=== PATIENT | male | born 1995 | race African-American/Black ===

== ENCOUNTER 2016-08-25 08:01 | Emergency (ER) | payer SELFPAY ==
[~2016-08-25] VITALS: Ht 172.7 cm; Wt 117.9 kg
[2016-08-25] MEDS ORDERED: METF500T4 PO (08:05)
[2016-08-25] MEDS ORDERED: 0.9 % SODIUM CHLORIDE 10 ML DISP.SYRIN. IV PRN (08:15)
--- NOTE | 2016-08-25 08:15 | PHYS DOC ---
Past Medical History Past Medical History: Diabetes-Type I Past Surgical History: No Surgical History Smokin Pack Per Day Alcohol Use: Occasionally Drug Use: None Adult General Chief Complaint Chief Complaint: ABDOMINAL PAIN HPI HPI Patient is a pleasant 21-year-old male with a history of diabetes who presents with nausea vomiting that began last night after eating a meal. He's had no sick contacts no recent travel and no recent consumption of raw foods the pain in the abdomen began in the epigastric region prior to nausea and vomiting. Nausea and vomiting began about 2 hours after eating. Patient admits to having mild yellow strings in his vomit without blood no diarrhea loose stool. Patient admits to no recent antibiotics or travel outside the country. 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 Patient's diabetes has been well-controlled according to him. Urine output has been normal patient denies any fevers, change in symptoms with movements. Pain is worse with vomiting area patient denies any trauma. Review of Systems Review of Systems Constitutional: A patient has had chills and diaphoresis with secondary to pain Eyes: Denies change in visual acuity, redness, or eye pain [] HENT: Denies nasal congestion or sore throat [] Respiratory: Denies cough or shortness of breath [] Cardiovascular: No additional information not addressed in HPI [] GI: Complaints of diffuse abdominal pain with nausea vomiting no diarrhea no stools no constipation : Denies dysuria or hematuria [] Musculoskeletal: Denies back pain or joint pain [] Integument: Denies rash or skin lesions [] Neurologic: Denies headache, focal weakness or sensory changes [] Endocrine: Denies polyuria or polydipsia [] Current Medications Current Medications Current Medications Medications (Trade) Dose Ordered Sig/Stephanie Start Time Stop Time Status Last Admin Dose Admin Hydromorphone HCl (Dilaudid) 1 mg PRN Q15MIN PRN 08/25/16 08:15 08/26/16 08:14 08/25/16 09:40 1 MG Info (Do NOT chart on this entry -- for MONITORING) 1 each PRN DAILY PRN 08/25/16 08:30 08/27/16 08:29 Iohexol (Omnipaque 300 Mg/ml) 75 ml 1X ONCE 08/25/16 09:00 08/25/16 09:03 DC 08/25/16 08:52 75 ML Ondansetron HCl (Zofran) 4 mg 1X ONCE 08/25/16 08:30 08/25/16 08:31 DC 08/25/16 08:25 4 MG Sodium Chloride (Normal Saline Flush) 10 ml QSHIFT PRN 08/25/16 08:15 Allergies Allergies Allergies Coded Allergies Type Severity Reaction Last Updated Verified No Known Drug Allergies 08/25/16 No Physical Exam Physical Exam Constitutional: Well developed, well nourished, patient is mildly obese uncomfortable mildly diaphoretic secondary to pain. HENT: Normocephalic, atraumatic, bilateral external ears normal, dry mucous membranes oral exudates, nose normal. [] Eyes: PERRLA, EOMI, conjunctiva normal, no discharge. [] Neck: Normal range of motion, no tenderness, supple, no stridor. [] Cardiovascular:Heart rate regular rhythm, no murmur [] Lungs & Thorax: Bilateral breath sounds clear to auscultation [] Abdomen: Hyperactive bowel sounds tenderness in the epigastrium with some voluntary guarding no rebound or organomegaly Skin: Warm, diaphoretic secondary pain no erythema no rash Back: No tenderness, no CVA tenderness. [] Extremities: No tenderness, no cyanosis, no clubbing, ROM intact, no edema. [] Neurologic: Alert and oriented X 3, normal motor function, normal sensory function, no focal deficits noted. [] Psychologic: Patient anxious but exhibits normal judgment Current Patient Data Vital Signs Vital Signs Date Time Temp Pulse Resp B/P (MAP) Pulse Ox O2 Delivery O2 Flow Rate FiO2 08/25/16 09:40 16 97 Room Air 08/25/16 08:06 97.9 61 151/62 (91) 97.9 Lab Values Laboratory Tests Test 08/25/16 08:09 08/25/16 08:15 08/25/16 08:27 08/25/16 09:30 Glucose (Fingerstick) 318 mg/dL (70-99) H White Blood Count 5.7 x10^3/uL (4.0-11.0) Red Blood Count 5.30 x10^6/uL (4.30-5.70) Hemoglobin 15.8 g/dL (13.0-17.5) Hematocrit 46.8 % (39.0-53.0) Mean Corpuscular Volume 88 fL (79-100) Mean Corpuscular Hemoglobin 30 pg (25-35) Mean Corpuscular Hemoglobin Concent 34 g/dL (31-37) Red Cell Distribution Width 13.9 % (11.5-14.5) Platelet Count 295 x10^3/uL (140-400) Neutrophils (%) (Auto) 37 % (31-73) Lymphocytes (%) (Auto) 52 % (24-48) H Monocytes (%) (Auto) 9 % (0-9) Eosinophils (%) (Auto) 2 % (0-3) Basophils (%) (Auto) 1 % (0-3) Neutrophils # (Auto) 2.1 x10^3uL (1.8-7.7) Lymphocytes # (Auto) 2.9 x10^3/uL (1.0-4.8) Monocytes # (Auto) 0.5 x10^3/uL (0.0-1.1) Eosinophils # (Auto) 0.1 x10^3/uL (0.0-0.7) Basophils # (Auto) 0.0 x10^3/uL (0.0-0.2) Sodium Level 137 mmol/L (136-145) Potassium Level 4.0 mmol/L (3.5-5.1) Chloride Level 98 mmol/L (98-107) Carbon Dioxide Level 26 mmol/L (21-32) Anion Gap 13 (6-14) Blood Urea Nitrogen 11 mg/dL (8-26) Creatinine 1.3 mg/dL (0.7-1.3) Estimated GFR (Cockcroft-Gault) 69.7 BUN/Creatinine Ratio 8 (6-20) Glucose Level 337 mg/dL (70-99) H Calcium Level 9.2 mg/dL (8.5-10.1) Total Bilirubin 1.4 mg/dL (0.2-1.0) H Aspartate Amino Transferase (AST) 20 U/L (15-37) Alanine Aminotransferase (ALT) 49 U/L (16-63) Alkaline Phosphatase 69 U/L (46-116) Total Protein 8.3 g/dL (6.4-8.2) H Albumin 3.8 g/dL (3.4-5.0) Albumin/Globulin Ratio 0.8 (1.0-1.7) L Lipase 128 U/L (73-393) POC Troponin I 0.00 ng/ml (<0.08) Urine Collection Type Unknown Urine Color Yellow Urine Clarity Clear Urine pH 6.5 Urine Specific [place] >=1.030 Urine Protein Negative mg/dL (NEG-TRACE) Urine Glucose (UA) >=1000 mg/dL (NEG) Urine Ketones (Stick) Negative mg/dL (NEG) Urine Blood Negative (NEG) Urine Nitrite Negative (NEG) Urine Bilirubin Negative (NEG) Urine Urobilinogen Dipstick 0.2 mg/dL (0.2 mg/dL) Urine Leukocyte Esterase Negative (NEG) Urine RBC 0 /HPF (0-2) Urine WBC 5-10 /HPF (0-4) Urine Squamous Epithelial Cells Many /LPF Urine Bacteria Few /HPF (0-FEW) Urine Mucus Mod /LPF Laboratory Tests 08/25/16 08:15 Laboratory Tests 08/25/16 08:15 EKG EKG [] Radiology/Procedures Radiology/Procedures [] PATIENT: TIMA SINGH ACCOUNT: [id number] : 1995 LOCATION: ER AGE: 21 SEX: M EXAM STATUS: PRE ER ORD. PHYSICIAN: GT HODGE MD REASON: diffuse ab pain PROCEDURE: CT ABD PELV W/ IV CONTRST ONLY Indication: Diffuse abdominal pain. Axial imaging through the abdomen and pelvis was performed after the administration of intravenous contrast. No prior studies are available for comparison. The lung bases are clear. The liver is unremarkable. The gallbladder is unremarkable. The pancreas and spleen are unremarkable. No adrenal mass is identified. The kidneys are unremarkable. Aorta is nonaneurysmal. The small and large bowel loops are normal caliber. The appendix is visualized and unremarkable. No free fluid, free air or fluid collection is detected. The bladder is unremarkable. Impression: Unremarkable CT of the abdomen and pelvis. DICTATED and SIGNED BY: SAVANNA HUYNH MD DATE: 08/25/16 0908 CC: GT HODGE MD ~ 80 scan report reviewed by me and Dr. Hodge Course & Med Decision Making Course & Med Decision Making Pertinent Labs and Imaging studies reviewed. (See chart for details) [Patient presents with sudden onset of nausea and vomiting with history of diabetes and be concerned for issues with DKA possible gastroenteritis versus virus versus small bowel obstruction versus other infectious etiologies. Patient live in acute evaluation with CBC CMP serum acetone if required point-of -care glucose fluids antiemetics and pain meds.] Initial reevaluation patient feels improved, only laboratory results that are positive at this time or an elevated glucose of 337 with no evidence of DKA. Reviewed labs white count is normal kidney function is normal patient's vital signs were normal will continue to administer fluids, antiemetics and pain control and discharge patient home once he can tolerate an oral challenge. Patient finally produced His urine for us I reviewed his CAT scan with him and our plan for disposition. Patient is fairly unremarkable as for another pain medication dose before being discharged. Patient tolerated oral challenge seems well-hydrated at this time and will follow-up with his primary care doctor. Analysis reviewed demonstrate any epithelial cells and bacteria likely contaminated specimen he did have +1000 glucose but no ketones. Urine specific gravity was within normal limits. Impression: Nausea and vomiting, abdominal pain unclear etiology, hyperglycemia without evidence of DKA. Disposition: Primary care doctor follow-up 24 hours return to ER for any increasing pain, new symptoms, blood in his stool blood in his vomit. Abdominal pain precautions given. I wanted patient to understand that I doubt this is appendicitis but this is a can team of disease if symptoms continue or localize in the right lower quadrant would this return to the ER for repeat evaluation. Dragon Disclaimer Dragon Disclaimer This electronic medical record was generated, in whole or in part, using a voice recognition dictation system. Departure Departure Impression: Primary Impression: Abdominal pain Additional Impressions: Hyperglycemia Nausea and vomiting Disposition: 01 HOME, SELF-CARE Condition: GUARDED Patient Instructions: Abdominal Pain (Nonspecific), Hyperglycemia, Nausea and Vomiting Additional Instructions: Please do not use your metformin for the next 48 hours as seconds causing an unsafe lactic acidosis from its metabolic properties. Please follow-up with your primary care doctor in 24-48 hours for repeat evaluation if symptoms continue please return to the ER if symptoms increase or worsen or localize to the right lower quadrant. I would also encourage her to continue to force fluid hydrate herself as best can use the nausea and vomiting medications as desired. I also has provided medication for pain that I would like to use for the short- term. Please return immediately for any fever and wanted to point to or if this blood in his stool or vomit. Scripts Dicyclomine Hcl (BENTYL) 10 Mg Capsule 1 CAP PO TID, #15 CAP 1 Refill Prov: GT HODGE MD 08/25/16 Ondansetron (ZOFRAN ODT) 8 Mg Tab.rapdis 8 MG PO BID Y for NAUSEA/VOMITING for 5 Days, #10 TAB Prov: GT HODGE MD 08/25/16 Hydrocodone Bit/Acetaminophen (HYDROCODONE-APAP 5-325 ) 1 Each Tablet 1 TAB PO PRN Q6HRS Y for PAIN, #10 TAB 0 Refills Prov: GT HODGE MD 08/25/16 Problem Qualifiers GT HODGE MD August 25, 2016 08:15
[2016-08-25 08:25] LABS: BASO % 1 % (0-3); EOS % 2 % (0-3); HEMATOCRIT 46.8 % (39.0-53.0); HEMOGLOBIN 15.8 g/dL (13.0-17.5); LYMPH # 2.9 x10^3/uL (1.0-4.8); LYMPH % 52 % (24-48); MEAN CORPUSCULAR HEMOGLOBIN 30 pg (25-35); MEAN CORPUSCULAR HGB CONC 34 g/dL (31-37); MEAN CORPUSCULAR VOLUME 88 fL (79-100); MONO % 9 % (0-9); NEUT % 37 % (31-73); PLATELET COUNT 295 x10^3/uL (140-400); RED CELL DISTRIBUTION WIDTH 13.9 % (11.5-14.5); WHITE BLOOD COUNT 5.7 x10^3/uL (4.0-11.0)
[2016-08-25] MEDS: HYDROmorphone 2 MG/ML VIAL IV/SQ PRN ×2 (08:26→09:40)
[2016-08-25] MEDS ORDERED: ONDANSETRON PF 4 MG/2 ML VIAL. IV ONE (08:30)
[2016-08-25] MEDS ORDERED: IV NORMAL SALINE 1000ML BAG 1,000 ML IV SCH (08:30)
[2016-08-25] MEDS ORDERED: CONTRAST GIVEN MC PRN (08:30)
[2016-08-25 08:38] LABS: CALCIUM 9.2 mg/dL (8.5-10.1); CREATININE 1.3 mg/dL (0.7-1.3); GFR 69.7
[2016-08-25 08:44] LABS: ALBUMIN 3.8 g/dL (3.4-5.0); ALBUMIN/GLOBULIN RATIO 0.8 (1.0-1.7); TOTAL BILIRUBIN 1.4 mg/dL (0.2-1.0); TOTAL PROTEIN 8.3 g/dL (6.4-8.2)
[2016-08-25] MEDS ORDERED: IOHEXOL 300 MG/ML 75 ML VIAL IV ONE (09:00)
--- NOTE | 2016-08-25 09:13 | RAD ---
Indication: Diffuse abdominal pain. Axial imaging through the abdomen and pelvis was performed after the administration of intravenous contrast. No prior studies are available for comparison. The lung bases are clear. The liver is unremarkable. The gallbladder is unremarkable. The pancreas and spleen are unremarkable. No adrenal mass is identified. The kidneys are unremarkable. Aorta is nonaneurysmal. The small and large bowel loops are normal caliber. The appendix is visualized and unremarkable. No free fluid, free air or fluid collection is detected. The bladder is unremarkable. Impression: Unremarkable CT of the abdomen and pelvis.
[2016-08-25 09:35] LABS: BILIRUBIN,URINE NEGATIVE (NEG); GLUCOSE,URINE >=1000 mg/dL (NEG); NITRITE,URINE NEGATIVE (NEG); PH,URINE 6.5; PROTEIN,URINE NEGATIVE (NEG-TRACE); UROBILINOGEN,URINE 0.2 mg/dL (0.2 mg/dL)
[2016-08-25 09:48] LABS: BACTERIA,URINE FEW /HPF (0-FEW); RBC,URINE 0 /HPF (0-2); SQUAMOUS EPITHELIAL CELL,UR MANY /LPF
[2016-08-25 10:00] VITALS: BP 111/73
[2016-08-25] MEDS ORDERED: HYDR-2666 PO (10:04)
[2016-08-25] MEDS ORDERED: ONDA8TAB12 PO (10:04)
[2016-08-25] MEDS ORDERED: DICY10CA53 PO (10:04)
== END 2016-08-25 11:08 | disposition home or self-care (01) ==
LOC: ER 08:01
DX: R11.2 Nausea with vomiting, unspecified (principal); R10.84 Generalized abdominal pain; R10.13 Epigastric pain; E10.9 Type 1 diabetes mellitus without complications; R73.9 Hyperglycemia, unspecified; F17.200 Nicotine dependence, unspecified, uncomplicated
CPT/HCPCS: 36415; 74177; 80053; 81001; 82947; 83690; 84484; 85027; 87086; 96361; 96374; 96375; 99285; J1170; J2405; J7030; Q9967

== ENCOUNTER 2017-12-23 03:02 | Inpatient (IN) | payer OTHER ==
[~2017-12-23] VITALS: Ht 172.7 cm; Wt 77.2 kg
[~2017-12-23 03:02] MED LIST: DICY10CA53 PO; HYDR-2758 PO; METF500T16 PO; ONDA8TAB12 PO
[2017-12-23] MEDS ORDERED: INSULIN,REGULAR 150 UNIT DRIP 150 ML IV ONE (03:30)
[2017-12-23] MEDS ORDERED: IV NORMAL SALINE 1000ML BAG 1,000 ML IV ONE ×2 (03:30)
--- NOTE | 2017-12-23 03:30 | PHYS DOC ---
Past Medical History Past Medical History: Diabetes-Type I Past Surgical History: No Surgical History Smoking: Cigarettes Alcohol Use: Occasionally Drug Use: Marijuana Adult General Chief Complaint Chief Complaint: NAUSEA/VOMITING/DIARRHA HPI HPI Patient is a 22-year-old -German male who has a past history of insulin -dependent diabetes. He states he has not taken his insulin for several days, and began experiencing some vomiting this evening. He denies any pain, denies any chest pain or shortness of breath, abdominal pain, diarrhea, dizziness or lightheadedness. There are no alleviating or exacerbating factors to his symptoms. He has been in DKA in the past. His bedside blood sugar read "high". Review of Systems Review of Systems Constitutional: Denies fever or chills [] Eyes: Denies change in visual acuity, redness, or eye pain [] HENT: Denies nasal congestion or sore throat [] Respiratory: Denies cough or shortness of breath [] Cardiovascular: The patient denies any shortness of breath, chest pain, palpitations, or orthopnea [] GI: Denies abdominal pain, bloody emesis, bloody stools or diarrhea [] : Denies dysuria or hematuria [] Musculoskeletal: Denies back pain or joint pain [] Integument: Denies rash or skin lesions [] Neurologic: Denies headache, focal weakness or sensory changes [] Endocrine: Denies polyuria or polydipsia [] All other systems were reviewed and found to be within normal limits, except as documented in this note. Current Medications Current Medications Current Medications Medications (Trade) Dose Ordered Sig/Stephanie Start Time Stop Time Status Last Admin Dose Admin Insulin Human Regular 150 ml @ 0 mls/hr 1X ONCE 12/23/17 03:30 12/23/17 03:33 DC Sodium Chloride 1,000 ml @ 1,000 mls/hr 1X ONCE 12/23/17 03:30 12/23/17 04:29 12/23/17 03:30 1,000 MLS/HR Allergies Allergies Allergies Coded Allergies Type Severity Reaction Last Updated Verified No Known Drug Allergies 08/25/16 No Physical Exam Physical Exam PHYSICAL EXAM: CONSTITUTIONAL: Well developed, well nourished HEAD: normocephalic, atraumatic EENT: PERRL, EOMI. Conjunctivae normal color, sclerae non-icteric; mildly dry mucous membranes. NECK: Supple, non-tender; no meningismus. LUNGS: Lungs CTA, breathing even and unlabored. Normal air movement. HEART: Regular rate and rhythm, no murmur CHEST: No deformity; non-tender ABDOMEN: The abdomen is soft, and non-tender, no masses or bruits. EXTREM: Normal ROM; no deformity, no calf tenderness. Normal pulses palpable in all extremities. There is no pedal edema. SKIN: No rash; no diaphoresis NEURO: Alert; normal speech and cognition; CN's grossly intact; strength grossly intact without focal deficit. BACK: No CVA TTP. Current Patient Data Vital Signs Vital Signs Date Time Temp Pulse Resp B/P (MAP) Pulse Ox O2 Delivery O2 Flow Rate FiO2 12/23/17 03:17 97.4 55 18 122/62 (82) 98 Room Air 97.4 Lab Values Laboratory Tests Test 12/23/17 03:14 12/23/17 03:20 12/23/17 03:38 Urine Collection Type Unknown Urine Color Yellow Urine Clarity Clear Urine pH 7.0 Urine Specific [place] >=1.030 Urine Protein Negative mg/dL (NEG-TRACE) Urine Glucose (UA) >=1000 mg/dL (NEG) Urine Ketones (Stick) Trace mg/dL (NEG) Urine Blood Negative (NEG) Urine Nitrite Negative (NEG) Urine Bilirubin Negative (NEG) Urine Urobilinogen Dipstick 0.2 mg/dL (0.2 mg/dL) Urine Leukocyte Esterase Negative (NEG) Urine RBC 0 /HPF (0-2) Urine WBC Occ /HPF (0-4) Urine Squamous Epithelial Cells Few /LPF Urine Bacteria 0 /HPF (0-FEW) White Blood Count 9.7 x10^3/uL (4.0-11.0) Red Blood Count 5.09 x10^6/uL (4.30-5.70) Hemoglobin 15.9 g/dL (13.0-17.5) Hematocrit 44.9 % (39.0-53.0) Mean Corpuscular Volume 88 fL (79-100) Mean Corpuscular Hemoglobin 31 pg (25-35) Mean Corpuscular Hemoglobin Concent 36 g/dL (31-37) Red Cell Distribution Width 12.6 % (11.5-14.5) Platelet Count 378 x10^3/uL (140-400) Neutrophils (%) (Auto) 63 % (31-73) Lymphocytes (%) (Auto) 31 % (24-48) Monocytes (%) (Auto) 6 % (0-9) Eosinophils (%) (Auto) 1 % (0-3) Basophils (%) (Auto) 0 % (0-3) Neutrophils # (Auto) 6.1 x10^3uL (1.8-7.7) Lymphocytes # (Auto) 3.0 x10^3/uL (1.0-4.8) Monocytes # (Auto) 0.6 x10^3/uL (0.0-1.1) Eosinophils # (Auto) 0.1 x10^3/uL (0.0-0.7) Basophils # (Auto) 0.0 x10^3/uL (0.0-0.2) Sodium Level 134 mmol/L (136-145) L Potassium Level 4.2 mmol/L (3.5-5.1) Chloride Level 96 mmol/L (98-107) L Carbon Dioxide Level 28 mmol/L (21-32) Anion Gap 10 (6-14) Blood Urea Nitrogen 18 mg/dL (8-26) Creatinine 1.2 mg/dL (0.7-1.3) Estimated GFR (Cockcroft-Gault) 91.6 BUN/Creatinine Ratio 15 (6-20) Glucose Level 588 mg/dL (70-99) *H Calcium Level 9.9 mg/dL (8.5-10.1) Phosphorus Level 4.5 mg/dL (2.6-4.7) Magnesium Level 1.7 mg/dL (1.8-2.4) L Total Bilirubin 0.6 mg/dL (0.2-1.0) Aspartate Amino Transferase (AST) 13 U/L (15-37) L Alanine Aminotransferase (ALT) 19 U/L (16-63) Alkaline Phosphatase 155 U/L (46-116) H Total Protein 7.6 g/dL (6.4-8.2) Albumin 3.5 g/dL (3.4-5.0) Albumin/Globulin Ratio 0.9 (1.0-1.7) L Acetone Level Neg (NEG) POC Venous pH 7.49 (7.32-7.42) H POC Venous pCO2 43 mmHg (41-51) POC Venous pO2 72 mmHg (20-40) H Venous Blood HCO3 32 mmol/L (24-28) H POC Venous O2 Saturation (Oleg) 95 % POC FiO2 21.0 Laboratory Tests 12/23/17 03:20 Laboratory Tests 12/23/17 03:20 EKG EKG [Normal sinus rhythm at a rate of 54 bpm, normal axis, normal intervals. There are no acute ischemic ST/T changes.] Radiology/Procedures Radiology/Procedures [] Course & Med Decision Making Course & Med Decision Making Pertinent Lab studies reviewed. (See chart for details) []4:15 AM: The patient's condition remained stable. Although he does not appear to be in DKA he states he goes into DKA very easily. The patient be admitted for further glycemic management. K+ will be added to his fluids given his insulin drip. Dragon Disclaimer Dragon Disclaimer This electronic medical record was generated, in whole or in part, using a voice recognition dictation system. Departure Departure Impression: Primary Impression: Hyperglycemia Additional Impression: Noncompliance with medication regimen Disposition: ADMITTED INPATIENT Admitting Physician: Elizabeth Sr Condition: STABLE Referrals: NO PCP (PCP) Problem Qualifiers SHABBIR GORDON MD Dec 23, 2017 03:30
[2017-12-23 03:34] LABS: BILIRUBIN,URINE NEGATIVE (NEG); CLARITY,URINE CLEAR; COLOR,URINE YELLOW; NITRITE,URINE NEGATIVE (NEG); PROTEIN,URINE NEGATIVE (NEG-TRACE); UROBILINOGEN,URINE 0.2 mg/dL (0.2 mg/dL)
[2017-12-23 03:43] LABS: ISTAT BE VENOUS 9 mmol/L (0-3); ISTAT HCO3 VEN 32 mmol/L (24-28); ISTAT PCO2 VEN 43 mmHg (41-51); ISTAT PH VEN 7.49 (7.32-7.42); ISTAT PO2 VEN 72 mmHg (20-40); ISTAT SAT O2 VEN 95 %; ISTAT TCO2 VEN 34 mmol/L (21-32)
[2017-12-23 03:50] LABS: ALBUMIN 3.5 g/dL (3.4-5.0); ALBUMIN/GLOBULIN RATIO 0.9 (1.0-1.7); ALK PHOS 155 U/L (46-116); ALT (SGPT) 19 U/L (16-63); ANION GAP 10 (6-14); AST (SGOT) 13 U/L (15-37); BLOOD UREA NITROGEN 18 mg/dL (8-26); BUN/CREATININE RATIO 15 (6-20); CALCIUM 9.9 mg/dL (8.5-10.1); CARBON DIOXIDE 28 mmol/L (21-32); CHLORIDE 96 mmol/L (98-107); CREATININE 1.2 mg/dL (0.7-1.3); GFR 91.6; MAGNESIUM 1.7 mg/dL (1.8-2.4); PHOSPHORUS 4.5 mg/dL (2.6-4.7); POTASSIUM 4.2 mmol/L (3.5-5.1); SODIUM 134 mmol/L (136-145); TOTAL BILIRUBIN 0.6 mg/dL (0.2-1.0); TOTAL PROTEIN 7.6 g/dL (6.4-8.2)
[2017-12-23 03:51] LABS: GLUCOSE 588 mg/dL (70-99)
[2017-12-23 03:52] LABS: BASO % 0 % (0-3); EOS # 0.1 x10^3/uL (0.0-0.7); EOS % 1 % (0-3); HEMATOCRIT 44.9 % (39.0-53.0); HEMOGLOBIN 15.9 g/dL (13.0-17.5); LYMPH % 31 % (24-48); MEAN CORPUSCULAR HEMOGLOBIN 31 pg (25-35); MEAN CORPUSCULAR HGB CONC 36 g/dL (31-37); MEAN CORPUSCULAR VOLUME 88 fL (79-100); MONO # 0.6 x10^3/uL (0.0-1.1); MONO % 6 % (0-9); NEUT # 6.1 x10^3uL (1.8-7.7); NEUT % 63 % (31-73); PLATELET COUNT 378 x10^3/uL (140-400); RED BLOOD COUNT 5.09 x10^6/uL (4.30-5.70); RED CELL DISTRIBUTION WIDTH 12.6 % (11.5-14.5); WHITE BLOOD COUNT 9.7 x10^3/uL (4.0-11.0)
[2017-12-23 03:59] LABS: ACETONE NEG (NEG)
[2017-12-23 04:02] LABS: BACTERIA,URINE 0 /HPF (0-FEW); RBC,URINE 0 /HPF (0-2); SQUAMOUS EPITHELIAL CELL,UR FEW /LPF; WBC,URINE OCC /HPF (0-4)
[2017-12-23] MEDS ORDERED: MAGNESIUM SULFATE 1GM 100 ML IV ONE (04:30)
[2017-12-23] MEDS ORDERED: POTASSIUM CL 40MEQ IN 0.9%NACL 1,000 ML IV ONE (04:30)
[2017-12-23 05:40] VITALS: BP 107/54
--- NOTE | 2017-12-23 07:32 | EKG ---
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
[2017-12-23 07:38] VITALS: BP 106/56
[2017-12-23] MEDS ORDERED: INSULIN GLARGINE 300 UNITS/3 ML INSULN.PEN. SQ ONE (11:30)
[2017-12-23 11:45] VITALS: BP 105/53
[2017-12-23] MEDS ORDERED: traMADol 50 MG TABLET PO PRN (12:00)
[2017-12-23] MEDS ORDERED: DEXTROSE 50% 25 GM / 50ML DISP.SYRIN. IV PRN (12:00)
[2017-12-23] MEDS: INSULIN LISPRO 300 UNITS/3 ML INSULN.PEN. SQ SCH ×3 (12:00→17:19)
[2017-12-23] MEDS ORDERED: DOCUSATE SODIUM 100 MG CAPSULE. PO PRN (12:00)
[2017-12-23] MEDS ORDERED: ACETAMINOPHEN 325 MG TABLET. PO PRN (12:00)
[2017-12-23] MEDS ORDERED: ONDANSETRON PF 4 MG/2 ML VIAL. IV PRN (12:00)
[2017-12-23] MEDS ORDERED: MORPHINE SULFATE 2 MG/ML VIAL. IV PRN (12:00)
[2017-12-23 13:19] LABS: CALCIUM 8.6 mg/dL (8.5-10.1); GFR 113.1; MAGNESIUM 1.9 mg/dL (1.8-2.4); POTASSIUM 3.6 mmol/L (3.5-5.1)
--- NOTE | 2017-12-23 14:12 | PDOC1 ---
History and Physical Date of Admission Date of Admission 12/23/17 Identification/Chief Complaint Chief Complaint N/V Source Source: Chart review, Patient History of Present Illness History of Present Illness Patient is a 22-year-old -[place] male who has a past history of insulin -dependent diabetes for N/V. Pt has type 1 DM, on lantus 24u qhs, 7u tid at home. not taking it for 2 days since run off needles. has had N/V yesterday, mild abd pain, all gone today. came to ER last night, Glucose >500, no DKA, on insulin drip overnight. no . He denies any pain, denies any chest pain or shortness of breath, abdominal pain, diarrhea, dizziness or lightheadedness. There are no alleviating or exacerbating factors to his symptoms. He has been in DKA in the past. His bedside blood sugar read "high". Past Medical History Endocrine: Diabetes Past Surgical History Past Surgical History: No pertinent history Family History Family History: Hypertension Social History Smoke: <1 pack per day ALCOHOL: occassional Drugs: Marijuana Current Problem List Problem List Problems Medical Problems: (1) Hyperglycemia Status: Acute (2) Noncompliance with medication regimen Status: Acute Current Medications Current Medications Current Medications Medications (Trade) Dose Ordered Sig/Stephanie Start Time Stop Time Status Last Admin Dose Admin Acetaminophen (Tylenol) 650 mg PRN Q6HRS PRN 12/23/17 12:00 Dextrose (Dextrose 50%-Water Syringe) 12.5 gm PRN Q15MIN PRN 12/23/17 12:00 Docusate Sodium (Colace) 100 mg PRN DAILY PRN 12/23/17 12:00 Insulin Glargine (Lantus) 20 units QHS 12/23/17 21:00 Insulin Human Lispro (HumaLOG) 0-9 UNITS TIDWMEALS 12/23/17 12:00 Insulin Human Regular 150 ml @ 0 mls/hr 1X ONCE 12/23/17 03:30 12/23/17 03:33 DC 12/23/17 04:46 9 MLS/HR Magnesium Sulfate/ Dextrose 100 ml @ 100 mls/hr 1X ONCE 12/23/17 04:30 12/23/17 05:29 DC 12/23/17 11:26 100 MLS/HR Morphine Sulfate (Morphine Sulfate) 2 mg PRN Q2HR PRN 12/23/17 12:00 Ondansetron HCl (Zofran) 4 mg PRN Q6HRS PRN 12/23/17 12:00 Potassium Chloride/Sodium Chloride 1,000 ml @ 125 mls/hr 1X ONCE 12/23/17 04:30 12/23/17 12:29 DC 12/23/17 06:09 125 MLS/HR Sodium Chloride 1,000 ml @ 1,000 mls/hr 1X ONCE 12/23/17 03:30 12/23/17 04:29 DC 12/23/17 03:30 1,000 MLS/HR Tramadol HCl (Ultram) 50 mg PRN Q6HRS PRN 12/23/17 12:00 Allergies Allergies Allergies Coded Allergies Type Severity Reaction Last Updated Verified No Known Drug Allergies 08/25/16 No ROS Review of System CONSTITUTIONAL: No fever or chills EYES: No recent changes SKIN: No rash or itching CARDIOVASCULAR: No chest pain, syncope, palpitations, or edema RESPIRATORY: No SOB or cough GASTROINTESTINAL: No nausea, vomiting or abdominal pain NEUROLOGICAL: No headaches or weakness ENDOCRINE: No cold or heat intolerance GENITOURINARY: No urgency or frequency of urination MUSCULOSKELETAL: No back pain or joint pain LYMPHATICS: No enlarged lymph nodes PSYCHIATRIC: No anxiety or depression Physical Exam Physical Exam GEN.: No apparent distress. Alert and oriented. HEENT: Head is normocephalic, atraumatic NECK: Supple. LUNGS: Clear to auscultation. HEART: RRR, S1, S2 present. Peripheral pulses intact ABDOMEN: Soft, nontender. Positive bowel sounds. EXTREMITIES: Without any cyanosis. NEUROLOGIC: Normal speech, normal tone PSYCHIATRIC: Normal affect, normal mood. SKIN: No ulcerations Vitals Vitals Vital Signs Date Time Temp Pulse Resp B/P (MAP) Pulse Ox O2 Delivery O2 Flow Rate FiO2 12/23/17 11:45 98.1 70 18 105/53 (70) 100 Room Air 98.1 Labs Labs Laboratory Tests Test 12/23/17 03:14 12/23/17 03:20 12/23/17 03:38 12/23/17 04:24 Urine Collection Type Unknown Urine Color Yellow Urine Clarity Clear Urine pH 7.0 Urine Specific Julian >=1.030 Urine Protein Negative mg/dL (NEG-TRACE) Urine Glucose (UA) >=1000 mg/dL (NEG) Urine Ketones (Stick) Trace mg/dL (NEG) Urine Blood Negative (NEG) Urine Nitrite Negative (NEG) Urine Bilirubin Negative (NEG) Urine Urobilinogen Dipstick 0.2 mg/dL (0.2 mg/dL) Urine Leukocyte Esterase Negative (NEG) Urine RBC 0 /HPF (0-2) Urine WBC Occ /HPF (0-4) Urine Squamous Epithelial Cells Few /LPF Urine Bacteria 0 /HPF (0-FEW) White Blood Count 9.7 x10^3/uL (4.0-11.0) Red Blood Count 5.09 x10^6/uL (4.30-5.70) Hemoglobin 15.9 g/dL (13.0-17.5) Hematocrit 44.9 % (39.0-53.0) Mean Corpuscular Volume 88 fL (79-100) Mean Corpuscular Hemoglobin 31 pg (25-35) Mean Corpuscular Hemoglobin Concent 36 g/dL (31-37) Red Cell Distribution Width 12.6 % (11.5-14.5) Platelet Count 378 x10^3/uL (140-400) Neutrophils (%) (Auto) 63 % (31-73) Lymphocytes (%) (Auto) 31 % (24-48) Monocytes (%) (Auto) 6 % (0-9) Eosinophils (%) (Auto) 1 % (0-3) Basophils (%) (Auto) 0 % (0-3) Neutrophils # (Auto) 6.1 x10^3uL (1.8-7.7) Lymphocytes # (Auto) 3.0 x10^3/uL (1.0-4.8) Monocytes # (Auto) 0.6 x10^3/uL (0.0-1.1) Eosinophils # (Auto) 0.1 x10^3/uL (0.0-0.7) Basophils # (Auto) 0.0 x10^3/uL (0.0-0.2) Sodium Level 134 mmol/L (136-145) Potassium Level 4.2 mmol/L (3.5-5.1) Chloride Level 96 mmol/L (98-107) Carbon Dioxide Level 28 mmol/L (21-32) Anion Gap 10 (6-14) Blood Urea Nitrogen 18 mg/dL (8-26) Creatinine 1.2 mg/dL (0.7-1.3) Estimated GFR (Cockcroft-Gault) 91.6 BUN/Creatinine Ratio 15 (6-20) Glucose Level 588 mg/dL (70-99) Calcium Level 9.9 mg/dL (8.5-10.1) Phosphorus Level 4.5 mg/dL (2.6-4.7) Magnesium Level 1.7 mg/dL (1.8-2.4) Total Bilirubin 0.6 mg/dL (0.2-1.0) Aspartate Amino Transf (AST/SGOT) 13 U/L (15-37) Alanine Aminotransferase (ALT/SGPT) 19 U/L (16-63) Alkaline Phosphatase 155 U/L (46-116) Total Protein 7.6 g/dL (6.4-8.2) Albumin 3.5 g/dL (3.4-5.0) Albumin/Globulin Ratio 0.9 (1.0-1.7) Acetone Level Neg (NEG) Bedside Venous pH 7.49 (7.32-7.42) Bedside Venous pCO2 43 mmHg (41-51) Bedside Venous pO2 72 mmHg (20-40) Venous Blood HCO3 32 mmol/L (24-28) POC Venous O2 Saturation (Oleg) 95 % Bedside FiO2 21.0 Glucose (Fingerstick) 512 mg/dL (70-99) Test 12/23/17 07:04 12/23/17 07:56 12/23/17 09:07 12/23/17 09:58 Glucose (Fingerstick) 283 mg/dL (70-99) 180 mg/dL (70-99) 243 mg/dL (70-99) 255 mg/dL (70-99) Test 12/23/17 11:08 12/23/17 11:52 12/23/17 12:50 Glucose (Fingerstick) 84 mg/dL (70-99) 87 mg/dL (70-99) Sodium Level 136 mmol/L (136-145) Potassium Level 3.6 mmol/L (3.5-5.1) Chloride Level 101 mmol/L (98-107) Carbon Dioxide Level 28 mmol/L (21-32) Anion Gap 7 (6-14) Blood Urea Nitrogen 13 mg/dL (8-26) Creatinine 1.0 mg/dL (0.7-1.3) Estimated GFR (Cockcroft-Gault) 113.1 Glucose Level 197 mg/dL (70-99) Calcium Level 8.6 mg/dL (8.5-10.1) Magnesium Level 1.9 mg/dL (1.8-2.4) Laboratory Tests Test 12/23/17 03:14 12/23/17 03:20 12/23/17 03:38 12/23/17 04:24 Urine Collection Type Unknown Urine Color Yellow Urine Clarity Clear Urine pH 7.0 Urine Specific Julian >=1.030 Urine Protein Negative mg/dL (NEG-TRACE) Urine Glucose (UA) >=1000 mg/dL (NEG) Urine Ketones (Stick) Trace mg/dL (NEG) Urine Blood Negative (NEG) Urine Nitrite Negative (NEG) Urine Bilirubin Negative (NEG) Urine Urobilinogen Dipstick 0.2 mg/dL (0.2 mg/dL) Urine Leukocyte Esterase Negative (NEG) Urine RBC 0 /HPF (0-2) Urine WBC Occ /HPF (0-4) Urine Squamous Epithelial Cells Few /LPF Urine Bacteria 0 /HPF (0-FEW) White Blood Count 9.7 x10^3/uL (4.0-11.0) Red Blood Count 5.09 x10^6/uL (4.30-5.70) Hemoglobin 15.9 g/dL (13.0-17.5) Hematocrit 44.9 % (39.0-53.0) Mean Corpuscular Volume 88 fL (79-100) Mean Corpuscular Hemoglobin 31 pg (25-35) Mean Corpuscular Hemoglobin Concent 36 g/dL (31-37) Red Cell Distribution Width 12.6 % (11.5-14.5) Platelet Count 378 x10^3/uL (140-400) Neutrophils (%) (Auto) 63 % (31-73) Lymphocytes (%) (Auto) 31 % (24-48) Monocytes (%) (Auto) 6 % (0-9) Eosinophils (%) (Auto) 1 % (0-3) Basophils (%) (Auto) 0 % (0-3) Neutrophils # (Auto) 6.1 x10^3uL (1.8-7.7) Lymphocytes # (Auto) 3.0 x10^3/uL (1.0-4.8) Monocytes # (Auto) 0.6 x10^3/uL (0.0-1.1) Eosinophils # (Auto) 0.1 x10^3/uL (0.0-0.7) Basophils # (Auto) 0.0 x10^3/uL (0.0-0.2) Sodium Level 134 mmol/L (136-145) Potassium Level 4.2 mmol/L (3.5-5.1) Chloride Level 96 mmol/L (98-107) Carbon Dioxide Level 28 mmol/L (21-32) Anion Gap 10 (6-14) Blood Urea Nitrogen 18 mg/dL (8-26) Creatinine 1.2 mg/dL (0.7-1.3) Estimated GFR (Cockcroft-Gault) 91.6 BUN/Creatinine Ratio 15 (6-20) Glucose Level 588 mg/dL (70-99) Calcium Level 9.9 mg/dL (8.5-10.1) Phosphorus Level 4.5 mg/dL (2.6-4.7) Magnesium Level 1.7 mg/dL (1.8-2.4) Total Bilirubin 0.6 mg/dL (0.2-1.0) Aspartate Amino Transf (AST/SGOT) 13 U/L (15-37) Alanine Aminotransferase (ALT/SGPT) 19 U/L (16-63) Alkaline Phosphatase 155 U/L (46-116) Total Protein 7.6 g/dL (6.4-8.2) Albumin 3.5 g/dL (3.4-5.0) Albumin/Globulin Ratio 0.9 (1.0-1.7) Acetone Level Neg (NEG) Bedside Venous pH 7.49 (7.32-7.42) Bedside Venous pCO2 43 mmHg (41-51) Bedside Venous pO2 72 mmHg (20-40) Venous Blood HCO3 32 mmol/L (24-28) POC Venous O2 Saturation (Oleg) 95 % Bedside FiO2 21.0 Glucose (Fingerstick) 512 mg/dL (70-99) Test 12/23/17 07:04 12/23/17 07:56 12/23/17 09:07 12/23/17 09:58 Glucose (Fingerstick) 283 mg/dL (70-99) 180 mg/dL (70-99) 243 mg/dL (70-99) 255 mg/dL (70-99) Test 12/23/17 11:08 12/23/17 11:52 12/23/17 12:50 Glucose (Fingerstick) 84 mg/dL (70-99) 87 mg/dL (70-99) Sodium Level 136 mmol/L (136-145) Potassium Level 3.6 mmol/L (3.5-5.1) Chloride Level 101 mmol/L (98-107) Carbon Dioxide Level 28 mmol/L (21-32) Anion Gap 7 (6-14) Blood Urea Nitrogen 13 mg/dL (8-26) Creatinine 1.0 mg/dL (0.7-1.3) Estimated GFR (Cockcroft-Gault) 113.1 Glucose Level 197 mg/dL (70-99) Calcium Level 8.6 mg/dL (8.5-10.1) Magnesium Level 1.9 mg/dL (1.8-2.4) VTE Prophylaxis Ordered VTE Prophylaxis Devices: Yes VTE Pharmacological Prophylaxi: Yes Assessment/Plan Assessment/Plan uncontrolled dm1 smoker drug use with marijuana hypomagnesemia plan: no DKA stop insulin drip lantus 15u x1 then cont lantus 20u qhs, humalog 6u tid, ssi dc ivf ada diet repleted Mag repeat labs dvt ppx pt concerned about pancreatic Ca in family, asked him to stop smoking. pt understood. check hba1c WILLIAM WANG MD Dec 23, 2017 14:12
[2017-12-23] MEDS ORDERED: ENOXAPARIN 40 MG/0.4 ML SYRINGE. SQ SCH (15:00)
[2017-12-23 15:30] VITALS: BP 111/65
[2017-12-23 19:26] VITALS: BP 116/51
[2017-12-23] MEDS ORDERED: INSULIN GLARGINE 300 UNITS/3 ML INSULN.PEN. SQ SCH (21:00)
[2017-12-23 23:52] VITALS: BP 127/65
[2017-12-24 03:05] VITALS: BP 115/67
[2017-12-24 04:48] LABS: BASO % 0 % (0-3); EOS # 0.1 x10^3/uL (0.0-0.7); EOS % 1 % (0-3); HEMOGLOBIN 14.2 g/dL (13.0-17.5); LYMPH # 3.6 x10^3/uL (1.0-4.8); LYMPH % 53 % (24-48); MEAN CORPUSCULAR HEMOGLOBIN 31 pg (25-35); MEAN CORPUSCULAR HGB CONC 35 g/dL (31-37); MEAN CORPUSCULAR VOLUME 90 fL (79-100); MONO # 0.4 x10^3/uL (0.0-1.1); MONO % 5 % (0-9); NEUT # 2.8 x10^3uL (1.8-7.7); NEUT % 41 % (31-73); PLATELET COUNT 310 x10^3/uL (140-400); RED BLOOD COUNT 4.56 x10^6/uL (4.30-5.70); RED CELL DISTRIBUTION WIDTH 12.9 % (11.5-14.5); WHITE BLOOD COUNT 6.9 x10^3/uL (4.0-11.0)
[2017-12-24 04:56] LABS: CALCIUM 8.6 mg/dL (8.5-10.1); CREATININE 1.1 mg/dL (0.7-1.3); GFR 101.3; POTASSIUM 3.6 mmol/L (3.5-5.1)
[2017-12-24 07:00] VITALS: BP 116/77
[2017-12-24] MEDS: INSULIN LISPRO 300 UNITS/3 ML INSULN.PEN. SQ SCH ×4 (08:28→12:16)
[2017-12-24 10:38] VITALS: BP 110/72
[2017-12-24] MEDS ORDERED: INSU100I13 SQ (11:15)
[2017-12-24] MEDS ORDERED: INSU100I11 SQ (11:15)
--- NOTE | 2017-12-24 13:06 | PDOC3 ---
Discharge Summary [facility] Date of Admission: Dec 23, 2017 Discharge Date: Dec 24, 2017 Admitting Diagnosis uncontrolled dm1 , hba1c 17 smoker drug use with marijuana hypomagnesemia Final Diagnosis Brief Hospital Course Patient is a 22-year-old -[place] male who has a past history of insulin-dependent diabetes for N/V. Pt has type 1 DM, on lantus 24u qhs, 7u tid at home. not taking it for 2 days since run off needles. has had N/V yesterday, mild abd pain, all gone today. came to ER last night, Glucose >500, no DKA, on insulin drip overnight. no . He denies any pain, denies any chest pain or shortness of breath, abdominal pain, diarrhea, dizziness or lightheadedness. There are no alleviating or exacerbating factors to his symptoms. He has been in DKA in the past. His bedside blood sugar read "high". pt sugar is better with the insulin drip. now at 200s. feels ok. stable to dc. insulin pen needle prescribed. dc time 35min. GEN.: No apparent distress. Alert and oriented. HEENT: Head is normocephalic, atraumatic NECK: Supple. LUNGS: Clear to auscultation. HEART: RRR, S1, S2 present. Peripheral pulses intact ABDOMEN: Soft, nontender. Positive bowel sounds. EXTREMITIES: Without any cyanosis. NEUROLOGIC: Normal speech, normal tone PSYCHIATRIC: Normal affect, normal mood. SKIN: No ulcerations Patient History: Patient reports no known family medical history. Disposition home CONDITION AT DISCHARGE: Improved Scheduled Dicyclomine Hcl (Bentyl), 1 CAP PO TID Insulin Glargine,Hum.rec.anlog (Lantus Solostar), 25 UNITS SQ QHS Insulin Lispro (Humalog), 8 UNITS SQ TIDAC Scheduled PRN Hydrocodone Bit/Acetaminophen (Hydrocodone-Apap 5-325 ), 1 TAB PO PRN Q6HRS PRN for PAIN Ondansetron (Zofran Odt), 8 MG PO BID PRN for NAUSEA/VOMITING Discontinued Medications Metformin Hcl (Metformin Hcl), 500 MG PO BIDWMEALS, (Reported) WILLIAM WANG MD Dec 24, 2017 13:06
[2017-12-24] MEDS ORDERED: INSULIN LISPRO 300 UNITS/3 ML INSULN.PEN. SQ SCH (16:30)
[2017-12-24] MEDS ORDERED: INSULIN GLARGINE 300 UNITS/3 ML INSULN.PEN. SQ SCH (21:00)
== END 2017-12-24 13:15 | disposition home or self-care (01) | DRG 639 ==
LOC: ER 03:02 → 6 SOUTH 04:15
PROVIDERS: ADMIT Internal Medicine; ATTEND Internal Medicine
DX: E10.65 Type 1 diabetes mellitus with hyperglycemia (principal); F12.90 Cannabis use, unspecified, uncomplicated; F17.210 Nicotine dependence, cigarettes, uncomplicated; E83.42 Hypomagnesemia; Z79.4 Long term (current) use of insulin; Z91.14 Patient's other noncompliance with medication regimen; Z82.49 Family history of ischemic heart disease and other diseases of the circulatory system
CPT/HCPCS: 36415; 80048; 80053; 81001; 82010; 82803; 82962; 83036; 83735; 84100; 85025; 93005; 96365; J1815; J3475; J3480; J7030; 99285-25

== ENCOUNTER 2018-02-03 07:48 | Emergency (ER) | payer OTHER ==
[~2018-02-03] VITALS: Ht 172.7 cm; Wt 77.1 kg
[~2018-02-03 07:48] MED LIST changes: +INSU100I11 SQ; +INSU100I13 SQ
[2018-02-03] MEDS ORDERED: ONDANSETRON PF 4 MG/2 ML VIAL. IV ONE (08:15)
[2018-02-03] MEDS ORDERED: IV NORMAL SALINE 1000ML BAG 1,000 ML IV SCH (08:15)
[2018-02-03] MEDS ORDERED: INSULIN,REGULAR 150 UNIT DRIP 150 ML IV ONE (08:15)
--- NOTE | 2018-02-03 08:18 | PHYS DOC ---
Past Medical History Past Medical History: Diabetes-Type I Past Surgical History: No Surgical History Additional Information: 6 cigarettes daily Alcohol Use: Occasionally Additional Information: last drank 1 shot of liquor last night Drug Use: Marijuana Adult General Chief Complaint Chief Complaint: BLOOD SUGAR PROBLEM HPI HPI Patient is a 22 year old male presented to ER today for evaluation of high blood sugar with nausea, vomiting, generalized weakness since last night. Patient is on Lantus. Patient checked his blood sugar this morning and it was too high to measure. Patient has history history of DKA in the past. Patient denies any abdominal pain, no chest pain. Patient said he maybe in DKA again. Review of Systems Review of Systems Constitutional: Denies fever or chills [] Eyes: Denies change in visual acuity, redness, or eye pain [] HENT: Denies nasal congestion or sore throat [] Respiratory: Denies cough or shortness of breath [] Cardiovascular: No additional information not addressed in HPI [] GI: positive for generalized weakness, nausea, vomiting, : Denies dysuria or hematuria [] Musculoskeletal: myalgia, joint pain. Integument: Denies rash or skin lesions [] Neurologic: Denies headache, focal weakness or sensory changes [] Endocrine: Denies polyuria or polydipsia [] All other systems were reviewed and found to be within normal limits, except as documented in this note. Current Medications Current Medications Current Medications Medications (Trade) Dose Ordered Sig/[facility] Start Time Stop Time Status Last Admin Dose Admin Insulin Human Regular (HumuLIN R VIAL) 10 unit 1X ONCE 02/03/18 09:00 02/03/18 09:45 DC Ondansetron HCl (Zofran) 8 mg 1X ONCE 02/03/18 08:15 02/03/18 08:16 DC 02/03/18 08:45 8 MG Sodium Chloride 1,000 ml @ 1,000 mls/hr 1X ONCE 02/03/18 10:45 02/03/18 11:44 DC 02/03/18 10:46 1,000 MLS/HR Allergies Allergies Allergies Coded Allergies Type Severity Reaction Last Updated Verified No Known Drug Allergies 08/25/16 No Physical Exam Physical Exam Constitutional: Well developed, well nourished, no acute distress, non-toxic appearance. [] HENT: Normocephalic, atraumatic, bilateral external ears normal, oropharynx moist, no oral exudates, nose normal. [] Eyes: PERRLA, EOMI, conjunctiva normal, no discharge. [] Neck: Normal range of motion, no tenderness, supple, no stridor. [] Cardiovascular:Heart rate regular rhythm, no murmur [] Lungs & Thorax: Bilateral breath sounds clear to auscultation [] Abdomen: Bowel sounds normal, soft, no tenderness, no masses, no pulsatile masses. [] Skin: Warm, dry, no erythema, no rash. [] Back: No tenderness, no CVA tenderness. [] Extremities: No tenderness, no cyanosis, no clubbing, ROM intact, no edema. [] Neurologic: Alert and oriented X 3, normal motor function, normal sensory function, no focal deficits noted. [] Psychologic: Affect normal, judgement normal, mood normal. [] Current Patient Data Vital Signs Vital Signs Date Time Temp Pulse Resp B/P (MAP) Pulse Ox O2 Delivery O2 Flow Rate FiO2 02/03/18 12:00 80 18 125/61 (82) 98 Room Air 02/03/18 07:56 98.0 98.0 Lab Values Laboratory Tests Test 02/03/18 08:30 02/03/18 08:35 02/03/18 09:25 02/03/18 10:18 White Blood Count 5.1 x10^3/uL (4.0-11.0) Red Blood Count 5.14 x10^6/uL (4.30-5.70) Hemoglobin 15.8 g/dL (13.0-17.5) Hematocrit 45.9 % (39.0-53.0) Mean Corpuscular Volume 89 fL (79-100) Mean Corpuscular Hemoglobin 31 pg (25-35) Mean Corpuscular Hemoglobin Concent 34 g/dL (31-37) Red Cell Distribution Width 13.0 % (11.5-14.5) Platelet Count 239 x10^3/uL (140-400) Neutrophils (%) (Auto) 58 % (31-73) Lymphocytes (%) (Auto) 32 % (24-48) Monocytes (%) (Auto) 8 % (0-9) Eosinophils (%) (Auto) 2 % (0-3) Basophils (%) (Auto) 1 % (0-3) Neutrophils # (Auto) 2.9 x10^3uL (1.8-7.7) Lymphocytes # (Auto) 1.6 x10^3/uL (1.0-4.8) Monocytes # (Auto) 0.4 x10^3/uL (0.0-1.1) Eosinophils # (Auto) 0.1 x10^3/uL (0.0-0.7) Basophils # (Auto) 0.0 x10^3/uL (0.0-0.2) Sodium Level 131 mmol/L (136-145) L Potassium Level 4.8 mmol/L (3.5-5.1) Chloride Level 92 mmol/L (98-107) L Carbon Dioxide Level 24 mmol/L (21-32) Anion Gap 15 (6-14) H Blood Urea Nitrogen 14 mg/dL (8-26) Creatinine 1.3 mg/dL (0.7-1.3) Estimated GFR (Cockcroft-Gault) 83.5 BUN/Creatinine Ratio 11 (6-20) Glucose Level 598 mg/dL (70-99) *H Calcium Level 9.7 mg/dL (8.5-10.1) Total Bilirubin 1.2 mg/dL (0.2-1.0) H Aspartate Amino Transferase (AST) 19 U/L (15-37) Alanine Aminotransferase (ALT) 23 U/L (16-63) Alkaline Phosphatase 105 U/L (46-116) Total Protein 7.8 g/dL (6.4-8.2) Albumin 3.7 g/dL (3.4-5.0) Albumin/Globulin Ratio 0.9 (1.0-1.7) L Lipase 169 U/L (73-393) Acetone Level Mod pos (NEG) Urine Collection Type Unknown Urine Color Yellow Urine Clarity Clear Urine pH 5.5 Urine Specific [place] >=1.030 Urine Protein Negative mg/dL (NEG-TRACE) Urine Glucose (UA) >=1000 mg/dL (NEG) Urine Ketones (Stick) 40 mg/dL (NEG) Urine Blood Negative (NEG) Urine Nitrite Negative (NEG) Urine Bilirubin Negative (NEG) Urine Urobilinogen Dipstick 0.2 mg/dL (0.2 mg/dL) Urine Leukocyte Esterase Negative (NEG) Urine RBC 0 /HPF (0-2) Urine WBC Occ /HPF (0-4) Urine Squamous Epithelial Cells Occ /LPF Urine Bacteria 0 /HPF (0-FEW) Urine Mucus Slight /LPF O2 Saturation 96 % (92-99) Arterial Blood pH 7.37 (7.35-7.45) Arterial Blood pCO2 at Patient Temp 44 mmHg (35-46) Arterial Blood pO2 at Patient Temp 79 mmHg (85-108) L Arterial Blood HCO3 25 mmol/L (21-28) Arterial Blood Base Excess -1 mmol/L (-3-3) FiO2 21.0 Glucose (Fingerstick) 433 mg/dL (70-99) H Test 02/03/18 11:45 Glucose (Fingerstick) 283 mg/dL (70-99) H Laboratory Tests 02/03/18 08:30 Laboratory Tests 02/03/18 08:30 EKG EKG [] Radiology/Procedures Radiology/Procedures [] Course & Med Decision Making Course & Med Decision Making Pertinent Labs and Imaging studies reviewed. (See chart for details) []Patient was given IV fluid, insulin in the ER, his blood sugar improved significantly. Patient was not in DKA. Patient will be discharged home, Dragon Disclaimer Dragon Disclaimer This electronic medical record was generated, in whole or in part, using a voice recognition dictation system. Departure Departure Impression: Primary Impression: Hyperglycemia Disposition: 01 HOME, SELF-CARE Condition: IMPROVED Referrals: UNKNOWN PCP NAME (PCP) FOLLOW UP WITH YOUR PCP THIS WEEK. Patient Instructions: Hyperglycemia ROSA RAVI DO Feb 03, 2018 08:18
--- NOTE | 2018-02-03 08:28 | EKG ---
[facility] [address] [place] [address] Test Date: 2018-02-03 Test Time: 08:18:31 Pat Name: TIMA SINGH Department: Room: Gender: M [employer]: : [id number] Requested By: ROSA RAVI Order Number: [id number] Reading MD: Wayne Johnson MD Measurements Intervals [place] Rate: 58 P: 38 VA: 134 QRS: 73 QRSD: 84 T: 34 QT: 360 QTc: 356 Interpretive Statements SINUS RHYTHM CONSIDER PERICARDITIS J-POINT ELEVATION Electronically Signed On 02-03-2018 11:04:27 CDT by Wayne Johnson MD
--- NOTE | 2018-02-03 08:35 | RAD ---
EXAM: Abdomen acute complete. HISTORY: Pain. COMPARISON: CT dated 08/25/2016. FINDINGS: A frontal view of the chest and frontal upright and supine views of the abdomen are obtained. There is no infiltrate, pleural effusion or pneumothorax. The heart is normal in size. There is a nonobstructive bowel gas pattern. There is no free air. IMPRESSION: 1. No acute pulmonary finding. 2. Nonobstructive bowel gas pattern. Electronically signed by: Lynn Bruner MD (02/03/2018 8:32 AM) [place] [id number]
[2018-02-03 08:41] LABS: BASO % 1 % (0-3); EOS # 0.1 x10^3/uL (0.0-0.7); EOS % 2 % (0-3); HEMATOCRIT 45.9 % (39.0-53.0); HEMOGLOBIN 15.8 g/dL (13.0-17.5); LYMPH # 1.6 x10^3/uL (1.0-4.8); LYMPH % 32 % (24-48); MEAN CORPUSCULAR HEMOGLOBIN 31 pg (25-35); MEAN CORPUSCULAR HGB CONC 34 g/dL (31-37); MEAN CORPUSCULAR VOLUME 89 fL (79-100); MONO # 0.4 x10^3/uL (0.0-1.1); MONO % 8 % (0-9); NEUT # 2.9 x10^3uL (1.8-7.7); NEUT % 58 % (31-73); PLATELET COUNT 239 x10^3/uL (140-400); RED BLOOD COUNT 5.14 x10^6/uL (4.30-5.70); WHITE BLOOD COUNT 5.1 x10^3/uL (4.0-11.0)
[2018-02-03 08:55] LABS: ACETONE MOD POS (NEG)
[2018-02-03 08:57] LABS: ALBUMIN 3.7 g/dL (3.4-5.0); ALBUMIN/GLOBULIN RATIO 0.9 (1.0-1.7); BLOOD UREA NITROGEN 14 mg/dL (8-26); BUN/CREATININE RATIO 11 (6-20); CALCIUM 9.7 mg/dL (8.5-10.1); CREATININE 1.3 mg/dL (0.7-1.3); TOTAL PROTEIN 7.8 g/dL (6.4-8.2)
[2018-02-03 08:57] LABS: BILIRUBIN,URINE NEGATIVE (NEG); CLARITY,URINE CLEAR; COLOR,URINE YELLOW; NITRITE,URINE NEGATIVE (NEG); PH,URINE 5.5; PROTEIN,URINE NEGATIVE (NEG-TRACE); UROBILINOGEN,URINE 0.2 mg/dL (0.2 mg/dL)
[2018-02-03 08:58] LABS: ALK PHOS 105 U/L (46-116); ALT (SGPT) 23 U/L (16-63); ANION GAP 15 (6-14); AST (SGOT) 19 U/L (15-37); CARBON DIOXIDE 24 mmol/L (21-32); CHLORIDE 92 mmol/L (98-107); GFR 83.5; LIPASE 169 U/L (73-393); POTASSIUM 4.8 mmol/L (3.5-5.1); SODIUM 131 mmol/L (136-145); TOTAL BILIRUBIN 1.2 mg/dL (0.2-1.0)
[2018-02-03] MEDS ORDERED: INSULIN REGULAR 100 UNIT/ML 3ML VIAL. IV ONE (09:00)
[2018-02-03 09:10] LABS: GLUCOSE 598 mg/dL (70-99)
[2018-02-03 09:14] LABS: BACTERIA,URINE 0 /HPF (0-FEW); RBC,URINE 0 /HPF (0-2); SQUAMOUS EPITHELIAL CELL,UR OCC /LPF; WBC,URINE OCC /HPF (0-4)
[2018-02-03 09:32] LABS: BASE EXCESS ABG -1 mmol/L (-3-3); HCO3 ABG 25 mmol/L (21-28); PCO2 ABG 44 mmHg (35-46); PO2 ABG 79 mmHg (85-108); SAT O2 ABG 96 % (92-99)
[2018-02-03] MEDS ORDERED: IV NORMAL SALINE 1000ML BAG 1,000 ML IV ONE (10:45)
[2018-02-03 12:00] VITALS: BP 125/61
== END 2018-02-03 12:15 | disposition home or self-care (01) ==
LOC: ER 07:48
DX: E10.65 Type 1 diabetes mellitus with hyperglycemia (principal); R11.2 Nausea with vomiting, unspecified; R53.1 Weakness; F17.210 Nicotine dependence, cigarettes, uncomplicated
CPT/HCPCS: 36415; 36600; 74022; 80053; 81001; 82010; 82805; 82962; 83690; 85025; 93005; 96361; 96365; 96366; 96375; 99285; J1815; J2405; J7030

== ENCOUNTER 2018-08-05 12:57 | Inpatient (IN) | payer SELFPAY ==
[2018-08-05] VITALS (11 sets, daily range): BP systolic 98–131; BP diastolic 58–84
[~2018-08-05] VITALS: Ht 172.7 cm; Wt 70.8 kg
[~2018-08-05 12:57] MED LIST changes: -HYDR-2758 PO; +HYDR-2761 PO
[2018-08-05] MEDS ORDERED: IV NORMAL SALINE 1000ML BAG 1,000 ML IV ONE ×2 (13:15→15:00)
[2018-08-05 13:28] LABS: CALCIUM 9.6 mg/dL (8.5-10.1); CREATININE 1.5 mg/dL (0.7-1.3); GFR 70.2; POTASSIUM 4.4 mmol/L (3.5-5.1)
--- NOTE | 2018-08-05 13:29 | RAD ---
Portable chest, 08/05/2018: HISTORY: Hyperglycemia Comparison is made to a study from 02/04/2018. The heart size is normal. No pulmonary infiltrate is seen. There is no evidence of pleural fluid. IMPRESSION: No acute cardiopulmonary abnormality is detected. Electronically signed by: Timothy Vidales MD (08/05/2018 1:26 PM) [facility]
--- NOTE | 2018-08-05 13:30 | PHYS DOC ---
Past Medical History Past Medical History: Diabetes-Type I Past Surgical History: No Surgical History Alcohol Use: Occasionally Drug Use: Marijuana Adult General Chief Complaint Chief Complaint: HYPERGLYCEMIA HPI HPI 23-year-old male presenting the emergency department today with elevated blood sugars. He is out of his insulin. He also has nausea and lower abdominal pain. The pain as a sharp shooting pain present for a few days. He's been out of insulin for multiple months. He denies any headache chest pain shortness of breath. Review of systems is negative for chest pain, shortness of breath, fevers chills headache neck stiffness. All other review of systems is negative unless otherwise noted in history of present illness. ED course: 23-year-old male presenting to the emergency room today with hyperglycemia. Afebrile with normal heart rate here in the emergency room. Patient is alert and well-appearing. Abdomen is soft and tender generally without a focus. No rebound tenderness or guarding. Blood sugar is elevated. Patient shows acidosis on ABG and chemistry panel. Patient is in diabetic ketoacidosis. We will give the patient IV fluids along with IV potassium. IV insulin bolus given here in the emergency department. I spoke with Dr. Lr who accepted the patient for admission. We will place the patient in the intensive care unit for treatment of DKA. Basic bridge orders placed. Review of Systems Review of Systems SEE ABOVE. Current Medications Current Medications Current Medications Medications (Trade) Dose Ordered Sig/Stephanie Start Time Stop Time Status Last Admin Dose Admin Info (CONTRAST GIVEN -- Rx MONITORING) 1 each PRN DAILY PRN 08/05/18 13:45 08/07/18 13:44 Iohexol (Omnipaque 300 Mg/ml) 75 ml 1X ONCE 08/05/18 13:45 08/05/18 13:46 DC 08/05/18 14:06 75 ML Sodium Chloride 1,000 ml @ 1,000 mls/hr 1X ONCE 08/05/18 13:15 08/05/18 14:14 DC 08/05/18 13:11 1,000 MLS/HR Allergies Allergies Allergies Coded Allergies Type Severity Reaction Last Updated Verified No Known Drug Allergies 08/25/16 No Physical Exam Physical Exam SEE ABOVE Constitutional: Well developed, well nourished, no acute distress, non-toxic appearance. HENT: Normocephalic, atraumatic, bilateral external ears normal, oropharynx moist, no oral exudates, nose normal. Eyes: PERRLA, EOMI, conjunctiva normal, no discharge. [] Neck: Normal range of motion, no tenderness, supple, no stridor. Cardiovascular:Heart rate regular rhythm, no murmur [] Lungs & Thorax: Bilateral breath sounds clear to auscultation Abdomen: Bowel sounds normal, soft, no masses, no pulsatile masses. as above Skin: Warm, dry, no erythema, no rash. [] Back: No tenderness, no CVA tenderness. [] Extremities: No tenderness, no cyanosis, no clubbing, ROM intact, no edema. Neurologic: Alert and oriented X 3, normal motor function, normal sensory function, no focal deficits noted. Psychologic: Affect normal, judgement normal, mood normal. [] Current Patient Data Vital Signs Vital Signs Date Time Temp Pulse Resp B/P (MAP) Pulse Ox O2 Delivery O2 Flow Rate FiO2 08/05/18 13:30 62 116/79 (91) 100 Room Air 08/05/18 13:00 97.8 20 97.8 Lab Values Laboratory Tests Test 08/05/18 13:05 08/05/18 13:06 08/05/18 13:36 Glucose (Fingerstick) 396 mg/dL (70-99) H White Blood Count 5.2 x10^3/uL (4.0-11.0) Red Blood Count 4.96 x10^6/uL (4.30-5.70) Hemoglobin 15.8 g/dL (13.0-17.5) Hematocrit 44.9 % (39.0-53.0) Mean Corpuscular Volume 91 fL (79-100) Mean Corpuscular Hemoglobin 32 pg (25-35) Mean Corpuscular Hemoglobin Concent 35 g/dL (31-37) Red Cell Distribution Width 13.8 % (11.5-14.5) Platelet Count 274 x10^3/uL (140-400) Neutrophils (%) (Auto) 43 % (31-73) Lymphocytes (%) (Auto) 49 % (24-48) H Monocytes (%) (Auto) 7 % (0-9) Eosinophils (%) (Auto) 1 % (0-3) Basophils (%) (Auto) 0 % (0-3) Neutrophils # (Auto) 2.2 x10^3uL (1.8-7.7) Lymphocytes # (Auto) 2.5 x10^3/uL (1.0-4.8) Monocytes # (Auto) 0.4 x10^3/uL (0.0-1.1) Eosinophils # (Auto) 0.0 x10^3/uL (0.0-0.7) Basophils # (Auto) 0.0 x10^3/uL (0.0-0.2) Sodium Level 130 mmol/L (136-145) L Potassium Level 4.4 mmol/L (3.5-5.1) Chloride Level 92 mmol/L (98-107) L Carbon Dioxide Level 16 mmol/L (21-32) L Anion Gap 22 (6-14) H Blood Urea Nitrogen 16 mg/dL (8-26) Creatinine 1.5 mg/dL (0.7-1.3) H Estimated GFR (Cockcroft-Gault) 70.2 Glucose Level 435 mg/dL (70-99) H Calcium Level 9.6 mg/dL (8.5-10.1) Total Bilirubin 1.3 mg/dL (0.2-1.0) H Direct Bilirubin 0.1 mg/dL (0.0-0.2) Aspartate Amino Transferase (AST) 12 U/L (15-37) L Alanine Aminotransferase (ALT) 22 U/L (16-63) Alkaline Phosphatase 83 U/L (46-116) Troponin I Quantitative < 0.017 ng/mL (0.000-0.055) WB-Ucl-L-Type Natriuretic Peptide 10 pg/mL (0-124) Total Protein 7.9 g/dL (6.4-8.2) Albumin 3.6 g/dL (3.4-5.0) Lipase 126 U/L (73-393) O2 Saturation 97 % (92-99) Arterial Blood pH 7.29 (7.35-7.45) L Arterial Blood pCO2 at Patient Temp 30 mmHg (35-46) L Arterial Blood pO2 at Patient Temp 103 mmHg (85-108) Arterial Blood HCO3 14 mmol/L (21-28) L Arterial Blood Base Excess -11 mmol/L (-3-3) L FiO2 21 Laboratory Tests 08/05/18 13:06 Laboratory Tests 08/05/18 13:06 EKG EKG [] Radiology/Procedures Radiology/Procedures [] Course & Med Decision Making Course & Med Decision Making Pertinent Labs and Imaging studies reviewed. (See chart for details) [] Dragon Disclaimer Dragon Disclaimer This electronic medical record was generated, in whole or in part, using a voice recognition dictation system. Departure Departure Impression: Primary Impression: DKA (diabetic ketoacidoses) Disposition: ADMITTED INPATIENT Admitting Physician: Rodrigo Porter Condition: IMPROVED Referrals: UNKNOWN PCP NAME (PCP) Critical Care Time Critical care time spent was 45 minutes exclusive of procedures. Time was spent evaluating the patient, ordering the administration of medications, reevaluating the patient, discussing with the admitting provider and documenting. HENRRY WILSON MD Aug 05, 2018 13:30
[2018-08-05 13:34] LABS: ALBUMIN 3.6 g/dL (3.4-5.0); BASO % 0 % (0-3); DIRECT BILIRUBIN 0.1 mg/dL (0.0-0.2); EOS % 1 % (0-3); HEMATOCRIT 44.9 % (39.0-53.0); HEMOGLOBIN 15.8 g/dL (13.0-17.5); LYMPH # 2.5 x10^3/uL (1.0-4.8); LYMPH % 49 % (24-48); MEAN CORPUSCULAR HEMOGLOBIN 32 pg (25-35); MEAN CORPUSCULAR HGB CONC 35 g/dL (31-37); MEAN CORPUSCULAR VOLUME 91 fL (79-100); MONO # 0.4 x10^3/uL (0.0-1.1); MONO % 7 % (0-9); NEUT # 2.2 x10^3uL (1.8-7.7); NEUT % 43 % (31-73); PLATELET COUNT 274 x10^3/uL (140-400); RED BLOOD COUNT 4.96 x10^6/uL (4.30-5.70); RED CELL DISTRIBUTION WIDTH 13.8 % (11.5-14.5); TOTAL BILIRUBIN 1.3 mg/dL (0.2-1.0); TOTAL PROTEIN 7.9 g/dL (6.4-8.2); WHITE BLOOD COUNT 5.2 x10^3/uL (4.0-11.0)
[2018-08-05 13:44] LABS: BASE EXCESS ABG -11 mmol/L (-3-3); HCO3 ABG 14 mmol/L (21-28); PCO2 ABG 30 mmHg (35-46); PO2 ABG 103 mmHg (85-108); SAT O2 ABG 97 % (92-99)
[2018-08-05 13:45] LABS: FIO2 ABG 21
[2018-08-05] MEDS ORDERED: CONTRAST GIVEN. MC PRN (13:45)
[2018-08-05] MEDS ORDERED: IOHEXOL 300 MG/ML 100ML VIAL. IV ONE (13:45)
[2018-08-05] MEDS ORDERED: INSULIN REGULAR 100 UNIT/ML 3ML VIAL. IV ONE (14:00)
[2018-08-05] MEDS ORDERED: SODIUM BICARB ADULT 8.4% 50 MEQ/50 ML DISP.SYRIN. IV ONE (14:00)
[2018-08-05] MEDS ORDERED: POTASSIUM CL 40MEQ IN 0.9%NACL 1,000 ML IV ONE (14:00)
--- NOTE | 2018-08-05 14:35 | RAD ---
CT ABD PELV W/ IV CONTRST ONLY Indication: Abdominal pain, diabetic ketoacidosis Technique: Postcontrast CT imaging was performed of the abdomen pelvis, multiplanar reconstruction images submitted. No oral contrast was given. One or more of the following individualized dose reduction techniques were utilized for this examination: 1. Automated exposure control 2. Adjustment of the mA and/or kV according to patient size 3. Use of iterative reconstruction technique. Comparison: August 25, 2016 Findings: There is no abnormality of the limited visualized lung bases. Both kidneys enhance, no hydronephrosis. Gallbladder is present without obvious intraluminal abnormality by CT. No focal abnormality is identified of the liver, spleen, pancreas. Evaluation of bowel is limited due to the lack of oral contrast and also due to the paucity of intra-abdominal and intrapelvic fat. However normal caliber appendix is visualized. There is some fluid in the small bowel such as in the right abdomen. There may be small bowel wall thickening in the left abdomen. There is retained stool variably in the colon. Urinary bladder is somewhat distended. There is no free fluid or free air. IMPRESSION: 1. There is no convincing CT evidence of acute appendicitis, limited evaluation of bowel without oral contrast. There may be some small bowel wall thickening such as in the left abdomen as could be seen with enteritis in the appropriate clinical setting. There is retained stool in segments of colon. 2. Urinary bladder is somewhat distended. Electronically signed by: Fredi Berry MD (08/05/2018 2:33 PM) [id number]
--- NOTE | 2018-08-05 14:46 | EKG ---
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
[2018-08-05] MEDS ORDERED: INSULIN REGULAR VIAL 150 UNIT in 0.9 % SODIUM CHLORIDE 150ML 150 ML IV PRN (16:00)
[2018-08-05 16:14] LABS: CALCIUM 8.6 mg/dL (8.5-10.1); CREATININE 1.3 mg/dL (0.7-1.3); GFR 82.8; POTASSIUM 4.2 mmol/L (3.5-5.1)
[2018-08-05 16:17] LABS: MAGNESIUM 1.5 mg/dL (1.8-2.4); PHOSPHORUS 2.4 mg/dL (2.6-4.7)
[2018-08-05 16:20] LABS: ALBUMIN 3.2 g/dL (3.4-5.0); ALBUMIN/GLOBULIN RATIO 0.9 (1.0-1.7); TOTAL BILIRUBIN 1.1 mg/dL (0.2-1.0); TOTAL PROTEIN 6.9 g/dL (6.4-8.2)
[2018-08-05] MEDS ORDERED: IV NORMAL SALINE 1000ML BAG 1,000 ML IV SCH (16:46)
--- NOTE | 2018-08-05 16:54 | PDOC1 ---
History and Physical Date of Admission Date of Admission DATE: 08/05/18 TIME: 16:54 Identification/Chief Complaint Chief Complaint seen in er ,23-year-old male presented to the emergency room today with hyperglycemia. Afebrile with normal heart rate here in the emergency room. Patient is alert. Abdomen is soft and non-tender . No rebound tenderness or guarding. Blood sugar is elevated 435, .note acidosis on ABG and chemistry panel. Patient is in diabetic ketoacidosis.given IV fluids along with IV potassium. IV insulin bolus given in the emergency department. place the patient in the intensive care unit for treatment of DKA. he states he does not have a PCP, Ran out of insulin 2 months ago Pt has type 1 DM, on lantus 24u qhs, 7u tid at home. Past Medical History Cardiovascular: Hyperlipidemia GI: No pertinent hx Heme/Onc: No pertinent hx Hepatobiliary: No pertinent hx Psych: Addictions ENT: No pertinent hx Endocrine: Diabetes Dermatology: No pertinent hx Past Surgical History Past Surgical History: No pertinent history Family History Family History: Hypertension Social History Smoke: <1 pack per day ALCOHOL: occassional Drugs: Marijuana Current Medications Current Medications Current Medications Sodium Chloride 1,000 ml @ 1,000 mls/hr 1X ONCE IV Last administered on at 13:11; Start 08/05/18 at 13:15; Stop 08/05/18 at 14:14; Status DC Iohexol (Omnipaque 300 Mg/ml) 75 ml 1X ONCE IV Last administered on 08/05/18at 14:06; Start 08/05/18 at 13:45; Stop 08/05/18 at 13:46; Status DC Info (CONTRAST GIVEN -- Rx MONITORING) 1 each PRN DAILY PRN MC SEE COMMENTS; Start 08/05/18 at 13:45; Stop 08/07/18 at 13:44 Potassium Chloride/Sodium Chloride 1,000 ml @ 75 mls/hr 1X ONCE IV Last administered on 08/05/18at 14:27; Start 08/05/18 at 14:00; Stop 08/06/18 at 03:19 Insulin Human Regular (HumuLIN R VIAL) 6 unit 1X ONCE IV Last administered on 08/05/18at 14:31; Start 08/05/18 at 14:00; Stop 08/05/18 at 14:01; Status DC Sodium Bicarbonate (Sodium Bicarb Adult 8.4% Syr) 50 meq 1X ONCE IV Last administered on 08/05/18at 14:26; Start 08/05/18 at 14:00; Stop 08/05/18 at 14:01 ; Status DC Sodium Chloride 1,000 ml @ 1,000 mls/hr 1X ONCE IV Last administered on at 14:30; Start 08/05/18 at 15:00; Stop 08/05/18 at 15:59; Status DC Insulin Human Regular 150 unit/ Sodium Chloride 151.5 ml @ 0 mls/hr CONT PRN PRN IV PER PROTOCOL; Start 08/05/18 at 16:00 Sodium Chloride 1,000 ml @ 250 mls/hr Q4H IV ; Start 08/05/18 at 16:46 Magnesium Sulfate/ Dextrose 100 ml @ 25 mls/hr 1X ONCE IV ; Start 08/05/18 at 17:00; Stop 08/05/18 at 20:59 Active Scripts Active Humalog (Insulin Lispro) 100 Unit/1 Ml Insuln.pen 8 Units SQ TIDAC 30 Days Lantus Solostar (Insulin Glargine,Hum.rec.anlog) 100 Unit/1 Ml Insuln.pen 25 Units SQ QHS 30 Days Bentyl (Dicyclomine Hcl) 10 Mg Capsule 1 Cap PO TID Zofran Odt (Ondansetron) 8 Mg Tab.rapdis 8 Mg PO BID PRN 5 Days Hydrocodone-Apap 5-325 (Hydrocodone Bit/Acetaminophen) 1 Each Tablet 1 Tab PO PRN Q6HRS PRN Allergies Allergies: Coded Allergies: No Known Drug Allergies (Unverified , 08/25/16) ROS Review of System 14 pt ros otherwise neg General: YES: Fatigue PSYCHOLOGICAL ROS: No: Anxiety, Behavioral Disorder, Concentration difficultie , Decreased libido, Depression, Disorientation, Hallucinations, Hostility, Irritablity, Memory difficulties, Mood Swings, Obsessive thoughts, Physical abuse, Sexual abuse, Sleep disturbances, Suicidal ideation, Other Eyes: Yes Blurry vision HEENT: No: Heacaches, Visual Changes, Hearing change, Nasal congestion, Nasal discharge, Oral lesions, Sinus pain, Sore Throat, Epistaxis, Sneezing, Snoring, Tinnitus, Vertigo, Vocal changes, Other ALLERGY AND IMMUNOLOGY: No: Hives, Insect Bite Sensitivity, Itchy/Watery Eyes, Nasal Congestion, Post Nasal Drip, Seasonal Allergies, Other Hematological and Lymphatic: No: Bleeding Problems, Blood Clots, Blood Transfusions, Brusing, Night Sweats, Pallor, Swollen Lymph Nodes, Other ENDOCRINE: No: Breast Changes, Galactorrhea, Hair Pattern Changes, Hot Flashes , Malaise/lethargy, Mood Swings, Palpitations, Polydipsia/polyuria, Skin Changes , Temperature Intolerance, Unexpected Weight Changes, Other Breast: No New/Changing Breast Lumps, No Nipple changes, No Nipple discharge, No Other Cardiovascular: No Chest Pain, No Palpitations, No Orthopnea, No Paroxysmal Noc. Dyspnea, No Edema, No Lt Headedness, No Other Gastrointestinal: Yes Nausea, Yes Vomiting Genitourinary: YES Frequency; No Dysuria, No Incontinence, No Hematuria, No Retention, No Discharge, No Urgency, No Pain, No Flank Pain, No Other, No , No , No , No , No , No , No Musculoskeletal: No Gait Disturbance, No Joint Pain, No Joint Stiffness, No Joint Swelling, No Muscle Pain, No Muscular Weakness, No Pain In:, No Swelling In:, No Other Neurological: Yes Dizziness; No Behavorial Changes, No Bowel/Bladder ControlChng, No Confusion, No Gait Disturbance, No Headaches, No Impaired Coord/balance, No Memory Loss, No Numbness/Tingling, No Seizures, No Speech Problems, No Tremors, No Visual Changes, No Weakness, No Other Skin: Yes Dry Skin; No Eczema, No Hair Changes, No Lumps, No Mole Changes, No Mottling, No Nail Changes, No Pruritus, No Rash, No Skin Lesion Changes, No Other, No Acne Physical Exam Physical Exam Constitutional: Well developed, well nourished,mild acute distress, non-toxic appearance. HENT: Normocephalic, atraumatic, bilateral external ears normal, oropharynx moist, no oral exudates, nose normal. Eyes: PERRLA, EOMI, conjunctiva normal, no discharge. [] Neck: Normal range of motion, no tenderness, supple, no stridor. Cardiovascular:Heart rate regular rhythm, no murmur [] Lungs & Thorax: Bilateral breath sounds clear to auscultation Abdomen: Bowel sounds normal, soft, no masses, no pulsatile masses. as above Skin: Warm, dry, no erythema, no rash. [] Back: No tenderness, no CVA tenderness. [] Extremities: No tenderness, no cyanosis, no clubbing, ROM intact, no edema. Neurologic: Alert and oriented X 3, normal motor function, normal sensory function, no focal deficits noted. Psychologic: Affect normal, judgement normal, mood normal. [] General: Alert, Oriented X3, Cooperative, mild distress HEENT: Atraumatic, PERRLA, EOMI Lungs: Clear to auscultation, Normal air movement Heart: S1S2, RRR, no thrills, no gallops, no murmurs Cardiovascular: S1, S2 Breasts: Not examined Abdomen: Normal bowel sounds, Soft, No hepatosplenomegaly Rectal Exam: not examined PELVIC: Examination not indicated Extremities: No clubbing, No cyanosis, No edema Skin: No breakdown Neuro: Normal speech, Strength at 5/5 X4 ext, Cranial nerves 3-12 NL Psych/Mental Status: Mental status NL, Mood NL Vitals Vitals Vital Signs Date Time Temp Pulse Resp B/P (MAP) Pulse Ox O2 Delivery O2 Flow Rate FiO2 08/05/18 16:00 Room Air 08/05/18 15:00 68 100 08/05/18 14:30 117/71 (86) 08/05/18 13:00 97.8 20 97.8 Labs Labs Laboratory Tests Test 08/05/18 13:05 08/05/18 13:06 08/05/18 13:36 08/05/18 14:25 Glucose (Fingerstick) 396 mg/dL (70-99) 373 mg/dL (70-99) White Blood Count 5.2 x10^3/uL (4.0-11.0) Red Blood Count 4.96 x10^6/uL (4.30-5.70) Hemoglobin 15.8 g/dL (13.0-17.5) Hematocrit 44.9 % (39.0-53.0) Mean Corpuscular Volume 91 fL (79-100) Mean Corpuscular Hemoglobin 32 pg (25-35) Mean Corpuscular Hemoglobin Concent 35 g/dL (31-37) Red Cell Distribution Width 13.8 % (11.5-14.5) Platelet Count 274 x10^3/uL (140-400) Neutrophils (%) (Auto) 43 % (31-73) Lymphocytes (%) (Auto) 49 % (24-48) Monocytes (%) (Auto) 7 % (0-9) Eosinophils (%) (Auto) 1 % (0-3) Basophils (%) (Auto) 0 % (0-3) Neutrophils # (Auto) 2.2 x10^3uL (1.8-7.7) Lymphocytes # (Auto) 2.5 x10^3/uL (1.0-4.8) Monocytes # (Auto) 0.4 x10^3/uL (0.0-1.1) Eosinophils # (Auto) 0.0 x10^3/uL (0.0-0.7) Basophils # (Auto) 0.0 x10^3/uL (0.0-0.2) Sodium Level 130 mmol/L (136-145) Potassium Level 4.4 mmol/L (3.5-5.1) Chloride Level 92 mmol/L (98-107) Carbon Dioxide Level 16 mmol/L (21-32) Anion Gap 22 (6-14) Blood Urea Nitrogen 16 mg/dL (8-26) Creatinine 1.5 mg/dL (0.7-1.3) Estimated GFR (Cockcroft-Gault) 70.2 Glucose Level 435 mg/dL (70-99) Calcium Level 9.6 mg/dL (8.5-10.1) Total Bilirubin 1.3 mg/dL (0.2-1.0) Direct Bilirubin 0.1 mg/dL (0.0-0.2) Aspartate Amino Transf (AST/SGOT) 12 U/L (15-37) Alanine Aminotransferase (ALT/SGPT) 22 U/L (16-63) Alkaline Phosphatase 83 U/L (46-116) Troponin I Quantitative < 0.017 ng/mL (0.000-0.055) MH-Yof-G-Type Natriuretic Peptide 10 pg/mL (0-124) Total Protein 7.9 g/dL (6.4-8.2) Albumin 3.6 g/dL (3.4-5.0) Lipase 126 U/L (73-393) O2 Saturation 97 % (92-99) Arterial Blood pH 7.29 (7.35-7.45) Arterial Blood pCO2 at Patient Temp 30 mmHg (35-46) Arterial Blood pO2 at Patient Temp 103 mmHg (85-108) Arterial Blood HCO3 14 mmol/L (21-28) Arterial Blood Base Excess -11 mmol/L (-3-3) FiO2 21 Test 08/05/18 15:40 08/05/18 16:00 Glucose (Fingerstick) 301 mg/dL (70-99) Sodium Level 135 mmol/L (136-145) Potassium Level 4.2 mmol/L (3.5-5.1) Chloride Level 97 mmol/L (98-107) Carbon Dioxide Level 21 mmol/L (21-32) Anion Gap 17 (6-14) Blood Urea Nitrogen 13 mg/dL (8-26) Creatinine 1.3 mg/dL (0.7-1.3) Estimated GFR (Cockcroft-Gault) 82.8 BUN/Creatinine Ratio 10 (6-20) Glucose Level 303 mg/dL (70-99) Calcium Level 8.6 mg/dL (8.5-10.1) Phosphorus Level 2.4 mg/dL (2.6-4.7) Magnesium Level 1.5 mg/dL (1.8-2.4) Total Bilirubin 1.1 mg/dL (0.2-1.0) Aspartate Amino Transf (AST/SGOT) 10 U/L (15-37) Alanine Aminotransferase (ALT/SGPT) 21 U/L (16-63) Alkaline Phosphatase 72 U/L (46-116) Total Protein 6.9 g/dL (6.4-8.2) Albumin 3.2 g/dL (3.4-5.0) Albumin/Globulin Ratio 0.9 (1.0-1.7) Laboratory Tests Test 08/05/18 13:05 08/05/18 13:06 08/05/18 13:36 08/05/18 14:25 Glucose (Fingerstick) 396 mg/dL (70-99) 373 mg/dL (70-99) White Blood Count 5.2 x10^3/uL (4.0-11.0) Red Blood Count 4.96 x10^6/uL (4.30-5.70) Hemoglobin 15.8 g/dL (13.0-17.5) Hematocrit 44.9 % (39.0-53.0) Mean Corpuscular Volume 91 fL (79-100) Mean Corpuscular Hemoglobin 32 pg (25-35) Mean Corpuscular Hemoglobin Concent 35 g/dL (31-37) Red Cell Distribution Width 13.8 % (11.5-14.5) Platelet Count 274 x10^3/uL (140-400) Neutrophils (%) (Auto) 43 % (31-73) Lymphocytes (%) (Auto) 49 % (24-48) Monocytes (%) (Auto) 7 % (0-9) Eosinophils (%) (Auto) 1 % (0-3) Basophils (%) (Auto) 0 % (0-3) Neutrophils # (Auto) 2.2 x10^3uL (1.8-7.7) Lymphocytes # (Auto) 2.5 x10^3/uL (1.0-4.8) Monocytes # (Auto) 0.4 x10^3/uL (0.0-1.1) Eosinophils # (Auto) 0.0 x10^3/uL (0.0-0.7) Basophils # (Auto) 0.0 x10^3/uL (0.0-0.2) Sodium Level 130 mmol/L (136-145) Potassium Level 4.4 mmol/L (3.5-5.1) Chloride Level 92 mmol/L (98-107) Carbon Dioxide Level 16 mmol/L (21-32) Anion Gap 22 (6-14) Blood Urea Nitrogen 16 mg/dL (8-26) Creatinine 1.5 mg/dL (0.7-1.3) Estimated GFR (Cockcroft-Gault) 70.2 Glucose Level 435 mg/dL (70-99) Calcium Level 9.6 mg/dL (8.5-10.1) Total Bilirubin 1.3 mg/dL (0.2-1.0) Direct Bilirubin 0.1 mg/dL (0.0-0.2) Aspartate Amino Transf (AST/SGOT) 12 U/L (15-37) Alanine Aminotransferase (ALT/SGPT) 22 U/L (16-63) Alkaline Phosphatase 83 U/L (46-116) Troponin I Quantitative < 0.017 ng/mL (0.000-0.055) GU-Asr-E-Type Natriuretic Peptide 10 pg/mL (0-124) Total Protein 7.9 g/dL (6.4-8.2) Albumin 3.6 g/dL (3.4-5.0) Lipase 126 U/L (73-393) O2 Saturation 97 % (92-99) Arterial Blood pH 7.29 (7.35-7.45) Arterial Blood pCO2 at Patient Temp 30 mmHg (35-46) Arterial Blood pO2 at Patient Temp 103 mmHg (85-108) Arterial Blood HCO3 14 mmol/L (21-28) Arterial Blood Base Excess -11 mmol/L (-3-3) FiO2 21 Test 08/05/18 15:40 08/05/18 16:00 Glucose (Fingerstick) 301 mg/dL (70-99) Sodium Level 135 mmol/L (136-145) Potassium Level 4.2 mmol/L (3.5-5.1) Chloride Level 97 mmol/L (98-107) Carbon Dioxide Level 21 mmol/L (21-32) Anion Gap 17 (6-14) Blood Urea Nitrogen 13 mg/dL (8-26) Creatinine 1.3 mg/dL (0.7-1.3) Estimated GFR (Cockcroft-Gault) 82.8 BUN/Creatinine Ratio 10 (6-20) Glucose Level 303 mg/dL (70-99) Calcium Level 8.6 mg/dL (8.5-10.1) Phosphorus Level 2.4 mg/dL (2.6-4.7) Magnesium Level 1.5 mg/dL (1.8-2.4) Total Bilirubin 1.1 mg/dL (0.2-1.0) Aspartate Amino Transf (AST/SGOT) 10 U/L (15-37) Alanine Aminotransferase (ALT/SGPT) 21 U/L (16-63) Alkaline Phosphatase 72 U/L (46-116) Total Protein 6.9 g/dL (6.4-8.2) Albumin 3.2 g/dL (3.4-5.0) Albumin/Globulin Ratio 0.9 (1.0-1.7) Images Images CT ABD PELV W/ IV CONTRST ONLY Indication: Abdominal pain, diabetic ketoacidosis Technique: Postcontrast CT imaging was performed of the abdomen pelvis, multiplanar reconstruction images submitted. No oral contrast was given. One or more of the following individualized dose reduction techniques were utilized for this examination: 1. Automated exposure control 2. Adjustment of the mA and/or kV according to patient size 3. Use of iterative reconstruction technique. Comparison: August 25, 2016 Findings: There is no abnormality of the limited visualized lung bases. Both kidneys enhance, no hydronephrosis. Gallbladder is present without obvious intraluminal abnormality by CT. No focal abnormality is identified of the liver, spleen, pancreas. Evaluation of bowel is limited due to the lack of oral contrast and also due to the paucity of intra-abdominal and intrapelvic fat. However normal caliber appendix is visualized. There is some fluid in the small bowel such as in the right abdomen. There may be small bowel wall thickening in the left abdomen. There is retained stool variably in the colon. Urinary bladder is somewhat distended. There is no free fluid or free air. IMPRESSION: 1. There is no convincing CT evidence of acute appendicitis, limited evaluation of bowel without oral contrast. There may be some small bowel wall thickening such as in the left abdomen as could be seen with enteritis in the appropriate clinical setting. There is retained stool in segments of colon. 2. Urinary bladder is somewhat distended. Electronically signed by: Ryann Middleton MD (08/05/2018 2:33 PM) [id number] DICTATED and SIGNED BY: RYANN MIDDLETON MD DATE: 08/05/18 1433 VTE Prophylaxis Ordered VTE Prophylaxis Devices: Yes VTE Pharmacological Prophylaxi: Yes Assessment/Plan Assessment/Plan Impression: DKA (diabetic ketoacidoses) THC ABUSE HYPOMAGNESEMIA plan icu bed insulin drip, DKA PROTOCOL IV MG 1 GM NOW DVT PROPHYLAXIS sq lovenox needs a PCP MAGD[facility] Education provided for need of smoking cessation diabetic teaching 36 MIN CC TIME JIE SALGUERO MD Aug 05, 2018 16:54
[2018-08-05] MEDS ORDERED: MAGNESIUM SULFATE 4GM 100 ML IV ONE (17:00)
[2018-08-05] MEDS: DICYCLOMINE HCL 10 MG CAPSULE PO SCH ×2 (17:00→20:02)
[2018-08-05] MEDS ORDERED: HYDROcodone/APAP 5/325MG 1 TAB TABLET PO PRN (17:15)
[2018-08-05] MEDS: ENOXAPARIN 40 MG/0.4 ML SYRINGE. SQ SCH ×3 (17:50→20:03)
--- NOTE | 2018-08-05 17:54 | NUR ---
Pt refusing Lovenox injection
[2018-08-05] MEDS ORDERED: POTASSIUM CL 20MEQ D5-0.9%NACL 1,000 ML IV ONE (18:15)
[2018-08-05 21:27] LABS: CALCIUM 8.4 mg/dL (8.5-10.1); CREATININE 1.1 mg/dL (0.7-1.3); GFR 100.4; MAGNESIUM 2.3 mg/dL (1.8-2.4); PHOSPHORUS 2.3 mg/dL (2.6-4.7); POTASSIUM 3.8 mmol/L (3.5-5.1)
--- NOTE | 2018-08-05 21:45 | NUR ---
Around 2099 pt was stating that he was hungry and was taking off his leads and try to unhook himself. He was stating that he was hungry and did not want to continue with the care unless we feed him despite being on an insulin drip. Dr. Lr was paged at [phone] and was informed of pt's wishes and that to continue with the DKA protocol and keep him NPO. Pt was informed of Dr. Joya wishes and he want to leave AMA. Dr. Lr was paged again [phone] to inform the provider that he is wanting to leave AMA. THe provider is aware and pt will sign AMA to leave knowing of the dangers and risk of doings. Pt was informed that he can always return if he needed to.
== END 2018-08-05 22:17 | disposition left against medical advice (07) | DRG 639 ==
LOC: ER 12:57 → 1 WEST ICU 13:55
PROVIDERS: ADMIT Family Medicine; ATTEND Family Medicine
DX: E10.10 Type 1 diabetes mellitus with ketoacidosis without coma (principal); E78.5 Hyperlipidemia, unspecified; E83.42 Hypomagnesemia; Z53.21 Procedure and treatment not carried out due to patient leaving prior to being seen by health care provider; F12.10 Cannabis abuse, uncomplicated; F17.210 Nicotine dependence, cigarettes, uncomplicated; Z79.4 Long term (current) use of insulin; Z82.49 Family history of ischemic heart disease and other diseases of the circulatory system; Z71.6 Tobacco abuse counseling
CPT/HCPCS: 36415; 36600; 71045; 74177; 80048; 80053; 80076; 82805; 82962; 83690; 83735; 83880; 84100; 84484; 85025; 93005; 96361; 96365; 96375; J1650; J1815; J3475; J3480; J7030; Q9967; 99291-25

== ENCOUNTER 2018-09-10 13:00 | Inpatient (IN) | payer SELFPAY ==
[~2018-09-10] VITALS: Ht 172.7 cm; Wt 73.0 kg
[2018-09-10] MEDS ORDERED: IV NORMAL SALINE 1000ML BAG 1,000 ML IV ONE ×2 (13:15)
[2018-09-10] MEDS ORDERED: FAMOTIDINE 20 MG/2 ML VIAL IVP ONE (13:15)
[2018-09-10] MEDS ORDERED: ONDANSETRON PF 4 MG/2 ML VIAL. IV ONE ×2 (13:15→13:45)
[2018-09-10 13:33] LABS: BASO % 1 % (0-3); EOS % 0 % (0-3); HEMATOCRIT 43.7 % (39.0-53.0); LYMPH # 1.7 x10^3/uL (1.0-4.8); LYMPH % 32 % (24-48); MEAN CORPUSCULAR HEMOGLOBIN 31 pg (25-35); MEAN CORPUSCULAR HGB CONC 34 g/dL (31-37); MEAN CORPUSCULAR VOLUME 91 fL (79-100); MONO # 0.3 x10^3/uL (0.0-1.1); MONO % 7 % (0-9); NEUT # 3.2 x10^3uL (1.8-7.7); NEUT % 61 % (31-73); PLATELET COUNT 305 x10^3/uL (140-400); RED CELL DISTRIBUTION WIDTH 13.4 % (11.5-14.5); WHITE BLOOD COUNT 5.3 x10^3/uL (4.0-11.0)
[2018-09-10 13:42] LABS: CALCIUM 9.7 mg/dL (8.5-10.1); CREATININE 1.2 mg/dL (0.7-1.3); GFR 90.8; POTASSIUM 4.5 mmol/L (3.5-5.1)
[2018-09-10 13:47] LABS: ALBUMIN 3.5 g/dL (3.4-5.0); ALBUMIN/GLOBULIN RATIO 0.9 (1.0-1.7); TOTAL BILIRUBIN 1.3 mg/dL (0.2-1.0); TOTAL PROTEIN 7.5 g/dL (6.4-8.2)
--- NOTE | 2018-09-10 13:54 | PHYS DOC ---
Past Medical History Past Medical History: Diabetes-Type I Past Surgical History: No Surgical History Alcohol Use: Occasionally Drug Use: Marijuana Adult General Chief Complaint Chief Complaint: NAUSEA/VOMITING/DIARRHA HPI HPI Patient is a 23 year old recommend a type 1 insulin-dependent diabetic who presents with epigastric pain nausea and vomiting. Symptoms began this morning after waking. Patient last took 26 units of Lantus last evening. His blood sugar this morning which read high. Patient then gave himself 17 units of NovoLog. Patient unable to eat or drink secondary to nausea. Denies chest pain shortness breath, fevers chills, sweats. Reports polyuria or polydipsia. Patient states he is recently admitted to this hospital for hyperglycemia and was out of his insulin for several weeks following discharge due to lack of insurance coverage. Patient was able to fill insulin 2 days ago and resumed his medications at that time. Denies drugs and alcohol. No other acute symptoms or complaints. Blood sugar 421 per EMS. [] Review of Systems Review of Systems ROS as per HPI All other systems were reviewed and found to be within normal limits, except as documented in this note. Current Medications Current Medications Current Medications Medications (Trade) Dose Ordered Sig/Stephanie Start Time Stop Time Status Last Admin Dose Admin Famotidine (Pepcid Vial) 20 mg 1X ONCE 09/10/18 13:15 09/10/18 13:16 DC 09/10/18 13:36 20 MG Ondansetron HCl (Zofran) 4 mg 1X ONCE 09/10/18 13:45 09/10/18 13:46 DC 09/10/18 13:47 4 MG Sodium Chloride 1,000 ml @ 1,000 mls/hr 1X ONCE 09/10/18 13:15 09/10/18 14:14 DC 09/10/18 14:39 1,000 MLS/HR Allergies Allergies Allergies Coded Allergies Type Severity Reaction Last Updated Verified No Known Drug Allergies 08/25/16 No Physical Exam Physical Exam Constitutional: Well developed, well nourished, no acute distress, non-toxic a ppearance. [] HENT: Normocephalic, atraumatic, bilateral external ears normal, oropharynx moist, nose normal. [] Eyes: PERRLA, EOMI, conjunctiva normal, no discharge. [] Neck: Normal range of motion, no tenderness, supple, no stridor. [] Cardiovascular:Heart rate regular rhythm, no murmur [] Lungs & Thorax: Bilateral breath sounds clear to auscultation. [] Abdomen: Bowel sounds normal, soft, no tenderness, no masses. [] Skin: Warm, dry, no erythema. [] Back: No tenderness. [] Extremities: No tenderness, no edema. [] Neurologic: Alert and oriented X 3, normal motor function, normal sensory function, no focal deficits noted. [] Psychologic: Affect normal, judgement normal, mood normal. [] Current Patient Data Vital Signs Vital Signs Date Time Temp Pulse Resp B/P (MAP) Pulse Ox O2 Delivery O2 Flow Rate FiO2 09/10/18 13:05 98.5 66 20 116/70 (85) 98 Room Air 98.5 Lab Values Laboratory Tests Test 09/10/18 13:20 09/10/18 13:55 09/10/18 14:29 White Blood Count 5.3 x10^3/uL (4.0-11.0) Red Blood Count 4.80 x10^6/uL (4.30-5.70) Hemoglobin 15.0 g/dL (13.0-17.5) Hematocrit 43.7 % (39.0-53.0) Mean Corpuscular Volume 91 fL (79-100) Mean Corpuscular Hemoglobin 31 pg (25-35) Mean Corpuscular Hemoglobin Concent 34 g/dL (31-37) Red Cell Distribution Width 13.4 % (11.5-14.5) Platelet Count 305 x10^3/uL (140-400) Neutrophils (%) (Auto) 61 % (31-73) Lymphocytes (%) (Auto) 32 % (24-48) Monocytes (%) (Auto) 7 % (0-9) Eosinophils (%) (Auto) 0 % (0-3) Basophils (%) (Auto) 1 % (0-3) Neutrophils # (Auto) 3.2 x10^3uL (1.8-7.7) Lymphocytes # (Auto) 1.7 x10^3/uL (1.0-4.8) Monocytes # (Auto) 0.3 x10^3/uL (0.0-1.1) Eosinophils # (Auto) 0.0 x10^3/uL (0.0-0.7) Basophils # (Auto) 0.0 x10^3/uL (0.0-0.2) Sodium Level 130 mmol/L (136-145) L Potassium Level 4.5 mmol/L (3.5-5.1) Chloride Level 92 mmol/L (98-107) L Carbon Dioxide Level 23 mmol/L (21-32) Anion Gap 15 (6-14) H Blood Urea Nitrogen 13 mg/dL (8-26) Creatinine 1.2 mg/dL (0.7-1.3) Estimated GFR (Cockcroft-Gault) 90.8 BUN/Creatinine Ratio 11 (6-20) Glucose Level 478 mg/dL (70-99) H Calcium Level 9.7 mg/dL (8.5-10.1) Total Bilirubin 1.3 mg/dL (0.2-1.0) H Aspartate Amino Transferase (AST) 23 U/L (15-37) Alanine Aminotransferase (ALT) 30 U/L (16-63) Alkaline Phosphatase 105 U/L (46-116) Total Protein 7.5 g/dL (6.4-8.2) Albumin 3.5 g/dL (3.4-5.0) Albumin/Globulin Ratio 0.9 (1.0-1.7) L Lipase 114 U/L (73-393) Ethyl Alcohol Level < 10 mg/dL (0-10) Acetone Level Sm pos (NEG) O2 Saturation 90 % (92-99) L Arterial Blood pH 7.40 (7.35-7.45) Arterial Blood pCO2 at Patient Temp 30 mmHg (35-46) L Arterial Blood pO2 at Patient Temp 58 mmHg (85-108) L Arterial Blood HCO3 18 mmol/L (21-28) L Arterial Blood Base Excess -6 mmol/L (-3-3) L FiO2 21 Glucose (Fingerstick) 373 mg/dL (70-99) H Laboratory Tests 09/10/18 13:20 Laboratory Tests 09/10/18 13:20 EKG EKG [] Radiology/Procedures Radiology/Procedures [] Course & Med Decision Making Course & Med Decision Making Pertinent Labs and Imaging studies reviewed. (See chart for details) [Persistent epigastric pain nausea with hyperglycemia. IV fluids, insulin given. Small ketones present. Patient remains symptomatic as per candidate to send home. Will admit to the hospitalist service. Dragon Disclaimer Dragon Disclaimer This electronic medical record was generated, in whole or in part, using a voice recognition dictation system. Departure Departure Impression: Primary Impression: Hyperglycemia Additional Impressions: Nausea & vomiting Insulin dependent diabetes mellitus Disposition: 09 ADMITTED INPATIENT Admitting Physician: Gena Phillips Condition: STABLE Referrals: NO PCP (PCP) Problem Qualifiers KOREY WEAVER DO September 10, 2018 13:53
[2018-09-10 14:00] LABS: BASE EXCESS ABG -6 mmol/L (-3-3); HCO3 ABG 18 mmol/L (21-28); PCO2 ABG 30 mmHg (35-46); PO2 ABG 58 mmHg (85-108); SAT O2 ABG 90 % (92-99)
[2018-09-10 14:02] LABS: FIO2 ABG 21
--- NOTE | 2018-09-10 14:04 | RAD ---
CHEST AP ONLY Clinical indications: Chest pain. COMPARISON: August 05, 2018. Findings: No acute lung infiltrate or pleural effusion or pulmonary edema or lung mass or pneumothorax is seen. The heart size, pulmonary vasculature, mediastinum and both adilia are unremarkable. Impression: No acute radiographic abnormality is seen. Electronically signed by: Charles Bowden MD (09/10/2018 2:01 PM) [facility]
[2018-09-10 14:55] LABS: BARBITURATES NEG (NEG); BENZODIAZEPINES NEG (NEG); CANNABINOIDS POS (NEG); COCAINE NEG (NEG); METHADONE NEG (NEG); OPIATES NEG (NEG); PHENCYCLIDINE NEG (NEG)
[2018-09-10 14:56] LABS: AMPHETAMINE/METHAMPHETAMINE NEG (NEG)
[2018-09-10] MEDS ORDERED: DEXTROSE 50% 25 GM / 50ML DISP.SYRIN. IV PRN (15:00)
[2018-09-10] MEDS ORDERED: INSULIN REGULAR 100 UNIT/ML 3ML VIAL. SQ ONE (15:00)
--- NOTE | 2018-09-10 17:13 | PDOC1 ---
History and Physical Date of Admission: Date of Admission DATE: 09/10/18 TIME: 17:10 Chief Complaint: Problems: (1) DKA (diabetic ketoacidoses) (2) Insulin dependent diabetes mellitus (3) Hyperglycemia (4) Nausea & vomiting Chief Complain: Abdominal pain nausea vomiting History of Present Illness: HPI: Patient is a young male with type 1 diabetes who is noncompliant with his insulin I don't think he can afford the insulin He was in the hospital recently with similar problems when he was in DKA was d ischarged with insulin prescriptions He apparently didn't get them filled until 2 days ago Now is basically in DKA Presented with abdominal pain nausea vomiting appears quite ill His anion gap of 15 [place] cusses and was 500 describes her symptoms as agonizing Rated 9 out of 10 I discussed the case with ER physician were going to with patient give him IV insulin and fluids Past Medical/Surgical History: PMH/PSH: Past Medical History: Diabetes-Type I Past Surgical History: No Surgical History Alcohol Use: Occasionally Drug Use: Marijuana Severe noncompliance Allergies: Allergies: Coded Allergies: No Known Drug Allergies (Unverified , 08/25/16) Family History: Family History: Diabetes Social History: Social Hisoty: He doesn't drink smoke or take drugs Current Medications: Current Medications Current Medications Sodium Chloride 1,000 ml @ 1,000 mls/hr 1X ONCE IV Last administered on 09/10/18at 13:35; Start 09/10/18 at 13:15; Stop 09/10/18 at 14:14; Status DC Sodium Chloride 1,000 ml @ 1,000 mls/hr 1X ONCE IV Last administered on 09/10/18at 14:39; Start 09/10/18 at 13:15; Stop 09/10/18 at 14:14; Status DC Famotidine (Pepcid Vial) 20 mg 1X ONCE IVP Last administered on 09/10/18at 13:36; Start 09/10/18 at 13:15; Stop 09/10/18 at 13:16; Status DC Ondansetron HCl (Zofran) 8 mg 1X ONCE IV Last administered on 09/10/18at 13:36; Start 09/10/18 at 13:15; Stop 09/10/18 at 13:16; Status DC Ondansetron HCl (Zofran) 4 mg 1X ONCE IV Last administered on 09/10/18at 13:47; Start 09/10/18 at 13:45; Stop 09/10/18 at 13:46; Status DC Ondansetron HCl (Zofran) 4 mg PRN Q8HRS PRN IV NAUSEA/VOMITING; Start 09/10/18 at 15:00; Stop 09/11/18 at 14:59 Insulin Human Lispro (HumaLOG) 0-7 UNITS TIDWMEALS SQ ; Start 09/10/18 at 17:00 Dextrose (Dextrose 50%-Water Syringe) 12.5 gm PRN Q15MIN PRN IV SEE COMMENTS; Start 09/10/18 at 15:00 Famotidine (Pepcid Vial) 20 mg Q12HR IVP ; Start 09/10/18 at 21:00 Insulin Human Regular (HumuLIN R VIAL) 6 unit 1X ONCE SQ Last administered on 09/10/18at 15:20; Start 09/10/18 at 15:00; Stop 09/10/18 at 15:01; Status DC Active Scripts Active ROS: Review of Systems Review of System REVIEW OF SYSTEMS: GENERAL: Denies weakness SKIN: No bruising, hair changes or rashes. EYES: No blurred, double or loss of vision. NOSE AND THROAT: No history of nosebleeds, hoarseness or sore throat. HEART: No history of palpitations, chest pain or shortness of breath on exertion. LUNGS: Denies cough, hemoptysis, wheezing or shortness of breath. GASTROINTESTINAL: Complains of severe abdominal pain nausea vomiting GENITOURINARY: No history of frequency, urgency, hesitancy or nocturia. NEUROLOGIC: Denies history of numbness, tingling, tremor or weakness. PSYCHIATRIC: No history of panic, anxiety or depression. ENDOCRINE: No history of heat or cold intolerance, polyuria or polydipsia. EXTREMITIES: Denies muscle weakness, joint pain, pain on walking or stiffness. Physical Exam: Vital Signs: Vital Signs Date Time Temp Pulse Resp B/P (MAP) Pulse Ox O2 Delivery O2 Flow Rate FiO2 09/10/18 16:30 56 20 139/88 (105) 99 Room Air 09/10/18 13:05 98.5 98.5 Physcial Exam: GEN.: He is in the ER appears very sick is vomiting as I walked in the room HEENT: Head is normocephalic, atraumatic NECK: Supple, no JVD LUNGS: Clear to auscultation without rhonchi or wheezing HEART: RRR, S1, S2 present. Peripheral pulses intact ABDOMEN: Abdomen is very tender with decreased bowel sounds EXTREMITIES: Without any cyanosis, clubbing, or edema. Pedal pulses intact NEUROLOGIC: Normal speech, normal tone. A&O x 3 PSYCHIATRIC: He is depressed SKIN: No ulcerations or rashes VASCULAR: Good capillary refill Labs: Labs: Laboratory Tests Test 09/10/18 13:20 09/10/18 13:55 09/10/18 14:29 09/10/18 14:34 White Blood Count 5.3 x10^3/uL (4.0-11.0) Red Blood Count 4.80 x10^6/uL (4.30-5.70) Hemoglobin 15.0 g/dL (13.0-17.5) Hematocrit 43.7 % (39.0-53.0) Mean Corpuscular Volume 91 fL (79-100) Mean Corpuscular Hemoglobin 31 pg (25-35) Mean Corpuscular Hemoglobin Concent 34 g/dL (31-37) Red Cell Distribution Width 13.4 % (11.5-14.5) Platelet Count 305 x10^3/uL (140-400) Neutrophils (%) (Auto) 61 % (31-73) Lymphocytes (%) (Auto) 32 % (24-48) Monocytes (%) (Auto) 7 % (0-9) Eosinophils (%) (Auto) 0 % (0-3) Basophils (%) (Auto) 1 % (0-3) Neutrophils # (Auto) 3.2 x10^3uL (1.8-7.7) Lymphocytes # (Auto) 1.7 x10^3/uL (1.0-4.8) Monocytes # (Auto) 0.3 x10^3/uL (0.0-1.1) Eosinophils # (Auto) 0.0 x10^3/uL (0.0-0.7) Basophils # (Auto) 0.0 x10^3/uL (0.0-0.2) Sodium Level 130 mmol/L (136-145) Potassium Level 4.5 mmol/L (3.5-5.1) Chloride Level 92 mmol/L (98-107) Carbon Dioxide Level 23 mmol/L (21-32) Anion Gap 15 (6-14) Blood Urea Nitrogen 13 mg/dL (8-26) Creatinine 1.2 mg/dL (0.7-1.3) Estimated GFR (Cockcroft-Gault) 90.8 BUN/Creatinine Ratio 11 (6-20) Glucose Level 478 mg/dL (70-99) Calcium Level 9.7 mg/dL (8.5-10.1) Total Bilirubin 1.3 mg/dL (0.2-1.0) Aspartate Amino Transf (AST/SGOT) 23 U/L (15-37) Alanine Aminotransferase (ALT/SGPT) 30 U/L (16-63) Alkaline Phosphatase 105 U/L (46-116) Total Protein 7.5 g/dL (6.4-8.2) Albumin 3.5 g/dL (3.4-5.0) Albumin/Globulin Ratio 0.9 (1.0-1.7) Lipase 114 U/L (73-393) Ethyl Alcohol Level < 10 mg/dL (0-10) Acetone Level Sm pos (NEG) O2 Saturation 90 % (92-99) Arterial Blood pH 7.40 (7.35-7.45) Arterial Blood pCO2 at Patient Temp 30 mmHg (35-46) Arterial Blood pO2 at Patient Temp 58 mmHg (85-108) Arterial Blood HCO3 18 mmol/L (21-28) Arterial Blood Base Excess -6 mmol/L (-3-3) FiO2 21 Glucose (Fingerstick) 373 mg/dL (70-99) Urine Opiates Screen Neg (NEG) Urine Methadone Screen Neg (NEG) Urine Barbiturates Neg (NEG) Urine Phencyclidine Screen Neg (NEG) Urine Amphetamine/Methamphetamine Neg (NEG) Urine Benzodiazepines Screen Neg (NEG) Urine Cocaine Screen Neg (NEG) Urine Cannabinoids Screen Pos (NEG) Urine Ethyl Alcohol Neg (NEG) Laboratory Tests Test 09/10/18 13:20 09/10/18 13:55 09/10/18 14:29 09/10/18 14:34 White Blood Count 5.3 x10^3/uL (4.0-11.0) Red Blood Count 4.80 x10^6/uL (4.30-5.70) Hemoglobin 15.0 g/dL (13.0-17.5) Hematocrit 43.7 % (39.0-53.0) Mean Corpuscular Volume 91 fL (79-100) Mean Corpuscular Hemoglobin 31 pg (25-35) Mean Corpuscular Hemoglobin Concent 34 g/dL (31-37) Red Cell Distribution Width 13.4 % (11.5-14.5) Platelet Count 305 x10^3/uL (140-400) Neutrophils (%) (Auto) 61 % (31-73) Lymphocytes (%) (Auto) 32 % (24-48) Monocytes (%) (Auto) 7 % (0-9) Eosinophils (%) (Auto) 0 % (0-3) Basophils (%) (Auto) 1 % (0-3) Neutrophils # (Auto) 3.2 x10^3uL (1.8-7.7) Lymphocytes # (Auto) 1.7 x10^3/uL (1.0-4.8) Monocytes # (Auto) 0.3 x10^3/uL (0.0-1.1) Eosinophils # (Auto) 0.0 x10^3/uL (0.0-0.7) Basophils # (Auto) 0.0 x10^3/uL (0.0-0.2) Sodium Level 130 mmol/L (136-145) Potassium Level 4.5 mmol/L (3.5-5.1) Chloride Level 92 mmol/L (98-107) Carbon Dioxide Level 23 mmol/L (21-32) Anion Gap 15 (6-14) Blood Urea Nitrogen 13 mg/dL (8-26) Creatinine 1.2 mg/dL (0.7-1.3) Estimated GFR (Cockcroft-Gault) 90.8 BUN/Creatinine Ratio 11 (6-20) Glucose Level 478 mg/dL (70-99) Calcium Level 9.7 mg/dL (8.5-10.1) Total Bilirubin 1.3 mg/dL (0.2-1.0) Aspartate Amino Transf (AST/SGOT) 23 U/L (15-37) Alanine Aminotransferase (ALT/SGPT) 30 U/L (16-63) Alkaline Phosphatase 105 U/L (46-116) Total Protein 7.5 g/dL (6.4-8.2) Albumin 3.5 g/dL (3.4-5.0) Albumin/Globulin Ratio 0.9 (1.0-1.7) Lipase 114 U/L (73-393) Ethyl Alcohol Level < 10 mg/dL (0-10) Acetone Level Sm pos (NEG) O2 Saturation 90 % (92-99) Arterial Blood pH 7.40 (7.35-7.45) Arterial Blood pCO2 at Patient Temp 30 mmHg (35-46) Arterial Blood pO2 at Patient Temp 58 mmHg (85-108) Arterial Blood HCO3 18 mmol/L (21-28) Arterial Blood Base Excess -6 mmol/L (-3-3) FiO2 21 Glucose (Fingerstick) 373 mg/dL (70-99) Urine Opiates Screen Neg (NEG) Urine Methadone Screen Neg (NEG) Urine Barbiturates Neg (NEG) Urine Phencyclidine Screen Neg (NEG) Urine Amphetamine/Methamphetamine Neg (NEG) Urine Benzodiazepines Screen Neg (NEG) Urine Cocaine Screen Neg (NEG) Urine Cannabinoids Screen Pos (NEG) Urine Ethyl Alcohol Neg (NEG) Images: Images Chest x-rays normal Assessment/Plan Assessment/Plan Assessment plan DKA Plan Insulin Fluids Home meds DVT prophylaxis Cardiac monitoring Full code Diabetic education Total time 31 minutes JU TIAN III DO September 10, 2018 17:13
[2018-09-10 19:10] VITALS: BP 150/100
[2018-09-10] MEDS: FAMOTIDINE 20 MG/2 ML VIAL IVP SCH (20:12)
[2018-09-10] MEDS: ONDANSETRON PF 4 MG/2 ML VIAL. IV PRN (20:16)
[2018-09-10] MEDS: INSULIN LISPRO 300 UNITS/3 ML INSULN.PEN. SQ SCH (20:20)
[2018-09-10 23:28] VITALS: BP 128/104
[2018-09-11 03:45] VITALS: BP 133/74
[2018-09-11] MEDS: ONDANSETRON PF 4 MG/2 ML VIAL. IV PRN ×2 (04:24→17:32)
[2018-09-11 07:44] VITALS: BP 127/55
[2018-09-11] MEDS: FAMOTIDINE 20 MG/2 ML VIAL IVP SCH (08:07)
[2018-09-11] MEDS: INSULIN LISPRO 300 UNITS/3 ML INSULN.PEN. SQ SCH ×5 (08:12→17:40)
[2018-09-11] MEDS ORDERED: ACETAMINOPHEN/CODEINE 300/30MG TABLET. PO PRN (08:45)
[2018-09-11] MEDS ORDERED: DEXTROSE 50% 25 GM / 50ML DISP.SYRIN. IV PRN (08:45)
[2018-09-11] MEDS ORDERED: IBUPROFEN 200 MG TABLET. PO PRN (08:45)
[2018-09-11] MEDS ORDERED: ACETAMINOPHEN 500 MG TABLET PO ONE (09:15)
[2018-09-11] MEDS: IV NORMAL SALINE 1000ML BAG 1,000 ML IV SCH ×2 (10:01→17:29)
--- NOTE | 2018-09-11 10:53 | PDOC ---
PROGRESS NOTES Chief Complaint Chief Complaint DKA with no coma Nausea, emesis SIRS non-infections with no organ dysfunction Positive cannabinoids in the system Anion gap acidosis secondary to DKA History of Present Illness History of Present Illness He is still not feeling well, not interested in food Multiple emesis today per RN Anion gap is still elevated 15 with blood sugars in the 200s He tells me his regimen is 8 units NovoLog meal times and 24 units daily at bedtime Plan: Resume insulin home regimen Start IV fluids 150 mL an hour at least Liquid diet then ADA T Hemoglobin A1c check If blood sugar and gap is closed and numbers much better and still with symptoms, might consider GET-has never had that done before Vitals Vitals Vital Signs Date Time Temp Pulse Resp B/P (MAP) Pulse Ox O2 Delivery O2 Flow Rate FiO2 09/11/18 08:18 Room Air 09/11/18 07:44 98.0 91 19 127/55 (79) 99 98.0 Physical Exam General: No acute distress, Other (looks comfortable, looks weak) Heart: Regular rate, Other (sinus tachycardia) Lungs: Clear Abdomen: Normal bowel sounds, Soft, No hepatosplenomegaly, Other (mild tenderness willy Umbilical palpation) Extremities: No clubbing, No cyanosis, No edema, Normal pulses Skin: No rashes, No breakdown, No significant lesion Labs LABS Laboratory Tests Test 09/10/18 13:20 09/10/18 13:55 09/10/18 14:29 09/10/18 14:34 White Blood Count 5.3 x10^3/uL (4.0-11.0) Red Blood Count 4.80 x10^6/uL (4.30-5.70) Hemoglobin 15.0 g/dL (13.0-17.5) Hematocrit 43.7 % (39.0-53.0) Mean Corpuscular Volume 91 fL (79-100) Mean Corpuscular Hemoglobin 31 pg (25-35) Mean Corpuscular Hemoglobin Concent 34 g/dL (31-37) Red Cell Distribution Width 13.4 % (11.5-14.5) Platelet Count 305 x10^3/uL (140-400) Neutrophils (%) (Auto) 61 % (31-73) Lymphocytes (%) (Auto) 32 % (24-48) Monocytes (%) (Auto) 7 % (0-9) Eosinophils (%) (Auto) 0 % (0-3) Basophils (%) (Auto) 1 % (0-3) Neutrophils # (Auto) 3.2 x10^3uL (1.8-7.7) Lymphocytes # (Auto) 1.7 x10^3/uL (1.0-4.8) Monocytes # (Auto) 0.3 x10^3/uL (0.0-1.1) Eosinophils # (Auto) 0.0 x10^3/uL (0.0-0.7) Basophils # (Auto) 0.0 x10^3/uL (0.0-0.2) Sodium Level 130 mmol/L (136-145) Potassium Level 4.5 mmol/L (3.5-5.1) Chloride Level 92 mmol/L (98-107) Carbon Dioxide Level 23 mmol/L (21-32) Anion Gap 15 (6-14) Blood Urea Nitrogen 13 mg/dL (8-26) Creatinine 1.2 mg/dL (0.7-1.3) Estimated GFR (Cockcroft-Gault) 90.8 BUN/Creatinine Ratio 11 (6-20) Glucose Level 478 mg/dL (70-99) Calcium Level 9.7 mg/dL (8.5-10.1) Total Bilirubin 1.3 mg/dL (0.2-1.0) Aspartate Amino Transf (AST/SGOT) 23 U/L (15-37) Alanine Aminotransferase (ALT/SGPT) 30 U/L (16-63) Alkaline Phosphatase 105 U/L (46-116) Total Protein 7.5 g/dL (6.4-8.2) Albumin 3.5 g/dL (3.4-5.0) Albumin/Globulin Ratio 0.9 (1.0-1.7) Lipase 114 U/L (73-393) Ethyl Alcohol Level < 10 mg/dL (0-10) Acetone Level Sm pos (NEG) O2 Saturation 90 % (92-99) Arterial Blood pH 7.40 (7.35-7.45) Arterial Blood pCO2 at Patient Temp 30 mmHg (35-46) Arterial Blood pO2 at Patient Temp 58 mmHg (85-108) Arterial Blood HCO3 18 mmol/L (21-28) Arterial Blood Base Excess -6 mmol/L (-3-3) FiO2 21 Glucose (Fingerstick) 373 mg/dL (70-99) Urine Opiates Screen Neg (NEG) Urine Methadone Screen Neg (NEG) Urine Barbiturates Neg (NEG) Urine Phencyclidine Screen Neg (NEG) Urine Amphetamine/Methamphetamine Neg (NEG) Urine Benzodiazepines Screen Neg (NEG) Urine Cocaine Screen Neg (NEG) Urine Cannabinoids Screen Pos (NEG) Urine Ethyl Alcohol Neg (NEG) Test 09/10/18 18:36 09/10/18 19:06 09/11/18 07:40 Glucose (Fingerstick) 256 mg/dL (70-99) 313 mg/dL (70-99) 274 mg/dL (70-99) Review of Systems Review of Systems Nausea, epigastric pain/abdominal pain, otherwise rest of ROS 14 point negative Assessment and Plan Assessmemt and Plan Problems Medical Problems: (1) Hyperglycemia Status: Acute (2) Insulin dependent diabetes mellitus Status: Acute (3) Nausea & vomiting Status: Acute Comment Review of Relevant I have reviewed the following items grupo (where applicable) has been applied. Labs Laboratory Tests Test 09/10/18 13:20 09/10/18 13:55 09/10/18 14:29 09/10/18 14:34 White Blood Count 5.3 x10^3/uL (4.0-11.0) Red Blood Count 4.80 x10^6/uL (4.30-5.70) Hemoglobin 15.0 g/dL (13.0-17.5) Hematocrit 43.7 % (39.0-53.0) Mean Corpuscular Volume 91 fL (79-100) Mean Corpuscular Hemoglobin 31 pg (25-35) Mean Corpuscular Hemoglobin Concent 34 g/dL (31-37) Red Cell Distribution Width 13.4 % (11.5-14.5) Platelet Count 305 x10^3/uL (140-400) Neutrophils (%) (Auto) 61 % (31-73) Lymphocytes (%) (Auto) 32 % (24-48) Monocytes (%) (Auto) 7 % (0-9) Eosinophils (%) (Auto) 0 % (0-3) Basophils (%) (Auto) 1 % (0-3) Neutrophils # (Auto) 3.2 x10^3uL (1.8-7.7) Lymphocytes # (Auto) 1.7 x10^3/uL (1.0-4.8) Monocytes # (Auto) 0.3 x10^3/uL (0.0-1.1) Eosinophils # (Auto) 0.0 x10^3/uL (0.0-0.7) Basophils # (Auto) 0.0 x10^3/uL (0.0-0.2) Sodium Level 130 mmol/L (136-145) Potassium Level 4.5 mmol/L (3.5-5.1) Chloride Level 92 mmol/L (98-107) Carbon Dioxide Level 23 mmol/L (21-32) Anion Gap 15 (6-14) Blood Urea Nitrogen 13 mg/dL (8-26) Creatinine 1.2 mg/dL (0.7-1.3) Estimated GFR (Cockcroft-Gault) 90.8 BUN/Creatinine Ratio 11 (6-20) Glucose Level 478 mg/dL (70-99) Calcium Level 9.7 mg/dL (8.5-10.1) Total Bilirubin 1.3 mg/dL (0.2-1.0) Aspartate Amino Transf (AST/SGOT) 23 U/L (15-37) Alanine Aminotransferase (ALT/SGPT) 30 U/L (16-63) Alkaline Phosphatase 105 U/L (46-116) Total Protein 7.5 g/dL (6.4-8.2) Albumin 3.5 g/dL (3.4-5.0) Albumin/Globulin Ratio 0.9 (1.0-1.7) Lipase 114 U/L (73-393) Ethyl Alcohol Level < 10 mg/dL (0-10) Acetone Level Sm pos (NEG) O2 Saturation 90 % (92-99) Arterial Blood pH 7.40 (7.35-7.45) Arterial Blood pCO2 at Patient Temp 30 mmHg (35-46) Arterial Blood pO2 at Patient Temp 58 mmHg (85-108) Arterial Blood HCO3 18 mmol/L (21-28) Arterial Blood Base Excess -6 mmol/L (-3-3) FiO2 21 Glucose (Fingerstick) 373 mg/dL (70-99) Urine Opiates Screen Neg (NEG) Urine Methadone Screen Neg (NEG) Urine Barbiturates Neg (NEG) Urine Phencyclidine Screen Neg (NEG) Urine Amphetamine/Methamphetamine Neg (NEG) Urine Benzodiazepines Screen Neg (NEG) Urine Cocaine Screen Neg (NEG) Urine Cannabinoids Screen Pos (NEG) Urine Ethyl Alcohol Neg (NEG) Test 09/10/18 18:36 09/10/18 19:06 09/11/18 07:40 Glucose (Fingerstick) 256 mg/dL (70-99) 313 mg/dL (70-99) 274 mg/dL (70-99) Laboratory Tests Test 09/10/18 13:20 09/10/18 13:55 09/10/18 14:29 09/10/18 14:34 White Blood Count 5.3 x10^3/uL (4.0-11.0) Red Blood Count 4.80 x10^6/uL (4.30-5.70) Hemoglobin 15.0 g/dL (13.0-17.5) Hematocrit 43.7 % (39.0-53.0) Mean Corpuscular Volume 91 fL (79-100) Mean Corpuscular Hemoglobin 31 pg (25-35) Mean Corpuscular Hemoglobin Concent 34 g/dL (31-37) Red Cell Distribution Width 13.4 % (11.5-14.5) Platelet Count 305 x10^3/uL (140-400) Neutrophils (%) (Auto) 61 % (31-73) Lymphocytes (%) (Auto) 32 % (24-48) Monocytes (%) (Auto) 7 % (0-9) Eosinophils (%) (Auto) 0 % (0-3) Basophils (%) (Auto) 1 % (0-3) Neutrophils # (Auto) 3.2 x10^3uL (1.8-7.7) Lymphocytes # (Auto) 1.7 x10^3/uL (1.0-4.8) Monocytes # (Auto) 0.3 x10^3/uL (0.0-1.1) Eosinophils # (Auto) 0.0 x10^3/uL (0.0-0.7) Basophils # (Auto) 0.0 x10^3/uL (0.0-0.2) Sodium Level 130 mmol/L (136-145) Potassium Level 4.5 mmol/L (3.5-5.1) Chloride Level 92 mmol/L (98-107) Carbon Dioxide Level 23 mmol/L (21-32) Anion Gap 15 (6-14) Blood Urea Nitrogen 13 mg/dL (8-26) Creatinine 1.2 mg/dL (0.7-1.3) Estimated GFR (Cockcroft-Gault) 90.8 BUN/Creatinine Ratio 11 (6-20) Glucose Level 478 mg/dL (70-99) Calcium Level 9.7 mg/dL (8.5-10.1) Total Bilirubin 1.3 mg/dL (0.2-1.0) Aspartate Amino Transf (AST/SGOT) 23 U/L (15-37) Alanine Aminotransferase (ALT/SGPT) 30 U/L (16-63) Alkaline Phosphatase 105 U/L (46-116) Total Protein 7.5 g/dL (6.4-8.2) Albumin 3.5 g/dL (3.4-5.0) Albumin/Globulin Ratio 0.9 (1.0-1.7) Lipase 114 U/L (73-393) Ethyl Alcohol Level < 10 mg/dL (0-10) Acetone Level Sm pos (NEG) O2 Saturation 90 % (92-99) Arterial Blood pH 7.40 (7.35-7.45) Arterial Blood pCO2 at Patient Temp 30 mmHg (35-46) Arterial Blood pO2 at Patient Temp 58 mmHg (85-108) Arterial Blood HCO3 18 mmol/L (21-28) Arterial Blood Base Excess -6 mmol/L (-3-3) FiO2 21 Glucose (Fingerstick) 373 mg/dL (70-99) Urine Opiates Screen Neg (NEG) Urine Methadone Screen Neg (NEG) Urine Barbiturates Neg (NEG) Urine Phencyclidine Screen Neg (NEG) Urine Amphetamine/Methamphetamine Neg (NEG) Urine Benzodiazepines Screen Neg (NEG) Urine Cocaine Screen Neg (NEG) Urine Cannabinoids Screen Pos (NEG) Urine Ethyl Alcohol Neg (NEG) Test 09/10/18 18:36 09/10/18 19:06 09/11/18 07:40 Glucose (Fingerstick) 256 mg/dL (70-99) 313 mg/dL (70-99) 274 mg/dL (70-99) Medications Current Medications Sodium Chloride 1,000 ml @ 1,000 mls/hr 1X ONCE IV Last administered on 09/10/18at 13:35; Start 09/10/18 at 13:15; Stop 09/10/18 at 14:14; Status DC Sodium Chloride 1,000 ml @ 1,000 mls/hr 1X ONCE IV Last administered on 09/10/18at 14:39; Start 09/10/18 at 13:15; Stop 09/10/18 at 14:14; Status DC Famotidine (Pepcid Vial) 20 mg 1X ONCE IVP Last administered on 09/10/18at 13:36; Start 09/10/18 at 13:15; Stop 09/10/18 at 13:16; Status DC Ondansetron HCl (Zofran) 8 mg 1X ONCE IV Last administered on 09/10/18at 13:36; Start 09/10/18 at 13:15; Stop 09/10/18 at 13:16; Status DC Ondansetron HCl (Zofran) 4 mg 1X ONCE IV Last administered on 09/10/18at 13:47; Start 09/10/18 at 13:45; Stop 09/10/18 at 13:46; Status DC Ondansetron HCl (Zofran) 4 mg PRN Q8HRS PRN IV NAUSEA/VOMITING Last administered on 09/11/18at 04:24; Start 09/10/18 at 15:00; Stop 09/11/18 at 08:44; Status DC Insulin Human Lispro (HumaLOG) 0-7 UNITS TIDWMEALS SQ Last administered on 09/11/18at 08:12; Start 09/10/18 at 17:00; Stop 09/11/18 at 08:44; Status DC Dextrose (Dextrose 50%-Water Syringe) 12.5 gm PRN Q15MIN PRN IV SEE COMMENTS; Start 09/10/18 at 15:00 Famotidine (Pepcid Vial) 20 mg Q12HR IVP Last administered on 09/11/18at 08:07; Start 09/10/18 at 21:00 Insulin Human Regular (HumuLIN R VIAL) 6 unit 1X ONCE SQ Last administered on 09/10/18at 15:20; Start 09/10/18 at 15:00; Stop 09/10/18 at 15:01; Status DC Ondansetron HCl (Zofran) 4 mg PRN Q6HRS PRN IV NAUSEA/VOMITING; Start 09/11/18 at 08:45 Acetaminophen (Tylenol) 500 mg 1X ONCE PO Last administered on 09/11/18at 10:01; Start 09/11/18 at 09:15; Stop 09/11/18 at 09:16; Status DC Acetaminophen/ Codeine Phosphate (Tylenol #3) 1 tab PRN Q6HRS PRN PO PAIN; Start 09/11/18 at 08:45 Ibuprofen (Motrin) 600 mg PRN Q6HRS PRN PO INFLAMMATION; Start 09/11/18 at 08:45 Insulin Human Lispro (HumaLOG) 0-9 UNITS TIDWMEALS SQ ; Start 09/11/18 at 12:00 Dextrose (Dextrose 50%-Water Syringe) 12.5 gm PRN Q15MIN PRN IV SEE COMMENTS; Start 09/11/18 at 08:45 Insulin Human Lispro (HumaLOG) 10 units TIDWMEALS SQ ; Start 09/11/18 at 12:00 Insulin Glargine (Lantus) 25 units QHS SQ ; Start 09/11/18 at 21:00 Sodium Chloride 1,000 ml @ 125 mls/hr Q8H IV Last administered on 09/11/18at 10:01; Start 09/11/18 at 09:30 Active Scripts Active Vitals/I & O Vital Sign - Last 24 Hours 09/10/18 09/10/18 09/10/18 09/10/18 13:05 14:30 15:00 15:30 Temp 98.5 98.5 Pulse 66 60 50 66 Resp 20 18 18 18 B/P (MAP) 116/70 (85) 148/96 (113) 137/71 (93) 127/82 (97) Pulse Ox 98 100 100 100 O2 Delivery Room Air Room Air Room Air Room Air 09/10/18 09/10/18 09/10/18 09/10/18 16:00 16:30 18:05 19:10 Temp 98.7 98.7 Pulse 56 56 59 Resp 18 20 20 B/P (MAP) 132/88 (103) 139/88 (105) 150/100 (117) Pulse Ox 100 99 98 O2 Delivery Room Air Room Air Room Air Room Air 09/10/18 09/10/18 09/11/18 09/11/18 20:00 23:28 03:45 07:44 Temp 98.3 98.4 98.0 98.3 98.4 98.0 Pulse 73 62 91 Resp 20 20 19 B/P (MAP) 128/104 (112) 133/74 (93) 127/55 (79) Pulse Ox 99 100 99 O2 Delivery Room Air Room Air Room Air Room Air 09/11/18 08:18 O2 Delivery Room Air Intake and Output 09/10/18 09/10/18 09/11/18 15:00 23:00 07:00 Intake Total 1000 ml 1000 ml 200 ml Balance 1000 ml 1000 ml 200 ml LIAM SLOAN MD September 11, 2018 10:52
[2018-09-11 11:04] VITALS: BP 117/70
[2018-09-11 11:39] LABS: CALCIUM 9.6 mg/dL (8.5-10.1); CREATININE 1.1 mg/dL (0.7-1.3); GFR 100.4; POTASSIUM 4.1 mmol/L (3.5-5.1)
[2018-09-11] MEDS ORDERED: INSULIN LISPRO 300 UNITS/3 ML INSULN.PEN. SQ SCH (12:00)
[2018-09-11 15:34] VITALS: BP 114/69
[2018-09-11 19:55] VITALS: BP 126/91
[2018-09-11] MEDS: FAMOTIDINE 20 MG TABLET. PO SCH (20:25)
[2018-09-11] MEDS ORDERED: INSULIN GLARGINE 300 UNITS/3 ML INSULN.PEN. SQ SCH ×2 (21:00)
[2018-09-11 23:15] VITALS: BP 115/85
[2018-09-12] MEDS: IV NORMAL SALINE 1000ML BAG 1,000 ML IV SCH ×3 (00:09→08:44)
[2018-09-12] MEDS: ONDANSETRON PF 4 MG/2 ML VIAL. IV PRN ×3 (00:09→12:06)
[2018-09-12 03:00] VITALS: BP 126/82
--- NOTE | 2018-09-12 06:15 | NUR ---
Pt. transfered to room 502 via w/c. Gave bedside report to nurse.
[2018-09-12 07:00] VITALS: BP 130/82
[2018-09-12 07:03] LABS: CALCIUM 9.1 mg/dL (8.5-10.1); CREATININE 1.1 mg/dL (0.7-1.3); GFR 100.4; POTASSIUM 3.2 mmol/L (3.5-5.1)
[2018-09-12] MEDS: INSULIN LISPRO 300 UNITS/3 ML INSULN.PEN. SQ SCH ×4 (08:00→12:11)
[2018-09-12] MEDS ORDERED: POTASSIUM CHLORIDE 20 MEQ TABLET.ER. PO ONE (08:30)
[2018-09-12] MEDS: FAMOTIDINE 20 MG TABLET. PO SCH (08:44)
[2018-09-12] MEDS ORDERED: ONDA4TAB7 PO (10:26)
[2018-09-12] MEDS ORDERED: INSU100I13 SQ (10:26)
[2018-09-12] MEDS ORDERED: INSU100I11 SQ (10:26)
--- NOTE | 2018-09-12 10:27 | PDOC3 ---
Discharge Summary Visit Information Date of Admission: September 10, 2018 Date of Discharge: September 12, 2018 Admitting Diagnosis Comment: DKA with no coma Nausea, emesis SIRS non-infections with no organ dysfunction Positive cannabinoids in the system Anion gap acidosis secondary to DKA Final Diagnosis Problems Medical Problems: (1) Hyperglycemia Status: Acute (2) Insulin dependent diabetes mellitus Status: Acute (3) Nausea & vomiting Status: Acute Brief Hospital Course Allergies Allergies Coded Allergies Type Severity Reaction Last Updated Verified No Known Drug Allergies 08/25/16 No Vital Signs Vital Signs Date Time Temp Pulse Resp B/P (MAP) Pulse Ox O2 Delivery O2 Flow Rate FiO2 09/12/18 07:00 98.1 60 18 130/82 (98) 98 Room Air 98.1 Lab Results Laboratory Tests Test 09/10/18 13:20 09/10/18 13:55 09/10/18 14:29 09/10/18 14:34 White Blood Count 5.3 x10^3/uL (4.0-11.0) Red Blood Count 4.80 x10^6/uL (4.30-5.70) Hemoglobin 15.0 g/dL (13.0-17.5) Hematocrit 43.7 % (39.0-53.0) Mean Corpuscular Volume 91 fL (79-100) Mean Corpuscular Hemoglobin 31 pg (25-35) Mean Corpuscular Hemoglobin Concent 34 g/dL (31-37) Red Cell Distribution Width 13.4 % (11.5-14.5) Platelet Count 305 x10^3/uL (140-400) Neutrophils (%) (Auto) 61 % (31-73) Lymphocytes (%) (Auto) 32 % (24-48) Monocytes (%) (Auto) 7 % (0-9) Eosinophils (%) (Auto) 0 % (0-3) Basophils (%) (Auto) 1 % (0-3) Neutrophils # (Auto) 3.2 x10^3uL (1.8-7.7) Lymphocytes # (Auto) 1.7 x10^3/uL (1.0-4.8) Monocytes # (Auto) 0.3 x10^3/uL (0.0-1.1) Eosinophils # (Auto) 0.0 x10^3/uL (0.0-0.7) Basophils # (Auto) 0.0 x10^3/uL (0.0-0.2) Sodium Level 130 mmol/L (136-145) Potassium Level 4.5 mmol/L (3.5-5.1) Chloride Level 92 mmol/L (98-107) Carbon Dioxide Level 23 mmol/L (21-32) Anion Gap 15 (6-14) Blood Urea Nitrogen 13 mg/dL (8-26) Creatinine 1.2 mg/dL (0.7-1.3) Estimated GFR (Cockcroft-Gault) 90.8 BUN/Creatinine Ratio 11 (6-20) Glucose Level 478 mg/dL (70-99) Calcium Level 9.7 mg/dL (8.5-10.1) Total Bilirubin 1.3 mg/dL (0.2-1.0) Aspartate Amino Transf (AST/SGOT) 23 U/L (15-37) Alanine Aminotransferase (ALT/SGPT) 30 U/L (16-63) Alkaline Phosphatase 105 U/L (46-116) Total Protein 7.5 g/dL (6.4-8.2) Albumin 3.5 g/dL (3.4-5.0) Albumin/Globulin Ratio 0.9 (1.0-1.7) Lipase 114 U/L (73-393) Ethyl Alcohol Level < 10 mg/dL (0-10) Acetone Level Sm pos (NEG) O2 Saturation 90 % (92-99) Arterial Blood pH 7.40 (7.35-7.45) Arterial Blood pCO2 at Patient Temp 30 mmHg (35-46) Arterial Blood pO2 at Patient Temp 58 mmHg (85-108) Arterial Blood HCO3 18 mmol/L (21-28) Arterial Blood Base Excess -6 mmol/L (-3-3) FiO2 21 Glucose (Fingerstick) 373 mg/dL (70-99) Urine Opiates Screen Neg (NEG) Urine Methadone Screen Neg (NEG) Urine Barbiturates Neg (NEG) Urine Phencyclidine Screen Neg (NEG) Urine Amphetamine/Methamphetamine Neg (NEG) Urine Benzodiazepines Screen Neg (NEG) Urine Cocaine Screen Neg (NEG) Urine Cannabinoids Screen Pos (NEG) Urine Ethyl Alcohol Neg (NEG) Test 09/10/18 18:36 09/10/18 19:06 09/11/18 07:40 09/11/18 10:30 Glucose (Fingerstick) 256 mg/dL (70-99) 313 mg/dL (70-99) 274 mg/dL (70-99) Sodium Level 131 mmol/L (136-145) Potassium Level 4.1 mmol/L (3.5-5.1) Chloride Level 94 mmol/L (98-107) Carbon Dioxide Level 21 mmol/L (21-32) Anion Gap 16 (6-14) Blood Urea Nitrogen 9 mg/dL (8-26) Creatinine 1.1 mg/dL (0.7-1.3) Estimated GFR (Cockcroft-Gault) 100.4 Glucose Level 291 mg/dL (70-99) Calcium Level 9.6 mg/dL (8.5-10.1) Test 09/11/18 11:43 09/11/18 16:47 09/11/18 19:16 09/12/18 04:53 Glucose (Fingerstick) 285 mg/dL (70-99) 259 mg/dL (70-99) 300 mg/dL (70-99) Sodium Level 135 mmol/L (136-145) Potassium Level 3.2 mmol/L (3.5-5.1) Chloride Level 100 mmol/L (98-107) Carbon Dioxide Level 25 mmol/L (21-32) Anion Gap 10 (6-14) Blood Urea Nitrogen 9 mg/dL (8-26) Creatinine 1.1 mg/dL (0.7-1.3) Estimated GFR (Cockcroft-Gault) 100.4 Glucose Level 131 mg/dL (70-99) Calcium Level 9.1 mg/dL (8.5-10.1) Test 09/12/18 06:56 Glucose (Fingerstick) 106 mg/dL (70-99) Laboratory Tests Test 09/11/18 10:30 09/11/18 11:43 09/11/18 16:47 09/11/18 19:16 Sodium Level 131 mmol/L (136-145) Potassium Level 4.1 mmol/L (3.5-5.1) Chloride Level 94 mmol/L (98-107) Carbon Dioxide Level 21 mmol/L (21-32) Anion Gap 16 (6-14) Blood Urea Nitrogen 9 mg/dL (8-26) Creatinine 1.1 mg/dL (0.7-1.3) Estimated GFR (Cockcroft-Gault) 100.4 Glucose Level 291 mg/dL (70-99) Calcium Level 9.6 mg/dL (8.5-10.1) Glucose (Fingerstick) 285 mg/dL (70-99) 259 mg/dL (70-99) 300 mg/dL (70-99) Test 09/12/18 04:53 09/12/18 06:56 Sodium Level 135 mmol/L (136-145) Potassium Level 3.2 mmol/L (3.5-5.1) Chloride Level 100 mmol/L (98-107) Carbon Dioxide Level 25 mmol/L (21-32) Anion Gap 10 (6-14) Blood Urea Nitrogen 9 mg/dL (8-26) Creatinine 1.1 mg/dL (0.7-1.3) Estimated GFR (Cockcroft-Gault) 100.4 Glucose Level 131 mg/dL (70-99) Calcium Level 9.1 mg/dL (8.5-10.1) Glucose (Fingerstick) 106 mg/dL (70-99) Brief Hospital Course Mr. Molina is a 23 old [place] male who is a type I diabetic and supposed to be on 8 units mealtime NovoLog and 24 units daily at bedtime. I reconciled home meds and gap is now closed, feeling better. Request for Zofran pills Consults performed none Procedures performed none Time discharging less than 30 minutes Did not need insulin drip, gap was 17, colleague did not start an insulin drip. We caught up with insulin for the hyperglycemia Discharge Information Condition at Discharge: Improved, Stable Follow Up: Weeks (pcp 4 weeks re dm mx) Disposition/Orders: D/C to Home Scheduled Insulin Glargine,Hum.rec.anlog (Lantus Solostar) 100 Unit/1 Ml Insuln.pen, 24 UNITS SQ QHS for dm MDD 1 for 30 Days Prescribed by: ILAM SLOAN on 09/12/18 1026 Insulin Lispro (Humalog) 100 Unit/1 Ml Insuln.pen, 8 UNITS SQ TIDWMEALS for dm MDD 1 for 30 Days Prescribed by: LIAM SLOAN on 09/12/18 1026 Ondansetron Hcl (Zofran) 4 Mg Tablet, 1 TAB PO Q6HRS for nausea, #60 Prescribed by: LIAM SLOAN on 09/12/18 1026 LIAM SLOAN MD September 12, 2018 10:27
[2018-09-12 11:00] VITALS: BP 123/88
--- NOTE | 2018-09-12 13:25 | NUR ---
Discharge Note: TIMA SINGH [address] [place] [address] Discharge instructions and discharge home medications reviewed with Patient and a copy given. All questions have been answered and understanding verbalized. The following instructions and handouts were given: F/U with PCP within one week. Discontinued lines and drains: Peripheral IV intact. Patient discharged to Home or Self Care with Family Member via Wheelchair.
[2018-09-12 14:09] LABS: HEMOGLOBIN A1C >15.5 % (4.8-5.6)
== END 2018-09-12 13:25 | disposition home or self-care (01) | DRG 638 ==
LOC: ER 13:00 → 6 SOUTH 15:30
PROVIDERS: ADMIT Internal Medicine; ATTEND Internal Medicine
DX: E10.10 Type 1 diabetes mellitus with ketoacidosis without coma (principal); R65.10 Systemic inflammatory response syndrome (SIRS) of non-infectious origin without acute organ dysfunction; Z83.3 Family history of diabetes mellitus; F12.90 Cannabis use, unspecified, uncomplicated; Z91.14 Patient's other noncompliance with medication regimen; Z91.19 Patient's noncompliance with other medical treatment and regimen; Z79.4 Long term (current) use of insulin; Z79.899 Other long term (current) drug therapy
CPT/HCPCS: 36415; 36600; 71045; 80048; 80053; 80307; 82010; 82805; 82962; 83036; 83690; 85025; 96361; 96372; 96374; 96375; G0480; J1815; J2405; J3490; J7030; 99285-25

== ENCOUNTER 2018-10-29 12:13 | Emergency (ER) | payer SELFPAY ==
[~2018-10-29] VITALS: Ht 172.7 cm; Wt 73.0 kg
[~2018-10-29 12:13] MED LIST changes: +ONDA4TAB7 PO
[2018-10-29 12:25] VITALS: BP 142/63
[2018-10-29] MEDS ORDERED: DIPHTH,PERTUSS(ACELL),TET TOX 0.5 ML DISP.SYRIN. VAX IM ONE (13:15)
[2018-10-29] MEDS ORDERED: AMOX1TAB61 PO (13:59)
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
== END 2018-10-29 14:16 | disposition home or self-care (01) ==
LOC: ER 12:13
DX: S01.111A Laceration without foreign body of right eyelid and periocular area, initial encounter (principal); S61.232A Puncture wound without foreign body of right middle finger without damage to nail, initial encounter; E10.9 Type 1 diabetes mellitus without complications; H11.31 Conjunctival hemorrhage, right eye; W50.3XXA Accidental bite by another person, initial encounter; Y93.89 Activity, other specified; Y92.89 Other specified places as the place of occurrence of the external cause; Y99.8 Other external cause status
CPT/HCPCS: 70450; 70486; 90471; 90715; 99284

== ENCOUNTER 2018-12-24 15:00 | Inpatient (IN) | payer OTHER ==
[~2018-12-24] VITALS: Ht 172.7 cm; Wt 64.4 kg
[~2018-12-24 15:00] MED LIST changes: +AMOX1TAB61 PO
--- NOTE | 2018-12-24 15:29 | PHYS DOC ---
Past Medical History Past Medical History: Diabetes-Type I Past Surgical History: No Surgical History Alcohol Use: Occasionally Drug Use: Marijuana Adult General Chief Complaint Chief Complaint: HYPERGLYCEMIA HPI HPI Patient is a 23 year old [male who presents with [nausea and vomiting for the past 4 days. Reports he had been admitted here recently for DKA, felt fine when he left. Reports he has not been able to take his insulin, nor check blood sugars at home since that time. Reports he has problems vision and he is not able to see his glucometer. States he just continues to throb, and was not able to keep any food down as anything he presented within comes back up. States he is not taking any medications as does not have anything to take. ] Review of Systems Review of Systems Constitutional: Denies fever or chills [] Eyes: Denies change in visual acuity, redness, or eye pain, reports chronic vision problems to cataract [] HENT: Denies nasal congestion or sore throat [] Respiratory: Denies cough or shortness of breath [] Cardiovascular: No additional information not addressed in HPI [] GI: Denies bloody stools or diarrhea, complains of nausea, vomiting with abdominal cramping [] : Denies dysuria or hematuria [] Musculoskeletal: Denies back pain or joint pain [] Integument: Denies rash or skin lesions [] Neurologic: Denies headache, focal weakness or sensory changes [] Endocrine: Denies polyuria or polydipsia [] All other systems were reviewed and found to be within normal limits, except as documented in this note. Current Medications Current Medications Current Medications Medications (Trade) Dose Ordered Sig/[facility] Start Time Stop Time Status Last Admin Dose Admin Metoclopramide HCl (Reglan Vial) 10 mg 1X ONCE 12/24/18 15:30 12/24/18 15:31 DC 12/24/18 15:38 10 MG Ondansetron HCl (Zofran) 4 mg 1X ONCE 12/24/18 16:00 12/24/18 16:01 DC 12/24/18 16:15 4 MG Sodium Chloride/ Sodium Chloride 2,000 ml @ 1,000 mls/hr 1X ONCE 12/24/18 15:30 12/24/18 17:29 DC 12/24/18 15:38 1,000 MLS/HR Allergies Allergies Allergies Coded Allergies Type Severity Reaction Last Updated Verified No Known Drug Allergies 08/25/16 No Physical Exam Physical Exam Constitutional: Well developed, well nourished, no acute distress, non-toxic leilani earance. appears dry [] HENT: Normocephalic, atraumatic, bilateral external ears normal, oropharynx dry, no odor ketones, no oral exudates, nose normal. [] Eyes: PERRLA, EOMI, conjunctiva normal, no discharge. [] Neck: Normal range of motion, no tenderness, supple, no stridor. [] Cardiovascular:Heart rate tachycardic, no murmur [] Lungs & Thorax: Bilateral breath sounds clear to auscultation [] Abdomen: Bowel sounds normal, soft, no tenderness, no masses, no pulsatile masses. [] Skin: Warm, dry, no erythema, no rash. [] Back: No tenderness, no CVA tenderness. [] Extremities: No tenderness, no cyanosis, no clubbing, ROM intact, no edema. [] Neurologic: Alert and oriented X 3, normal motor function, normal sensory function, no focal deficits noted. [] Psychologic: Affect normal, judgement normal, mood normal. [] Current Patient Data Vital Signs Vital Signs Date Time Temp Pulse Resp B/P (MAP) Pulse Ox O2 Delivery O2 Flow Rate FiO2 12/24/18 16:15 103 18 112/60 (77) 98 Room Air 12/24/18 15:10 98.0 98.0 Lab Values Laboratory Tests Test 12/24/18 15:15 White Blood Count 8.0 x10^3/uL (4.0-11.0) Red Blood Count 5.83 x10^6/uL (4.30-5.70) H Hemoglobin 18.3 g/dL (13.0-17.5) H Hematocrit 52.6 % (39.0-53.0) Mean Corpuscular Volume 90 fL (79-100) Mean Corpuscular Hemoglobin 31 pg (25-35) Mean Corpuscular Hemoglobin Concent 35 g/dL (31-37) Red Cell Distribution Width 13.5 % (11.5-14.5) Platelet Count 409 x10^3/uL (140-400) H Neutrophils (%) (Auto) 69 % (31-73) Lymphocytes (%) (Auto) 25 % (24-48) Monocytes (%) (Auto) 6 % (0-9) Eosinophils (%) (Auto) 0 % (0-3) Basophils (%) (Auto) 0 % (0-3) Neutrophils # (Auto) 5.5 x10^3/uL (1.8-7.7) Lymphocytes # (Auto) 2.0 x10^3/uL (1.0-4.8) Monocytes # (Auto) 0.5 x10^3/uL (0.0-1.1) Eosinophils # (Auto) 0.0 x10^3/uL (0.0-0.7) Basophils # (Auto) 0.0 x10^3/uL (0.0-0.2) Sodium Level 130 mmol/L (136-145) L Potassium Level 4.7 mmol/L (3.5-5.1) Chloride Level 87 mmol/L (98-107) L Carbon Dioxide Level 14 mmol/L (21-32) L Anion Gap 29 (6-14) H Blood Urea Nitrogen 20 mg/dL (8-26) Creatinine 1.8 mg/dL (0.7-1.3) H Estimated GFR (Cockcroft-Gault) 56.9 BUN/Creatinine Ratio 11 (6-20) Glucose Level 476 mg/dL (70-99) H Calcium Level 10.5 mg/dL (8.5-10.1) H Phosphorus Level 6.1 mg/dL (2.6-4.7) H Magnesium Level 1.5 mg/dL (1.8-2.4) L Total Bilirubin 2.0 mg/dL (0.2-1.0) H Aspartate Amino Transferase (AST) 15 U/L (15-37) Alanine Aminotransferase (ALT) 22 U/L (16-63) Alkaline Phosphatase 88 U/L (46-116) Total Protein 9.4 g/dL (6.4-8.2) H Albumin 4.4 g/dL (3.4-5.0) Albumin/Globulin Ratio 0.9 (1.0-1.7) L Ethyl Alcohol Level < 10 mg/dL (0-10) Acetone Level Sm pos (NEG) Laboratory Tests 12/24/18 15:15 Laboratory Tests 12/24/18 15:15 EKG EKG [] Radiology/Procedures Radiology/Procedures [] Course & Med Decision Making Course & Med Decision Making Pertinent Labs and Imaging studies reviewed. (See chart for details) [] Dragon Disclaimer Dragon Disclaimer This electronic medical record was generated, in whole or in part, using a voice recognition dictation system. 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
[2018-12-24] MEDS ORDERED: METOCLOPRAMIDE HCL 10 MG/2 ML VIAL. IV ONE (15:30)
[2018-12-24] MEDS ORDERED: NORMAL SALINE IV ONE (15:30)
[2018-12-24 15:40] LABS: BASO % 0 % (0-3); CALCIUM 10.5 mg/dL (8.5-10.1); CREATININE 1.8 mg/dL (0.7-1.3); EOS % 0 % (0-3); GFR 56.9; HEMATOCRIT 52.6 % (39.0-53.0); HEMOGLOBIN 18.3 g/dL (13.0-17.5); LYMPH % 25 % (24-48); MEAN CORPUSCULAR HEMOGLOBIN 31 pg (25-35); MEAN CORPUSCULAR HGB CONC 35 g/dL (31-37); MEAN CORPUSCULAR VOLUME 90 fL (79-100); MONO # 0.5 x10^3/uL (0.0-1.1); MONO % 6 % (0-9); NEUT # 5.5 x10^3/uL (1.8-7.7); NEUT % 69 % (31-73); PLATELET COUNT 409 x10^3/uL (140-400); POTASSIUM 4.7 mmol/L (3.5-5.1); RED BLOOD COUNT 5.83 x10^6/uL (4.30-5.70); RED CELL DISTRIBUTION WIDTH 13.5 % (11.5-14.5)
[2018-12-24 15:46] LABS: ALBUMIN 4.4 g/dL (3.4-5.0); ALBUMIN/GLOBULIN RATIO 0.9 (1.0-1.7); TOTAL PROTEIN 9.4 g/dL (6.4-8.2)
[2018-12-24] MEDS ORDERED: ONDANSETRON PF 4 MG/2 ML VIAL. IV ONE ×2 (16:00→17:30)
[2018-12-24 16:16] LABS: MAGNESIUM 1.5 mg/dL (1.8-2.4); PHOSPHORUS 6.1 mg/dL (2.6-4.7)
[2018-12-24] MEDS ORDERED: IV 1/2 NORMAL SALINE 1,000 ML IV SCH ×2 (16:23→20:01)
--- NOTE | 2018-12-24 16:24 | PDOC1 ---
History and Physical Date of Admission Date of Admission DATE: 12/24/18 TIME: 16:24 Identification/Chief Complaint Chief Complaint SEEN IN ER, 23 year old [male who presents with [nausea and vomiting for the past 4 days. Reports he had been admitted here recently for DKA, felt fine when he left. Reports he has not been able to take his insulin, nor check blood sugars at home since that time. Reports he has problems vision and he is not able to see his glucometer. States he just continues to throb, and was not able to keep any food down as anything he presented within comes back up. States he is not taking any medications as does not have anything to take., CANNOT AFFORD MEDS ] LAST STAY, He was insistent on leaving hospital despite poor glycemic control and no plan for safety at home and left AMA. Past Medical History Past Medical History Past Medical History Past Medical History: Diabetes-Type I Past Surgical History: No Surgical History Alcohol Use: Occasionally Drug Use: Marijuana fhx diabetes Cardiovascular: Hyperlipidemia GI: No pertinent hx Heme/Onc: No pertinent hx Hepatobiliary: No pertinent hx Psych: Addictions Endocrine: Diabetes Past Surgical History Past Surgical History: No pertinent history Family History Family History: Hypertension Social History Smoke: No ALCOHOL: none Drugs: Marijuana Current Medications Current Medications Current Medications Metoclopramide HCl (Reglan Vial) 10 mg 1X ONCE IV Last administered on 12/24/18at 15:38; Start 12/24/18 at 15:30; Stop 12/24/18 at 15:31; Status DC Sodium Chloride/ Sodium Chloride 2,000 ml @ 1,000 mls/hr 1X ONCE IV Last administered on 12/24/18at 15:38; Start 12/24/18 at 15:30; Stop 12/24/18 at 17:29 Ondansetron HCl (Zofran) 4 mg 1X ONCE IV Last administered on 12/24/18at 16:15; Start 12/24/18 at 16:00; Stop 12/24/18 at 16:01; Status DC Active Scripts Active Augmentin 875-125 Tablet (Amoxicillin/Potassium Clav) 1 Each Tablet 1 Tab PO BID Humalog (Insulin Lispro) 100 Unit/1 Ml Insuln.pen 8 Units SQ TIDWMEALS MDD 1 30 Days Lantus Solostar (Insulin Glargine,Hum.rec.anlog) 100 Unit/1 Ml Insuln.pen 24 Units SQ QHS MDD 1 30 Days Zofran (Ondansetron Hcl) 4 Mg Tablet 1 Tab PO Q6HRS Allergies Allergies: Coded Allergies: No Known Drug Allergies (Unverified , 08/25/16) ROS Review of System Review of Systems Review of Systems Constitutional: Denies fever or chills [] Eyes: Denies change in visual acuity, redness, or eye pain, reports chronic vision problems to cataract [] HENT: Denies nasal congestion or sore throat [] Respiratory: Denies cough or shortness of breath [] Cardiovascular: No additional information not addressed in HPI [] GI: Denies bloody stools or diarrhea, complains of nausea, vomiting with abdominal cramping [] : Denies dysuria or hematuria POS POLYURIA[] Musculoskeletal: Denies back pain or joint pain [] Integument: Denies rash or skin lesions [] Neurologic: Denies headache, focal weakness or sensory changes [] Endocrine: polydipsia [] 14 PT systems were reviewed and found to be within normal limits, except as documented Physical Exam Physical Exam Physical Exam Physical Exam Constitutional: Well developed, well nourished, no acute distress, non-toxic appearance. appears dry [] HENT: Normocephalic, atraumatic, bilateral external ears normal, oropharynx dry, no odor ketones, no oral exudates, nose normal. [] Eyes: PERRLA, EOMI, conjunctiva normal, no discharge. [] Neck: Normal range of motion, no tenderness, supple, no stridor. [] Cardiovascular:Heart rate tachycardic, no murmur [] Lungs & Thorax: Bilateral breath sounds clear to auscultation [] Abdomen: Bowel sounds normal, soft, no tenderness, no masses, no pulsatile masses. [] Skin: Warm, dry, no erythema, no rash. [] Back: No tenderness, no CVA tenderness. [] Extremities: No tenderness, no cyanosis, no clubbing, ROM intact, no edema. [] Neurologic: Alert and oriented X 3, normal motor function, normal sensory function, no focal deficits noted. [] Psychologic: Affect normal, judgement normal, mood normal. [] General: Alert, Oriented X3, Cooperative HEENT: Atraumatic Lungs: Clear to auscultation, Normal air movement Heart: RRR, no gallops Rectal Exam: not examined PELVIC: Examination not indicated Extremities: No cyanosis Skin: No breakdown Neuro: Cranial nerves 3-12 NL Psych/Mental Status: Mental status NL Vitals Vitals Vital Signs Date Time Temp Pulse Resp B/P (MAP) Pulse Ox O2 Delivery O2 Flow Rate FiO2 12/24/18 16:15 103 18 112/60 (77) 98 Room Air 12/24/18 15:10 98.0 98.0 Labs Labs Laboratory Tests Test 12/24/18 15:15 White Blood Count 8.0 x10^3/uL (4.0-11.0) Red Blood Count 5.83 x10^6/uL (4.30-5.70) Hemoglobin 18.3 g/dL (13.0-17.5) Hematocrit 52.6 % (39.0-53.0) Mean Corpuscular Volume 90 fL (79-100) Mean Corpuscular Hemoglobin 31 pg (25-35) Mean Corpuscular Hemoglobin Concent 35 g/dL (31-37) Red Cell Distribution Width 13.5 % (11.5-14.5) Platelet Count 409 x10^3/uL (140-400) Neutrophils (%) (Auto) 69 % (31-73) Lymphocytes (%) (Auto) 25 % (24-48) Monocytes (%) (Auto) 6 % (0-9) Eosinophils (%) (Auto) 0 % (0-3) Basophils (%) (Auto) 0 % (0-3) Neutrophils # (Auto) 5.5 x10^3/uL (1.8-7.7) Lymphocytes # (Auto) 2.0 x10^3/uL (1.0-4.8) Monocytes # (Auto) 0.5 x10^3/uL (0.0-1.1) Eosinophils # (Auto) 0.0 x10^3/uL (0.0-0.7) Basophils # (Auto) 0.0 x10^3/uL (0.0-0.2) Sodium Level 130 mmol/L (136-145) Potassium Level 4.7 mmol/L (3.5-5.1) Chloride Level 87 mmol/L (98-107) Carbon Dioxide Level 14 mmol/L (21-32) Anion Gap 29 (6-14) Blood Urea Nitrogen 20 mg/dL (8-26) Creatinine 1.8 mg/dL (0.7-1.3) Estimated GFR (Cockcroft-Gault) 56.9 BUN/Creatinine Ratio 11 (6-20) Glucose Level 476 mg/dL (70-99) Calcium Level 10.5 mg/dL (8.5-10.1) Phosphorus Level 6.1 mg/dL (2.6-4.7) Magnesium Level 1.5 mg/dL (1.8-2.4) Total Bilirubin 2.0 mg/dL (0.2-1.0) Aspartate Amino Transf (AST/SGOT) 15 U/L (15-37) Alanine Aminotransferase (ALT/SGPT) 22 U/L (16-63) Alkaline Phosphatase 88 U/L (46-116) Total Protein 9.4 g/dL (6.4-8.2) Albumin 4.4 g/dL (3.4-5.0) Albumin/Globulin Ratio 0.9 (1.0-1.7) Acetone Level Sm pos (NEG) Laboratory Tests Test 12/24/18 15:15 White Blood Count 8.0 x10^3/uL (4.0-11.0) Red Blood Count 5.83 x10^6/uL (4.30-5.70) Hemoglobin 18.3 g/dL (13.0-17.5) Hematocrit 52.6 % (39.0-53.0) Mean Corpuscular Volume 90 fL (79-100) Mean Corpuscular Hemoglobin 31 pg (25-35) Mean Corpuscular Hemoglobin Concent 35 g/dL (31-37) Red Cell Distribution Width 13.5 % (11.5-14.5) Platelet Count 409 x10^3/uL (140-400) Neutrophils (%) (Auto) 69 % (31-73) Lymphocytes (%) (Auto) 25 % (24-48) Monocytes (%) (Auto) 6 % (0-9) Eosinophils (%) (Auto) 0 % (0-3) Basophils (%) (Auto) 0 % (0-3) Neutrophils # (Auto) 5.5 x10^3/uL (1.8-7.7) Lymphocytes # (Auto) 2.0 x10^3/uL (1.0-4.8) Monocytes # (Auto) 0.5 x10^3/uL (0.0-1.1) Eosinophils # (Auto) 0.0 x10^3/uL (0.0-0.7) Basophils # (Auto) 0.0 x10^3/uL (0.0-0.2) Sodium Level 130 mmol/L (136-145) Potassium Level 4.7 mmol/L (3.5-5.1) Chloride Level 87 mmol/L (98-107) Carbon Dioxide Level 14 mmol/L (21-32) Anion Gap 29 (6-14) Blood Urea Nitrogen 20 mg/dL (8-26) Creatinine 1.8 mg/dL (0.7-1.3) Estimated GFR (Cockcroft-Gault) 56.9 BUN/Creatinine Ratio 11 (6-20) Glucose Level 476 mg/dL (70-99) Calcium Level 10.5 mg/dL (8.5-10.1) Phosphorus Level 6.1 mg/dL (2.6-4.7) Magnesium Level 1.5 mg/dL (1.8-2.4) Total Bilirubin 2.0 mg/dL (0.2-1.0) Aspartate Amino Transf (AST/SGOT) 15 U/L (15-37) Alanine Aminotransferase (ALT/SGPT) 22 U/L (16-63) Alkaline Phosphatase 88 U/L (46-116) Total Protein 9.4 g/dL (6.4-8.2) Albumin 4.4 g/dL (3.4-5.0) Albumin/Globulin Ratio 0.9 (1.0-1.7) Acetone Level Sm pos (NEG) VTE Prophylaxis Ordered VTE Prophylaxis Devices: Yes VTE Pharmacological Prophylaxi: Yes Assessment/Plan Assessment/Plan IMPRESSION Severe diabetic ketoacidosis, ACUTE Renal insufficiency - likely vasomotor related to DKA NONCOMPLIANCE DUE TO LACK OF FUNDS ADMIT ICU DKA PROTOCOL Frequent labs. Deep venous thrombosis prophylaxis. Cataracts - these are severe Long-term prognosis is guarded. 40 MIN CC TIME JIE SALGUERO MD Dec 24, 2018 16:24
[2018-12-24] MEDS ORDERED: IV DEXTROSE 5 %-0.45 % NACL 1,000 ML IV SCH ×2 (16:25→20:01)
[2018-12-24] MEDS ORDERED: POTASSIUM CHLORIDE 10MEQ 100 ML IV PRN ×5 (16:30→19:00)
[2018-12-24] MEDS ORDERED: ONDANSETRON PF 4 MG/2 ML VIAL. IV PRN ×2 (16:30→19:00)
[2018-12-24] MEDS ORDERED: INSULIN REGULAR VIAL 150 UNIT in 0.9 % SODIUM CHLORIDE 150ML 150 ML IV PRN ×2 (16:30→19:00)
[2018-12-24] MEDS ORDERED: INSULIN,REGULAR 150 UNIT DRIP 150 ML IV ONE ×2 (16:45→17:00)
[2018-12-24 16:59] LABS: BILIRUBIN,URINE NEGATIVE (NEG); CLARITY,URINE CLEAR; COLOR,URINE YELLOW; NITRITE,URINE NEGATIVE (NEG); PROTEIN,URINE 30 mg/dL (NEG-TRACE); UROBILINOGEN,URINE 0.2 mg/dL (0.2 mg/dL)
[2018-12-24 17:06] LABS: BARBITURATES NEG (NEG); BENZODIAZEPINES NEG (NEG); CANNABINOIDS NEG (NEG); COCAINE NEG (NEG); METHADONE NEG (NEG); OPIATES NEG (NEG); PHENCYCLIDINE NEG (NEG)
[2018-12-24 17:07] LABS: AMPHETAMINE/METHAMPHETAMINE NEG (NEG)
[2018-12-24 17:12] LABS: BACTERIA,URINE 0 /HPF (0-FEW); RBC,URINE 0 /HPF (0-2); SQUAMOUS EPITHELIAL CELL,UR FEW /LPF; WBC,URINE RARE /HPF (0-4)
[2018-12-24 18:28] VITALS: BP 137/79
--- NOTE | 2018-12-24 18:51 | NUR ---
PT ORIENTED TO ROOM AND UNIT. BED LOW AND LOCKED, SIDE RAILS UP X3, CALL LIGHT IN REACH. PT CONNECTED TO TELE. ORDER ABG AND PLACE ORDER FOR LABS. WILL GIVE REPORT TO NIGHT RN.
[2018-12-24] MEDS ORDERED: ZOLPIDEM 5 MG TABLET. PO PRN (19:00)
[2018-12-24] MEDS ORDERED: ALBUTEROL SULFATE 2.5 MG/3 ML NEBU. NEB PRN (19:00)
[2018-12-24] MEDS ORDERED: 0.9 % SODIUM CHLORIDE 10 ML DISP.SYRIN. IV PRN (19:00)
[2018-12-24] MEDS ORDERED: cloNIDine HCL 0.1 MG TABLET PO PRN (19:00)
[2018-12-24] MEDS ORDERED: guaiFENesin ORAL 200 MG/10 ML LIQUID. PO PRN (19:00)
[2018-12-24] MEDS ORDERED: DOCUSATE SODIUM 100 MG CAPSULE. PO PRN (19:00)
[2018-12-24] MEDS ORDERED: ACETAMINOPHEN 325 MG TABLET. PO PRN (19:00)
[2018-12-24] MEDS: MAGNESIUM SULFATE 4GM 100 ML IV SCH (19:07)
[2018-12-24] MEDS ORDERED: IV NORMAL SALINE 1000ML BAG 1,000 ML IV SCH (20:01)
[2018-12-24 20:07] VITALS: BP 117/76
[2018-12-24 20:15] LABS: CALCIUM 9.2 mg/dL (8.5-10.1); CREATININE 1.3 mg/dL (0.7-1.3); GFR 82.8; MAGNESIUM 2.2 mg/dL (1.8-2.4); PHOSPHORUS 3.2 mg/dL (2.6-4.7)
[2018-12-24] MEDS: POTASSIUM CHLORIDE 10MEQ 100 ML IV PRN ×2 (20:33→21:40)
--- NOTE | 2018-12-24 20:42 | NUR ---
ASSUME CARE, ASSESSMENT COMPLETE, DENIES PAIN AT THIS TIME, CALL LIGHT IN PLACE WILL MONITOR PT STATUS AND SAFETY PMRN
[2018-12-24 20:49] LABS: BASE EXCESS ABG -8 mmol/L (-3-3); HCO3 ABG 14 mmol/L (21-28); PCO2 ABG 24 mmHg (35-46); PO2 ABG 106 mmHg (85-108); SAT O2 ABG 98 % (92-99)
[2018-12-24 21:00] VITALS: BP 122/77
[2018-12-24 22:26] VITALS: BP 121/84
[2018-12-24] MEDS ORDERED: IV DEXTROSE 5% - 0.9 % NACL 1,000 ML IV SCH (22:30)
[2018-12-24 23:00] VITALS: BP 119/68
[2018-12-24 23:49] LABS: CALCIUM 8.8 mg/dL (8.5-10.1); CREATININE 1.5 mg/dL (0.7-1.3); GFR 70.2; MAGNESIUM 2.2 mg/dL (1.8-2.4); PHOSPHORUS 2.6 mg/dL (2.6-4.7); POTASSIUM 4.1 mmol/L (3.5-5.1)
[2018-12-24 23:53] LABS: FIO2 ABG 21
[2018-12-25] VITALS (18 sets, daily range): BP systolic 109–136; BP diastolic 71–99
--- NOTE | 2018-12-25 00:39 | NUR ---
PT ANION GAP IS 10 PER DKA PROTOCAL, DR SALGUERO NOTIFIED FOR SUB Q INSULIN ORDERS, WILL CONT TO MONITOR PT STATUS AND SAFETY. PMRN
[2018-12-25] MEDS: IV NORMAL SALINE 1000ML BAG 1,000 ML IV SCH ×3 (00:55→16:53)
[2018-12-25] MEDS ORDERED: INSULIN GLARGINE SYRINGE. SQ ONE (01:00)
[2018-12-25] MEDS ORDERED: INSULIN GLARGINE SYRINGE. SQ SCH ×2 (01:00→21:00)
--- NOTE | 2018-12-25 02:25 | NUR ---
INSULIN GTT D'CD PER DKA PROTOCOL, PT BLOOD SUGAR 112, WILL CONT TO MONITOR PT STATUS AND SAFETY. PMRN
[2018-12-25 06:02] LABS: CALCIUM 8.8 mg/dL (8.5-10.1); CREATININE 1.1 mg/dL (0.7-1.3); GFR 100.4; MAGNESIUM 1.9 mg/dL (1.8-2.4); PHOSPHORUS 2.9 mg/dL (2.6-4.7); POTASSIUM 3.8 mmol/L (3.5-5.1)
[2018-12-25 06:11] LABS: HEMATOCRIT 41.5 % (39.0-53.0); HEMOGLOBIN 14.6 g/dL (13.0-17.5); RED BLOOD COUNT 4.64 x10^6/uL (4.30-5.70); RED CELL DISTRIBUTION WIDTH 13.4 % (11.5-14.5); WHITE BLOOD COUNT 8.5 x10^3/uL (4.0-11.0)
[2018-12-25] MEDS ORDERED: INSU100C SQ (08:00)
[2018-12-25] MEDS ORDERED: INSULIN LISPRO 300 UNITS/3 ML VIAL. SQ SCH (08:15)
[2018-12-25] MEDS: INSULIN LISPRO 300 UNITS/3 ML VIAL. SQ SCH ×6 (08:42→17:33)
[2018-12-25] MEDS: ENOXAPARIN 40 MG/0.4 ML SYRINGE. SQ SCH (08:44)
[2018-12-25] MEDS ORDERED: DEXTROSE 50% 25 GM / 50ML DISP.SYRIN. IV PRN (08:45)
[2018-12-25] MEDS ORDERED: IV DEXTROSE 5% 250 ML BAG. IV PRN (08:45)
--- NOTE | 2018-12-25 09:13 | PDOC ---
PROGRESS NOTES History of Present Illness History of Present Illness VTE Prophylaxis Ordered VTE Prophylaxis Devices: Yes VTE Pharmacological Prophylaxi: Yes Assessment/Plan Assessment/Plan IMPRESSION Severe diabetic ketoacidosis, ACUTE Renal insufficiency - likely vasomotor related to DKA NONCOMPLIANCE DUE TO LACK OF FUNDS depression ADMIT ICU DKA PROTOCOL Frequent labs. Deep venous thrombosis prophylaxis. Cataracts - these are severe, he is unable to self administer his insulin at home Long-term prognosis is guarded. DUE TO LACK OF family SUPPORT 37 MIN CC TIME Vitals Vitals Vital Signs Date Time Temp Pulse Resp B/P (MAP) Pulse Ox O2 Delivery O2 Flow Rate FiO2 12/25/18 07:00 98.1 90 16 109/71 (84) 100 Room Air 98.1 Physical Exam General: Alert, Oriented X3, Cooperative, No acute distress Heart: Regular rate, Normal S1, Normal S2 Lungs: Clear Abdomen: Normal bowel sounds, Soft, No hepatosplenomegaly Extremities: No cyanosis Skin: No breakdown Labs LABS Laboratory Tests Test 12/24/18 15:15 12/24/18 16:48 12/24/18 17:03 12/24/18 18:19 White Blood Count 8.0 x10^3/uL (4.0-11.0) Red Blood Count 5.83 x10^6/uL (4.30-5.70) Hemoglobin 18.3 g/dL (13.0-17.5) Hematocrit 52.6 % (39.0-53.0) Mean Corpuscular Volume 90 fL (79-100) Mean Corpuscular Hemoglobin 31 pg (25-35) Mean Corpuscular Hemoglobin Concent 35 g/dL (31-37) Red Cell Distribution Width 13.5 % (11.5-14.5) Platelet Count 409 x10^3/uL (140-400) Neutrophils (%) (Auto) 69 % (31-73) Lymphocytes (%) (Auto) 25 % (24-48) Monocytes (%) (Auto) 6 % (0-9) Eosinophils (%) (Auto) 0 % (0-3) Basophils (%) (Auto) 0 % (0-3) Neutrophils # (Auto) 5.5 x10^3/uL (1.8-7.7) Lymphocytes # (Auto) 2.0 x10^3/uL (1.0-4.8) Monocytes # (Auto) 0.5 x10^3/uL (0.0-1.1) Eosinophils # (Auto) 0.0 x10^3/uL (0.0-0.7) Basophils # (Auto) 0.0 x10^3/uL (0.0-0.2) Sodium Level 130 mmol/L (136-145) Potassium Level 4.7 mmol/L (3.5-5.1) Chloride Level 87 mmol/L (98-107) Carbon Dioxide Level 14 mmol/L (21-32) Anion Gap 29 (6-14) Blood Urea Nitrogen 20 mg/dL (8-26) Creatinine 1.8 mg/dL (0.7-1.3) Estimated GFR (Cockcroft-Gault) 56.9 BUN/Creatinine Ratio 11 (6-20) Glucose Level 476 mg/dL (70-99) Calcium Level 10.5 mg/dL (8.5-10.1) Phosphorus Level 6.1 mg/dL (2.6-4.7) Magnesium Level 1.5 mg/dL (1.8-2.4) Total Bilirubin 2.0 mg/dL (0.2-1.0) Aspartate Amino Transf (AST/SGOT) 15 U/L (15-37) Alanine Aminotransferase (ALT/SGPT) 22 U/L (16-63) Alkaline Phosphatase 88 U/L (46-116) Total Protein 9.4 g/dL (6.4-8.2) Albumin 4.4 g/dL (3.4-5.0) Albumin/Globulin Ratio 0.9 (1.0-1.7) Ethyl Alcohol Level < 10 mg/dL (0-10) Acetone Level Sm pos (NEG) Urine Collection Type Void Urine Color Yellow Urine Clarity Clear Urine pH 5.0 Urine Specific [place] >=1.030 Urine Protein 30 mg/dL (NEG-TRACE) Urine Glucose (UA) >=1000 mg/dL (NEG) Urine Ketones (Stick) >=80 mg/dL (NEG) Urine Blood Negative (NEG) Urine Nitrite Negative (NEG) Urine Bilirubin Negative (NEG) Urine Urobilinogen Dipstick 0.2 mg/dL (0.2 mg/dL) Urine Leukocyte Esterase Negative (NEG) Urine RBC 0 /HPF (0-2) Urine WBC Rare /HPF (0-4) Urine Squamous Epithelial Cells Few /LPF Urine Bacteria 0 /HPF (0-FEW) Urine Opiates Screen Neg (NEG) Urine Methadone Screen Neg (NEG) Urine Barbiturates Neg (NEG) Urine Phencyclidine Screen Neg (NEG) Urine Amphetamine/Methamphetamine Neg (NEG) Urine Benzodiazepines Screen Neg (NEG) Urine Cocaine Screen Neg (NEG) Urine Cannabinoids Screen Neg (NEG) Urine Ethyl Alcohol Neg (NEG) Glucose (Fingerstick) 400 mg/dL (70-99) 350 mg/dL (70-99) Test 12/24/18 19:24 12/24/18 19:30 12/24/18 20:40 12/24/18 22:04 Glucose (Fingerstick) 256 mg/dL (70-99) 181 mg/dL (70-99) Sodium Level 136 mmol/L (136-145) Potassium Level 4.0 mmol/L (3.5-5.1) Chloride Level 100 mmol/L (98-107) Carbon Dioxide Level 16 mmol/L (21-32) Anion Gap 20 (6-14) Blood Urea Nitrogen 16 mg/dL (8-26) Creatinine 1.3 mg/dL (0.7-1.3) Estimated GFR (Cockcroft-Gault) 82.8 Glucose Level 273 mg/dL (70-99) Calcium Level 9.2 mg/dL (8.5-10.1) Phosphorus Level 3.2 mg/dL (2.6-4.7) Magnesium Level 2.2 mg/dL (1.8-2.4) O2 Saturation 98 % (92-99) Arterial Blood pH 7.39 (7.35-7.45) Arterial Blood pCO2 at Patient Temp 24 mmHg (35-46) Arterial Blood pO2 at Patient Temp 106 mmHg (85-108) Arterial Blood HCO3 14 mmol/L (21-28) Arterial Blood Base Excess -8 mmol/L (-3-3) FiO2 21 Test 12/24/18 23:12 12/24/18 23:15 12/25/18 00:12 12/25/18 01:17 Glucose (Fingerstick) 216 mg/dL (70-99) 218 mg/dL (70-99) 190 mg/dL (70-99) Sodium Level 135 mmol/L (136-145) Potassium Level 4.1 mmol/L (3.5-5.1) Chloride Level 102 mmol/L (98-107) Carbon Dioxide Level 23 mmol/L (21-32) Anion Gap 10 (6-14) Blood Urea Nitrogen 15 mg/dL (8-26) Creatinine 1.5 mg/dL (0.7-1.3) Estimated GFR (Cockcroft-Gault) 70.2 Glucose Level 231 mg/dL (70-99) Calcium Level 8.8 mg/dL (8.5-10.1) Phosphorus Level 2.6 mg/dL (2.6-4.7) Magnesium Level 2.2 mg/dL (1.8-2.4) Test 12/25/18 02:09 12/25/18 03:06 12/25/18 04:23 12/25/18 05:04 Glucose (Fingerstick) 112 mg/dL (70-99) 108 mg/dL (70-99) 178 mg/dL (70-99) White Blood Count 8.5 x10^3/uL (4.0-11.0) Red Blood Count 4.64 x10^6/uL (4.30-5.70) Hemoglobin 14.6 g/dL (13.0-17.5) Hematocrit 41.5 % (39.0-53.0) Mean Corpuscular Volume 90 fL (79-100) Mean Corpuscular Hemoglobin 32 pg (25-35) Mean Corpuscular Hemoglobin Concent 35 g/dL (31-37) Red Cell Distribution Width 13.4 % (11.5-14.5) Platelet Count 297 x10^3/uL (140-400) Sodium Level 136 mmol/L (136-145) Potassium Level 3.8 mmol/L (3.5-5.1) Chloride Level 102 mmol/L (98-107) Carbon Dioxide Level 23 mmol/L (21-32) Anion Gap 11 (6-14) Blood Urea Nitrogen 15 mg/dL (8-26) Creatinine 1.1 mg/dL (0.7-1.3) Estimated GFR (Cockcroft-Gault) 100.4 Glucose Level 185 mg/dL (70-99) Calcium Level 8.8 mg/dL (8.5-10.1) Phosphorus Level 2.9 mg/dL (2.6-4.7) Magnesium Level 1.9 mg/dL (1.8-2.4) Test 12/25/18 07:41 Glucose (Fingerstick) 262 mg/dL (70-99) Comment Review of Relevant I have reviewed the following items grupo (where applicable) has been applied. Labs Laboratory Tests Test 12/24/18 15:15 12/24/18 16:48 12/24/18 17:03 12/24/18 18:19 White Blood Count 8.0 x10^3/uL (4.0-11.0) Red Blood Count 5.83 x10^6/uL (4.30-5.70) Hemoglobin 18.3 g/dL (13.0-17.5) Hematocrit 52.6 % (39.0-53.0) Mean Corpuscular Volume 90 fL (79-100) Mean Corpuscular Hemoglobin 31 pg (25-35) Mean Corpuscular Hemoglobin Concent 35 g/dL (31-37) Red Cell Distribution Width 13.5 % (11.5-14.5) Platelet Count 409 x10^3/uL (140-400) Neutrophils (%) (Auto) 69 % (31-73) Lymphocytes (%) (Auto) 25 % (24-48) Monocytes (%) (Auto) 6 % (0-9) Eosinophils (%) (Auto) 0 % (0-3) Basophils (%) (Auto) 0 % (0-3) Neutrophils # (Auto) 5.5 x10^3/uL (1.8-7.7) Lymphocytes # (Auto) 2.0 x10^3/uL (1.0-4.8) Monocytes # (Auto) 0.5 x10^3/uL (0.0-1.1) Eosinophils # (Auto) 0.0 x10^3/uL (0.0-0.7) Basophils # (Auto) 0.0 x10^3/uL (0.0-0.2) Sodium Level 130 mmol/L (136-145) Potassium Level 4.7 mmol/L (3.5-5.1) Chloride Level 87 mmol/L (98-107) Carbon Dioxide Level 14 mmol/L (21-32) Anion Gap 29 (6-14) Blood Urea Nitrogen 20 mg/dL (8-26) Creatinine 1.8 mg/dL (0.7-1.3) Estimated GFR (Cockcroft-Gault) 56.9 BUN/Creatinine Ratio 11 (6-20) Glucose Level 476 mg/dL (70-99) Calcium Level 10.5 mg/dL (8.5-10.1) Phosphorus Level 6.1 mg/dL (2.6-4.7) Magnesium Level 1.5 mg/dL (1.8-2.4) Total Bilirubin 2.0 mg/dL (0.2-1.0) Aspartate Amino Transf (AST/SGOT) 15 U/L (15-37) Alanine Aminotransferase (ALT/SGPT) 22 U/L (16-63) Alkaline Phosphatase 88 U/L (46-116) Total Protein 9.4 g/dL (6.4-8.2) Albumin 4.4 g/dL (3.4-5.0) Albumin/Globulin Ratio 0.9 (1.0-1.7) Ethyl Alcohol Level < 10 mg/dL (0-10) Acetone Level Sm pos (NEG) Urine Collection Type Void Urine Color Yellow Urine Clarity Clear Urine pH 5.0 Urine Specific [place] >=1.030 Urine Protein 30 mg/dL (NEG-TRACE) Urine Glucose (UA) >=1000 mg/dL (NEG) Urine Ketones (Stick) >=80 mg/dL (NEG) Urine Blood Negative (NEG) Urine Nitrite Negative (NEG) Urine Bilirubin Negative (NEG) Urine Urobilinogen Dipstick 0.2 mg/dL (0.2 mg/dL) Urine Leukocyte Esterase Negative (NEG) Urine RBC 0 /HPF (0-2) Urine WBC Rare /HPF (0-4) Urine Squamous Epithelial Cells Few /LPF Urine Bacteria 0 /HPF (0-FEW) Urine Opiates Screen Neg (NEG) Urine Methadone Screen Neg (NEG) Urine Barbiturates Neg (NEG) Urine Phencyclidine Screen Neg (NEG) Urine Amphetamine/Methamphetamine Neg (NEG) Urine Benzodiazepines Screen Neg (NEG) Urine Cocaine Screen Neg (NEG) Urine Cannabinoids Screen Neg (NEG) Urine Ethyl Alcohol Neg (NEG) Glucose (Fingerstick) 400 mg/dL (70-99) 350 mg/dL (70-99) Test 12/24/18 19:24 12/24/18 19:30 12/24/18 20:40 12/24/18 22:04 Glucose (Fingerstick) 256 mg/dL (70-99) 181 mg/dL (70-99) Sodium Level 136 mmol/L (136-145) Potassium Level 4.0 mmol/L (3.5-5.1) Chloride Level 100 mmol/L (98-107) Carbon Dioxide Level 16 mmol/L (21-32) Anion Gap 20 (6-14) Blood Urea Nitrogen 16 mg/dL (8-26) Creatinine 1.3 mg/dL (0.7-1.3) Estimated GFR (Cockcroft-Gault) 82.8 Glucose Level 273 mg/dL (70-99) Calcium Level 9.2 mg/dL (8.5-10.1) Phosphorus Level 3.2 mg/dL (2.6-4.7) Magnesium Level 2.2 mg/dL (1.8-2.4) O2 Saturation 98 % (92-99) Arterial Blood pH 7.39 (7.35-7.45) Arterial Blood pCO2 at Patient Temp 24 mmHg (35-46) Arterial Blood pO2 at Patient Temp 106 mmHg (85-108) Arterial Blood HCO3 14 mmol/L (21-28) Arterial Blood Base Excess -8 mmol/L (-3-3) FiO2 21 Test 12/24/18 23:12 12/24/18 23:15 12/25/18 00:12 12/25/18 01:17 Glucose (Fingerstick) 216 mg/dL (70-99) 218 mg/dL (70-99) 190 mg/dL (70-99) Sodium Level 135 mmol/L (136-145) Potassium Level 4.1 mmol/L (3.5-5.1) Chloride Level 102 mmol/L (98-107) Carbon Dioxide Level 23 mmol/L (21-32) Anion Gap 10 (6-14) Blood Urea Nitrogen 15 mg/dL (8-26) Creatinine 1.5 mg/dL (0.7-1.3) Estimated GFR (Cockcroft-Gault) 70.2 Glucose Level 231 mg/dL (70-99) Calcium Level 8.8 mg/dL (8.5-10.1) Phosphorus Level 2.6 mg/dL (2.6-4.7) Magnesium Level 2.2 mg/dL (1.8-2.4) Test 12/25/18 02:09 12/25/18 03:06 12/25/18 04:23 12/25/18 05:04 Glucose (Fingerstick) 112 mg/dL (70-99) 108 mg/dL (70-99) 178 mg/dL (70-99) White Blood Count 8.5 x10^3/uL (4.0-11.0) Red Blood Count 4.64 x10^6/uL (4.30-5.70) Hemoglobin 14.6 g/dL (13.0-17.5) Hematocrit 41.5 % (39.0-53.0) Mean Corpuscular Volume 90 fL (79-100) Mean Corpuscular Hemoglobin 32 pg (25-35) Mean Corpuscular Hemoglobin Concent 35 g/dL (31-37) Red Cell Distribution Width 13.4 % (11.5-14.5) Platelet Count 297 x10^3/uL (140-400) Sodium Level 136 mmol/L (136-145) Potassium Level 3.8 mmol/L (3.5-5.1) Chloride Level 102 mmol/L (98-107) Carbon Dioxide Level 23 mmol/L (21-32) Anion Gap 11 (6-14) Blood Urea Nitrogen 15 mg/dL (8-26) Creatinine 1.1 mg/dL (0.7-1.3) Estimated GFR (Cockcroft-Gault) 100.4 Glucose Level 185 mg/dL (70-99) Calcium Level 8.8 mg/dL (8.5-10.1) Phosphorus Level 2.9 mg/dL (2.6-4.7) Magnesium Level 1.9 mg/dL (1.8-2.4) Test 12/25/18 07:41 Glucose (Fingerstick) 262 mg/dL (70-99) Laboratory Tests Test 12/24/18 15:15 12/24/18 16:48 12/24/18 17:03 12/24/18 18:19 White Blood Count 8.0 x10^3/uL (4.0-11.0) Red Blood Count 5.83 x10^6/uL (4.30-5.70) Hemoglobin 18.3 g/dL (13.0-17.5) Hematocrit 52.6 % (39.0-53.0) Mean Corpuscular Volume 90 fL (79-100) Mean Corpuscular Hemoglobin 31 pg (25-35) Mean Corpuscular Hemoglobin Concent 35 g/dL (31-37) Red Cell Distribution Width 13.5 % (11.5-14.5) Platelet Count 409 x10^3/uL (140-400) Neutrophils (%) (Auto) 69 % (31-73) Lymphocytes (%) (Auto) 25 % (24-48) Monocytes (%) (Auto) 6 % (0-9) Eosinophils (%) (Auto) 0 % (0-3) Basophils (%) (Auto) 0 % (0-3) Neutrophils # (Auto) 5.5 x10^3/uL (1.8-7.7) Lymphocytes # (Auto) 2.0 x10^3/uL (1.0-4.8) Monocytes # (Auto) 0.5 x10^3/uL (0.0-1.1) Eosinophils # (Auto) 0.0 x10^3/uL (0.0-0.7) Basophils # (Auto) 0.0 x10^3/uL (0.0-0.2) Sodium Level 130 mmol/L (136-145) Potassium Level 4.7 mmol/L (3.5-5.1) Chloride Level 87 mmol/L (98-107) Carbon Dioxide Level 14 mmol/L (21-32) Anion Gap 29 (6-14) Blood Urea Nitrogen 20 mg/dL (8-26) Creatinine 1.8 mg/dL (0.7-1.3) Estimated GFR (Cockcroft-Gault) 56.9 BUN/Creatinine Ratio 11 (6-20) Glucose Level 476 mg/dL (70-99) Calcium Level 10.5 mg/dL (8.5-10.1) Phosphorus Level 6.1 mg/dL (2.6-4.7) Magnesium Level 1.5 mg/dL (1.8-2.4) Total Bilirubin 2.0 mg/dL (0.2-1.0) Aspartate Amino Transf (AST/SGOT) 15 U/L (15-37) Alanine Aminotransferase (ALT/SGPT) 22 U/L (16-63) Alkaline Phosphatase 88 U/L (46-116) Total Protein 9.4 g/dL (6.4-8.2) Albumin 4.4 g/dL (3.4-5.0) Albumin/Globulin Ratio 0.9 (1.0-1.7) Ethyl Alcohol Level < 10 mg/dL (0-10) Acetone Level Sm pos (NEG) Urine Collection Type Void Urine Color Yellow Urine Clarity Clear Urine pH 5.0 Urine Specific [place] >=1.030 Urine Protein 30 mg/dL (NEG-TRACE) Urine Glucose (UA) >=1000 mg/dL (NEG) Urine Ketones (Stick) >=80 mg/dL (NEG) Urine Blood Negative (NEG) Urine Nitrite Negative (NEG) Urine Bilirubin Negative (NEG) Urine Urobilinogen Dipstick 0.2 mg/dL (0.2 mg/dL) Urine Leukocyte Esterase Negative (NEG) Urine RBC 0 /HPF (0-2) Urine WBC Rare /HPF (0-4) Urine Squamous Epithelial Cells Few /LPF Urine Bacteria 0 /HPF (0-FEW) Urine Opiates Screen Neg (NEG) Urine Methadone Screen Neg (NEG) Urine Barbiturates Neg (NEG) Urine Phencyclidine Screen Neg (NEG) Urine Amphetamine/Methamphetamine Neg (NEG) Urine Benzodiazepines Screen Neg (NEG) Urine Cocaine Screen Neg (NEG) Urine Cannabinoids Screen Neg (NEG) Urine Ethyl Alcohol Neg (NEG) Glucose (Fingerstick) 400 mg/dL (70-99) 350 mg/dL (70-99) Test 12/24/18 19:24 12/24/18 19:30 12/24/18 20:40 12/24/18 22:04 Glucose (Fingerstick) 256 mg/dL (70-99) 181 mg/dL (70-99) Sodium Level 136 mmol/L (136-145) Potassium Level 4.0 mmol/L (3.5-5.1) Chloride Level 100 mmol/L (98-107) Carbon Dioxide Level 16 mmol/L (21-32) Anion Gap 20 (6-14) Blood Urea Nitrogen 16 mg/dL (8-26) Creatinine 1.3 mg/dL (0.7-1.3) Estimated GFR (Cockcroft-Gault) 82.8 Glucose Level 273 mg/dL (70-99) Calcium Level 9.2 mg/dL (8.5-10.1) Phosphorus Level 3.2 mg/dL (2.6-4.7) Magnesium Level 2.2 mg/dL (1.8-2.4) O2 Saturation 98 % (92-99) Arterial Blood pH 7.39 (7.35-7.45) Arterial Blood pCO2 at Patient Temp 24 mmHg (35-46) Arterial Blood pO2 at Patient Temp 106 mmHg (85-108) Arterial Blood HCO3 14 mmol/L (21-28) Arterial Blood Base Excess -8 mmol/L (-3-3) FiO2 21 Test 12/24/18 23:12 12/24/18 23:15 12/25/18 00:12 12/25/18 01:17 Glucose (Fingerstick) 216 mg/dL (70-99) 218 mg/dL (70-99) 190 mg/dL (70-99) Sodium Level 135 mmol/L (136-145) Potassium Level 4.1 mmol/L (3.5-5.1) Chloride Level 102 mmol/L (98-107) Carbon Dioxide Level 23 mmol/L (21-32) Anion Gap 10 (6-14) Blood Urea Nitrogen 15 mg/dL (8-26) Creatinine 1.5 mg/dL (0.7-1.3) Estimated GFR (Cockcroft-Gault) 70.2 Glucose Level 231 mg/dL (70-99) Calcium Level 8.8 mg/dL (8.5-10.1) Phosphorus Level 2.6 mg/dL (2.6-4.7) Magnesium Level 2.2 mg/dL (1.8-2.4) Test 12/25/18 02:09 12/25/18 03:06 12/25/18 04:23 12/25/18 05:04 Glucose (Fingerstick) 112 mg/dL (70-99) 108 mg/dL (70-99) 178 mg/dL (70-99) White Blood Count 8.5 x10^3/uL (4.0-11.0) Red Blood Count 4.64 x10^6/uL (4.30-5.70) Hemoglobin 14.6 g/dL (13.0-17.5) Hematocrit 41.5 % (39.0-53.0) Mean Corpuscular Volume 90 fL (79-100) Mean Corpuscular Hemoglobin 32 pg (25-35) Mean Corpuscular Hemoglobin Concent 35 g/dL (31-37) Red Cell Distribution Width 13.4 % (11.5-14.5) Platelet Count 297 x10^3/uL (140-400) Sodium Level 136 mmol/L (136-145) Potassium Level 3.8 mmol/L (3.5-5.1) Chloride Level 102 mmol/L (98-107) Carbon Dioxide Level 23 mmol/L (21-32) Anion Gap 11 (6-14) Blood Urea Nitrogen 15 mg/dL (8-26) Creatinine 1.1 mg/dL (0.7-1.3) Estimated GFR (Cockcroft-Gault) 100.4 Glucose Level 185 mg/dL (70-99) Calcium Level 8.8 mg/dL (8.5-10.1) Phosphorus Level 2.9 mg/dL (2.6-4.7) Magnesium Level 1.9 mg/dL (1.8-2.4) Test 12/25/18 07:41 Glucose (Fingerstick) 262 mg/dL (70-99) Medications Current Medications Metoclopramide HCl (Reglan Vial) 10 mg 1X ONCE IV Last administered on 12/24/18at 15:38; Start 12/24/18 at 15:30; Stop 12/24/18 at 15:31; Status DC Sodium Chloride/ Sodium Chloride 2,000 ml @ 1,000 mls/hr 1X ONCE IV Last administered on 12/24/18at 15:38; Start 12/24/18 at 15:30; Stop 12/24/18 at 17:29; Status DC Ondansetron HCl (Zofran) 4 mg 1X ONCE IV Last administered on 12/24/18at 16:15; Start 12/24/18 at 16:00; Stop 12/24/18 at 16:01; Status DC Sodium Chloride 1,000 ml @ 500 mls/hr Q2H IV ; Start 12/24/18 at 16:23; Stop 12/24/18 at 18:22; Status DC Dextrose/Sodium Chloride 1,000 ml @ 250 mls/hr Q4H IV ; Start 12/24/18 at 16:25; Stop 12/25/18 at 07:52; Status DC Insulin Human Regular 150 unit/ Sodium Chloride 151.5 ml @ 0 mls/hr CONT PRN PRN IV PER PROTOCOL; Start 12/24/18 at 16:30; Status UNV Potassium Chloride/Water 100 ml @ 100 mls/hr PRN Q1HR PRN IV SEE COMMENTS Last administered on 12/24/18at 21:40; Start 12/24/18 at 16:30; Stop 12/25/18 at 07:51; Status DC Potassium Chloride/Water 100 ml @ 100 mls/hr PRN Q1HR PRN IV SEE COMMENTS; Start 12/24/18 at 16:30; Stop 12/25/18 at 07:51; Status DC Potassium Chloride/Water 100 ml @ 100 mls/hr PRN Q1HR PRN IV SEE COMMENTS; Start 12/24/18 at 16:30; Stop 12/25/18 at 07:51; Status DC Magnesium Sulfate 100 ml @ 25 mls/hr DAILY IV Last administered on 12/24/18at 19:07; Start 12/25/18 at 09:00; Stop 12/28/18 at 08:59 Ondansetron HCl (Zofran) 4 mg PRN Q8HRS PRN IV NAUSEA/VOMITING; Start 12/24/18 at 16:30; Stop 12/25/18 at 16:29 Insulin Human Regular 150 ml @ 0 mls/hr 1X ONCE IV ; Start 12/24/18 at 16:45; Stop 12/24/18 at 16:46; Status Cancel Insulin Human Regular 150 ml @ 6.35 mls/hr 1X ONCE IV Last administered on 12/24/18at 17:10; Start 12/24/18 at 17:00; Stop 12/25/18 at 16:37 Ondansetron HCl (Zofran) 4 mg 1X ONCE IV Last administered on 12/24/18at 17:30; Start 12/24/18 at 17:30; Stop 12/24/18 at 17:31; Status DC Sodium Chloride (Normal Saline Flush) 3 ml QSHIFT PRN IV AFTER MEDS AND BLOOD DRAWS; Start 12/24/18 at 19:00 Ondansetron HCl (Zofran) 4 mg PRN Q4HRS PRN IV NAUSEA/VOMITING; Start 12/24/18 at 19:00 Zolpidem Tartrate (Ambien) 5 mg PRN QHS PRN PO INSOMNIA; Start 12/24/18 at 19:00 Acetaminophen (Tylenol) 650 mg PRN Q4HRS PRN PO TEMP OVER 100.4F OR MILD PAIN; Start 12/24/18 at 19:00 Clonidine HCl (Catapres) 0.1 mg PRN Q6HRS PRN PO SBP>160 OR DBP>90; Start 12/24/18 at 19:00 Docusate Sodium (Colace) 100 mg PRN BID PRN PO CONSTIPATION; Start 12/24/18 at 19:00 Albuterol Sulfate (Ventolin Neb Soln) 2.5 mg PRN Q4HRS PRN NEB SHORTNESS OF BR EATH; Start 12/24/18 at 19:00 Guaifenesin (Robitussin) 200 mg PRN Q4HRS PRN PO COUGH; Start 12/24/18 at 19:00 Enoxaparin Sodium (Lovenox 40mg Syringe) 40 mg DAILY SQ ; Start 12/25/18 at 09:00 Insulin Human Regular 150 unit/ Sodium Chloride 151.5 ml @ 0 mls/hr CONT PRN PRN IV PER PROTOCOL; Start 12/24/18 at 19:00 Potassium Chloride/Water 100 ml @ 100 mls/hr PRN Q1HR PRN IV SEE COMMENTS; Start 12/24/18 at 19:00 Potassium Chloride/Water 100 ml @ 100 mls/hr PRN Q1HR PRN IV SEE COMMENTS; Start 12/24/18 at 19:00 Potassium Chloride/Water 100 ml @ 100 mls/hr PRN Q1HR PRN IV SEE COMMENTS; Start 12/24/18 at 19:00 Sodium Chloride 1,000 ml @ 250 mls/hr Q4H IV Last administered on 12/24/18at 20:05; Start 12/24/18 at 20:01 Sodium Chloride 1,000 ml @ 250 mls/hr Q4H IV ; Start 12/24/18 at 20:01 Dextrose/Sodium Chloride 1,000 ml @ 250 mls/hr Q4H IV ; Start 12/24/18 at 20:01 Dextrose/Sodium Chloride 1,000 ml @ 250 mls/hr Q4H IV Last administered on 12/24/18at 22:24; Start 12/24/18 at 22:30 Insulin Glargine (Lantus Syringe) 10 unit 1X SQ ; Start 12/25/18 at 01:00; Status Cancel Sodium Chloride 1,000 ml @ 125 mls/hr Q8H IV Last administered on 12/25/18at 08:44; Start 12/25/18 at 00:45 Insulin Glargine (Lantus Syringe) 12 unit 1X ONCE SQ Last administered on 12/25/18at 01:19; Start 12/25/18 at 01:00; Stop 12/25/18 at 01:01; Status DC Insulin Glargine (Lantus Syringe) 24 unit QHS SQ ; Start 12/25/18 at 21:00 Insulin Human Lispro (HumaLOG) 7 units TIDWMEALS SQ ; Start 12/25/18 at 08:15; Stop 12/25/18 at 08:07; Status DC Insulin Human Lispro (HumaLOG) 7 units TIDBFRMEAL SQ Last administered on 12/25/18at 08:44; Start 12/25/18 at 08:09 Insulin Human Lispro (HumaLOG) 0-5 UNITS TIDWMEALS SQ Last administered on 12/25/18at 08:44; Start 12/25/18 at 08:45 Dextrose (Dextrose 50%-Water Syringe) 12.5 gm PRN Q15MIN PRN IV SEE COMMENTS; Start 12/25/18 at 08:45 Dextrose 250 ml PRN Q15MIN PRN IV SEE COMMENTS; Start 12/25/18 at 08:45 Active Scripts Active Augmentin 875-125 Tablet (Amoxicillin/Potassium Clav) 1 Each Tablet 1 Tab PO BID Lantus Solostar (Insulin Glargine,Hum.rec.anlog) 100 Unit/1 Ml Insuln.pen 24 Units SQ QHS MDD 1 30 Days Zofran (Ondansetron Hcl) 4 Mg Tablet 1 Tab PO Q6HRS Reported Humalog (Insulin Lispro) 100 Unit/1 Ml Cartridge 7 Unit SQ TIDBFRMEAL Vitals/I & O Vital Sign - Last 24 Hours 12/24/18 12/24/18 12/24/18 12/24/18 15:10 16:15 16:45 17:15 Temp 98.0 98.0 Pulse 100 103 135 110 Resp 18 18 18 17 B/P (MAP) 129/85 (100) 112/60 (77) 136/93 (107) 135/88 (104) Pulse Ox 100 98 99 99 O2 Delivery Room Air Room Air Room Air Room Air 12/24/18 12/24/18 12/24/18 12/24/18 17:45 18:28 20:07 20:16 Temp 98.0 98.4 98.0 98.4 Pulse 101 112 112 Resp 17 16 16 B/P (MAP) 140/88 (105) 137/79 (98) 117/76 (90) Pulse Ox 98 98 100 O2 Delivery Room Air Room Air Room Air Room Air 12/24/18 12/24/18 12/24/18 12/24/18 21:00 22:26 22:40 23:00 Pulse 106 110 93 Resp 17 16 B/P (MAP) 122/77 (92) 121/84 (96) 119/68 (85) Pulse Ox 98 100 100 O2 Delivery Room Air Room Air Room Air Room Air 12/25/18 12/25/18 12/25/18 12/25/18 00:01 00:03 01:03 02:16 Temp 98.8 98.8 Pulse 94 94 95 Resp 12 12 16 B/P (MAP) 120/73 (89) 115/71 (86) 130/87 (101) Pulse Ox 100 100 100 O2 Delivery Room Air Room Air Room Air Room Air 12/25/18 12/25/18 12/25/18 12/25/18 03:21 04:20 04:38 05:19 Temp 98.2 98.2 Pulse 99 84 88 Resp 12 B/P (MAP) 118/79 (92) 135/99 (111) 119/78 (92) Pulse Ox 100 99 99 O2 Delivery Room Air Room Air Room Air Room Air 12/25/18 12/25/18 06:12 07:00 Temp 98.1 98.1 Pulse 89 90 Resp 16 B/P (MAP) 123/76 (92) 109/71 (84) Pulse Ox 100 100 O2 Delivery Room Air Room Air Intake and Output 12/24/18 12/24/18 12/25/18 15:00 23:00 07:00 Intake Total 2640 ml 1020 ml Output Total 300 ml 450 ml Balance 2340 ml 570 ml JIE SALGUERO MD Dec 25, 2018 09:13
--- NOTE | 2018-12-25 18:59 | NUR ---
Report called to [facility] on [facility]. Patient will be transferred via wheelchair.
[2018-12-26] MEDS: IV NORMAL SALINE 1000ML BAG 1,000 ML IV SCH ×2 (01:11→10:44)
[2018-12-26 03:00] VITALS: BP 113/72
[2018-12-26 07:00] VITALS: BP 130/82
[2018-12-26] MEDS: INSULIN LISPRO 300 UNITS/3 ML VIAL. SQ SCH ×3 (08:00→12:30)
[2018-12-26 08:03] LABS: ALBUMIN 2.5 g/dL (3.4-5.0); ALBUMIN/GLOBULIN RATIO 0.8 (1.0-1.7); CALCIUM 8.1 mg/dL (8.5-10.1); CREATININE 0.8 mg/dL (0.7-1.3); TOTAL BILIRUBIN 1.4 mg/dL (0.2-1.0); TOTAL PROTEIN 5.5 g/dL (6.4-8.2)
[2018-12-26 08:06] LABS: POTASSIUM 2.9 mmol/L (3.5-5.1)
[2018-12-26 08:10] LABS: BASO % 0 % (0-3); EOS % 0 % (0-3); HEMATOCRIT 35.1 % (39.0-53.0); HEMOGLOBIN 12.4 g/dL (13.0-17.5); LYMPH # 3.1 x10^3/uL (1.0-4.8); LYMPH % 60 % (24-48); MEAN CORPUSCULAR HEMOGLOBIN 31 pg (25-35); MEAN CORPUSCULAR HGB CONC 35 g/dL (31-37); MEAN CORPUSCULAR VOLUME 89 fL (79-100); MONO # 0.3 x10^3/uL (0.0-1.1); MONO % 5 % (0-9); NEUT # 1.8 x10^3/uL (1.8-7.7); NEUT % 34 % (31-73); PLATELET COUNT 242 x10^3/uL (140-400); RED BLOOD COUNT 3.96 x10^6/uL (4.30-5.70); RED CELL DISTRIBUTION WIDTH 13.5 % (11.5-14.5); WHITE BLOOD COUNT 5.2 x10^3/uL (4.0-11.0)
[2018-12-26] MEDS: ENOXAPARIN 40 MG/0.4 ML SYRINGE. SQ SCH (09:00)
[2018-12-26] MEDS ORDERED: POTASSIUM CHLORIDE 20 MEQ TABLET.ER. PO ONE ×3 (09:00→16:30)
--- NOTE | 2018-12-26 10:06 | EKG ---
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
[2018-12-26] MEDS: MAGNESIUM SULFATE 4GM 100 ML IV SCH (10:45)
[2018-12-26 11:00] VITALS: BP 114/63
[2018-12-26] MEDS ORDERED: MAGNESIUM SULFATE 4GM 100 ML IV ONE (11:45)
[2018-12-26] MEDS ORDERED: IV DEXTROSE 5% 250 ML BAG. IV PRN (11:45)
[2018-12-26] MEDS ORDERED: DEXTROSE 50% 25 GM / 50ML DISP.SYRIN. IV PRN (11:45)
[2018-12-26] MEDS ORDERED: INSULIN LISPRO 300 UNITS/3 ML VIAL. SQ SCH (12:00)
--- NOTE | 2018-12-26 13:26 | PDOC3 ---
Discharge Summary Visit Information Date of Admission: Dec 24, 2018 Date of Discharge: Dec 26, 2018 Admitting Diagnosis Comment: dka resolved Final Diagnosis Problems Medical Problems: (1) DKA (diabetic ketoacidoses) Status: Acute Brief Hospital Course Allergies Allergies Coded Allergies Type Severity Reaction Last Updated Verified No Known Drug Allergies 08/25/16 No Vital Signs Vital Signs Date Time Temp Pulse Resp B/P (MAP) Pulse Ox O2 Delivery O2 Flow Rate FiO2 12/26/18 11:00 98.0 103 17 114/63 (80) 100 Room Air 98.0 Lab Results Laboratory Tests Test 12/24/18 15:15 12/24/18 16:48 12/24/18 17:03 12/24/18 18:19 White Blood Count 8.0 x10^3/uL (4.0-11.0) Red Blood Count 5.83 x10^6/uL (4.30-5.70) Hemoglobin 18.3 g/dL (13.0-17.5) Hematocrit 52.6 % (39.0-53.0) Mean Corpuscular Volume 90 fL (79-100) Mean Corpuscular Hemoglobin 31 pg (25-35) Mean Corpuscular Hemoglobin Concent 35 g/dL (31-37) Red Cell Distribution Width 13.5 % (11.5-14.5) Platelet Count 409 x10^3/uL (140-400) Neutrophils (%) (Auto) 69 % (31-73) Lymphocytes (%) (Auto) 25 % (24-48) Monocytes (%) (Auto) 6 % (0-9) Eosinophils (%) (Auto) 0 % (0-3) Basophils (%) (Auto) 0 % (0-3) Neutrophils # (Auto) 5.5 x10^3/uL (1.8-7.7) Lymphocytes # (Auto) 2.0 x10^3/uL (1.0-4.8) Monocytes # (Auto) 0.5 x10^3/uL (0.0-1.1) Eosinophils # (Auto) 0.0 x10^3/uL (0.0-0.7) Basophils # (Auto) 0.0 x10^3/uL (0.0-0.2) Sodium Level 130 mmol/L (136-145) Potassium Level 4.7 mmol/L (3.5-5.1) Chloride Level 87 mmol/L (98-107) Carbon Dioxide Level 14 mmol/L (21-32) Anion Gap 29 (6-14) Blood Urea Nitrogen 20 mg/dL (8-26) Creatinine 1.8 mg/dL (0.7-1.3) Estimated GFR (Cockcroft-Gault) 56.9 BUN/Creatinine Ratio 11 (6-20) Glucose Level 476 mg/dL (70-99) Calcium Level 10.5 mg/dL (8.5-10.1) Phosphorus Level 6.1 mg/dL (2.6-4.7) Magnesium Level 1.5 mg/dL (1.8-2.4) Total Bilirubin 2.0 mg/dL (0.2-1.0) Aspartate Amino Transf (AST/SGOT) 15 U/L (15-37) Alanine Aminotransferase (ALT/SGPT) 22 U/L (16-63) Alkaline Phosphatase 88 U/L (46-116) Total Protein 9.4 g/dL (6.4-8.2) Albumin 4.4 g/dL (3.4-5.0) Albumin/Globulin Ratio 0.9 (1.0-1.7) Ethyl Alcohol Level < 10 mg/dL (0-10) Acetone Level Sm pos (NEG) Urine Collection Type Void Urine Color Yellow Urine Clarity Clear Urine pH 5.0 Urine Specific Randall >=1.030 Urine Protein 30 mg/dL (NEG-TRACE) Urine Glucose (UA) >=1000 mg/dL (NEG) Urine Ketones (Stick) >=80 mg/dL (NEG) Urine Blood Negative (NEG) Urine Nitrite Negative (NEG) Urine Bilirubin Negative (NEG) Urine Urobilinogen Dipstick 0.2 mg/dL (0.2 mg/dL) Urine Leukocyte Esterase Negative (NEG) Urine RBC 0 /HPF (0-2) Urine WBC Rare /HPF (0-4) Urine Squamous Epithelial Cells Few /LPF Urine Bacteria 0 /HPF (0-FEW) Urine Opiates Screen Neg (NEG) Urine Methadone Screen Neg (NEG) Urine Barbiturates Neg (NEG) Urine Phencyclidine Screen Neg (NEG) Urine Amphetamine/Methamphetamine Neg (NEG) Urine Benzodiazepines Screen Neg (NEG) Urine Cocaine Screen Neg (NEG) Urine Cannabinoids Screen Neg (NEG) Urine Ethyl Alcohol Neg (NEG) Glucose (Fingerstick) 400 mg/dL (70-99) 350 mg/dL (70-99) Test 12/24/18 19:24 12/24/18 19:30 12/24/18 20:40 12/24/18 22:04 Glucose (Fingerstick) 256 mg/dL (70-99) 181 mg/dL (70-99) Sodium Level 136 mmol/L (136-145) Potassium Level 4.0 mmol/L (3.5-5.1) Chloride Level 100 mmol/L (98-107) Carbon Dioxide Level 16 mmol/L (21-32) Anion Gap 20 (6-14) Blood Urea Nitrogen 16 mg/dL (8-26) Creatinine 1.3 mg/dL (0.7-1.3) Estimated GFR (Cockcroft-Gault) 82.8 Glucose Level 273 mg/dL (70-99) Calcium Level 9.2 mg/dL (8.5-10.1) Phosphorus Level 3.2 mg/dL (2.6-4.7) Magnesium Level 2.2 mg/dL (1.8-2.4) O2 Saturation 98 % (92-99) Arterial Blood pH 7.39 (7.35-7.45) Arterial Blood pCO2 at Patient Temp 24 mmHg (35-46) Arterial Blood pO2 at Patient Temp 106 mmHg (85-108) Arterial Blood HCO3 14 mmol/L (21-28) Arterial Blood Base Excess -8 mmol/L (-3-3) FiO2 21 Test 12/24/18 23:12 12/24/18 23:15 12/25/18 00:12 12/25/18 01:17 Glucose (Fingerstick) 216 mg/dL (70-99) 218 mg/dL (70-99) 190 mg/dL (70-99) Sodium Level 135 mmol/L (136-145) Potassium Level 4.1 mmol/L (3.5-5.1) Chloride Level 102 mmol/L (98-107) Carbon Dioxide Level 23 mmol/L (21-32) Anion Gap 10 (6-14) Blood Urea Nitrogen 15 mg/dL (8-26) Creatinine 1.5 mg/dL (0.7-1.3) Estimated GFR (Cockcroft-Gault) 70.2 Glucose Level 231 mg/dL (70-99) Calcium Level 8.8 mg/dL (8.5-10.1) Phosphorus Level 2.6 mg/dL (2.6-4.7) Magnesium Level 2.2 mg/dL (1.8-2.4) Test 12/25/18 02:09 12/25/18 03:06 12/25/18 04:23 12/25/18 05:04 Glucose (Fingerstick) 112 mg/dL (70-99) 108 mg/dL (70-99) 178 mg/dL (70-99) White Blood Count 8.5 x10^3/uL (4.0-11.0) Red Blood Count 4.64 x10^6/uL (4.30-5.70) Hemoglobin 14.6 g/dL (13.0-17.5) Hematocrit 41.5 % (39.0-53.0) Mean Corpuscular Volume 90 fL (79-100) Mean Corpuscular Hemoglobin 32 pg (25-35) Mean Corpuscular Hemoglobin Concent 35 g/dL (31-37) Red Cell Distribution Width 13.4 % (11.5-14.5) Platelet Count 297 x10^3/uL (140-400) Sodium Level 136 mmol/L (136-145) Potassium Level 3.8 mmol/L (3.5-5.1) Chloride Level 102 mmol/L (98-107) Carbon Dioxide Level 23 mmol/L (21-32) Anion Gap 11 (6-14) Blood Urea Nitrogen 15 mg/dL (8-26) Creatinine 1.1 mg/dL (0.7-1.3) Estimated GFR (Cockcroft-Gault) 100.4 Glucose Level 185 mg/dL (70-99) Calcium Level 8.8 mg/dL (8.5-10.1) Phosphorus Level 2.9 mg/dL (2.6-4.7) Magnesium Level 1.9 mg/dL (1.8-2.4) Test 12/25/18 07:41 12/25/18 11:07 12/25/18 16:43 12/25/18 20:54 Glucose (Fingerstick) 262 mg/dL (70-99) 346 mg/dL (70-99) 175 mg/dL (70-99) 296 mg/dL (70-99) Test 12/26/18 05:55 12/26/18 08:06 12/26/18 12:11 White Blood Count 5.2 x10^3/uL (4.0-11.0) Red Blood Count 3.96 x10^6/uL (4.30-5.70) Hemoglobin 12.4 g/dL (13.0-17.5) Hematocrit 35.1 % (39.0-53.0) Mean Corpuscular Volume 89 fL (79-100) Mean Corpuscular Hemoglobin 31 pg (25-35) Mean Corpuscular Hemoglobin Concent 35 g/dL (31-37) Red Cell Distribution Width 13.5 % (11.5-14.5) Platelet Count 242 x10^3/uL (140-400) Neutrophils (%) (Auto) 34 % (31-73) Lymphocytes (%) (Auto) 60 % (24-48) Monocytes (%) (Auto) 5 % (0-9) Eosinophils (%) (Auto) 0 % (0-3) Basophils (%) (Auto) 0 % (0-3) Neutrophils # (Auto) 1.8 x10^3/uL (1.8-7.7) Lymphocytes # (Auto) 3.1 x10^3/uL (1.0-4.8) Monocytes # (Auto) 0.3 x10^3/uL (0.0-1.1) Eosinophils # (Auto) 0.0 x10^3/uL (0.0-0.7) Basophils # (Auto) 0.0 x10^3/uL (0.0-0.2) Sodium Level 138 mmol/L (136-145) Potassium Level 2.9 mmol/L (3.5-5.1) Chloride Level 105 mmol/L (98-107) Carbon Dioxide Level 24 mmol/L (21-32) Anion Gap 9 (6-14) Blood Urea Nitrogen 8 mg/dL (8-26) Creatinine 0.8 mg/dL (0.7-1.3) Estimated GFR (Cockcroft-Gault) 145.0 BUN/Creatinine Ratio 10 (6-20) Glucose Level 181 mg/dL (70-99) Calcium Level 8.1 mg/dL (8.5-10.1) Magnesium Level 1.2 mg/dL (1.8-2.4) Total Bilirubin 1.4 mg/dL (0.2-1.0) Aspartate Amino Transf (AST/SGOT) 13 U/L (15-37) Alanine Aminotransferase (ALT/SGPT) 17 U/L (16-63) Alkaline Phosphatase 49 U/L (46-116) Total Protein 5.5 g/dL (6.4-8.2) Albumin 2.5 g/dL (3.4-5.0) Albumin/Globulin Ratio 0.8 (1.0-1.7) Glucose (Fingerstick) 131 mg/dL (70-99) 158 mg/dL (70-99) Laboratory Tests Test 12/25/18 16:43 12/25/18 20:54 12/26/18 05:55 12/26/18 08:06 Glucose (Fingerstick) 175 mg/dL (70-99) 296 mg/dL (70-99) 131 mg/dL (70-99) White Blood Count 5.2 x10^3/uL (4.0-11.0) Red Blood Count 3.96 x10^6/uL (4.30-5.70) Hemoglobin 12.4 g/dL (13.0-17.5) Hematocrit 35.1 % (39.0-53.0) Mean Corpuscular Volume 89 fL (79-100) Mean Corpuscular Hemoglobin 31 pg (25-35) Mean Corpuscular Hemoglobin Concent 35 g/dL (31-37) Red Cell Distribution Width 13.5 % (11.5-14.5) Platelet Count 242 x10^3/uL (140-400) Neutrophils (%) (Auto) 34 % (31-73) Lymphocytes (%) (Auto) 60 % (24-48) Monocytes (%) (Auto) 5 % (0-9) Eosinophils (%) (Auto) 0 % (0-3) Basophils (%) (Auto) 0 % (0-3) Neutrophils # (Auto) 1.8 x10^3/uL (1.8-7.7) Lymphocytes # (Auto) 3.1 x10^3/uL (1.0-4.8) Monocytes # (Auto) 0.3 x10^3/uL (0.0-1.1) Eosinophils # (Auto) 0.0 x10^3/uL (0.0-0.7) Basophils # (Auto) 0.0 x10^3/uL (0.0-0.2) Sodium Level 138 mmol/L (136-145) Potassium Level 2.9 mmol/L (3.5-5.1) Chloride Level 105 mmol/L (98-107) Carbon Dioxide Level 24 mmol/L (21-32) Anion Gap 9 (6-14) Blood Urea Nitrogen 8 mg/dL (8-26) Creatinine 0.8 mg/dL (0.7-1.3) Estimated GFR (Cockcroft-Gault) 145.0 BUN/Creatinine Ratio 10 (6-20) Glucose Level 181 mg/dL (70-99) Calcium Level 8.1 mg/dL (8.5-10.1) Magnesium Level 1.2 mg/dL (1.8-2.4) Total Bilirubin 1.4 mg/dL (0.2-1.0) Aspartate Amino Transf (AST/SGOT) 13 U/L (15-37) Alanine Aminotransferase (ALT/SGPT) 17 U/L (16-63) Alkaline Phosphatase 49 U/L (46-116) Total Protein 5.5 g/dL (6.4-8.2) Albumin 2.5 g/dL (3.4-5.0) Albumin/Globulin Ratio 0.8 (1.0-1.7) Test 12/26/18 12:11 Glucose (Fingerstick) 158 mg/dL (70-99) Brief Hospital Course Mr. Molina is a 23 old -[place]iss male known diabetic type I with the following insulin regimen: 24 units daily at bedtime and 7 units 3 times a day. 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 Noncompliant, minimal ambulatory despite young age of 23 and nonobese. We fixed the DKA and he claims he does not need scripts. Home today with no need for prescription but I emphasized compliance Consults performed procedures performed none Time spent discharge less than 30 minutes Discussed with RN at bedside, patient seen and examined Discharge Information Condition at Discharge: Improved, Stable Disposition/Orders: D/C to Home Scheduled Amoxicillin/Potassium Clav (Augmentin 875-125 Tablet) 1 Each Tablet, 1 TAB PO BID, #20 Prescribed by: ADELA VALDES APRN on 10/29/18 1359 Last Action: HELD on 12/26/181138 by LIAM SLOAN Insulin Glargine,Hum.rec.anlog (Lantus Solostar) 100 Unit/1 Ml Insuln.pen, 24 UNITS SQ QHS for dm MDD 1 for 30 Days Prescribed by: LIAM SLOAN on 09/12/18 1026 Last Action: Converted on 12/25/18800 by NIKKI POON Insulin Lispro (Humalog) 100 Unit/1 Ml Cartridge, 7 UNIT SQ TIDBFRMEAL for dm, (Reported) Entered as Reported by: NIKKI POON on 12/25/18 08 Last Taken: Unknown Dose on Unknown Date & Time Last Action: Converted on 12/25/18800 by NIKKI POON Ondansetron Hcl (Zofran) 4 Mg Tablet, 1 TAB PO Q6HRS for nausea, #60 Prescribed by: LIAM SLOAN on 09/12/18 1026 Last Action: Reviewed on 12/26/181138 by LIAM FUENTES MD Dec 26, 2018 13:26
--- NOTE | 2018-12-26 16:11 | NUR ---
SW consulted for cab pass and funds. Chart reviewed and discussed with RN. Pt currently calling his friends to see if they can pick him up. RN aware pt can have a cab pass if needs transport.
--- NOTE | 2018-12-26 16:50 | NUR ---
Pt left unit in wheelchair via private vehicle. Pt IV removed with no complications and stable upon discharge. Discharge information and follow-up discussed, pt had no additional questions.
[2018-12-27 05:10] LABS: HEMOGLOBIN A1C >15.5 % (4.8-5.6)
[2018-12-27] MEDS ORDERED: POTASSIUM CHLORIDE 20 MEQ TABLET.ER. PO SCH (08:00)
== END 2018-12-26 16:52 | disposition home or self-care (01) | DRG 637 ==
LOC: ER 15:00 → 1 WEST ICU 16:20 → 5 SOUTH 12-25 19:59
PROVIDERS: ADMIT Family Medicine; ATTEND Family Medicine
DX: E10.10 Type 1 diabetes mellitus with ketoacidosis without coma (principal); N17.0 Acute kidney failure with tubular necrosis; N28.9 Disorder of kidney and ureter, unspecified; E78.5 Hyperlipidemia, unspecified; F12.90 Cannabis use, unspecified, uncomplicated; E10.36 Type 1 diabetes mellitus with diabetic cataract; F32.9 Major depressive disorder, single episode, unspecified; Z79.4 Long term (current) use of insulin; Z91.19 Patient's noncompliance with other medical treatment and regimen; Z83.3 Family history of diabetes mellitus; Z82.49 Family history of ischemic heart disease and other diseases of the circulatory system
CPT/HCPCS: 36415; 36600; 80048; 80053; 80307; 81001; 82010; 82805; 82962; 83036; 83735; 84100; 84132; 85025; 85027; 93005; 96361; 96374; 96375; G0480; J1815; J2405; J2765; J3475; J3480; J7030; J7042; 99285-25; G0378

== ENCOUNTER 2019-07-30 16:55 | Emergency (ER) | payer OTHER ==
[~2019-07-30] VITALS: Ht 177.8 cm; Wt 80.0 kg
[~2019-07-30 16:55] MED LIST changes: +ACET325T21 PO; +FLUO40CA9 PO; +HALO5TAB PO; +INSU100C SQ; +METO10SO PO; +TRAZ-118 PO
[2019-07-30] MEDS ORDERED: PROCHLORPERAZINE 10 MG/2 ML VIAL. IV ONE (17:15)
[2019-07-30] MEDS ORDERED: IV NORMAL SALINE 1000ML BAG 1,000 ML IV ONE (17:15)
--- NOTE | 2019-07-30 17:19 | PHYS DOC ---
Past Medical History Past Medical History: Diabetes-Type II, High Cholesterol, Hypertension Additional Past Medical Histor: cataracts, blind/visual impairment Past Surgical History: No Surgical History Smoking Status: Current Every Day Smoker Alcohol Use: Occasionally Drug Use: Marijuana General Adult EDM: Chief Complaint: NAUSEA/VOMITING/DIARRHA HPI: HPI: Patient is a 24 year old AA male who presents emergency department via EMS from the [facility]. Patient complains of nausea, vomiting, and right upper quadrant abdominal pain. Pt was [facility] at [facility] for nausea and vomiting 2 days ago he was given IV fluids and sent home . PT currently rates his pain a 8/10, he denies any alleviating or exacerbating factors. Pt states that he pain does not radiate between his shoulders and he denies shortness of breath, chest pain, or palpitations at this time. Pt states he has no known exposure to COVID 19. Review of Systems: Review of Systems: Constitutional: Denies fever or chills. [] Eyes: Pt reports blindness HENT: Denies nasal congestion or sore throat. [] Respiratory: Denies cough or shortness of breath. [] Cardiovascular: Denies chest pain or edema. [] GI: Denies diarrhea; reports RUQ abdominal pain, nausea, and vomiting : Denies dysuria. [] Musculoskeletal: Denies back pain or joint pain. [] Integument: Denies rash. [] Neurologic: Denies headache, focal weakness or sensory changes. [] Endocrine: Denies polyuria or polydipsia. [] Psychiatric: Denies depression or anxiety. [] Heart Score: Risk Factors: Risk Factors: DM, Current or recent (<one month) smoker, HTN, HLP, family history of CAD, obesity. Risk Scores: Score 0 - 3: 2.5% MACE over next 6 weeks - Discharge Home Score 4 - 6: 20.3% MACE over next 6 weeks - Admit for Clinical Observation Score 7 - 10: 72.7% MACE over next 6 weeks - Early Invasive Strategies Current Medications: Current Medications Medications (Trade) Dose Ordered Sig/Stephanie Start Time Stop Time Status Last Admin Dose Admin Prochlorperazine Edisylate (Compazine) 10 mg 1X ONCE 07/30/19 17:15 07/30/19 17:16 Sodium Chloride 1,000 ml @ 1,000 mls/hr 1X ONCE 07/30/19 17:15 07/30/19 18:14 Allergies: Allergies: Allergies Coded Allergies Type Severity Reaction Last Updated Verified No Known Drug Allergies 08/25/16 No Physical Exam: PE: Constitutional: Well developed, well nourished, no acute distress, non-toxic appearance. [] HENT: Normocephalic, atraumatic, bilateral external ears normal, oropharynx moist, no oral exudates, nose normal. [] Eyes: PERRLA, EOMI, conjunctiva normal, no discharge. [] Neck: Normal range of motion, no stridor. [] Cardiovascular:Heart rate regular rhythm, no murmur [] Lungs & Thorax: Bilateral breath sounds clear to auscultation, Respirations even and unlabored, no retractions, no respiratory distress [] Abdomen: Bowel sounds normal, soft, RUQ TTP, no rebound tenderness, no masses, no pulsatile masses. [] Skin: Warm, dry, no erythema, no rash. [] Back: No tenderness Extremities: No cyanosis, ROM intact Neurologic: Alert and oriented X 3, no focal deficits noted. [] Psychologic: Affect normal, judgement normal, mood normal. [] EKG: EKG: [] Radiology/Procedures: Radiology/Procedures: PROCEDURE: ABDOMEN LTD Exam: Ultrasound abdomen limited Indication: Right upper quadrant abdominal pain Technique: Real-time grayscale and color Doppler images of the right upper quadrant were obtained by the department developer [employer]. Comparisons: CT 06/07/2019 FINDINGS: Liver demonstrates homogenous echotexture. Hepatopedal flow noted within the portal vein. Gallbladder is mildly distended without pericholecystic fluid or gallstones. No wall thickening. No sonographic Thornton sign. Right kidney measures 10.6 cm in length. No hydronephrosis. Pancreas is not well seen. Visualized portions of aorta and IVC are unremarkable. IMPRESSION: 1. Mildly distended gallbladder without evidence for acute cholecystitis. 2. Normal sonographic appearance of the liver. 3. No right-sided hydronephrosis.[] Course & Med Decision Making: Course & Med Decision Making Pertinent Labs and Imaging studies reviewed. (See chart for details) Patient is a 24-year-old male who presents to the emergency department with complaints of right upper quadrant abdominal pain, nausea, and vomiting. His CBC is unremarkable; CMP reveals potassium of 3.2, chloride of 94, CO2 of 36, glucose of 226, calcium of 10.3, total bilirubin of 2.1, and total protein of 8.3; UA is likely contaminated with 5-10 white blood cells and moderate squamous cells present. Patient was given a liter of normal saline, 10 mg of Compazine, and 50 mcg of fentanyl in the emergency department. His symptoms have improved for several hours however patient began to complain of nausea and vomiting again around 2044. He also reported increased pain so another 50 mcg of fentanyl was ordered and 25 mg of rectal Phenergan was also ordered. The patient was encouraged to follow-up with his primary care doctor or farm implement mechanic for further evaluation and a possible PIPIDA scan. [] Dragon Disclaimer: Dragon Disclaimer: This electronic medical record was generated, in whole or in part, using a voice recognition dictation system. Departure Departure Impression: Primary Impression: Right upper quadrant abdominal pain Disposition: HOME, SELF-CARE Condition: STABLE Referrals: NO PCP (PCP) Patient Instructions: Abdominal Pain, Itin-qa-Serl Additional Instructions: Follow up with your primary care doctor or Dr. Ndiaye for further evaluation of your abdominal pain and a possible PIPIDA scan of your gall bladder. Return to the ER if a fever develops or symptoms worsen. CHELA ONOFRE [employer] Jul 30, 2019 17:19
[2019-07-30] MEDS ORDERED: fentaNYL PF VIAL 100 MCG/2 ML VIAL IV ONE ×2 (18:15→21:00)
[2019-07-30 18:41] LABS: BASO # 0.1 x10^3/uL (0.0-0.2); BASO % 1 % (0-3); EOS % 1 % (0-3); HEMATOCRIT 49.8 % (39.0-53.0); HEMOGLOBIN 17.2 g/dL (13.0-17.5); LYMPH # 2.3 x10^3/uL (1.0-4.8); LYMPH % 35 % (24-48); MEAN CORPUSCULAR HEMOGLOBIN 30 pg (25-35); MEAN CORPUSCULAR HGB CONC 35 g/dL (31-37); MEAN CORPUSCULAR VOLUME 87 fL (79-100); MONO # 0.6 x10^3/uL (0.0-1.1); MONO % 8 % (0-9); NEUT # 3.7 x10^3/uL (1.8-7.7); NEUT % 56 % (31-73); PLATELET COUNT 342 x10^3/uL (140-400); RED BLOOD COUNT 5.74 x10^6/uL (4.30-5.70); RED CELL DISTRIBUTION WIDTH 12.5 % (11.5-14.5); WHITE BLOOD COUNT 6.7 x10^3/uL (4.0-11.0)
[2019-07-30 18:50] LABS: CALCIUM 10.3 mg/dL (8.5-10.1); CREATININE 1.1 mg/dL (0.7-1.3); GFR 99.5; POTASSIUM 3.2 mmol/L (3.5-5.1)
[2019-07-30 18:56] LABS: ALBUMIN 4.2 g/dL (3.4-5.0); MAGNESIUM 1.9 mg/dL (1.8-2.4); TOTAL BILIRUBIN 2.1 mg/dL (0.2-1.0); TOTAL PROTEIN 8.3 g/dL (6.4-8.2)
[2019-07-30 19:45] LABS: BILIRUBIN,URINE SMALL (NEG); CLARITY,URINE CLEAR; COLOR,URINE AMBER; NITRITE,URINE NEGATIVE (NEG); PROTEIN,URINE 100 mg/dL (NEG-TRACE)
--- NOTE | 2019-07-30 19:45 | RAD ---
Exam: Ultrasound abdomen limited Indication: Right upper quadrant abdominal pain Technique: Real-time grayscale and color Doppler images of the right upper quadrant were obtained by the department digital associate media director. Comparisons: CT 06/07/2019 FINDINGS: Liver demonstrates homogenous echotexture. Hepatopedal flow noted within the portal vein. Gallbladder is mildly distended without pericholecystic fluid or gallstones. No wall thickening. No sonographic Thornton sign. Right kidney measures 10.6 cm in length. No hydronephrosis. Pancreas is not well seen. Visualized portions of aorta and IVC are unremarkable. IMPRESSION: 1. Mildly distended gallbladder without evidence for acute cholecystitis. 2. Normal sonographic appearance of the liver. 3. No right-sided hydronephrosis. Electronically signed by: Abigail Mendieta MD (07/30/2019 7:42 PM) [id number]
[2019-07-30 19:50] LABS: BACTERIA,URINE 0 /HPF (0-FEW); RBC,URINE OCC /HPF (0-2); SQUAMOUS EPITHELIAL CELL,UR MOD /LPF
[2019-07-30 20:50] VITALS: BP 124/69
[2019-07-30] MEDS ORDERED: PROMETHAZINE 25 MG SUPP.RECT. PR ONE (21:00)
== END 2019-07-30 21:12 | disposition home or self-care (01) ==
LOC: ER 16:55
DX: R10.11 Right upper quadrant pain (principal); R11.2 Nausea with vomiting, unspecified; E11.9 Type 2 diabetes mellitus without complications; I10 Essential (primary) hypertension; E78.00 Pure hypercholesterolemia, unspecified; F17.200 Nicotine dependence, unspecified, uncomplicated
CPT/HCPCS: 36415; 76705; 80053; 81001; 83690; 83735; 85025; 87086; 96361; 96374; 96375; 96376; 99285; J0780; J3010; J7030

== ENCOUNTER 2019-09-12 15:31 | Inpatient (IN) | payer OTHER ==
[~2019-09-12] VITALS: Ht 172.7 cm; Wt 68.5 kg
[2019-09-12] MEDS ORDERED: IV NORMAL SALINE 1000ML BAG 1,000 ML IV SCH (15:40)
[2019-09-12] MEDS ORDERED: ONDANSETRON PF 4 MG/2 ML VIAL. IVP ONE (15:45)
--- NOTE | 2019-09-12 15:55 | EKG ---
[facility] [address] [place] [address] Test Date: 2019-09-12 Test Time: 15:38:18 Pat Name: TIMA SINGH Department: Room: Gender: M [employer] Feeder: : 1995 Requested By: ADELA VALDES Order Number: [id number] Reading MD: Wayne Johnson MD Measurements Intervals [place] Rate: 78 P: 57 WY: 124 QRS: 101 QRSD: 82 T: 22 QT: 338 QTc: 389 Interpretive Statements SINUS RHYTHM RIGHTWARD AXIS OTHERWISE NORMAL ECG Electronically Signed On 09-14-2019 11:49:56 CDT by Wayne Johnson MD
--- NOTE | 2019-09-12 16:03 | PHYS DOC ---
Past Medical History Past Medical History: Diabetes-Type I, High Cholesterol, Hypertension, Renal Disease Additional Past Medical Histor: cataracts, blind/visual impairment Past Surgical History: No Surgical History Smoking Status: Current Every Day Smoker Alcohol Use: Occasionally Drug Use: Marijuana General Adult EDM: Chief Complaint: SYNCOPE HPI: HPI: Patient is a 24 year old Male who presents with patient was admitted on September 05 for DKA. He is a diabetic type I he has no complaints. He also is a marijuana smoker. States he is had nausea and vomiting since the . He states that the day that he got out of the hospital he was better but after that he began with a nausea vomiting again. He states he went to stand up today and got dizzy and fell to the floor but he did not hurt himself or pass out. He states he did not hit his head. He states he has been drinking little sips of water here and there but he cannot keep any food down and he sometimes keeps the fluid down. He denies any abdominal pain, chest pain, shortness of air, dizziness at this time, headache, fever, diarrhea, numbness or tingling, focal weakness, vision changes. He states he had some water this morning and try to keep down some broth. He states he has not actually ate food for the last 5 days. He did smoke marijuana this morning. Review of Systems: Review of Systems: GI: Denies abdominal pain.+ nausea, +vomiting, denies bloody stools or diarrhea. [] Heart Score: Risk Factors: Risk Factors: DM, Current or recent (<one month) smoker, HTN, HLP, family history of CAD, obesity. Risk Scores: Score 0 - 3: 2.5% MACE over next 6 weeks - Discharge Home Score 4 - 6: 20.3% MACE over next 6 weeks - Admit for Clinical Observation Score 7 - 10: 72.7% MACE over next 6 weeks - Early Invasive Strategies Current Medications: Current Medications Medications (Trade) Dose Ordered Sig/Stephanie Start Time Stop Time Status Last Admin Dose Admin Ondansetron HCl (Zofran) 4 mg 1X ONCE 09/12/19 15:45 09/12/19 15:46 DC Sodium Chloride 1,000 ml @ 1,000 mls/hr Q1H 09/12/19 15:40 09/12/19 16:39 Allergies: Allergies: Allergies Coded Allergies Type Severity Reaction Last Updated Verified No Known Drug Allergies 08/25/16 No Physical Exam: PE: Constitutional: Well developed, well nourished, no acute distress, non-toxic appearance. [] HENT: Normocephalic, atraumatic, bilateral external ears normal, oropharynx moist, no oral exudates, nose normal. [] Eyes: PERRLA, EOMI, conjunctiva normal, no discharge. [] Neck: Normal range of motion, no tenderness, supple, no stridor. [] Cardiovascular:Heart rate regular rhythm, no murmur [] Lungs & Thorax: Bilateral breath sounds clear to auscultation [] Abdomen: Bowel sounds normal, soft, no tenderness, no masses, no pulsatile masses. [] Skin: Warm, dry, no erythema, no rash. [] Back: No tenderness, no CVA tenderness. [] Extremities: No tenderness, no cyanosis, no clubbing, ROM intact, no edema. [] Neurologic: Alert and oriented X 3, normal motor function, normal sensory function, no focal deficits noted. [] Psychologic: Affect normal, judgement normal, mood normal. Normal Physical Exam[] Current Patient Data: Labs: Laboratory Tests Test 09/12/19 15:38 Glucose (Fingerstick) 364 mg/dL (70-99) H Vital Signs: Vital Signs Date Time Temp Pulse Resp B/P (MAP) Pulse Ox O2 Delivery O2 Flow Rate FiO2 09/12/19 15:31 98.6 79 18 120/72 (88) 100 Room Air 98.6 EKG: EK and read by Dr Talley. Sinus Rhythm and no STEMI[] Radiology/Procedures: Radiology/Procedures: [] Course & Med Decision Making: Course & Med Decision Making Pertinent Labs and Imaging studies reviewed. (See chart for details) Patient states he has not really been taking his insulin due to he has not been eating any food. Currently only feels nauseated. Abdomen is soft and nontender. Alert and oriented. Speaks in full clear sentences. No extremity swelling. Skin pink warm and dry. Patient has a history of diabetic type I and noncompliance, acute renal failure, every day smoker, marijuana use, depression, hypertension, high cholesterol. When doing orthostatics when patient stood up he became dizzy and his heart rate jumped to 140. After 1.5 L of normal saline patient's heart rate resting and laying down was in the 80s. When we had him stand up to jump to 118. There is no severe drop in blood pressure. Patient states he feels slightly better. I have spoken to Dr Sutton for admission. He states the patient can go to med surg and he can have a total of 4L of NS. [] Dragon Disclaimer: Dragon Disclaimer: This electronic medical record was generated, in whole or in part, using a voice recognition dictation system. Departure Departure Impression: Primary Impression: Dehydration Disposition: ADMITTED INPATIENT Admitting Physician: JESSICA Condition: STABLE Referrals: UNKNOWN PCP NAME (PCP) ADELA VALDES APRN September 12, 2019 16:03
[2019-09-12 16:52] LABS: BASO # 0.1 x10^3/uL (0.0-0.2); BASO % 1 % (0-3); EOS % 1 % (0-3); HEMATOCRIT 50.2 % (39.0-53.0); HEMOGLOBIN 17.3 g/dL (13.0-17.5); LYMPH # 2.9 x10^3/uL (1.0-4.8); LYMPH % 39 % (24-48); MEAN CORPUSCULAR HEMOGLOBIN 31 pg (25-35); MEAN CORPUSCULAR HGB CONC 34 g/dL (31-37); MEAN CORPUSCULAR VOLUME 89 fL (79-100); MONO # 0.4 x10^3/uL (0.0-1.1); MONO % 6 % (0-9); NEUT % 54 % (31-73); PLATELET COUNT 408 x10^3/uL (140-400); RED BLOOD COUNT 5.64 x10^6/uL (4.30-5.70); RED CELL DISTRIBUTION WIDTH 13.4 % (11.5-14.5); WHITE BLOOD COUNT 7.4 x10^3/uL (4.0-11.0)
[2019-09-12 16:58] LABS: PROTHROMBIN TIME PATIENT 13.4 SEC (11.7-14.0)
[2019-09-12 17:02] LABS: CALCIUM 10.4 mg/dL (8.5-10.1); CREATININE 1.5 mg/dL (0.7-1.3); GFR 69.6; POTASSIUM 4.1 mmol/L (3.5-5.1)
[2019-09-12 17:08] LABS: ALBUMIN 4.3 g/dL (3.4-5.0); TOTAL BILIRUBIN 1.4 mg/dL (0.2-1.0); TOTAL PROTEIN 8.4 g/dL (6.4-8.2)
[2019-09-12] MEDS ORDERED: IV NORMAL SALINE 1000ML BAG 1,000 ML IV ONE (17:15)
[2019-09-12] MEDS ORDERED: INSULIN REGULAR 100 UNIT/ML 3ML VIAL. IV ONE (17:15)
[2019-09-12 17:30] LABS: BILIRUBIN,URINE NEGATIVE (NEG); CLARITY,URINE CLEAR; COLOR,URINE YELLOW; NITRITE,URINE NEGATIVE (NEG); PH,URINE 7.5 (<5.0-8.0); PROTEIN,URINE NEGATIVE (NEG-TRACE)
[2019-09-12 17:37] LABS: BASE EXCESS COOX 4 mmol/L (-3-3); HCO3 COOX 29 mmol/L (21-28); METHEMOGLOBIN 0.4 % (0.0-1.9); OXYHEMOGLOBIN 93.8 %; PCO2 COOX 44 mmHg (35-46); PO2 COOX 77 mmHg (85-108); SAT O2 COOX 95 % (92-99)
[2019-09-12 17:38] LABS: BARBITURATES NEG (NEG); BENZODIAZEPINES NEG (NEG); CANNABINOIDS POS (NEG); COCAINE NEG (NEG); METHADONE NEG (NEG); OPIATES NEG (NEG); PHENCYCLIDINE NEG (NEG)
[2019-09-12 17:40] LABS: AMPHETAMINE/METHAMPHETAMINE NEG (NEG)
[2019-09-12 17:41] LABS: BACTERIA,URINE FEW /HPF (0-FEW); RBC,URINE 0 /HPF (0-2); SQUAMOUS EPITHELIAL CELL,UR FEW /LPF
[2019-09-12] MEDS ORDERED: DOCUSATE SODIUM 100 MG CAPSULE. PO PRN (18:30)
[2019-09-12] MEDS ORDERED: ACETAMINOPHEN 325 MG TABLET. PO PRN ×2 (18:30)
[2019-09-12] MEDS ORDERED: DEXTROSE 50% 25 GM / 50ML DISP.SYRIN. IV PRN (18:30)
[2019-09-12 20:30] VITALS: BP 132/96
[2019-09-12] MEDS ORDERED: HYDROcodone/APAP 5/325MG 1 TAB TABLET PO PRN (21:00)
[2019-09-12] MEDS: traZODone 50 MG TABLET. PO SCH (21:38)
[2019-09-12] MEDS: HALOPERIDOL 5 MG TABLET. PO SCH (21:38)
[2019-09-12] MEDS: METOCLOPRAMIDE ORAL SOLN 10 MG/10 ML SOLUTION. PO SCH (21:38)
[2019-09-12] MEDS: ONDANSETRON PF 4 MG/2 ML VIAL. IV PRN (21:39)
[2019-09-12] MEDS: INSULIN GLARGINE SYRINGE. SQ SCH (21:44)
[2019-09-12] MEDS: INSULIN LISPRO 300 UNITS/3 ML VIAL. SQ SCH (21:45)
--- NOTE | 2019-09-12 22:44 | PDOC1 ---
History and Physical Date of Admission Date of Admission DATE: 09/12/19 TIME: 22:43 Identification/Chief Complaint Chief Complaint Nausea, vomiting, abdominal pain Source Source: Chart review, Patient History of Present Illness History of Present Illness Mr Molina is a 24yo M w/ PMHx Type 1 DM, bilateral cataracts presented with some nausea and vomiting, had some associated diarrhea, has been occurring for a couple of days, describes as very irritating, and rated at 7/10. Went to stand up today and got dizzy and fell to the floor but he did not hurt himself or pass out. He states he did not hit his head. He states he has been drinking little sips of water here and there but he cannot keep any food down and he sometimes keeps the fluid down. He denies any abdominal pain, chest pain, shortness of air, dizziness at this time, headache, fever, diarrhea, numbness or tingling, focal weakness, vision changes. He states he had some water this morning and try to keep down some broth. He states he has not actually ate food for the last 5 days. He did smoke marijuana this morning. Patient states he has not "really" been taking his insulin due to he has not been eating any food. Currently only feels nauseated. Abdomen is soft and nontender. He vomited after ED attempted to feed him. Just admitted and discharged September 05 for DKA. He has had nausea and vomiting since the . He states that the day that he got out of the hospital he was better but after that he began with a nausea vomiting again. When doing orthostatics when patient stood up he became dizzy and his heart rate jumped to 140. After 1.5 L of normal saline patient's heart rate resting and laying down was in the 80s. When we had him stand up to jump to 118. There is no severe drop in blood pressure. Patient states he feels slightly better. Glucose 406, Bilirubin 1.4, Ca 10.4. Admit the patient for observation with IV fluids and p.r.n. antiemetics. Past Medical History Cardiovascular: Hyperlipidemia GI: No pertinent hx Heme/Onc: No pertinent hx Hepatobiliary: No pertinent hx Psych: Addictions Endocrine: Diabetes Past Surgical History Past Surgical History: Cataract Removal Family History Family History: Hypertension Social History Smoke: No ALCOHOL: none Drugs: Marijuana Current Problem List Problem List Problems Medical Problems: (1) Dehydration Status: Acute Current Medications Current Medications Current Medications Sodium Chloride 1,000 ml @ 1,000 mls/hr Q1H IV Last administered on 09/12/19at 16:12; Start 09/12/19 at 15:40; Stop 09/12/19 at 16:39; Status DC Ondansetron HCl (Zofran) 4 mg 1X ONCE IVP Last administered on 09/12/19at 16:12; Start 09/12/19 at 15:45; Stop 09/12/19 at 15:46; Status DC Insulin Human Regular (HumuLIN R VIAL) 10 unit 1X ONCE IV Last administered on 09/12/19at 17:20; Start 09/12/19 at 17:15; Stop 09/12/19 at 17:16; Status DC Sodium Chloride 1,000 ml @ 1,000 mls/hr 1X ONCE IV Last administered on 09/12/19at 17:19; Start 09/12/19 at 17:15; Stop 09/12/19 at 18:14; Status DC Acetaminophen (Tylenol) 650 mg PRN Q6HRS PRN PO pain or fever; Start 09/12/19 at 18:30; Status UNV Haloperidol (Haldol) 5 mg QHS PO Last administered on 09/12/19at 21:38; Start 09/12/19 at 21:00 Metoclopramide HCl (Reglan Oral Solution) 5 mg TIDACHC PO Last administered on 09/12/19at 21:38; Start 09/12/19 at 21:00 Trazodone HCl (Desyrel) 50 mg QHS PO Last administered on 09/12/19at 21:38; Start 09/12/19 at 21:00 Fluoxetine HCl (PROzac) 40 mg DAILYWBKFT PO ; Start 09/13/19 at 08:00 Insulin Glargine (Lantus Syringe) 20 unit QHS SQ Last administered on 09/12/19at 21:44; Start 09/12/19 at 21:00 Insulin Human Lispro (HumaLOG) 8 units TIDWMEALS SQ ; Start 09/13/19 at 08:00 Ondansetron HCl (Zofran) 4 mg PRN Q4HRS PRN IV NAUSEA/VOMITING Last administered on 09/12/19at 21:39; Start 09/12/19 at 18:30 Acetaminophen (Tylenol) 650 mg PRN Q4HRS PRN PO TEMP OVER 100.4F OR MILD PAIN; Start 09/12/19 at 18:30 Docusate Sodium (Colace) 100 mg PRN BID PRN PO HARD STOOLS; Start 09/12/19 at 18:30 Insulin Human Lispro (HumaLOG) 0-9 UNITS TIDACHC SQ Last administered on 09/12/19at 21:45; Start 09/12/19 at 21:00 Dextrose (Dextrose 50%-Water Syringe) 12.5 gm PRN Q15MIN PRN IV SEE COMMENTS; Start 09/12/19 at 18:30 Acetaminophen/ Hydrocodone Bitart (Lortab 5/325) 1 tab PRN Q6HRS PRN PO SEVERE PAIN 7-10 Last administered on 09/12/19at 21:38; Start 09/12/19 at 21:00 Morphine Sulfate (Morphine Sulfate) 2 mg PRN Q4HRS PRN IV SEVERE PAIN 7-10; Start 09/12/19 at 21:00 Active Scripts Active Metoclopramide Hcl 10 Mg/10 Ml Solution 5 Mg PO TIDACHC 30 Days Lantus Solostar (Insulin Glargine,Hum.rec.anlog) 100 Unit/1 Ml Insuln.pen 40 Units SQ QHS MDD 1 30 Days Humalog (Insulin Lispro) 100 Unit/1 Ml Cartridge 18 Unit SQ TIDBFRMEAL 30 Days + Sliding scale 2u for every 50mg/dL greater than 150. Reported Acetaminophen 325 Mg Tablet 2 Tab PO PRN Q6HRS PRN 24 Days Trazodone Hcl 50 Mg Tablet 1 Tab PO QHS Prozac (Fluoxetine Hcl) 40 Mg Capsule 1 Cap PO DAILYWBKFT Haloperidol 5 Mg Tablet 1 Tab PO QHS Allergies Allergies: Coded Allergies: No Known Drug Allergies (Unverified , 08/25/16) Physical Exam General: Alert, Oriented X3, Cooperative, moderate distress HEENT: Atraumatic, PERRLA, EOMI, Mucous membr. moist/pink Lungs: Clear to auscultation, Normal air movement Heart: S1S2, RRR, no thrills, no rubs, no gallops, no murmurs Abdomen: Normal bowel sounds, Soft, No tenderness, No hepatosplenomegaly, No masses Rectal Exam: not examined Extremities: No clubbing, No cyanosis, No edema, Normal pulses, No tenderness/swelling Skin: No rashes, No breakdown, No significant lesion Neuro: Normal gait, Normal speech, Strength at 5/5 X4 ext, Normal tone, Sensation intact, Cranial nerves 3-12 NL, Reflexes 2+ Psych/Mental Status: Mental status NL, Mood NL Vitals Vitals Vital Signs Date Time Temp Pulse Resp B/P (MAP) Pulse Ox O2 Delivery O2 Flow Rate FiO2 09/12/19 21:38 Room Air 09/12/19 20:30 98.4 76 18 132/96 (108) 100 98.4 Labs Labs Laboratory Tests Test 09/12/19 15:38 09/12/19 16:30 09/12/19 17:22 09/12/19 17:25 Glucose (Fingerstick) 364 mg/dL (70-99) White Blood Count 7.4 x10^3/uL (4.0-11.0) Red Blood Count 5.64 x10^6/uL (4.30-5.70) Hemoglobin 17.3 g/dL (13.0-17.5) Hematocrit 50.2 % (39.0-53.0) Mean Corpuscular Volume 89 fL (79-100) Mean Corpuscular Hemoglobin 31 pg (25-35) Mean Corpuscular Hemoglobin Concent 34 g/dL (31-37) Red Cell Distribution Width 13.4 % (11.5-14.5) Platelet Count 408 x10^3/uL (140-400) Neutrophils (%) (Auto) 54 % (31-73) Lymphocytes (%) (Auto) 39 % (24-48) Monocytes (%) (Auto) 6 % (0-9) Eosinophils (%) (Auto) 1 % (0-3) Basophils (%) (Auto) 1 % (0-3) Neutrophils # (Auto) 4.0 x10^3/uL (1.8-7.7) Lymphocytes # (Auto) 2.9 x10^3/uL (1.0-4.8) Monocytes # (Auto) 0.4 x10^3/uL (0.0-1.1) Eosinophils # (Auto) 0.0 x10^3/uL (0.0-0.7) Basophils # (Auto) 0.1 x10^3/uL (0.0-0.2) Prothrombin Time 13.4 SEC (11.7-14.0) Prothromb Time International Ratio 1.1 (0.8-1.1) Sodium Level 136 mmol/L (136-145) Potassium Level 4.1 mmol/L (3.5-5.1) Chloride Level 93 mmol/L (98-107) Carbon Dioxide Level 35 mmol/L (21-32) Anion Gap 8 (6-14) Blood Urea Nitrogen 16 mg/dL (8-26) Creatinine 1.5 mg/dL (0.7-1.3) Estimated GFR (Cockcroft-Gault) 69.6 BUN/Creatinine Ratio 11 (6-20) Glucose Level 406 mg/dL (70-99) Calcium Level 10.4 mg/dL (8.5-10.1) Total Bilirubin 1.4 mg/dL (0.2-1.0) Aspartate Amino Transf (AST/SGOT) 10 U/L (15-37) Alanine Aminotransferase (ALT/SGPT) 20 U/L (16-63) Alkaline Phosphatase 96 U/L (46-116) Troponin I Quantitative < 0.017 ng/mL (0.000-0.055) Total Protein 8.4 g/dL (6.4-8.2) Albumin 4.3 g/dL (3.4-5.0) Albumin/Globulin Ratio 1.0 (1.0-1.7) Lipase 126 U/L (73-393) Acetone Level Neg (NEG) Urine Collection Type Void Urine Color Yellow Urine Clarity Clear Urine pH 7.5 (<5.0-8.0) Urine Specific [place] >=1.030 (1.000-1.030) Urine Protein Negative mg/dL (NEG-TRACE) Urine Glucose (UA) >=1000 mg/dL (NEG) Urine Ketones (Stick) >=80 mg/dL (NEG) Urine Blood Negative (NEG) Urine Nitrite Negative (NEG) Urine Bilirubin Negative (NEG) Urine Urobilinogen Dipstick 1.0 mg/dL (0.2 mg/dL) Urine Leukocyte Esterase Negative (NEG) Urine RBC 0 /HPF (0-2) Urine WBC 1-4 /HPF (0-4) Urine Squamous Epithelial Cells Few /LPF Urine Bacteria Few /HPF (0-FEW) Urine Mucus Slight /LPF Urine Opiates Screen Neg (NEG) Urine Methadone Screen Neg (NEG) Urine Barbiturates Neg (NEG) Urine Phencyclidine Screen Neg (NEG) Urine Amphetamine/Methamphetamine Neg (NEG) Urine Benzodiazepines Screen Neg (NEG) Urine Cocaine Screen Neg (NEG) Urine Cannabinoids Screen Pos (NEG) Urine Ethyl Alcohol Neg (NEG) O2 Saturation 95 % (92-99) Arterial Blood pH 7.44 (7.35-7.45) Arterial Blood pCO2 at Patient Temp 44 mmHg (35-46) Arterial Blood pO2 at Patient Temp 77 mmHg (85-108) Arterial Blood HCO3 29 mmol/L (21-28) Arterial Blood Base Excess 4 mmol/L (-3-3) Oxyhemoglobin 93.8 % Methemoglobin 0.4 % (0.0-1.9) Carbon Monoxide, Quantitative 1.2 % (0.0-1.9) FiO2 21 Test 09/12/19 17:56 09/12/19 21:23 Glucose (Fingerstick) 358 mg/dL (70-99) 241 mg/dL (70-99) Laboratory Tests Test 09/12/19 15:38 09/12/19 16:30 09/12/19 17:22 09/12/19 17:25 Glucose (Fingerstick) 364 mg/dL (70-99) White Blood Count 7.4 x10^3/uL (4.0-11.0) Red Blood Count 5.64 x10^6/uL (4.30-5.70) Hemoglobin 17.3 g/dL (13.0-17.5) Hematocrit 50.2 % (39.0-53.0) Mean Corpuscular Volume 89 fL (79-100) Mean Corpuscular Hemoglobin 31 pg (25-35) Mean Corpuscular Hemoglobin Concent 34 g/dL (31-37) Red Cell Distribution Width 13.4 % (11.5-14.5) Platelet Count 408 x10^3/uL (140-400) Neutrophils (%) (Auto) 54 % (31-73) Lymphocytes (%) (Auto) 39 % (24-48) Monocytes (%) (Auto) 6 % (0-9) Eosinophils (%) (Auto) 1 % (0-3) Basophils (%) (Auto) 1 % (0-3) Neutrophils # (Auto) 4.0 x10^3/uL (1.8-7.7) Lymphocytes # (Auto) 2.9 x10^3/uL (1.0-4.8) Monocytes # (Auto) 0.4 x10^3/uL (0.0-1.1) Eosinophils # (Auto) 0.0 x10^3/uL (0.0-0.7) Basophils # (Auto) 0.1 x10^3/uL (0.0-0.2) Prothrombin Time 13.4 SEC (11.7-14.0) Prothromb Time International Ratio 1.1 (0.8-1.1) Sodium Level 136 mmol/L (136-145) Potassium Level 4.1 mmol/L (3.5-5.1) Chloride Level 93 mmol/L (98-107) Carbon Dioxide Level 35 mmol/L (21-32) Anion Gap 8 (6-14) Blood Urea Nitrogen 16 mg/dL (8-26) Creatinine 1.5 mg/dL (0.7-1.3) Estimated GFR (Cockcroft-Gault) 69.6 BUN/Creatinine Ratio 11 (6-20) Glucose Level 406 mg/dL (70-99) Calcium Level 10.4 mg/dL (8.5-10.1) Total Bilirubin 1.4 mg/dL (0.2-1.0) Aspartate Amino Transf (AST/SGOT) 10 U/L (15-37) Alanine Aminotransferase (ALT/SGPT) 20 U/L (16-63) Alkaline Phosphatase 96 U/L (46-116) Troponin I Quantitative < 0.017 ng/mL (0.000-0.055) Total Protein 8.4 g/dL (6.4-8.2) Albumin 4.3 g/dL (3.4-5.0) Albumin/Globulin Ratio 1.0 (1.0-1.7) Lipase 126 U/L (73-393) Acetone Level Neg (NEG) Urine Collection Type Void Urine Color Yellow Urine Clarity Clear Urine pH 7.5 (<5.0-8.0) Urine Specific [place] >=1.030 (1.000-1.030) Urine Protein Negative mg/dL (NEG-TRACE) Urine Glucose (UA) >=1000 mg/dL (NEG) Urine Ketones (Stick) >=80 mg/dL (NEG) Urine Blood Negative (NEG) Urine Nitrite Negative (NEG) Urine Bilirubin Negative (NEG) Urine Urobilinogen Dipstick 1.0 mg/dL (0.2 mg/dL) Urine Leukocyte Esterase Negative (NEG) Urine RBC 0 /HPF (0-2) Urine WBC 1-4 /HPF (0-4) Urine Squamous Epithelial Cells Few /LPF Urine Bacteria Few /HPF (0-FEW) Urine Mucus Slight /LPF Urine Opiates Screen Neg (NEG) Urine Methadone Screen Neg (NEG) Urine Barbiturates Neg (NEG) Urine Phencyclidine Screen Neg (NEG) Urine Amphetamine/Methamphetamine Neg (NEG) Urine Benzodiazepines Screen Neg (NEG) Urine Cocaine Screen Neg (NEG) Urine Cannabinoids Screen Pos (NEG) Urine Ethyl Alcohol Neg (NEG) O2 Saturation 95 % (92-99) Arterial Blood pH 7.44 (7.35-7.45) Arterial Blood pCO2 at Patient Temp 44 mmHg (35-46) Arterial Blood pO2 at Patient Temp 77 mmHg (85-108) Arterial Blood HCO3 29 mmol/L (21-28) Arterial Blood Base Excess 4 mmol/L (-3-3) Oxyhemoglobin 93.8 % Methemoglobin 0.4 % (0.0-1.9) Carbon Monoxide, Quantitative 1.2 % (0.0-1.9) FiO2 21 Test 09/12/19 17:56 09/12/19 21:23 Glucose (Fingerstick) 358 mg/dL (70-99) 241 mg/dL (70-99) VTE Prophylaxis Ordered VTE Prophylaxis Devices: No VTE Pharmacological Prophylaxi: Yes Assessment/Plan Assessment/Plan A/P: Intractable nausea and vomiting - likely gastroenteritis vs gastroparesis, required NPO for 24 hours, ADAT Hyperglycemia, ACUTE - resolved with IV insulin, antiemetics, can eat , started glargine 20 u and 8u TID lispro with meals with high sliding scale Hypercalcemia - Dehydrated Hyperbilirubinemia - constipated, will cont stool softeners Acute Renal insufficiency - vasomotor nephropathy NONCOMPLIANCE DUE TO LACK OF FUNDS THC ABUSE - counseled. Cataracts - s/p surgical correction DM1 - A1c is 15.5 this past 12/2018, repeat is 15.2 as of 04/2019, then 8.3 08/2019 FEN - NSS + ADA diet PPX - lovenox FULL CODE DIspo - inpatient for above PRASHANTH JAMES MD September 12, 2019 22:44
[2019-09-12 23:14] VITALS: BP 106/69
[2019-09-13] MEDS ORDERED: IV NORMAL SALINE 1000ML BAG 1,000 ML IV ONE
[2019-09-13] MEDS: ONDANSETRON PF 4 MG/2 ML VIAL. IV PRN ×2 (01:54→20:59)
[2019-09-13] MEDS: MORPHINE SULFATE 2 MG/ML VIAL. IV PRN ×2 (02:28→21:05)
[2019-09-13 03:20] LABS: ALBUMIN 3.5 g/dL (3.4-5.0); CALCIUM 8.8 mg/dL (8.5-10.1); CREATININE 1.2 mg/dL (0.7-1.3); MAGNESIUM 1.6 mg/dL (1.8-2.4); PHOSPHORUS 2.9 mg/dL (2.6-4.7)
[2019-09-13 03:26] VITALS: BP 132/78
[2019-09-13 03:40] LABS: POTASSIUM 2.9 mmol/L (3.5-5.1)
[2019-09-13] MEDS: POTASSIUM CHLORIDE 10MEQ 100 ML IV SCH ×4 (04:48→08:08)
[2019-09-13 07:00] VITALS: BP 124/81
[2019-09-13] MEDS: FLUoxetine HCL 20 MG CAPSULE PO SCH (08:08)
[2019-09-13] MEDS: METOCLOPRAMIDE ORAL SOLN 10 MG/10 ML SOLUTION. PO SCH (08:08)
[2019-09-13] MEDS: INSULIN LISPRO 300 UNITS/3 ML VIAL. SQ SCH ×7 (08:18→21:00)
[2019-09-13 10:21] LABS: CREATININE 1.3 mg/dL (0.7-1.3); GFR 82.1; POTASSIUM 3.2 mmol/L (3.5-5.1)
--- NOTE | 2019-09-13 10:21 | NUR ---
Izaiah has completed K+ bolus. denies complaints at this time. tolerated breakfast
--- NOTE | 2019-09-13 10:50 | PDOC ---
PROGRESS NOTES History of Present Illness History of Present Illness VTE Prophylaxis Ordered VTE Prophylaxis Devices: No VTE Pharmacological Prophylaxi: Yes Assessment/Plan IMPRESSION A/P: Intractable nausea and vomiting - likely gastroenteritis vs gastroparesis, required NPO for 24 hours, ADAT States he is had nausea and vomiting since the Hyperglycemia, ACUTE - resolved with IV insulin, antiemetics, can eat , started glargine 20 u and 8u TID lispro with meals with high sliding scale Hypercalcemia - Dehydrated Hyperbilirubinemia - constipated, will cont stool softeners Acute Renal insufficiency - vasomotor nephropathy NONCOMPLIANCE DUE TO LACK OF FUNDS THC ABUSE - counseled., may be contributing to vomiting Cataracts - s/p surgical correction DM1 - A1c is 15.5 this past 12/2018, repeat is 15.2 as of 04/2019, then 8.3 08/2019 FEN - NSS + ADA diet PPX - lovenox FULL CODE DIspo - inpatient for above gi consult iv fluid support 28 min pt exam, chart review, > 50% of time spent with exam, chart review, pt care coordination called sister [phone] no answer 09/12 Vitals Vitals Vital Signs Date Time Temp Pulse Resp B/P (MAP) Pulse Ox O2 Delivery O2 Flow Rate FiO2 09/13/19 08:00 Room Air 09/13/19 07:00 98.1 74 16 124/81 (95) 98 98.1 Physical Exam General: Alert, Oriented X3, Cooperative, moderate distress Lungs: Clear Abdomen: Normal bowel sounds, Soft, No tenderness, No hepatosplenomegaly, No masses Extremities: No clubbing, No cyanosis, No edema, Normal pulses, No tenderness/swelling Skin: No rashes, No breakdown, No significant lesion Labs LABS Laboratory Tests Test 09/12/19 15:38 09/12/19 16:30 09/12/19 17:22 09/12/19 17:25 Glucose (Fingerstick) 364 mg/dL (70-99) White Blood Count 7.4 x10^3/uL (4.0-11.0) Red Blood Count 5.64 x10^6/uL (4.30-5.70) Hemoglobin 17.3 g/dL (13.0-17.5) Hematocrit 50.2 % (39.0-53.0) Mean Corpuscular Volume 89 fL (79-100) Mean Corpuscular Hemoglobin 31 pg (25-35) Mean Corpuscular Hemoglobin Concent 34 g/dL (31-37) Red Cell Distribution Width 13.4 % (11.5-14.5) Platelet Count 408 x10^3/uL (140-400) Neutrophils (%) (Auto) 54 % (31-73) Lymphocytes (%) (Auto) 39 % (24-48) Monocytes (%) (Auto) 6 % (0-9) Eosinophils (%) (Auto) 1 % (0-3) Basophils (%) (Auto) 1 % (0-3) Neutrophils # (Auto) 4.0 x10^3/uL (1.8-7.7) Lymphocytes # (Auto) 2.9 x10^3/uL (1.0-4.8) Monocytes # (Auto) 0.4 x10^3/uL (0.0-1.1) Eosinophils # (Auto) 0.0 x10^3/uL (0.0-0.7) Basophils # (Auto) 0.1 x10^3/uL (0.0-0.2) Prothrombin Time 13.4 SEC (11.7-14.0) Prothromb Time International Ratio 1.1 (0.8-1.1) Sodium Level 136 mmol/L (136-145) Potassium Level 4.1 mmol/L (3.5-5.1) Chloride Level 93 mmol/L (98-107) Carbon Dioxide Level 35 mmol/L (21-32) Anion Gap 8 (6-14) Blood Urea Nitrogen 16 mg/dL (8-26) Creatinine 1.5 mg/dL (0.7-1.3) Estimated GFR (Cockcroft-Gault) 69.6 BUN/Creatinine Ratio 11 (6-20) Glucose Level 406 mg/dL (70-99) Calcium Level 10.4 mg/dL (8.5-10.1) Total Bilirubin 1.4 mg/dL (0.2-1.0) Aspartate Amino Transf (AST/SGOT) 10 U/L (15-37) Alanine Aminotransferase (ALT/SGPT) 20 U/L (16-63) Alkaline Phosphatase 96 U/L (46-116) Troponin I Quantitative < 0.017 ng/mL (0.000-0.055) Total Protein 8.4 g/dL (6.4-8.2) Albumin 4.3 g/dL (3.4-5.0) Albumin/Globulin Ratio 1.0 (1.0-1.7) Lipase 126 U/L (73-393) Acetone Level Neg (NEG) Urine Collection Type Void Urine Color Yellow Urine Clarity Clear Urine pH 7.5 (<5.0-8.0) Urine Specific [place] >=1.030 (1.000-1.030) Urine Protein Negative mg/dL (NEG-TRACE) Urine Glucose (UA) >=1000 mg/dL (NEG) Urine Ketones (Stick) >=80 mg/dL (NEG) Urine Blood Negative (NEG) Urine Nitrite Negative (NEG) Urine Bilirubin Negative (NEG) Urine Urobilinogen Dipstick 1.0 mg/dL (0.2 mg/dL) Urine Leukocyte Esterase Negative (NEG) Urine RBC 0 /HPF (0-2) Urine WBC 1-4 /HPF (0-4) Urine Squamous Epithelial Cells Few /LPF Urine Bacteria Few /HPF (0-FEW) Urine Mucus Slight /LPF Urine Opiates Screen Neg (NEG) Urine Methadone Screen Neg (NEG) Urine Barbiturates Neg (NEG) Urine Phencyclidine Screen Neg (NEG) Urine Amphetamine/Methamphetamine Neg (NEG) Urine Benzodiazepines Screen Neg (NEG) Urine Cocaine Screen Neg (NEG) Urine Cannabinoids Screen Pos (NEG) Urine Ethyl Alcohol Neg (NEG) O2 Saturation 95 % (92-99) Arterial Blood pH 7.44 (7.35-7.45) Arterial Blood pCO2 at Patient Temp 44 mmHg (35-46) Arterial Blood pO2 at Patient Temp 77 mmHg (85-108) Arterial Blood HCO3 29 mmol/L (21-28) Arterial Blood Base Excess 4 mmol/L (-3-3) Oxyhemoglobin 93.8 % Methemoglobin 0.4 % (0.0-1.9) Carbon Monoxide, Quantitative 1.2 % (0.0-1.9) FiO2 21 Test 09/12/19 17:56 09/12/19 21:23 09/13/19 02:18 09/13/19 08:07 Glucose (Fingerstick) 358 mg/dL (70-99) 241 mg/dL (70-99) 179 mg/dL (70-99) Sodium Level 139 mmol/L (136-145) Potassium Level 2.9 mmol/L (3.5-5.1) Chloride Level 99 mmol/L (98-107) Carbon Dioxide Level 33 mmol/L (21-32) Anion Gap 7 (6-14) Blood Urea Nitrogen 16 mg/dL (8-26) Creatinine 1.2 mg/dL (0.7-1.3) Estimated GFR (Cockcroft-Gault) 90.0 Glucose Level 222 mg/dL (70-99) Calcium Level 8.8 mg/dL (8.5-10.1) Phosphorus Level 2.9 mg/dL (2.6-4.7) Magnesium Level 1.6 mg/dL (1.8-2.4) Albumin 3.5 g/dL (3.4-5.0) Test 09/13/19 09:45 Sodium Level 141 mmol/L (136-145) Potassium Level 3.2 mmol/L (3.5-5.1) Chloride Level 99 mmol/L (98-107) Carbon Dioxide Level 33 mmol/L (21-32) Anion Gap 9 (6-14) Blood Urea Nitrogen 16 mg/dL (8-26) Creatinine 1.3 mg/dL (0.7-1.3) Estimated GFR (Cockcroft-Gault) 82.1 Glucose Level 121 mg/dL (70-99) Calcium Level 9.0 mg/dL (8.5-10.1) Assessment and Plan Assessmemt and Plan Problems Medical Problems: (1) Dehydration Status: Acute Comment Review of Relevant I have reviewed the following items grupo (where applicable) has been applied. Labs Laboratory Tests Test 09/12/19 15:38 09/12/19 16:30 09/12/19 17:22 09/12/19 17:25 Glucose (Fingerstick) 364 mg/dL (70-99) White Blood Count 7.4 x10^3/uL (4.0-11.0) Red Blood Count 5.64 x10^6/uL (4.30-5.70) Hemoglobin 17.3 g/dL (13.0-17.5) Hematocrit 50.2 % (39.0-53.0) Mean Corpuscular Volume 89 fL (79-100) Mean Corpuscular Hemoglobin 31 pg (25-35) Mean Corpuscular Hemoglobin Concent 34 g/dL (31-37) Red Cell Distribution Width 13.4 % (11.5-14.5) Platelet Count 408 x10^3/uL (140-400) Neutrophils (%) (Auto) 54 % (31-73) Lymphocytes (%) (Auto) 39 % (24-48) Monocytes (%) (Auto) 6 % (0-9) Eosinophils (%) (Auto) 1 % (0-3) Basophils (%) (Auto) 1 % (0-3) Neutrophils # (Auto) 4.0 x10^3/uL (1.8-7.7) Lymphocytes # (Auto) 2.9 x10^3/uL (1.0-4.8) Monocytes # (Auto) 0.4 x10^3/uL (0.0-1.1) Eosinophils # (Auto) 0.0 x10^3/uL (0.0-0.7) Basophils # (Auto) 0.1 x10^3/uL (0.0-0.2) Prothrombin Time 13.4 SEC (11.7-14.0) Prothromb Time International Ratio 1.1 (0.8-1.1) Sodium Level 136 mmol/L (136-145) Potassium Level 4.1 mmol/L (3.5-5.1) Chloride Level 93 mmol/L (98-107) Carbon Dioxide Level 35 mmol/L (21-32) Anion Gap 8 (6-14) Blood Urea Nitrogen 16 mg/dL (8-26) Creatinine 1.5 mg/dL (0.7-1.3) Estimated GFR (Cockcroft-Gault) 69.6 BUN/Creatinine Ratio 11 (6-20) Glucose Level 406 mg/dL (70-99) Calcium Level 10.4 mg/dL (8.5-10.1) Total Bilirubin 1.4 mg/dL (0.2-1.0) Aspartate Amino Transf (AST/SGOT) 10 U/L (15-37) Alanine Aminotransferase (ALT/SGPT) 20 U/L (16-63) Alkaline Phosphatase 96 U/L (46-116) Troponin I Quantitative < 0.017 ng/mL (0.000-0.055) Total Protein 8.4 g/dL (6.4-8.2) Albumin 4.3 g/dL (3.4-5.0) Albumin/Globulin Ratio 1.0 (1.0-1.7) Lipase 126 U/L (73-393) Acetone Level Neg (NEG) Urine Collection Type Void Urine Color Yellow Urine Clarity Clear Urine pH 7.5 (<5.0-8.0) Urine Specific [place] >=1.030 (1.000-1.030) Urine Protein Negative mg/dL (NEG-TRACE) Urine Glucose (UA) >=1000 mg/dL (NEG) Urine Ketones (Stick) >=80 mg/dL (NEG) Urine Blood Negative (NEG) Urine Nitrite Negative (NEG) Urine Bilirubin Negative (NEG) Urine Urobilinogen Dipstick 1.0 mg/dL (0.2 mg/dL) Urine Leukocyte Esterase Negative (NEG) Urine RBC 0 /HPF (0-2) Urine WBC 1-4 /HPF (0-4) Urine Squamous Epithelial Cells Few /LPF Urine Bacteria Few /HPF (0-FEW) Urine Mucus Slight /LPF Urine Opiates Screen Neg (NEG) Urine Methadone Screen Neg (NEG) Urine Barbiturates Neg (NEG) Urine Phencyclidine Screen Neg (NEG) Urine Amphetamine/Methamphetamine Neg (NEG) Urine Benzodiazepines Screen Neg (NEG) Urine Cocaine Screen Neg (NEG) Urine Cannabinoids Screen Pos (NEG) Urine Ethyl Alcohol Neg (NEG) O2 Saturation 95 % (92-99) Arterial Blood pH 7.44 (7.35-7.45) Arterial Blood pCO2 at Patient Temp 44 mmHg (35-46) Arterial Blood pO2 at Patient Temp 77 mmHg (85-108) Arterial Blood HCO3 29 mmol/L (21-28) Arterial Blood Base Excess 4 mmol/L (-3-3) Oxyhemoglobin 93.8 % Methemoglobin 0.4 % (0.0-1.9) Carbon Monoxide, Quantitative 1.2 % (0.0-1.9) FiO2 21 Test 09/12/19 17:56 09/12/19 21:23 09/13/19 02:18 09/13/19 08:07 Glucose (Fingerstick) 358 mg/dL (70-99) 241 mg/dL (70-99) 179 mg/dL (70-99) Sodium Level 139 mmol/L (136-145) Potassium Level 2.9 mmol/L (3.5-5.1) Chloride Level 99 mmol/L (98-107) Carbon Dioxide Level 33 mmol/L (21-32) Anion Gap 7 (6-14) Blood Urea Nitrogen 16 mg/dL (8-26) Creatinine 1.2 mg/dL (0.7-1.3) Estimated GFR (Cockcroft-Gault) 90.0 Glucose Level 222 mg/dL (70-99) Calcium Level 8.8 mg/dL (8.5-10.1) Phosphorus Level 2.9 mg/dL (2.6-4.7) Magnesium Level 1.6 mg/dL (1.8-2.4) Albumin 3.5 g/dL (3.4-5.0) Test 09/13/19 09:45 Sodium Level 141 mmol/L (136-145) Potassium Level 3.2 mmol/L (3.5-5.1) Chloride Level 99 mmol/L (98-107) Carbon Dioxide Level 33 mmol/L (21-32) Anion Gap 9 (6-14) Blood Urea Nitrogen 16 mg/dL (8-26) Creatinine 1.3 mg/dL (0.7-1.3) Estimated GFR (Cockcroft-Gault) 82.1 Glucose Level 121 mg/dL (70-99) Calcium Level 9.0 mg/dL (8.5-10.1) Laboratory Tests Test 09/12/19 15:38 09/12/19 16:30 09/12/19 17:22 09/12/19 17:25 Glucose (Fingerstick) 364 mg/dL (70-99) White Blood Count 7.4 x10^3/uL (4.0-11.0) Red Blood Count 5.64 x10^6/uL (4.30-5.70) Hemoglobin 17.3 g/dL (13.0-17.5) Hematocrit 50.2 % (39.0-53.0) Mean Corpuscular Volume 89 fL (79-100) Mean Corpuscular Hemoglobin 31 pg (25-35) Mean Corpuscular Hemoglobin Concent 34 g/dL (31-37) Red Cell Distribution Width 13.4 % (11.5-14.5) Platelet Count 408 x10^3/uL (140-400) Neutrophils (%) (Auto) 54 % (31-73) Lymphocytes (%) (Auto) 39 % (24-48) Monocytes (%) (Auto) 6 % (0-9) Eosinophils (%) (Auto) 1 % (0-3) Basophils (%) (Auto) 1 % (0-3) Neutrophils # (Auto) 4.0 x10^3/uL (1.8-7.7) Lymphocytes # (Auto) 2.9 x10^3/uL (1.0-4.8) Monocytes # (Auto) 0.4 x10^3/uL (0.0-1.1) Eosinophils # (Auto) 0.0 x10^3/uL (0.0-0.7) Basophils # (Auto) 0.1 x10^3/uL (0.0-0.2) Prothrombin Time 13.4 SEC (11.7-14.0) Prothromb Time International Ratio 1.1 (0.8-1.1) Sodium Level 136 mmol/L (136-145) Potassium Level 4.1 mmol/L (3.5-5.1) Chloride Level 93 mmol/L (98-107) Carbon Dioxide Level 35 mmol/L (21-32) Anion Gap 8 (6-14) Blood Urea Nitrogen 16 mg/dL (8-26) Creatinine 1.5 mg/dL (0.7-1.3) Estimated GFR (Cockcroft-Gault) 69.6 BUN/Creatinine Ratio 11 (6-20) Glucose Level 406 mg/dL (70-99) Calcium Level 10.4 mg/dL (8.5-10.1) Total Bilirubin 1.4 mg/dL (0.2-1.0) Aspartate Amino Transf (AST/SGOT) 10 U/L (15-37) Alanine Aminotransferase (ALT/SGPT) 20 U/L (16-63) Alkaline Phosphatase 96 U/L (46-116) Troponin I Quantitative < 0.017 ng/mL (0.000-0.055) Total Protein 8.4 g/dL (6.4-8.2) Albumin 4.3 g/dL (3.4-5.0) Albumin/Globulin Ratio 1.0 (1.0-1.7) Lipase 126 U/L (73-393) Acetone Level Neg (NEG) Urine Collection Type Void Urine Color Yellow Urine Clarity Clear Urine pH 7.5 (<5.0-8.0) Urine Specific [place] >=1.030 (1.000-1.030) Urine Protein Negative mg/dL (NEG-TRACE) Urine Glucose (UA) >=1000 mg/dL (NEG) Urine Ketones (Stick) >=80 mg/dL (NEG) Urine Blood Negative (NEG) Urine Nitrite Negative (NEG) Urine Bilirubin Negative (NEG) Urine Urobilinogen Dipstick 1.0 mg/dL (0.2 mg/dL) Urine Leukocyte Esterase Negative (NEG) Urine RBC 0 /HPF (0-2) Urine WBC 1-4 /HPF (0-4) Urine Squamous Epithelial Cells Few /LPF Urine Bacteria Few /HPF (0-FEW) Urine Mucus Slight /LPF Urine Opiates Screen Neg (NEG) Urine Methadone Screen Neg (NEG) Urine Barbiturates Neg (NEG) Urine Phencyclidine Screen Neg (NEG) Urine Amphetamine/Methamphetamine Neg (NEG) Urine Benzodiazepines Screen Neg (NEG) Urine Cocaine Screen Neg (NEG) Urine Cannabinoids Screen Pos (NEG) Urine Ethyl Alcohol Neg (NEG) O2 Saturation 95 % (92-99) Arterial Blood pH 7.44 (7.35-7.45) Arterial Blood pCO2 at Patient Temp 44 mmHg (35-46) Arterial Blood pO2 at Patient Temp 77 mmHg (85-108) Arterial Blood HCO3 29 mmol/L (21-28) Arterial Blood Base Excess 4 mmol/L (-3-3) Oxyhemoglobin 93.8 % Methemoglobin 0.4 % (0.0-1.9) Carbon Monoxide, Quantitative 1.2 % (0.0-1.9) FiO2 21 Test 09/12/19 17:56 09/12/19 21:23 09/13/19 02:18 09/13/19 08:07 Glucose (Fingerstick) 358 mg/dL (70-99) 241 mg/dL (70-99) 179 mg/dL (70-99) Sodium Level 139 mmol/L (136-145) Potassium Level 2.9 mmol/L (3.5-5.1) Chloride Level 99 mmol/L (98-107) Carbon Dioxide Level 33 mmol/L (21-32) Anion Gap 7 (6-14) Blood Urea Nitrogen 16 mg/dL (8-26) Creatinine 1.2 mg/dL (0.7-1.3) Estimated GFR (Cockcroft-Gault) 90.0 Glucose Level 222 mg/dL (70-99) Calcium Level 8.8 mg/dL (8.5-10.1) Phosphorus Level 2.9 mg/dL (2.6-4.7) Magnesium Level 1.6 mg/dL (1.8-2.4) Albumin 3.5 g/dL (3.4-5.0) Test 09/13/19 09:45 Sodium Level 141 mmol/L (136-145) Potassium Level 3.2 mmol/L (3.5-5.1) Chloride Level 99 mmol/L (98-107) Carbon Dioxide Level 33 mmol/L (21-32) Anion Gap 9 (6-14) Blood Urea Nitrogen 16 mg/dL (8-26) Creatinine 1.3 mg/dL (0.7-1.3) Estimated GFR (Cockcroft-Gault) 82.1 Glucose Level 121 mg/dL (70-99) Calcium Level 9.0 mg/dL (8.5-10.1) Medications Current Medications Sodium Chloride 1,000 ml @ 1,000 mls/hr Q1H IV Last administered on 09/12/19 16:12; Start 09/12/19 at 15:40; Stop 09/12/19 at 16:39; Status DC Ondansetron HCl (Zofran) 4 mg 1X ONCE IVP Last administered on 09/12/19at 16:12; Start 09/12/19 at 15:45; Stop 09/12/19 at 15:46; Status DC Insulin Human Regular (HumuLIN R VIAL) 10 unit 1X ONCE IV Last administered on 09/12/19at 17:20; Start 09/12/19 at 17:15; Stop 09/12/19 at 17:16; Status DC Sodium Chloride 1,000 ml @ 1,000 mls/hr 1X ONCE IV Last administered on 08/18 10/06at 17:19; Start 09/12/19 at 17:15; Stop 09/12/19 at 18:14; Status DC Acetaminophen (Tylenol) 650 mg PRN Q6HRS PRN PO pain or fever; Start 09/12/19 at 18:30; Status UNV Haloperidol (Haldol) 5 mg QHS PO Last administered on 09/12/19 21:38; Start 09/12/19 at 21:00 Metoclopramide HCl (Reglan Oral Solution) 5 mg TIDACHC PO Last administered on 09/13/19 08:08; Start 09/12/19 at 21:00 Trazodone HCl (Desyrel) 50 mg QHS PO Last administered on 09/12/19 21:38; Start 09/12/19 at 21:00 Fluoxetine HCl (PROzac) 40 mg DAILYWBKFT PO Last administered on 09/13/19 08:08; Start 09/13/19 at 08:00 Insulin Glargine (Lantus Syringe) 20 unit QHS SQ Last administered on 09/12/19at 21:44; Start 09/12/19 at 21:00 Insulin Human Lispro (HumaLOG) 8 units TIDWMEALS SQ Last administered on 09/13/19 08:19; Start 09/13/19 at 08:00 Ondansetron HCl (Zofran) 4 mg PRN Q4HRS PRN IV NAUSEA/VOMITING Last a dministered on 09/13/19at 01:54; Start 09/12/19 at 18:30 Acetaminophen (Tylenol) 650 mg PRN Q4HRS PRN PO TEMP OVER 100.4F OR MILD PAIN; Start 09/12/19 at 18:30 Docusate Sodium (Colace) 100 mg PRN BID PRN PO HARD STOOLS; Start 09/12/19 at 18:30 Insulin Human Lispro (HumaLOG) 0-9 UNITS TIDACHC SQ Last administered on 09/13/19 08:18; Start 09/12/19 at 21:00 Dextrose (Dextrose 50%-Water Syringe) 12.5 gm PRN Q15MIN PRN IV SEE COMMENTS; Start 09/12/19 at 18:30 Acetaminophen/ Hydrocodone Bitart (Lortab 5/325) 1 tab PRN Q6HRS PRN PO SEVERE PAIN 7-10 Last administered on 09/12/19 21:38; Start 09/12/19 at 21:00 Morphine Sulfate (Morphine Sulfate) 2 mg PRN Q4HRS PRN IV SEVERE PAIN 7-10 Last administered on 09/13/19at 02:28; Start 09/12/19 at 21:00 Sodium Chloride 1,000 ml @ 75 mls/hr 1X ONCE IV Last administered on 09/13/19at 00:29; Start 09/13/19 at 00:00; Stop 09/13/19 at 13:19 Potassium Chloride/Water 100 ml @ 100 mls/hr Q1H IV Last administered on 09/13/19at 08:08; Start 09/13/19 at 05:00; Stop 09/13/19 at 08:59; Status DC Active Scripts Active Metoclopramide Hcl 10 Mg/10 Ml Solution 5 Mg PO TIDACHC 30 Days Lantus Solostar (Insulin Glargine,Hum.rec.anlog) 100 Unit/1 Ml Insuln.pen 40 Units SQ QHS MDD 1 30 Days Humalog (Insulin Lispro) 100 Unit/1 Ml Cartridge 18 Unit SQ TIDBFRMEAL 30 Days + Sliding scale 2u for every 50mg/dL greater than 150. Reported Acetaminophen 325 Mg Tablet 2 Tab PO PRN Q6HRS PRN 24 Days Trazodone Hcl 50 Mg Tablet 1 Tab PO QHS Prozac (Fluoxetine Hcl) 40 Mg Capsule 1 Cap PO DAILYWBKFT Haloperidol 5 Mg Tablet 1 Tab PO QHS Vitals/I & O Vital Sign - Last 24 Hours 09/12/19 09/12/19 09/12/19 09/12/19 15:31 16:30 17:05 17:57 Temp 98.6 98.6 Pulse 79 78 74 80 Resp 18 18 18 18 B/P (MAP) 120/72 (88) 116/77 (90) 120/75 (90) 108/55 (72) Pulse Ox 100 97 99 99 O2 Delivery Room Air Room Air Room Air Room Air 09/12/19 09/12/19 09/12/19 09/12/19 18:05 18:35 19:05 19:35 Pulse 78 78 77 92 Resp 18 18 11 26 B/P (MAP) 124/74 (91) 120/78 (92) 124/79 (94) 143/89 (107) Pulse Ox 99 99 98 98 O2 Delivery Room Air Room Air Room Air Room Air 09/12/19 09/12/19 09/12/19/26/20 20:05 20:30 20:30 21:38 Temp 98.4 98.4 Pulse 92 76 Resp 23 18 B/P (MAP) 143/99 (114) 132/96 (108) Pulse Ox 98 100 O2 Delivery Room Air Room Air Room Air Room Air 09/12/19 09/12/19 09/13/19 09/13/19 22:38 23:14 02:28 03:01 Temp 98.7 98.7 Pulse 89 Resp 18 B/P (MAP) 106/69 (81) Pulse Ox 99 O2 Delivery Room Air Room Air Room Air Room Air 09/13/19 09/13/19 09/13/19 03:26 07:00 08:00 Temp 98.6 98.1 98.6 98.1 Pulse 68 74 Resp 18 16 B/P (MAP) 132/78 (96) 124/81 (95) Pulse Ox 97 98 O2 Delivery Room Air Room Air Room Air Intake and Output 09/12/19 09/12/19 09/13/19 15:00 23:00 07:00 Intake Total 2000 ml 1190 ml Output Total 1600 ml Balance 2000 ml -410 ml JIE SALGUERO MD September 13, 2019 10:50
[2019-09-13] MEDS ORDERED: POTASSIUM CHLORIDE 20 MEQ TABLET.ER. PO ONE (11:00)
[2019-09-13 11:06] VITALS: BP 107/53
--- NOTE | 2019-09-13 11:54 | PDOC2 ---
GI CONSULT Reason For Consult: Nausea, vomiting HPI: HPI: 24 y/o male with recurrent nausea and vomiting. Seen by us in May with similar issues though then recovering from DKA. Was recently in here for DKA again and went home 09/05. Says N and V every day since to point of volume depletion and orthostatic symptoms. Denies abdominal pain with this. No h/o heartburn or other dyspepsia. Smokes marijuana daily though says "cutting down" . Denies viral prodrome or real diarrhea. Not in DKA currently. No PUD, GB, liver or pancreatic history. Smokes tobacco as well. No alcohol use. Denies constipation, overt blood in stool, melena or hematemesis. GIFH positive for pancreatic cancer in mother, otherwise negative. PMH: PMH: DM1, cataracts/blindness, depression, hyperlipidemia. S/p ECCE. FH: Family History: Cancer (pancreatic/mother), Hypertension Social History: ALCOHOL: none Drugs: Marijuana ROS: GEN: Denies fevers, chills, sweats HEENT: Denies blurred vision, sore throat CV: Denies chest pain RESP: Denies shortness of air, cough GI: Per HPI : Denies hematuria, dysuria ENDO: Denies weight changes NEURO: Denies confusion, dizziness MSK: Denies weakness, joint pain/swelling SKIN: Denies jaundice, pruritus Vitals: Vitals: Vital Signs Date Time Temp Pulse Resp B/P (MAP) Pulse Ox O2 Delivery O2 Flow Rate FiO2 09/13/19 11:06 97.8 77 16 107/53 (71) 98 Room Air 97.8 Labs: Labs: Laboratory Tests Test 09/12/19 15:38 09/12/19 16:30 09/12/19 17:22 09/12/19 17:25 Glucose (Fingerstick) 364 mg/dL (70-99) White Blood Count 7.4 x10^3/uL (4.0-11.0) Red Blood Count 5.64 x10^6/uL (4.30-5.70) Hemoglobin 17.3 g/dL (13.0-17.5) Hematocrit 50.2 % (39.0-53.0) Mean Corpuscular Volume 89 fL (79-100) Mean Corpuscular Hemoglobin 31 pg (25-35) Mean Corpuscular Hemoglobin Concent 34 g/dL (31-37) Red Cell Distribution Width 13.4 % (11.5-14.5) Platelet Count 408 x10^3/uL (140-400) Neutrophils (%) (Auto) 54 % (31-73) Lymphocytes (%) (Auto) 39 % (24-48) Monocytes (%) (Auto) 6 % (0-9) Eosinophils (%) (Auto) 1 % (0-3) Basophils (%) (Auto) 1 % (0-3) Neutrophils # (Auto) 4.0 x10^3/uL (1.8-7.7) Lymphocytes # (Auto) 2.9 x10^3/uL (1.0-4.8) Monocytes # (Auto) 0.4 x10^3/uL (0.0-1.1) Eosinophils # (Auto) 0.0 x10^3/uL (0.0-0.7) Basophils # (Auto) 0.1 x10^3/uL (0.0-0.2) Prothrombin Time 13.4 SEC (11.7-14.0) Prothromb Time International Ratio 1.1 (0.8-1.1) Sodium Level 136 mmol/L (136-145) Potassium Level 4.1 mmol/L (3.5-5.1) Chloride Level 93 mmol/L (98-107) Carbon Dioxide Level 35 mmol/L (21-32) Anion Gap 8 (6-14) Blood Urea Nitrogen 16 mg/dL (8-26) Creatinine 1.5 mg/dL (0.7-1.3) Estimated GFR (Cockcroft-Gault) 69.6 BUN/Creatinine Ratio 11 (6-20) Glucose Level 406 mg/dL (70-99) Calcium Level 10.4 mg/dL (8.5-10.1) Total Bilirubin 1.4 mg/dL (0.2-1.0) Aspartate Amino Transf (AST/SGOT) 10 U/L (15-37) Alanine Aminotransferase (ALT/SGPT) 20 U/L (16-63) Alkaline Phosphatase 96 U/L (46-116) Troponin I Quantitative < 0.017 ng/mL (0.000-0.055) Total Protein 8.4 g/dL (6.4-8.2) Albumin 4.3 g/dL (3.4-5.0) Albumin/Globulin Ratio 1.0 (1.0-1.7) Lipase 126 U/L (73-393) Acetone Level Neg (NEG) Urine Collection Type Void Urine Color Yellow Urine Clarity Clear Urine pH 7.5 (<5.0-8.0) Urine Specific [place] >=1.030 (1.000-1.030) Urine Protein Negative mg/dL (NEG-TRACE) Urine Glucose (UA) >=1000 mg/dL (NEG) Urine Ketones (Stick) >=80 mg/dL (NEG) Urine Blood Negative (NEG) Urine Nitrite Negative (NEG) Urine Bilirubin Negative (NEG) Urine Urobilinogen Dipstick 1.0 mg/dL (0.2 mg/dL) Urine Leukocyte Esterase Negative (NEG) Urine RBC 0 /HPF (0-2) Urine WBC 1-4 /HPF (0-4) Urine Squamous Epithelial Cells Few /LPF Urine Bacteria Few /HPF (0-FEW) Urine Mucus Slight /LPF Urine Opiates Screen Neg (NEG) Urine Methadone Screen Neg (NEG) Urine Barbiturates Neg (NEG) Urine Phencyclidine Screen Neg (NEG) Urine Amphetamine/Methamphetamine Neg (NEG) Urine Benzodiazepines Screen Neg (NEG) Urine Cocaine Screen Neg (NEG) Urine Cannabinoids Screen Pos (NEG) Urine Ethyl Alcohol Neg (NEG) O2 Saturation 95 % (92-99) Arterial Blood pH 7.44 (7.35-7.45) Arterial Blood pCO2 at Patient Temp 44 mmHg (35-46) Arterial Blood pO2 at Patient Temp 77 mmHg (85-108) Arterial Blood HCO3 29 mmol/L (21-28) Arterial Blood Base Excess 4 mmol/L (-3-3) Oxyhemoglobin 93.8 % Methemoglobin 0.4 % (0.0-1.9) Carbon Monoxide, Quantitative 1.2 % (0.0-1.9) FiO2 21 Test 09/12/19 17:56 09/12/19 21:23 09/13/19 02:18 09/13/19 08:07 Glucose (Fingerstick) 358 mg/dL (70-99) 241 mg/dL (70-99) 179 mg/dL (70-99) Sodium Level 139 mmol/L (136-145) Potassium Level 2.9 mmol/L (3.5-5.1) Chloride Level 99 mmol/L (98-107) Carbon Dioxide Level 33 mmol/L (21-32) Anion Gap 7 (6-14) Blood Urea Nitrogen 16 mg/dL (8-26) Creatinine 1.2 mg/dL (0.7-1.3) Estimated GFR (Cockcroft-Gault) 90.0 Glucose Level 222 mg/dL (70-99) Calcium Level 8.8 mg/dL (8.5-10.1) Phosphorus Level 2.9 mg/dL (2.6-4.7) Magnesium Level 1.6 mg/dL (1.8-2.4) Albumin 3.5 g/dL (3.4-5.0) Test 09/13/19 09:45 09/13/19 11:26 Sodium Level 141 mmol/L (136-145) Potassium Level 3.2 mmol/L (3.5-5.1) Chloride Level 99 mmol/L (98-107) Carbon Dioxide Level 33 mmol/L (21-32) Anion Gap 9 (6-14) Blood Urea Nitrogen 16 mg/dL (8-26) Creatinine 1.3 mg/dL (0.7-1.3) Estimated GFR (Cockcroft-Gault) 82.1 Glucose Level 121 mg/dL (70-99) Calcium Level 9.0 mg/dL (8.5-10.1) Glucose (Fingerstick) 79 mg/dL (70-99) Ketonuria at presentation w/o DKA. Tox screen positive for MJ as in the past. Allergies: Coded Allergies: No Known Drug Allergies (Unverified , 08/25/16) Medications: Current Medications Medications (Trade) Dose Ordered Sig/Stephanie Route PRN Reason Start Time Stop Time Status Last Admin Dose Admin Sodium Chloride 1,000 ml @ 1,000 mls/hr Q1H IV 09/12/19 15:40 09/12/19 16:39 DC 09/12/19 16:12 Ondansetron HCl (Zofran) 4 mg 1X ONCE IVP 09/12/19 15:45 09/12/19 15:46 DC 09/12/19 16:12 Insulin Human Regular (HumuLIN R VIAL) 10 unit 1X ONCE IV 09/12/19 17:15 09/12/19 17:16 DC 09/12/19 17:20 Sodium Chloride 1,000 ml @ 1,000 mls/hr 1X ONCE IV 09/12/19 17:15 09/12/19 18:14 DC 09/12/19 17:19 Haloperidol (Haldol) 5 mg QHS PO 09/12/19 21:00 09/12/19 21:38 Metoclopramide HCl (Reglan Oral Solution) 5 mg TIDACHC PO 09/12/19 21:00 09/13/19 08:08 Trazodone HCl (Desyrel) 50 mg QHS PO 09/12/19 21:00 09/12/19 21:38 Fluoxetine HCl (PROzac) 40 mg DAILYWBKFT PO 09/13/19 08:00 09/13/19 08:08 Insulin Glargine (Lantus Syringe) 20 unit QHS SQ 09/12/19 21:00 09/12/19 21:44 Insulin Human Lispro (HumaLOG) 8 units TIDWMEALS SQ 09/13/19 08:00 09/13/19 08:19 Ondansetron HCl (Zofran) 4 mg PRN Q4HRS PRN IV NAUSEA/VOMITING 09/12/19 18:30 09/13/19 01:54 Insulin Human Lispro (HumaLOG) 0-9 UNITS TIDACHC SQ 09/12/19 21:00 09/13/19 08:18 Acetaminophen/ Hydrocodone Bitart (Lortab 5/325) 1 tab PRN Q6HRS PRN PO SEVERE PAIN 7-10 09/12/19 21:00 09/12/19 21:38 Morphine Sulfate (Morphine Sulfate) 2 mg PRN Q4HRS PRN IV SEVERE PAIN 7-10 09/12/19 21:00 09/13/19 02:28 Sodium Chloride 1,000 ml @ 75 mls/hr 1X ONCE IV 09/13/19 00:00 09/13/19 13:19 09/13/19 00:29 Potassium Chloride/Water 100 ml @ 100 mls/hr Q1H IV 09/13/19 05:00 09/13/19 08:59 DC 09/13/19 08:08 Imaging: Imaging: Prior CT was normal. PE: GEN: NAD HEENT: Atraumatic, blind LUNGS: CTAB HEART: RRR, no murmurs ABD: NABS, S/ND/NT, no masses EXTREMITY: No edema SKIN: No rashes, no jaundice NEURO/PSYCH: A & O 3 A/P: A/P: IMP: Recurrent N and V. Can't r/o viral issue, but seems less likely w/o other symptoms. CHS, CVS, gastroparesis main differentials. REC: Will order GES. If abnormal will r/o CVS. Cannibis has variable effects on gastric emptying so hard to separate from diabetic gastroparesis if abnormal study. Trial off MJ only diagnostic ploy. Other pending. Thanks. DESIRE WITT MD September 13, 2019 11:54
[2019-09-13] MEDS: IV NORMAL SALINE 1000ML BAG 1,000 ML IV SCH (13:02)
--- NOTE | 2019-09-13 13:46 | NUR ---
SS following for discharge planning. SS reviewed pt chart and discussed with pt RN. Pt is from home and is currently on room air. SS will continue to follow for discharge planning.
[2019-09-13 15:00] VITALS: BP 122/72
[2019-09-13 19:37] VITALS: BP 134/95
[2019-09-13] MEDS: HALOPERIDOL 5 MG TABLET. PO SCH (21:05)
[2019-09-13] MEDS: traZODone 50 MG TABLET. PO SCH (21:05)
[2019-09-13] MEDS: INSULIN GLARGINE SYRINGE. SQ SCH (21:09)
[2019-09-13 22:37] VITALS: BP 140/88
[2019-09-14] VITALS (7 sets, daily range): BP systolic 104–135; BP diastolic 64–87
[2019-09-14] MEDS: IV NORMAL SALINE 1000ML BAG 1,000 ML IV SCH ×3 (04:45→20:00)
[2019-09-14 04:52] LABS: BASO # 0.1 x10^3/uL (0.0-0.2); BASO % 1 % (0-3); EOS # 0.1 x10^3/uL (0.0-0.7); EOS % 2 % (0-3); HEMATOCRIT 38.1 % (39.0-53.0); HEMOGLOBIN 13.1 g/dL (13.0-17.5); LYMPH # 3.6 x10^3/uL (1.0-4.8); LYMPH % 52 % (24-48); MEAN CORPUSCULAR HEMOGLOBIN 30 pg (25-35); MEAN CORPUSCULAR HGB CONC 34 g/dL (31-37); MEAN CORPUSCULAR VOLUME 89 fL (79-100); MONO # 0.5 x10^3/uL (0.0-1.1); MONO % 7 % (0-9); NEUT # 2.7 x10^3/uL (1.8-7.7); NEUT % 39 % (31-73); PLATELET COUNT 342 x10^3/uL (140-400); RED CELL DISTRIBUTION WIDTH 13.4 % (11.5-14.5)
[2019-09-14 05:04] LABS: ALBUMIN 2.9 g/dL (3.4-5.0); CALCIUM 8.5 mg/dL (8.5-10.1); CREATININE 1.1 mg/dL (0.7-1.3); GFR 99.5; POTASSIUM 3.7 mmol/L (3.5-5.1); TOTAL BILIRUBIN 0.8 mg/dL (0.2-1.0); TOTAL PROTEIN 5.9 g/dL (6.4-8.2)
[2019-09-14] MEDS: INSULIN LISPRO 300 UNITS/3 ML VIAL. SQ SCH ×7 (07:30→21:06)
[2019-09-14] MEDS: FLUoxetine HCL 20 MG CAPSULE PO SCH (08:00)
[2019-09-14] MEDS: POTASSIUM CHLORIDE 20 MEQ TABLET.ER. PO SCH (08:00)
[2019-09-14] MEDS: ONDANSETRON PF 4 MG/2 ML VIAL. IV PRN (08:14)
--- NOTE | 2019-09-14 08:55 | PDOC ---
PROGRESS NOTES Chief Complaint Chief Complaint A/P: Intractable nausea and vomiting - likely gastroenteritis vs gastroparesis, required NPO for 24 hours, ADAT States he is had nausea and vomiting since the Hyperglycemia, ACUTE - resolved with IV insulin, antiemetics, can eat , started glargine 20 u and 8u TID lispro with meals with high sliding scale Hypercalcemia - Dehydrated Hyperbilirubinemia - constipated, will cont stool softeners Acute Renal insufficiency - vasomotor nephropathy NONCOMPLIANCE DUE TO LACK OF FUNDS THC ABUSE - counseled., may be contributing to vomiting Cataracts - s/p surgical correction DM1 - A1c is 15.5 this past 12/2018, repeat is 15.2 as of 04/2019, then 8.3 08/2019 FEN - NSS + ADA diet PPX - lovenox FULL CODE DIspo - inpatient for above gi consult iv fluid support 28 min pt exam, chart review, > 50% of time spent with exam, chart review, pt care coordination History of Present Illness History of Present Illness Mr Molian is a 24yo M w/ PMHx Type 1 DM, bilateral cataracts presented with some nausea and vomiting, had some associated diarrhea, has been occurring for a couple of days, describes as very irritating, and rated at 7/10. Went to stand up today and got dizzy and fell to the floor but he did not hurt himself or pass out. He states he did not hit his head. He states he has been drinking little sips of water here and there but he cannot keep any food down and he sometimes keeps the fluid down. He denies any abdominal pain, chest pain, shortness of air, dizziness at this time, headache, fever, diarrhea, numbness or tingling, focal weakness, vision changes. He states he had some water this morning and try to keep down some broth. He states he has not actually ate food for the last 5 days. He did smoke marijuana this morning. Patient states he has not "really" been taking his insulin due to he has not been eating any food. Currently only feels nauseated. Abdomen is soft and nontender. He vomited after ED attempted to feed him. Just admitted and discharged September 05 for DKA. He has had nausea and vomiting since the . He states that the day that he got out of the hospital he was better but after that he began with a nausea vomiting again. When doing orthostatics when patient stood up he became dizzy and his heart rate jumped to 140. After 1.5 L of normal saline patient's heart rate resting and laying down was in the 80s. When we had him stand up to jump to 118. There is no severe drop in blood pressure. Patient states he feels slightly better. Glucose 406, Bilirubin 1.4, Ca 10.4. Admit the patient for observation with IV fluids and p.r.n. antiemetics. 09/12: called sister [phone] no answer. Still vomiting. Able to eat overnight, however this morning he vomited after the eggs for his gastric emptying study. Glycemic control improved. Labs improved. currently he has nausea. No chest pain or shortness of breath. He is still struggling with self-care and is considering long-term care again. Vitals Vitals Vital Signs Date Time Temp Pulse Resp B/P (MAP) Pulse Ox O2 Delivery O2 Flow Rate FiO2 09/14/19 07:00 98.0 62 18 104/69 (81) 100 Room Air 98.0 Physical Exam General: Alert, Oriented X3, Cooperative, moderate distress Lungs: Clear Abdomen: Normal bowel sounds, Soft, No tenderness, No hepatosplenomegaly, No masses Extremities: No clubbing, No cyanosis, No edema, Normal pulses, No tenderness/swelling Skin: No rashes, No breakdown, No significant lesion Labs LABS Laboratory Tests Test 09/13/19 09:45 09/13/19 11:26 09/13/19 16:33 09/13/19 21:02 Sodium Level 141 mmol/L (136-145) Potassium Level 3.2 mmol/L (3.5-5.1) Chloride Level 99 mmol/L (98-107) Carbon Dioxide Level 33 mmol/L (21-32) Anion Gap 9 (6-14) Blood Urea Nitrogen 16 mg/dL (8-26) Creatinine 1.3 mg/dL (0.7-1.3) Estimated GFR (Cockcroft-Gault) 82.1 Glucose Level 121 mg/dL (70-99) Calcium Level 9.0 mg/dL (8.5-10.1) Glucose (Fingerstick) 79 mg/dL (70-99) 298 mg/dL (70-99) 94 mg/dL (70-99) Test 09/14/19 04:19 09/14/19 07:23 White Blood Count 7.0 x10^3/uL (4.0-11.0) Red Blood Count 4.30 x10^6/uL (4.30-5.70) Hemoglobin 13.1 g/dL (13.0-17.5) Hematocrit 38.1 % (39.0-53.0) Mean Corpuscular Volume 89 fL (79-100) Mean Corpuscular Hemoglobin 30 pg (25-35) Mean Corpuscular Hemoglobin Concent 34 g/dL (31-37) Red Cell Distribution Width 13.4 % (11.5-14.5) Platelet Count 342 x10^3/uL (140-400) Neutrophils (%) (Auto) 39 % (31-73) Lymphocytes (%) (Auto) 52 % (24-48) Monocytes (%) (Auto) 7 % (0-9) Eosinophils (%) (Auto) 2 % (0-3) Basophils (%) (Auto) 1 % (0-3) Neutrophils # (Auto) 2.7 x10^3/uL (1.8-7.7) Lymphocytes # (Auto) 3.6 x10^3/uL (1.0-4.8) Monocytes # (Auto) 0.5 x10^3/uL (0.0-1.1) Eosinophils # (Auto) 0.1 x10^3/uL (0.0-0.7) Basophils # (Auto) 0.1 x10^3/uL (0.0-0.2) Sodium Level 137 mmol/L (136-145) Potassium Level 3.7 mmol/L (3.5-5.1) Chloride Level 104 mmol/L (98-107) Carbon Dioxide Level 27 mmol/L (21-32) Anion Gap 6 (6-14) Blood Urea Nitrogen 13 mg/dL (8-26) Creatinine 1.1 mg/dL (0.7-1.3) Estimated GFR (Cockcroft-Gault) 99.5 BUN/Creatinine Ratio 12 (6-20) Glucose Level 145 mg/dL (70-99) Calcium Level 8.5 mg/dL (8.5-10.1) Total Bilirubin 0.8 mg/dL (0.2-1.0) Aspartate Amino Transf (AST/SGOT) 10 U/L (15-37) Alanine Aminotransferase (ALT/SGPT) 9 U/L (16-63) Alkaline Phosphatase 66 U/L (46-116) Total Protein 5.9 g/dL (6.4-8.2) Albumin 2.9 g/dL (3.4-5.0) Albumin/Globulin Ratio 1.0 (1.0-1.7) Glucose (Fingerstick) 101 mg/dL (70-99) Assessment and Plan Assessmemt and Plan Problems Medical Problems: (1) Dehydration Status: Acute Comment Review of Relevant I have reviewed the following items grupo (where applicable) has been applied. Labs Laboratory Tests Test 09/12/19 15:38 09/12/19 16:30 09/12/19 17:22 09/12/19 17:25 Glucose (Fingerstick) 364 mg/dL (70-99) White Blood Count 7.4 x10^3/uL (4.0-11.0) Red Blood Count 5.64 x10^6/uL (4.30-5.70) Hemoglobin 17.3 g/dL (13.0-17.5) Hematocrit 50.2 % (39.0-53.0) Mean Corpuscular Volume 89 fL (79-100) Mean Corpuscular Hemoglobin 31 pg (25-35) Mean Corpuscular Hemoglobin Concent 34 g/dL (31-37) Red Cell Distribution Width 13.4 % (11.5-14.5) Platelet Count 408 x10^3/uL (140-400) Neutrophils (%) (Auto) 54 % (31-73) Lymphocytes (%) (Auto) 39 % (24-48) Monocytes (%) (Auto) 6 % (0-9) Eosinophils (%) (Auto) 1 % (0-3) Basophils (%) (Auto) 1 % (0-3) Neutrophils # (Auto) 4.0 x10^3/uL (1.8-7.7) Lymphocytes # (Auto) 2.9 x10^3/uL (1.0-4.8) Monocytes # (Auto) 0.4 x10^3/uL (0.0-1.1) Eosinophils # (Auto) 0.0 x10^3/uL (0.0-0.7) Basophils # (Auto) 0.1 x10^3/uL (0.0-0.2) Prothrombin Time 13.4 SEC (11.7-14.0) Prothromb Time International Ratio 1.1 (0.8-1.1) Sodium Level 136 mmol/L (136-145) Potassium Level 4.1 mmol/L (3.5-5.1) Chloride Level 93 mmol/L (98-107) Carbon Dioxide Level 35 mmol/L (21-32) Anion Gap 8 (6-14) Blood Urea Nitrogen 16 mg/dL (8-26) Creatinine 1.5 mg/dL (0.7-1.3) Estimated GFR (Cockcroft-Gault) 69.6 BUN/Creatinine Ratio 11 (6-20) Glucose Level 406 mg/dL (70-99) Calcium Level 10.4 mg/dL (8.5-10.1) Total Bilirubin 1.4 mg/dL (0.2-1.0) Aspartate Amino Transf (AST/SGOT) 10 U/L (15-37) Alanine Aminotransferase (ALT/SGPT) 20 U/L (16-63) Alkaline Phosphatase 96 U/L (46-116) Troponin I Quantitative < 0.017 ng/mL (0.000-0.055) Total Protein 8.4 g/dL (6.4-8.2) Albumin 4.3 g/dL (3.4-5.0) Albumin/Globulin Ratio 1.0 (1.0-1.7) Lipase 126 U/L (73-393) Acetone Level Neg (NEG) Urine Collection Type Void Urine Color Yellow Urine Clarity Clear Urine pH 7.5 (<5.0-8.0) Urine Specific [place] >=1.030 (1.000-1.030) Urine Protein Negative mg/dL (NEG-TRACE) Urine Glucose (UA) >=1000 mg/dL (NEG) Urine Ketones (Stick) >=80 mg/dL (NEG) Urine Blood Negative (NEG) Urine Nitrite Negative (NEG) Urine Bilirubin Negative (NEG) Urine Urobilinogen Dipstick 1.0 mg/dL (0.2 mg/dL) Urine Leukocyte Esterase Negative (NEG) Urine RBC 0 /HPF (0-2) Urine WBC 1-4 /HPF (0-4) Urine Squamous Epithelial Cells Few /LPF Urine Bacteria Few /HPF (0-FEW) Urine Mucus Slight /LPF Urine Opiates Screen Neg (NEG) Urine Methadone Screen Neg (NEG) Urine Barbiturates Neg (NEG) Urine Phencyclidine Screen Neg (NEG) Urine Amphetamine/Methamphetamine Neg (NEG) Urine Benzodiazepines Screen Neg (NEG) Urine Cocaine Screen Neg (NEG) Urine Cannabinoids Screen Pos (NEG) Urine Ethyl Alcohol Neg (NEG) O2 Saturation 95 % (92-99) Arterial Blood pH 7.44 (7.35-7.45) Arterial Blood pCO2 at Patient Temp 44 mmHg (35-46) Arterial Blood pO2 at Patient Temp 77 mmHg (85-108) Arterial Blood HCO3 29 mmol/L (21-28) Arterial Blood Base Excess 4 mmol/L (-3-3) Oxyhemoglobin 93.8 % Methemoglobin 0.4 % (0.0-1.9) Carbon Monoxide, Quantitative 1.2 % (0.0-1.9) FiO2 21 Test 09/12/19 17:56 09/12/19 21:23 09/13/19 02:18 09/13/19 08:07 Glucose (Fingerstick) 358 mg/dL (70-99) 241 mg/dL (70-99) 179 mg/dL (70-99) Sodium Level 139 mmol/L (136-145) Potassium Level 2.9 mmol/L (3.5-5.1) Chloride Level 99 mmol/L (98-107) Carbon Dioxide Level 33 mmol/L (21-32) Anion Gap 7 (6-14) Blood Urea Nitrogen 16 mg/dL (8-26) Creatinine 1.2 mg/dL (0.7-1.3) Estimated GFR (Cockcroft-Gault) 90.0 Glucose Level 222 mg/dL (70-99) Calcium Level 8.8 mg/dL (8.5-10.1) Phosphorus Level 2.9 mg/dL (2.6-4.7) Magnesium Level 1.6 mg/dL (1.8-2.4) Albumin 3.5 g/dL (3.4-5.0) Test 09/13/19 09:45 09/13/19 11:26 09/13/19 16:33 09/13/19 21:02 Sodium Level 141 mmol/L (136-145) Potassium Level 3.2 mmol/L (3.5-5.1) Chloride Level 99 mmol/L (98-107) Carbon Dioxide Level 33 mmol/L (21-32) Anion Gap 9 (6-14) Blood Urea Nitrogen 16 mg/dL (8-26) Creatinine 1.3 mg/dL (0.7-1.3) Estimated GFR (Cockcroft-Gault) 82.1 Glucose Level 121 mg/dL (70-99) Calcium Level 9.0 mg/dL (8.5-10.1) Glucose (Fingerstick) 79 mg/dL (70-99) 298 mg/dL (70-99) 94 mg/dL (70-99) Test 09/14/19 04:19 09/14/19 07:23 White Blood Count 7.0 x10^3/uL (4.0-11.0) Red Blood Count 4.30 x10^6/uL (4.30-5.70) Hemoglobin 13.1 g/dL (13.0-17.5) Hematocrit 38.1 % (39.0-53.0) Mean Corpuscular Volume 89 fL (79-100) Mean Corpuscular Hemoglobin 30 pg (25-35) Mean Corpuscular Hemoglobin Concent 34 g/dL (31-37) Red Cell Distribution Width 13.4 % (11.5-14.5) Platelet Count 342 x10^3/uL (140-400) Neutrophils (%) (Auto) 39 % (31-73) Lymphocytes (%) (Auto) 52 % (24-48) Monocytes (%) (Auto) 7 % (0-9) Eosinophils (%) (Auto) 2 % (0-3) Basophils (%) (Auto) 1 % (0-3) Neutrophils # (Auto) 2.7 x10^3/uL (1.8-7.7) Lymphocytes # (Auto) 3.6 x10^3/uL (1.0-4.8) Monocytes # (Auto) 0.5 x10^3/uL (0.0-1.1) Eosinophils # (Auto) 0.1 x10^3/uL (0.0-0.7) Basophils # (Auto) 0.1 x10^3/uL (0.0-0.2) Sodium Level 137 mmol/L (136-145) Potassium Level 3.7 mmol/L (3.5-5.1) Chloride Level 104 mmol/L (98-107) Carbon Dioxide Level 27 mmol/L (21-32) Anion Gap 6 (6-14) Blood Urea Nitrogen 13 mg/dL (8-26) Creatinine 1.1 mg/dL (0.7-1.3) Estimated GFR (Cockcroft-Gault) 99.5 BUN/Creatinine Ratio 12 (6-20) Glucose Level 145 mg/dL (70-99) Calcium Level 8.5 mg/dL (8.5-10.1) Total Bilirubin 0.8 mg/dL (0.2-1.0) Aspartate Amino Transf (AST/SGOT) 10 U/L (15-37) Alanine Aminotransferase (ALT/SGPT) 9 U/L (16-63) Alkaline Phosphatase 66 U/L (46-116) Total Protein 5.9 g/dL (6.4-8.2) Albumin 2.9 g/dL (3.4-5.0) Albumin/Globulin Ratio 1.0 (1.0-1.7) Glucose (Fingerstick) 101 mg/dL (70-99) Laboratory Tests Test 09/13/19 09:45 09/13/19 11:26 09/13/19 16:33 09/13/19 21:02 Sodium Level 141 mmol/L (136-145) Potassium Level 3.2 mmol/L (3.5-5.1) Chloride Level 99 mmol/L (98-107) Carbon Dioxide Level 33 mmol/L (21-32) Anion Gap 9 (6-14) Blood Urea Nitrogen 16 mg/dL (8-26) Creatinine 1.3 mg/dL (0.7-1.3) Estimated GFR (Cockcroft-Gault) 82.1 Glucose Level 121 mg/dL (70-99) Calcium Level 9.0 mg/dL (8.5-10.1) Glucose (Fingerstick) 79 mg/dL (70-99) 298 mg/dL (70-99) 94 mg/dL (70-99) Test 09/14/19 04:19 09/14/19 07:23 White Blood Count 7.0 x10^3/uL (4.0-11.0) Red Blood Count 4.30 x10^6/uL (4.30-5.70) Hemoglobin 13.1 g/dL (13.0-17.5) Hematocrit 38.1 % (39.0-53.0) Mean Corpuscular Volume 89 fL (79-100) Mean Corpuscular Hemoglobin 30 pg (25-35) Mean Corpuscular Hemoglobin Concent 34 g/dL (31-37) Red Cell Distribution Width 13.4 % (11.5-14.5) Platelet Count 342 x10^3/uL (140-400) Neutrophils (%) (Auto) 39 % (31-73) Lymphocytes (%) (Auto) 52 % (24-48) Monocytes (%) (Auto) 7 % (0-9) Eosinophils (%) (Auto) 2 % (0-3) Basophils (%) (Auto) 1 % (0-3) Neutrophils # (Auto) 2.7 x10^3/uL (1.8-7.7) Lymphocytes # (Auto) 3.6 x10^3/uL (1.0-4.8) Monocytes # (Auto) 0.5 x10^3/uL (0.0-1.1) Eosinophils # (Auto) 0.1 x10^3/uL (0.0-0.7) Basophils # (Auto) 0.1 x10^3/uL (0.0-0.2) Sodium Level 137 mmol/L (136-145) Potassium Level 3.7 mmol/L (3.5-5.1) Chloride Level 104 mmol/L (98-107) Carbon Dioxide Level 27 mmol/L (21-32) Anion Gap 6 (6-14) Blood Urea Nitrogen 13 mg/dL (8-26) Creatinine 1.1 mg/dL (0.7-1.3) Estimated GFR (Cockcroft-Gault) 99.5 BUN/Creatinine Ratio 12 (6-20) Glucose Level 145 mg/dL (70-99) Calcium Level 8.5 mg/dL (8.5-10.1) Total Bilirubin 0.8 mg/dL (0.2-1.0) Aspartate Amino Transf (AST/SGOT) 10 U/L (15-37) Alanine Aminotransferase (ALT/SGPT) 9 U/L (16-63) Alkaline Phosphatase 66 U/L (46-116) Total Protein 5.9 g/dL (6.4-8.2) Albumin 2.9 g/dL (3.4-5.0) Albumin/Globulin Ratio 1.0 (1.0-1.7) Glucose (Fingerstick) 101 mg/dL (70-99) Medications Current Medications Sodium Chloride 1,000 ml @ 1,000 mls/hr Q1H IV Last administered on 09/12/19at 16:12; Start 09/12/19 at 15:40; Stop 09/12/19 at 16:39; Status DC Ondansetron HCl (Zofran) 4 mg 1X ONCE IVP Last administered on 09/12/19at 16:12; Start 09/12/19 at 15:45; Stop 09/12/19 at 15:46; Status DC Insulin Human Regular (HumuLIN R VIAL) 10 unit 1X ONCE IV Last administered on 09/12/19at 17:20; Start 09/12/19 at 17:15; Stop 09/12/19 at 17:16; Status DC Sodium Chloride 1,000 ml @ 1,000 mls/hr 1X ONCE IV Last administered on 09/12/19at 17:19; Start 09/12/19 at 17:15; Stop 09/12/19 at 18:14; Status DC Acetaminophen (Tylenol) 650 mg PRN Q6HRS PRN PO pain or fever; Start 09/12/19 at 18:30; Status UNV Haloperidol (Haldol) 5 mg QHS PO Last administered on 09/13/19at 21:05; Start 09/12/19 at 21:00 Metoclopramide HCl (Reglan Oral Solution) 5 mg TIDACHC PO Last administered on 09/13/19at 08:08; Start 09/12/19 at 21:00; Stop 09/13/19 at 11:56; Status DC Trazodone HCl (Desyrel) 50 mg QHS PO Last administered on 09/13/19at 21:05; Start 09/12/19 at 21:00 Fluoxetine HCl (PROzac) 40 mg DAILYWBKFT PO Last administered on 09/13/19at 08:08; Start 09/13/19 at 08:00 Insulin Glargine (Lantus Syringe) 20 unit QHS SQ Last administered on 09/13/19 21:09; Start 09/12/19 at 21:00 Insulin Human Lispro (HumaLOG) 8 units TIDWMEALS SQ Last administered on 09/13/19at 16:57; Start 09/13/19 at 08:00 Ondansetron HCl (Zofran) 4 mg PRN Q4HRS PRN IV NAUSEA/VOMITING Last administered on 09/14/19at 08:14; Start 09/12/19 at 18:30 Acetaminophen (Tylenol) 650 mg PRN Q4HRS PRN PO TEMP OVER 100.4F OR MILD PAIN; Start 09/12/19 at 18:30 Docusate Sodium (Colace) 100 mg PRN BID PRN PO HARD STOOLS; Start 09/12/19 at 18:30 Insulin Human Lispro (HumaLOG) 0-9 UNITS TIDACHC SQ Last administered on 09/13/19at 16:56; Start 09/12/19 at 21:00 Dextrose (Dextrose 50%-Water Syringe) 12.5 gm PRN Q15MIN PRN IV SEE COMMENTS; Start 09/12/19 at 18:30 Acetaminophen/ Hydrocodone Bitart (Lortab 5/325) 1 tab PRN Q6HRS PRN PO SEVERE PAIN 7-10 Last administered on 09/12/19at 21:38; Start 09/12/19 at 21:00 Morphine Sulfate (Morphine Sulfate) 2 mg PRN Q4HRS PRN IV SEVERE PAIN 7-10 Last administered on 09/13/19at 21:05; Start 09/12/19 at 21:00 Sodium Chloride 1,000 ml @ 75 mls/hr 1X ONCE IV Last administered on 09/13/19at 00:29; Start 09/13/19 at 00:00; Stop 09/13/19 at 13:19; Status DC Potassium Chloride/Water 100 ml @ 100 mls/hr Q1H IV Last administered on 09/13/19at 08:08; Start 09/13/19 at 05:00; Stop 09/13/19 at 08:59; Status DC Sodium Chloride 1,000 ml @ 100 mls/hr Q10H IV Last administered on 09/14/19at 04:45; Start 09/13/19 at 11:00 Potassium Chloride (Klor-Con) 40 meq 1X ONCE PO Last administered on 09/13/19at 12:23; Start 09/13/19 at 11:00; Stop 09/13/19 at 11:01; Status DC Potassium Chloride (Klor-Con) 20 meq DAILYWBKFT PO ; Start 09/14/19 at 08:00 Active Scripts Active Metoclopramide Hcl 10 Mg/10 Ml Solution 5 Mg PO TIDACHC 30 Days Lantus Solostar (Insulin Glargine,Hum.rec.anlog) 100 Unit/1 Ml Insuln.pen 40 Units SQ QHS MDD 1 30 Days Humalog (Insulin Lispro) 100 Unit/1 Ml Cartridge 18 Unit SQ TIDBFRMEAL 30 Days + Sliding scale 2u for every 50mg/dL greater than 150. Reported Acetaminophen 325 Mg Tablet 2 Tab PO PRN Q6HRS PRN 24 Days Trazodone Hcl 50 Mg Tablet 1 Tab PO QHS Prozac (Fluoxetine Hcl) 40 Mg Capsule 1 Cap PO DAILYWBKFT Haloperidol 5 Mg Tablet 1 Tab PO QHS Vitals/I & O Vital Sign - Last 24 Hours 09/13/19 09/13/19 09/13/19 09/13/19 11:06 15:00 19:37 19:55 Temp 97.8 98.1 99.3 97.8 98.1 99.3 Pulse 77 80 90 Resp 16 16 18 B/P (MAP) 107/53 (71) 122/72 (89) 134/95 (108) Pulse Ox 98 100 100 O2 Delivery Room Air Room Air Room Air Room Air 09/13/19 09/13/19 09/13/19 09/14/19 21:05 21:35 22:37 02:50 Temp 98.8 98.1 98.8 98.1 Pulse 93 78 Resp 20 20 18 18 B/P (MAP) 140/88 (105) 120/64 (82) Pulse Ox 98 99 O2 Delivery Room Air Room Air Room Air Room Air 09/14/19 07:00 Temp 98.0 98.0 Pulse 62 Resp 18 B/P (MAP) 104/69 (81) Pulse Ox 100 O2 Delivery Room Air Intake and Output 09/13/19 09/13/19 09/14/19 15:00 23:00 07:00 Intake Total 200 ml 2125 ml Balance 200 ml 2125 ml PRASHANTH JAMES MD September 14, 2019 08:55
--- NOTE | 2019-09-14 10:46 | PDOC ---
Subjective: Subjective: Vomited eggs for GES. Ate chicken strips and carrots yesterday. Otherwise doesn't offer much. Objective: Objective: D/w nurse - received in report he ate all night. Had head CT in 2019. Vital Signs: Vital Signs Date Time Temp Pulse Resp B/P (MAP) Pulse Ox O2 Delivery O2 Flow Rate FiO2 09/14/19 07:00 98.0 62 18 104/69 (81) 100 Room Air 98.0 Labs: Laboratory Tests Test 09/13/19 11:26 09/13/19 16:33 09/13/19 21:02 09/14/19 04:19 Glucose (Fingerstick) 79 mg/dL 298 mg/dL 94 mg/dL White Blood Count 7.0 x10^3/uL Red Blood Count 4.30 x10^6/uL Hemoglobin 13.1 g/dL Hematocrit 38.1 % Mean Corpuscular Volume 89 fL Mean Corpuscular Hemoglobin 30 pg Mean Corpuscular Hemoglobin Concent 34 g/dL Red Cell Distribution Width 13.4 % Platelet Count 342 x10^3/uL Neutrophils (%) (Auto) 39 % Lymphocytes (%) (Auto) 52 % Monocytes (%) (Auto) 7 % Eosinophils (%) (Auto) 2 % Basophils (%) (Auto) 1 % Neutrophils # (Auto) 2.7 x10^3/uL Lymphocytes # (Auto) 3.6 x10^3/uL Monocytes # (Auto) 0.5 x10^3/uL Eosinophils # (Auto) 0.1 x10^3/uL Basophils # (Auto) 0.1 x10^3/uL Sodium Level 137 mmol/L Potassium Level 3.7 mmol/L Chloride Level 104 mmol/L Carbon Dioxide Level 27 mmol/L Anion Gap 6 Blood Urea Nitrogen 13 mg/dL Creatinine 1.1 mg/dL Estimated GFR (Cockcroft-Gault) 99.5 BUN/Creatinine Ratio 12 Glucose Level 145 mg/dL Calcium Level 8.5 mg/dL Total Bilirubin 0.8 mg/dL Aspartate Amino Transf (AST/SGOT) 10 U/L Alanine Aminotransferase (ALT/SGPT) 9 U/L Alkaline Phosphatase 66 U/L Total Protein 5.9 g/dL Albumin 2.9 g/dL Albumin/Globulin Ratio 1.0 Test 09/14/19 07:23 Glucose (Fingerstick) 101 mg/dL Imaging: GES 09/13 cancelled 2/2 vomiting PE: GEN: NAD LUNGS: CTAB HEART: RRR ABD: soft - emesis basin w/ bilious contents, eggs NEURO/PSYCH: A & O 3, flat A/P: Recurrent n/v DM - A1c 8.5 08/2019 +cannabinoids -- Can retry GES tomorrow? - will review w/ Dr. Phelps. Add acid-clinical data research - IV for now. Back off on diet for now considering recurrent vomiting. Hemodynamically unstable?: No Is patient in severe pain?: No Is NPO status required?: No HAO TRAYLOR September 14, 2019 10:46
[2019-09-14] MEDS: PANTOPRAZOLE IV PUSH 40 MG VIAL. IVP SCH (11:33)
--- NOTE | 2019-09-14 16:04 | NUR ---
SS following up with discharge planning. SS reviewed pt chart and discussed with pt RN. Pt is currently on room air. Discharge plan is to home when medically stable. SS will continue to follow for discharge planning.
--- NOTE | 2019-09-14 16:52 | NUR ---
Insulin held no calories consumed, FSBS 88
[2019-09-14] MEDS: HALOPERIDOL 5 MG TABLET. PO SCH (20:58)
[2019-09-14] MEDS: traZODone 50 MG TABLET. PO SCH (20:59)
[2019-09-14] MEDS: INSULIN GLARGINE SYRINGE. SQ SCH (21:06)
[2019-09-15 03:24] VITALS: BP 125/83
[2019-09-15] MEDS: IV NORMAL SALINE 1000ML BAG 1,000 ML IV SCH (04:00)
[2019-09-15 05:02] LABS: ALBUMIN 2.8 g/dL (3.4-5.0); CALCIUM 8.2 mg/dL (8.5-10.1); CREATININE 1.3 mg/dL (0.7-1.3); GFR 82.1; MAGNESIUM 1.3 mg/dL (1.8-2.4); POTASSIUM 3.8 mmol/L (3.5-5.1)
[2019-09-15 07:00] VITALS: BP 125/70
[2019-09-15] MEDS: INSULIN LISPRO 300 UNITS/3 ML VIAL. SQ SCH ×4 (07:30→13:35)
[2019-09-15] MEDS: POTASSIUM CHLORIDE 20 MEQ TABLET.ER. PO SCH (08:00)
[2019-09-15] MEDS: FLUoxetine HCL 20 MG CAPSULE PO SCH (08:00)
--- NOTE | 2019-09-15 08:34 | PDOC ---
PROGRESS NOTES Chief Complaint Chief Complaint A/P: Intractable nausea and vomiting - likely gastroenteritis vs gastroparesis, required NPO for 24 hours, ADAT States he is had nausea and vomiting since the Hyperglycemia, ACUTE - resolved with IV insulin, antiemetics, can eat , started glargine 20 u and 8u TID lispro with meals with high sliding scale Hypercalcemia - Dehydrated Hyperbilirubinemia - constipated, will cont stool softeners Acute Renal insufficiency - vasomotor nephropathy NONCOMPLIANCE DUE TO LACK OF FUNDS THC ABUSE - counseled., may be contributing to vomiting Cataracts - s/p surgical correction DM1 - A1c is 15.5 this past 12/2018, repeat is 15.2 as of 04/2019, then 8.3 08/2019 FEN - NSS + ADA diet PPX - lovenox FULL CODE DIspo - inpatient for above gi consult iv fluid support 28 min pt exam, chart review, > 50% of time spent with exam, chart review, pt care coordination History of Present Illness History of Present Illness Mr Molina is a 24yo M w/ PMHx Type 1 DM, bilateral cataracts presented with some nausea and vomiting, had some associated diarrhea, has been occurring for a couple of days, describes as very irritating, and rated at 7/10. Went to stand up today and got dizzy and fell to the floor but he did not hurt himself or pass out. He states he did not hit his head. He states he has been drinking little sips of water here and there but he cannot keep any food down and he sometimes keeps the fluid down. He denies any abdominal pain, chest pain, shortness of air, dizziness at this time, headache, fever, diarrhea, numbness or tingling, focal weakness, vision changes. He states he had some water this morning and try to keep down some broth. He states he has not actually ate food for the last 5 days. He did smoke marijuana this morning. Patient states he has not "really" been taking his insulin due to he has not been eating any food. Currently only feels nauseated. Abdomen is soft and nontender. He vomited after ED attempted to feed him. Just admitted and discharged September 05 for DKA. He has had nausea and vomiting since the . He states that the day that he got out of the hospital he was better but after that he began with a nausea vomiting again. When doing orthostatics when patient stood up he became dizzy and his heart rate jumped to 140. After 1.5 L of normal saline patient's heart rate resting and laying down was in the 80s. When we had him stand up to jump to 118. There is no severe drop in blood pressure. Patient states he feels slightly better. Glucose 406, Bilirubin 1.4, Ca 10.4. Admit the patient for observation with IV fluids and p.r.n. antiemetics. 09/12: called sister [phone] no answer. Still vomiting. 09/13: Able to eat overnight, however this morning he vomited after the eggs for his gastric emptying study. Glycemic control improved. Labs improved. cu rrently he has nausea. No chest pain or shortness of breath. He is still struggling with self-care and is considering long-term care again. Afebrile overnight, magnesium 1.3. Glucose less than 200. GS normal at 4 hours, however delayed 2 hours. Will go back on the Reglan needs refills on his insulin, has been educated on the fact that he needs to administer his Lantus even if he is not taking any food as he is type 1 insulin-dependent. He tells me he needs a new glucometer he was given a glucometer prescription and renewed home health on discharge. Vitals Vitals Vital Signs Date Time Temp Pulse Resp B/P (MAP) Pulse Ox O2 Delivery O2 Flow Rate FiO2 09/15/19 07:00 98.0 76 18 125/70 (88) 100 Room Air 98.0 Physical Exam General: Alert, Oriented X3, Cooperative, moderate distress Lungs: Clear Abdomen: Normal bowel sounds, Soft, No tenderness, No hepatosplenomegaly, No masses Extremities: No clubbing, No cyanosis, No edema, Normal pulses, No tenderness /swelling Skin: No rashes, No breakdown, No significant lesion Labs LABS Laboratory Tests Test 09/14/19 11:29 09/14/19 16:44 09/14/19 21:00 09/15/19 04:00 Glucose (Fingerstick) 116 mg/dL (70-99) 88 mg/dL (70-99) 243 mg/dL (70-99) Sodium Level 141 mmol/L (136-145) Potassium Level 3.8 mmol/L (3.5-5.1) Chloride Level 105 mmol/L (98-107) Carbon Dioxide Level 27 mmol/L (21-32) Anion Gap 9 (6-14) Blood Urea Nitrogen 11 mg/dL (8-26) Creatinine 1.3 mg/dL (0.7-1.3) Estimated GFR (Cockcroft-Gault) 82.1 Glucose Level 193 mg/dL (70-99) Calcium Level 8.2 mg/dL (8.5-10.1) Phosphorus Level 4.0 mg/dL (2.6-4.7) Magnesium Level 1.3 mg/dL (1.8-2.4) Albumin 2.8 g/dL (3.4-5.0) Test 09/15/19 07:43 Glucose (Fingerstick) 181 mg/dL (70-99) Assessment and Plan Assessmemt and Plan Problems Medical Problems: (1) Dehydration Status: Acute Comment Review of Relevant I have reviewed the following items grupo (where applicable) has been applied. Labs Laboratory Tests Test 09/13/19 09:45 09/13/19 11:26 09/13/19 16:33 09/13/19 21:02 Sodium Level 141 mmol/L (136-145) Potassium Level 3.2 mmol/L (3.5-5.1) Chloride Level 99 mmol/L (98-107) Carbon Dioxide Level 33 mmol/L (21-32) Anion Gap 9 (6-14) Blood Urea Nitrogen 16 mg/dL (8-26) Creatinine 1.3 mg/dL (0.7-1.3) Estimated GFR (Cockcroft-Gault) 82.1 Glucose Level 121 mg/dL (70-99) Calcium Level 9.0 mg/dL (8.5-10.1) Glucose (Fingerstick) 79 mg/dL (70-99) 298 mg/dL (70-99) 94 mg/dL (70-99) Test 09/14/19 04:19 09/14/19 07:23 09/14/19 11:29 09/14/19 16:44 White Blood Count 7.0 x10^3/uL (4.0-11.0) Red Blood Count 4.30 x10^6/uL (4.30-5.70) Hemoglobin 13.1 g/dL (13.0-17.5) Hematocrit 38.1 % (39.0-53.0) Mean Corpuscular Volume 89 fL (79-100) Mean Corpuscular Hemoglobin 30 pg (25-35) Mean Corpuscular Hemoglobin Concent 34 g/dL (31-37) Red Cell Distribution Width 13.4 % (11.5-14.5) Platelet Count 342 x10^3/uL (140-400) Neutrophils (%) (Auto) 39 % (31-73) Lymphocytes (%) (Auto) 52 % (24-48) Monocytes (%) (Auto) 7 % (0-9) Eosinophils (%) (Auto) 2 % (0-3) Basophils (%) (Auto) 1 % (0-3) Neutrophils # (Auto) 2.7 x10^3/uL (1.8-7.7) Lymphocytes # (Auto) 3.6 x10^3/uL (1.0-4.8) Monocytes # (Auto) 0.5 x10^3/uL (0.0-1.1) Eosinophils # (Auto) 0.1 x10^3/uL (0.0-0.7) Basophils # (Auto) 0.1 x10^3/uL (0.0-0.2) Sodium Level 137 mmol/L (136-145) Potassium Level 3.7 mmol/L (3.5-5.1) Chloride Level 104 mmol/L (98-107) Carbon Dioxide Level 27 mmol/L (21-32) Anion Gap 6 (6-14) Blood Urea Nitrogen 13 mg/dL (8-26) Creatinine 1.1 mg/dL (0.7-1.3) Estimated GFR (Cockcroft-Gault) 99.5 BUN/Creatinine Ratio 12 (6-20) Glucose Level 145 mg/dL (70-99) Calcium Level 8.5 mg/dL (8.5-10.1) Total Bilirubin 0.8 mg/dL (0.2-1.0) Aspartate Amino Transf (AST/SGOT) 10 U/L (15-37) Alanine Aminotransferase (ALT/SGPT) 9 U/L (16-63) Alkaline Phosphatase 66 U/L (46-116) Total Protein 5.9 g/dL (6.4-8.2) Albumin 2.9 g/dL (3.4-5.0) Albumin/Globulin Ratio 1.0 (1.0-1.7) Glucose (Fingerstick) 101 mg/dL (70-99) 116 mg/dL (70-99) 88 mg/dL (70-99) Test 09/14/19 21:00 09/15/19 04:00 09/15/19 07:43 Glucose (Fingerstick) 243 mg/dL (70-99) 181 mg/dL (70-99) Sodium Level 141 mmol/L (136-145) Potassium Level 3.8 mmol/L (3.5-5.1) Chloride Level 105 mmol/L (98-107) Carbon Dioxide Level 27 mmol/L (21-32) Anion Gap 9 (6-14) Blood Urea Nitrogen 11 mg/dL (8-26) Creatinine 1.3 mg/dL (0.7-1.3) Estimated GFR (Cockcroft-Gault) 82.1 Glucose Level 193 mg/dL (70-99) Calcium Level 8.2 mg/dL (8.5-10.1) Phosphorus Level 4.0 mg/dL (2.6-4.7) Magnesium Level 1.3 mg/dL (1.8-2.4) Albumin 2.8 g/dL (3.4-5.0) Laboratory Tests Test 09/14/19 11:29 09/14/19 16:44 09/14/19 21:00 09/15/19 04:00 Glucose (Fingerstick) 116 mg/dL (70-99) 88 mg/dL (70-99) 243 mg/dL (70-99) Sodium Level 141 mmol/L (136-145) Potassium Level 3.8 mmol/L (3.5-5.1) Chloride Level 105 mmol/L (98-107) Carbon Dioxide Level 27 mmol/L (21-32) Anion Gap 9 (6-14) Blood Urea Nitrogen 11 mg/dL (8-26) Creatinine 1.3 mg/dL (0.7-1.3) Estimated GFR (Cockcroft-Gault) 82.1 Glucose Level 193 mg/dL (70-99) Calcium Level 8.2 mg/dL (8.5-10.1) Phosphorus Level 4.0 mg/dL (2.6-4.7) Magnesium Level 1.3 mg/dL (1.8-2.4) Albumin 2.8 g/dL (3.4-5.0) Test 09/15/19 07:43 Glucose (Fingerstick) 181 mg/dL (70-99) Medications Current Medications Sodium Chloride 1,000 ml @ 1,000 mls/hr Q1H IV Last administered on 09/12/19at 16:12; Start 09/12/19 at 15:40; Stop 09/12/19 at 16:39; Status DC Ondansetron HCl (Zofran) 4 mg 1X ONCE IVP Last administered on 09/12/19at 16:12; Start 09/12/19 at 15:45; Stop 09/12/19 at 15:46; Status DC Insulin Human Regular (HumuLIN R VIAL) 10 unit 1X ONCE IV Last administered on 09/12/19at 17:20; Start 09/12/19 at 17:15; Stop 09/12/19 at 17:16; Status DC Sodium Chloride 1,000 ml @ 1,000 mls/hr 1X ONCE IV Last administered on 09/12/19at 17:19; Start 09/12/19 at 17:15; Stop 09/12/19 at 18:14; Status DC Acetaminophen (Tylenol) 650 mg PRN Q6HRS PRN PO pain or fever; Start 09/12/19 at 18:30; Status UNV Haloperidol (Haldol) 5 mg QHS PO Last administered on 09/14/19at 20:58; Start 09/12/19 at 21:00 Metoclopramide HCl (Reglan Oral Solution) 5 mg TIDACHC PO Last administered on 09/13/19at 08:08; Start 09/12/19 at 21:00; Stop 09/13/19 at 11:56; Status DC Trazodone HCl (Desyrel) 50 mg QHS PO Last administered on 09/14/19at 20:59; Start 09/12/19 at 21:00; Stop 09/15/19 at 06:17; Status DC Fluoxetine HCl (PROzac) 40 mg DAILYWBKFT PO Last administered on 09/13/19at 08:0 8; Start 09/13/19 at 08:00 Insulin Glargine (Lantus Syringe) 20 unit QHS SQ Last administered on 09/14/19 21:06; Start 09/12/19 at 21:00 Insulin Human Lispro (HumaLOG) 8 units TIDWMEALS SQ Last administered on 09/13/19at 16:57; Start 09/13/19 at 08:00 Ondansetron HCl (Zofran) 4 mg PRN Q4HRS PRN IV NAUSEA/VOMITING Last administered on 09/14/19at 08:14; Start 09/12/19 at 18:30 Acetaminophen (Tylenol) 650 mg PRN Q4HRS PRN PO TEMP OVER 100.4F OR MILD PAIN; Start 09/12/19 at 18:30 Docusate Sodium (Colace) 100 mg PRN BID PRN PO HARD STOOLS; Start 09/12/19 at 18:30 Insulin Human Lispro (HumaLOG) 0-9 UNITS TIDACHC SQ Last administered on 09/14/19at 21:06; Start 09/12/19 at 21:00 Dextrose (Dextrose 50%-Water Syringe) 12.5 gm PRN Q15MIN PRN IV SEE COMMENTS; Start 09/12/19 at 18:30 Acetaminophen/ Hydrocodone Bitart (Lortab 5/325) 1 tab PRN Q6HRS PRN PO SEVERE PAIN 7-10 Last administered on 09/12/19at 21:38; Start 09/12/19 at 21:00 Morphine Sulfate (Morphine Sulfate) 2 mg PRN Q4HRS PRN IV SEVERE PAIN 7-10 Last administered on 09/13/19at 21:05; Start 09/12/19 at 21:00; Stop 09/14/19 at 08:55; Status DC Sodium Chloride 1,000 ml @ 75 mls/hr 1X ONCE IV Last administered on 09/13/19at 00:29; Start 09/13/19 at 00:00; Stop 09/13/19 at 13:19; Status DC Potassium Chloride/Water 100 ml @ 100 mls/hr Q1H IV Last administered on 09/13/19at 08:08; Start 09/13/19 at 05:00; Stop 09/13/19 at 08:59; Status DC Sodium Chloride 1,000 ml @ 100 mls/hr Q10H IV Last administered on 09/15/19at 04:00; Start 09/13/19 at 11:00 Potassium Chloride (Klor-Con) 40 meq 1X ONCE PO Last administered on 09/13/19at 12:23; Start 09/13/19 at 11:00; Stop 09/13/19 at 11:01; Status DC Potassium Chloride (Klor-Con) 20 meq DAILYWBKFT PO ; Start 09/14/19 at 08:00 Pantoprazole Sodium (PROTONIX VIAL for IV PUSH) 40 mg DAILYAC IVP Last administered on 09/14/19at 11:33; Start 09/14/19 at 11:00 Trazodone HCl (Desyrel) 100 mg QHS PO ; Start 09/15/19 at 21:00 Active Scripts Active Metoclopramide Hcl 10 Mg/10 Ml Solution 5 Mg PO TIDACHC 30 Days Lantus Solostar (Insulin Glargine,Hum.rec.anlog) 100 Unit/1 Ml Insuln.pen 40 Units SQ QHS MDD 1 30 Days Humalog (Insulin Lispro) 100 Unit/1 Ml Cartridge 18 Unit SQ TIDBFRMEAL 30 Days + Sliding scale 2u for every 50mg/dL greater than 150. Reported Acetaminophen 325 Mg Tablet 2 Tab PO PRN Q6HRS PRN 24 Days Trazodone Hcl 50 Mg Tablet 1 Tab PO QHS Prozac (Fluoxetine Hcl) 40 Mg Capsule 1 Cap PO DAILYWBKFT Haloperidol 5 Mg Tablet 1 Tab PO QHS Vitals/I & O Vital Sign - Last 24 Hours 09/14/19 09/14/19 09/14/19 09/14/19 11:00 15:00 19:20 20:30 Temp 98.5 98.4 98.6 98.5 98.4 98.6 Pulse 81 70 71 Resp 18 20 18 B/P (MAP) 135/87 (103) 120/72 (88) 132/84 (100) Pulse Ox 100 100 100 O2 Delivery Room Air Room Air Room Air Room Air 09/14/19 09/14/19 09/15/19 09/15/19 23:52 23:53 03:24 07:00 Temp 98.6 97.4 98.0 98.6 97.4 98.0 Pulse 70 81 76 Resp 18 19 18 B/P (MAP) 128/ 128/82 (97) 125/83 (97) 125/70 (88) Pulse Ox 100 99 100 O2 Delivery Room Air Room Air Room Air Intake and Output 09/14/19 09/14/19 09/15/19 15:00 23:00 07:00 Intake Total 360 ml 300 ml Output Total 1 ml Balance 359 ml 300 ml Hemodynamically unstable?: No Is patient in severe pain?: No Is NPO status required?: No PRASHANTH JAMES MD September 15, 2019 08:34
[2019-09-15] MEDS ORDERED: MAGNESIUM SULFATE 4GM 100 ML IV ONE (09:00)
[2019-09-15] MEDS: PANTOPRAZOLE IV PUSH 40 MG VIAL. IVP SCH (09:14)
[2019-09-15] MEDS: ONDANSETRON PF 4 MG/2 ML VIAL. IV PRN (09:19)
--- NOTE | 2019-09-15 09:52 | PDOC ---
Objective: Objective: D/w nurse - wasn't NPO this morning, ate half a piece of orozco - no vomiting overnight, then requested Zofran. Vital Signs: Vital Signs Date Time Temp Pulse Resp B/P (MAP) Pulse Ox O2 Delivery O2 Flow Rate FiO2 09/15/19 07:00 98.0 76 18 125/70 (88) 100 Room Air 98.0 Labs: Laboratory Tests Test 09/14/19 11:29 09/14/19 16:44 09/14/19 21:00 09/15/19 04:00 Glucose (Fingerstick) 116 mg/dL 88 mg/dL 243 mg/dL Sodium Level 141 mmol/L Potassium Level 3.8 mmol/L Chloride Level 105 mmol/L Carbon Dioxide Level 27 mmol/L Anion Gap 9 Blood Urea Nitrogen 11 mg/dL Creatinine 1.3 mg/dL Estimated GFR (Cockcroft-Gault) 82.1 Glucose Level 193 mg/dL Calcium Level 8.2 mg/dL Phosphorus Level 4.0 mg/dL Magnesium Level 1.3 mg/dL Albumin 2.8 g/dL Test 09/15/19 07:43 Glucose (Fingerstick) 181 mg/dL PE: out of room A/P: Recurrent n/v DM +cannabinoids -- Apparently eating w/o vomiting again. Can change from IV to PO PPI as able. Await GES. Hemodynamically unstable?: No Is patient in severe pain?: No Is NPO status required?: No TOYIN-HAO LOVELACE September 15, 2019 09:52
[2019-09-15 11:00] VITALS: BP 120/75
--- NOTE | 2019-09-15 14:12 | RAD ---
EXAM: Nuclear gastric emptying scan. HISTORY: Nausea and vomiting. COMPARISON: None. TECHNIQUE: Serial static images were obtained over the stomach following oral administration of 2.1 mCi of 99m-Tc sulfur colloid. FINDINGS: The stomach empties into the small bowel without evidence of reflux in the area of the esophagus. The estimated time for half emptying of gastric contents, i.e. 'gastric emptying time' is 144 minutes (normal is 66 +/- 22 minutes). There is a 3 percent retained tracer activity within the stomach at one hour, 66 percent retained tracer activity within stomach at 2 hours, 13 percent retained tracer activity within stomach at 3 hours, and 2 percent retained tracer activity within stomach at 4 hours. IMPRESSION: Delayed gastric emptying with a half-time of greater than 2 hours. There is a normal minimal amount of residual radiotracer activity within the stomach at 4 hours. Electronically signed by: Lynn Bruner MD (09/15/2019 2:08 PM) [id number]
--- NOTE | 2019-09-15 14:51 | RAD ---
Gastric emptying study was attempted. However following ingestion of 2 mCi of technetium sulfur colloid meal, patient had emesis and therefore imaging could not be completed. If clinically indicated, this examination can be repeated when the patient is able to tolerate. Electronically signed by: Kevin Narvaez MD (09/15/2019 2:48 PM) [id number]
[2019-09-15 15:00] VITALS: BP 128/78
[2019-09-15] MEDS ORDERED: INSU100I13 SQ (15:00)
[2019-09-15] MEDS ORDERED: INSU100C SQ (15:00)
[2019-09-15] MEDS ORDERED: METO10SO PO (15:00)
--- NOTE | 2019-09-15 15:02 | SNU/HH DC ---
DISCHARGE WITH HOME HEALTH DISCHARGE INFORMATION: Discharge Date: September 15, 2019 Final Diagnosis: Problems Medical Problems: (1) Dehydration Status: Acute Condition on Discharge: Stable CODE STATUS: Code Status: Full HOME HEALTH: Face to Face: I certify this patient is under my care and that I, or a nurse practitioner or physician's administrative personal assistant working with me, had a face to face encounter that meets the physician face to face encounter requirements with this patient on 09/15/2019. Medical Complications: DM Mcc For: Medication Management RN For Eval/Treatment: Yes Physical Therapy For: Evalulation/Treatment Occupational Therapy For: Evaluation/Treatment Speech Language Pathology For: Evaluation/Treatment Home Health Aide For: Self-care Pt Meets Homebound Status: Unable to negotiate home POST DISCHARGE ORDERS: Activity Instructions for Disc: Activity as tolerated Weight Bearing Status after Di: As tolerated DIET AFTER DISCHARGE: ADA Wound/Incision Care: No wound care needed CHECKS AFTER DISCHARGE: Checks after discharge: Check blood press - daily, Check blood sugar, ac/hs, Check your Temp as needed TREATMENT/EQUIPMENT ORDERS: Adaptive Equipment Issued: None CERTIFICATION STATEMENT: Certification Statement: Certification Statement: Based on the above finding, I certify that this patient is confined to the home and needs intermittent retirement care, physical therapy and/or speech therapy, or continues to need occupational therapy.~ This patient is under my care, and I have initiated the establishment of the plan of care.~ This patient will be followed by myself or a community physician who will periodically review the plan of care. Home Meds Active Scripts Metoclopramide Hcl (METOCLOPRAMIDE HCL) 10 Mg/10 Ml Solution, 5 MG PO TIDACHC for Diabetic gastroparesis for 30 Days, #120 MISC 2 Refills Prov:PRASHANTH JAMES MD 09/15/19 Insulin Glargine,Hum.rec.anlog (LANTUS SOLOSTAR) 100 Unit/1 Ml Insuln.pen, 40 UNITS SQ QHS for dm MDD 1 for 30 Days, #1 EACH 2 Refills Prov:PRASHANTH JAMES MD 09/15/19 Insulin Lispro (HUMALOG) 100 Unit/1 Ml Cartridge, 18 UNIT SQ TIDBFRMEAL for dm for 30 Days, #1 EACH 2 Refills + Sliding scale 2u for every 50mg/dL greater than 150. Prov:PRASHANTH JAMES MD 09/15/19 Reported Medications Acetaminophen (ACETAMINOPHEN) 325 Mg Tablet, 2 TAB PO PRN Q6HRS PRN for pain or fever for 24 Days, #100 TAB 0 Refills 06/07/19 Trazodone Hcl (TRAZODONE HCL) 50 Mg Tablet, 1 TAB PO QHS for insomnia, #30 TAB 1 Refill 06/07/19 Fluoxetine Hcl (PROZAC) 40 Mg Capsule, 1 CAP PO DAILYWBKFT for depress, #30 CAP 1 Refill 06/07/19 Haloperidol (HALOPERIDOL) 5 Mg Tablet, 1 TAB PO QHS for mood stab, #30 TAB 1 Refill 06/07/19 PRASHANTH JAMES MD September 15, 2019 15:02
--- NOTE | 2019-09-15 15:08 | PDOC3 ---
Discharge Summary Visit Information Date of Admission: September 12, 2019 Date of Discharge: September 15, 2019 Admitting Diagnosis: Intractable nausea and vomiting Final Diagnosis Problems Medical Problems: (1) Dehydration Status: Acute Brief Hospital Course Allergies Allergies Coded Allergies Type Severity Reaction Last Updated Verified No Known Drug Allergies 08/25/16 No Vital Signs Vital Signs Date Time Temp Pulse Resp B/P (MAP) Pulse Ox O2 Delivery O2 Flow Rate FiO2 09/15/19 11:00 98.0 72 18 120/75 (90) 100 Room Air 98.0 Lab Results Laboratory Tests Test 09/13/19 16:33 09/13/19 21:02 09/14/19 04:19 09/14/19 07:23 Glucose (Fingerstick) 298 mg/dL (70-99) 94 mg/dL (70-99) 101 mg/dL (70-99) White Blood Count 7.0 x10^3/uL (4.0-11.0) Red Blood Count 4.30 x10^6/uL (4.30-5.70) Hemoglobin 13.1 g/dL (13.0-17.5) Hematocrit 38.1 % (39.0-53.0) Mean Corpuscular Volume 89 fL (79-100) Mean Corpuscular Hemoglobin 30 pg (25-35) Mean Corpuscular Hemoglobin Concent 34 g/dL (31-37) Red Cell Distribution Width 13.4 % (11.5-14.5) Platelet Count 342 x10^3/uL (140-400) Neutrophils (%) (Auto) 39 % (31-73) Lymphocytes (%) (Auto) 52 % (24-48) Monocytes (%) (Auto) 7 % (0-9) Eosinophils (%) (Auto) 2 % (0-3) Basophils (%) (Auto) 1 % (0-3) Neutrophils # (Auto) 2.7 x10^3/uL (1.8-7.7) Lymphocytes # (Auto) 3.6 x10^3/uL (1.0-4.8) Monocytes # (Auto) 0.5 x10^3/uL (0.0-1.1) Eosinophils # (Auto) 0.1 x10^3/uL (0.0-0.7) Basophils # (Auto) 0.1 x10^3/uL (0.0-0.2) Sodium Level 137 mmol/L (136-145) Potassium Level 3.7 mmol/L (3.5-5.1) Chloride Level 104 mmol/L (98-107) Carbon Dioxide Level 27 mmol/L (21-32) Anion Gap 6 (6-14) Blood Urea Nitrogen 13 mg/dL (8-26) Creatinine 1.1 mg/dL (0.7-1.3) Estimated GFR (Cockcroft-Gault) 99.5 BUN/Creatinine Ratio 12 (6-20) Glucose Level 145 mg/dL (70-99) Calcium Level 8.5 mg/dL (8.5-10.1) Total Bilirubin 0.8 mg/dL (0.2-1.0) Aspartate Amino Transf (AST/SGOT) 10 U/L (15-37) Alanine Aminotransferase (ALT/SGPT) 9 U/L (16-63) Alkaline Phosphatase 66 U/L (46-116) Total Protein 5.9 g/dL (6.4-8.2) Albumin 2.9 g/dL (3.4-5.0) Albumin/Globulin Ratio 1.0 (1.0-1.7) Test 09/14/19 11:29 09/14/19 16:44 09/14/19 21:00 09/15/19 04:00 Glucose (Fingerstick) 116 mg/dL (70-99) 88 mg/dL (70-99) 243 mg/dL (70-99) Sodium Level 141 mmol/L (136-145) Potassium Level 3.8 mmol/L (3.5-5.1) Chloride Level 105 mmol/L (98-107) Carbon Dioxide Level 27 mmol/L (21-32) Anion Gap 9 (6-14) Blood Urea Nitrogen 11 mg/dL (8-26) Creatinine 1.3 mg/dL (0.7-1.3) Estimated GFR (Cockcroft-Gault) 82.1 Glucose Level 193 mg/dL (70-99) Calcium Level 8.2 mg/dL (8.5-10.1) Phosphorus Level 4.0 mg/dL (2.6-4.7) Magnesium Level 1.3 mg/dL (1.8-2.4) Albumin 2.8 g/dL (3.4-5.0) Test 09/15/19 07:43 09/15/19 11:28 Glucose (Fingerstick) 181 mg/dL (70-99) 181 mg/dL (70-99) Laboratory Tests Test 09/14/19 16:44 09/14/19 21:00 09/15/19 04:00 09/15/19 07:43 Glucose (Fingerstick) 88 mg/dL (70-99) 243 mg/dL (70-99) 181 mg/dL (70-99) Sodium Level 141 mmol/L (136-145) Potassium Level 3.8 mmol/L (3.5-5.1) Chloride Level 105 mmol/L (98-107) Carbon Dioxide Level 27 mmol/L (21-32) Anion Gap 9 (6-14) Blood Urea Nitrogen 11 mg/dL (8-26) Creatinine 1.3 mg/dL (0.7-1.3) Estimated GFR (Cockcroft-Gault) 82.1 Glucose Level 193 mg/dL (70-99) Calcium Level 8.2 mg/dL (8.5-10.1) Phosphorus Level 4.0 mg/dL (2.6-4.7) Magnesium Level 1.3 mg/dL (1.8-2.4) Albumin 2.8 g/dL (3.4-5.0) Test 09/15/19 11:28 Glucose (Fingerstick) 181 mg/dL (70-99) Brief Hospital Course Mr Molina is a 24yo M w/ PMHx Type 1 DM, bilateral cataracts presented with some nausea and vomiting, had some associated diarrhea, has been occurring for a couple of days, describes as very irritating, and rated at 7/10. Went to stand up today and got dizzy and fell to the floor but he did not hurt himself or pass out. He states he did not hit his head. He states he has been drinking little sips of water here and there but he cannot keep any food down and he sometimes keeps the fluid down. He denies any abdominal pain, chest pain, shortness of air, dizziness at this time, headache, fever, diarrhea, numbness or tingling, focal weakness, vision changes. He states he had some water this morning and try to keep down some broth. He states he has not actually ate food for the last 5 days. He did smoke marijuana this morning. Patient states he has not "really" been taking his insulin due to he has not been eating any food. Currently only feels nauseated. Abdomen is soft and nontender. He vomited after ED attempted to feed him. Just admitted and discharged September 05 for DKA. He has had nausea and vomiting since the . He states that the day that he got out of the hospital he was better but after that he began with a nausea vomiting again. When doing orthostatics when patient stood up he became dizzy and his heart rate jumped to 140. After 1.5 L of normal saline patient's heart rate resting and laying down was in the 80s. When we had him stand up to jump to 118. There is no severe drop in blood pressure. Patient states he feels slightly better. Glucose 406, Bilirubin 1.4, Ca 10.4. Admit the patient for observation with IV fluids and p.r.n. antiemetics. 09/12: called sister [phone] no answer. Still vomiting. 09/13: Able to eat overnight, however this morning he vomited after the eggs for his gastric emptying study. Glycemic control improved. Labs improved. currently he has nausea. No chest pain or shortness of breath. He is still struggling with self-care and is considering long-term care again. Afebrile overnight, magnesium 1.3. Glucose less than 200. GS normal at 4 hours, however delayed 2 hours. Will go back on the Reglan needs refills on his insulin, has been educated on the fact that he needs to administer his Lantus even if he is not taking any food as he is type 1 insulin-dependent. He tells me he needs a new glucometer he was given a glucometer prescription and renewed home health on discharge. Problem list: Intractable nausea and vomiting - likely gastroenteritis vs gastroparesis, required NPO for 24 hours, ADAT States he is had nausea and vomiting since the Hyperglycemia, ACUTE - resolved with IV insulin, antiemetics, can eat , started glargine 20 u and 8u TID lispro with meals with high sliding scale Hypercalcemia - Dehydrated Hyperbilirubinemia - constipated, will cont stool softeners Acute Renal insufficiency - vasomotor nephropathy NONCOMPLIANCE DUE TO LACK OF FUNDS THC ABUSE - counseled., may be contributing to vomiting Cataracts - s/p surgical correction DM1 - A1c is 15.5 this past 12/2018, repeat is 15.2 as of 04/2019, then 8.3 08/2019 Greater than 30 minutes spent on discharge home with health. Discharge Information Condition at Discharge: Improved Follow Up: Weeks (1) Disposition/Orders: D/C to Home w/ HH Scheduled Fluoxetine Hcl (Prozac) 40 Mg Capsule, 1 CAP PO [id number] for depress, #30 Ref 1 (Reported) Entered as Reported by: AXEL ABDULLAHI RN on 06/07/191718 Last Action: Converted on 09/12/191825 by PRASHANTH JAMES MD Haloperidol (Haloperidol) 5 Mg Tablet, 1 TAB PO QHS for mood stab, #30 Ref 1 (Reported) Entered as Reported by: AXEL ABDULLAHI RN on 06/07/191718 Last Action: Continued on 09/12/191824 by PRASHANTH JAMES MD Insulin Glargine,Hum.rec.anlog (Lantus Solostar) 100 Unit/1 Ml Insuln.pen, 40 UNITS SQ QHS for dm MDD 1 for 30 Days, #1 Ref 2 Prescribed by: PRASHANTH JAMES MD on 09/15/19 1500 Insulin Lispro (Humalog) 100 Unit/1 Ml Cartridge, 18 UNIT SQ TIDBFRMEAL for dm for 30 Days, #1 Ref 2 + Sliding scale 2u for every 50mg/dL greater than 150. Prescribed by: PRASHANTH JAMES MD on 09/15/19 1500 Metoclopramide Hcl (Metoclopramide Hcl) 10 Mg/10 Ml Solution, 5 MG PO TIDACHC for Diabetic gastroparesis for 30 Days, #120 Ref 2 Prescribed by: PRASHANTH JAMES MD on 09/15/19 1500 Trazodone Hcl (Trazodone Hcl) 50 Mg Tablet, 1 TAB PO QHS for insomnia, #30 Ref 1 (Reported) Entered as Reported by: AXEL ABDULLAHI RN on 06/07/191718 Last Action: Continued on 09/12/191824 by PRASHANTH JAMES MD Scheduled PRN Acetaminophen (Acetaminophen) 325 Mg Tablet, 2 TAB PO PRN Q6HRS PRN for pain or fever for 24 Days, #100 Ref 0 (Reported) Entered as Reported by: AXEL ABDULLAHI RN on 06/07/19 171 Last Action: Continued on 09/12/191824 by PRASHANTH JAMES MD Hemodynamically unstable?: No Is patient in severe pain?: No Is NPO status required?: No PRASHANTH JAMES MD September 15, 2019 15:08
--- NOTE | 2019-09-15 16:44 | NUR ---
Patient left the building around 1640. Discharge education gone over by this nurse and Dr Sutton prior to discharge. IV discontinued without any complications noted. Scripts given for two insulins, glucometer, and reglan to the patient. Patient had home health prior to admission and will continue home health with them at discharge. No concerns noted at discharge.
[2019-09-15] MEDS ORDERED: traZODone 100 MG TABLET. PO SCH (21:00)
== END 2019-09-15 16:46 | disposition home health service (06) | DRG 73 ==
LOC: ER 15:31 → ED HOLD 18:27 → 4 NORTH 20:34
PROVIDERS: ADMIT Internal Medicine; ATTEND Internal Medicine
DX: E10.43 Type 1 diabetes mellitus with diabetic autonomic (poly)neuropathy (principal); N17.0 Acute kidney failure with tubular necrosis; R17 Unspecified jaundice; E10.10 Type 1 diabetes mellitus with ketoacidosis without coma; K52.9 Noninfective gastroenteritis and colitis, unspecified; E78.00 Pure hypercholesterolemia, unspecified; E78.5 Hyperlipidemia, unspecified; E83.52 Hypercalcemia; F32.9 Major depressive disorder, single episode, unspecified; E86.0 Dehydration; F12.10 Cannabis abuse, uncomplicated; I10 Essential (primary) hypertension; K59.00 Constipation, unspecified; Z79.4 Long term (current) use of insulin; Z82.49 Family history of ischemic heart disease and other diseases of the circulatory system; Z87.891 Personal history of nicotine dependence; Z91.19 Patient's noncompliance with other medical treatment and regimen; K31.84 Gastroparesis
CPT/HCPCS: 36415; 36600; 78264; 80048; 80053; 80069; 80307; 81001; 82010; 82805; 82962; 83690; 83735; 84484; 85025; 85610; 93005; 96361; 96374; 96375; A9541; C9113; J1815; J2270; J2405; J3475; J3480; J7030; 99285-25; G0378; J8597

== ENCOUNTER 2019-10-17 15:17 | Inpatient (IN) | payer OTHER ==
[~2019-10-17] VITALS: Ht 172.7 cm; Wt 67.3 kg
[2019-10-17] MEDS ORDERED: IV NORMAL SALINE 1000ML BAG 1,000 ML IV ONE ×3 (15:45→17:30)
[2019-10-17] MEDS ORDERED: ONDANSETRON PF 4 MG/2 ML VIAL. IVP ONE (16:00)
[2019-10-17] MEDS ORDERED: MORPHINE SULFATE 4 MG/ML VIAL. IV ONE (16:00)
[2019-10-17 16:09] LABS: BASO % 0 % (0-3); EOS % 0 % (0-3); HEMATOCRIT 50.9 % (39.0-53.0); HEMOGLOBIN 17.5 g/dL (13.0-17.5); LYMPH # 1.5 x10^3/uL (1.0-4.8); LYMPH % 17 % (24-48); MEAN CORPUSCULAR HEMOGLOBIN 31 pg (25-35); MEAN CORPUSCULAR HGB CONC 34 g/dL (31-37); MEAN CORPUSCULAR VOLUME 91 fL (79-100); MONO # 0.9 x10^3/uL (0.0-1.1); MONO % 10 % (0-9); NEUT # 6.4 x10^3/uL (1.8-7.7); NEUT % 72 % (31-73); PLATELET COUNT 434 x10^3/uL (140-400); RED BLOOD COUNT 5.62 x10^6/uL (4.30-5.70); RED CELL DISTRIBUTION WIDTH 13.6 % (11.5-14.5); WHITE BLOOD COUNT 8.9 x10^3/uL (4.0-11.0)
--- NOTE | 2019-10-17 16:12 | PHYS DOC ---
Past Medical History Past Medical History: Diabetes-Type I, High Cholesterol, Hypertension, Renal Disease Additional Past Medical Histor: cataracts, blind/visual impairment Past Surgical History: No Surgical History Smoking Status: Current Every Day Smoker Alcohol Use: Occasionally Drug Use: Marijuana General Adult EDM: Chief Complaint: BLOOD SUGAR PROBLEM HPI: HPI: Patient is a 24 year old M who is type 1 diabetic who reports to ER with complaints of N/V and stomach pain. He has significant history of problems with DKA, with two recent admissions in August for the same and states this feels similar and that he "needs fluids". Pt does appear dry and uncomfortable on exam. He denies being ill before this morning but states his blood sugars have been running high for last few days. He reports compliance with his insulin injections, he does not have a pump. PMH includes hyperlipidemia, IDDM, B cataracts and substance abuse. Review of Systems: Review of Systems: Constitutional: Denies fever or chills. HENT: Denies nasal congestion or sore throat. Respiratory: Denies cough or shortness of breath. Cardiovascular: Denies chest pain or edema. GI: Reports abd pain, nausea and vomiting. : Reports frequent urination. Musculoskeletal: Denies back pain or joint pain. Neurologic: Denies headache, focal weakness or sensory changes. Endocrine: Reports polyuria Psychiatric: Denies depression or anxiety. Heart Score: Risk Factors: Risk Factors: DM, Current or recent (<one month) smoker, HTN, HLP, family history of CAD, obesity. Risk Scores: Score 0 - 3: 2.5% MACE over next 6 weeks - Discharge Home Score 4 - 6: 20.3% MACE over next 6 weeks - Admit for Clinical Observation Score 7 - 10: 72.7% MACE over next 6 weeks - Early Invasive Strategies Current Medications: Current Medications Medications (Trade) Dose Ordered Sig/[facility] Start Time Stop Time Status Last Admin Dose Admin Morphine Sulfate (Morphine Sulfate) 4 mg 1X ONCE 10/17/19 16:00 10/17/19 16:01 DC Ondansetron HCl (Zofran) 4 mg 1X ONCE 10/17/19 16:00 10/17/19 16:01 DC Sodium Chloride 1,000 ml @ 1,000 mls/hr 1X ONCE 10/17/19 16:00 10/17/19 16:59 Allergies: Allergies: Allergies Coded Allergies Type Severity Reaction Last Updated Verified No Known Drug Allergies 10/17/19 No Physical Exam: PE: Constitutional: Well developed, cooperative male, who appears significantly dehydrated and uncomfortable on exam. HENT: Normocephalic, atraumatic, bilateral external ears normal, no oral exudates, nose normal. Oral mucosa dry Neck: Normal range of motion, no tenderness, supple, no stridor. Cardiovascular:Heart rate regular rhythm, no murmur Lungs & Thorax: Bilateral breath sounds clear to auscultation Abdomen: Bowel sounds normal, soft, diffuse tenderness in all 4 quadrants Skin: Warm, dry, no erythema, no rash. Back: No tenderness, no CVA tenderness. Extremities: No tenderness, no cyanosis, no clubbing, ROM intact, no edema. Neurologic: Alert and oriented X 3, normal motor function, normal sensory function, no focal deficits noted. Psychologic: Affect normal, judgement normal, mood normal. Current Patient Data: Vital Signs: Pt remains mildly tachcardic from 90-110's, BP stable on recheck at 1730. EKG: EKG: [] Radiology/Procedures: Radiology/Procedures: [] Course & Med Decision Making: Course & Med Decision Making Pertinent Labs and Imaging studies reviewed. (See chart for details) Clinical presentation/exam and labs consistent with diabetic ketoacidosis. Pt feeling some improvement in ER, tachycardia improving and tolerating ice chips and water. Discussed admission to ICU for aggressive hydration and insulin drip and he agrees with plan. Pt was given morphine to help with abdominal cramping and he reports his pain is now a zero. Insulin drip ordered. Pt with significant lactic acidosis that I expect is related to dehydration with no obvious signs or symptoms of infection. ABG pending. Dragon Disclaimer: [email or web address]-CON Disclaimer: This electronic medical record was generated, in whole or in part, using a voice recognition dictation system. Departure Departure Impression: Primary Impression: DKA (diabetic ketoacidoses) Disposition: ADMITTED INPATIENT Admitting Physician: JESSICA Condition: IMPROVED Referrals: UNKNOWN PCP NAME (PCP) Justicifation of Admission Dx: Justifications for Admission: Justification of Admission Dx: Yes DKA: DKA SOFÍA ENCINAS Oct 17, 2019 16:12
[2019-10-17 16:22] LABS: CALCIUM 10.4 mg/dL (8.5-10.1); CREATININE 2.6 mg/dL (0.7-1.3); GFR 36.9; POTASSIUM 4.5 mmol/L (3.5-5.1)
[2019-10-17 16:25] LABS: ALBUMIN 4.9 g/dL (3.4-5.0); ALBUMIN/GLOBULIN RATIO 1.2 (1.0-1.7); TOTAL BILIRUBIN 3.1 mg/dL (0.2-1.0)
[2019-10-17 17:08] LABS: BILIRUBIN,URINE NEGATIVE (NEG); CLARITY,URINE CLEAR; COLOR,URINE YELLOW; NITRITE,URINE NEGATIVE (NEG); PH,URINE 5.5 (<5.0-8.0); PROTEIN,URINE NEGATIVE (NEG-TRACE); UROBILINOGEN,URINE 0.2 mg/dL (0.2 mg/dL)
[2019-10-17 17:13] LABS: BACTERIA,URINE FEW /HPF (0-FEW)
[2019-10-17 17:14] LABS: SQUAMOUS EPITHELIAL CELL,UR FEW /LPF
[2019-10-17] MEDS ORDERED: INSULIN,REGULAR 100 UNIT DRIP 100 ML IV ONE (17:30)
[2019-10-17] MEDS ORDERED: ONDANSETRON PF 4 MG/2 ML VIAL. IV PRN (17:45)
[2019-10-17 17:53] LABS: BASE EXCESS COOX 4 mmol/L (-3-3); HCO3 COOX 28 mmol/L (21-28); METHEMOGLOBIN 0.4 % (0.0-1.9); OXYHEMOGLOBIN 95.7 %; PCO2 COOX 39 mmHg (35-46); PO2 COOX 94 mmHg (85-108); SAT O2 COOX 97 % (92-99)
--- NOTE | 2019-10-17 19:49 | HP ---
ADMIT DATE: 10/17/2019 CHIEF COMPLAINT: Weakness, nausea, elevated glucose. HISTORY OF PRESENT ILLNESS: The patient is a pleasant 24-year-old male who has severe diabetes. He has been admitted before with DKA. At this time, he presents once again with glucose of greater than 800. He also has an anion gap metabolic acidosis with a gap of 24. I discussed the case with the ER physician. We are admitting the patient to the ICU for DKA protocol. PAST MEDICAL HISTORY: DKA, noncompliance, diabetes, hypertension, hyperlipidemia, chronic renal insufficiency, cataracts, visual impairment, tobacco abuse, marijuana use. ALLERGIES: None. FAMILY HISTORY: Diabetes. SOCIAL HISTORY: He does not drink. He smokes cigarettes and marijuana. MEDICATIONS: Reviewed, please refer to the MRAD. REVIEW OF SYSTEMS: GENERAL: No history of weight change, weakness or fevers. SKIN: No bruising, hair changes or rashes. EYES: No blurred, double or loss of vision. NOSE AND THROAT: No history of nosebleeds, hoarseness or sore throat. HEART: No history of palpitations, chest pain or shortness of breath on exertion. LUNGS: Denies cough, hemoptysis, wheezing or shortness of breath. GASTROINTESTINAL: Denies changes in appetite, nausea, vomiting, diarrhea or constipation. GENITOURINARY: No history of frequency, urgency, hesitancy or nocturia. NEUROLOGIC: Denies history of numbness, tingling, tremor or weakness. PSYCHIATRIC: No history of panic, anxiety or depression. ENDOCRINE: No history of heat or cold intolerance, polyuria or polydipsia. EXTREMITIES: Denies muscle weakness, joint pain, pain on walking or stiffness. PHYSICAL EXAMINATION: VITALS: Within normal limits and are stable. GENERAL: No apparent distress. Alert and oriented. HEENT: Normal cephalic atraumatic, external auditory canals are patent EYES: Extraocular muscles are intact, pupils are equally round and reactive to light and accommodation MUSCULOSKELETAL: Well developed, well nourished, good range of motion ENDOCRINE: No thyromegaly was palpated LYMPHATICS: No cervical chain or axillary nodes were noted HEMATOPOIETIC: No bruising NECK: Supple, no JVD, no thyromegaly was noted. LUNGS: Clear to auscultation in all lung spear without rhonchi or wheezing. HEART: RRR, S1, S2 present. Peripheral pulses intact, no obvious murmurs were noted. ABDOMEN: Soft, nontender. Positive bowel sounds no organomegaly, normal bowel sounds. EXTREMITIES: Without any cyanosis, clubbing, or edema. Pedal pulses intact, Homans sign is negative. NEUROLOGIC: Normal speech, normal tone. A & O x3, moves all extremities, no obvious focal deficits. PSYCHIATRIC: Normal affect, normal mood. Stable. SKIN: No ulcerations or rashes, good skin turgor, no jaundice. VASCULAR: Good capillary refill, neurovascular bundle appears to be intact. ASSESSMENT AND PLAN: Diabetic ketoacidosis. The patient will be admitted with diabetic ketoacidosis protocol to the ICU. We will continue insulin drip, IV fluids, frequent BMP. Home meds, DVT prophylaxis. Full code. PROGNOSIS: Guarded. JU TIAN DO DR: DOUG/zion JOB#: [id number] / [id number]
[2019-10-17 20:00] VITALS: BP 108/64
[2019-10-17] MEDS ORDERED: INSULIN REGULAR VIAL 100 UNIT in IV NORMAL SALINE 100ML 100 ML IV PRN (20:15)
[2019-10-17] MEDS ORDERED: POTASSIUM CHLORIDE 10MEQ 100 ML IV PRN ×3 (20:15)
[2019-10-17] MEDS ORDERED: SODIUM BICARBONATE VIAL 50 MEQ in IV 1/2 NORMAL SALINE 1,000 ML IV PRN (20:15)
[2019-10-17] MEDS ORDERED: IV 1/2 NORMAL SALINE 1,000 ML IV SCH (20:16)
[2019-10-17] MEDS: IV DEXTROSE 5 %-0.45 % NACL 1,000 ML IV SCH (20:18)
[2019-10-17] MEDS: IV 1/2 NORMAL SALINE 1,000 ML IV SCH ×2 (20:18→22:36)
[2019-10-17] MEDS: IV NORMAL SALINE 1000ML BAG 1,000 ML IV SCH (20:18)
[2019-10-17 21:00] VITALS: BP 145/92
[2019-10-17 21:01] LABS: BASO # 0.1 x10^3/uL (0.0-0.2); BASO % 0 % (0-3); EOS % 0 % (0-3); HEMATOCRIT 49.8 % (39.0-53.0); HEMOGLOBIN 17.8 g/dL (13.0-17.5); LYMPH # 2.5 x10^3/uL (1.0-4.8); LYMPH % 22 % (24-48); MEAN CORPUSCULAR HEMOGLOBIN 31 pg (25-35); MEAN CORPUSCULAR HGB CONC 36 g/dL (31-37); MEAN CORPUSCULAR VOLUME 88 fL (79-100); MONO # 0.7 x10^3/uL (0.0-1.1); MONO % 6 % (0-9); NEUT # 8.3 x10^3/uL (1.8-7.7); NEUT % 72 % (31-73); PLATELET COUNT 400 x10^3/uL (140-400); RED BLOOD COUNT 5.69 x10^6/uL (4.30-5.70); RED CELL DISTRIBUTION WIDTH 13.8 % (11.5-14.5); WHITE BLOOD COUNT 11.6 x10^3/uL (4.0-11.0)
[2019-10-17 21:13] LABS: ALBUMIN 4.7 g/dL (3.4-5.0); CALCIUM 9.8 mg/dL (8.5-10.1); TOTAL PROTEIN 9.4 g/dL (6.4-8.2)
[2019-10-17 21:20] LABS: CREATININE 2.1 mg/dL (0.7-1.3); GFR 47.2; TOTAL BILIRUBIN 2.7 mg/dL (0.2-1.0)
[2019-10-17 21:21] LABS: DIRECT BILIRUBIN 0.3 mg/dL (0.0-0.2); MAGNESIUM 3.3 mg/dL (1.8-2.4); PHOSPHORUS 2.6 mg/dL (2.6-4.7)
[2019-10-17 22:00] VITALS: BP 128/72
[2019-10-17] MEDS: POTASSIUM CHLORIDE 10MEQ 100 ML IV SCH ×3 (22:00→23:57)
[2019-10-17 23:00] VITALS: BP 106/61
[2019-10-18] VITALS (16 sets, daily range): BP systolic 111–142; BP diastolic 55–77
[2019-10-18] MEDS: ONDANSETRON PF 4 MG/2 ML VIAL. IVP PRN ×3 (00:17→20:33)
[2019-10-18] MEDS: HYDROcodone/APAP 5/325MG 1 TAB TABLET PO PRN ×2 (00:17→11:21)
[2019-10-18] MEDS: IV NORMAL SALINE 1000ML BAG 1,000 ML IV SCH (00:18)
[2019-10-18] MEDS: IV DEXTROSE 5 %-0.45 % NACL 1,000 ML IV SCH (00:34)
[2019-10-18] MEDS: POTASSIUM CHLORIDE 10MEQ 100 ML IV SCH ×5 (00:56→07:17)
[2019-10-18 03:37] LABS: CALCIUM 9.1 mg/dL (8.5-10.1); CREATININE 1.4 mg/dL (0.7-1.3); GFR 75.3; MAGNESIUM 2.6 mg/dL (1.8-2.4); PHOSPHORUS 3.6 mg/dL (2.6-4.7); POTASSIUM 3.6 mmol/L (3.5-5.1)
[2019-10-18] MEDS ORDERED: INSULIN GLARGINE SYRINGE. SQ SCH ×2 (04:00→21:00)
[2019-10-18] MEDS ORDERED: DEXTROSE 50% 25 GM / 50ML DISP.SYRIN. IV PRN (04:00)
[2019-10-18] MEDS ORDERED: IV DEXTROSE 5% - 0.9 % NACL 1,000 ML IV SCH (04:00)
[2019-10-18 06:17] LABS: BARBITURATES NEG (NEG); BENZODIAZEPINES NEG (NEG); CANNABINOIDS POS (NEG); COCAINE NEG (NEG); METHADONE NEG (NEG); OPIATES POS (NEG); PHENCYCLIDINE NEG (NEG)
[2019-10-18 06:21] LABS: AMPHETAMINE/METHAMPHETAMINE NEG (NEG)
--- NOTE | 2019-10-18 06:24 | NUR ---
PT arrived from ED to room 105 at 1950. All monitors applied. Orders received from Dr Phillips. DKA protocol started. Gap closed at 0230 labs. K+ replaced, IVF changed per protocol, Lantus given, and then after 1 hour, insulin drip stopped. After arrival, pt found to have vomited several times, then requested antinausea medication and pain medication. When pt found at 0530 to have vomited again, after telling me that he was not nauseous, I offered to give him a cool cloth, call the doctor, etc. PT stated that he forced himself to vomit as that makes him feel better. Reminded the patient that the act of vomiting often precipitates an episode of DKA, so maybe he could avoid making himself vomit. Pt agreed.
[2019-10-18] MEDS: INSULIN LISPRO 300 UNITS/3 ML VIAL. SQ SCH ×5 (08:22→17:00)
[2019-10-18] MEDS ORDERED: ACETAMINOPHEN 325 MG TABLET. PO PRN (08:45)
--- NOTE | 2019-10-18 09:01 | PDOC ---
PROGRESS NOTES Chief Complaint Chief Complaint Diabetic ketoacidosis. shizophrenia depression, anxiety, The patient will be admitted with diabetic ketoacidosis protocol to the ICU. We will continue insulin drip, IV fluids, frequent BMP. Home meds, DVT prophylaxis. Full code. History of Present Illness History of Present Illness pt seen in ICU off insulin gtt pain better, wants IV pain meds add nausea meds, cont current try out of ICU to reg hospital bed Vitals Vitals Vital Signs Date Time Temp Pulse Resp B/P (MAP) Pulse Ox O2 Delivery O2 Flow Rate FiO2 10/18/19 08:00 Nasal Cannula 2.0 10/18/19 08:00 68 20 132/72 (92) 99 10/18/19 07:00 97.8 97.8 Physical Exam General: Alert, Oriented X3, Cooperative, mild distress Heart: Regular rate Lungs: Clear Abdomen: Normal bowel sounds Extremities: No clubbing, No cyanosis Skin: No rashes Labs LABS Laboratory Tests Test 10/17/19 15:50 10/17/19 15:53 10/17/19 17:00 10/17/19 18:45 White Blood Count 8.9 x10^3/uL (4.0-11.0) Red Blood Count 5.62 x10^6/uL (4.30-5.70) Hemoglobin 17.5 g/dL (13.0-17.5) Hematocrit 50.9 % (39.0-53.0) Mean Corpuscular Volume 91 fL (79-100) Mean Corpuscular Hemoglobin 31 pg (25-35) Mean Corpuscular Hemoglobin Concent 34 g/dL (31-37) Red Cell Distribution Width 13.6 % (11.5-14.5) Platelet Count 434 x10^3/uL (140-400) Neutrophils (%) (Auto) 72 % (31-73) Lymphocytes (%) (Auto) 17 % (24-48) Monocytes (%) (Auto) 10 % (0-9) Eosinophils (%) (Auto) 0 % (0-3) Basophils (%) (Auto) 0 % (0-3) Neutrophils # (Auto) 6.4 x10^3/uL (1.8-7.7) Lymphocytes # (Auto) 1.5 x10^3/uL (1.0-4.8) Monocytes # (Auto) 0.9 x10^3/uL (0.0-1.1) Eosinophils # (Auto) 0.0 x10^3/uL (0.0-0.7) Basophils # (Auto) 0.0 x10^3/uL (0.0-0.2) Sodium Level 130 mmol/L (136-145) Potassium Level 4.5 mmol/L (3.5-5.1) Chloride Level 76 mmol/L (98-107) Carbon Dioxide Level 30 mmol/L (21-32) Anion Gap 24 (6-14) Blood Urea Nitrogen 64 mg/dL (8-26) Creatinine 2.6 mg/dL (0.7-1.3) Estimated GFR (Cockcroft-Gault) 36.9 BUN/Creatinine Ratio 25 (6-20) Glucose Level 874 mg/dL (70-99) Lactic Acid Level 5.3 mmol/L (0.4-2.0) Calcium Level 10.4 mg/dL (8.5-10.1) Magnesium Level 2.8 mg/dL (1.8-2.4) Total Bilirubin 3.1 mg/dL (0.2-1.0) Aspartate Amino Transf (AST/SGOT) 10 U/L (15-37) Alanine Aminotransferase (ALT/SGPT) 19 U/L (16-63) Alkaline Phosphatase 115 U/L (46-116) Total Protein 9.0 g/dL (6.4-8.2) Albumin 4.9 g/dL (3.4-5.0) Albumin/Globulin Ratio 1.2 (1.0-1.7) Acetone Level Sm pos (NEG) O2 Saturation 97 % (92-99) Arterial Blood pH 7.47 (7.35-7.45) Arterial Blood pCO2 at Patient Temp 39 mmHg (35-46) Arterial Blood pO2 at Patient Temp 94 mmHg (85-108) Arterial Blood HCO3 28 mmol/L (21-28) Arterial Blood Base Excess 4 mmol/L (-3-3) Oxyhemoglobin 95.7 % Methemoglobin 0.4 % (0.0-1.9) Carbon Monoxide, Quantitative 1.1 % (0.0-1.9) FiO2 Ra Urine Collection Type Unknown Urine Color Yellow Urine Clarity Clear Urine pH 5.5 (<5.0-8.0) Urine Specific Spencer 1.025 (1.000-1.030) Urine Protein Negative mg/dL (NEG-TRACE) Urine Glucose (UA) >=1000 mg/dL (NEG) Urine Ketones (Stick) >=80 mg/dL (NEG) Urine Blood Negative (NEG) Urine Nitrite Negative (NEG) Urine Bilirubin Negative (NEG) Urine Urobilinogen Dipstick 0.2 mg/dL (0.2 mg/dL) Urine Leukocyte Esterase Negative (NEG) Urine RBC 6-10 /HPF (0-2) Urine WBC 1-4 /HPF (0-4) Urine Squamous Epithelial Cells Few /LPF Urine Bacteria Few /HPF (0-FEW) Urine Mucus Slight /LPF Urine Opiates Screen Pos (NEG) Urine Methadone Screen Neg (NEG) Urine Barbiturates Neg (NEG) Urine Phencyclidine Screen Neg (NEG) Urine Amphetamine/Methamphetamine Neg (NEG) Urine Benzodiazepines Screen Neg (NEG) Urine Cocaine Screen Neg (NEG) Urine Cannabinoids Screen Pos (NEG) Urine Ethyl Alcohol Neg (NEG) Glucose (Fingerstick) 480 mg/dL (70-99) Test 10/17/19 19:08 10/17/19 20:01 10/17/19 20:36 10/17/19 20:56 Lactic Acid Level 2.7 mmol/L (0.4-2.0) Glucose (Fingerstick) 392 mg/dL (70-99) 364 mg/dL (70-99) White Blood Count 11.6 x10^3/uL (4.0-11.0) Red Blood Count 5.69 x10^6/uL (4.30-5.70) Hemoglobin 17.8 g/dL (13.0-17.5) Hematocrit 49.8 % (39.0-53.0) Mean Corpuscular Volume 88 fL (79-100) Mean Corpuscular Hemoglobin 31 pg (25-35) Mean Corpuscular Hemoglobin Concent 36 g/dL (31-37) Red Cell Distribution Width 13.8 % (11.5-14.5) Platelet Count 400 x10^3/uL (140-400) Neutrophils (%) (Auto) 72 % (31-73) Lymphocytes (%) (Auto) 22 % (24-48) Monocytes (%) (Auto) 6 % (0-9) Eosinophils (%) (Auto) 0 % (0-3) Basophils (%) (Auto) 0 % (0-3) Neutrophils # (Auto) 8.3 x10^3/uL (1.8-7.7) Lymphocytes # (Auto) 2.5 x10^3/uL (1.0-4.8) Monocytes # (Auto) 0.7 x10^3/uL (0.0-1.1) Eosinophils # (Auto) 0.0 x10^3/uL (0.0-0.7) Basophils # (Auto) 0.1 x10^3/uL (0.0-0.2) Sodium Level 141 mmol/L (136-145) Potassium Level 3.0 mmol/L (3.5-5.1) Chloride Level 92 mmol/L (98-107) Carbon Dioxide Level 33 mmol/L (21-32) Anion Gap 16 (6-14) Blood Urea Nitrogen 51 mg/dL (8-26) Creatinine 2.1 mg/dL (0.7-1.3) Estimated GFR (Cockcroft-Gault) 47.2 Glucose Level 395 mg/dL (70-99) Calcium Level 9.8 mg/dL (8.5-10.1) Phosphorus Level 2.6 mg/dL (2.6-4.7) Magnesium Level 3.3 mg/dL (1.8-2.4) Total Bilirubin 2.7 mg/dL (0.2-1.0) Direct Bilirubin 0.3 mg/dL (0.0-0.2) Aspartate Amino Transf (AST/SGOT) 9 U/L (15-37) Alanine Aminotransferase (ALT/SGPT) 16 U/L (16-63) Alkaline Phosphatase 112 U/L (46-116) Total Protein 9.4 g/dL (6.4-8.2) Albumin 4.7 g/dL (3.4-5.0) Lipase 105 U/L (73-393) Ethyl Alcohol Level < 10 mg/dL (0-10) Test 10/17/19 21:59 10/17/19 22:55 10/17/19 23:55 10/18/19 00:57 Glucose (Fingerstick) 270 mg/dL (70-99) 219 mg/dL (70-99) 152 mg/dL (70-99) 100 mg/dL (70-99) Test 10/18/19 01:54 10/18/19 02:24 10/18/19 02:59 10/18/19 04:05 Glucose (Fingerstick) 116 mg/dL (70-99) 157 mg/dL (70-99) 138 mg/dL (70-99) Sodium Level 138 mmol/L (136-145) Potassium Level 3.6 mmol/L (3.5-5.1) Chloride Level 98 mmol/L (98-107) Carbon Dioxide Level 33 mmol/L (21-32) Anion Gap 7 (6-14) Blood Urea Nitrogen 37 mg/dL (8-26) Creatinine 1.4 mg/dL (0.7-1.3) Estimated GFR (Cockcroft-Gault) 75.3 Glucose Level 127 mg/dL (70-99) Calcium Level 9.1 mg/dL (8.5-10.1) Phosphorus Level 3.6 mg/dL (2.6-4.7) Magnesium Level 2.6 mg/dL (1.8-2.4) Test 10/18/19 04:57 10/18/19 07:43 Glucose (Fingerstick) 153 mg/dL (70-99) 247 mg/dL (70-99) Assessment and Plan Assessmemt and Plan Problems Medical Problems: (1) DKA (diabetic ketoacidoses) Status: Acute Comment Review of Relevant I have reviewed the following items grupo (where applicable) has been applied. Labs Laboratory Tests Test 10/17/19 15:50 10/17/19 15:53 10/17/19 17:00 10/17/19 18:45 White Blood Count 8.9 x10^3/uL (4.0-11.0) Red Blood Count 5.62 x10^6/uL (4.30-5.70) Hemoglobin 17.5 g/dL (13.0-17.5) Hematocrit 50.9 % (39.0-53.0) Mean Corpuscular Volume 91 fL (79-100) Mean Corpuscular Hemoglobin 31 pg (25-35) Mean Corpuscular Hemoglobin Concent 34 g/dL (31-37) Red Cell Distribution Width 13.6 % (11.5-14.5) Platelet Count 434 x10^3/uL (140-400) Neutrophils (%) (Auto) 72 % (31-73) Lymphocytes (%) (Auto) 17 % (24-48) Monocytes (%) (Auto) 10 % (0-9) Eosinophils (%) (Auto) 0 % (0-3) Basophils (%) (Auto) 0 % (0-3) Neutrophils # (Auto) 6.4 x10^3/uL (1.8-7.7) Lymphocytes # (Auto) 1.5 x10^3/uL (1.0-4.8) Monocytes # (Auto) 0.9 x10^3/uL (0.0-1.1) Eosinophils # (Auto) 0.0 x10^3/uL (0.0-0.7) Basophils # (Auto) 0.0 x10^3/uL (0.0-0.2) Sodium Level 130 mmol/L (136-145) Potassium Level 4.5 mmol/L (3.5-5.1) Chloride Level 76 mmol/L (98-107) Carbon Dioxide Level 30 mmol/L (21-32) Anion Gap 24 (6-14) Blood Urea Nitrogen 64 mg/dL (8-26) Creatinine 2.6 mg/dL (0.7-1.3) Estimated GFR (Cockcroft-Gault) 36.9 BUN/Creatinine Ratio 25 (6-20) Glucose Level 874 mg/dL (70-99) Lactic Acid Level 5.3 mmol/L (0.4-2.0) Calcium Level 10.4 mg/dL (8.5-10.1) Magnesium Level 2.8 mg/dL (1.8-2.4) Total Bilirubin 3.1 mg/dL (0.2-1.0) Aspartate Amino Transf (AST/SGOT) 10 U/L (15-37) Alanine Aminotransferase (ALT/SGPT) 19 U/L (16-63) Alkaline Phosphatase 115 U/L (46-116) Total Protein 9.0 g/dL (6.4-8.2) Albumin 4.9 g/dL (3.4-5.0) Albumin/Globulin Ratio 1.2 (1.0-1.7) Acetone Level Sm pos (NEG) O2 Saturation 97 % (92-99) Arterial Blood pH 7.47 (7.35-7.45) Arterial Blood pCO2 at Patient Temp 39 mmHg (35-46) Arterial Blood pO2 at Patient Temp 94 mmHg (85-108) Arterial Blood HCO3 28 mmol/L (21-28) Arterial Blood Base Excess 4 mmol/L (-3-3) Oxyhemoglobin 95.7 % Methemoglobin 0.4 % (0.0-1.9) Carbon Monoxide, Quantitative 1.1 % (0.0-1.9) FiO2 Ra Urine Collection Type Unknown Urine Color Yellow Urine Clarity Clear Urine pH 5.5 (<5.0-8.0) Urine Specific Spencer 1.025 (1.000-1.030) Urine Protein Negative mg/dL (NEG-TRACE) Urine Glucose (UA) >=1000 mg/dL (NEG) Urine Ketones (Stick) >=80 mg/dL (NEG) Urine Blood Negative (NEG) Urine Nitrite Negative (NEG) Urine Bilirubin Negative (NEG) Urine Urobilinogen Dipstick 0.2 mg/dL (0.2 mg/dL) Urine Leukocyte Esterase Negative (NEG) Urine RBC 6-10 /HPF (0-2) Urine WBC 1-4 /HPF (0-4) Urine Squamous Epithelial Cells Few /LPF Urine Bacteria Few /HPF (0-FEW) Urine Mucus Slight /LPF Urine Opiates Screen Pos (NEG) Urine Methadone Screen Neg (NEG) Urine Barbiturates Neg (NEG) Urine Phencyclidine Screen Neg (NEG) Urine Amphetamine/Methamphetamine Neg (NEG) Urine Benzodiazepines Screen Neg (NEG) Urine Cocaine Screen Neg (NEG) Urine Cannabinoids Screen Pos (NEG) Urine Ethyl Alcohol Neg (NEG) Glucose (Fingerstick) 480 mg/dL (70-99) Test 10/17/19 19:08 10/17/19 20:01 10/17/19 20:36 10/17/19 20:56 Lactic Acid Level 2.7 mmol/L (0.4-2.0) Glucose (Fingerstick) 392 mg/dL (70-99) 364 mg/dL (70-99) White Blood Count 11.6 x10^3/uL (4.0-11.0) Red Blood Count 5.69 x10^6/uL (4.30-5.70) Hemoglobin 17.8 g/dL (13.0-17.5) Hematocrit 49.8 % (39.0-53.0) Mean Corpuscular Volume 88 fL (79-100) Mean Corpuscular Hemoglobin 31 pg (25-35) Mean Corpuscular Hemoglobin Concent 36 g/dL (31-37) Red Cell Distribution Width 13.8 % (11.5-14.5) Platelet Count 400 x10^3/uL (140-400) Neutrophils (%) (Auto) 72 % (31-73) Lymphocytes (%) (Auto) 22 % (24-48) Monocytes (%) (Auto) 6 % (0-9) Eosinophils (%) (Auto) 0 % (0-3) Basophils (%) (Auto) 0 % (0-3) Neutrophils # (Auto) 8.3 x10^3/uL (1.8-7.7) Lymphocytes # (Auto) 2.5 x10^3/uL (1.0-4.8) Monocytes # (Auto) 0.7 x10^3/uL (0.0-1.1) Eosinophils # (Auto) 0.0 x10^3/uL (0.0-0.7) Basophils # (Auto) 0.1 x10^3/uL (0.0-0.2) Sodium Level 141 mmol/L (136-145) Potassium Level 3.0 mmol/L (3.5-5.1) Chloride Level 92 mmol/L (98-107) Carbon Dioxide Level 33 mmol/L (21-32) Anion Gap 16 (6-14) Blood Urea Nitrogen 51 mg/dL (8-26) Creatinine 2.1 mg/dL (0.7-1.3) Estimated GFR (Cockcroft-Gault) 47.2 Glucose Level 395 mg/dL (70-99) Calcium Level 9.8 mg/dL (8.5-10.1) Phosphorus Level 2.6 mg/dL (2.6-4.7) Magnesium Level 3.3 mg/dL (1.8-2.4) Total Bilirubin 2.7 mg/dL (0.2-1.0) Direct Bilirubin 0.3 mg/dL (0.0-0.2) Aspartate Amino Transf (AST/SGOT) 9 U/L (15-37) Alanine Aminotransferase (ALT/SGPT) 16 U/L (16-63) Alkaline Phosphatase 112 U/L (46-116) Total Protein 9.4 g/dL (6.4-8.2) Albumin 4.7 g/dL (3.4-5.0) Lipase 105 U/L (73-393) Ethyl Alcohol Level < 10 mg/dL (0-10) Test 10/17/19 21:59 10/17/19 22:55 10/17/19 23:55 10/18/19 00:57 Glucose (Fingerstick) 270 mg/dL (70-99) 219 mg/dL (70-99) 152 mg/dL (70-99) 100 mg/dL (70-99) Test 10/18/19 01:54 10/18/19 02:24 10/18/19 02:59 10/18/19 04:05 Glucose (Fingerstick) 116 mg/dL (70-99) 157 mg/dL (70-99) 138 mg/dL (70-99) Sodium Level 138 mmol/L (136-145) Potassium Level 3.6 mmol/L (3.5-5.1) Chloride Level 98 mmol/L (98-107) Carbon Dioxide Level 33 mmol/L (21-32) Anion Gap 7 (6-14) Blood Urea Nitrogen 37 mg/dL (8-26) Creatinine 1.4 mg/dL (0.7-1.3) Estimated GFR (Cockcroft-Gault) 75.3 Glucose Level 127 mg/dL (70-99) Calcium Level 9.1 mg/dL (8.5-10.1) Phosphorus Level 3.6 mg/dL (2.6-4.7) Magnesium Level 2.6 mg/dL (1.8-2.4) Test 10/18/19 04:57 10/18/19 07:43 Glucose (Fingerstick) 153 mg/dL (70-99) 247 mg/dL (70-99) Laboratory Tests Test 10/17/19 15:50 10/17/19 15:53 10/17/19 17:00 10/17/19 18:45 White Blood Count 8.9 x10^3/uL (4.0-11.0) Red Blood Count 5.62 x10^6/uL (4.30-5.70) Hemoglobin 17.5 g/dL (13.0-17.5) Hematocrit 50.9 % (39.0-53.0) Mean Corpuscular Volume 91 fL (79-100) Mean Corpuscular Hemoglobin 31 pg (25-35) Mean Corpuscular Hemoglobin Concent 34 g/dL (31-37) Red Cell Distribution Width 13.6 % (11.5-14.5) Platelet Count 434 x10^3/uL (140-400) Neutrophils (%) (Auto) 72 % (31-73) Lymphocytes (%) (Auto) 17 % (24-48) Monocytes (%) (Auto) 10 % (0-9) Eosinophils (%) (Auto) 0 % (0-3) Basophils (%) (Auto) 0 % (0-3) Neutrophils # (Auto) 6.4 x10^3/uL (1.8-7.7) Lymphocytes # (Auto) 1.5 x10^3/uL (1.0-4.8) Monocytes # (Auto) 0.9 x10^3/uL (0.0-1.1) Eosinophils # (Auto) 0.0 x10^3/uL (0.0-0.7) Basophils # (Auto) 0.0 x10^3/uL (0.0-0.2) Sodium Level 130 mmol/L (136-145) Potassium Level 4.5 mmol/L (3.5-5.1) Chloride Level 76 mmol/L (98-107) Carbon Dioxide Level 30 mmol/L (21-32) Anion Gap 24 (6-14) Blood Urea Nitrogen 64 mg/dL (8-26) Creatinine 2.6 mg/dL (0.7-1.3) Estimated GFR (Cockcroft-Gault) 36.9 BUN/Creatinine Ratio 25 (6-20) Glucose Level 874 mg/dL (70-99) Lactic Acid Level 5.3 mmol/L (0.4-2.0) Calcium Level 10.4 mg/dL (8.5-10.1) Magnesium Level 2.8 mg/dL (1.8-2.4) Total Bilirubin 3.1 mg/dL (0.2-1.0) Aspartate Amino Transf (AST/SGOT) 10 U/L (15-37) Alanine Aminotransferase (ALT/SGPT) 19 U/L (16-63) Alkaline Phosphatase 115 U/L (46-116) Total Protein 9.0 g/dL (6.4-8.2) Albumin 4.9 g/dL (3.4-5.0) Albumin/Globulin Ratio 1.2 (1.0-1.7) Acetone Level Sm pos (NEG) O2 Saturation 97 % (92-99) Arterial Blood pH 7.47 (7.35-7.45) Arterial Blood pCO2 at Patient Temp 39 mmHg (35-46) Arterial Blood pO2 at Patient Temp 94 mmHg (85-108) Arterial Blood HCO3 28 mmol/L (21-28) Arterial Blood Base Excess 4 mmol/L (-3-3) Oxyhemoglobin 95.7 % Methemoglobin 0.4 % (0.0-1.9) Carbon Monoxide, Quantitative 1.1 % (0.0-1.9) FiO2 Ra Urine Collection Type Unknown Urine Color Yellow Urine Clarity Clear Urine pH 5.5 (<5.0-8.0) Urine Specific Spencer 1.025 (1.000-1.030) Urine Protein Negative mg/dL (NEG-TRACE) Urine Glucose (UA) >=1000 mg/dL (NEG) Urine Ketones (Stick) >=80 mg/dL (NEG) Urine Blood Negative (NEG) Urine Nitrite Negative (NEG) Urine Bilirubin Negative (NEG) Urine Urobilinogen Dipstick 0.2 mg/dL (0.2 mg/dL) Urine Leukocyte Esterase Negative (NEG) Urine RBC 6-10 /HPF (0-2) Urine WBC 1-4 /HPF (0-4) Urine Squamous Epithelial Cells Few /LPF Urine Bacteria Few /HPF (0-FEW) Urine Mucus Slight /LPF Urine Opiates Screen Pos (NEG) Urine Methadone Screen Neg (NEG) Urine Barbiturates Neg (NEG) Urine Phencyclidine Screen Neg (NEG) Urine Amphetamine/Methamphetamine Neg (NEG) Urine Benzodiazepines Screen Neg (NEG) Urine Cocaine Screen Neg (NEG) Urine Cannabinoids Screen Pos (NEG) Urine Ethyl Alcohol Neg (NEG) Glucose (Fingerstick) 480 mg/dL (70-99) Test 10/17/19 19:08 10/17/19 20:01 10/17/19 20:36 10/17/19 20:56 Lactic Acid Level 2.7 mmol/L (0.4-2.0) Glucose (Fingerstick) 392 mg/dL (70-99) 364 mg/dL (70-99) White Blood Count 11.6 x10^3/uL (4.0-11.0) Red Blood Count 5.69 x10^6/uL (4.30-5.70) Hemoglobin 17.8 g/dL (13.0-17.5) Hematocrit 49.8 % (39.0-53.0) Mean Corpuscular Volume 88 fL (79-100) Mean Corpuscular Hemoglobin 31 pg (25-35) Mean Corpuscular Hemoglobin Concent 36 g/dL (31-37) Red Cell Distribution Width 13.8 % (11.5-14.5) Platelet Count 400 x10^3/uL (140-400) Neutrophils (%) (Auto) 72 % (31-73) Lymphocytes (%) (Auto) 22 % (24-48) Monocytes (%) (Auto) 6 % (0-9) Eosinophils (%) (Auto) 0 % (0-3) Basophils (%) (Auto) 0 % (0-3) Neutrophils # (Auto) 8.3 x10^3/uL (1.8-7.7) Lymphocytes # (Auto) 2.5 x10^3/uL (1.0-4.8) Monocytes # (Auto) 0.7 x10^3/uL (0.0-1.1) Eosinophils # (Auto) 0.0 x10^3/uL (0.0-0.7) Basophils # (Auto) 0.1 x10^3/uL (0.0-0.2) Sodium Level 141 mmol/L (136-145) Potassium Level 3.0 mmol/L (3.5-5.1) Chloride Level 92 mmol/L (98-107) Carbon Dioxide Level 33 mmol/L (21-32) Anion Gap 16 (6-14) Blood Urea Nitrogen 51 mg/dL (8-26) Creatinine 2.1 mg/dL (0.7-1.3) Estimated GFR (Cockcroft-Gault) 47.2 Glucose Level 395 mg/dL (70-99) Calcium Level 9.8 mg/dL (8.5-10.1) Phosphorus Level 2.6 mg/dL (2.6-4.7) Magnesium Level 3.3 mg/dL (1.8-2.4) Total Bilirubin 2.7 mg/dL (0.2-1.0) Direct Bilirubin 0.3 mg/dL (0.0-0.2) Aspartate Amino Transf (AST/SGOT) 9 U/L (15-37) Alanine Aminotransferase (ALT/SGPT) 16 U/L (16-63) Alkaline Phosphatase 112 U/L (46-116) Total Protein 9.4 g/dL (6.4-8.2) Albumin 4.7 g/dL (3.4-5.0) Lipase 105 U/L (73-393) Ethyl Alcohol Level < 10 mg/dL (0-10) Test 10/17/19 21:59 10/17/19 22:55 10/17/19 23:55 10/18/19 00:57 Glucose (Fingerstick) 270 mg/dL (70-99) 219 mg/dL (70-99) 152 mg/dL (70-99) 100 mg/dL (70-99) Test 10/18/19 01:54 10/18/19 02:24 10/18/19 02:59 10/18/19 04:05 Glucose (Fingerstick) 116 mg/dL (70-99) 157 mg/dL (70-99) 138 mg/dL (70-99) Sodium Level 138 mmol/L (136-145) Potassium Level 3.6 mmol/L (3.5-5.1) Chloride Level 98 mmol/L (98-107) Carbon Dioxide Level 33 mmol/L (21-32) Anion Gap 7 (6-14) Blood Urea Nitrogen 37 mg/dL (8-26) Creatinine 1.4 mg/dL (0.7-1.3) Estimated GFR (Cockcroft-Gault) 75.3 Glucose Level 127 mg/dL (70-99) Calcium Level 9.1 mg/dL (8.5-10.1) Phosphorus Level 3.6 mg/dL (2.6-4.7) Magnesium Level 2.6 mg/dL (1.8-2.4) Test 10/18/19 04:57 10/18/19 07:43 Glucose (Fingerstick) 153 mg/dL (70-99) 247 mg/dL (70-99) Medications Current Medications Sodium Chloride 1,000 ml @ 1,000 mls/hr 1X ONCE IV Last administered on 10/17/19at 15:53; Start 10/17/19 at 15:45; Stop 10/17/19 at 16:44; Status DC Ondansetron HCl (Zofran) 4 mg 1X ONCE IVP Last administered on 10/17/19at 16:21; Start 10/17/19 at 16:00; Stop 10/17/19 at 16:01; Status DC Morphine Sulfate (Morphine Sulfate) 4 mg 1X ONCE IV Last administered on 10/17/19at 16:19; Start 10/17/19 at 16:00; Stop 10/17/19 at 16:01; Status DC Sodium Chloride 1,000 ml @ 1,000 mls/hr 1X ONCE IV Last administered on 10/17/19at 16:19; Start 10/17/19 at 16:00; Stop 10/17/19 at 16:59; Status DC Insulin Human Regular 100 ml @ 0 mls/hr 1X ONCE IV Last administered on 10/17/19at 17:49; Start 10/17/19 at 17:30; Stop 10/17/19 at 17:31; Status DC Sodium Chloride 1,000 ml @ 1,000 mls/hr 1X ONCE IV Last administered on at 17:45; Start 10/17/19 at 17:30; Stop 10/17/19 at 18:29; Status DC Ondansetron HCl (Zofran) 4 mg PRN Q8HRS PRN IV NAUSEA/VOMITING; Start 10/17/19 at 17:45; Stop 10/18/19 at 00:31; Status DC Sodium Chloride 1,000 ml @ 500 mls/hr Q2H IV Last administered on 10/17/19at 20:33; Start 10/17/19 at 20:16; Stop 10/17/19 at 22:15; Status DC Sodium Chloride 1,000 ml @ 250 mls/hr Q4H IV ; Start 10/17/19 at 20:18; Stop 10/18/19 at 03:53; Status DC Sodium Chloride 1,000 ml @ 250 mls/hr Q4H IV Last administered on 10/17/19at 22:36; Start 10/17/19 at 20:18; Stop 10/18/19 at 03:53; Status DC Dextrose/Sodium Chloride 1,000 ml @ 250 mls/hr Q4H IV Last administered on 10/18/19at 00:34; Start 10/17/19 at 20:18; Stop 10/18/19 at 03:53; Status DC Insulin Human Regular 100 unit/ Sodium Chloride 101 ml @ 0 mls/hr CONT PRN PRN IV PER PROTOCOL; Start 10/17/19 at 20:15; Stop 10/18/19 at 03:53; Status DC Potassium Chloride/Water 100 ml @ 100 mls/hr PRN Q1HR PRN IV SEE COMMENTS; Start 10/17/19 at 20:15 Potassium Chloride/Water 100 ml @ 100 mls/hr PRN Q1HR PRN IV SEE COMMENTS Last administered on 10/17/19at 21:52; Start 10/17/19 at 20:15 Potassium Chloride/Water 100 ml @ 100 mls/hr PRN Q1HR PRN IV SEE COMMENTS; Start 10/17/19 at 20:15 Magnesium Sulfate 100 ml @ 25 mls/hr DAILY IV ; Start 10/18/19 at 09:00; Stop 10/21/19 at 08:59 Sodium Bicarbonate 50 meq/Sodium Chloride 1,050 ml @ 500 mls/hr Q2H6M PRN IV SEE COMMENTS; Start 10/17/19 at 20:15; Stop 10/18/19 at 03:53; Status DC Ondansetron HCl (Zofran) 4 mg PRN Q6HRS PRN IVP NAUSEA/VOMITING Last administered on 10/18/19at 07:32; Start 10/17/19 at 20:15 Acetaminophen/ Hydrocodone Bitart (Lortab 5/325) 1 tab PRN Q4HRS PRN PO PAIN Last administered on 10/18/19at 00:17; Start 10/17/19 at 20:15 Potassium Chloride/Water 100 ml @ 100 mls/hr Q1H IV Last administered on 10/18/19at 00:56; Start 10/17/19 at 22:45; Stop 10/18/19 at 02:44; Status DC Insulin Glargine (Lantus Syringe) 10 unit QHS SQ Last administered on 10/18/19at 04:08; Start 10/18/19 at 04:00; Stop 10/18/19 at 08:36; Status DC Insulin Human Lispro (HumaLOG) 0-5 UNITS TIDWMEALS SQ Last administered on 10/18/19at 08:22; Start 10/18/19 at 08:00 Dextrose (Dextrose 50%-Water Syringe) 12.5 gm PRN Q15MIN PRN IV SEE COMMENTS; Start 10/18/19 at 04:00 Potassium Chloride/Water 100 ml @ 100 mls/hr Q1H IV Last administered on 10/18/19at 07:17; Start 10/18/19 at 04:00; Stop 10/18/19 at 07:59; Status DC Dextrose/Sodium Chloride 1,000 ml @ 250 mls/hr Q4H IV Last administered on 10/18/19at 04:07; Start 10/18/19 at 04:00; Stop 10/18/19 at 08:35; Status DC Lorazepam (Ativan Inj) 2 mg PRN Q4HRS PRN IVP nausea; Start 10/18/19 at 08:45 Acetaminophen (Tylenol) 650 mg PRN Q6HRS PRN PO pain or fever; Start 10/18/19 at 08:45 Haloperidol (Haldol) 5 mg QHS PO ; Start 10/18/19 at 21:00 Metoclopramide HCl (Reglan) 5 mg TIDACHC PO ; Start 10/18/19 at 11:30 Trazodone HCl (Desyrel) 50 mg QHS PO ; Start 10/18/19 at 21:00 Fluoxetine HCl (PROzac) 40 mg DAILY PO ; Start 10/18/19 at 09:00 Insulin Glargine (Lantus Syringe) 40 unit QHS SQ ; Start 10/18/19 at 21:00 Insulin Human Lispro (HumaLOG) 18 units TIDWMEALS SQ ; Start 10/18/19 at 12:00 Potassium Chloride/Sodium Chloride 1,000 ml @ 100 mls/hr Q10H ONCE IV ; Start 10/18/19 at 09:00; Stop 10/18/19 at 18:59 Active Scripts Active Metoclopramide Hcl 10 Mg/10 Ml Solution 5 Mg PO TIDACHC 30 Days Lantus Solostar (Insulin Glargine,Hum.rec.anlog) 100 Unit/1 Ml Insuln.pen 40 Units SQ QHS MDD 1 30 Days Humalog (Insulin Lispro) 100 Unit/1 Ml Cartridge 18 Unit SQ TIDBFRMEAL 30 Days + Sliding scale 2u for every 50mg/dL greater than 150. Reported Acetaminophen 325 Mg Tablet 2 Tab PO PRN Q6HRS PRN 24 Days Trazodone Hcl 50 Mg Tablet 1 Tab PO QHS Prozac (Fluoxetine Hcl) 40 Mg Capsule 1 Cap PO [id number] Haloperidol 5 Mg Tablet 1 Tab PO QHS Vitals/I & O Vital Sign - Last 24 Hours 10/17/19 10/17/19 10/17/19 10/17/19 15:40 16:19 18:00 18:09 Temp 98.1 98.1 Pulse 111 87 Resp 24 22 B/P (MAP) 139/81 (100) 122/58 (79) Pulse Ox 99 98 95 O2 Delivery Room Air Room Air Room Air Room Air 10/17/19 10/17/19 10/17/19 10/17/19 18:39 19:09 19:09 20:00 Temp 98.4 98.4 Pulse 104 109 109 114 Resp 20 20 20 16 B/P (MAP) 114/70 (85) 132/79 (96) 132/79 (96) 108/64 (79) Pulse Ox 95 95 95 88 O2 Delivery Room Air Room Air Room Air Room Air 10/17/19 10/17/19 10/17/19 10/17/19 20:00 20:27 21:00 22:00 Pulse 82 90 Resp 18 16 20 B/P (MAP) 145/92 (109) 128/72 (90) Pulse Ox 100 99 O2 Delivery Nasal Cannula Nasal Cannula Nasal Cannula O2 Flow Rate 2.0 2.0 2.0 10/17/19 10/18/19 10/18/19 10/18/19 23:00 00:00 00:00 00:17 Temp 99.0 99.0 Pulse 99 86 Resp 16 14 18 B/P (MAP) 106/61 (76) 117/66 (83) Pulse Ox 100 96 96 O2 Delivery Nasal Cannula Nasal Cannula Nasal Cannula Nasal Cannula O2 Flow Rate 2.0 2.0 2.0 2.0 10/18/19 10/18/19 10/18/1910/17/20 01:00 01:17 02:00 03:00 Pulse 90 87 82 Resp 14 12 16 16 B/P (MAP) 116/69 (85) 115/58 (77) 118/63 (81) Pulse Ox 99 98 99 98 O2 Delivery Nasal Cannula Nasal Cannula Nasal Cannula Nasal Cannula O2 Flow Rate 2.0 2.0 2.0 2.0 10/18/19 10/18/19 10/18/19 10/18/19 04:00 04:00 05:00 06:00 Pulse 88 86 86 Resp 16 14 16 B/P (MAP) 118/65 (82) 115/62 (79) 137/68 (91) Pulse Ox 98 97 98 O2 Delivery Nasal Cannula Nasal Cannula Nasal Cannula Nasal Cannula O2 Flow Rate 2.0 2.0 2.0 2.0 10/18/19 10/18/19 10/18/19 07:00 08:00 08:00 Temp 97.8 97.8 Pulse 82 68 Resp 20 B/P (MAP) 111/55 (73) 132/72 (92) Pulse Ox 98 99 O2 Delivery Nasal Cannula Nasal Cannula Nasal Cannula O2 Flow Rate 2.0 2.0 2.0 Intake and Output 10/17/19 10/17/19 10/18/19 15:00 23:00 07:00 Intake Total 6200 ml 3232 ml Output Total 1700 ml 800 ml Balance 4500 ml 2432 ml JEFFREY GERMAN MD Oct 18, 2019 09:01
--- NOTE | 2019-10-18 09:12 | EKG ---
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
[2019-10-18] MEDS ORDERED: MORPHINE SULFATE 2 MG/ML VIAL. IV PRN (09:15)
[2019-10-18] MEDS: FLUoxetine HCL 20 MG CAPSULE PO SCH ×2 (09:16→09:35)
[2019-10-18] MEDS: MAGNESIUM SULFATE 4GM 100 ML IV SCH (09:16)
--- NOTE | 2019-10-18 10:29 | NUR ---
Report called to [facility] on 4N at approx 1030. Transport called to take the pt to room 422. No emesis noted for over an hour at this time.
--- NOTE | 2019-10-18 11:15 | NUR ---
Pt. here from ICU via WC and placed in bed. Rates abd pain at 8/10.
[2019-10-18] MEDS: METOCLOPRAMIDE 5 MG TABLET. PO SCH ×3 (11:20→20:22)
--- NOTE | 2019-10-18 13:09 | NUR ---
SS following for discharge planning. SS reviewed pt chart and discussed with pt RN. Pt is from home and is currently on room air. Pt transferred to room 422. Valerie BEAVER notified.
--- NOTE | 2019-10-18 20:25 | NUR ---
Patient declined full scheduled dose of Lantus; only 20 units administered at this time.
[2019-10-18] MEDS ORDERED: traZODone 50 MG TABLET. PO SCH (21:00)
[2019-10-18] MEDS ORDERED: HALOPERIDOL 5 MG TABLET. PO SCH (21:00)
[2019-10-19 03:00] VITALS: BP 124/68
[2019-10-19 04:09] LABS: HEMOGLOBIN A1C 10.8 % (4.8-5.6)
[2019-10-19 07:00] VITALS: BP 111/64
[2019-10-19 07:22] LABS: CALCIUM 9.2 mg/dL (8.5-10.1); CREATININE 1.3 mg/dL (0.7-1.3); GFR 82.1; POTASSIUM 3.3 mmol/L (3.5-5.1)
[2019-10-19] MEDS: INSULIN LISPRO 300 UNITS/3 ML VIAL. SQ SCH ×5 (08:00→17:34)
[2019-10-19] MEDS: METOCLOPRAMIDE 5 MG TABLET. PO SCH ×3 (08:32→17:31)
[2019-10-19] MEDS: FLUoxetine HCL 20 MG CAPSULE PO SCH (08:32)
[2019-10-19] MEDS: HYDROcodone/APAP 5/325MG 1 TAB TABLET PO PRN (08:33)
[2019-10-19] MEDS: MAGNESIUM SULFATE 4GM 100 ML IV SCH (09:00)
[2019-10-19 11:17] VITALS: BP 111/64
--- NOTE | 2019-10-19 11:29 | PDOC ---
[employer]GRESS NOTE Chief Complaint Chief Complaint Diabetic ketoacidosis. shizophrenia depression, anxiety, History of Present Illness History of Present Illness 10/18/2021 Patient seen and examined He is still complaining of nausea Chart reviewed Discussed with RN Vitals/I&O Vitals/I&O: Vital Signs Date Time Temp Pulse Resp B/P (MAP) Pulse Ox O2 Delivery O2 Flow Rate FiO2 10/19/19 11:17 98.2 87 22 111/64 (80) 99 Room Air 98.2 10/18/19 10:52 2.0 I & O 10/18/19 10/18/19 10/19/19 15:00 23:00 07:00 Intake Total 622 ml 600 ml 4220 ml Output Total 2300 ml 1600 ml 2350 ml Balance -1678 ml -1000 ml 1870 ml Physical Exam General: Alert, Oriented X3, Cooperative, mild distress Heart: Regular rate Lungs: Clear Abdomen: Normal bowel sounds Extremities: No clubbing, No cyanosis Skin: No rashes Labs Labs: Laboratory Tests Test 10/18/19 16:50 10/18/19 19:47 10/19/19 05:50 10/19/19 08:16 Glucose (Fingerstick) 264 mg/dL (70-99) 251 mg/dL (70-99) 223 mg/dL (70-99) Sodium Level 134 mmol/L (136-145) Potassium Level 3.3 mmol/L (3.5-5.1) Chloride Level 94 mmol/L (98-107) Carbon Dioxide Level 30 mmol/L (21-32) Anion Gap 10 (6-14) Blood Urea Nitrogen 20 mg/dL (8-26) Creatinine 1.3 mg/dL (0.7-1.3) Estimated GFR (Cockcroft-Gault) 82.1 Glucose Level 239 mg/dL (70-99) Calcium Level 9.2 mg/dL (8.5-10.1) Phosphorus Level 1.9 mg/dL (2.6-4.7) Magnesium Level 2.0 mg/dL (1.8-2.4) Assessment and Plan Assessmemt and Plan Problems Medical Problems: (1) DKA (diabetic ketoacidoses) Status: Acute DKA, noncompliance, diabetes, hypertension, hyperlipidemia, chronic renal insufficiency, cataracts, visual impairment, tobacco abuse, marijuana use. Plan Possible discharge later today if he feels better in terms of nausea Comment Review of Relevant I have reviewed the following items grupo (where applicable) has been applied. Medications: Current Medications Medications (Trade) Dose Ordered Sig/Stephanie Route PRN Reason Start Time Stop Time Status Last Admin Dose Admin Haloperidol (Haldol) 5 mg QHS PO 10/18/19 21:00 10/18/19 20:22 Metoclopramide HCl (Reglan) 5 mg TIDACHC PO 10/18/19 11:30 10/19/19 08:32 Trazodone HCl (Desyrel) 50 mg QHS PO 10/18/19 21:00 10/18/19 20:21 Insulin Glargine (Lantus Syringe) 40 unit QHS SQ 10/18/19 21:00 10/18/19 20:25 Justicifation of Admission Dx: Justifications for Admission: Justification of Admission Dx: Yes DKA: DKA JU TIAN III DO Oct 19, 2019 11:29
--- NOTE | 2019-10-19 14:58 | NUR ---
SW following. Discussed with RN, pt has discharge order to discharge with self care if nausea resolved. SW will continue to follow.
[2019-10-19 15:59] VITALS: BP 126/74
--- NOTE | 2019-10-19 18:56 | NUR ---
Pt discharged home with self care. Discharge instructions discussed. Pt verbalized understanding. IV removed. Pt assisted to wheelchair and taken to main entrance and secured in cab.
--- NOTE | 2019-10-19 20:15 | DS ---
DATE OF DISCHARGE: 10/19/2019 ADMISSION DIAGNOSIS: Diabetic ketoacidosis. DISCHARGE DIAGNOSES: Resolving diabetic ketoacidosis, history of schizophrenia, noncompliance, diabetes, hypertension, hyperlipidemia, chronic renal insufficiency, cataracts, visual impairment, tobacco abuse and marijuana use. CONSULTS: None. PROCEDURES: None. HOSPITAL COURSE: The patient is a pleasant middle-aged male who basically presented with hyperglycemia of greater than 800 with an anion gap of 24. He was admitted with DKA protocol. Over the past couple of days, he returned to his baseline. This morning, I saw him and examined him, he is doing well, but still has some nausea. His anion gap is clear. We plan to discharge this afternoon if his nausea resolved. DISPOSITION: Home. ACTIVITY: As tolerated. DIET: 1800 calorie ADA. MEDICATIONS: Please see the MRAD. TOTAL TIME: 34 minutes. JU TIAN DO DR: DOUG/zion JOB#: [id number] / [id number]
== END 2019-10-19 18:57 | disposition home or self-care (01) | DRG 637 ==
LOC: ER 15:17 → ED HOLD 17:59 → 1 WEST ICU 19:44 → ER 19:44 → 1 WEST ICU 19:50 → 4 NORTH 10-18 10:55
PROVIDERS: ADMIT Internal Medicine; ATTEND Internal Medicine
DX: E10.10 Type 1 diabetes mellitus with ketoacidosis without coma (principal); N17.0 Acute kidney failure with tubular necrosis; E10.22 Type 1 diabetes mellitus with diabetic chronic kidney disease; E78.00 Pure hypercholesterolemia, unspecified; E78.5 Hyperlipidemia, unspecified; F12.90 Cannabis use, unspecified, uncomplicated; F17.210 Nicotine dependence, cigarettes, uncomplicated; F20.9 Schizophrenia, unspecified; F32.9 Major depressive disorder, single episode, unspecified; F41.9 Anxiety disorder, unspecified; I12.9 Hypertensive chronic kidney disease with stage 1 through stage 4 chronic kidney disease, or unspecified chronic kidney disease; N18.9 Chronic kidney disease, unspecified; Z79.4 Long term (current) use of insulin; Z83.3 Family history of diabetes mellitus; Z91.19 Patient's noncompliance with other medical treatment and regimen
CPT/HCPCS: 36415; 80048; 80053; 80076; 80307; 81001; 82010; 82805; 82962; 83036; 83605; 83690; 83735; 84100; 85025; 87040; 93005; 96361; 96365; 96375; 99285; G0480; J1815; J2270; J2405; J3475; J3480; J3490; J7030; J7042; G0378

== ENCOUNTER 2019-10-23 09:35 | Inpatient (IN) | payer OTHER ==
[2019-10-23] VITALS (14 sets, daily range): BP systolic 94–142; BP diastolic 65–89
[~2019-10-23] VITALS: Ht 172.7 cm; Wt 62.7 kg
[2019-10-23] MEDS ORDERED: IV NORMAL SALINE 1000ML BAG 1,000 ML IV ONE ×3 (11:00→13:45)
[2019-10-23 11:34] LABS: BILIRUBIN,URINE MODERATE (NEG); CLARITY,URINE CLEAR; COLOR,URINE YELLOW; NITRITE,URINE NEGATIVE (NEG); PROTEIN,URINE NEGATIVE (NEG-TRACE)
[2019-10-23 11:42] LABS: BACTERIA,URINE 0 /HPF (0-FEW); RBC,URINE RARE /HPF (0-2)
[2019-10-23 11:43] LABS: HYALINE CASTS, URINE MANY /HPF; SQUAMOUS EPITHELIAL CELL,UR FEW /LPF
[2019-10-23 11:44] LABS: BASO % 0 % (0-3); EOS % 0 % (0-3); HEMATOCRIT 51.4 % (39.0-53.0); LYMPH # 2.3 x10^3/uL (1.0-4.8); LYMPH % 25 % (24-48); MEAN CORPUSCULAR HEMOGLOBIN 31 pg (25-35); MEAN CORPUSCULAR HGB CONC 35 g/dL (31-37); MEAN CORPUSCULAR VOLUME 88 fL (79-100); MONO # 0.8 x10^3/uL (0.0-1.1); MONO % 8 % (0-9); NEUT # 6.1 x10^3/uL (1.8-7.7); NEUT % 66 % (31-73); PLATELET COUNT 404 x10^3/uL (140-400); RED BLOOD COUNT 5.84 x10^6/uL (4.30-5.70); RED CELL DISTRIBUTION WIDTH 12.7 % (11.5-14.5); WHITE BLOOD COUNT 9.2 x10^3/uL (4.0-11.0)
[2019-10-23 12:16] LABS: BASE EXCESS ABG 4 mmol/L (-3-3); HCO3 ABG 25 mmol/L (21-28); PCO2 ABG 31 mmHg (35-46); PO2 ABG 93 mmHg (85-108); SAT O2 ABG 97 % (92-99)
[2019-10-23 12:18] LABS: FIO2 ABG 21
[2019-10-23 12:24] LABS: ALBUMIN 3.8 g/dL (3.4-5.0); ALBUMIN/GLOBULIN RATIO 0.9 (1.0-1.7); CALCIUM 8.8 mg/dL (8.5-10.1); CREATININE 2.6 mg/dL (0.7-1.3); GFR 36.9; MAGNESIUM 2.1 mg/dL (1.8-2.4); POTASSIUM 3.2 mmol/L (3.5-5.1); TOTAL BILIRUBIN 1.4 mg/dL (0.2-1.0); TOTAL PROTEIN 7.9 g/dL (6.4-8.2)
[2019-10-23] MEDS ORDERED: ONDANSETRON PF 4 MG/2 ML VIAL. ONE (12:24)
[2019-10-23] MEDS ORDERED: ONDANSETRON PF 4 MG/2 ML VIAL. IVP ONE (12:30)
--- NOTE | 2019-10-23 12:49 | PHYS DOC ---
Past Medical History Past Medical History: Diabetes-Type I, High Cholesterol, Hypertension, Renal Disease Additional Past Medical Histor: cataracts, blind/visual impairment Past Surgical History: No Surgical History Smoking Status: Current Every Day Smoker Alcohol Use: Rarely Drug Use: Marijuana General Adult EDM: Chief Complaint: BLOOD SUGAR PROBLEM HPI: HPI: Patient is a 24 year old male with history of diabetes, presented to ER with generalized weakness, nausea, vomiting, not feeling well. Patient said his blood sugar was over 500 at home. Patient had been in and out of this hospital due to DKA. Patient claimed that he had his insulin and took it at home. Telma ent denies any abdominal pain, no cough, no fever, no chest pain. Review of Systems: Review of Systems: Constitutional: Denies fever or chills. Positive for generalized weakness. Eyes: Denies change in visual acuity. [] HENT: Denies nasal congestion or sore throat. [] Respiratory: Denies cough or shortness of breath. [] Cardiovascular: Denies chest pain or edema. [] GI: Denies abdominal pain, positive for nausea and vomiting, no diarrhea. : Denies dysuria. [] Musculoskeletal: Denies back pain or joint pain. [] Integument: Denies rash. [] Neurologic: Denies headache, focal weakness or sensory changes. [] Endocrine: Denies polyuria or polydipsia. [] Lymphatic: Denies swollen glands. [] Psychiatric: Denies depression or anxiety. [] Heart Score: Risk Factors: Risk Factors: DM, Current or recent (<one month) smoker, HTN, HLP, family history of CAD, obesity. Risk Scores: Score 0 - 3: 2.5% MACE over next 6 weeks - Discharge Home Score 4 - 6: 20.3% MACE over next 6 weeks - Admit for Clinical Observation Score 7 - 10: 72.7% MACE over next 6 weeks - Early Invasive Strategies Current Medications: Current Medications Medications (Trade) Dose Ordered Sig/Stephanie Start Time Stop Time Status Last Admin Dose Admin Ondansetron HCl (Zofran) 4 mg 1X ONCE 10/23/19 12:30 10/23/19 12:31 DC 10/23/19 12:27 4 MG Potassium Chloride/Sodium Chloride 1,000 ml @ 100 mls/hr Q10H ONCE 10/23/19 13:00 10/23/19 22:59 Sodium Chloride 1,000 ml @ 1,000 mls/hr 1X ONCE 10/23/19 12:30 10/23/19 13:29 10/23/19 12:27 1,000 MLS/HR Allergies: Allergies: Allergies Coded Allergies Type Severity Reaction Last Updated Verified No Known Drug Allergies 10/17/19 No Physical Exam: PE: Constitutional: Well developed, appears dehydrated, mild acute distress, nontoxic appearing. HENT: Normocephalic, atraumatic, bilateral external ears normal, oropharynx is dry. No oral exudates, nose normal. [] Eyes: PERRLA, EOMI, conjunctiva normal, no discharge. [] Neck: Normal range of motion, no tenderness, supple, no stridor. [] Cardiovascular:Heart rate regular rhythm, no murmur [] Lungs & Thorax: Bilateral breath sounds clear to auscultation [] Abdomen: Bowel sounds normal, soft, no tenderness, no masses, no pulsatile masses. [] Skin: Warm, dry, no erythema, no rash. [] Back: No tenderness, no CVA tenderness. [] Extremities: No tenderness, no cyanosis, no clubbing, ROM intact, no edema. [] Neurologic: Alert and oriented X 3, normal motor function, normal sensory function, no focal deficits noted. [] Psychologic: Affect normal, judgement normal, mood normal. [] Current Patient Data: Labs: Laboratory Tests Test 10/23/19 10:53 10/23/19 11:13 10/23/19 11:20 10/23/19 11:56 Glucose (Fingerstick) 535 mg/dL (70-99) *H White Blood Count 9.2 x10^3/uL (4.0-11.0) Red Blood Count 5.84 x10^6/uL (4.30-5.70) H Hemoglobin 18.0 g/dL (13.0-17.5) H Hematocrit 51.4 % (39.0-53.0) Mean Corpuscular Volume 88 fL (79-100) Mean Corpuscular Hemoglobin 31 pg (25-35) Mean Corpuscular Hemoglobin Concent 35 g/dL (31-37) Red Cell Distribution Width 12.7 % (11.5-14.5) Platelet Count 404 x10^3/uL (140-400) H Neutrophils (%) (Auto) 66 % (31-73) Lymphocytes (%) (Auto) 25 % (24-48) Monocytes (%) (Auto) 8 % (0-9) Eosinophils (%) (Auto) 0 % (0-3) Basophils (%) (Auto) 0 % (0-3) Neutrophils # (Auto) 6.1 x10^3/uL (1.8-7.7) Lymphocytes # (Auto) 2.3 x10^3/uL (1.0-4.8) Monocytes # (Auto) 0.8 x10^3/uL (0.0-1.1) Eosinophils # (Auto) 0.0 x10^3/uL (0.0-0.7) Basophils # (Auto) 0.0 x10^3/uL (0.0-0.2) Urine Collection Type Unknown Urine Color Yellow Urine Clarity Clear Urine pH 5.0 (<5.0-8.0) Urine Specific [place] 1.025 (1.000-1.030) Urine Protein Negative mg/dL (NEG-TRACE) Urine Glucose (UA) >=1000 mg/dL (NEG) Urine Ketones (Stick) 15 mg/dL (NEG) Urine Blood Negative (NEG) Urine Nitrite Negative (NEG) Urine Bilirubin Moderate (NEG) Urine Urobilinogen Dipstick 1.0 mg/dL (0.2 mg/dL) Urine Leukocyte Esterase Negative (NEG) Urine RBC Rare /HPF (0-2) Urine WBC 1-4 /HPF (0-4) Urine Squamous Epithelial Cells Few /LPF Urine Bacteria 0 /HPF (0-FEW) Urine Hyaline Casts Many /HPF Urine Mucus Mod /LPF Sodium Level 131 mmol/L (136-145) L Potassium Level 3.2 mmol/L (3.5-5.1) L Chloride Level 79 mmol/L (98-107) L Carbon Dioxide Level 30 mmol/L (21-32) Anion Gap 22 (6-14) H Blood Urea Nitrogen 51 mg/dL (8-26) H Creatinine 2.6 mg/dL (0.7-1.3) H Estimated GFR (Cockcroft-Gault) 36.9 BUN/Creatinine Ratio 20 (6-20) Glucose Level 529 mg/dL (70-99) *H Calcium Level 8.8 mg/dL (8.5-10.1) Magnesium Level 2.1 mg/dL (1.8-2.4) Total Bilirubin 1.4 mg/dL (0.2-1.0) H Aspartate Amino Transferase (AST) 13 U/L (15-37) L Alanine Aminotransferase (ALT) 14 U/L (16-63) L Alkaline Phosphatase 87 U/L (46-116) Total Protein 7.9 g/dL (6.4-8.2) Albumin 3.8 g/dL (3.4-5.0) Albumin/Globulin Ratio 0.9 (1.0-1.7) L Lipase 116 U/L (73-393) Acetone Level Sm pos (NEG) Test 10/23/19 12:05 O2 Saturation 97 % (92-99) Arterial Blood pH 7.53 (7.35-7.45) H Arterial Blood pCO2 at Patient Temp 31 mmHg (35-46) L Arterial Blood pO2 at Patient Temp 93 mmHg (85-108) Arterial Blood HCO3 25 mmol/L (21-28) Arterial Blood Base Excess 4 mmol/L (-3-3) H FiO2 21 Laboratory Tests 10/23/19 11:13 Laboratory Tests 10/23/19 11:56 Vital Signs: Vital Signs Date Time Temp Pulse Resp B/P (MAP) Pulse Ox O2 Delivery O2 Flow Rate FiO2 10/23/19 11:01 98.6 112 18 121/78 (92) 100 Room Air 98.6 EKG: EKG: [] Radiology/Procedures: Radiology/Procedures: [] Course & Med Decision Making: Course & Med Decision Making Pertinent Labs and Imaging studies reviewed. (See chart for details) Patient is a 24-year-old male who was noncompliant with medication treatment, history of diabetes, frequent admission here due to DKA, was felt to be dehydrated and hyperglycemic. Patient was given 3 L normal saline in the ER. He felt much better. His lab work showed an anion gap of 22, he will be admitted to ICU. Discussed with Dr. Sutton who agreed to admit the patient. Aaronon Disclaimer: Dragon Disclaimer: This electronic medical record was generated, in whole or in part, using a voice recognition dictation system. Departure Departure Impression: Primary Impression: Hyperglycemia due to diabetes mellitus Additional Impressions: Dehydration Acute renal failure Disposition: ADMITTED INPATIENT Admitting Physician: JESSICA (RIFFEL) Condition: IMPROVED Referrals: UNKNOWN PCP NAME (PCP) Justicifation of Admission Dx: Justifications for Admission: Justification of Admission Dx: Yes DKA: DKA ROSA RAVI DO Oct 23, 2019 12:49
[2019-10-23] MEDS ORDERED: POTASSIUM CL 40MEQ IN 0.9%NACL 1,000 ML IV ONE (13:00)
[2019-10-23] MEDS ORDERED: IV NORMAL SALINE 1000ML BAG 1,000 ML IV SCH (13:27)
[2019-10-23] MEDS ORDERED: ONDANSETRON PF 4 MG/2 ML VIAL. IV PRN ×2 (13:30→15:30)
[2019-10-23] MEDS ORDERED: INSULIN REGULAR 100 UNIT/ML 3ML VIAL. IV ONE (13:45)
--- NOTE | 2019-10-23 15:25 | PDOC1 ---
History and Physical Date of Admission Date of Admission DATE: 10/23/19 TIME: 15:10 Identification/Chief Complaint Chief Complaint Nausea Source Source: Chart review, Patient History of Present Illness History of Present Illness Mr Molina is a 24yo M w/ PMHx Type 1 DM, bilateral cataracts presented with some nausea and vomiting, had some associated diarrhea, has been occurring for a couple of days, notes his blood sugars been in the 500s but has not been taking his insulin. He has associated abdominal pain 10/26. Does not radiate is epigastric. He denies any abdominal pain, chest pain, shortness of air, dizziness at this time, headache, fever, diarrhea, numbness or tingling, focal weakness, vision changes. He states he had some water this morning and try to keep down some broth. He states he has not actually ate food for the last 5 days. He did smoke marijuana yesteerday.. Patient states he has not "really" been taking his insulin due to he has not been eating any food. Currently only feels nauseated. Abdomen is tender in epigastrium. He vomited in ED and still c/o dry heaves. Just admitted and discharged September 05 for DKA. Admitted 1 week ago for the same again. No recent sick contacts he lives at home alone has his brother and sister check on him occasionally. Glucose 529, Bilirubin 1.4, Na 131, K 3.2, BUN 51, Cr 2.6, AG 22, ABG 7.53//. Past Medical History Cardiovascular: Hyperlipidemia GI: No pertinent hx Heme/Onc: No pertinent hx Hepatobiliary: No pertinent hx Psych: Addictions Endocrine: Diabetes Past Surgical History Past Surgical History: Cataract Removal Family History Family History: Hypertension Social History Smoke: 1 pack per day ALCOHOL: none Drugs: Marijuana Current Problem List Problem List Problems Medical Problems: (1) Acute renal failure Status: Acute (2) Dehydration Status: Acute (3) Hyperglycemia due to diabetes mellitus Status: Acute Current Medications Current Medications Current Medications Sodium Chloride 1,000 ml @ 1,000 mls/hr 1X ONCE IV Last administered on 10/23/19at 11:11; Start 10/23/19 at 11:00; Stop 10/23/19 at 11:59; Status DC Ondansetron HCl (Zofran) 4 mg STK-MED ONCE .ROUTE ; Start 10/23/19 at 12:24; Stop 10/23/19 at 12:24; Status DC Sodium Chloride 1,000 ml @ 1,000 mls/hr 1X ONCE IV Last administered on 10/23/19at 12:27; Start 10/23/19 at 12:30; Stop 10/23/19 at 13:29; Status DC Ondansetron HCl (Zofran) 4 mg 1X ONCE IVP Last administered on 10/23/19at 12:27; Start 10/23/19 at 12:30; Stop 10/23/19 at 12:31; Status DC Potassium Chloride/Sodium Chloride 1,000 ml @ 100 mls/hr Q10H ONCE IV Last administered on 10/23/19at 13:00; Start 10/23/19 at 13:00; Stop 10/23/19 at 22:59 Ondansetron HCl (Zofran) 4 mg PRN Q8HRS PRN IV NAUSEA/VOMITING; Start 10/23/19 at 13:30; Stop 10/24/19 at 13:29 Sodium Chloride 1,000 ml @ 100 mls/hr Q10H IV ; Start 10/23/19 at 13:27; Stop 10/24/19 at 13:26 Insulin Human Regular (HumuLIN R VIAL) 10 unit 1X ONCE IV Last administered on 10/23/19at 14:16; Start 10/23/19 at 13:45; Stop 10/23/19 at 13:46; Status DC Sodium Chloride 1,000 ml @ 1,000 mls/hr 1X ONCE IV Last administered on 10/23/19at 14:16; Start 10/23/19 at 13:45; Stop 10/23/19 at 14:44; Status DC Active Scripts Active Metoclopramide Hcl 10 Mg/10 Ml Solution 5 Mg PO TIDACHC 30 Days Lantus Solostar (Insulin Glargine,Hum.rec.anlog) 100 Unit/1 Ml Insuln.pen 40 Units SQ QHS MDD 1 30 Days Humalog (Insulin Lispro) 100 Unit/1 Ml Cartridge 18 Unit SQ TIDBFRMEAL 30 Days + Sliding scale 2u for every 50mg/dL greater than 150. Reported Acetaminophen 325 Mg Tablet 2 Tab PO PRN Q6HRS PRN 24 Days Trazodone Hcl 50 Mg Tablet 1 Tab PO QHS Prozac (Fluoxetine Hcl) 40 Mg Capsule 1 Cap PO [id number] Haloperidol 5 Mg Tablet 1 Tab PO QHS Allergies Allergies: Coded Allergies: No Known Drug Allergies (Unverified , 10/17/19) ROS General: YES: Fatigue, Malaise, Appetite; No: Chills, Night Sweats, Other PSYCHOLOGICAL ROS: No: Anxiety, Behavioral Disorder, Concentration difficultie, Decreased libido, Depression, Disorientation, Hallucinations, Hostility, Irritablity, Memory difficulties, Mood Swings, Obsessive thoughts, Physical abuse, Sexual abuse, Sleep disturbances, Suicidal ideation, Other Eyes: No Blurry vision, No Decreased vision, No Double vision, No Dry eyes, No Excessive tearing, No Eye Pain, No Itchy Eyes, No Loss of vision, No Photophobia, No Scotomata, No Uses contacts, No Uses glasses, No Other HEENT: No: Heacaches, Visual Changes, Hearing change, Nasal congestion, Nasal discharge, Oral lesions, Sinus pain, Sore Throat, Epistaxis, Sneezing, Snoring, Tinnitus, Vertigo, Vocal changes, Other ALLERGY AND IMMUNOLOGY: No: Hives, Insect Bite Sensitivity, Itchy/Watery Eyes, Nasal Congestion, Post Nasal Drip, Seasonal Allergies, Other Hematological and Lymphatic: No: Bleeding Problems, Blood Clots, Blood Transfusions, Brusing, Night Sweats, Pallor, Swollen Lymph Nodes, Other ENDOCRINE: No: Breast Changes, Galactorrhea, Hair Pattern Changes, Hot Flashes, Malaise/lethargy, Mood Swings, Palpitations, Polydipsia/polyuria, Skin Changes, Temperature Intolerance, Unexpected Weight Changes, Other Breast: No New/Changing Breast Lumps, No Nipple changes, No Nipple discharge, No Other Respiratory: No: Cough, Hemoptysis, Orthopnea, Pleuritic Pain, Shortness of breath, SOB with excertion, Sputum Changes, Stridor, Tachypnea, Wheezing, Other Cardiovascular: No Chest Pain, No Palpitations, No Orthopnea, No Paroxysmal Noc. Dyspnea, No Edema, No Lt Headedness, No Other Gastrointestinal: Yes Nausea, Yes Vomiting, Yes Abdominal Pain, Yes Diarrhea; No Constipation, No Melena, No Hematochezia, No Other Genitourinary: No Dysuria, No Frequency, No Incontinence, No Hematuria, No Retention, No Discharge, No Urgency, No Pain, No Flank Pain, No Other, No , No , No , No , No , No , No Musculoskeletal: Yes Gait Disturbance; No Joint Pain, No Joint Stiffness, No Joint Swelling, No Muscle Pain, No Muscular Weakness, No Pain In:, No Swelling In:, No Other Neurological: No Behavorial Changes, No Bowel/Bladder ControlChng, No Confusion, No Dizziness, No Gait Disturbance, No Headaches, No Impaired Coord/balance, No Memory Loss, No Numbness/Tingling, No Seizures, No Speech Prob lems, No Tremors, No Visual Changes, No Weakness, No Other Skin: No Dry Skin, No Eczema, No Hair Changes, No Lumps, No Mole Changes, No Mottling, No Nail Changes, No Pruritus, No Rash, No Skin Lesion Changes, No Other, No Acne Physical Exam General: Alert, Oriented X3, Cooperative, moderate distress HEENT: Atraumatic, PERRLA, EOMI, Mucous membr. moist/pink Lungs: Clear to auscultation, Normal air movement Heart: S1S2, RRR, no thrills, no rubs, no gallops, no murmurs Abdomen: Normal bowel sounds, No hepatosplenomegaly, No masses, Other (Epigastric tenderness) Rectal Exam: not examined Extremities: No clubbing, No cyanosis, No edema, Normal pulses, No tenderness/swelling Skin: No rashes, No breakdown, No significant lesion Neuro: Normal speech, Strength at 5/5 X4 ext, Normal tone, Sensation intact, Cranial nerves 3-12 NL, Reflexes 2+ Psych/Mental Status: Mental status NL, Mood NL Vitals Vitals Vital Signs Date Time Temp Pulse Resp B/P (MAP) Pulse Ox O2 Delivery O2 Flow Rate FiO2 10/23/19 11:01 98.6 112 18 121/78 (92) 100 Room Air 98.6 Labs Labs Laboratory Tests Test 10/23/19 10:53 10/23/19 11:13 10/23/19 11:20 10/23/19 11:56 Glucose (Fingerstick) 535 mg/dL (70-99) White Blood Count 9.2 x10^3/uL (4.0-11.0) Red Blood Count 5.84 x10^6/uL (4.30-5.70) Hemoglobin 18.0 g/dL (13.0-17.5) Hematocrit 51.4 % (39.0-53.0) Mean Corpuscular Volume 88 fL (79-100) Mean Corpuscular Hemoglobin 31 pg (25-35) Mean Corpuscular Hemoglobin Concent 35 g/dL (31-37) Red Cell Distribution Width 12.7 % (11.5-14.5) Platelet Count 404 x10^3/uL (140-400) Neutrophils (%) (Auto) 66 % (31-73) Lymphocytes (%) (Auto) 25 % (24-48) Monocytes (%) (Auto) 8 % (0-9) Eosinophils (%) (Auto) 0 % (0-3) Basophils (%) (Auto) 0 % (0-3) Neutrophils # (Auto) 6.1 x10^3/uL (1.8-7.7) Lymphocytes # (Auto) 2.3 x10^3/uL (1.0-4.8) Monocytes # (Auto) 0.8 x10^3/uL (0.0-1.1) Eosinophils # (Auto) 0.0 x10^3/uL (0.0-0.7) Basophils # (Auto) 0.0 x10^3/uL (0.0-0.2) Urine Collection Type Unknown Urine Color Yellow Urine Clarity Clear Urine pH 5.0 (<5.0-8.0) Urine Specific [place] 1.025 (1.000-1.030) Urine Protein Negative mg/dL (NEG-TRACE) Urine Glucose (UA) >=1000 mg/dL (NEG) Urine Ketones (Stick) 15 mg/dL (NEG) Urine Blood Negative (NEG) Urine Nitrite Negative (NEG) Urine Bilirubin Moderate (NEG) Urine Urobilinogen Dipstick 1.0 mg/dL (0.2 mg/dL) Urine Leukocyte Esterase Negative (NEG) Urine RBC Rare /HPF (0-2) Urine WBC 1-4 /HPF (0-4) Urine Squamous Epithelial Cells Few /LPF Urine Bacteria 0 /HPF (0-FEW) Urine Hyaline Casts Many /HPF Urine Mucus Mod /LPF Sodium Level 131 mmol/L (136-145) Potassium Level 3.2 mmol/L (3.5-5.1) Chloride Level 79 mmol/L (98-107) Carbon Dioxide Level 30 mmol/L (21-32) Anion Gap 22 (6-14) Blood Urea Nitrogen 51 mg/dL (8-26) Creatinine 2.6 mg/dL (0.7-1.3) Estimated GFR (Cockcroft-Gault) 36.9 BUN/Creatinine Ratio 20 (6-20) Glucose Level 529 mg/dL (70-99) Calcium Level 8.8 mg/dL (8.5-10.1) Magnesium Level 2.1 mg/dL (1.8-2.4) Total Bilirubin 1.4 mg/dL (0.2-1.0) Aspartate Amino Transf (AST/SGOT) 13 U/L (15-37) Alanine Aminotransferase (ALT/SGPT) 14 U/L (16-63) Alkaline Phosphatase 87 U/L (46-116) Total Protein 7.9 g/dL (6.4-8.2) Albumin 3.8 g/dL (3.4-5.0) Albumin/Globulin Ratio 0.9 (1.0-1.7) Lipase 116 U/L (73-393) Acetone Level Sm pos (NEG) Test 10/23/19 12:05 10/23/19 15:06 O2 Saturation 97 % (92-99) Arterial Blood pH 7.53 (7.35-7.45) Arterial Blood pCO2 at Patient Temp 31 mmHg (35-46) Arterial Blood pO2 at Patient Temp 93 mmHg (85-108) Arterial Blood HCO3 25 mmol/L (21-28) Arterial Blood Base Excess 4 mmol/L (-3-3) FiO2 21 Glucose (Fingerstick) 426 mg/dL (70-99) Laboratory Tests Test 10/23/19 10:53 10/23/19 11:13 10/23/19 11:20 10/23/19 11:56 Glucose (Fingerstick) 535 mg/dL (70-99) White Blood Count 9.2 x10^3/uL (4.0-11.0) Red Blood Count 5.84 x10^6/uL (4.30-5.70) Hemoglobin 18.0 g/dL (13.0-17.5) Hematocrit 51.4 % (39.0-53.0) Mean Corpuscular Volume 88 fL (79-100) Mean Corpuscular Hemoglobin 31 pg (25-35) Mean Corpuscular Hemoglobin Concent 35 g/dL (31-37) Red Cell Distribution Width 12.7 % (11.5-14.5) Platelet Count 404 x10^3/uL (140-400) Neutrophils (%) (Auto) 66 % (31-73) Lymphocytes (%) (Auto) 25 % (24-48) Monocytes (%) (Auto) 8 % (0-9) Eosinophils (%) (Auto) 0 % (0-3) Basophils (%) (Auto) 0 % (0-3) Neutrophils # (Auto) 6.1 x10^3/uL (1.8-7.7) Lymphocytes # (Auto) 2.3 x10^3/uL (1.0-4.8) Monocytes # (Auto) 0.8 x10^3/uL (0.0-1.1) Eosinophils # (Auto) 0.0 x10^3/uL (0.0-0.7) Basophils # (Auto) 0.0 x10^3/uL (0.0-0.2) Urine Collection Type Unknown Urine Color Yellow Urine Clarity Clear Urine pH 5.0 (<5.0-8.0) Urine Specific [place] 1.025 (1.000-1.030) Urine Protein Negative mg/dL (NEG-TRACE) Urine Glucose (UA) >=1000 mg/dL (NEG) Urine Ketones (Stick) 15 mg/dL (NEG) Urine Blood Negative (NEG) Urine Nitrite Negative (NEG) Urine Bilirubin Moderate (NEG) Urine Urobilinogen Dipstick 1.0 mg/dL (0.2 mg/dL) Urine Leukocyte Esterase Negative (NEG) Urine RBC Rare /HPF (0-2) Urine WBC 1-4 /HPF (0-4) Urine Squamous Epithelial Cells Few /LPF Urine Bacteria 0 /HPF (0-FEW) Urine Hyaline Casts Many /HPF Urine Mucus Mod /LPF Sodium Level 131 mmol/L (136-145) Potassium Level 3.2 mmol/L (3.5-5.1) Chloride Level 79 mmol/L (98-107) Carbon Dioxide Level 30 mmol/L (21-32) Anion Gap 22 (6-14) Blood Urea Nitrogen 51 mg/dL (8-26) Creatinine 2.6 mg/dL (0.7-1.3) Estimated GFR (Cockcroft-Gault) 36.9 BUN/Creatinine Ratio 20 (6-20) Glucose Level 529 mg/dL (70-99) Calcium Level 8.8 mg/dL (8.5-10.1) Magnesium Level 2.1 mg/dL (1.8-2.4) Total Bilirubin 1.4 mg/dL (0.2-1.0) Aspartate Amino Transf (AST/SGOT) 13 U/L (15-37) Alanine Aminotransferase (ALT/SGPT) 14 U/L (16-63) Alkaline Phosphatase 87 U/L (46-116) Total Protein 7.9 g/dL (6.4-8.2) Albumin 3.8 g/dL (3.4-5.0) Albumin/Globulin Ratio 0.9 (1.0-1.7) Lipase 116 U/L (73-393) Acetone Level Sm pos (NEG) Test 10/23/19 12:05 10/23/19 15:06 O2 Saturation 97 % (92-99) Arterial Blood pH 7.53 (7.35-7.45) Arterial Blood pCO2 at Patient Temp 31 mmHg (35-46) Arterial Blood pO2 at Patient Temp 93 mmHg (85-108) Arterial Blood HCO3 25 mmol/L (21-28) Arterial Blood Base Excess 4 mmol/L (-3-3) FiO2 21 Glucose (Fingerstick) 426 mg/dL (70-99) VTE Prophylaxis Ordered VTE Prophylaxis Devices: No VTE Pharmacological Prophylaxi: Yes Assessment/Plan Assessment/Plan A/P: Intractable nausea and vomiting - likely gastroenteritis vs gastroparesis, NPO. States he is had nausea and vomiting since the DKA - Hyperglycemia, ACUTE Hypokalemia - Dehydrated Hyponatremia - 2/2 DKA, will hydrate Hyperbilirubinemia - constipated, will cont stool softeners Acute Renal insufficiency - vasomotor nephropathy, will hydrate NONCOMPLIANCE DUE TO LACK OF FUNDS THC ABUSE - counseled, may be contributing to vomiting Smoker - counseled on cessation Cataracts - s/p surgical correction DM1 - A1c is 15.5 this past 12/2018, repeat is 15.2 as of 04/2019, then 8.3 08/2019 FEN - NPO PPX - heparin FULL CODE Dispo - inpatient for at least 2 midnights. Placement may be necessary due to his continued poor self care. Justicifation of Admission Dx: Justifications for Admission: Justification of Admission Dx: Yes DKA: DKA PRASHANTH JAMES MD Oct 23, 2019 15:25
[2019-10-23] MEDS ORDERED: POTASSIUM CHLORIDE 10MEQ 100 ML IV PRN ×3 (15:30)
[2019-10-23] MEDS ORDERED: INSULIN REGULAR VIAL 100 UNIT in IV NORMAL SALINE 100ML 100 ML IV PRN (15:30)
[2019-10-23 15:37] LABS: SALIC 3.8 mg/dL (2.8-20.0)
[2019-10-23 19:31] LABS: CALCIUM 7.8 mg/dL (8.5-10.1); CREATININE 2.2 mg/dL (0.7-1.3); GFR 44.7; MAGNESIUM 2.1 mg/dL (1.8-2.4); PHOSPHORUS 1.3 mg/dL (2.6-4.7)
[2019-10-23 19:35] LABS: POTASSIUM 2.9 mmol/L (3.5-5.1)
--- NOTE | 2019-10-23 19:49 | NUR ---
1515 Adm from ER DKA/dehydration. Here couple weeks ago. Admits to non compliance. Wants water... able to take ice chips till emesis then told had to slow down .Unhappy w prospect . Insulin gtt w check per glucostableizer, #3 NS infused. 4th NS bag slowed to100 per order. KCL /1000 NS also at 100/H per order. see flow sheets for specifics
[2019-10-23] MEDS: POTASSIUM PHOS,M-BASIC-D-BASIC 10 MMOL in IV NORMAL SALINE 100ML 100 ML IV SCH ×2 (20:13→22:00)
[2019-10-23] MEDS: POTASSIUM CL 40MEQ IN 0.9%NACL 1,000 ML IV SCH (20:27)
[2019-10-24] VITALS (14 sets, daily range): BP systolic 94–164; BP diastolic 57–100
[2019-10-24] MEDS: POTASSIUM PHOS,M-BASIC-D-BASIC 10 MMOL in IV NORMAL SALINE 100ML 100 ML IV SCH (00:03)
[2019-10-24] MEDS: POTASSIUM CL 40MEQ IN 0.9%NACL 1,000 ML IV SCH ×3 (00:04→22:06)
[2019-10-24] MEDS: POTASSIUM CHLORIDE 10MEQ 100 ML IV SCH ×2 (02:09→03:02)
[2019-10-24 06:19] LABS: CALCIUM 8.3 mg/dL (8.5-10.1); CREATININE 2.1 mg/dL (0.7-1.3); GFR 47.2; PHOSPHORUS 2.3 mg/dL (2.6-4.7); POTASSIUM 3.5 mmol/L (3.5-5.1)
[2019-10-24] MEDS ORDERED: INSULIN GLARGINE SYRINGE. SQ ONE (09:00)
[2019-10-24] MEDS ORDERED: ACETAMINOPHEN 325 MG TABLET. PO PRN (09:00)
[2019-10-24] MEDS ORDERED: MAGNESIUM SULFATE 4GM 100 ML IV PRN (09:00)
[2019-10-24] MEDS ORDERED: DEXTROSE 50% 25 GM / 50ML DISP.SYRIN. IV PRN (09:00)
[2019-10-24] MEDS: ONDANSETRON PF 4 MG/2 ML VIAL. IV PRN ×2 (09:40→21:01)
[2019-10-24] MEDS: FLUoxetine HCL 20 MG CAPSULE PO SCH (09:40)
[2019-10-24] MEDS: METOCLOPRAMIDE ORAL SOLN 10 MG/10 ML SOLUTION. PO SCH ×3 (09:41→20:42)
--- NOTE | 2019-10-24 10:37 | NUR ---
SS following for discharge planning. SS reviewed pt chart and discussed with pt RN. Pt is from home and is currently on room air. Pt non-compliant with medical needs at home. Pt's sister is DPOA for medical. Pt declining LTC placement. Discharge plan is currently to home when ready. SS will continue to follow for discharge planning.
[2019-10-24] MEDS: INSULIN LISPRO 300 UNITS/3 ML VIAL. SQ SCH ×4 (11:07→16:03)
--- NOTE | 2019-10-24 14:13 | PDOC ---
PROGRESS NOTES Chief Complaint Chief Complaint Intractable nausea and vomiting - likely gastroenteritis vs gastroparesis, NPO. States he is had nausea and vomiting since the DKA - Hyperglycemia, ACUTE Hypokalemia - Dehydrated Hyponatremia - 2/2 DKA, will hydrate Hyperbilirubinemia - constipated, will cont stool softeners Acute Renal insufficiency - vasomotor nephropathy, will hydrate NONCOMPLIANCE DUE TO LACK OF FUNDS THC ABUSE - counseled, may be contributing to vomiting Smoker - counseled on cessation Cataracts - s/p surgical correction DM1 - A1c is 8.3 08/2019 History of Present Illness History of Present Illness off insulin gtt still nausea and vomiting, try out of ICU, start home meds cont current liquid diet, Vitals Vitals Vital Signs Date Time Temp Pulse Resp B/P (MAP) Pulse Ox O2 Delivery O2 Flow Rate FiO2 10/24/19 11:00 97.7 84 18 154/95 (114) 100 Room Air 97.7 Physical Exam General: Alert, Oriented X3, Cooperative, moderate distress Lungs: Clear Abdomen: Normal bowel sounds, No hepatosplenomegaly, No masses, Other (Ep igastric tenderness) Extremities: No clubbing, No cyanosis, No edema, Normal pulses, No tenderness/swelling Skin: No rashes, No breakdown, No significant lesion Labs LABS Laboratory Tests Test 10/23/19 15:06 10/23/19 16:37 10/23/19 18:05 10/23/19 19:00 Glucose (Fingerstick) 426 mg/dL (70-99) 401 mg/dL (70-99) 336 mg/dL (70-99) Sodium Level 138 mmol/L (136-145) Potassium Level 2.9 mmol/L (3.5-5.1) Chloride Level 95 mmol/L (98-107) Carbon Dioxide Level 29 mmol/L (21-32) Anion Gap 14 (6-14) Blood Urea Nitrogen 42 mg/dL (8-26) Creatinine 2.2 mg/dL (0.7-1.3) Estimated GFR (Cockcroft-Gault) 44.7 Glucose Level 290 mg/dL (70-99) Calcium Level 7.8 mg/dL (8.5-10.1) Phosphorus Level 1.3 mg/dL (2.6-4.7) Magnesium Level 2.1 mg/dL (1.8-2.4) Test 10/23/19 19:22 10/23/19 20:32 10/23/19 21:35 10/23/19 22:35 Glucose (Fingerstick) 246 mg/dL (70-99) 198 mg/dL (70-99) 151 mg/dL (70-99) 103 mg/dL (70-99) Test 10/23/19 23:35 10/24/19 00:33 10/24/19 01:37 10/24/19 02:39 Glucose (Fingerstick) 89 mg/dL (70-99) 98 mg/dL (70-99) 121 mg/dL (70-99) 134 mg/dL (70-99) Test 10/24/19 03:41 10/24/19 04:44 10/24/19 05:45 10/24/19 06:02 Glucose (Fingerstick) 170 mg/dL (70-99) 179 mg/dL (70-99) 123 mg/dL (70-99) Sodium Level 141 mmol/L (136-145) Potassium Level 3.5 mmol/L (3.5-5.1) Chloride Level 101 mmol/L (98-107) Carbon Dioxide Level 31 mmol/L (21-32) Anion Gap 9 (6-14) Blood Urea Nitrogen 38 mg/dL (8-26) Creatinine 2.1 mg/dL (0.7-1.3) Estimated GFR (Cockcroft-Gault) 47.2 Glucose Level 157 mg/dL (70-99) Calcium Level 8.3 mg/dL (8.5-10.1) Phosphorus Level 2.3 mg/dL (2.6-4.7) Test 10/24/19 07:07 10/24/19 08:12 10/24/19 10:41 Glucose (Fingerstick) 114 mg/dL (70-99) 110 mg/dL (70-99) 159 mg/dL (70-99) Assessment and Plan Assessmemt and Plan Problems Medical Problems: (1) Acute renal failure Status: Acute (2) Dehydration Status: Acute (3) Hyperglycemia due to diabetes mellitus Status: Acute Comment Review of Relevant I have reviewed the following items grupo (where applicable) has been applied. Labs Laboratory Tests Test 10/23/19 02:45 10/23/19 10:53 10/23/19 11:13 10/23/19 11:20 Salicylates Level 3.8 mg/dL (2.8-20.0) Salicylate Last Dose Date 10/22/19 Salicylate Last Dose Time 2100 Glucose (Fingerstick) 535 mg/dL (70-99) White Blood Count 9.2 x10^3/uL (4.0-11.0) Red Blood Count 5.84 x10^6/uL (4.30-5.70) Hemoglobin 18.0 g/dL (13.0-17.5) Hematocrit 51.4 % (39.0-53.0) Mean Corpuscular Volume 88 fL (79-100) Mean Corpuscular Hemoglobin 31 pg (25-35) Mean Corpuscular Hemoglobin Concent 35 g/dL (31-37) Red Cell Distribution Width 12.7 % (11.5-14.5) Platelet Count 404 x10^3/uL (140-400) Neutrophils (%) (Auto) 66 % (31-73) Lymphocytes (%) (Auto) 25 % (24-48) Monocytes (%) (Auto) 8 % (0-9) Eosinophils (%) (Auto) 0 % (0-3) Basophils (%) (Auto) 0 % (0-3) Neutrophils # (Auto) 6.1 x10^3/uL (1.8-7.7) Lymphocytes # (Auto) 2.3 x10^3/uL (1.0-4.8) Monocytes # (Auto) 0.8 x10^3/uL (0.0-1.1) Eosinophils # (Auto) 0.0 x10^3/uL (0.0-0.7) Basophils # (Auto) 0.0 x10^3/uL (0.0-0.2) Urine Collection Type Unknown Urine Color Yellow Urine Clarity Clear Urine pH 5.0 (<5.0-8.0) Urine Specific [place] 1.025 (1.000-1.030) Urine Protein Negative mg/dL (NEG-TRACE) Urine Glucose (UA) >=1000 mg/dL (NEG) Urine Ketones (Stick) 15 mg/dL (NEG) Urine Blood Negative (NEG) Urine Nitrite Negative (NEG) Urine Bilirubin Moderate (NEG) Urine Urobilinogen Dipstick 1.0 mg/dL (0.2 mg/dL) Urine Leukocyte Esterase Negative (NEG) Urine RBC Rare /HPF (0-2) Urine WBC 1-4 /HPF (0-4) Urine Squamous Epithelial Cells Few /LPF Urine Bacteria 0 /HPF (0-FEW) Urine Hyaline Casts Many /HPF Urine Mucus Mod /LPF Test 10/23/19 11:56 10/23/19 12:05 10/23/19 15:06 10/23/19 16:37 Sodium Level 131 mmol/L (136-145) Potassium Level 3.2 mmol/L (3.5-5.1) Chloride Level 79 mmol/L (98-107) Carbon Dioxide Level 30 mmol/L (21-32) Anion Gap 22 (6-14) Blood Urea Nitrogen 51 mg/dL (8-26) Creatinine 2.6 mg/dL (0.7-1.3) Estimated GFR (Cockcroft-Gault) 36.9 BUN/Creatinine Ratio 20 (6-20) Glucose Level 529 mg/dL (70-99) Calcium Level 8.8 mg/dL (8.5-10.1) Magnesium Level 2.1 mg/dL (1.8-2.4) Total Bilirubin 1.4 mg/dL (0.2-1.0) Aspartate Amino Transf (AST/SGOT) 13 U/L (15-37) Alanine Aminotransferase (ALT/SGPT) 14 U/L (16-63) Alkaline Phosphatase 87 U/L (46-116) Total Protein 7.9 g/dL (6.4-8.2) Albumin 3.8 g/dL (3.4-5.0) Albumin/Globulin Ratio 0.9 (1.0-1.7) Lipase 116 U/L (73-393) Acetone Level Sm pos (NEG) O2 Saturation 97 % (92-99) Arterial Blood pH 7.53 (7.35-7.45) Arterial Blood pCO2 at Patient Temp 31 mmHg (35-46) Arterial Blood pO2 at Patient Temp 93 mmHg (85-108) Arterial Blood HCO3 25 mmol/L (21-28) Arterial Blood Base Excess 4 mmol/L (-3-3) FiO2 21 Glucose (Fingerstick) 426 mg/dL (70-99) 401 mg/dL (70-99) Test 10/23/19 18:05 10/23/19 19:00 10/23/19 19:22 10/23/19 20:32 Glucose (Fingerstick) 336 mg/dL (70-99) 246 mg/dL (70-99) 198 mg/dL (70-99) Sodium Level 138 mmol/L (136-145) Potassium Level 2.9 mmol/L (3.5-5.1) Chloride Level 95 mmol/L (98-107) Carbon Dioxide Level 29 mmol/L (21-32) Anion Gap 14 (6-14) Blood Urea Nitrogen 42 mg/dL (8-26) Creatinine 2.2 mg/dL (0.7-1.3) Estimated GFR (Cockcroft-Gault) 44.7 Glucose Level 290 mg/dL (70-99) Calcium Level 7.8 mg/dL (8.5-10.1) Phosphorus Level 1.3 mg/dL (2.6-4.7) Magnesium Level 2.1 mg/dL (1.8-2.4) Test 10/23/19 21:35 10/23/19 22:35 10/23/19 23:35 10/24/19 00:33 Glucose (Fingerstick) 151 mg/dL (70-99) 103 mg/dL (70-99) 89 mg/dL (70-99) 98 mg/dL (70-99) Test 10/24/19 01:37 10/24/19 02:39 10/24/19 03:41 10/24/19 04:44 Glucose (Fingerstick) 121 mg/dL (70-99) 134 mg/dL (70-99) 170 mg/dL (70-99) 179 mg/dL (70-99) Test 10/24/19 05:45 10/24/19 06:02 10/24/19 07:07 10/24/19 08:12 Sodium Level 141 mmol/L (136-145) Potassium Level 3.5 mmol/L (3.5-5.1) Chloride Level 101 mmol/L (98-107) Carbon Dioxide Level 31 mmol/L (21-32) Anion Gap 9 (6-14) Blood Urea Nitrogen 38 mg/dL (8-26) Creatinine 2.1 mg/dL (0.7-1.3) Estimated GFR (Cockcroft-Gault) 47.2 Glucose Level 157 mg/dL (70-99) Calcium Level 8.3 mg/dL (8.5-10.1) Phosphorus Level 2.3 mg/dL (2.6-4.7) Glucose (Fingerstick) 123 mg/dL (70-99) 114 mg/dL (70-99) 110 mg/dL (70-99) Test 10/24/19 10:41 Glucose (Fingerstick) 159 mg/dL (70-99) Laboratory Tests Test 10/23/19 15:06 10/23/19 16:37 10/23/19 18:05 10/23/19 19:00 Glucose (Fingerstick) 426 mg/dL (70-99) 401 mg/dL (70-99) 336 mg/dL (70-99) Sodium Level 138 mmol/L (136-145) Potassium Level 2.9 mmol/L (3.5-5.1) Chloride Level 95 mmol/L (98-107) Carbon Dioxide Level 29 mmol/L (21-32) Anion Gap 14 (6-14) Blood Urea Nitrogen 42 mg/dL (8-26) Creatinine 2.2 mg/dL (0.7-1.3) Estimated GFR (Cockcroft-Gault) 44.7 Glucose Level 290 mg/dL (70-99) Calcium Level 7.8 mg/dL (8.5-10.1) Phosphorus Level 1.3 mg/dL (2.6-4.7) Magnesium Level 2.1 mg/dL (1.8-2.4) Test 10/23/19 19:22 10/23/19 20:32 10/23/19 21:35 10/23/19 22:35 Glucose (Fingerstick) 246 mg/dL (70-99) 198 mg/dL (70-99) 151 mg/dL (70-99) 103 mg/dL (70-99) Test 10/23/19 23:35 10/24/19 00:33 10/24/19 01:37 10/24/19 02:39 Glucose (Fingerstick) 89 mg/dL (70-99) 98 mg/dL (70-99) 121 mg/dL (70-99) 134 mg/dL (70-99) Test 10/24/19 03:41 10/24/19 04:44 10/24/19 05:45 10/24/19 06:02 Glucose (Fingerstick) 170 mg/dL (70-99) 179 mg/dL (70-99) 123 mg/dL (70-99) Sodium Level 141 mmol/L (136-145) Potassium Level 3.5 mmol/L (3.5-5.1) Chloride Level 101 mmol/L (98-107) Carbon Dioxide Level 31 mmol/L (21-32) Anion Gap 9 (6-14) Blood Urea Nitrogen 38 mg/dL (8-26) Creatinine 2.1 mg/dL (0.7-1.3) Estimated GFR (Cockcroft-Gault) 47.2 Glucose Level 157 mg/dL (70-99) Calcium Level 8.3 mg/dL (8.5-10.1) Phosphorus Level 2.3 mg/dL (2.6-4.7) Test 10/24/19 07:07 10/24/19 08:12 10/24/19 10:41 Glucose (Fingerstick) 114 mg/dL (70-99) 110 mg/dL (70-99) 159 mg/dL (70-99) Medications Current Medications Sodium Chloride 1,000 ml @ 1,000 mls/hr 1X ONCE IV Last administered on 10/23/19at 11:11; Start 10/23/19 at 11:00; Stop 10/23/19 at 11:59; Status DC Ondansetron HCl (Zofran) 4 mg STK-MED ONCE .ROUTE ; Start 10/23/19 at 12:24; Stop 10/23/19 at 12:24; Status DC Sodium Chloride 1,000 ml @ 1,000 mls/hr 1X ONCE IV Last administered on 10/23/19at 12:27; Start 10/23/19 at 12:30; Stop 10/23/19 at 13:29; Status DC Ondansetron HCl (Zofran) 4 mg 1X ONCE IVP Last administered on 10/23/19at 12:27; Start 10/23/19 at 12:30; Stop 10/23/19 at 12:31; Status DC Potassium Chloride/Sodium Chloride 1,000 ml @ 100 mls/hr Q10H ONCE IV Last administered on 10/23/19at 13:00; Start 10/23/19 at 13:00; Stop 10/23/19 at 22:59; Status DC Ondansetron HCl (Zofran) 4 mg PRN Q8HRS PRN IV NAUSEA/VOMITING; Start 10/23/19 at 13:30; Stop 10/23/19 at 15:29; Status DC Sodium Chloride 1,000 ml @ 100 mls/hr Q10H IV Last administered on 10/23/19at 13:27; Start 10/23/19 at 13:27; Stop 10/23/19 at 19:58; Status DC Insulin Human Regular (HumuLIN R VIAL) 10 unit 1X ONCE IV Last administered on 10/23/19at 14:16; Start 10/23/19 at 13:45; Stop 10/23/19 at 13:46; Status DC Sodium Chloride 1,000 ml @ 1,000 mls/hr 1X ONCE IV Last administered on 10/23/19at 14:16; Start 10/23/19 at 13:45; Stop 10/23/19 at 14:44; Status DC Ondansetron HCl (Zofran) 4 mg PRN Q4HRS PRN IV NAUSEA/VOMITING Last administered on 10/24/19at 00:29; Start 10/23/19 at 15:30; Stop 10/24/19 at 08:57; Status DC Insulin Human Regular 100 unit/ Sodium Chloride 101 ml @ 0 mls/hr CONT PRN PRN IV PER PROTOCOL Last administered on 10/23/19at 16:43; Start 10/23/19 at 15:30 Potassium Chloride/Water 100 ml @ 100 mls/hr PRN Q1HR PRN IV PER PROTOCOL; S tart 10/23/19 at 15:30 Potassium Chloride/Water 100 ml @ 100 mls/hr PRN Q1HR PRN IV per protocol; Start 10/23/19 at 15:30 Potassium Chloride/Water 100 ml @ 100 mls/hr PRN Q1HR PRN IV per protocol; Start 10/23/19 at 15:30 Magnesium Sulfate 100 ml @ 25 mls/hr PRN DAILY PRN IV GIVE IF MG++ LEVEL < 1.9; Start 10/24/19 at 09:00 Potassium Phosphate 10 mmol/ Sodium Chloride 103.3333 ml @ 51.667 m... Q2H IV Last administered on 10/24/19at 00:03; Start 10/23/19 at 20:00; Stop 10/24/19 at 01:59; Status DC Potassium Chloride/Water 100 ml @ 100 mls/hr Q1H IV Last administered on 10/24/19at 03:02; Start 10/24/19 at 02:00; Stop 10/24/19 at 03:59; Status DC Potassium Chloride/Sodium Chloride 1,000 ml @ 100 mls/hr Q10H IV Last administered on 10/24/19at 09:40; Start 10/23/19 at 21:00 Ondansetron HCl (Zofran) 8 mg PRN Q8HRS PRN IV NAUSEA/VOMITING Last administered on 10/24/19at 09:40; Start 10/24/19 at 09:00 Acetaminophen (Tylenol) 650 mg PRN Q6HRS PRN PO pain or fever; Start 10/24/19 at 09:00 Haloperidol (Haldol) 5 mg QHS PO ; Start 10/24/19 at 21:00 Metoclopramide HCl (Reglan Oral Solution) 5 mg TIDACHC PO Last administered on 10/24/19at 09:41; Start 10/24/19 at 11:30 Trazodone HCl (Desyrel) 50 mg QHS PO ; Start 10/24/19 at 21:00 Fluoxetine HCl (PROzac) 40 mg DAILYWBKFT PO Last administered on 10/24/19at 09:40; Start 10/24/19 at 09:00 Insulin Glargine (Lantus Syringe) 40 unit QHS SQ ; Start 10/24/19 at 21:00 Insulin Human Lispro (HumaLOG) 18 units TIDWMEALS SQ Last administered on 10/24/19at 11:07; Start 10/24/19 at 12:00 Insulin Glargine (Lantus Syringe) 15 unit 1X ONCE SQ Last administered on 10/24/19at 09:42; Start 10/24/19 at 09:00; Stop 10/24/19 at 09:14; Status DC Insulin Human Lispro (HumaLOG) 0-9 UNITS TIDWMEALS SQ ; Start 10/24/19 at 12:00 Dextrose (Dextrose 50%-Water Syringe) 12.5 gm PRN Q15MIN PRN IV SEE COMMENTS; Start 10/24/19 at 09:00 Active Scripts Active Metoclopramide Hcl 10 Mg/10 Ml Solution 5 Mg PO TIDACHC 30 Days Lantus Solostar (Insulin Glargine,Hum.rec.anlog) 100 Unit/1 Ml Insuln.pen 40 Units SQ QHS MDD 1 30 Days Humalog (Insulin Lispro) 100 Unit/1 Ml Cartridge 18 Unit SQ TIDBFRMEAL 30 Days + Sliding scale 2u for every 50mg/dL greater than 150. Reported Acetaminophen 325 Mg Tablet 2 Tab PO PRN Q6HRS PRN 24 Days Trazodone Hcl 50 Mg Tablet 1 Tab PO QHS Prozac (Fluoxetine Hcl) 40 Mg Capsule 1 Cap PO DAILYWBKFT Haloperidol 5 Mg Tablet 1 Tab PO QHS Vitals/I & O Vital Sign - Last 24 Hours 10/23/19 10/23/19 10/23/19 10/23/19 15:00 15:45 16:00 16:15 Temp 98.5 98.5 Pulse 104 106 98 92 Resp 24 20 20 20 B/P (MAP) 104/74 (84) 127/67 (87) 112/69 (83) 113/70 (84) Pulse Ox 100 98 98 98 O2 Delivery Room Air Room Air Room Air Room Air 10/23/19 10/23/19 10/23/19 10/23/19 16:30 16:45 17:00 17:30 Pulse 104 90 92 100 Resp 20 18 16 16 B/P (MAP) 140/89 (106) 127/82 (97) 124/77 (93) 119/70 (86) Pulse Ox 98 98 98 97 O2 Delivery Room Air Room Air Room Air Room Air 10/23/19 10/23/19 10/23/19 10/23/19 18:00 19:00 20:07 21:00 Temp 98.0 98.0 Pulse 94 109 93 88 Resp 16 20 18 20 B/P (MAP) 122/81 (95) 100/80 (87) 118/68 (85) 117/70 (86) Pulse Ox 99 99 99 99 O2 Delivery Room Air Room Air Room Air Room Air 10/23/19 10/23/19 10/24/19 10/24/19 22:00 23:09 00:06 00:28 Temp 97.5 97.5 Pulse 100 85 79 Resp 18 18 18 B/P (MAP) 142/89 (106) 107/69 (82) 136/93 (107) Pulse Ox 98 100 100 O2 Delivery Room Air Room Air Room Air 10/24/19 10/24/19 10/24/19 10/24/19 01:00 02:05 03:06 04:00 Pulse 80 72 92 71 Resp 20 18 20 20 B/P (MAP) 134/83 (100) 164/100 (121) 123/76 (92) 125/91 (102) Pulse Ox 99 96 100 99 O2 Delivery Room Air Room Air Room Air Room Air 10/24/19 10/24/19 10/24/19 10/24/19 04:01 04:55 06:04 07:00 Temp 98.0 98.0 98.0 98.0 Pulse 72 76 76 Resp 20 18 18 B/P (MAP) 117/91 (100) 113/77 (89) 112/83 (93) Pulse Ox 100 100 100 O2 Delivery Room Air Room Air Room Air 10/24/19 10/24/19 10/24/19 08:00 09:00 11:00 Temp 97.8 97.9 97.7 97.8 97.9 97.7 Pulse 82 80 84 Resp 17 16 18 B/P (MAP) 113/76 (88) 133/85 (101) 154/95 (114) Pulse Ox 100 100 100 O2 Delivery Room Air Room Air Room Air Intake and Output 10/23/19 10/23/19 10/24/19 14:59 22:59 06:59 Intake Total 2000 ml 325 ml 1697 ml Output Total 220 ml 100 ml Balance 2000 ml 105 ml 1597 ml Nutrition Consultation Dietary Evaluation: Recommendations by RD: Dietary education by RD, Increase Calorie Intake, Protein supplementation Comments: Continue w/ADA diet, honor food preferences, provide snacks as requested REC glucerna BID Expected Outcomes/Goals: PO intake to meet >75% est needs Glucemic control Interpretation of weight loss: >5% in 1 month Malnutrition Findings: Food and Nutrition Intake (Sev: <50% est energy req 5days Justicifation of Admission Dx: Justifications for Admission: Justification of Admission Dx: Yes DKA: JEFFREY REYES MD Oct 24, 2019 14:13
[2019-10-24] MEDS: HALOPERIDOL 5 MG TABLET. PO SCH (20:43)
[2019-10-24] MEDS: traZODone 50 MG TABLET. PO SCH (20:43)
[2019-10-24] MEDS: INSULIN GLARGINE SYRINGE. SQ SCH (20:51)
[2019-10-25 03:00] VITALS: BP 116/68
[2019-10-25] MEDS: ONDANSETRON PF 4 MG/2 ML VIAL. IV PRN ×2 (06:16→21:15)
[2019-10-25] MEDS: METOCLOPRAMIDE ORAL SOLN 10 MG/10 ML SOLUTION. PO SCH ×4 (06:17→21:14)
[2019-10-25 07:00] VITALS: BP 106/66
[2019-10-25] MEDS: INSULIN LISPRO 300 UNITS/3 ML VIAL. SQ SCH ×6 (08:00→16:36)
[2019-10-25] MEDS: FLUoxetine HCL 20 MG CAPSULE PO SCH (08:11)
--- NOTE | 2019-10-25 09:13 | PDOC ---
PROGRESS NOTES Chief Complaint Chief Complaint impression Intractable nausea and vomiting - likely gastroenteritis vs gastroparesis, States he is had nausea and vomiting since the DKA - Hyperglycemia, ACUTE Hypokalemia - Dehydrated Hyponatremia - 2/2 DKA, will hydrate Hyperbilirubinemia - constipated, will cont stool softeners Acute Renal insufficiency - vasomotor nephropathy, will hydrate NONCOMPLIANCE DUE TO LACK OF FUNDS THC ABUSE - counseled, may be contributing to vomiting Smoker - counseled on cessation Cataracts - s/p surgical correction DM1 - A1c is 8.3 08/2019 hx noncompliance with meds, poor prognosis D/C PLANNING SOON gi consult 39 min pt exam, chart review., > 50% of time spent with exam, chart review, pt care coordination History of Present Illness History of Present Illness off insulin gtt still nausea and vomiting, try out of ICU, start home meds cont current liquid diet, Delayed gastric emptying with a half-time of greater than 2 hours. There is a normal minimal amount of residual radiotracer activity within the stomach at 4 hours. 09/15/19 GI CONSULT Vitals Vitals Vital Signs Date Time Temp Pulse Resp B/P (MAP) Pulse Ox O2 Delivery O2 Flow Rate FiO2 10/25/19 08:00 Room Air 10/25/19 07:00 98.0 76 18 106/66 (79) 100 98.0 Physical Exam General: Alert, Oriented X3, Cooperative, No acute distress Heart: Regular rate Lungs: Clear Abdomen: Normal bowel sounds, No hepatosplenomegaly, No masses, Other (Epigastric tenderness) Extremities: No clubbing, No cyanosis, No edema, Normal pulses, No tenderness/swelling Skin: No rashes, No breakdown, No significant lesion Labs LABS EXAM: Nuclear gastric emptying scan. HISTORY: Nausea and vomiting. COMPARISON: None. TECHNIQUE: Serial static images were obtained over the stomach following oral administration of 2.1 mCi of 99m-Tc sulfur colloid. FINDINGS: The stomach empties into the small bowel without evidence of reflux in the area of the esophagus. The estimated time for half emptying of gastric contents, i.e. 'gastric emptying time' is 144 minutes (normal is 66 +/- 22 minutes). There is a 3 percent retained tracer activity within the stomach at one hour, 66 percent retained tracer activity within stomach at 2 hours, 13 percent retained tracer activity within stomach at 3 hours, and 2 percent retained tracer activity within stomach at 4 hours. IMPRESSION: Delayed gastric emptying with a half-time of greater than 2 hours. There is a normal minimal amount of residual radiotracer activity within the stomach at 4 hours. Electronically signed by: Lynn Bruner MD (09/15/2019 2:08 PM) [id number] DICTATED and SIGNED BY: LYNN BRUNER MD Laboratory Tests Test 10/24/19 10:41 10/24/19 15:48 10/24/19 20:41 10/25/19 04:30 Glucose (Fingerstick) 159 mg/dL (70-99) 96 mg/dL (70-99) 224 mg/dL (70-99) Phosphorus Level 2.0 mg/dL (2.6-4.7) Test 10/25/19 06:59 Glucose (Fingerstick) 71 mg/dL (70-99) Assessment and Plan Assessmemt and Plan Problems Medical Problems: (1) Acute renal failure Status: Acute (2) Dehydration Status: Acute (3) Hyperglycemia due to diabetes mellitus Status: Acute Comment Review of Relevant I have reviewed the following items grupo (where applicable) has been applied. Labs Laboratory Tests Test 10/23/19 10:53 10/23/19 11:13 10/23/19 11:20 10/23/19 11:56 Glucose (Fingerstick) 535 mg/dL (70-99) White Blood Count 9.2 x10^3/uL (4.0-11.0) Red Blood Count 5.84 x10^6/uL (4.30-5.70) Hemoglobin 18.0 g/dL (13.0-17.5) Hematocrit 51.4 % (39.0-53.0) Mean Corpuscular Volume 88 fL (79-100) Mean Corpuscular Hemoglobin 31 pg (25-35) Mean Corpuscular Hemoglobin Concent 35 g/dL (31-37) Red Cell Distribution Width 12.7 % (11.5-14.5) Platelet Count 404 x10^3/uL (140-400) Neutrophils (%) (Auto) 66 % (31-73) Lymphocytes (%) (Auto) 25 % (24-48) Monocytes (%) (Auto) 8 % (0-9) Eosinophils (%) (Auto) 0 % (0-3) Basophils (%) (Auto) 0 % (0-3) Neutrophils # (Auto) 6.1 x10^3/uL (1.8-7.7) Lymphocytes # (Auto) 2.3 x10^3/uL (1.0-4.8) Monocytes # (Auto) 0.8 x10^3/uL (0.0-1.1) Eosinophils # (Auto) 0.0 x10^3/uL (0.0-0.7) Basophils # (Auto) 0.0 x10^3/uL (0.0-0.2) Urine Collection Type Unknown Urine Color Yellow Urine Clarity Clear Urine pH 5.0 (<5.0-8.0) Urine Specific [place] 1.025 (1.000-1.030) Urine Protein Negative mg/dL (NEG-TRACE) Urine Glucose (UA) >=1000 mg/dL (NEG) Urine Ketones (Stick) 15 mg/dL (NEG) Urine Blood Negative (NEG) Urine Nitrite Negative (NEG) Urine Bilirubin Moderate (NEG) Urine Urobilinogen Dipstick 1.0 mg/dL (0.2 mg/dL) Urine Leukocyte Esterase Negative (NEG) Urine RBC Rare /HPF (0-2) Urine WBC 1-4 /HPF (0-4) Urine Squamous Epithelial Cells Few /LPF Urine Bacteria 0 /HPF (0-FEW) Urine Hyaline Casts Many /HPF Urine Mucus Mod /LPF Sodium Level 131 mmol/L (136-145) Potassium Level 3.2 mmol/L (3.5-5.1) Chloride Level 79 mmol/L (98-107) Carbon Dioxide Level 30 mmol/L (21-32) Anion Gap 22 (6-14) Blood Urea Nitrogen 51 mg/dL (8-26) Creatinine 2.6 mg/dL (0.7-1.3) Estimated GFR (Cockcroft-Gault) 36.9 BUN/Creatinine Ratio 20 (6-20) Glucose Level 529 mg/dL (70-99) Calcium Level 8.8 mg/dL (8.5-10.1) Magnesium Level 2.1 mg/dL (1.8-2.4) Total Bilirubin 1.4 mg/dL (0.2-1.0) Aspartate Amino Transf (AST/SGOT) 13 U/L (15-37) Alanine Aminotransferase (ALT/SGPT) 14 U/L (16-63) Alkaline Phosphatase 87 U/L (46-116) Total Protein 7.9 g/dL (6.4-8.2) Albumin 3.8 g/dL (3.4-5.0) Albumin/Globulin Ratio 0.9 (1.0-1.7) Lipase 116 U/L (73-393) Acetone Level Sm pos (NEG) Test 10/23/19 12:05 10/23/19 15:06 10/23/19 16:37 10/23/19 18:05 O2 Saturation 97 % (92-99) Arterial Blood pH 7.53 (7.35-7.45) Arterial Blood pCO2 at Patient Temp 31 mmHg (35-46) Arterial Blood pO2 at Patient Temp 93 mmHg (85-108) Arterial Blood HCO3 25 mmol/L (21-28) Arterial Blood Base Excess 4 mmol/L (-3-3) FiO2 21 Glucose (Fingerstick) 426 mg/dL (70-99) 401 mg/dL (70-99) 336 mg/dL (70-99) Test 10/23/19 19:00 10/23/19 19:22 10/23/19 20:32 10/23/19 21:35 Sodium Level 138 mmol/L (136-145) Potassium Level 2.9 mmol/L (3.5-5.1) Chloride Level 95 mmol/L (98-107) Carbon Dioxide Level 29 mmol/L (21-32) Anion Gap 14 (6-14) Blood Urea Nitrogen 42 mg/dL (8-26) Creatinine 2.2 mg/dL (0.7-1.3) Estimated GFR (Cockcroft-Gault) 44.7 Glucose Level 290 mg/dL (70-99) Calcium Level 7.8 mg/dL (8.5-10.1) Phosphorus Level 1.3 mg/dL (2.6-4.7) Magnesium Level 2.1 mg/dL (1.8-2.4) Glucose (Fingerstick) 246 mg/dL (70-99) 198 mg/dL (70-99) 151 mg/dL (70-99) Test 10/23/19 22:35 10/23/19 23:35 10/24/19 00:33 10/24/19 01:37 Glucose (Fingerstick) 103 mg/dL (70-99) 89 mg/dL (70-99) 98 mg/dL (70-99) 121 mg/dL (70-99) Test 10/24/19 02:39 10/24/19 03:41 10/24/19 04:44 10/24/19 05:45 Glucose (Fingerstick) 134 mg/dL (70-99) 170 mg/dL (70-99) 179 mg/dL (70-99) Sodium Level 141 mmol/L (136-145) Potassium Level 3.5 mmol/L (3.5-5.1) Chloride Level 101 mmol/L (98-107) Carbon Dioxide Level 31 mmol/L (21-32) Anion Gap 9 (6-14) Blood Urea Nitrogen 38 mg/dL (8-26) Creatinine 2.1 mg/dL (0.7-1.3) Estimated GFR (Cockcroft-Gault) 47.2 Glucose Level 157 mg/dL (70-99) Calcium Level 8.3 mg/dL (8.5-10.1) Phosphorus Level 2.3 mg/dL (2.6-4.7) Test 10/24/19 06:02 10/24/19 07:07 10/24/19 08:12 10/24/19 10:41 Glucose (Fingerstick) 123 mg/dL (70-99) 114 mg/dL (70-99) 110 mg/dL (70-99) 159 mg/dL (70-99) Test 10/24/19 15:48 10/24/19 20:41 10/25/19 04:30 10/25/19 06:59 Glucose (Fingerstick) 96 mg/dL (70-99) 224 mg/dL (70-99) 71 mg/dL (70-99) Phosphorus Level 2.0 mg/dL (2.6-4.7) Laboratory Tests Test 10/24/19 10:41 10/24/19 15:48 10/24/19 20:41 10/25/19 04:30 Glucose (Fingerstick) 159 mg/dL (70-99) 96 mg/dL (70-99) 224 mg/dL (70-99) Phosphorus Level 2.0 mg/dL (2.6-4.7) Test 10/25/19 06:59 Glucose (Fingerstick) 71 mg/dL (70-99) Medications Current Medications Sodium Chloride 1,000 ml @ 1,000 mls/hr 1X ONCE IV Last administered on at 11:11; Start 10/23/19 at 11:00; Stop 10/23/19 at 11:59; Status DC Ondansetron HCl (Zofran) 4 mg STK-MED ONCE .ROUTE ; Start 10/23/19 at 12:24; Stop 10/23/19 at 12:24; Status DC Sodium Chloride 1,000 ml @ 1,000 mls/hr 1X ONCE IV Last administered on at 12:27; Start 10/23/19 at 12:30; Stop 10/23/19 at 13:29; Status DC Ondansetron HCl (Zofran) 4 mg 1X ONCE IVP Last administered on 10/23/19at 12:27; Start 10/23/19 at 12:30; Stop 10/23/19 at 12:31; Status DC Potassium Chloride/Sodium Chloride 1,000 ml @ 100 mls/hr Q10H ONCE IV Last administered on 10/23/19at 13:00; Start 10/23/19 at 13:00; Stop 10/23/19 at 22:59; Status DC Ondansetron HCl (Zofran) 4 mg PRN Q8HRS PRN IV NAUSEA/VOMITING; Start 10/23/19 at 13:30; Stop 10/23/19 at 15:29; Status DC Sodium Chloride 1,000 ml @ 100 mls/hr Q10H IV Last administered on 10/23/19at 13:27; Start 10/23/19 at 13:27; Stop 10/23/19 at 19:58; Status DC Insulin Human Regular (HumuLIN R VIAL) 10 unit 1X ONCE IV Last administered on 10/23/19at 14:16; Start 10/23/19 at 13:45; Stop 10/23/19 at 13:46; Status DC Sodium Chloride 1,000 ml @ 1,000 mls/hr 1X ONCE IV Last administered on 10/23/19at 14:16; Start 10/23/19 at 13:45; Stop 10/23/19 at 14:44; Status DC Ondansetron HCl (Zofran) 4 mg PRN Q4HRS PRN IV NAUSEA/VOMITING Last admini stered on 10/24/19at 00:29; Start 10/23/19 at 15:30; Stop 10/24/19 at 08:57; Status DC Insulin Human Regular 100 unit/ Sodium Chloride 101 ml @ 0 mls/hr CONT PRN PRN IV PER PROTOCOL Last administered on 10/23/19at 16:43; Start 10/23/19 at 15:30 Potassium Chloride/Water 100 ml @ 100 mls/hr PRN Q1HR PRN IV PER PROTOCOL; Start 10/23/19 at 15:30 Potassium Chloride/Water 100 ml @ 100 mls/hr PRN Q1HR PRN IV per protocol; Start 10/23/19 at 15:30 Potassium Chloride/Water 100 ml @ 100 mls/hr PRN Q1HR PRN IV per protocol; Start 10/23/19 at 15:30 Magnesium Sulfate 100 ml @ 25 mls/hr PRN DAILY PRN IV GIVE IF MG++ LEVEL < 1.9; Start 10/24/19 at 09:00 Potassium Phosphate 10 mmol/ Sodium Chloride 103.3333 ml @ 51.667 m... Q2H IV Last administered on 10/24/19at 00:03; Start 10/23/19 at 20:00; Stop 10/24/19 at 01:59; Status DC Potassium Chloride/Water 100 ml @ 100 mls/hr Q1H IV Last administered on at 03:02; Start 10/24/19 at 02:00; Stop 10/24/19 at 03:59; Status DC Potassium Chloride/Sodium Chloride 1,000 ml @ 100 mls/hr Q10H IV Last administered on 10/24/19at 22:06; Start 10/23/19 at 21:00 Ondansetron HCl (Zofran) 8 mg PRN Q8HRS PRN IV NAUSEA/VOMITING Last administered on 10/25/19at 06:16; Start 10/24/19 at 09:00 Acetaminophen (Tylenol) 650 mg PRN Q6HRS PRN PO pain or fever; Start 10/24/19 at 09:00 Haloperidol (Haldol) 5 mg QHS PO Last administered on 10/24/19 20:43; Start 10/24/19 at 21:00 Metoclopramide HCl (Reglan Oral Solution) 5 mg TIDACHC PO Last administered on 10/25/19 06:17; Start 10/24/19 at 11:30 Trazodone HCl (Desyrel) 50 mg QHS PO Last administered on 10/24/19 20:43; Start 10/24/19 at 21:00 Fluoxetine HCl (PROzac) 40 mg DAILYWBKFT PO Last administered on 10/25/19 08:11; Start 10/24/19 at 09:00 Insulin Glargine (Lantus Syringe) 40 unit QHS SQ Last administered on 10/24/19at 20:51; Start 10/24/19 at 21:00 Insulin Human Lispro (HumaLOG) 18 units TIDWMEALS SQ Last administered on 10/24/19at 11:07; Start 10/24/19 at 12:00 Insulin Glargine (Lantus Syringe) 15 unit 1X ONCE SQ Last administered on 10/24/19at 09:42; Start 10/24/19 at 09:00; Stop 10/24/19 at 09:14; Status DC Insulin Human Lispro (HumaLOG) 0-9 UNITS TIDWMEALS SQ ; Start 10/24/19 at 12:00 Dextrose (Dextrose 50%-Water Syringe) 12.5 gm PRN Q15MIN PRN IV SEE COMMENTS; Start 10/24/19 at 09:00 Active Scripts Active Metoclopramide Hcl 10 Mg/10 Ml Solution 5 Mg PO TIDACHC 30 Days Lantus Solostar (Insulin Glargine,Hum.rec.anlog) 100 Unit/1 Ml Insuln.pen 40 Units SQ QHS MDD 1 30 Days Humalog (Insulin Lispro) 100 Unit/1 Ml Cartridge 18 Unit SQ TIDBFRMEAL 30 Days + Sliding scale 2u for every 50mg/dL greater than 150. Reported Acetaminophen 325 Mg Tablet 2 Tab PO PRN Q6HRS PRN 24 Days Trazodone Hcl 50 Mg Tablet 1 Tab PO QHS Prozac (Fluoxetine Hcl) 40 Mg Capsule 1 Cap PO DAILYWBKFT Haloperidol 5 Mg Tablet 1 Tab PO QHS Vitals/I & O Vital Sign - Last 24 Hours 10/24/19 10/24/19 10/24/19 10/24/19 11:00 14:48 19:00 23:00 Temp 97.7 97.8 98.7 98.1 97.7 97.8 98.7 98.1 Pulse 84 100 78 98 Resp 18 16 18 18 B/P (MAP) 154/95 (114) 123/78 (93) 108/57 (74) 94/65 (75) Pulse Ox 100 100 100 99 O2 Delivery Room Air Room Air Room Air Room Air 10/25/19 10/25/19 10/25/19 03:00 07:00 08:00 Temp 98.1 98.0 98.1 98.0 Pulse 81 76 Resp 18 18 B/P (MAP) 116/68 (84) 106/66 (79) Pulse Ox 98 100 O2 Delivery Room Air Room Air Room Air Intake and Output 10/24/19 10/24/19 10/25/19 15:00 23:00 07:00 Intake Total 245 ml 840 ml Output Total 425 ml 400 ml Balance -180 ml 440 ml Nutrition Consultation Dietary Evaluation: Recommendations by RD: Dietary education by RD, Increase Calorie Intake, Protein supplementation Comments: Continue w/ADA diet, honor food preferences, provide snacks as requested REC glucerna BID Expected Outcomes/Goals: PO intake to meet >75% est needs Glucemic control Interpretation of weight loss: >5% in 1 month Malnutrition Findings: Food and Nutrition Intake (Sev: <50% est energy req 5days Justicifation of Admission Dx: Justifications for Admission: Justification of Admission Dx: Yes DKA: JIE CARDONA MD Oct 25, 2019 09:13
--- NOTE | 2019-10-25 10:19 | NUR ---
SW following. Discussed with RN, pt from home, RN anticipates possible discharge home with self care today. Pt is a high risk readmission for non compliance.
[2019-10-25 11:00] VITALS: BP 111/81
[2019-10-25] MEDS ORDERED: POTASSIUM BICARB 20 MEQ EFFERVESCENT TABLET. FT ONE (11:15)
[2019-10-25] MEDS: MAGNESIUM OXIDE 400 MG TABLET PO SCH ×2 (11:39→21:15)
[2019-10-25] MEDS: POTASSIUM & SODIUM PHOSPHATES PACKET. PO SCH ×2 (11:39→21:15)
--- NOTE | 2019-10-25 11:58 | PDOC2 ---
GI CONSULT Reason For Consult: severe gastroparesis HPI: HPI: 24 y/o male with recurrent nausea and vomiting who we have seen several times. Admitted w/ DKA again two days ago as many times in the past. Recurrent n/v for a week, no precipitating events. Not forthcoming with history as in the past. Vomited eggs and toast after breakfast this morning. "Sometimes" has abdominal pain. Can't remember when last stooled. Takes Reglan at home, no other GI meds. GES 08/2019: delayed gastric emptying with a half-time of greater than 2 hours, normal minimal amount of residual radiotracer activity within the stomach at 4 hours. Suspected CVS or CHS then. Abd US 07/2019: mildly distended gallbladder without evidence for acute cholecystitis, normal liver. CT A/P 2016, 2018, 2019: no acute findings, once noted some retained stool. Denies reflux/heartburn, dysphagia, diarrhea, hematochezia, melena, hematemesis, and weight loss. No previous EGD or colonoscopy. No GB, liver, pancreas, or PUD history. No NSAIDs. Daily marijuana. PMH: PMH: DM1, cataracts/blindness, depression, hyperlipidemia ECCE FH: Family History: Cancer (pancreatic - mother), Hypertension Social History: Smoke: 1 pack per day ALCOHOL: none Drugs: Marijuana ROS: GEN: Denies fevers, chills, sweats HEENT: Denies blurred vision, sore throat CV: Denies chest pain RESP: Denies shortness of air, cough GI: Per HPI : Denies hematuria, dysuria ENDO: Denies weight changes NEURO: Denies confusion, dizziness MSK: Denies weakness, joint pain/swelling SKIN: Denies jaundice, pruritus Vitals: Vitals: Vital Signs Date Time Temp Pulse Resp B/P (MAP) Pulse Ox O2 Delivery O2 Flow Rate FiO2 10/25/19 11:00 98.2 69 18 111/81 (91) 98 Room Air 98.2 Labs: Labs: Laboratory Tests Test 10/24/19 15:48 10/24/19 20:41 10/25/19 04:30 10/25/19 06:59 Glucose (Fingerstick) 96 mg/dL (70-99) 224 mg/dL (70-99) 71 mg/dL (70-99) Phosphorus Level 2.0 mg/dL (2.6-4.7) Allergies: Coded Allergies: No Known Drug Allergies (Unverified , 10/17/19) Medications: Current Medications Medications (Trade) Dose Ordered Sig/Stephanie Route PRN Reason Start Time Stop Time Status Last Admin Dose Admin Haloperidol (Haldol) 5 mg QHS PO 10/24/19 21:00 10/24/19 20:43 Trazodone HCl (Desyrel) 50 mg QHS PO 10/24/19 21:00 10/24/19 20:43 Insulin Glargine (Lantus Syringe) 40 unit QHS SQ 10/24/19 21:00 10/24/19 20:51 Insulin Human Lispro (HumaLOG) 18 units TIDWMEALS SQ 10/24/19 12:00 10/24/19 11:07 Potassium Bicarbonate (Potassium Effervescent Tablet) 40 meq 1X ONCE FT 10/25/19 11:15 10/25/19 11:16 DC 10/25/19 11:40 Magnesium Oxide (Magnesium Oxide) 400 mg BID PO 10/25/19 11:00 10/26/19 21:01 10/25/19 11:39 Potassium Phos/ Sodium Phos (Phos-Nak) 1 pkt BID PO 10/25/19 11:00 10/25/19 21:01 10/25/19 11:39 Imaging: Imaging: - PE: GEN: NAD HEENT: Atraumatic, keeps eyes closed - h/o cataracts LUNGS: CTAB HEART: RRR ABD: BS+, soft, epigastric discomfort - exam difficult, laying on side and made no attempt to move EXTREMITY: No edema SKIN: No rashes, no jaundice NEURO/PSYCH: A & O 3, flat A/P: A/P: Recurrent n/v - not clearly gastroparesis per GES 08/2019 - ?CVS vs CHS ?constipation Uncontrolled DM Marijuana use CRC screen - average risk FH pancreatic cancer -- Chronic issues. Continue Reglan. 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 Recheck tox screen. Try Dulcolax. HAO TRAYLOR Oct 25, 2019 11:58
[2019-10-25] MEDS ORDERED: BISACODYL 5 MG TABLET.DR. PO ONE (12:00)
[2019-10-25] MEDS: PANTOPRAZOLE IV PUSH 40 MG VIAL. IVP SCH (12:08)
[2019-10-25] MEDS: POTASSIUM CL 40MEQ IN 0.9%NACL 1,000 ML IV SCH ×2 (13:00→21:46)
[2019-10-25 14:49] VITALS: BP 117/82
[2019-10-25 14:58] LABS: BARBITURATES NEG (NEG); BENZODIAZEPINES NEG (NEG); CANNABINOIDS POS (NEG); COCAINE NEG (NEG); METHADONE NEG (NEG); OPIATES NEG (NEG); PHENCYCLIDINE NEG (NEG)
[2019-10-25 15:02] LABS: AMPHETAMINE/METHAMPHETAMINE NEG (NEG)
[2019-10-25 19:00] VITALS: BP 121/82
[2019-10-25] MEDS: traZODone 50 MG TABLET. PO SCH (21:15)
[2019-10-25] MEDS: HALOPERIDOL 5 MG TABLET. PO SCH (21:16)
[2019-10-25] MEDS: INSULIN GLARGINE SYRINGE. SQ SCH (21:25)
[2019-10-25 23:00] VITALS: BP 133/88
[2019-10-26 03:00] VITALS: BP 111/86
[2019-10-26 05:02] LABS: CREATININE 1.6 mg/dL (0.7-1.3); GFR 64.6; PHOSPHORUS 1.7 mg/dL (2.6-4.7); POTASSIUM 3.7 mmol/L (3.5-5.1)
[2019-10-26] MEDS: PANTOPRAZOLE IV PUSH 40 MG VIAL. IVP SCH (05:51)
[2019-10-26] MEDS: METOCLOPRAMIDE ORAL SOLN 10 MG/10 ML SOLUTION. PO SCH ×2 (05:51→11:30)
[2019-10-26 07:00] VITALS: BP 114/80
[2019-10-26] MEDS: INSULIN LISPRO 300 UNITS/3 ML VIAL. SQ SCH ×4 (07:29→12:00)
[2019-10-26] MEDS: FLUoxetine HCL 20 MG CAPSULE PO SCH (07:52)
[2019-10-26] MEDS: MAGNESIUM OXIDE 400 MG TABLET PO SCH (07:52)
[2019-10-26] MEDS: POTASSIUM CL 40MEQ IN 0.9%NACL 1,000 ML IV SCH (07:55)
--- NOTE | 2019-10-26 10:57 | PDOC ---
PROGRESS NOTES Chief Complaint Chief Complaint discharge dx Intractable nausea and vomiting - likely gastroenteritis vs gastroparesis, States he is had nausea and vomiting since the DKA - Hyperglycemia, ACUTE Hypokalemia - Dehydrated Hyponatremia - 2/2 DKA, will hydrate Hyperbilirubinemia - constipated, will cont stool softeners Acute Renal insufficiency - vasomotor nephropathy, will hydrate NONCOMPLIANCE DUE TO LACK OF FUNDS THC ABUSE - counseled, may be contributing to vomiting Smoker - counseled on cessation Cataracts - s/p surgical correction DM1 - A1c is 8.3 08/2019 hx noncompliance with meds, poor prognosis Recurrent n/v - CHS vs hyperglycemia, past GES not typical for gastroparesis +marijuana D/C PLANNING 10/25 gi consult ok with d/c today 24 min pt exam, chart review d/c planning ., > 50% of time spent with exam, chart review, pt care coordination History of Present Illness History of Present Illness off insulin gtt resolved nausea and vomiting, start home meds cont current liquid diet, Delayed gastric emptying with a half-time of greater than 2 hours. There is a normal minimal amount of residual radiotracer activity within the stomach at 4 hours. 09/15/19 GI CONSULT reviewed Vitals Vitals Vital Signs Date Time Temp Pulse Resp B/P (MAP) Pulse Ox O2 Delivery O2 Flow Rate FiO2 10/26/19 08:00 Room Air 10/26/19 07:00 98.3 81 16 114/80 (91) 100 98.3 Physical Exam General: Alert, Oriented X3, Cooperative, No acute distress Heart: Regular rate, Normal S1, Normal S2 Lungs: Clear Abdomen: Normal bowel sounds, Soft, No hepatosplenomegaly, No masses, Other (Epigastric tenderness) Extremities: No clubbing, No cyanosis, No edema, Normal pulses, No tenderness/swelling Skin: No rashes, No breakdown, No significant lesion Labs LABS Laboratory Tests Test 10/25/19 11:45 10/25/19 14:20 10/25/19 16:31 10/25/19 20:56 Glucose (Fingerstick) 115 mg/dL (70-99) 152 mg/dL (70-99) 261 mg/dL (70-99) Urine Opiates Screen Neg (NEG) Urine Methadone Screen Neg (NEG) Urine Barbiturates Neg (NEG) Urine Phencyclidine Screen Neg (NEG) Urine Amphetamine/Methamphetamine Neg (NEG) Urine Benzodiazepines Screen Neg (NEG) Urine Cocaine Screen Neg (NEG) Urine Cannabinoids Screen Pos (NEG) Urine Ethyl Alcohol Neg (NEG) Test 10/26/19 03:40 10/26/19 07:26 Sodium Level 140 mmol/L (136-145) Potassium Level 3.7 mmol/L (3.5-5.1) Chloride Level 106 mmol/L (98-107) Carbon Dioxide Level 26 mmol/L (21-32) Anion Gap 8 (6-14) Blood Urea Nitrogen 18 mg/dL (8-26) Creatinine 1.6 mg/dL (0.7-1.3) Estimated GFR (Cockcroft-Gault) 64.6 Glucose Level 241 mg/dL (70-99) Calcium Level 8.0 mg/dL (8.5-10.1) Phosphorus Level 1.7 mg/dL (2.6-4.7) Glucose (Fingerstick) 186 mg/dL (70-99) Assessment and Plan Assessmemt and Plan Problems Medical Problems: (1) Acute renal failure Status: Acute (2) Dehydration Status: Acute (3) Hyperglycemia due to diabetes mellitus Status: Acute Comment Review of Relevant I have reviewed the following items grupo (where applicable) has been applied. Labs Laboratory Tests Test 10/24/19 15:48 10/24/19 20:41 10/25/19 04:30 10/25/19 06:59 Glucose (Fingerstick) 96 mg/dL (70-99) 224 mg/dL (70-99) 71 mg/dL (70-99) Phosphorus Level 2.0 mg/dL (2.6-4.7) Test 10/25/19 11:45 10/25/19 14:20 10/25/19 16:31 10/25/19 20:56 Glucose (Fingerstick) 115 mg/dL (70-99) 152 mg/dL (70-99) 261 mg/dL (70-99) Urine Opiates Screen Neg (NEG) Urine Methadone Screen Neg (NEG) Urine Barbiturates Neg (NEG) Urine Phencyclidine Screen Neg (NEG) Urine Amphetamine/Methamphetamine Neg (NEG) Urine Benzodiazepines Screen Neg (NEG) Urine Cocaine Screen Neg (NEG) Urine Cannabinoids Screen Pos (NEG) Urine Ethyl Alcohol Neg (NEG) Test 10/26/19 03:40 10/26/19 07:26 Sodium Level 140 mmol/L (136-145) Potassium Level 3.7 mmol/L (3.5-5.1) Chloride Level 106 mmol/L (98-107) Carbon Dioxide Level 26 mmol/L (21-32) Anion Gap 8 (6-14) Blood Urea Nitrogen 18 mg/dL (8-26) Creatinine 1.6 mg/dL (0.7-1.3) Estimated GFR (Cockcroft-Gault) 64.6 Glucose Level 241 mg/dL (70-99) Calcium Level 8.0 mg/dL (8.5-10.1) Phosphorus Level 1.7 mg/dL (2.6-4.7) Glucose (Fingerstick) 186 mg/dL (70-99) Laboratory Tests Test 10/25/19 11:45 10/25/19 14:20 10/25/19 16:31 10/25/19 20:56 Glucose (Fingerstick) 115 mg/dL (70-99) 152 mg/dL (70-99) 261 mg/dL (70-99) Urine Opiates Screen Neg (NEG) Urine Methadone Screen Neg (NEG) Urine Barbiturates Neg (NEG) Urine Phencyclidine Screen Neg (NEG) Urine Amphetamine/Methamphetamine Neg (NEG) Urine Benzodiazepines Screen Neg (NEG) Urine Cocaine Screen Neg (NEG) Urine Cannabinoids Screen Pos (NEG) Urine Ethyl Alcohol Neg (NEG) Test 10/26/19 03:40 10/26/19 07:26 Sodium Level 140 mmol/L (136-145) Potassium Level 3.7 mmol/L (3.5-5.1) Chloride Level 106 mmol/L (98-107) Carbon Dioxide Level 26 mmol/L (21-32) Anion Gap 8 (6-14) Blood Urea Nitrogen 18 mg/dL (8-26) Creatinine 1.6 mg/dL (0.7-1.3) Estimated GFR (Cockcroft-Gault) 64.6 Glucose Level 241 mg/dL (70-99) Calcium Level 8.0 mg/dL (8.5-10.1) Phosphorus Level 1.7 mg/dL (2.6-4.7) Glucose (Fingerstick) 186 mg/dL (70-99) Medications Current Medications Sodium Chloride 1,000 ml @ 1,000 mls/hr 1X ONCE IV Last administered on 10/23/19at 11:11; Start 10/23/19 at 11:00; Stop 10/23/19 at 11:59; Status DC Ondansetron HCl (Zofran) 4 mg STK-MED ONCE .ROUTE ; Start 10/23/19 at 12:24; Stop 10/23/19 at 12:24; Status DC Sodium Chloride 1,000 ml @ 1,000 mls/hr 1X ONCE IV Last administered on 10/22at 12:27; Start 10/23/19 at 12:30; Stop 10/23/19 at 13:29; Status DC Ondansetron HCl (Zofran) 4 mg 1X ONCE IVP Last administered on 10/23/19at 12:27; Start 10/23/19 at 12:30; Stop 10/23/19 at 12:31; Status DC Potassium Chloride/Sodium Chloride 1,000 ml @ 100 mls/hr Q10H ONCE IV Last administered on 10/23/19at 13:00; Start 10/23/19 at 13:00; Stop 10/23/19 at 22:59; Status DC Ondansetron HCl (Zofran) 4 mg PRN Q8HRS PRN IV NAUSEA/VOMITING; Start 10/23/19 at 13:30; Stop 10/23/19 at 15:29; Status DC Sodium Chloride 1,000 ml @ 100 mls/hr Q10H IV Last administered on 10/23/19at 13:27; Start 10/23/19 at 13:27; Stop 10/23/19 at 19:58; Status DC Insulin Human Regular (HumuLIN R VIAL) 10 unit 1X ONCE IV Last administered on 10/23/19at 14:16; Start 10/23/19 at 13:45; Stop 10/23/19 at 13:46; Status DC Sodium Chloride 1,000 ml @ 1,000 mls/hr 1X ONCE IV Last administered on 10/23/19at 14:16; Start 10/23/19 at 13:45; Stop 10/23/19 at 14:44; Status DC Ondansetron HCl (Zofran) 4 mg PRN Q4HRS PRN IV NAUSEA/VOMITING Last administ ered on 10/24/19at 00:29; Start 10/23/19 at 15:30; Stop 10/24/19 at 08:57; Status DC Insulin Human Regular 100 unit/ Sodium Chloride 101 ml @ 0 mls/hr CONT PRN PRN IV PER PROTOCOL Last administered on 10/23/19at 16:43; Start 10/23/19 at 15:30 Potassium Chloride/Water 100 ml @ 100 mls/hr PRN Q1HR PRN IV PER PROTOCOL; Start 10/23/19 at 15:30 Potassium Chloride/Water 100 ml @ 100 mls/hr PRN Q1HR PRN IV per protocol; Start 10/23/19 at 15:30 Potassium Chloride/Water 100 ml @ 100 mls/hr PRN Q1HR PRN IV per protocol; Start 10/23/19 at 15:30 Magnesium Sulfate 100 ml @ 25 mls/hr PRN DAILY PRN IV GIVE IF MG++ LEVEL < 1.9; Start 10/24/19 at 09:00 Potassium Phosphate 10 mmol/ Sodium Chloride 103.3333 ml @ 51.667 m... Q2H IV Last administered on 10/24/19at 00:03; Start 10/23/19 at 20:00; Stop 10/24/19 at 01:59; Status DC Potassium Chloride/Water 100 ml @ 100 mls/hr Q1H IV Last administered on 10/23at 03:02; Start 10/24/19 at 02:00; Stop 10/24/19 at 03:59; Status DC Potassium Chloride/Sodium Chloride 1,000 ml @ 100 mls/hr Q10H IV Last administered on 10/25/19at 21:46; Start 10/23/19 at 21:00 Ondansetron HCl (Zofran) 8 mg PRN Q8HRS PRN IV NAUSEA/VOMITING Last administered on 10/25/19at 21:15; Start 10/24/19 at 09:00 Acetaminophen (Tylenol) 650 mg PRN Q6HRS PRN PO pain or fever; Start 10/24/19 at 09:00 Haloperidol (Haldol) 5 mg QHS PO Last administered on 10/25/19at 21:16; Start 10/24/19 at 21:00 Metoclopramide HCl (Reglan Oral Solution) 5 mg TIDACHC PO Last administered on 10/26/19 05:51; Start 10/24/19 at 11:30 Trazodone HCl (Desyrel) 50 mg QHS PO Last administered on 10/25/19 21:15; Start 10/24/19 at 21:00 Fluoxetine HCl (PROzac) 40 mg DAILYWBKFT PO Last administered on 10/26/19 07:52; Start 10/24/19 at 09:00 Insulin Glargine (Lantus Syringe) 40 unit QHS SQ Last administered on 10/25/19 21:25; Start 10/24/19 at 21:00 Insulin Human Lispro (HumaLOG) 18 units TIDWMEALS SQ Last administered on 10/24/19at 11:07; Start 10/24/19 at 12:00 Insulin Glargine (Lantus Syringe) 15 unit 1X ONCE SQ Last administered on 10/24/19at 09:42; Start 10/24/19 at 09:00; Stop 10/24/19 at 09:14; Status DC Insulin Human Lispro (HumaLOG) 0-9 UNITS TIDWMEALS SQ Last administered on 10/26/19at 07:55; Start 10/24/19 at 12:00 Dextrose (Dextrose 50%-Water Syringe) 12.5 gm PRN Q15MIN PRN IV SEE COMMENTS; Start 10/24/19 at 09:00 Potassium Bicarbonate (Potassium Effervescent Tablet) 40 meq 1X ONCE FT Last administered on 10/25/19at 11:40; Start 10/25/19 at 11:15; Stop 10/25/19 at 11:16; Status DC Magnesium Oxide (Magnesium Oxide) 400 mg BID PO Last administered on 10/26/19 07:52; Start 10/25/19 at 11:00; Stop 10/26/19 at 21:01 Potassium Phos/ Sodium Phos (Phos-Nak) 1 pkt BID PO Last administered on 21:15; Start 10/25/19 at 11:00; Stop 10/25/19 at 21:01; Status DC Pantoprazole Sodium (PROTONIX VIAL for IV PUSH) 40 mg DAILYAC IVP Last administered on 10/26/19at 05:51; Start 10/25/19 at 12:00 Bisacodyl (Dulcolax Tab) 10 mg 1X ONCE PO Last administered on 10/25/19at 12:08; Start 10/25/19 at 12:00; Stop 10/25/19 at 12:01; Status DC Active Scripts Active Metoclopramide Hcl 10 Mg/10 Ml Solution 5 Mg PO TIDACHC 30 Days Lantus Solostar (Insulin Glargine,Hum.rec.anlog) 100 Unit/1 Ml Insuln.pen 40 Units SQ QHS MDD 1 30 Days Humalog (Insulin Lispro) 100 Unit/1 Ml Cartridge 18 Unit SQ TIDBFRMEAL 30 Days + Sliding scale 2u for every 50mg/dL greater than 150. Reported Acetaminophen 325 Mg Tablet 2 Tab PO PRN Q6HRS PRN 24 Days Trazodone Hcl 50 Mg Tablet 1 Tab PO QHS Prozac (Fluoxetine Hcl) 40 Mg Capsule 1 Cap PO DAILYWBKFT Haloperidol 5 Mg Tablet 1 Tab PO QHS Vitals/I & O Vital Sign - Last 24 Hours 10/25/19 10/25/19 10/25/19 10/25/19 11:00 14:49 19:00 23:00 Temp 98.2 98.0 98.7 98.3 98.2 98.0 98.7 98.3 Pulse 69 80 69 74 Resp 18 18 18 18 B/P (MAP) 111/81 (91) 117/82 (94) 121/82 (95) 133/88 (103) Pulse Ox 98 100 100 93 O2 Delivery Room Air Room Air Room Air Room Air 10/26/19 10/26/19 10/26/19 03:00 07:00 08:00 Temp 98.1 98.3 98.1 98.3 Pulse 80 81 Resp 18 16 B/P (MAP) 111/86 (94) 114/80 (91) Pulse Ox 90 100 O2 Delivery Room Air Room Air Room Air Intake and Output 10/25/19 10/25/19 10/26/19 15:00 23:00 07:00 Intake Total 800 ml 500 ml Balance 800 ml 500 ml Nutrition Consultation Dietary Evaluation: Recommendations by RD: Dietary education by RD, Increase Calorie Intake, Protein supplementation Comments: Continue w/ADA diet, honor food preferences, provide snacks as requested REC glucerna BID Expected Outcomes/Goals: PO intake to meet >75% est needs Glucemic control Interpretation of weight loss: >5% in 1 month Malnutrition Findings: Food and Nutrition Intake (Sev: <50% est energy req 5days Justicifation of Admission Dx: Justifications for Admission: Justification of Admission Dx: Yes DKA: DKA JIE SALGUERO MD Oct 26, 2019 10:57
[2019-10-26 11:00] VITALS: BP 123/70
--- NOTE | 2019-10-26 11:09 | PDOC ---
Subjective: Subjective: Feels better, tolerating diet, asks about discharge. Objective: Vital Signs: Vital Signs Date Time Temp Pulse Resp B/P (MAP) Pulse Ox O2 Delivery O2 Flow Rate FiO2 10/26/19 08:00 Room Air 10/26/19 07:00 98.3 81 16 114/80 (91) 100 98.3 Labs: Laboratory Tests Test 10/25/19 11:45 10/25/19 14:20 10/25/19 16:31 10/25/19 20:56 Glucose (Fingerstick) 115 mg/dL 152 mg/dL 261 mg/dL Urine Opiates Screen Neg Urine Methadone Screen Neg Urine Barbiturates Neg Urine Phencyclidine Screen Neg Urine Amphetamine/Methamphetamine Neg Urine Benzodiazepines Screen Neg Urine Cocaine Screen Neg Urine Cannabinoids Screen Pos Urine Ethyl Alcohol Neg Test 10/26/19 03:40 10/26/19 07:26 Sodium Level 140 mmol/L Potassium Level 3.7 mmol/L Chloride Level 106 mmol/L Carbon Dioxide Level 26 mmol/L Anion Gap 8 Blood Urea Nitrogen 18 mg/dL Creatinine 1.6 mg/dL Estimated GFR (Cockcroft-Gault) 64.6 Glucose Level 241 mg/dL Calcium Level 8.0 mg/dL Phosphorus Level 1.7 mg/dL Glucose (Fingerstick) 186 mg/dL PE: GEN: NAD - plate completely empty LUNGS: CTAB HEART: RRR ABD: S/ND/NT NEURO/PSYCH: A & O 3 - awake today and responding to questioning A/P: Recurrent n/v - CHS vs hyperglycemia, past GES not typical for gastroparesis +marijuana -- Better, DC per primary. Justicifation of Admission Dx: Justifications for Admission: Justification of Admission Dx: Yes DKA: DKA HAO TRAYLOR Oct 26, 2019 11:09
--- NOTE | 2019-10-26 13:10 | PDOC3 ---
Discharge Summary Date of Admission: Oct 23, 2019 Date of Discharge: Oct 26, 2019 Follow-Up: 3-5 days Admitting Diagnosis comment: discharge dx Intractable nausea and vomiting - likely gastroenteritis vs gastroparesis, States he is had nausea and vomiting since the DKA - Hyperglycemia, ACUTE Hypokalemia - Dehydrated Hyponatremia - 2/2 DKA, will hydrate Hyperbilirubinemia - constipated, will cont stool softeners Acute Renal insufficiency - vasomotor nephropathy, will hydrate NONCOMPLIANCE DUE TO LACK OF FUNDS THC ABUSE - counseled, may be contributing to vomiting Smoker - counseled on cessation Cataracts - s/p surgical correction DM1 - A1c is 8.3 08/2019 hx noncompliance with meds, poor prognosis Recurrent n/v - CHS vs hyperglycemia, past GES not typical for gastroparesis +marijuana D/C PLANNING 10/25 gi consult ok with d/c today 24 min pt exam, chart review d/c planning ., > 50% of time spent with exam, chart review, pt care coordination History of Present Illness History of Present Illness 10/24 emesis of 850 cc this AM 10/25 NO REPORTED EMESIS off insulin gtt resolved nausea and vomiting, start home meds cont current liquid diet, Delayed gastric emptying with a half-time of greater than 2 hours. There is a normal minimal amount of residual radiotracer activity within the stomach at 4 hours. 09/15/19 GI CONSULT reviewed Vitals Vitals Vital Signs Date Time Temp Pulse Resp B/P (MAP) Pulse Ox O2 Delivery O2 Flow Rate FiO2 10/26/19 08:00 Room Air 10/26/19 07:00 98.3 81 16 114/80 (91) 100 98.3 Physical Exam General: Alert, Oriented X3, Cooperative, No acute distress Heart: Regular rate, Normal S1, Normal S2 Lungs: Clear Abdomen: Normal bowel sounds, Soft, No hepatosplenomegaly, No masses, Other (Epigastric tenderness) Extremities: No clubbing, No cyanosis, No edema, Normal pulses, No tenderness/swelling Skin: No rashes, No breakdown, No significant lesion Labs FINAL DIAGNOSIS Problems Medical Problems: (1) Acute renal failure Status: Acute (2) Dehydration Status: Acute (3) Hyperglycemia due to diabetes mellitus Status: Acute Brief Hospital Course Mr. Molina is a 24 old [sex] who presented with [ INTRACTABLE VOMITING] CONDITION AT DISCHARGE: Improved Discharge Medications Current Medications Sodium Chloride 1,000 ml @ 1,000 mls/hr 1X ONCE IV Last administered on 10/23/19at 11:11; Start 10/23/19 at 11:00; Stop 10/23/19 at 11:59; Status DC Ondansetron HCl (Zofran) 4 mg STK-MED ONCE .ROUTE ; Start 10/23/19 at 12:24; Stop 10/23/19 at 12:24; Status DC Sodium Chloride 1,000 ml @ 1,000 mls/hr 1X ONCE IV Last administered on 10/23/19at 12:27; Start 10/23/19 at 12:30; Stop 10/23/19 at 13:29; Status DC Ondansetron HCl (Zofran) 4 mg 1X ONCE IVP Last administered on 10/23/19at 12:27; Start 10/23/19 at 12:30; Stop 10/23/19 at 12:31; Status DC Potassium Chloride/Sodium Chloride 1,000 ml @ 100 mls/hr Q10H ONCE IV Last administered on 10/23/19at 13:00; Start 10/23/19 at 13:00; Stop 10/23/19 at 22:59; Status DC Ondansetron HCl (Zofran) 4 mg PRN Q8HRS PRN IV NAUSEA/VOMITING; Start 10/23/19 at 13:30; Stop 10/23/19 at 15:29; Status DC Sodium Chloride 1,000 ml @ 100 mls/hr Q10H IV Last administered on 10/23/19at 13:27; Start 10/23/19 at 13:27; Stop 10/23/19 at 19:58; Status DC Insulin Human Regular (HumuLIN R VIAL) 10 unit 1X ONCE IV Last administered on 10/23/19at 14:16; Start 10/23/19 at 13:45; Stop 10/23/19 at 13:46; Status DC Sodium Chloride 1,000 ml @ 1,000 mls/hr 1X ONCE IV Last administered on 10/23/19at 14:16; Start 10/23/19 at 13:45; Stop 10/23/19 at 14:44; Status DC Ondansetron HCl (Zofran) 4 mg PRN Q4HRS PRN IV NAUSEA/VOMITING Last administered on 10/24/19at 00:29; Start 10/23/19 at 15:30; Stop 10/24/19 at 08:57; Status DC Insulin Human Regular 100 unit/ Sodium Chloride 101 ml @ 0 mls/hr CONT PRN PRN IV PER PROTOCOL Last administered on 10/23/19at 16:43; Start 10/23/19 at 15:30 Potassium Chloride/Water 100 ml @ 100 mls/hr PRN Q1HR PRN IV PER PROTOCOL; Start 10/23/19 at 15:30 Potassium Chloride/Water 100 ml @ 100 mls/hr PRN Q1HR PRN IV per protocol; Start 10/23/19 at 15:30 Potassium Chloride/Water 100 ml @ 100 mls/hr PRN Q1HR PRN IV per protocol; Start 10/23/19 at 15:30 Magnesium Sulfate 100 ml @ 25 mls/hr PRN DAILY PRN IV GIVE IF MG++ LEVEL < 1.9; Start 10/24/19 at 09:00 Potassium Phosphate 10 mmol/ Sodium Chloride 103.3333 ml @ 51.667 m... Q2H IV Last administered on 10/24/19at 00:03; Start 10/23/19 at 20:00; Stop 10/24/19 at 01:59; Status DC Potassium Chloride/Water 100 ml @ 100 mls/hr Q1H IV Last administered on 10/24/19at 03:02; Start 10/24/19 at 02:00; Stop 10/24/19 at 03:59; Status DC Potassium Chloride/Sodium Chloride 1,000 ml @ 100 mls/hr Q10H IV Last administered on 10/25/19at 21:46; Start 10/23/19 at 21:00 Ondansetron HCl (Zofran) 8 mg PRN Q8HRS PRN IV NAUSEA/VOMITING Last administered on 10/25/19at 21:15; Start 10/24/19 at 09:00 Acetaminophen (Tylenol) 650 mg PRN Q6HRS PRN PO pain or fever; Start 10/24/19 at 09:00 Haloperidol (Haldol) 5 mg QHS PO Last administered on 10/25/19at 21:16; Start 10/24/19 at 21:00 Metoclopramide HCl (Reglan Oral Solution) 5 mg TIDACHC PO Last administered on 10/26/19 05:51; Start 10/24/19 at 11:30 Trazodone HCl (Desyrel) 50 mg QHS PO Last administered on 10/25/19 21:15; Start 10/24/19 at 21:00 Fluoxetine HCl (PROzac) 40 mg DAILYWBKFT PO Last administered on 10/26/19at 07:52; Start 10/24/19 at 09:00 Insulin Glargine (Lantus Syringe) 40 unit QHS SQ Last administered on 10/25/19 21:25; Start 10/24/19 at 21:00 Insulin Human Lispro (HumaLOG) 18 units TIDWMEALS SQ Last administered on 10/24/19 11:07; Start 10/24/19 at 12:00 Insulin Glargine (Lantus Syringe) 15 unit 1X ONCE SQ Last administered on 10/24/19at 09:42; Start 10/24/19 at 09:00; Stop 10/24/19 at 09:14; Status DC Insulin Human Lispro (HumaLOG) 0-9 UNITS TIDWMEALS SQ Last administered on 10/26/19 07:55; Start 10/24/19 at 12:00 Dextrose (Dextrose 50%-Water Syringe) 12.5 gm PRN Q15MIN PRN IV SEE COMMENTS; Start 10/24/19 at 09:00 Potassium Bicarbonate (Potassium Effervescent Tablet) 40 meq 1X ONCE FT Last administered on 10/25/19at 11:40; Start 10/25/19 at 11:15; Stop 10/25/19 at 11:16; Status DC Magnesium Oxide (Magnesium Oxide) 400 mg BID PO Last administered on 10/26/19 07:52; Start 10/25/19 at 11:00; Stop 10/26/19 at 21:01 Potassium Phos/ Sodium Phos (Phos-Nak) 1 pkt BID PO Last administered on 10/25/19 21:15; Start 10/25/19 at 11:00; Stop 10/25/19 at 21:01; Status DC Pantoprazole Sodium (PROTONIX VIAL for IV PUSH) 40 mg DAILYAC IVP Last administered on 7/9/20at 05:51; Start 10/25/19 at 12:00; Stop 10/26/19 at 11:09; Status DC Bisacodyl (Dulcolax Tab) 10 mg 1X ONCE PO Last administered on 10/25/19at 12:08; Start 10/25/19 at 12:00; Stop 10/25/19 at 12:01; Status DC Pantoprazole Sodium (Protonix) 40 mg DAILYAC PO ; Start 10/27/19 at 07:30 Polyethylene Glycol (miraLAX PACKET) 17 gm DAILY PO ; Start 10/27/19 at 09:00 Active Scripts Active Metoclopramide Hcl 10 Mg/10 Ml Solution 5 Mg PO TIDACHC 30 Days Lantus Solostar (Insulin Glargine,Hum.rec.anlog) 100 Unit/1 Ml Insuln.pen 40 Units SQ QHS MDD 1 30 Days Humalog (Insulin Lispro) 100 Unit/1 Ml Cartridge 18 Unit SQ TIDBFRMEAL 30 Days + Sliding scale 2u for every 50mg/dL greater than 150. Reported Acetaminophen 325 Mg Tablet 2 Tab PO PRN Q6HRS PRN 24 Days Trazodone Hcl 50 Mg Tablet 1 Tab PO QHS Prozac (Fluoxetine Hcl) 40 Mg Capsule 1 Cap PO DAILYWBKFT Haloperidol 5 Mg Tablet 1 Tab PO QHS Vital Signs Vital Signs Date Time Temp Pulse Resp B/P (MAP) Pulse Ox O2 Delivery O2 Flow Rate FiO2 10/26/19 11:00 97.8 82 16 123/70 (87) 99 Room Air 97.8 Labs Laboratory Tests Test 10/24/19 15:48 10/24/19 20:41 10/25/19 04:30 10/25/19 06:59 Glucose (Fingerstick) 96 mg/dL (70-99) 224 mg/dL (70-99) 71 mg/dL (70-99) Phosphorus Level 2.0 mg/dL (2.6-4.7) Test 10/25/19 11:45 10/25/19 14:20 10/25/19 16:31 10/25/19 20:56 Glucose (Fingerstick) 115 mg/dL (70-99) 152 mg/dL (70-99) 261 mg/dL (70-99) Urine Opiates Screen Neg (NEG) Urine Methadone Screen Neg (NEG) Urine Barbiturates Neg (NEG) Urine Phencyclidine Screen Neg (NEG) Urine Amphetamine/Methamphetamine Neg (NEG) Urine Benzodiazepines Screen Neg (NEG) Urine Cocaine Screen Neg (NEG) Urine Cannabinoids Screen Pos (NEG) Urine Ethyl Alcohol Neg (NEG) Test 10/26/19 03:40 10/26/19 07:26 10/26/19 12:12 Sodium Level 140 mmol/L (136-145) Potassium Level 3.7 mmol/L (3.5-5.1) Chloride Level 106 mmol/L (98-107) Carbon Dioxide Level 26 mmol/L (21-32) Anion Gap 8 (6-14) Blood Urea Nitrogen 18 mg/dL (8-26) Creatinine 1.6 mg/dL (0.7-1.3) Estimated GFR (Cockcroft-Gault) 64.6 Glucose Level 241 mg/dL (70-99) Calcium Level 8.0 mg/dL (8.5-10.1) Phosphorus Level 1.7 mg/dL (2.6-4.7) Glucose (Fingerstick) 186 mg/dL (70-99) 137 mg/dL (70-99) Laboratory Tests Test 10/25/19 14:20 10/25/19 16:31 10/25/19 20:56 10/26/19 03:40 Urine Opiates Screen Neg (NEG) Urine Methadone Screen Neg (NEG) Urine Barbiturates Neg (NEG) Urine Phencyclidine Screen Neg (NEG) Urine Amphetamine/Methamphetamine Neg (NEG) Urine Benzodiazepines Screen Neg (NEG) Urine Cocaine Screen Neg (NEG) Urine Cannabinoids Screen Pos (NEG) Urine Ethyl Alcohol Neg (NEG) Glucose (Fingerstick) 152 mg/dL (70-99) 261 mg/dL (70-99) Sodium Level 140 mmol/L (136-145) Potassium Level 3.7 mmol/L (3.5-5.1) Chloride Level 106 mmol/L (98-107) Carbon Dioxide Level 26 mmol/L (21-32) Anion Gap 8 (6-14) Blood Urea Nitrogen 18 mg/dL (8-26) Creatinine 1.6 mg/dL (0.7-1.3) Estimated GFR (Cockcroft-Gault) 64.6 Glucose Level 241 mg/dL (70-99) Calcium Level 8.0 mg/dL (8.5-10.1) Phosphorus Level 1.7 mg/dL (2.6-4.7) Test 10/26/19 07:26 10/26/19 12:12 Glucose (Fingerstick) 186 mg/dL (70-99) 137 mg/dL (70-99) Allergies Allergies Coded Allergies Type Severity Reaction Last Updated Verified No Known Drug Allergies 10/17/19 No Disposition/Orders: D/C to Home Patient Instructions D/C PLANNING 24 MIN Justicifation of Admission Dx: Justifications for Admission: Justification of Admission Dx: Yes DKA: DKA JIE SALGUERO MD Oct 26, 2019 13:10
[2019-10-26] MEDS ORDERED: POLY17PO28 PO (13:12)
[2019-10-26] MEDS ORDERED: PANT40TA77 PO (13:12)
[2019-10-26] MEDS ORDERED: MAGN400T44 PO (13:12)
--- NOTE | 2019-10-26 13:13 | DISCH ---
DISCHARGE INSTRUCTIONS Condition on Discharge Condition on Discharge: Stable Activity After Discharge Activity Instructions for Disc: Activity as tolerated Exercise Instruction after Dis: Progress as tolerated Driving Instructions after Dis: Do not drive today Weight Bearing Status after Di: As tolerated Diet after Discharge Diet after Discharge: Diabetic No Calorie Level Diet Texture: Regular Liquid Texture: Thin Liquid Wound Incision Care Wound/Incision Care: No wound care needed Checks after Discharge Checks after discharge: Check blood press - daily, Check blood sugar, ac/hs, Check your Temp as needed Contacting the DR. after DC Call your doctor for: If your condition worsens Follow-Up Follow Up With: Your Primary Care Doctor. Treatment/Equipment after DC Adaptive Equipment Issued: None Warfarin Follow-Up Warfarin Follow UP: SEE PCP SOON NEXT WEEK JIE SALGUERO MD Oct 26, 2019 13:13
--- NOTE | 2019-10-26 13:59 | NUR ---
Discharge instructions and belongings reviewed with patient, verbalized understanding. Patients case management director Dorcas is coming in to go over follow up instructions then patient will be escorted out of the hospital.
[2019-10-27] MEDS ORDERED: PANTOPRAZOLE 40 MG TABLET.DR. PO SCH (07:30)
[2019-10-27] MEDS ORDERED: POLYETHYLENE GLYCOL 3350 17 GM PACKET. PO SCH (09:00)
== END 2019-10-26 14:40 | disposition home or self-care (01) | DRG 391 ==
LOC: ER 09:35 → 1 WEST ICU 13:17 → 4 NORTH 10-24 16:23
PROVIDERS: ADMIT Internal Medicine; ATTEND Internal Medicine
DX: K52.9 Noninfective gastroenteritis and colitis, unspecified (principal); N17.0 Acute kidney failure with tubular necrosis; E10.10 Type 1 diabetes mellitus with ketoacidosis without coma; E87.1 Hypo-osmolality and hyponatremia; E10.43 Type 1 diabetes mellitus with diabetic autonomic (poly)neuropathy; E78.5 Hyperlipidemia, unspecified; E86.0 Dehydration; E87.6 Hypokalemia; F12.10 Cannabis abuse, uncomplicated; F17.210 Nicotine dependence, cigarettes, uncomplicated; F32.9 Major depressive disorder, single episode, unspecified; I10 Essential (primary) hypertension; K59.00 Constipation, unspecified; E78.00 Pure hypercholesterolemia, unspecified; E80.6 Other disorders of bilirubin metabolism; K31.84 Gastroparesis; T38.3X6A Underdosing of insulin and oral hypoglycemic [antidiabetic] drugs, initial encounter; K30 Functional dyspepsia; K82.8 Other specified diseases of gallbladder; Z98.42 Cataract extraction status, left eye; Z98.41 Cataract extraction status, right eye; Z91.19 Patient's noncompliance with other medical treatment and regimen; Z91.14 Patient's other noncompliance with medication regimen; Z82.49 Family history of ischemic heart disease and other diseases of the circulatory system; Y92.89 Other specified places as the place of occurrence of the external cause; Z80.8 Family history of malignant neoplasm of other organs or systems
CPT/HCPCS: 36415; 36600; 80048; 80053; 80307; 80329; 81001; 82010; 82805; 82962; 83690; 83735; 84100; 85025; 96361; 96365; 96375; 99285; C9113; J1815; J2405; J3480; J3490; J7030; G0378; G0480; J8597

== ENCOUNTER 2019-11-15 16:22 | Emergency (ER) | payer OTHER ==
[~2019-11-15] VITALS: Ht 172.7 cm; Wt 70.5 kg
[~2019-11-15 16:22] MED LIST changes: +MAGN400T44 PO; +PANT40TA77 PO; +POLY17PO28 PO
[2019-11-15] MEDS ORDERED: IV NORMAL SALINE 1000ML BAG 1,000 ML IV SCH (16:35)
[2019-11-15] MEDS ORDERED: HALOPERIDOL LACTATE 5 MG/ML VIAL. IVP ONE (16:45)
[2019-11-15] MEDS ORDERED: ONDANSETRON PF 4 MG/2 ML VIAL. IVP ONE (16:45)
--- NOTE | 2019-11-15 16:55 | PHYS DOC ---
Past Medical History Past Medical History: Diabetes-Type I, High Cholesterol, Hypertension, Renal Disease Additional Past Medical Histor: cataracts, blind/visual impairment Past Surgical History: No Surgical History Smoking Status: Current Every Day Smoker Alcohol Use: Rarely Drug Use: Marijuana General Adult EDM: Chief Complaint: NAUSEA/VOMITING/DIARRHA HPI: HPI: Patient is a 24 year old male with history of cannabis hyperemesis presents with 5 days of nausea and vomiting. Patient denies any fever or diarrhea but has some epigastric nonradiating sharp stabbing abdominal pain. Patient denies any chest pain or shortness of breath. Patient's had similar symptoms in the past. Review of Systems: Review of Systems: Constitutional: Denies fever or chills. [] Eyes: Denies change in visual acuity. [] HENT: Denies nasal congestion or sore throat. [] Respiratory: Denies cough or shortness of breath. [] Cardiovascular: Denies chest pain or edema. [] GI: Complains of abdominal pain, nausea, vomiting but no diarrhea : Denies dysuria. [] Musculoskeletal: Denies back pain or joint pain. [] Integument: Denies rash. [] Neurologic: Denies headache, focal weakness or sensory changes. [] Endocrine: Denies polyuria or polydipsia. [] Lymphatic: Denies swollen glands. [] Psychiatric: Denies depression or anxiety. [] Heart Score: Risk Factors: Risk Factors: DM, Current or recent (<one month) smoker, HTN, HLP, family history of CAD, obesity. Risk Scores: Score 0 - 3: 2.5% MACE over next 6 weeks - Discharge Home Score 4 - 6: 20.3% MACE over next 6 weeks - Admit for Clinical Observation Score 7 - 10: 72.7% MACE over next 6 weeks - Early Invasive Strategies Current Medications: Current Medications Medications (Trade) Dose Ordered Sig/Stephanie Start Time Stop Time Status Last Admin Dose Admin Haloperidol Lactate (Haldol Inj) 2.5 mg 1X ONCE 11/15/19 16:45 11/15/19 16:46 DC Ondansetron HCl (Zofran) 4 mg 1X ONCE 11/15/19 16:45 11/15/19 16:46 DC Sodium Chloride 1,000 ml @ 1,000 mls/hr Q1H 11/15/19 16:35 11/15/19 17:34 Allergies: Allergies: Allergies Coded Allergies Type Severity Reaction Last Updated Verified No Known Drug Allergies 10/17/19 No Physical Exam: PE: Constitutional: Well developed, well nourished, no acute distress, non-toxic appearance. [] HENT: Normocephalic, atraumatic, bilateral external ears normal, no trismus nose normal. [] Eyes: No periorbital edema Neck: Normal range of motion, no tenderness, supple, no stridor. [] Cardiovascular:Heart rate regular rhythm, Lungs & Thorax: No respiratory distress Abdomen: Abdomen soft with epigastric tenderness no guarding or rebound Skin: Warm, dry, no erythema, no rash. [] Back: No tenderness, no CVA tenderness. [] Extremities: No tenderness, no cyanosis, no clubbing, ROM intact, no edema. [] Neurologic: Alert and oriented X 3, normal motor function, normal sensory function, no focal deficits noted. [] Psychologic: Affect normal, judgement normal, mood normal. [] Current Patient Data: Labs: Laboratory Tests Test 11/15/19 17:03 11/15/19 17:15 White Blood Count 6.3 x10^3/uL Red Blood Count 5.40 x10^6/uL Hemoglobin 16.6 g/dL Hematocrit 47.0 % Mean Corpuscular Volume 87 fL Mean Corpuscular Hemoglobin 31 pg Mean Corpuscular Hemoglobin Concent 35 g/dL Red Cell Distribution Width 13.2 % Platelet Count 449 x10^3/uL Neutrophils (%) (Auto) 45 % Lymphocytes (%) (Auto) 44 % Monocytes (%) (Auto) 10 % Eosinophils (%) (Auto) 0 % Basophils (%) (Auto) 1 % Neutrophils # (Auto) 2.8 x10^3/uL Lymphocytes # (Auto) 2.7 x10^3/uL Monocytes # (Auto) 0.6 x10^3/uL Eosinophils # (Auto) 0.0 x10^3/uL Basophils # (Auto) 0.0 x10^3/uL Sodium Level 135 mmol/L Potassium Level 3.0 mmol/L Chloride Level 93 mmol/L Carbon Dioxide Level 34 mmol/L Anion Gap 8 Blood Urea Nitrogen 28 mg/dL Creatinine 1.7 mg/dL Estimated GFR (Cockcroft-Gault) 60.2 BUN/Creatinine Ratio 16 Glucose Level 104 mg/dL Calcium Level 10.5 mg/dL Total Bilirubin 2.2 mg/dL Aspartate Amino Transf (AST/SGOT) 11 U/L Alanine Aminotransferase (ALT/SGPT) 22 U/L Alkaline Phosphatase 94 U/L Total Protein 9.2 g/dL Albumin 4.4 g/dL Albumin/Globulin Ratio 0.9 Lipase 92 U/L Glucose (Fingerstick) 95 mg/dL Current Medications Medications (Trade) Dose Ordered Sig/Stephanie Route PRN Reason Start Time Stop Time Status Last Admin Dose Admin Sodium Chloride 1,000 ml @ 1,000 mls/hr Q1H IV 11/15/19 16:35 11/15/19 17:34 DC 11/15/19 17:07 Ondansetron HCl (Zofran) 4 mg 1X ONCE IVP 11/15/19 16:45 11/15/19 16:46 DC 11/15/19 17:21 Haloperidol Lactate (Haldol Inj) 2.5 mg 1X ONCE IVP 11/15/19 16:45 11/15/19 16:46 DC 11/15/19 17:24 Vital Signs: Vital Signs Date Time Temp Pulse Resp B/P (MAP) Pulse Ox O2 Delivery O2 Flow Rate FiO2 11/15/19 16:38 98.5 124 24 140/87 (104) Room Air 98.5 EKG: EKG: [] Radiology/Procedures: Radiology/Procedures: [] Course & Med Decision Making: Course & Med Decision Making Pertinent Labs and Imaging studies reviewed. (See chart for details) [] 24-year-old male presents with nausea vomiting. Patient has had multiple episodes like this in the past. Patient will need a second liter of fluids and potassium replacement. Care will be turned over to Dr. Bishop with reassessment and urinalysis and disposition pending Florentin Disclaimer: Florentin Disclaimer: This electronic medical record was generated, in whole or in part, using a voice recognition dictation system. Departure Departure Impression: Primary Impression: Nausea & vomiting Condition: STABLE Referrals: UNKNOWN PCP NAME (PCP) Justicifation of Admission Dx: Justifications for Admission: Justification of Admission Dx: N/A DKA: CLAIRE LAYNE MD Nov 15, 2019 16:55
[2019-11-15 17:12] LABS: BASO % 1 % (0-3); EOS % 0 % (0-3); HEMOGLOBIN 16.6 g/dL (13.0-17.5); LYMPH # 2.7 x10^3/uL (1.0-4.8); LYMPH % 44 % (24-48); MEAN CORPUSCULAR HEMOGLOBIN 31 pg (25-35); MEAN CORPUSCULAR HGB CONC 35 g/dL (31-37); MEAN CORPUSCULAR VOLUME 87 fL (79-100); MONO # 0.6 x10^3/uL (0.0-1.1); MONO % 10 % (0-9); NEUT # 2.8 x10^3/uL (1.8-7.7); NEUT % 45 % (31-73); PLATELET COUNT 449 x10^3/uL (140-400); RED CELL DISTRIBUTION WIDTH 13.2 % (11.5-14.5); WHITE BLOOD COUNT 6.3 x10^3/uL (4.0-11.0)
[2019-11-15 17:30] LABS: ALBUMIN 4.4 g/dL (3.4-5.0); ALBUMIN/GLOBULIN RATIO 0.9 (1.0-1.7); CALCIUM 10.5 mg/dL (8.5-10.1); CREATININE 1.7 mg/dL (0.7-1.3); GFR 60.2; TOTAL BILIRUBIN 2.2 mg/dL (0.2-1.0); TOTAL PROTEIN 9.2 g/dL (6.4-8.2)
[2019-11-15] MEDS ORDERED: POTASSIUM CHLORIDE 20 MEQ TABLET.ER. PO ONE (18:00)
[2019-11-15] MEDS ORDERED: IV NORMAL SALINE 1000ML BAG 1,000 ML IV ONE (18:00)
[2019-11-15 18:36] LABS: BILIRUBIN,URINE NEGATIVE (NEG); CLARITY,URINE CLEAR; NITRITE,URINE NEGATIVE (NEG); PH,URINE 6.5 (<5.0-8.0); PROTEIN,URINE 100 mg/dL (NEG-TRACE)
[2019-11-15 18:45] LABS: COLOR,URINE YELLOW
[2019-11-15 18:46] LABS: HYALINE CASTS, URINE MODERATE /HPF; SQUAMOUS EPITHELIAL CELL,UR MOD /LPF
[2019-11-15 18:47] LABS: BACTERIA,URINE 0 /HPF (0-FEW); RBC,URINE 0 /HPF (0-2)
[2019-11-15] MEDS ORDERED: ONDA4TAB12 PO (20:53)
[2019-11-15 20:55] VITALS: BP 121/77
== END 2019-11-15 21:00 | disposition home or self-care (01) ==
LOC: ER 16:22
DX: R11.2 Nausea with vomiting, unspecified (principal); R10.13 Epigastric pain; E10.9 Type 1 diabetes mellitus without complications; E78.00 Pure hypercholesterolemia, unspecified; I10 Essential (primary) hypertension; F17.200 Nicotine dependence, unspecified, uncomplicated; F12.90 Cannabis use, unspecified, uncomplicated; Z98.890 Other specified postprocedural states
CPT/HCPCS: 36415; 80053; 81001; 82962; 83690; 85025; 87086; 96361; 96374; 96375; 99285; J1630; J2405; J7030

== ENCOUNTER 2020-01-22 18:54 | Inpatient (IN) | payer OTHER ==
[~2020-01-22] VITALS: Ht 172.7 cm; Wt 66.0 kg
[~2020-01-22 18:54] MED LIST changes: +ONDA4TAB12 PO
[2020-01-22 19:31] LABS: BASO % 0 % (0-3); EOS % 0 % (0-3); HEMOGLOBIN 15.5 g/dL (13.0-17.5); LYMPH # 1.5 x10^3/uL (1.0-4.8); LYMPH % 15 % (24-48); MEAN CORPUSCULAR HEMOGLOBIN 31 pg (25-35); MEAN CORPUSCULAR HGB CONC 34 g/dL (31-37); MEAN CORPUSCULAR VOLUME 89 fL (79-100); MONO # 0.6 x10^3/uL (0.0-1.1); MONO % 6 % (0-9); NEUT # 8.4 x10^3/uL (1.8-7.7); NEUT % 80 % (31-73); PLATELET COUNT 432 x10^3/uL (140-400); RED BLOOD COUNT 5.05 x10^6/uL (4.30-5.70); RED CELL DISTRIBUTION WIDTH 13.4 % (11.5-14.5); WHITE BLOOD COUNT 10.5 x10^3/uL (4.0-11.0)
[2020-01-22] MEDS ORDERED: IV NORMAL SALINE 1000ML BAG 1,000 ML IV ONE ×2 (19:45→20:00)
[2020-01-22] MEDS ORDERED: ONDANSETRON PF 4 MG/2 ML VIAL. IVP ONE (19:45)
[2020-01-22 19:51] LABS: ALBUMIN 4.9 g/dL (3.4-5.0); ALBUMIN/GLOBULIN RATIO 1.1 (1.0-1.7); CALCIUM 10.5 mg/dL (8.5-10.1); CREATININE 2.5 mg/dL (0.7-1.3); GFR 38.6; POTASSIUM 4.7 mmol/L (3.5-5.1); TOTAL BILIRUBIN 1.5 mg/dL (0.2-1.0); TOTAL PROTEIN 9.3 g/dL (6.4-8.2)
--- NOTE | 2020-01-22 21:27 | PHYS DOC ---
Past Medical History Past Medical History: Diabetes-Type I, High Cholesterol, Hypertension, Renal Disease Additional Past Medical Histor: cataracts, blind/visual impairment Past Surgical History: No Surgical History Smoking Status: Current Every Day Smoker Alcohol Use: Rarely Drug Use: Marijuana General Adult EDM: Chief Complaint: NAUSEA/VOMITING/DIARRHA HPI: HPI: Patient is a 24-year-old male who presents to the emergency room complaining of nausea and vomiting. He stated that this started 24 hours ago. He has had this multiple times in the past. He has not taken his insulin for 2 days. When asked why patient states no particular reason. He has not been checking his glucoses at home. He has a long history of noncompliance. He has been drinking grape juice and Sprite to make himself feel better. He denies any other infectious symptoms. He has not been running any fevers. Review of Systems: Review of Systems: General: Denies fever, chills, sweats, fatigue Eyes: Denies drainage, blurred vision, eye redness HENT: Denies rhinorrhea, sore throat, earache Respiratory: Denies cough, shortness of breath, wheezing Cardiac: Denies edema, palpitations, chest pain GI: Reports abdominal pain, Nausea, vomiting MSK: Denies back pain, neck pain Skin: Denies rash, jaundice Neuro: Denies headache, dizziness Psychiatric: Denies SI/HI Heart Score: Risk Factors: Risk Factors: DM, Current or recent (<one month) smoker, HTN, HLP, family history of CAD, obesity. Risk Scores: Score 0 - 3: 2.5% MACE over next 6 weeks - Discharge Home Score 4 - 6: 20.3% MACE over next 6 weeks - Admit for Clinical Observation Score 7 - 10: 72.7% MACE over next 6 weeks - Early Invasive Strategies Current Medications: Current Medications Medications (Trade) Dose Ordered Sig/Stephanie Start Time Stop Time Status Last Admin Dose Admin Ondansetron HCl (Zofran) 4 mg 1X ONCE 01/22/20 19:45 01/22/20 19:49 DC 01/22/20 19:53 4 MG Sodium Chloride 1,000 ml @ 1,000 mls/hr 1X ONCE 01/22/20 20:00 01/22/20 20:59 DC 01/22/20 19:53 1,000 MLS/HR Allergies: Allergies: Allergies Coded Allergies Type Severity Reaction Last Updated Verified No Known Drug Allergies 10/17/19 No Physical Exam: PE: General: Awake, alert, NAD. Well Nourished, well hydrated. Cooperative HEENT: Atraumatic, EOMI, PERRL, airway patent, moist oral mucosa Neck: Supple, trachea midline Respiratory: CTA bilaterally, normal effort, no wheezing/crackles CV: Tachycardic, no murmur, cap refill <2 GI: Soft, nondistended, nontender, no masses MSK: No obvious deformities Skin: Warm, dry, intact Neuro: A&O x3, speech NL, sensory and motor grossly intact, no focal deficits Psych: Normal affect, normal mood, not suicidal or homicidal Current Patient Data: Labs: Laboratory Tests Test 01/22/20 19:15 White Blood Count 10.5 x10^3/uL (4.0-11.0) Red Blood Count 5.05 x10^6/uL (4.30-5.70) Hemoglobin 15.5 g/dL (13.0-17.5) Hematocrit 45.0 % (39.0-53.0) Mean Corpuscular Volume 89 fL (79-100) Mean Corpuscular Hemoglobin 31 pg (25-35) Mean Corpuscular Hemoglobin Concent 34 g/dL (31-37) Red Cell Distribution Width 13.4 % (11.5-14.5) Platelet Count 432 x10^3/uL (140-400) H Neutrophils (%) (Auto) 80 % (31-73) H Lymphocytes (%) (Auto) 15 % (24-48) L Monocytes (%) (Auto) 6 % (0-9) Eosinophils (%) (Auto) 0 % (0-3) Basophils (%) (Auto) 0 % (0-3) Neutrophils # (Auto) 8.4 x10^3/uL (1.8-7.7) H Lymphocytes # (Auto) 1.5 x10^3/uL (1.0-4.8) Monocytes # (Auto) 0.6 x10^3/uL (0.0-1.1) Eosinophils # (Auto) 0.0 x10^3/uL (0.0-0.7) Basophils # (Auto) 0.0 x10^3/uL (0.0-0.2) Sodium Level 137 mmol/L (136-145) Potassium Level 4.7 mmol/L (3.5-5.1) Chloride Level 89 mmol/L (98-107) L Carbon Dioxide Level 24 mmol/L (21-32) Anion Gap 24 (6-14) H Blood Urea Nitrogen 38 mg/dL (8-26) H Creatinine 2.5 mg/dL (0.7-1.3) H Estimated GFR (Cockcroft-Gault) 38.6 BUN/Creatinine Ratio 15 (6-20) Glucose Level 688 mg/dL (70-99) *H Calcium Level 10.5 mg/dL (8.5-10.1) H Total Bilirubin 1.5 mg/dL (0.2-1.0) H Aspartate Amino Transferase (AST) 11 U/L (15-37) L Alanine Aminotransferase (ALT) 22 U/L (16-63) Alkaline Phosphatase 113 U/L (46-116) Total Protein 9.3 g/dL (6.4-8.2) H Albumin 4.9 g/dL (3.4-5.0) Albumin/Globulin Ratio 1.1 (1.0-1.7) Laboratory Tests 01/22/20 19:15 Laboratory Tests 01/22/20 19:15 Vital Signs: Vital Signs Date Time Temp Pulse Resp B/P (MAP) Pulse Ox O2 Delivery O2 Flow Rate FiO2 01/22/20 20:06 112 136/69 (91) 100 Room Air 01/22/20 19:30 20 01/22/20 19:15 97.8 97.8 EKG: EKG: [] Radiology/Procedures: Radiology/Procedures: [] Course & Med Decision Making: Course & Med Decision Making Pertinent Labs and Imaging studies reviewed. (See chart for details) Patient is 24-year-old male with past medical history of diabetes who presents to the emergency room with 1 day of nausea and vomiting. Patient has a long history of noncompliance. He has been drinking soda and juice and has not been checking his glucoses. This is concerning for possible DKA. DKA work-up was ordered. Patient refused to have an ABG done. He is hyperglycemic with an acute kidney injury. He is not currently in DKA. Patient will be admitted for an acute kidney injury and hyperglycemia. Florentin Disclaimer: Dragon Disclaimer: This electronic medical record was generated, in whole or in part, using a voice recognition dictation system. Departure Departure Impression: Primary Impression: Non-compliance Additional Impressions: Nausea & vomiting Acute renal failure Dehydration Disposition: ADMITTED INPATIENT Condition: STABLE Referrals: Razia FLOWER MD (PCP) JIMENEZ SAINI MD Jan 22, 2020 21:27
[2020-01-22 21:34] LABS: BILIRUBIN,URINE NEGATIVE (NEG); CLARITY,URINE CLEAR; COLOR,URINE YELLOW; NITRITE,URINE NEGATIVE (NEG); PH,URINE 5.5 (<5.0-8.0); PROTEIN,URINE NEGATIVE (NEG-TRACE); UROBILINOGEN,URINE 0.2 mg/dL (0.2 mg/dL)
[2020-01-22 21:45] LABS: BACTERIA,URINE 0 /HPF (0-FEW); RBC,URINE OCC /HPF (0-2); WBC,URINE OCC /HPF (0-4)
--- NOTE | 2020-01-22 22:59 | NUR ---
Pt. just arrived from ED via bed w/ LJ and hyperglycemia. He is A/O x4 and will make needs known
[2020-01-22] MEDS ORDERED: ACETAMINOPHEN 325 MG TABLET. PO PRN (23:15)
[2020-01-22] MEDS ORDERED: DEXTROSE 50% 25 GM / 50ML DISP.SYRIN. IV PRN (23:15)
[2020-01-22 23:30] VITALS: BP 140/83
[2020-01-22] MEDS ORDERED: INSULIN LISPRO 300 UNITS/3 ML VIAL. SQ ONE (23:30)
[2020-01-22] MEDS: IV NORMAL SALINE 1000ML BAG 1,000 ML IV SCH (23:42)
[2020-01-23] MEDS: INSULIN LISPRO 300 UNITS/3 ML VIAL. SQ SCH ×4 (02:22→18:04)
[2020-01-23 03:00] VITALS: BP 163/73
[2020-01-23] MEDS: IV NORMAL SALINE 1000ML BAG 1,000 ML IV SCH ×3 (03:57→18:00)
[2020-01-23 07:00] VITALS: BP 113/55
[2020-01-23] MEDS ORDERED: DOCUSATE SODIUM 100 MG CAPSULE. PO PRN (08:00)
[2020-01-23] MEDS ORDERED: POTASSIUM CHLORIDE 10MEQ 100 ML IV SCH (08:00)
[2020-01-23] MEDS ORDERED: DEXTROSE 50% 25 GM / 50ML DISP.SYRIN. IV PRN (08:00)
[2020-01-23] MEDS ORDERED: POTASSIUM CHLORIDE 10MEQ 100 ML IV PRN (08:00)
[2020-01-23] MEDS ORDERED: SENNOSIDES 8.6 MG TABLET PO PRN (08:00)
[2020-01-23] MEDS ORDERED: MAGNESIUM SULFATE 2GM 50 ML IV SCH (08:00)
[2020-01-23] MEDS ORDERED: POTASSIUM CHLORIDE 20 MEQ TABLET.ER. PO PRN (08:00)
--- NOTE | 2020-01-23 08:04 | PDOC1 ---
History and Physical Date of Service: DOS: DATE: 01/23/20 TIME: 07:54 Chief Complaint: Chief Complain: N/V History of Present Illness: HPI: 24-year-old male who presents to the emergency room complaining of nausea and vomiting. He stated that this started 24 hours ago. He has had this multiple times in the past. He has not taken his insulin for 2 days. When asked why patient states no particular reason. He has not been checking his glucoses at home. He has a long history of noncompliance. He has been drinking grape juice and Sprite to make himself feel better. He denies any other infectious symptoms. He has not been running any fevers. Past Medical/Surgical History: PMH/PSH: Past Medical History: Diabetes-Type I, High Cholesterol, Hypertension, Renal Disease Additional Past Medical Histor: cataracts, blind/visual impairment Past Surgical History: No Surgical History Smoking Status: Current Every Day Smoker Alcohol Use: Rarely Drug Use: Marijuana Allergies: Allergies: Coded Allergies: No Known Drug Allergies (Unverified , 10/17/19) Family History: Family History: Reviewed and none reported Social History: Social History: Smoking Status: Current Every Day Smoker Alcohol Use: Rarely Drug Use: Marijuana Current Medications: Current Medications Current Medications Ondansetron HCl (Zofran) 4 mg 1X ONCE IVP Last administered on 01/22/20at 19:53; Start 01/22/20 at 19:45; Stop 01/22/20 at 19:49; Status DC Sodium Chloride 1,000 ml @ 1,000 mls/hr 1X ONCE IV Last administered on 01/22/20at 19:53; Start 01/22/20 at 19:45; Stop 01/22/20 at 20:44; Status DC Sodium Chloride 1,000 ml @ 1,000 mls/hr 1X ONCE IV Last administered on 01/22/20at 19:53; Start 01/22/20 at 20:00; Stop 01/22/20 at 20:59; Status DC Insulin Human Lispro (HumaLOG) 0-7 UNITS TIDWMEALS SQ Last administered on 01/23/20at 02:22; Start 01/22/20 at 23:15 Dextrose (Dextrose 50%-Water Syringe) 12.5 gm PRN Q15MIN PRN IV SEE COMMENTS; Start 01/22/20 at 23:15 Acetaminophen (Tylenol) 650 mg PRN Q6HRS PRN PO MILD PAIN / TEMP > 100.3'F; Start 01/22/20 at 23:15 Insulin Human Lispro (HumaLOG) 8 units 1X ONCE SQ Last administered on 01/22/20at 23:51; Start 01/22/20 at 23:30; Stop 01/22/20 at 23:31; Status DC Sodium Chloride 1,000 ml @ 150 mls/hr Q6H40M IV Last administered on 01/23/20at 03:57; Start 01/22/20 at 23:15 Active Scripts Active Ondansetron Odt (Ondansetron) 4 Mg Tab.rapdis 1 Tab PO PRN Q6-8HRS Pantoprazole Sodium (Pantoprazole Sodium) 40 Mg Tablet.dr 40 Mg PO DAILYAC 30 Days Polyethylene Glycol 3350 17 Gm Powd.pack 17 Gm PO DAILY 14 Days Magnesium Oxide 400 Mg Tablet 400 Mg PO BID 14 Days Metoclopramide Hcl 10 Mg/10 Ml Solution 5 Mg PO TIDACHC 30 Days Lantus Solostar (Insulin Glargine,Hum.rec.anlog) 100 Unit/1 Ml Insuln.pen 40 Units SQ QHS MDD 1 30 Days Humalog (Insulin Lispro) 100 Unit/1 Ml Cartridge 18 Unit SQ TIDBFRMEAL 30 Days + Sliding scale 2u for every 50mg/dL greater than 150. Reported Acetaminophen 325 Mg Tablet 2 Tab PO PRN Q6HRS PRN 24 Days Trazodone Hcl 50 Mg Tablet 1 Tab PO QHS Prozac (Fluoxetine Hcl) 40 Mg Capsule 1 Cap PO DAILYWBKFT Haloperidol 5 Mg Tablet 1 Tab PO QHS ROS: Review of Systems Review of System REVIEW OF SYSTEMS: GENERAL: Denies weakness SKIN: No bruising, hair changes or rashes. EYES: No blurred, double or loss of vision. NOSE AND THROAT: No history of nosebleeds, hoarseness or sore throat. HEART: No history of palpitations, chest pain or shortness of breath on exertion. LUNGS: Denies cough, hemoptysis, wheezing or shortness of breath. GASTROINTESTINAL: Denies changes in appetite, nausea, vomiting, diarrhea or constipation. GENITOURINARY: No history of frequency, urgency, hesitancy or nocturia. NEUROLOGIC: Denies history of numbness, tingling, or tremor. PSYCHIATRIC: No history of panic, anxiety or depression. ENDOCRINE: No history of heat or cold intolerance, polyuria or polydipsia. EXTREMITIES: Denies joint pain, pain on walking or stiffness. Physical Exam: Vital Signs: Vital Signs Date Time Temp Pulse Resp B/P (MAP) Pulse Ox O2 Delivery O2 Flow Rate FiO2 01/23/20 07:00 97.8 94 18 113/55 (74) 98 Room Air 97.8 Physcial Exam: GEN: No apparent distress. Alert and oriented HEENT: Normal cephalic, atraumatic, external auditory canals are patent EYES: Extraocular muscles are intact, pupil are equally round and reactive to light and accommodation MUSCULOSKELETAL: Well developed , well nourished, good range of motion ENDOCRINE: No thyromegaly was palpated LYMPHATICS: No cervical chain or axillary nodes were noted HEMATOPOIETIC: No bruising NECK: Supple, no JVD, no thyromegaly was noted LUNGS: Clear to auscultation in all lung spear without rhonchi or wheezing HEART: RRR, S!, S2 present. Peripheral pulses intact, no obvious murmurs noted ABDOMEN: Soft, nontender. Positive bowel sounds, no organomegaly, normal bowel sounds EXTREMITIES: Without clubbing, cyanosis, or edema. Pedal pulses intact. Negative Homans sign NEUROLOGIC: Normal speech and tone. A&O x 3, moves all extremities, no obvious focal deficits PSYCHIATRIC: Normal affect, normal mood. Stable SKIN: No ulcerations or rashes, good skin turgor, no jaundice VASCULAR: Good capillary refill, neurovascular bundle appears to be intact Labs: Labs: Laboratory Tests Test 01/22/20 19:15 01/22/20 21:25 01/22/20 21:26 01/23/20 01:23 White Blood Count 10.5 x10^3/uL (4.0-11.0) Red Blood Count 5.05 x10^6/uL (4.30-5.70) Hemoglobin 15.5 g/dL (13.0-17.5) Hematocrit 45.0 % (39.0-53.0) Mean Corpuscular Volume 89 fL (79-100) Mean Corpuscular Hemoglobin 31 pg (25-35) Mean Corpuscular Hemoglobin Concent 34 g/dL (31-37) Red Cell Distribution Width 13.4 % (11.5-14.5) Platelet Count 432 x10^3/uL (140-400) Neutrophils (%) (Auto) 80 % (31-73) Lymphocytes (%) (Auto) 15 % (24-48) Monocytes (%) (Auto) 6 % (0-9) Eosinophils (%) (Auto) 0 % (0-3) Basophils (%) (Auto) 0 % (0-3) Neutrophils # (Auto) 8.4 x10^3/uL (1.8-7.7) Lymphocytes # (Auto) 1.5 x10^3/uL (1.0-4.8) Monocytes # (Auto) 0.6 x10^3/uL (0.0-1.1) Eosinophils # (Auto) 0.0 x10^3/uL (0.0-0.7) Basophils # (Auto) 0.0 x10^3/uL (0.0-0.2) Sodium Level 137 mmol/L (136-145) Potassium Level 4.7 mmol/L (3.5-5.1) Chloride Level 89 mmol/L (98-107) Carbon Dioxide Level 24 mmol/L (21-32) Anion Gap 24 (6-14) Blood Urea Nitrogen 38 mg/dL (8-26) Creatinine 2.5 mg/dL (0.7-1.3) Estimated GFR (Cockcroft-Gault) 38.6 BUN/Creatinine Ratio 15 (6-20) Glucose Level 688 mg/dL (70-99) Calcium Level 10.5 mg/dL (8.5-10.1) Total Bilirubin 1.5 mg/dL (0.2-1.0) Aspartate Amino Transf (AST/SGOT) 11 U/L (15-37) Alanine Aminotransferase (ALT/SGPT) 22 U/L (16-63) Alkaline Phosphatase 113 U/L (46-116) Total Protein 9.3 g/dL (6.4-8.2) Albumin 4.9 g/dL (3.4-5.0) Albumin/Globulin Ratio 1.1 (1.0-1.7) Glucose (Fingerstick) 579 mg/dL (70-99) 500 mg/dL (70-99) Urine Collection Type Unknown Urine Color Yellow Urine Clarity Clear Urine pH 5.5 (<5.0-8.0) Urine Specific [place] >=1.030 (1.000-1.030) Urine Protein Negative mg/dL (NEG-TRACE) Urine Glucose (UA) >=1000 mg/dL (NEG) Urine Ketones (Stick) >=80 mg/dL (NEG) Urine Blood Negative (NEG) Urine Nitrite Negative (NEG) Urine Bilirubin Negative (NEG) Urine Urobilinogen Dipstick 0.2 mg/dL (0.2 mg/dL) Urine Leukocyte Esterase Negative (NEG) Urine RBC Occ /HPF (0-2) Urine WBC Occ /HPF (0-4) Urine Squamous Epithelial Cells Occ /LPF Urine Bacteria 0 /HPF (0-FEW) Test 01/23/20 03:27 01/23/20 07:25 Glucose (Fingerstick) 346 mg/dL (70-99) 249 mg/dL (70-99) Laboratory Tests Test 01/22/20 19:15 01/22/20 21:25 01/22/20 21:26 01/23/20 01:23 White Blood Count 10.5 x10^3/uL (4.0-11.0) Red Blood Count 5.05 x10^6/uL (4.30-5.70) Hemoglobin 15.5 g/dL (13.0-17.5) Hematocrit 45.0 % (39.0-53.0) Mean Corpuscular Volume 89 fL (79-100) Mean Corpuscular Hemoglobin 31 pg (25-35) Mean Corpuscular Hemoglobin Concent 34 g/dL (31-37) Red Cell Distribution Width 13.4 % (11.5-14.5) Platelet Count 432 x10^3/uL (140-400) Neutrophils (%) (Auto) 80 % (31-73) Lymphocytes (%) (Auto) 15 % (24-48) Monocytes (%) (Auto) 6 % (0-9) Eosinophils (%) (Auto) 0 % (0-3) Basophils (%) (Auto) 0 % (0-3) Neutrophils # (Auto) 8.4 x10^3/uL (1.8-7.7) Lymphocytes # (Auto) 1.5 x10^3/uL (1.0-4.8) Monocytes # (Auto) 0.6 x10^3/uL (0.0-1.1) Eosinophils # (Auto) 0.0 x10^3/uL (0.0-0.7) Basophils # (Auto) 0.0 x10^3/uL (0.0-0.2) Sodium Level 137 mmol/L (136-145) Potassium Level 4.7 mmol/L (3.5-5.1) Chloride Level 89 mmol/L (98-107) Carbon Dioxide Level 24 mmol/L (21-32) Anion Gap 24 (6-14) Blood Urea Nitrogen 38 mg/dL (8-26) Creatinine 2.5 mg/dL (0.7-1.3) Estimated GFR (Cockcroft-Gault) 38.6 BUN/Creatinine Ratio 15 (6-20) Glucose Level 688 mg/dL (70-99) Calcium Level 10.5 mg/dL (8.5-10.1) Total Bilirubin 1.5 mg/dL (0.2-1.0) Aspartate Amino Transf (AST/SGOT) 11 U/L (15-37) Alanine Aminotransferase (ALT/SGPT) 22 U/L (16-63) Alkaline Phosphatase 113 U/L (46-116) Total Protein 9.3 g/dL (6.4-8.2) Albumin 4.9 g/dL (3.4-5.0) Albumin/Globulin Ratio 1.1 (1.0-1.7) Glucose (Fingerstick) 579 mg/dL (70-99) 500 mg/dL (70-99) Urine Collection Type Unknown Urine Color Yellow Urine Clarity Clear Urine pH 5.5 (<5.0-8.0) Urine Specific [place] >=1.030 (1.000-1.030) Urine Protein Negative mg/dL (NEG-TRACE) Urine Glucose (UA) >=1000 mg/dL (NEG) Urine Ketones (Stick) >=80 mg/dL (NEG) Urine Blood Negative (NEG) Urine Nitrite Negative (NEG) Urine Bilirubin Negative (NEG) Urine Urobilinogen Dipstick 0.2 mg/dL (0.2 mg/dL) Urine Leukocyte Esterase Negative (NEG) Urine RBC Occ /HPF (0-2) Urine WBC Occ /HPF (0-4) Urine Squamous Epithelial Cells Occ /LPF Urine Bacteria 0 /HPF (0-FEW) Test 01/23/20 03:27 01/23/20 07:25 Glucose (Fingerstick) 346 mg/dL (70-99) 249 mg/dL (70-99) Assessment/Plan Assessment/Plan DKA Anion gap metabolic acidosis Diabetes type 1 uncontrolled Medical nonadherence Acute kidney injury due to vasomotor nephropathy secondary to volume depletion vasomotor nephropathy induced by volume depletion Tobacco use disorder Cannabis use disorder ABG on admission pending urine and blood ketones Pending plasma osmolarity Continue serial inspections and examination for sources that caused ketoacidotic state Continue subcutaneous insulin coverage When glucose is less than 200, AG is closed, patient able to eat, and HCO3 greater than 15, then transition with subcu insulin 0.1 units/kg every 2 hours for at least 2 hours Continue IV fluids of 1 to 1.5 L/h until a total of 5 L is replenished Switch to one half NS at half the rate if NA is normal or elevated As needed D50 W or add D5 to IV fluids if Accu-Cheks are less than 200 Maintain potassium between 3.5-5, if potassium falls below 3.3, stop insulin and add 40 mEq/h of potassium Maintained p.o. 3 greater than 1.0 If arterial pH is below 6.9, give 100 mEq of sodium bicarb +20 mEq of potassium Every 2-4 hours BMP and a be checked until stable Every hour Accu-Cheks while on insulin Lovenox for DVT prophylaxis ADA diet Full code Discussed with RN and SW Disposition inpatient care as above Surrogate decision maker is undesignated Smoking cessation: Total time spent was > 12 minutes in face to face counseling. Patient is undecided for whether to quit or not Justifications for Admission Other Justification YANET MARTIN MD Jan 23, 2020 08:03
[2020-01-23] MEDS ORDERED: ELECTROLYTE (NON-ICU) PROTOCOL MC PRN (08:15)
[2020-01-23] MEDS: HEPARIN for SUB-Q USE 5,000 UNIT/ML VIAL. SQ SCH ×2 (08:20→20:40)
[2020-01-23] MEDS ORDERED: MAGNESIUM OXIDE 400 MG TABLET PO SCH (09:00)
--- NOTE | 2020-01-23 10:03 | NUR ---
SW following. Discussed with RN, pt from home, room air, NPO - diet being advanced today - pt wanting to eat. SW noticed pt now has a PCP listed, which was a readmission risk during past admissions. Pt has been non compliant with insulin. SW will continue to follow.
[2020-01-23 10:43] LABS: CALCIUM 9.7 mg/dL (8.5-10.1); CREATININE 1.8 mg/dL (0.7-1.3); GFR 56.4; MAGNESIUM 2.9 mg/dL (1.8-2.4); POTASSIUM 4.1 mmol/L (3.5-5.1)
[2020-01-23 10:47] VITALS: BP 107/64
[2020-01-23 13:21] LABS: BARBITURATES NEG (NEG); BENZODIAZEPINES NEG (NEG); CANNABINOIDS POS (NEG); COCAINE NEG (NEG); METHADONE NEG (NEG); OPIATES NEG (NEG); PHENCYCLIDINE NEG (NEG)
[2020-01-23 13:24] LABS: AMPHETAMINE/METHAMPHETAMINE NEG (NEG)
[2020-01-23 15:14] VITALS: BP 110/68
[2020-01-23 19:00] VITALS: BP 123/56
[2020-01-23] MEDS: ONDANSETRON PF 4 MG/2 ML VIAL. IVP PRN (20:35)
[2020-01-23 23:00] VITALS: BP 122/52
--- NOTE | 2020-01-24 01:10 | NUR ---
Pt diet advanced during the day to clears and pt has been vomiting throughout the day and has not informed staff of emesis. Pt vomiting in trash can. Pt informed to limit fluid intake and only take in ice chips at this time. Pt ambulating to allison and going into refrigerator getting drinks and attempting to fill his water pitcher. However pt vomiting in sick in hallway. Pt informed of staying in his room since he did not have mask on and he continues to vomit. Pt informed of not being able to keep anything down at this time. Pt takes reglan TID however it has not been restarted. Will continue to monitor at this time.
[2020-01-24] MEDS: IV NORMAL SALINE 1000ML BAG 1,000 ML IV SCH ×4 (01:39→16:00)
[2020-01-24 03:00] VITALS: BP 128/67
[2020-01-24] MEDS: ONDANSETRON PF 4 MG/2 ML VIAL. IVP PRN ×3 (03:19→20:14)
[2020-01-24] MEDS ORDERED: INSU100I13 SQ (03:31)
[2020-01-24] MEDS ORDERED: TRAZ-123 PO (03:31)
[2020-01-24 05:16] LABS: BASO % 0 % (0-3); EOS % 0 % (0-3); HEMATOCRIT 41.3 % (39.0-53.0); HEMOGLOBIN 14.1 g/dL (13.0-17.5); LYMPH # 2.7 x10^3/uL (1.0-4.8); LYMPH % 21 % (24-48); MEAN CORPUSCULAR HEMOGLOBIN 31 pg (25-35); MEAN CORPUSCULAR HGB CONC 34 g/dL (31-37); MEAN CORPUSCULAR VOLUME 91 fL (79-100); MONO # 0.8 x10^3/uL (0.0-1.1); MONO % 6 % (0-9); NEUT # 9.2 x10^3/uL (1.8-7.7); NEUT % 73 % (31-73); PLATELET COUNT 360 x10^3/uL (140-400); RED BLOOD COUNT 4.56 x10^6/uL (4.30-5.70); RED CELL DISTRIBUTION WIDTH 13.4 % (11.5-14.5); WHITE BLOOD COUNT 12.6 x10^3/uL (4.0-11.0)
[2020-01-24 05:52] LABS: CALCIUM 9.9 mg/dL (8.5-10.1); CREATININE 1.7 mg/dL (0.7-1.3); GFR 60.2; MAGNESIUM 2.5 mg/dL (1.8-2.4); PHOSPHORUS 3.3 mg/dL (2.6-4.7); POTASSIUM 3.9 mmol/L (3.5-5.1)
[2020-01-24 07:00] VITALS: BP 109/57
[2020-01-24] MEDS: INSULIN LISPRO 300 UNITS/3 ML VIAL. SQ SCH ×6 (08:45→17:00)
--- NOTE | 2020-01-24 09:51 | NUR ---
SW following. Discussed with RN, pt is NPO again, has been vomiting throughout the night. RN advised no SW needs at this time. SW will continue to follow.
[2020-01-24] MEDS: POTASSIUM CHLORIDE 10MEQ 100 ML IV SCH ×4 (10:35→13:15)
[2020-01-24] MEDS: INSULIN GLARGINE SYRINGE. SQ SCH ×2 (10:36→22:26)
[2020-01-24] MEDS: HEPARIN for SUB-Q USE 5,000 UNIT/ML VIAL. SQ SCH ×2 (10:36→20:20)
[2020-01-24 10:46] VITALS: BP 118/72
--- NOTE | 2020-01-24 11:26 | PDOC ---
[employer] PROGRESS NOTE Date of Service DOS: DATE: 01/24/20 TIME: 11:14 Chief Complaint Chief Complaint Concern for cyclic hyperemesis syndrome DKA Anion gap metabolic acidosis Diabetes type 1 uncontrolled Medical nonadherence Acute kidney injury due to vasomotor nephropathy secondary to volume depletion vasomotor nephropathy induced by volume depletion Tobacco use disorder Cannabis use disorder Increased anion gap Continue with IV fluids Recommend taking hot shower to reduce nausea vomiting episodes. We will keep n.p.o. for now Transition to subcu Lantus and lispro pre-meals Pending plasma osmolarity Continue serial inspections and examination for sources that caused ketoacidotic state Continue subcutaneous insulin coverage When glucose is less than 200, AG is closed, patient able to eat, and HCO3 grea ter than 15, then transition with subcu insulin 0.1 units/kg every 2 hours for at least 2 hours Switch to one half NS at half the rate if NA is normal or elevated As needed D50 W or add D5 to IV fluids if Accu-Cheks are less than 200 Maintain potassium between 3.5-5, if potassium falls below 3.3, stop insulin and add 40 mEq/h of potassium Maintained p.o. 3 greater than 1.0 If arterial pH is below 6.9, give 100 mEq of sodium bicarb +20 mEq of potassium Check BMP in the afternoon Accu-Cheks and R ISS Lovenox for DVT prophylaxis ADA diet Full code Discussed with RN and SW Disposition inpatient care as above Surrogate decision maker is undesignated History of Present Illness History of Present Illness 01/24/2020 No acute events overnight. Patient remains n.p.o. due to continued to have nausea vomiting. Patient is ambulating with IV pole. Increased anion gap due to continued nausea vomiting. Denies abdominal pain. Patient's chart, labs, images were reviewed and discussed with RN 24-year-old male who presents to the emergency room complaining of nausea and vomiting. He stated that this started 24 hours ago. He has had this multiple times in the past. He has not taken his insulin for 2 days. When asked why patient states no particular reason. He has not been checking his glucoses at home. He has a long history of noncompliance. He has been drinking grape juice and Sprite to make himself feel better. He denies any other infectious symptoms. He has not been running any fevers. Vitals/I&O Vitals/I&O: Vital Signs Date Time Temp Pulse Resp B/P (MAP) Pulse Ox O2 Delivery O2 Flow Rate FiO2 01/24/20 10:46 98.4 98 17 118/72 (87) 100 Room Air 98.4 I & O 01/23/20 01/23/20 01/24/20 15:00 23:00 07:00 Intake Total 300 ml 300 ml Output Total 300 ml 500 ml 500 ml Balance 0 ml -200 ml -500 ml Physical Exam Physical Exam: GEN: No apparent distress. Alert and oriented HEENT: Normal cephalic, atraumatic, external auditory canals are patent NECK: Supple, no JVD, no thyromegaly was noted LUNGS: Bilateral clear HEART: RRR, S1, S2 present. Peripheral pulses intact, no obvious murmurs noted ABDOMEN: Soft, nontender. Positive bowel sounds, no organomegaly, normal bowel sounds EXTREMITIES: Without clubbing, cyanosis, or edema. Pedal pulses intact. Negative Homans sign Lungs: Clear Labs Labs: Laboratory Tests Test 01/23/20 12:10 01/23/20 16:16 01/23/20 21:34 01/24/20 03:45 Urine Opiates Screen Neg (NEG) Urine Methadone Screen Neg (NEG) Urine Barbiturates Neg (NEG) Urine Phencyclidine Screen Neg (NEG) Urine Amphetamine/Methamphetamine Neg (NEG) Urine Benzodiazepines Screen Neg (NEG) Urine Cocaine Screen Neg (NEG) Urine Cannabinoids Screen Pos (NEG) Urine Ethyl Alcohol Neg (NEG) Glucose (Fingerstick) 280 mg/dL (70-99) 236 mg/dL (70-99) White Blood Count 12.6 x10^3/uL (4.0-11.0) Red Blood Count 4.56 x10^6/uL (4.30-5.70) Hemoglobin 14.1 g/dL (13.0-17.5) Hematocrit 41.3 % (39.0-53.0) Mean Corpuscular Volume 91 fL (79-100) Mean Corpuscular Hemoglobin 31 pg (25-35) Mean Corpuscular Hemoglobin Concent 34 g/dL (31-37) Red Cell Distribution Width 13.4 % (11.5-14.5) Platelet Count 360 x10^3/uL (140-400) Neutrophils (%) (Auto) 73 % (31-73) Lymphocytes (%) (Auto) 21 % (24-48) Monocytes (%) (Auto) 6 % (0-9) Eosinophils (%) (Auto) 0 % (0-3) Basophils (%) (Auto) 0 % (0-3) Neutrophils # (Auto) 9.2 x10^3/uL (1.8-7.7) Lymphocytes # (Auto) 2.7 x10^3/uL (1.0-4.8) Monocytes # (Auto) 0.8 x10^3/uL (0.0-1.1) Eosinophils # (Auto) 0.0 x10^3/uL (0.0-0.7) Basophils # (Auto) 0.0 x10^3/uL (0.0-0.2) Sodium Level 142 mmol/L (136-145) Potassium Level 3.9 mmol/L (3.5-5.1) Chloride Level 98 mmol/L (98-107) Carbon Dioxide Level 24 mmol/L (21-32) Anion Gap 20 (6-14) Blood Urea Nitrogen 26 mg/dL (8-26) Creatinine 1.7 mg/dL (0.7-1.3) Estimated GFR (Cockcroft-Gault) 60.2 Glucose Level 337 mg/dL (70-99) Calcium Level 9.9 mg/dL (8.5-10.1) Phosphorus Level 3.3 mg/dL (2.6-4.7) Magnesium Level 2.5 mg/dL (1.8-2.4) Test 01/24/20 07:02 01/24/20 11:02 Glucose (Fingerstick) 401 mg/dL (70-99) 282 mg/dL (70-99) Assessment and Plan Assessmemt and Plan Problems Medical Problems: (1) Acute renal failure Status: Acute (2) Dehydration Status: Acute (3) Nausea & vomiting Status: Acute Comment Review of Relevant I have reviewed the following items grupo (where applicable) has been applied. Medications: Current Medications Medications (Trade) Dose Ordered Sig/Stephanie Route PRN Reason Start Time Stop Time Status Last Admin Dose Admin Insulin Human Lispro (HumaLOG) 18 units TIDWMEALS SQ 01/24/20 08:00 01/24/20 08:46 Sodium Chloride 1,000 ml @ 250 mls/hr Q4H IV 01/24/20 08:00 01/24/20 10:35 Insulin Glargine (Lantus Syringe) 10 unit BID SQ 01/24/20 09:00 01/24/20 10:36 Potassium Chloride/Water 100 ml @ 100 mls/hr Q1H IV 01/24/20 09:00 01/24/20 12:59 01/24/20 10:35 Justifications for Admission Other Justification severe hyperglycemia and NPO status YANET MARTIN MD Jan 24, 2020 11:26
[2020-01-24 15:00] VITALS: BP 115/69
[2020-01-24 17:46] LABS: ALBUMIN 3.5 g/dL (3.4-5.0); ALBUMIN/GLOBULIN RATIO 1.1 (1.0-1.7); CALCIUM 9.6 mg/dL (8.5-10.1); CREATININE 1.5 mg/dL (0.7-1.3); GFR 69.6; POTASSIUM 3.8 mmol/L (3.5-5.1); TOTAL BILIRUBIN 1.8 mg/dL (0.2-1.0); TOTAL PROTEIN 6.8 g/dL (6.4-8.2)
[2020-01-24 19:00] VITALS: BP 138/87
[2020-01-24] MEDS: POTASSIUM CL 20MEQ D5-0.45NACL 1,000 ML IV SCH (20:14)
[2020-01-24] MEDS ORDERED: INSULIN GLARGINE SYRINGE. SQ SCH (21:00)
[2020-01-24 23:00] VITALS: BP 128/69
[2020-01-25 03:00] VITALS: BP 115/82
[2020-01-25] MEDS: POTASSIUM CL 20MEQ D5-0.45NACL 1,000 ML IV SCH ×3 (04:03→20:26)
[2020-01-25] MEDS: ONDANSETRON PF 4 MG/2 ML VIAL. IVP PRN ×2 (04:04→20:13)
[2020-01-25 07:00] VITALS: BP 125/85
[2020-01-25 07:08] LABS: ALBUMIN 3.3 g/dL (3.4-5.0); ALBUMIN/GLOBULIN RATIO 1.1 (1.0-1.7); CALCIUM 8.8 mg/dL (8.5-10.1); CREATININE 1.4 mg/dL (0.7-1.3); GFR 75.3; POTASSIUM 4.2 mmol/L (3.5-5.1); TOTAL BILIRUBIN 2.2 mg/dL (0.2-1.0); TOTAL PROTEIN 6.2 g/dL (6.4-8.2)
[2020-01-25] MEDS: HEPARIN for SUB-Q USE 5,000 UNIT/ML VIAL. SQ SCH ×2 (09:00→20:17)
[2020-01-25] MEDS: INSULIN GLARGINE SYRINGE. SQ SCH ×2 (09:40→20:16)
[2020-01-25] MEDS: INSULIN LISPRO 300 UNITS/3 ML VIAL. SQ SCH ×6 (09:42→17:00)
[2020-01-25 11:00] VITALS: BP 139/79
--- NOTE | 2020-01-25 11:05 | NUR ---
SW following. Discussed with RN, pt now on ADA diet. Plan will be home when medically stable. SW will continue to follow.
--- NOTE | 2020-01-25 11:45 | PDOC ---
PROGRESS NOTES Date of Service: DATE: 01/25/20 TIME: 11:44 Chief Complaint Chief Complaint Concern for cyclic hyperemesis syndrome DKA Anion gap metabolic acidosis Diabetes type 1 uncontrolled Medical nonadherence Acute kidney injury due to vasomotor nephropathy secondary to volume depletion vasomotor nephropathy induced by volume depletion Tobacco use disorder Cannabis use disorder Increased anion gap Continue with IV fluids Recommend taking hot shower to reduce nausea vomiting episodes. We will keep n.p.o. for now Transition to subcu Lantus and lispro pre-meals Pending plasma osmolarity Continue serial inspections and examination for sources that caused ketoacidotic state Continue subcutaneous insulin coverage When glucose is less than 200, AG is closed, patient able to eat, and HCO3 greater than 15, then transition with subcu insulin 0.1 units/kg every 2 hours for at least 2 hours Switch to one half NS at half the rate if NA is normal or elevated As needed D50 W or add D5 to IV fluids if Accu-Cheks are less than 200 Maintain potassium between 3.5-5, if potassium falls below 3.3, stop insulin and add 40 mEq/h of potassium Maintained p.o. 3 greater than 1.0 If arterial pH is below 6.9, give 100 mEq of sodium bicarb +20 mEq of potassium Check BMP in the afternoon Accu-Cheks and R ISS Lovenox for DVT prophylaxis ADA diet Full code Discussed with RN and SD Disposition inpatient care as above Surrogate decision maker is undesignated History of Present Illness History of Present Illness 01/24/2020 No acute events overnight. Patient remains n.p.o. due to continued to have nausea vomiting. Patient is ambulating with IV pole. Increased anion gap due to continued nausea vomiting. Denies abdominal pain. Patient's chart, labs, images were reviewed and discussed with RN 24-year-old male who presents to the emergency room complaining of nausea and vomiting. He stated that this started 24 hours ago. He has had this multiple times in the past. He has not taken his insulin for 2 days. When asked why patient states no particular reason. He has not been checking his glucoses at home. He has a long history of noncompliance. He has been drinking grape juice and Sprite to make himself feel better. He denies any other infectious symptoms. He has not been running any fevers. Vitals Vitals Vital Signs Date Time Temp Pulse Resp B/P (MAP) Pulse Ox O2 Delivery O2 Flow Rate FiO2 01/25/20 11:00 98.2 62 17 139/79 (99) 99 Room Air 98.2 Physical Exam Physical Exam GEN: No apparent distress. Alert and oriented HEENT: Normal cephalic, atraumatic, external auditory canals are patent NECK: Supple, no JVD, no thyromegaly was noted LUNGS: Bilateral clear HEART: RRR, S1, S2 present. Peripheral pulses intact, no obvious murmurs noted ABDOMEN: Soft, nontender. Positive bowel sounds, no organomegaly, normal bowel sounds EXTREMITIES: Without clubbing, cyanosis, or edema. Pedal pulses intact. Negative Homans sign Lungs: Clear Labs LABS Laboratory Tests Test 01/24/20 16:47 01/24/20 16:55 01/24/20 17:16 01/24/20 20:28 Sodium Level 147 mmol/L (136-145) Potassium Level 3.8 mmol/L (3.5-5.1) Chloride Level 110 mmol/L (98-107) Carbon Dioxide Level 30 mmol/L (21-32) Anion Gap 7 (6-14) Blood Urea Nitrogen 24 mg/dL (8-26) Creatinine 1.5 mg/dL (0.7-1.3) Estimated GFR (Cockcroft-Gault) 69.6 BUN/Creatinine Ratio 16 (6-20) Glucose Level 65 mg/dL (70-99) Calcium Level 9.6 mg/dL (8.5-10.1) Total Bilirubin 1.8 mg/dL (0.2-1.0) Aspartate Amino Transf (AST/SGOT) 15 U/L (15-37) Alanine Aminotransferase (ALT/SGPT) 18 U/L (16-63) Alkaline Phosphatase 76 U/L (46-116) Total Protein 6.8 g/dL (6.4-8.2) Albumin 3.5 g/dL (3.4-5.0) Albumin/Globulin Ratio 1.1 (1.0-1.7) Glucose (Fingerstick) 51 mg/dL (70-99) 112 mg/dL (70-99) 186 mg/dL (70-99) Test 01/25/20 05:15 01/25/20 07:31 01/25/20 11:14 Sodium Level 139 mmol/L (136-145) Potassium Level 4.2 mmol/L (3.5-5.1) Chloride Level 100 mmol/L (98-107) Carbon Dioxide Level 29 mmol/L (21-32) Anion Gap 10 (6-14) Blood Urea Nitrogen 21 mg/dL (8-26) Creatinine 1.4 mg/dL (0.7-1.3) Estimated GFR (Cockcroft-Gault) 75.3 BUN/Creatinine Ratio 15 (6-20) Glucose Level 322 mg/dL (70-99) Calcium Level 8.8 mg/dL (8.5-10.1) Total Bilirubin 2.2 mg/dL (0.2-1.0) Aspartate Amino Transf (AST/SGOT) 17 U/L (15-37) Alanine Aminotransferase (ALT/SGPT) 15 U/L (16-63) Alkaline Phosphatase 66 U/L (46-116) Total Protein 6.2 g/dL (6.4-8.2) Albumin 3.3 g/dL (3.4-5.0) Albumin/Globulin Ratio 1.1 (1.0-1.7) Glucose (Fingerstick) 322 mg/dL (70-99) 303 mg/dL (70-99) Assessment and Plan Assessmemt and Plan Problems Medical Problems: (1) Acute renal failure Status: Acute (2) Dehydration Status: Acute (3) Nausea & vomiting Status: Acute Comment Review of Relevant I have reviewed the following items grupo (where applicable) has been applied. Labs Laboratory Tests Test 01/23/20 12:10 01/23/20 16:16 01/23/20 21:34 01/24/20 03:45 Urine Opiates Screen Neg (NEG) Urine Methadone Screen Neg (NEG) Urine Barbiturates Neg (NEG) Urine Phencyclidine Screen Neg (NEG) Urine Amphetamine/Methamphetamine Neg (NEG) Urine Benzodiazepines Screen Neg (NEG) Urine Cocaine Screen Neg (NEG) Urine Cannabinoids Screen Pos (NEG) Urine Ethyl Alcohol Neg (NEG) Glucose (Fingerstick) 280 mg/dL (70-99) 236 mg/dL (70-99) White Blood Count 12.6 x10^3/uL (4.0-11.0) Red Blood Count 4.56 x10^6/uL (4.30-5.70) Hemoglobin 14.1 g/dL (13.0-17.5) Hematocrit 41.3 % (39.0-53.0) Mean Corpuscular Volume 91 fL (79-100) Mean Corpuscular Hemoglobin 31 pg (25-35) Mean Corpuscular Hemoglobin Concent 34 g/dL (31-37) Red Cell Distribution Width 13.4 % (11.5-14.5) Platelet Count 360 x10^3/uL (140-400) Neutrophils (%) (Auto) 73 % (31-73) Lymphocytes (%) (Auto) 21 % (24-48) Monocytes (%) (Auto) 6 % (0-9) Eosinophils (%) (Auto) 0 % (0-3) Basophils (%) (Auto) 0 % (0-3) Neutrophils # (Auto) 9.2 x10^3/uL (1.8-7.7) Lymphocytes # (Auto) 2.7 x10^3/uL (1.0-4.8) Monocytes # (Auto) 0.8 x10^3/uL (0.0-1.1) Eosinophils # (Auto) 0.0 x10^3/uL (0.0-0.7) Basophils # (Auto) 0.0 x10^3/uL (0.0-0.2) Sodium Level 142 mmol/L (136-145) Potassium Level 3.9 mmol/L (3.5-5.1) Chloride Level 98 mmol/L (98-107) Carbon Dioxide Level 24 mmol/L (21-32) Anion Gap 20 (6-14) Blood Urea Nitrogen 26 mg/dL (8-26) Creatinine 1.7 mg/dL (0.7-1.3) Estimated GFR (Cockcroft-Gault) 60.2 Glucose Level 337 mg/dL (70-99) Calcium Level 9.9 mg/dL (8.5-10.1) Phosphorus Level 3.3 mg/dL (2.6-4.7) Magnesium Level 2.5 mg/dL (1.8-2.4) Test 01/24/20 07:02 01/24/20 11:02 01/24/20 16:47 01/24/20 16:55 Glucose (Fingerstick) 401 mg/dL (70-99) 282 mg/dL (70-99) 51 mg/dL (70-99) Sodium Level 147 mmol/L (136-145) Potassium Level 3.8 mmol/L (3.5-5.1) Chloride Level 110 mmol/L (98-107) Carbon Dioxide Level 30 mmol/L (21-32) Anion Gap 7 (6-14) Blood Urea Nitrogen 24 mg/dL (8-26) Creatinine 1.5 mg/dL (0.7-1.3) Estimated GFR (Cockcroft-Gault) 69.6 BUN/Creatinine Ratio 16 (6-20) Glucose Level 65 mg/dL (70-99) Calcium Level 9.6 mg/dL (8.5-10.1) Total Bilirubin 1.8 mg/dL (0.2-1.0) Aspartate Amino Transf (AST/SGOT) 15 U/L (15-37) Alanine Aminotransferase (ALT/SGPT) 18 U/L (16-63) Alkaline Phosphatase 76 U/L (46-116) Total Protein 6.8 g/dL (6.4-8.2) Albumin 3.5 g/dL (3.4-5.0) Albumin/Globulin Ratio 1.1 (1.0-1.7) Test 01/24/20 17:16 01/24/20 20:28 01/25/20 05:15 01/25/20 07:31 Glucose (Fingerstick) 112 mg/dL (70-99) 186 mg/dL (70-99) 322 mg/dL (70-99) Sodium Level 139 mmol/L (136-145) Potassium Level 4.2 mmol/L (3.5-5.1) Chloride Level 100 mmol/L (98-107) Carbon Dioxide Level 29 mmol/L (21-32) Anion Gap 10 (6-14) Blood Urea Nitrogen 21 mg/dL (8-26) Creatinine 1.4 mg/dL (0.7-1.3) Estimated GFR (Cockcroft-Gault) 75.3 BUN/Creatinine Ratio 15 (6-20) Glucose Level 322 mg/dL (70-99) Calcium Level 8.8 mg/dL (8.5-10.1) Total Bilirubin 2.2 mg/dL (0.2-1.0) Aspartate Amino Transf (AST/SGOT) 17 U/L (15-37) Alanine Aminotransferase (ALT/SGPT) 15 U/L (16-63) Alkaline Phosphatase 66 U/L (46-116) Total Protein 6.2 g/dL (6.4-8.2) Albumin 3.3 g/dL (3.4-5.0) Albumin/Globulin Ratio 1.1 (1.0-1.7) Test 01/25/20 11:14 Glucose (Fingerstick) 303 mg/dL (70-99) Laboratory Tests Test 01/24/20 16:47 01/24/20 16:55 01/24/20 17:16 01/24/20 20:28 Sodium Level 147 mmol/L (136-145) Potassium Level 3.8 mmol/L (3.5-5.1) Chloride Level 110 mmol/L (98-107) Carbon Dioxide Level 30 mmol/L (21-32) Anion Gap 7 (6-14) Blood Urea Nitrogen 24 mg/dL (8-26) Creatinine 1.5 mg/dL (0.7-1.3) Estimated GFR (Cockcroft-Gault) 69.6 BUN/Creatinine Ratio 16 (6-20) Glucose Level 65 mg/dL (70-99) Calcium Level 9.6 mg/dL (8.5-10.1) Total Bilirubin 1.8 mg/dL (0.2-1.0) Aspartate Amino Transf (AST/SGOT) 15 U/L (15-37) Alanine Aminotransferase (ALT/SGPT) 18 U/L (16-63) Alkaline Phosphatase 76 U/L (46-116) Total Protein 6.8 g/dL (6.4-8.2) Albumin 3.5 g/dL (3.4-5.0) Albumin/Globulin Ratio 1.1 (1.0-1.7) Glucose (Fingerstick) 51 mg/dL (70-99) 112 mg/dL (70-99) 186 mg/dL (70-99) Test 01/25/20 05:15 01/25/20 07:31 01/25/20 11:14 Sodium Level 139 mmol/L (136-145) Potassium Level 4.2 mmol/L (3.5-5.1) Chloride Level 100 mmol/L (98-107) Carbon Dioxide Level 29 mmol/L (21-32) Anion Gap 10 (6-14) Blood Urea Nitrogen 21 mg/dL (8-26) Creatinine 1.4 mg/dL (0.7-1.3) Estimated GFR (Cockcroft-Gault) 75.3 BUN/Creatinine Ratio 15 (6-20) Glucose Level 322 mg/dL (70-99) Calcium Level 8.8 mg/dL (8.5-10.1) Total Bilirubin 2.2 mg/dL (0.2-1.0) Aspartate Amino Transf (AST/SGOT) 17 U/L (15-37) Alanine Aminotransferase (ALT/SGPT) 15 U/L (16-63) Alkaline Phosphatase 66 U/L (46-116) Total Protein 6.2 g/dL (6.4-8.2) Albumin 3.3 g/dL (3.4-5.0) Albumin/Globulin Ratio 1.1 (1.0-1.7) Glucose (Fingerstick) 322 mg/dL (70-99) 303 mg/dL (70-99) Medications Current Medications Ondansetron HCl (Zofran) 4 mg 1X ONCE IVP Last administered on 01/22/20at 19:53; Start 01/22/20 at 19:45; Stop 01/22/20 at 19:49; Status DC Sodium Chloride 1,000 ml @ 1,000 mls/hr 1X ONCE IV Last administered on 01/22/20at 19:53; Start 01/22/20 at 19:45; Stop 01/22/20 at 20:44; Status DC Sodium Chloride 1,000 ml @ 1,000 mls/hr 1X ONCE IV Last administered on 01/22/20at 19:53; Start 01/22/20 at 20:00; Stop 01/22/20 at 20:59; Status DC Insulin Human Lispro (HumaLOG) 0-7 UNITS TIDWMEALS SQ Last administered on 01/25/20at 09:42; Start 01/22/20 at 23:15 Dextrose (Dextrose 50%-Water Syringe) 12.5 gm PRN Q15MIN PRN IV SEE COMMENTS; Start 01/22/20 at 23:15; Status Cancel Acetaminophen (Tylenol) 650 mg PRN Q6HRS PRN PO MILD PAIN / TEMP > 100.3'F; Start 01/22/20 at 23:15 Insulin Human Lispro (HumaLOG) 8 units 1X ONCE SQ Last administered on 01/22/20at 23:51; Start 01/22/20 at 23:30; Stop 01/22/20 at 23:31; Status DC Sodium Chloride 1,000 ml @ 150 mls/hr Q6H40M IV Last administered on 01/24/20at 01:39; Start 01/22/20 at 23:15; Stop 01/24/20 at 07:52; Status DC Sennosides (Senna) 17.2 mg PRN BID PRN PO CONSTIPATION; Start 01/23/20 at 08:00 Docusate Sodium (Colace) 100 mg PRN DAILY PRN PO HARD STOOLS; Start 01/23/20 at 08:00 Ondansetron HCl (Zofran) 4 mg PRN Q6HRS PRN IVP NAUSEA/VOMITING Last administered on 01/25/20at 04:04; Start 01/23/20 at 08:00 Potassium Chloride (Klor-Con) 40 meq 1X PRN PO PER PROTOCOL; Start 01/23/20 at 08:00; Status UNV Magnesium Oxide (Magnesium Oxide) 400 mg BID PO ; Start 01/23/20 at 09:00; Stop 01/24/20 at 21:01; Status UNV Potassium Chloride/Water 100 ml @ 100 mls/hr Q1H IV ; Start 01/23/20 at 08:00; Stop 01/23/20 at 11:59; Status UNV Magnesium Sulfate 50 ml @ 25 mls/hr Q24H IV ; Start 01/23/20 at 08:00; Stop 01/25/20 at 09:59; Status UNV Potassium Chloride/Water 100 ml @ 100 mls/hr Q1H PRN IV low k; Start 01/23/20 at 08:00; Status UNV Dextrose (Dextrose 50%-Water Syringe) 12.5 gm PRN Q15MIN PRN IV SEE COMMENTS Last administered on 01/24/20at 17:03; Start 01/23/20 at 08:00 Heparin Sodium (Porcine) (Heparin Sodium) 5,000 unit Q12HR SQ ; Start 01/23/20 at 09:00 Info (Non-Icu Electrolyte Protocol) 1 ea CONT PRN PRN MC SEE COMMENTS; Start 01/23/20 at 08:15 Insulin Glargine (Lantus Syringe) 20 unit QHS SQ ; Start 01/24/20 at 21:00; Stop 01/24/20 at 07:52; Status DC Insulin Human Lispro (HumaLOG) 18 units TIDWMEALS SQ Last administered on 01/25/20at 09:42; Start 01/24/20 at 08:00 Sodium Chloride 1,000 ml @ 250 mls/hr Q4H IV Last administered on 01/24/20at 14:39; Start 01/24/20 at 08:00; Stop 01/24/20 at 19:53; Status DC Insulin Glargine (Lantus Syringe) 10 unit BID SQ Last administered on 01/25/20at 09:40; Start 01/24/20 at 09:00 Potassium Chloride/Water 100 ml @ 100 mls/hr Q1H IV Last administered on 01/24/20at 13:15; Start 01/24/20 at 09:00; Stop 01/24/20 at 12:59; Status DC Potassium Chloride/Dextrose/ Sod Cl 1,000 ml @ 125 mls/hr Q8H IV Last administered on 01/25/20at 04:03; Start 01/24/20 at 21:00 Active Scripts Active Ondansetron Odt (Ondansetron) 4 Mg Tab.rapdis 1 Tab PO PRN Q6-8HRS Metoclopramide Hcl 10 Mg/10 Ml Solution 5 Mg PO TIDACHC 30 Days Humalog (Insulin Lispro) 100 Unit/1 Ml Cartridge 18 Unit SQ TIDBFRMEAL 30 Days + Sliding scale 2u for every 50mg/dL greater than 150. Reported Lantus Solostar (Insulin Glargine,Hum.rec.anlog) 100 Unit/1 Ml Insuln.pen 20 Unit SQ QHS Trazodone Hcl 100 Mg Tablet 2 Tab PO QHS Acetaminophen 325 Mg Tablet 2 Tab PO PRN Q6HRS PRN 24 Days Vitals/I & O Vital Sign - Last 24 Hours 01/24/20 01/24/20 01/24/20 01/24/20 15:00 19:00 20:00 23:00 Temp 98.2 99.1 98.2 99.1 Pulse 96 61 63 Resp 17 18 18 B/P (MAP) 115/69 (84) 138/87 (104) 128/69 (88) Pulse Ox 100 100 100 O2 Delivery Room Air Room Air Room Air Room Air 01/25/20 01/25/20 01/25/20 03:00 07:00 11:00 Temp 98.1 98.0 98.2 98.1 98.0 98.2 Pulse 64 63 62 Resp 18 16 17 B/P (MAP) 115/82 (93) 125/85 (98) 139/79 (99) Pulse Ox 97 100 99 O2 Delivery Room Air Room Air Room Air Intake and Output 01/24/20 01/24/20 01/25/20 15:00 23:00 07:00 Intake Total 0 ml 0 ml Output Total 350 ml 600 ml Balance -350 ml -600 ml 0 ml Justicifation of Admission Dx: Justifications for Admission: Justification of Admission Dx: N/A DKA: JIE CARDONA MD Jan 25, 2020 11:45
[2020-01-25 15:00] VITALS: BP 169/76
[2020-01-25 19:00] VITALS: BP 135/81
--- NOTE | 2020-01-25 19:17 | NUR ---
The patient started to have PO intake today, vomited 1x this morning. This nurse noted that he sticks his finger in his throat to induce vomiting. SSI insulin given per order. Predinner BS was 62, gave orange juice and have patient eat dinner. He's AOx4, no complaints of weakness, lightheadedness or diaphoresis. We'll continue to monitor.
--- NOTE | 2020-01-25 19:25 | PDOC1 ---
History & Psych Evaluation Date of Service: DOS: DATE: 01/25/20 TIME: 19:14 Source: Source: Caregiver, Chart review, Patient Identification: Identification 24-year-old -[place]ic gentleman admitted with DKA. Chief Complaint: Chief Complaint Insomnia, depression, nausea and vomiting History of Present Illness: HPI: 24-year-old -[place] gentleman admitted with DKA. He was presented with nausea and vomiting. He had previous episodes of DKA. Reportedly poor compliance with medications and stopped taking insulin few days ago. Reportedly, patient is inducing vomiting by purging. Upon interview, he appears guarded and minimally interactive, and avoiding eye contact. He states, he has little bit of depression and anxiety. Major problem is nausea and vomiting. Additionally, mentions that he is tired of dealing with his diabetes and its complications particularly compliance with insulin is a huge problem for him. Struggling with insomnia and usually takes 200 mg of trazodone. States he has never been treated for depression and anxiety or hospitalized for it. Denies s uicidal or homicidal thoughts. Denies auditory or visual hallucinations. Denies previous history of psychiatric hospital admissions. Past Psychiatric History: Denies history of depression or anxiety. Reports insomnia and takes trazodone 200 mg nightly. Denies history of suicidal attempt. Denies history of psychiatric hospital admissions. Past Medical History: Hypertension Renal disease Cataract Visual impairment Family History: Psychiatric family history is not known to the patient Social History: Social History: He is on disability. He lives by himself. Denies legal issues. He is a daily smoker and uses marijuana regularly Current Medications: Current Medications Current Medications Medications (Trade) Dose Ordered Sig/[facility] Start Time Stop Time Status Last Admin Dose Admin Acetaminophen (Tylenol) 650 mg PRN Q6HRS PRN 01/22/20 23:15 Dextrose (Dextrose 50%-Water Syringe) 12.5 gm PRN Q15MIN PRN 01/23/20 08:00 01/24/20 17:03 12.5 GM Docusate Sodium (Colace) 100 mg PRN DAILY PRN 01/23/20 08:00 Heparin Sodium (Porcine) (Heparin Sodium) 5,000 unit Q12HR 01/23/20 09:00 Info (Non-Icu Electrolyte Protocol) 1 ea CONT PRN PRN 01/23/20 08:15 Insulin Glargine (Lantus Syringe) 10 unit BID 01/24/20 09:00 01/25/20 09:40 10 UNIT Insulin Human Lispro (HumaLOG) 18 units TIDWMEALS 01/24/20 08:00 01/25/20 12:04 18 UNITS Magnesium Oxide (Magnesium Oxide) 400 mg BID 01/23/20 09:00 01/24/20 21:01 UNV Magnesium Sulfate 50 ml @ 25 mls/hr Q24H 01/23/20 08:00 01/25/20 09:59 UNV Ondansetron HCl (Zofran) 4 mg PRN Q6HRS PRN 01/23/20 08:00 01/25/20 04:04 4 MG Potassium Chloride/Dextrose/ Sod Cl 1,000 ml @ 125 mls/hr Q8H 01/24/20 21:00 01/25/20 11:56 125 MLS/HR Potassium Chloride/Water 100 ml @ 100 mls/hr Q1H 01/24/20 09:00 01/24/20 12:59 DC 01/24/20 13:15 100 MLS/HR Potassium Chloride (Klor-Con) 40 meq 1X PRN 01/23/20 08:00 UNV Sennosides (Senna) 17.2 mg PRN BID PRN 01/23/20 08:00 Sodium Chloride 1,000 ml @ 250 mls/hr Q4H 01/24/20 08:00 01/24/20 19:53 DC 01/24/20 14:39 250 MLS/HR Allergies: Allergies: Coded Allergies: No Known Drug Allergies (Unverified , 10/17/19) Mental Status Examination: Mental Status Examination -[place]ic gentleman appears as a stated age Guarded and not very interactive Thought processes concrete Denies suicidal or homicidal thoughts Denies auditory or visual hallucinations Mood appears depressed Affect is dysthymic Insight is limited Judgment is fair Impulse control is fair Attention span and concentration fair Recent and remote memory intact ROS: 14 point review of system is otherwise negative except for stated above Physical Exam: Refer to Physician's note. ART EDUCATOR: No focal deficit MSK: No EPS, TDK, or abnormal involuntary movements Vitals: Vitals Vital Signs Date Time Temp Pulse Resp B/P (MAP) Pulse Ox O2 Delivery O2 Flow Rate FiO2 01/25/20 15:00 98.5 87 18 169/76 (107) 100 Room Air 98.5 Labs: Labs Laboratory Tests Test 01/23/20 21:34 01/24/20 03:45 01/24/20 07:02 01/24/20 11:02 Glucose (Fingerstick) 236 mg/dL (70-99) 401 mg/dL (70-99) 282 mg/dL (70-99) White Blood Count 12.6 x10^3/uL (4.0-11.0) Red Blood Count 4.56 x10^6/uL (4.30-5.70) Hemoglobin 14.1 g/dL (13.0-17.5) Hematocrit 41.3 % (39.0-53.0) Mean Corpuscular Volume 91 fL (79-100) Mean Corpuscular Hemoglobin 31 pg (25-35) Mean Corpuscular Hemoglobin Concent 34 g/dL (31-37) Red Cell Distribution Width 13.4 % (11.5-14.5) Platelet Count 360 x10^3/uL (140-400) Neutrophils (%) (Auto) 73 % (31-73) Lymphocytes (%) (Auto) 21 % (24-48) Monocytes (%) (Auto) 6 % (0-9) Eosinophils (%) (Auto) 0 % (0-3) Basophils (%) (Auto) 0 % (0-3) Neutrophils # (Auto) 9.2 x10^3/uL (1.8-7.7) Lymphocytes # (Auto) 2.7 x10^3/uL (1.0-4.8) Monocytes # (Auto) 0.8 x10^3/uL (0.0-1.1) Eosinophils # (Auto) 0.0 x10^3/uL (0.0-0.7) Basophils # (Auto) 0.0 x10^3/uL (0.0-0.2) Sodium Level 142 mmol/L (136-145) Potassium Level 3.9 mmol/L (3.5-5.1) Chloride Level 98 mmol/L (98-107) Carbon Dioxide Level 24 mmol/L (21-32) Anion Gap 20 (6-14) Blood Urea Nitrogen 26 mg/dL (8-26) Creatinine 1.7 mg/dL (0.7-1.3) Estimated GFR (Cockcroft-Gault) 60.2 Glucose Level 337 mg/dL (70-99) Calcium Level 9.9 mg/dL (8.5-10.1) Phosphorus Level 3.3 mg/dL (2.6-4.7) Magnesium Level 2.5 mg/dL (1.8-2.4) Test 01/24/20 16:47 01/24/20 16:55 01/24/20 17:16 01/24/20 20:28 Sodium Level 147 mmol/L (136-145) Potassium Level 3.8 mmol/L (3.5-5.1) Chloride Level 110 mmol/L (98-107) Carbon Dioxide Level 30 mmol/L (21-32) Anion Gap 7 (6-14) Blood Urea Nitrogen 24 mg/dL (8-26) Creatinine 1.5 mg/dL (0.7-1.3) Estimated GFR (Cockcroft-Gault) 69.6 BUN/Creatinine Ratio 16 (-20) Glucose Level 65 mg/dL (70-99) Calcium Level 9.6 mg/dL (8.5-10.1) Total Bilirubin 1.8 mg/dL (0.2-1.0) Aspartate Amino Transf (AST/SGOT) 15 U/L (15-37) Alanine Aminotransferase (ALT/SGPT) 18 U/L (16-63) Alkaline Phosphatase 76 U/L (46-116) Total Protein 6.8 g/dL (6.4-8.2) Albumin 3.5 g/dL (3.4-5.0) Albumin/Globulin Ratio 1.1 (1.0-1.7) Glucose (Fingerstick) 51 mg/dL (70-99) 112 mg/dL (70-99) 186 mg/dL (70-99) Test 01/25/20 05:15 01/25/20 07:31 01/25/20 11:14 01/25/20 16:58 Sodium Level 139 mmol/L (136-145) Potassium Level 4.2 mmol/L (3.5-5.1) Chloride Level 100 mmol/L (98-107) Carbon Dioxide Level 29 mmol/L (21-32) Anion Gap 10 (6-14) Blood Urea Nitrogen 21 mg/dL (8-26) Creatinine 1.4 mg/dL (0.7-1.3) Estimated GFR (Cockcroft-Gault) 75.3 BUN/Creatinine Ratio 15 (6-20) Glucose Level 322 mg/dL (70-99) Calcium Level 8.8 mg/dL (8.5-10.1) Total Bilirubin 2.2 mg/dL (0.2-1.0) Aspartate Amino Transf (AST/SGOT) 17 U/L (15-37) Alanine Aminotransferase (ALT/SGPT) 15 U/L (16-63) Alkaline Phosphatase 66 U/L (46-116) Total Protein 6.2 g/dL (6.4-8.2) Albumin 3.3 g/dL (3.4-5.0) Albumin/Globulin Ratio 1.1 (1.0-1.7) Glucose (Fingerstick) 322 mg/dL (70-99) 303 mg/dL (70-99) 62 mg/dL (70-99) Laboratory Tests Test 01/24/20 20:28 01/25/20 05:15 01/25/20 07:31 01/25/20 11:14 Glucose (Fingerstick) 186 mg/dL (70-99) 322 mg/dL (70-99) 303 mg/dL (70-99) Sodium Level 139 mmol/L (136-145) Potassium Level 4.2 mmol/L (3.5-5.1) Chloride Level 100 mmol/L (98-107) Carbon Dioxide Level 29 mmol/L (21-32) Anion Gap 10 (6-14) Blood Urea Nitrogen 21 mg/dL (8-26) Creatinine 1.4 mg/dL (0.7-1.3) Estimated GFR (Cockcroft-Gault) 75.3 BUN/Creatinine Ratio 15 (6-20) Glucose Level 322 mg/dL (70-99) Calcium Level 8.8 mg/dL (8.5-10.1) Total Bilirubin 2.2 mg/dL (0.2-1.0) Aspartate Amino Transf (AST/SGOT) 17 U/L (15-37) Alanine Aminotransferase (ALT/SGPT) 15 U/L (16-63) Alkaline Phosphatase 66 U/L (46-116) Total Protein 6.2 g/dL (6.4-8.2) Albumin 3.3 g/dL (3.4-5.0) Albumin/Globulin Ratio 1.1 (1.0-1.7) Test 01/25/20 16:58 Glucose (Fingerstick) 62 mg/dL (70-99) Diagnosis: Diagnosis: Unspecified depression, rule out major depressive disorder Unspecified anxiety, rule out anxiety disorder. Insomnia Assessment: Young -[place]ic gentleman with history of DKA and insulin-dependent diabetes with nonadherence to medications struggling with insomnia, depression. He is in agreement to start Remeron which would help with anxiety depression and insomnia altogether. Plan: Start Remeron 15 mg nightly for insomnia, depression and anxiety. Psychoeducation provided. Supportive psychotherapy provided. Risks, benefits, alternatives of the treatment with adverse drug reaction of medications are discussed. Monitor closely for symptomatology, and safety. MIKE SPAIN MD Jan 25, 2020 19:25
[2020-01-25] MEDS ORDERED: MIRTAZAPINE 15 MG TABLET PO SCH (21:00)
[2020-01-25 23:00] VITALS: BP 147/86
[2020-01-26] MEDS: POTASSIUM CL 20MEQ D5-0.45NACL 1,000 ML IV SCH ×2 (00:48→09:19)
[2020-01-26 03:26] VITALS: BP 119/74
[2020-01-26 07:00] VITALS: BP 138/90
[2020-01-26] MEDS: HEPARIN for SUB-Q USE 5,000 UNIT/ML VIAL. SQ SCH (09:00)
[2020-01-26] MEDS: INSULIN GLARGINE SYRINGE. SQ SCH (09:21)
[2020-01-26] MEDS: INSULIN LISPRO 300 UNITS/3 ML VIAL. SQ SCH ×6 (09:22→16:40)
[2020-01-26 11:00] VITALS: BP 149/90
--- NOTE | 2020-01-26 11:17 | NUR ---
Bedside Swallow Evaluation completed. Please refer to full report in intervention section for additional information. Impressions: Functional oral motor movements, functional oropharyngeal swallow w/ timely swallow initiation and WFL hyolaryngeal excursion via palp. No s/s aspiration w/ across all consistencies (thin liquids, puree and solids). Pt w/o c/o nausea during evaluation lasting 15-20 minutes. CHANNEL MARKETING COORDINATOR left room to get pt ice water and when returned pt vomiting in trash can. States he "does that all the time." Recommendations: Diet as recommended by medical staff. Oropharyngeal swallow WFL for regular diet and thin liquids. No additional ST f/u indicated.
[2020-01-26] MEDS ORDERED: MIRT15TA3 PO (11:50)
[2020-01-26] MEDS ORDERED: INSU100I41 SQ (11:50)
--- NOTE | 2020-01-26 11:51 | DISCH ---
DISCHARGE INSTRUCTIONS Condition on Discharge Condition on Discharge: Guarded Activity After Discharge Activity Instructions for Disc: Activity as tolerated Exercise Instruction after Dis: Progress as tolerated Driving Instructions after Dis: Do not drive today Weight Bearing Status after Di: As tolerated Diet after Discharge Diet after Discharge: Diabetic No Calorie Level Diet Texture: Regular Liquid Texture: Thin Liquid Wound Incision Care Wound/Incision Care: No wound care needed Checks after Discharge Checks after discharge: Check blood press - daily, Check blood sugar, ac/hs, Check your Temp as needed DC Comment: CBC, CMP Contacting the DR. after DC Call your doctor for: If your condition worsens Follow-Up Follow up with: With PCP within 1 week of discharge for insulin adjustment Treatment/Equipment after DC Adaptive Equipment Issued: None Comment: Insulin regimen changed to NovoLog 35 units BID YANET MARTIN MD Jan 26, 2020 11:51
--- NOTE | 2020-01-26 11:58 | NUR ---
SW following. Discussed with RN, pt started on Remeron 15mg nightly by Dr. Reid for insomnia, depression, anxiety. Discharge order for home with self care. Pt is a high risk readmission due to non compliance.
[2020-01-26 15:00] VITALS: BP 121/71
--- NOTE | 2020-01-26 18:38 | NUR ---
Discharge Note: PT DISCHARGED HOME WITH SELF CARE. PT LEFT FACILITY VIA [employer] CAB PASS AT 1710. PT STABLE AND ALERT UPON DISCHARGE. PT PIV REMOVED FROM FROM [facility] WITHOUT COMPLICATIONS, BANDAGE APPLED. PT EDUCATED ABOUT DISCHARGE INSTRUCTIONS, DISCHARGE MEDICATIONS, AND FOLLOW-UP INSTRUCTIONS. PT TOLD OF THE IMPORTANCE OF CONTROLLING HIS DIABETES AND TAKING THE MEDICATIONS PRESCRIBED, AND CHECKING HIS BLOOD SUGARS 4 TIMES A DAY. THIS MANAGER DRIVE CALLED TO SET UP A FOLLOW-UP APPOINTMENT WITH DR. FLOWER ON 02/06/20 AT 1PM. PT PRESCRIPTIONS FOR REMERON AND INSULIN CALLED INTO [facility] BEFORE DISCHARGE. PT VOICED NO CONCERNS AT THIS TIME. PT LEFT WITH ALL PERSONAL BELONGINGS. TIMA SINGH Discharge instructions and discharge home medications reviewed with Patient and a copy given. All questions have been answered and understanding verbalized.
--- NOTE | 2020-01-26 20:54 | PDOC3 ---
[facility]-Discharge Summary Date of Admission: Date of Admission: Jan 23, 2020 Date of Discharge: Date of Discharge: Jan 26, 2020 Admission Diagnosis: Admitting Diagnosis: DKA Anion gap metabolic acidosis Diabetes type 1 uncontrolled Medical nonadherence Acute kidney injury due to vasomotor nephropathy secondary to volume depletion vasomotor nephropathy induced by volume depletion Tobacco use disorder Cannabis use disorder Discharge Diagnosis: Discharge Diagnosis: Concern for cyclic hyperemesis syndrome DKA Anion gap metabolic acidosis Diabetes type 1 uncontrolled Medical nonadherence Acute kidney injury due to vasomotor nephropathy secondary to volume depletion vasomotor nephropathy induced by volume depletion Tobacco use disorder Cannabis use disorder Consults: Consults: psychiatry Hospital Course: Hospital Course: 24-year-old male who presents to the emergency room complaining of nausea and vomiting. He stated that this started 24 hours ago. He has had this multiple times in the past. He has not taken his insulin for 2 days. When asked why patient states no particular reason. He has not been checking his glucoses at home. He has a long history of noncompliance. He has been drinking grape juice and Sprite to make himself feel better. He denies any other infectious symptoms. He has not been running any fevers. Patient was admitted for further management for his uncontrolled DM. He was restarted on his home insuline regimen. His anion gap was closed within 24 hours and he was able to tolerate diet. Unfortunately, on several occasions, nurses noticed the patient intentionally purging his food with his index finger. At this point, his diet was changed to NPO, but he continued to sneak out of his room to grab food for himself in the refridgerator. Psych was consulted and they recommended to start the patient on Remeron for his depression. A speech evaluation was completed before discharge and he was capable of swallowing without any aspiration risk. Due to his history of his noncompliance, I have decided to change his intense insuline regimen which required several injections throughout the day to only 2 times a day with Novolog flex pen at 35 U. Patient agreed to try this method. AN appointment was made with his PCP, Dr Marie on Feb 05. The rest of his hospital course was uneventful. Disposition: Disposition/Orders: D/C to Home Activity: Activity: Resume previous activity Diet: Diet: Consistent Carbohydrate Medications: Home Meds Active Scripts Insulin NPH Hum/Reg Insulin Hm (Novolin 70-30 Flexpen) 100 Unit/1 Ml Insuln.pen, 35 UNIT SQ BID for DM 1 for 30 Days, #60 EACH Prov:YANET MARTIN MD 01/26/20 Mirtazapine (MIRTAZAPINE) 15 Mg Tablet, 15 MG PO QHS for depression for 30 Days, #30 TAB Prov:YANET MARTIN MD 01/26/20 Ondansetron (ONDANSETRON ODT) 4 Mg Tab.rapdis, 1 TAB PO PRN Q6-8HRS for VOMITING, #16 TAB Prov:LUCINDA COUCH DO 11/15/19 Metoclopramide Hcl (METOCLOPRAMIDE HCL) 10 Mg/10 Ml Solution, 5 MG PO TIDACHC for Diabetic gastroparesis for 30 Days, #120 MISC 2 Refills Prov:PRASHANTH JAMES MD 09/15/19 Reported Medications Trazodone Hcl (TRAZODONE HCL) 100 Mg Tablet, 2 TAB PO QHS for insomnia, #30 TAB 2 Refills 01/24/20 Acetaminophen (ACETAMINOPHEN) 325 Mg Tablet, 2 TAB PO PRN Q6HRS PRN for pain or fever for 24 Days, #100 TAB 0 Refills 06/07/19 Discontinued Reported Medications Insulin Glargine,Hum.rec.anlog (LANTUS SOLOSTAR) 100 Unit/1 Ml Insuln.pen, 20 UNIT SQ QHS for diabetes, #15 ML 5 Refills 01/24/20 Discontinued Scripts Insulin Lispro (HUMALOG) 100 Unit/1 Ml Cartridge, 18 UNIT SQ TIDBFRMEAL for dm for 30 Days, #1 EACH 2 Refills + Sliding scale 2u for every 50mg/dL greater than 150. Prov:PRASHANTH JAMES MD 09/15/19 Scheduled Insulin NPH Hum/Reg Insulin Hm (Novolin 70-30 Flexpen), 35 UNIT SQ BID Metoclopramide Hcl (Metoclopramide Hcl), 5 MG PO TIDACHC Mirtazapine (Mirtazapine), 15 MG PO QHS Ondansetron (Ondansetron Odt), 1 TAB PO PRN Q6-8HRS Trazodone Hcl (Trazodone Hcl), 2 TAB PO QHS, (Reported) Scheduled PRN Acetaminophen (Acetaminophen), 2 TAB PO PRN Q6HRS PRN for pain or fever, (Reported) Discontinued Medications Insulin Glargine,Hum.rec.anlog (Lantus Solostar), 20 UNIT SQ QHS, (Reported) Insulin Lispro (Humalog), 18 UNIT SQ TIDBFRMEAL Total Time: Total Time: Total time spent was 50 minutes in preparing scripts, discharge planning with SW and RN, and preparing this discharge summary. Patient seen and examined on day of discharge. Advanced care planning: A total time of > 20 minutes was spent from 1030 to 1055 face to face in discussion with the patient regarding their goals of care, which includes his DM management and insulin regimen and his nonadherence to his medication. It was discussed extensively in details that the patient needs to take his insulin or he will suffer the complications of his morbidity. Patient states he does understand the severity of his disease and will follow up with his PCP Justicifation of Admission Dx: Justifications for Admission: Justification of Admission Dx: N/A DKA: YANET HU MD Jan 26, 2020 20:54
== END 2020-01-26 17:10 | disposition home or self-care (01) | DRG 637 ==
LOC: ER 18:54 → 5 NORTH 21:14
PROVIDERS: ADMIT Family Medicine; ATTEND Family Medicine
DX: E11.10 Type 2 diabetes mellitus with ketoacidosis without coma (principal); N17.0 Acute kidney failure with tubular necrosis; E87.2 Acidosis; G43.A0 Cyclical vomiting, in migraine, not intractable; Z91.19 Patient's noncompliance with other medical treatment and regimen; F32.9 Major depressive disorder, single episode, unspecified; E86.9 Volume depletion, unspecified; F17.210 Nicotine dependence, cigarettes, uncomplicated; E86.0 Dehydration; I10 Essential (primary) hypertension; Z91.14 Patient's other noncompliance with medication regimen; F41.9 Anxiety disorder, unspecified
CPT/HCPCS: 36415; 80048; 80053; 80307; 81001; 82962; 83735; 84100; 85025; 96361; 96374; 99285; J1815; J2405; J3480; J7030; 92610-GN; G0378

== ENCOUNTER 2020-05-05 17:02 | Inpatient (IN) | payer OTHER ==
[~2020-05-05] VITALS: Ht 172.7 cm; Wt 63.4 kg
[~2020-05-05 17:02] MED LIST changes: +INSU100I41 SQ; +INSU100V6 SQ; +MIRT-7 PO; -POLY17PO28 PO; +POLY17PO52 PO; +TRAZ-123 PO
[2020-05-05] MEDS ORDERED: IV NORMAL SALINE 1000ML BAG 1,000 ML IV SCH (17:30)
[2020-05-05 17:57] LABS: BASO % 0 % (0-3); EOS % 0 % (0-3); HEMATOCRIT 49.8 % (39.0-53.0); LYMPH # 1.5 x10^3/uL (1.0-4.8); LYMPH % 16 % (24-48); MEAN CORPUSCULAR HEMOGLOBIN 30 pg (25-35); MEAN CORPUSCULAR HGB CONC 34 g/dL (31-37); MEAN CORPUSCULAR VOLUME 89 fL (79-100); MONO # 0.9 x10^3/uL (0.0-1.1); MONO % 9 % (0-9); NEUT # 7.2 x10^3/uL (1.8-7.7); NEUT % 75 % (31-73); PLATELET COUNT 559 x10^3/uL (140-400); RED BLOOD COUNT 5.59 x10^6/uL (4.30-5.70); RED CELL DISTRIBUTION WIDTH 13.8 % (11.5-14.5); WHITE BLOOD COUNT 9.7 x10^3/uL (4.0-11.0)
[2020-05-05 18:07] LABS: CALCIUM 9.7 mg/dL (8.5-10.1); CREATININE 3.6 mg/dL (0.7-1.3); GFR 25.1; POTASSIUM 4.2 mmol/L (3.5-5.1)
[2020-05-05 18:10] LABS: ALBUMIN 4.4 g/dL (3.4-5.0); ALBUMIN/GLOBULIN RATIO 0.9 (1.0-1.7); TOTAL BILIRUBIN 1.7 mg/dL (0.2-1.0); TOTAL PROTEIN 9.3 g/dL (6.4-8.2)
--- NOTE | 2020-05-05 18:16 | RAD ---
Study: XR CHEST 1V Indication: Weakness. Comparison: 03/29/2020 Findings: Unremarkable cardiomediastinal silhouette and adilia. No focal airspace opacity, pleural effusion or pn eumothorax. Impression: No acute radiographic abnormality of the chest. Electronically signed by: YEVGENIY CHRIS MD (05/05/2020 6:13 PM) [facility]
[2020-05-05] MEDS ORDERED: INSULIN,REGULAR 100 UNIT DRIP 100 ML IV ONE (18:30)
[2020-05-05] MEDS ORDERED: ONDANSETRON PF 4 MG/2 ML VIAL. IVP ONE (18:30)
--- NOTE | 2020-05-05 18:38 | PHYS DOC ---
Past Medical History Past Medical History: Diabetes-Type I Additional Past Medical Histor: cataracts, blind/visual impairment Past Surgical History: Other Additional Past Surgical Histo: "CATARACT SURGERY" Smoking Status: Current Every Day Smoker Alcohol Use: None Drug Use: Marijuana Adult General Chief Complaint Chief Complaint: NAUSEA/VOMITING/DIARRHA HPI HPI Patient is a 25 year old male with a known past medical history of type 1 diabetes presents emergency department for new onset of nausea vomiting. Patient states for the last 3 days has had new onset of vomiting intermittent vomiting which has been nonbloody nonbilious. Patient states this initiated after a was drinking. Has not been running from the hospital since that time. Does complain of mild abdominal pain but says it is generalized. Denies any diarrhea. Denies any Review of Systems Review of Systems Constitutional: Denies fever or chills [] Eyes: Denies change in visual acuity, redness, or eye pain [] HENT: Denies nasal congestion or sore throat [] Respiratory: Denies cough or shortness of breath [] Cardiovascular: No additional information not addressed in HPI [] GI: Denies abdominal pain, nausea, vomiting, bloody stools or diarrhea [] : Denies dysuria or hematuria [] Musculoskeletal: Denies back pain or joint pain [] Integument: Denies rash or skin lesions [] Neurologic: Denies headache, focal weakness or sensory changes [] Endocrine: Denies polyuria or polydipsia [] All other systems were reviewed and found to be within normal limits, except as documented in this note. Current Medications Current Medications Current Medications Medications (Trade) Dose Ordered Sig/[facility] Start Time Stop Time Status Last Admin Dose Admin Insulin Human Regular 100 ml @ 0 mls/hr 1X ONCE 05/05/20 18:30 05/05/20 18:31 DC Ondansetron HCl (Zofran) 4 mg 1X ONCE 05/05/20 18:30 05/05/20 18:31 DC Sodium Chloride 1,000 ml @ 1,000 mls/hr Q1H 05/05/20 17:30 05/05/20 18:29 DC 05/05/20 17:25 1,000 MLS/HR Allergies Allergies Allergies Coded Allergies Type Severity Reaction Last Updated Verified No Known Drug Allergies 03/29/20 No Physical Exam Physical Exam Constitutional: Well developed, well nourished, no acute distress, non-toxic appearance. [] HENT: Normocephalic, atraumatic, bilateral external ears normal, oropharynx moist, no oral exudates, nose normal. [] Eyes: PERRLA, EOMI, conjunctiva normal, no discharge. [] Neck: Normal range of motion, no tenderness, supple, no stridor. [] Cardiovascular:Heart rate regular rhythm, no murmur [] Lungs & Thorax: Bilateral breath sounds clear to auscultation [] Abdomen: Bowel sounds normal, soft, no tenderness, no masses, no pulsatile masses. [] Skin: Warm, dry, no erythema, no rash. [] Back: No tenderness, no CVA tenderness. [] Extremities: No tenderness, no cyanosis, no clubbing, ROM intact, no edema. [] Neurologic: Alert and oriented X 3, normal motor function, normal sensory function, no focal deficits noted. [] Psychologic: Affect normal, judgement normal, mood normal. [] Current Patient Data Vital Signs Vital Signs Date Time Temp Pulse Resp B/P (MAP) Pulse Ox O2 Delivery O2 Flow Rate FiO2 05/05/20 17:55 97.9 109 20 129/71 (90) 100 Room Air 97.9 Lab Values Laboratory Tests Test 05/05/20 17:43 White Blood Count 9.7 x10^3/uL (4.0-11.0) Red Blood Count 5.59 x10^6/uL (4.30-5.70) Hemoglobin 17.0 g/dL (13.0-17.5) Hematocrit 49.8 % (39.0-53.0) Mean Corpuscular Volume 89 fL (79-100) Mean Corpuscular Hemoglobin 30 pg (25-35) Mean Corpuscular Hemoglobin Concent 34 g/dL (31-37) Red Cell Distribution Width 13.8 % (11.5-14.5) Platelet Count 559 x10^3/uL (140-400) H Neutrophils (%) (Auto) 75 % (31-73) H Lymphocytes (%) (Auto) 16 % (24-48) L Monocytes (%) (Auto) 9 % (0-9) Eosinophils (%) (Auto) 0 % (0-3) Basophils (%) (Auto) 0 % (0-3) Neutrophils # (Auto) 7.2 x10^3/uL (1.8-7.7) Lymphocytes # (Auto) 1.5 x10^3/uL (1.0-4.8) Monocytes # (Auto) 0.9 x10^3/uL (0.0-1.1) Eosinophils # (Auto) 0.0 x10^3/uL (0.0-0.7) Basophils # (Auto) 0.0 x10^3/uL (0.0-0.2) Sodium Level 132 mmol/L (136-145) L Potassium Level 4.2 mmol/L (3.5-5.1) Chloride Level 78 mmol/L (98-107) L Carbon Dioxide Level 31 mmol/L (21-32) Anion Gap 23 (6-14) H Blood Urea Nitrogen 61 mg/dL (8-26) H Creatinine 3.6 mg/dL (0.7-1.3) H Estimated GFR (Cockcroft-Gault) 25.1 BUN/Creatinine Ratio 17 (6-20) Glucose Level 777 mg/dL (70-99) *H Calcium Level 9.7 mg/dL (8.5-10.1) Total Bilirubin 1.7 mg/dL (0.2-1.0) H Aspartate Amino Transferase (AST) 11 U/L (15-37) L Alanine Aminotransferase (ALT) 20 U/L (16-63) Alkaline Phosphatase 127 U/L (46-116) H Creatine Kinase 44 U/L (39-308) Total Protein 9.3 g/dL (6.4-8.2) H Albumin 4.4 g/dL (3.4-5.0) Albumin/Globulin Ratio 0.9 (1.0-1.7) L Lipase 94 U/L (73-393) Laboratory Tests 05/05/20 17:43 Laboratory Tests 05/05/20 17:43 EKG EKG [] Radiology/Procedures Radiology/Procedures [] Course & Med Decision Making Course & Med Decision Making Pertinent Labs and Imaging studies reviewed. (See chart for details) 25-year-old male presenting with acute dehydration evident on physical exam with dry mucous membranes abdominal pain. In the setting of type 1 diabetes this is most suggestive for acute diabetic ketoacidosis. Labs were obtained to demonstrate an elevated anion gap 23, glucose of 770, hyponatremia and acute renal failure all likely secondary to severe dehydration and diabetic ketoacidosis. Patient was given a liter of fluid on arrival has not been started on insulin drip, fluids. No evidence of infection at this time. Will plan to admit to the ICU Dragjs Disclaimer Dragon Disclaimer This electronic medical record was generated, in whole or in part, using a voice recognition dictation system. Departure Departure Impression: Primary Impression: DKA (diabetic ketoacidoses) Disposition: ADMITTED INPT THIS HOSP Condition: CRITICAL Referrals: Razia FLOWER MD (PCP) CAROL SANDOVAL MD May 05, 2020 18:38
[2020-05-05] MEDS ORDERED: MORPHINE SULFATE 2 MG/ML VIAL. IV PRN (18:45)
[2020-05-05] MEDS ORDERED: ONDANSETRON PF 4 MG/2 ML VIAL. IV PRN (18:45)
[2020-05-05 19:04] LABS: CREATINE KINASE 47 U/L (39-308)
[2020-05-05] MEDS ORDERED: IV NORMAL SALINE 1000ML BAG 1,000 ML IV ONE (19:15)
[2020-05-06] VITALS (19 sets, daily range): BP systolic 97–128; BP diastolic 61–85
[2020-05-06] MEDS ORDERED: IV NORMAL SALINE 1000ML BAG 1,000 ML IV ONE ×3 (01:00→13:30)
[2020-05-06 01:14] LABS: BASO # 0.1 x10^3/uL (0.0-0.2); BASO % 1 % (0-3); EOS % 0 % (0-3); HEMATOCRIT 45.6 % (39.0-53.0); HEMOGLOBIN 16.2 g/dL (13.0-17.5); LYMPH # 2.2 x10^3/uL (1.0-4.8); LYMPH % 18 % (24-48); MEAN CORPUSCULAR HEMOGLOBIN 31 pg (25-35); MEAN CORPUSCULAR HGB CONC 36 g/dL (31-37); MEAN CORPUSCULAR VOLUME 86 fL (79-100); MONO # 0.9 x10^3/uL (0.0-1.1); MONO % 7 % (0-9); NEUT # 9.2 x10^3/uL (1.8-7.7); NEUT % 75 % (31-73); PLATELET COUNT 579 x10^3/uL (140-400); RED BLOOD COUNT 5.28 x10^6/uL (4.30-5.70); RED CELL DISTRIBUTION WIDTH 13.6 % (11.5-14.5); WHITE BLOOD COUNT 12.3 x10^3/uL (4.0-11.0)
[2020-05-06 01:34] LABS: CALCIUM 9.4 mg/dL (8.5-10.1); MAGNESIUM 2.9 mg/dL (1.8-2.4); PHOSPHORUS 3.4 mg/dL (2.6-4.7)
[2020-05-06] MEDS ORDERED: IV DEXTROSE 5% 250 ML BAG. IV PRN (02:00)
[2020-05-06] MEDS ORDERED: DEXTROSE 50% 25 GM / 50ML DISP.SYRIN. IV PRN (02:00)
[2020-05-06] MEDS: INSULIN GLARGINE SYRINGE. SQ SCH ×2 (02:21→20:39)
[2020-05-06] MEDS ORDERED: POTASSIUM CHLORIDE 20 MEQ TABLET.ER. PO ONE ×2 (02:30→08:15)
--- NOTE | 2020-05-06 03:37 | EKG ---
[facility] [address] [place] [address] Test Date: 2020-05-05 Test Time: 18:06:13 Pat Name: TIMA SINGH Department: Room: Gender: M Model Dresser: : 1995 Requested By: CAROL SANDOVAL Order Number: [id number] Reading MD: Measurements Intervals [place] Rate: 111 P: 76 MI: 104 QRS: 91 QRSD: 94 T: 36 QT: 350 QTc: 479 Interpretive Statements SINUS TACHYCARDIA LEFT ATRIAL ABNORMALITY RIGHTWARD AXIS QRS(T) CONTOUR ABNORMALITY CONSIDER ANTEROLATERAL MYOCARDIAL DAMAGE ABNORMAL ECG RI6.01 No previous ECG available for comparison
--- NOTE | 2020-05-06 05:15 | NUR ---
Pt brought to ICU room 107 at 0135 on bed by ED RN. Pt able to transfer self to ICU bed with SBA. Pt alert and oriented, afebrile, LCTA upon arrival. Pt denied nausea but did have complaints of abdominal pain upon admission. Labs drawn by ED resulted shortly after pt admission. Pt anion gap noted to be closed. Call placed to Dr. Lr to notify of pt admission, status, and lab results. Received order to start pt on diabetic diet as tolerated, give 20 units Lantus now then QHS, 18 units Humalog TID, 30 mEq Potassium PO. Orders entered into system and implemented. Insulin gtt shut off one hour after Lantus administration per protocol. Pt has had fluids PO. Pt reminded to drink fluids slowly to reduce occurrence of n/v. Pt has been given PRN IVP Zofran once since admission. Pt stated "I refuse to get potassium IV." Waiting for n/v to reside before administration of PO Potassium. Pt able to answer admission assessments by himself. Pt currently resting with eyes closed and call light within reach.
[2020-05-06] MEDS: INSULIN LISPRO 300 UNITS/3 ML VIAL. SQ SCH ×6 (08:00→17:59)
--- NOTE | 2020-05-06 08:10 | PDOC1 ---
History and Physical Date of Admission Date of Admission DATE: 05/06/20 TIME: 08:10 History of Present Illness History of Present Illness Mr. Molina is a 25-year-old male presenting with type 1 diabetes with abdominal pain nausea vomiting and elevated blood sugars. He has many admits here, for about the same, He was recently was admitted for DKA and has many prior admits to the ICU. . He has been tryihg to take his insulin. His pain is in his epigastrium radiates into his chest. It is mild to moderate. No alleviating or exacerbating factors. He denies fevers chills. He denies cough. he has ongoing abd pain, nausea improved Past Medical History Cardiovascular: Hyperlipidemia GI: No pertinent hx Heme/Onc: No pertinent hx Hepatobiliary: No pertinent hx Psych: Addictions Endocrine: Diabetes Past Surgical History Past Surgical History: Cataract Removal Family History Family History: Hypertension Social History ALCOHOL: none Drugs: Marijuana Current Medications Current Medications Current Medications Sodium Chloride 1,000 ml @ 1,000 mls/hr Q1H IV Last administered on 05/05/20at 17:25; Start 05/05/20 at 17:30; Stop 05/05/20 at 18:29; Status DC Insulin Human Regular 100 ml @ 0 mls/hr 1X ONCE IV Last administered on 05/05/20at 19:32; Start 05/05/20 at 18:30; Stop 05/05/20 at 18:31; Status DC Ondansetron HCl (Zofran) 4 mg 1X ONCE IVP ; Start 05/05/20 at 18:30; Stop 05/05/20 at 18:31; Status DC Ondansetron HCl (Zofran) 4 mg PRN Q8HRS PRN IV NAUSEA/VOMITING Last administered on 05/06/20at 02:27; Start 05/05/20 at 18:45; Stop 05/06/20 at 18:44 Morphine Sulfate (Morphine Sulfate) 2 mg PRN Q2HR PRN IV PAIN Last administered on 05/06/20at 02:10; Start 05/05/20 at 18:45; Stop 05/06/20 at 18:44 Sodium Chloride 1,000 ml @ 1,000 mls/hr 1X ONCE IV Last administered on 05/05/20at 19:11; Start 05/05/20 at 19:15; Stop 05/05/20 at 20:14; Status DC Sodium Chloride 1,000 ml @ 250 mls/hr 1X ONCE IV ; Start 05/06/20 at 01:00; Stop 05/06/20 at 04:59; Status DC Insulin Human Lispro (HumaLOG) 18 units TIDWMEALS SQ ; Start 05/06/20 at 08:00 Insulin Glargine (Lantus Syringe) 20 unit QHS SQ Last administered on 05/06/20at 02:21; Start 05/06/20 at 02:00 Potassium Chloride (Klor-Con) 30 meq 1X ONCE PO ; Start 05/06/20 at 02:30; Stop 05/06/20 at 02:31; Status DC Insulin Human Lispro (HumaLOG) 0-5 UNITS TIDWMEALS SQ ; Start 05/06/20 at 08:00 Dextrose (Dextrose 50%-Water Syringe) 12.5 gm PRN Q15MIN PRN IV SEE COMMENTS; Start 05/06/20 at 02:00 Dextrose (Iv Dextrose 5%) 250 ml PRN Q15MIN PRN IV SEE COMMENTS; Start 05/06/20 at 02:00 Active Scripts Active Ondansetron Odt (Ondansetron) 4 Mg Tab.rapdis 1 Tab PO PRN Q6-8HRS Reported Lantus Solostar (Insulin Glargine,Hum.rec.anlog) 100 Unit/1 Ml Insuln.pen 20 Un it SQ QHS Humalog (Insulin Lispro) 100 Unit/1 Ml Vial 18 Unit SQ TIDWMEALS Trazodone Hcl 100 Mg Tablet 2 Tab PO QHS Allergies Allergies: Coded Allergies: No Known Drug Allergies (Unverified , 03/29/20) Vitals Vitals Vital Signs Date Time Temp Pulse Resp B/P (MAP) Pulse Ox O2 Delivery O2 Flow Rate FiO2 05/06/20 07:45 Room Air 05/06/20 07:00 97.9 100 114/82 (93) 95 97.9 05/06/20 06:00 21 Labs Labs Laboratory Tests Test 05/05/20 17:43 05/05/20 18:35 05/05/20 20:30 05/05/20 21:37 White Blood Count 9.7 x10^3/uL (4.0-11.0) Red Blood Count 5.59 x10^6/uL (4.30-5.70) Hemoglobin 17.0 g/dL (13.0-17.5) Hematocrit 49.8 % (39.0-53.0) Mean Corpuscular Volume 89 fL (79-100) Mean Corpuscular Hemoglobin 30 pg (25-35) Mean Corpuscular Hemoglobin Concent 34 g/dL (31-37) Red Cell Distribution Width 13.8 % (11.5-14.5) Platelet Count 559 x10^3/uL (140-400) Neutrophils (%) (Auto) 75 % (31-73) Lymphocytes (%) (Auto) 16 % (24-48) Monocytes (%) (Auto) 9 % (0-9) Eosinophils (%) (Auto) 0 % (0-3) Basophils (%) (Auto) 0 % (0-3) Neutrophils # (Auto) 7.2 x10^3/uL (1.8-7.7) Lymphocytes # (Auto) 1.5 x10^3/uL (1.0-4.8) Monocytes # (Auto) 0.9 x10^3/uL (0.0-1.1) Eosinophils # (Auto) 0.0 x10^3/uL (0.0-0.7) Basophils # (Auto) 0.0 x10^3/uL (0.0-0.2) Sodium Level 132 mmol/L (136-145) Potassium Level 4.2 mmol/L (3.5-5.1) Chloride Level 78 mmol/L (98-107) Carbon Dioxide Level 31 mmol/L (21-32) Anion Gap 23 (6-14) Blood Urea Nitrogen 61 mg/dL (8-26) Creatinine 3.6 mg/dL (0.7-1.3) Estimated GFR (Cockcroft-Gault) 25.1 BUN/Creatinine Ratio 17 (6-20) Glucose Level 777 mg/dL (70-99) Calcium Level 9.7 mg/dL (8.5-10.1) Total Bilirubin 1.7 mg/dL (0.2-1.0) Aspartate Amino Transf (AST/SGOT) 11 U/L (15-37) Alanine Aminotransferase (ALT/SGPT) 20 U/L (16-63) Alkaline Phosphatase 127 U/L (46-116) Creatine Kinase 44 U/L (39-308) 47 U/L (39-308) Total Protein 9.3 g/dL (6.4-8.2) Albumin 4.4 g/dL (3.4-5.0) Albumin/Globulin Ratio 0.9 (1.0-1.7) Lipase 94 U/L (73-393) Creatine Kinase MB (Mass) < 0.5 ng/mL (0.0-3.6) Creatine Kinase MB Relative Index % (0-4) Glucose (Fingerstick) 584 mg/dL (70-99) 469 mg/dL (70-99) Test 05/05/20 22:49 05/06/20 00:03 05/06/20 01:04 05/06/20 01:05 Glucose (Fingerstick) 341 mg/dL (70-99) 311 mg/dL (70-99) 201 mg/dL (70-99) White Blood Count 12.3 x10^3/uL (4.0-11.0) Red Blood Count 5.28 x10^6/uL (4.30-5.70) Hemoglobin 16.2 g/dL (13.0-17.5) Hematocrit 45.6 % (39.0-53.0) Mean Corpuscular Volume 86 fL (79-100) Mean Corpuscular Hemoglobin 31 pg (25-35) Mean Corpuscular Hemoglobin Concent 36 g/dL (31-37) Red Cell Distribution Width 13.6 % (11.5-14.5) Platelet Count 579 x10^3/uL (140-400) Neutrophils (%) (Auto) 75 % (31-73) Lymphocytes (%) (Auto) 18 % (24-48) Monocytes (%) (Auto) 7 % (0-9) Eosinophils (%) (Auto) 0 % (0-3) Basophils (%) (Auto) 1 % (0-3) Neutrophils # (Auto) 9.2 x10^3/uL (1.8-7.7) Lymphocytes # (Auto) 2.2 x10^3/uL (1.0-4.8) Monocytes # (Auto) 0.9 x10^3/uL (0.0-1.1) Eosinophils # (Auto) 0.0 x10^3/uL (0.0-0.7) Basophils # (Auto) 0.1 x10^3/uL (0.0-0.2) Sodium Level 143 mmol/L (136-145) Potassium Level 3.0 mmol/L (3.5-5.1) Chloride Level 95 mmol/L (98-107) Carbon Dioxide Level 39 mmol/L (21-32) Anion Gap 9 (6-14) Blood Urea Nitrogen 57 mg/dL (8-26) Creatinine 3.0 mg/dL (0.7-1.3) Estimated GFR (Cockcroft-Gault) 31.0 Glucose Level 275 mg/dL (70-99) Calcium Level 9.4 mg/dL (8.5-10.1) Phosphorus Level 3.4 mg/dL (2.6-4.7) Magnesium Level 2.9 mg/dL (1.8-2.4) Laboratory Tests Test 05/05/20 17:43 05/05/20 18:35 05/05/20 20:30 05/05/20 21:37 White Blood Count 9.7 x10^3/uL (4.0-11.0) Red Blood Count 5.59 x10^6/uL (4.30-5.70) Hemoglobin 17.0 g/dL (13.0-17.5) Hematocrit 49.8 % (39.0-53.0) Mean Corpuscular Volume 89 fL (79-100) Mean Corpuscular Hemoglobin 30 pg (25-35) Mean Corpuscular Hemoglobin Concent 34 g/dL (31-37) Red Cell Distribution Width 13.8 % (11.5-14.5) Platelet Count 559 x10^3/uL (140-400) Neutrophils (%) (Auto) 75 % (31-73) Lymphocytes (%) (Auto) 16 % (24-48) Monocytes (%) (Auto) 9 % (0-9) Eosinophils (%) (Auto) 0 % (0-3) Basophils (%) (Auto) 0 % (0-3) Neutrophils # (Auto) 7.2 x10^3/uL (1.8-7.7) Lymphocytes # (Auto) 1.5 x10^3/uL (1.0-4.8) Monocytes # (Auto) 0.9 x10^3/uL (0.0-1.1) Eosinophils # (Auto) 0.0 x10^3/uL (0.0-0.7) Basophils # (Auto) 0.0 x10^3/uL (0.0-0.2) Sodium Level 132 mmol/L (136-145) Potassium Level 4.2 mmol/L (3.5-5.1) Chloride Level 78 mmol/L (98-107) Carbon Dioxide Level 31 mmol/L (21-32) Anion Gap 23 (6-14) Blood Urea Nitrogen 61 mg/dL (8-26) Creatinine 3.6 mg/dL (0.7-1.3) Estimated GFR (Cockcroft-Gault) 25.1 BUN/Creatinine Ratio 17 (6-20) Glucose Level 777 mg/dL (70-99) Calcium Level 9.7 mg/dL (8.5-10.1) Total Bilirubin 1.7 mg/dL (0.2-1.0) Aspartate Amino Transf (AST/SGOT) 11 U/L (15-37) Alanine Aminotransferase (ALT/SGPT) 20 U/L (16-63) Alkaline Phosphatase 127 U/L (46-116) Creatine Kinase 44 U/L (39-308) 47 U/L (39-308) Total Protein 9.3 g/dL (6.4-8.2) Albumin 4.4 g/dL (3.4-5.0) Albumin/Globulin Ratio 0.9 (1.0-1.7) Lipase 94 U/L (73-393) Creatine Kinase MB (Mass) < 0.5 ng/mL (0.0-3.6) Creatine Kinase MB Relative Index % (0-4) Glucose (Fingerstick) 584 mg/dL (70-99) 469 mg/dL (70-99) Test 05/05/20 22:49 05/06/20 00:03 05/06/20 01:04 05/06/20 01:05 Glucose (Fingerstick) 341 mg/dL (70-99) 311 mg/dL (70-99) 201 mg/dL (70-99) White Blood Count 12.3 x10^3/uL (4.0-11.0) Red Blood Count 5.28 x10^6/uL (4.30-5.70) Hemoglobin 16.2 g/dL (13.0-17.5) Hematocrit 45.6 % (39.0-53.0) Mean Corpuscular Volume 86 fL (79-100) Mean Corpuscular Hemoglobin 31 pg (25-35) Mean Corpuscular Hemoglobin Concent 36 g/dL (31-37) Red Cell Distribution Width 13.6 % (11.5-14.5) Platelet Count 579 x10^3/uL (140-400) Neutrophils (%) (Auto) 75 % (31-73) Lymphocytes (%) (Auto) 18 % (24-48) Monocytes (%) (Auto) 7 % (0-9) Eosinophils (%) (Auto) 0 % (0-3) Basophils (%) (Auto) 1 % (0-3) Neutrophils # (Auto) 9.2 x10^3/uL (1.8-7.7) Lymphocytes # (Auto) 2.2 x10^3/uL (1.0-4.8) Monocytes # (Auto) 0.9 x10^3/uL (0.0-1.1) Eosinophils # (Auto) 0.0 x10^3/uL (0.0-0.7) Basophils # (Auto) 0.1 x10^3/uL (0.0-0.2) Sodium Level 143 mmol/L (136-145) Potassium Level 3.0 mmol/L (3.5-5.1) Chloride Level 95 mmol/L (98-107) Carbon Dioxide Level 39 mmol/L (21-32) Anion Gap 9 (6-14) Blood Urea Nitrogen 57 mg/dL (8-26) Creatinine 3.0 mg/dL (0.7-1.3) Estimated GFR (Cockcroft-Gault) 31.0 Glucose Level 275 mg/dL (70-99) Calcium Level 9.4 mg/dL (8.5-10.1) Phosphorus Level 3.4 mg/dL (2.6-4.7) Magnesium Level 2.9 mg/dL (1.8-2.4) VTE Prophylaxis Ordered VTE Prophylaxis Devices: No VTE Pharmacological Prophylaxi: Yes Justifications for Admission Other Justification severe hyperglycemia and NPO status JEFFREY GERMAN MD May 06, 2020 08:10
[2020-05-06] MEDS: POTASSIUM CHLORIDE 20 MEQ TABLET.ER. PO SCH (08:30)
[2020-05-06] MEDS: ONDANSETRON PF 4 MG/2 ML VIAL. IV PRN ×2 (08:39→16:48)
--- NOTE | 2020-05-06 13:25 | PDOC2 ---
CONSULT Date of Consult Date of Consult DATE: 05/06/20 TIME: 13:06 Reason for Consult Reason for Consult: LJ Identification/Chief Complaint Chief Complaint Vomiting Source Source: Chart review, Patient History of Present Illness Reason for Visit: Pt is a 25-year-old male with Dx of type 1 diabetes presented with abdominal pain ,nausea ,vomiting and elevated blood sugars. He has had many admits here, for the same, He was recently admitted for DKA His pain is in his epigastrium radiates into his chest. It is mild to moderate. No alleviating or exacerbating factors. He denies fevers chills. He denies cough. he has ongoing abd pain, He is having vomiting, unable to keep fluids down. Denies any urinary complaints , per nursing adequate uop . Denies any SOB. Past Medical History Cardiovascular: Hyperlipidemia GI: No pertinent hx Heme/Onc: No pertinent hx Hepatobiliary: No pertinent hx Psych: Addictions Endocrine: Diabetes Past Surgical History Past Surgical History: Cataract Removal Family History Family History: Hypertension Social History ALCOHOL: none Drugs: Marijuana Current Medications Current Medications Current Medications Sodium Chloride 1,000 ml @ 1,000 mls/hr Q1H IV Last administered on 05/05/20at 17:25; Start 05/05/20 at 17:30; Stop 05/05/20 at 18:29; Status DC Insulin Human Regular 100 ml @ 0 mls/hr 1X ONCE IV Last administered on 05/05/20at 19:32; Start 05/05/20 at 18:30; Stop 05/05/20 at 18:31; Status DC Ondansetron HCl (Zofran) 4 mg 1X ONCE IVP ; Start 05/05/20 at 18:30; Stop 05/05/20 at 18:31; Status DC Ondansetron HCl (Zofran) 4 mg PRN Q8HRS PRN IV NAUSEA/VOMITING Last administered on 05/06/20at 02:27; Start 05/05/20 at 18:45; Stop 05/06/20 at 08:16; Status DC Morphine Sulfate (Morphine Sulfate) 2 mg PRN Q2HR PRN IV PAIN Last administered on 05/06/20at 02:10; Start 05/05/20 at 18:45; Stop 05/06/20 at 18:44 Sodium Chloride 1,000 ml @ 1,000 mls/hr 1X ONCE IV Last administered on 05/05/20at 19:11; Start 05/05/20 at 19:15; Stop 05/05/20 at 20:14; Status DC Sodium Chloride 1,000 ml @ 250 mls/hr 1X ONCE IV Last administered on 05/06/20at 01:00; Start 05/06/20 at 01:00; Stop 05/06/20 at 04:59; Status DC Insulin Human Lispro (HumaLOG) 18 units TIDWMEALS SQ Last administered on 05/06/20at 11:30; Start 05/06/20 at 08:00 Insulin Glargine (Lantus Syringe) 20 unit QHS SQ Last administered on 05/06/20at 02:21; Start 05/06/20 at 02:00 Potassium Chloride (Klor-Con) 30 meq 1X ONCE PO ; Start 05/06/20 at 02:30; Stop 05/06/20 at 02:31; Status DC Insulin Human Lispro (HumaLOG) 0-5 UNITS TIDWMEALS SQ Last administered on 05/06/20at 11:29; Start 05/06/20 at 08:00 Dextrose (Dextrose 50%-Water Syringe) 12.5 gm PRN Q15MIN PRN IV SEE COMMENTS; Start 05/06/20 at 02:00 Dextrose (Iv Dextrose 5%) 250 ml PRN Q15MIN PRN IV SEE COMMENTS; Start 05/06/20 at 02:00 Potassium Chloride (Klor-Con) 40 meq 1X ONCE PO Last administered on 05/06/20at 08:39; Start 05/06/20 at 08:15; Stop 05/06/20 at 08:33; Status DC Potassium Chloride (Klor-Con) 20 meq DAILYWBKFT PO ; Start 05/06/20 at 08:30 Ondansetron HCl (Zofran) 8 mg PRN Q8HRS PRN IV NAUSEA/VOMITING Last administered on 05/06/20at 08:39; Start 05/06/20 at 08:15 Sodium Chloride 1,000 ml @ 1,000 mls/hr 1X ONCE IV Last administered on 05/06/20at 08:38; Start 05/06/20 at 08:30; Stop 05/06/20 at 09:29; Status DC Active Scripts Active Ondansetron Odt (Ondansetron) 4 Mg Tab.rapdis 1 Tab PO PRN Q6-8HRS Reported Lantus Solostar (Insulin Glargine,Hum.rec.anlog) 100 Unit/1 Ml Insuln.pen 20 Unit SQ QHS Humalog (Insulin Lispro) 100 Unit/1 Ml Vial 18 Unit SQ TIDWMEALS Trazodone Hcl 100 Mg Tablet 2 Tab PO QHS Allergies Allergies: Coded Allergies: No Known Drug Allergies (Unverified , 03/29/20) ROS Review of System Per HPI , rest of the ROS is negative Physical Exam Physical Exam Gen NAD HEEN OM dry, anicteric Neck suple Lungs CTA , non labored CV RRR Abd Soft, BS + Ext No edema Skin No rash No dobson, No cva or SP tenderness Neuro AxO, grossly normal Vital Signs Vital Signs Date Time Temp Pulse Resp B/P (MAP) Pulse Ox O2 Delivery O2 Flow Rate FiO2 05/06/20 11:44 Room Air 05/06/20 10:49 97.8 105 20 106/61 (76) 95 97.8 Assessment & Plan LJ - pre-renal 2/2 DKA , non Oliguric , improving slowly CT scan 03/2020 unremarkable kidneys and bladder per report , UA in Dec unremarkable except overt proteinuria Continue management of DKA per protocol , supportive care, Strict I/O ( bladder scan prn ) , avoid nephrotoxins Intractable nausea and vomiting DM1 - A1c 13<--15.2 on 04/2019 LJ during previous hospitalizations (? CKD) not seen by renal in the past DKA- on protocol, per primary HypoKalemia- replace Labs Labs Laboratory Tests Test 05/05/20 17:43 05/05/20 18:35 05/05/20 20:30 05/05/20 21:37 White Blood Count 9.7 x10^3/uL (4.0-11.0) Red Blood Count 5.59 x10^6/uL (4.30-5.70) Hemoglobin 17.0 g/dL (13.0-17.5) Hematocrit 49.8 % (39.0-53.0) Mean Corpuscular Volume 89 fL (79-100) Mean Corpuscular Hemoglobin 30 pg (25-35) Mean Corpuscular Hemoglobin Concent 34 g/dL (31-37) Red Cell Distribution Width 13.8 % (11.5-14.5) Platelet Count 559 x10^3/uL (140-400) Neutrophils (%) (Auto) 75 % (31-73) Lymphocytes (%) (Auto) 16 % (24-48) Monocytes (%) (Auto) 9 % (0-9) Eosinophils (%) (Auto) 0 % (0-3) Basophils (%) (Auto) 0 % (0-3) Neutrophils # (Auto) 7.2 x10^3/uL (1.8-7.7) Lymphocytes # (Auto) 1.5 x10^3/uL (1.0-4.8) Monocytes # (Auto) 0.9 x10^3/uL (0.0-1.1) Eosinophils # (Auto) 0.0 x10^3/uL (0.0-0.7) Basophils # (Auto) 0.0 x10^3/uL (0.0-0.2) Sodium Level 132 mmol/L (136-145) Potassium Level 4.2 mmol/L (3.5-5.1) Chloride Level 78 mmol/L (98-107) Carbon Dioxide Level 31 mmol/L (21-32) Anion Gap 23 (6-14) Blood Urea Nitrogen 61 mg/dL (8-26) Creatinine 3.6 mg/dL (0.7-1.3) Estimated GFR (Cockcroft-Gault) 25.1 BUN/Creatinine Ratio 17 (6-20) Glucose Level 777 mg/dL (70-99) Calcium Level 9.7 mg/dL (8.5-10.1) Total Bilirubin 1.7 mg/dL (0.2-1.0) Aspartate Amino Transf (AST/SGOT) 11 U/L (15-37) Alanine Aminotransferase (ALT/SGPT) 20 U/L (16-63) Alkaline Phosphatase 127 U/L (46-116) Creatine Kinase 44 U/L (39-308) 47 U/L (39-308) Total Protein 9.3 g/dL (6.4-8.2) Albumin 4.4 g/dL (3.4-5.0) Albumin/Globulin Ratio 0.9 (1.0-1.7) Lipase 94 U/L (73-393) Creatine Kinase MB (Mass) < 0.5 ng/mL (0.0-3.6) Creatine Kinase MB Relative Index % (0-4) Glucose (Fingerstick) 584 mg/dL (70-99) 469 mg/dL (70-99) Test 05/05/20 22:49 05/06/20 00:03 05/06/20 01:04 05/06/20 01:05 Glucose (Fingerstick) 341 mg/dL (70-99) 311 mg/dL (70-99) 201 mg/dL (70-99) White Blood Count 12.3 x10^3/uL (4.0-11.0) Red Blood Count 5.28 x10^6/uL (4.30-5.70) Hemoglobin 16.2 g/dL (13.0-17.5) Hematocrit 45.6 % (39.0-53.0) Mean Corpuscular Volume 86 fL (79-100) Mean Corpuscular Hemoglobin 31 pg (25-35) Mean Corpuscular Hemoglobin Concent 36 g/dL (31-37) Red Cell Distribution Width 13.6 % (11.5-14.5) Platelet Count 579 x10^3/uL (140-400) Neutrophils (%) (Auto) 75 % (31-73) Lymphocytes (%) (Auto) 18 % (24-48) Monocytes (%) (Auto) 7 % (0-9) Eosinophils (%) (Auto) 0 % (0-3) Basophils (%) (Auto) 1 % (0-3) Neutrophils # (Auto) 9.2 x10^3/uL (1.8-7.7) Lymphocytes # (Auto) 2.2 x10^3/uL (1.0-4.8) Monocytes # (Auto) 0.9 x10^3/uL (0.0-1.1) Eosinophils # (Auto) 0.0 x10^3/uL (0.0-0.7) Basophils # (Auto) 0.1 x10^3/uL (0.0-0.2) Sodium Level 143 mmol/L (136-145) Potassium Level 3.0 mmol/L (3.5-5.1) Chloride Level 95 mmol/L (98-107) Carbon Dioxide Level 39 mmol/L (21-32) Anion Gap 9 (6-14) Blood Urea Nitrogen 57 mg/dL (8-26) Creatinine 3.0 mg/dL (0.7-1.3) Estimated GFR (Cockcroft-Gault) 31.0 Glucose Level 275 mg/dL (70-99) Calcium Level 9.4 mg/dL (8.5-10.1) Phosphorus Level 3.4 mg/dL (2.6-4.7) Magnesium Level 2.9 mg/dL (1.8-2.4) Test 05/06/20 02:12 05/06/20 03:19 05/06/20 07:30 05/06/20 11:24 Glucose (Fingerstick) 233 mg/dL (70-99) 177 mg/dL (70-99) 322 mg/dL (70-99) 316 mg/dL (70-99) Laboratory Tests Test 05/05/20 17:43 05/05/20 18:35 05/05/20 20:30 05/05/20 21:37 White Blood Count 9.7 x10^3/uL (4.0-11.0) Red Blood Count 5.59 x10^6/uL (4.30-5.70) Hemoglobin 17.0 g/dL (13.0-17.5) Hematocrit 49.8 % (39.0-53.0) Mean Corpuscular Volume 89 fL (79-100) Mean Corpuscular Hemoglobin 30 pg (25-35) Mean Corpuscular Hemoglobin Concent 34 g/dL (31-37) Red Cell Distribution Width 13.8 % (11.5-14.5) Platelet Count 559 x10^3/uL (140-400) Neutrophils (%) (Auto) 75 % (31-73) Lymphocytes (%) (Auto) 16 % (24-48) Monocytes (%) (Auto) 9 % (0-9) Eosinophils (%) (Auto) 0 % (0-3) Basophils (%) (Auto) 0 % (0-3) Neutrophils # (Auto) 7.2 x10^3/uL (1.8-7.7) Lymphocytes # (Auto) 1.5 x10^3/uL (1.0-4.8) Monocytes # (Auto) 0.9 x10^3/uL (0.0-1.1) Eosinophils # (Auto) 0.0 x10^3/uL (0.0-0.7) Basophils # (Auto) 0.0 x10^3/uL (0.0-0.2) Sodium Level 132 mmol/L (136-145) Potassium Level 4.2 mmol/L (3.5-5.1) Chloride Level 78 mmol/L (98-107) Carbon Dioxide Level 31 mmol/L (21-32) Anion Gap 23 (6-14) Blood Urea Nitrogen 61 mg/dL (8-26) Creatinine 3.6 mg/dL (0.7-1.3) Estimated GFR (Cockcroft-Gault) 25.1 BUN/Creatinine Ratio 17 (6-20) Glucose Level 777 mg/dL (70-99) Calcium Level 9.7 mg/dL (8.5-10.1) Total Bilirubin 1.7 mg/dL (0.2-1.0) Aspartate Amino Transf (AST/SGOT) 11 U/L (15-37) Alanine Aminotransferase (ALT/SGPT) 20 U/L (16-63) Alkaline Phosphatase 127 U/L (46-116) Creatine Kinase 44 U/L (39-308) 47 U/L (39-308) Total Protein 9.3 g/dL (6.4-8.2) Albumin 4.4 g/dL (3.4-5.0) Albumin/Globulin Ratio 0.9 (1.0-1.7) Lipase 94 U/L (73-393) Creatine Kinase MB (Mass) < 0.5 ng/mL (0.0-3.6) Creatine Kinase MB Relative Index % (0-4) Glucose (Fingerstick) 584 mg/dL (70-99) 469 mg/dL (70-99) Test 05/05/20 22:49 05/06/20 00:03 05/06/20 01:04 05/06/20 01:05 Glucose (Fingerstick) 341 mg/dL (70-99) 311 mg/dL (70-99) 201 mg/dL (70-99) White Blood Count 12.3 x10^3/uL (4.0-11.0) Red Blood Count 5.28 x10^6/uL (4.30-5.70) Hemoglobin 16.2 g/dL (13.0-17.5) Hematocrit 45.6 % (39.0-53.0) Mean Corpuscular Volume 86 fL (79-100) Mean Corpuscular Hemoglobin 31 pg (25-35) Mean Corpuscular Hemoglobin Concent 36 g/dL (31-37) Red Cell Distribution Width 13.6 % (11.5-14.5) Platelet Count 579 x10^3/uL (140-400) Neutrophils (%) (Auto) 75 % (31-73) Lymphocytes (%) (Auto) 18 % (24-48) Monocytes (%) (Auto) 7 % (0-9) Eosinophils (%) (Auto) 0 % (0-3) Basophils (%) (Auto) 1 % (0-3) Neutrophils # (Auto) 9.2 x10^3/uL (1.8-7.7) Lymphocytes # (Auto) 2.2 x10^3/uL (1.0-4.8) Monocytes # (Auto) 0.9 x10^3/uL (0.0-1.1) Eosinophils # (Auto) 0.0 x10^3/uL (0.0-0.7) Basophils # (Auto) 0.1 x10^3/uL (0.0-0.2) Sodium Level 143 mmol/L (136-145) Potassium Level 3.0 mmol/L (3.5-5.1) Chloride Level 95 mmol/L (98-107) Carbon Dioxide Level 39 mmol/L (21-32) Anion Gap 9 (6-14) Blood Urea Nitrogen 57 mg/dL (8-26) Creatinine 3.0 mg/dL (0.7-1.3) Estimated GFR (Cockcroft-Gault) 31.0 Glucose Level 275 mg/dL (70-99) Calcium Level 9.4 mg/dL (8.5-10.1) Phosphorus Level 3.4 mg/dL (2.6-4.7) Magnesium Level 2.9 mg/dL (1.8-2.4) Test 05/06/20 02:12 05/06/20 03:19 05/06/20 07:30 05/06/20 11:24 Glucose (Fingerstick) 233 mg/dL (70-99) 177 mg/dL (70-99) 322 mg/dL (70-99) 316 mg/dL (70-99) Review All relevant outside records, renal labs, imaging studies, telemetry/EKG's were reviewed. Images Images Study: XR CHEST 1V Indication: Weakness. Comparison: 03/29/2020 Findings: Unremarkable cardiomediastinal silhouette and adilia. No focal airspace opacity, pleural effusion or pneumothorax. Impression: No acute radiographic abnormality of the chest. INDICATION: Reason: ABD PAIN AND VOMITING-CREAT 1.[address] WILSON / Spl. Instructions: OMNI 300 INJ 60 MLS / History: . COMPARISON: June 07, 2019 TECHNIQUE: Axial CT images obtained through the abdomen and pelvis without contrast. One or more of the following individualized dose reduction techniques were utilized for this examination: 1. Automated exposure control; 2. Adjustment of the mA and/or kV according to patient size; 3. Use of iterative reconstruction technique. FINDINGS: There is very little fat adjacent to the abdominal aorta and lack of contrast therefore limited assessment. No intrahepatic bile duct dilation. Poor evaluation of pancreas without contrast. The spleen is small in size. No left-sided hydronephrosis. Urinary bladder is partially distended. There are some calcifications within the pelvis bilaterally which could be secondary to phleboliths. No right-sided hydronephrosis. Moderate stool throughout the colon. The appendix is partially seen and not dilated in the visualized portion but limited assessment secondary to multiple collapsed loops of bowel within the region as well as lack of intra-abdominal fat which obscures a large portion of the appendix. No dilated loops of bowel to suggest obstruction. There is a suspected disc protrusion at L4-5. IMPRESSION: * No evidence of bowel obstruction. * No hydronephrosis. * Only a portion of the appendix is seen secondary to collapsed loops of bowel within the region but not dilated in the visualized portion. Electronically signed by: Marco A Atkinson MD (03/29/2020 3:27 PM) [id number] NEIL MEDINA MD May 06, 2020 13:25
--- NOTE | 2020-05-06 14:15 | NUR ---
PT ARRIVED VIA WHEELCHAIR FROM ICU WITH ARTIS MARSH. REPORT RECEIVED FROM ARTIS. PT IN BED CALL LIGHT WITHIN REACH. REQUESTING URINAL AND BLANKETS. DENIES PAIN OR NAUSEA. ORIENTED TO ROOM AND ROUTINES.
--- NOTE | 2020-05-06 15:26 | NUR ---
SS following for discharge planning. SS reviewed pt chart and discussed with pt RN. Pt is from home and is currently on room air. Pt admitted for DKA. Pt transferred to room 422. Valerie BEAVER, to follow.
--- NOTE | 2020-05-06 20:39 | NUR ---
pat refused lantus dose tonight, patient re educated about his blood sugar and insulin management.
[2020-05-06] MEDS: traZODone 100 MG TABLET. PO SCH (22:12)
[2020-05-07 03:00] VITALS: BP 112/64
[2020-05-07] MEDS: ONDANSETRON PF 4 MG/2 ML VIAL. IV PRN ×2 (06:53→22:41)
[2020-05-07 07:00] VITALS: BP 115/66
--- NOTE | 2020-05-07 07:49 | PDOC ---
[facility] [facility] PROGRESS NOTE Date of Service DOS: DATE: 05/07/20 TIME: 07:46 Chief Complaint Chief Complaint A/P: Intractable nausea and vomiting - likely gastroenteritis vs gastroparesis, NPO. States he is had nausea and vomiting since the DKA - Hyperglycemia, ACUTE Hypokalemia - Dehydrated Hyponatremia - 2/2 DKA, will hydrate Hyperbilirubinemia - constipated, will cont stool softeners Acute Renal insufficiency - vasomotor nephropathy, will hydrate NONCOMPLIANCE DUE TO LACK OF FUNDS THC ABUSE - counseled, may be contributing to vomiting Smoker - counseled on cessation Cataracts - s/p surgical correction DM1 - A1c is 15.5 this past 12/2018, repeat is 15.2 as of 04/2019, then 8.3 08/2019 FEN - NPO PPX - heparin FULL CODE Dispo - inpatient for at least 2 midnights. Placement may be necessary due to his continued poor self care. History of Present Illness History of Present Illness Mr. Molina is a 25-year-old male presenting with type 1 diabetes with abdominal pain nausea vomiting and DKA. He has many admits here, for about the same, He was recently was admitted for DKA and has many prior admits to the ICU. He has been trying to take his insulin. His pain is in his epigastrium radiates into his chest. It is mild to moderate. No alleviating or exacerbating factors. He denies fevers chills. He denies cough. Glucose is 777, CR 3.6 over chest radiograph with no acute findings. Gap closed overnight. Afebrile. Was refusing evening Lantus. Still vomiting continuously. He notes he ran out of reglan back in February 2020 from a previous prescription from October and has been struggling since then. Plan: IV reglan until he can take PO Vitals/I&O Vitals/I&O: Vital Signs Date Time Temp Pulse Resp B/P (MAP) Pulse Ox O2 Delivery O2 Flow Rate FiO2 05/07/20 07:33 Room Air 05/07/20 03:00 98.6 83 18 112/64 (80) 98 98.6 I & O 05/06/20 05/06/20 05/07/20 15:00 23:00 07:00 Intake Total 2050 ml 650 ml Output Total 2800 ml Balance -750 ml 650 ml Physical Exam Lungs: Clear Labs Labs: Laboratory Tests Test 05/06/20 11:24 05/06/20 16:29 05/06/20 19:46 Glucose (Fingerstick) 316 mg/dL (70-99) 165 mg/dL (70-99) 144 mg/dL (70-99) Comment Review of Relevant I have reviewed the following items grupo (where applicable) has been applied. Medications: Current Medications Medications (Trade) Dose Ordered Sig/Stephanie Route PRN Reason Start Time Stop Time Status Last Admin Dose Admin Insulin Human Lispro (HumaLOG) 18 units TIDWMEALS SQ 05/06/20 08:00 05/06/20 17:59 Insulin Human Lispro (HumaLOG) 0-5 UNITS TIDWMEALS SQ 05/06/20 08:00 05/06/20 11:29 Potassium Chloride (Klor-Con) 40 meq 1X ONCE PO 05/06/20 08:15 05/06/20 08:33 DC 05/06/20 08:39 Ondansetron HCl (Zofran) 8 mg PRN Q8HRS PRN IV NAUSEA/VOMITING 05/06/20 08:15 05/07/20 06:53 Sodium Chloride 1,000 ml @ 1,000 mls/hr 1X ONCE IV 05/06/20 08:30 05/06/20 09:29 DC 05/06/20 08:38 Sodium Chloride 1,000 ml @ 1,000 mls/hr 1X ONCE IV 05/06/20 13:30 05/06/20 14:29 DC 05/06/20 13:26 Trazodone HCl (Desyrel) 200 mg QHS PO 05/06/20 23:00 05/06/20 22:12 Justifications for Admission Other Justification severe hyperglycemia and NPO status PRASHANTH JAMES MD May 07, 2020 07:49
[2020-05-07] MEDS: POTASSIUM CHLORIDE 20 MEQ TABLET.ER. PO SCH (08:00)
[2020-05-07] MEDS: INSULIN LISPRO 300 UNITS/3 ML VIAL. SQ SCH ×6 (08:00→17:00)
--- NOTE | 2020-05-07 09:14 | PDOC ---
DATE OF SERVICE DATE: 05/07/20 TIME: 09:13 SUBJECTIVE ROS states not feeling very good, c/o nausea and vomiting . Doesn't give much info OBJECTIVE Vital Signs Vital Signs Date Time Temp Pulse Resp B/P (MAP) Pulse Ox O2 Delivery O2 Flow Rate FiO2 05/07/20 07:33 Room Air 05/07/20 07:00 98.7 81 16 115/66 (82) 96 98.7 I & 0 Intake and Output 05/07/20 07:00 Intake Total 2700 ml Output Total 2800 ml Balance -100 ml Intake Oral 1950 ml Other 750 ml Emesis 2800 ml PHYSICAL EXAM Physical Exam Gen NAD HEEN OM dry, anicteric Neck suple Lungs CTA , non labored CV RRR Abd Soft, BS + Ext No edema Skin No rash No dobson, No cva or SP tenderness Neuro AxO, grossly normal DIAGNOSIS/ASSESSMENT Assessment & Plan LJ - pre-renal 2/2 DKA , non Oliguric , improving , not back to baseline CT scan 03/2020 unremarkable kidneys and bladder per report , UA in Dec unremarkable except overt proteinuria Continue management of DKA per protocol , supportive care, Strict I/O ( bladder scan prn ) , avoid nephrotoxins Intractable nausea and vomiting DM1 - A1c 13<--15.2 on 04/2019 LJ during previous hospitalizations (? CKD) not seen by renal in the past DKA POA - improved, management per primary HypoKalemia- replace COMMENT/RELEVANT DATA Meds Current Medications Medications (Trade) Dose Ordered Sig/Stephanie Start Time Stop Time Status Last Admin Dose Admin Dextrose (Dextrose 50%-Water Syringe) 12.5 gm PRN Q15MIN PRN 05/06/20 02:00 Dextrose (Iv Dextrose 5%) 250 ml PRN Q15MIN PRN 05/06/20 02:00 Insulin Glargine (Lantus Syringe) 20 unit QHS 05/06/20 02:00 05/06/20 02:21 20 UNIT Insulin Human Lispro (HumaLOG) 0-5 UNITS TIDWMEALS 05/06/20 08:00 05/06/20 11:29 5 UNITS Insulin Human Regular 100 ml @ 0 mls/hr 1X ONCE 05/05/20 18:30 05/05/20 18:31 DC 05/05/20 19:32 14.3 MLS/HR Lorazepam (Ativan Inj) 1 mg PRN 1X PRN 05/06/20 22:15 Morphine Sulfate (Morphine Sulfate) 2 mg PRN Q2HR PRN 05/05/20 18:45 05/06/20 18:44 DC 05/06/20 02:10 2 MG Ondansetron HCl (Zofran) 8 mg PRN Q8HRS PRN 05/06/20 08:15 05/07/20 06:53 8 MG Potassium Chloride (Klor-Con) 20 meq DAILYWBKFT 05/06/20 08:30 Sodium Chloride 1,000 ml @ 1,000 mls/hr 1X ONCE 05/06/20 13:30 05/06/20 14:29 DC 05/06/20 13:26 1,000 MLS/HR Trazodone HCl (Desyrel) 200 mg QHS 05/06/20 23:00 05/06/20 22:12 200 MG Lab Laboratory Tests Test 05/06/20 11:24 05/06/20 16:29 05/06/20 19:46 05/07/20 07:46 Glucose (Fingerstick) 316 mg/dL (70-99) 165 mg/dL (70-99) 144 mg/dL (70-99) 316 mg/dL (70-99) Results All relevant outside records, renal labs, imaging studies, telemetry/EKG's were reviewed. Justicifation of Admission Dx: Justifications for Admission: Justification of Admission Dx: N/A DKA: NEIL MARTINEZ MD May 07, 2020 09:14
--- NOTE | 2020-05-07 09:31 | NUR ---
SW following. Discussed with RN, pt from home, room air, ada diet. Pt consistently non compliant with medications and diabetes. Pt will discharge home when medically stable. Pt vomiting today. SW will continue to follow.
[2020-05-07] MEDS ORDERED: POTASSIUM BICARB 20 MEQ EFFERVESCENT TABLET. PO ONE (10:30)
[2020-05-07] MEDS ORDERED: METOCLOPRAMIDE HCL 10 MG/2 ML VIAL. IVP ONE (10:30)
[2020-05-07 11:00] VITALS: BP 102/63
[2020-05-07 11:23] LABS: CALCIUM 9.5 mg/dL (8.5-10.1); CREATININE 2.4 mg/dL (0.7-1.3); GFR 40.1
[2020-05-07 11:25] LABS: POTASSIUM 2.9 mmol/L (3.5-5.1)
[2020-05-07] MEDS: POTASSIUM CHLORIDE 10MEQ 100 ML IV SCH ×2 (12:38→15:02)
[2020-05-07 15:00] VITALS: BP 122/66
[2020-05-07] MEDS: METOCLOPRAMIDE 10 MG TABLET. PO SCH ×2 (17:15→20:14)
[2020-05-07 19:00] VITALS: BP 121/77
[2020-05-07] MEDS: traZODone 100 MG TABLET. PO SCH (20:14)
[2020-05-07] MEDS: INSULIN GLARGINE SYRINGE. SQ SCH (21:13)
--- NOTE | 2020-05-07 22:06 | NUR ---
AFTER HS BLOOD SUGAR TAKEN 194 , PT REFUSED 20 UNITS OF HS, DR GERMAN NOTIFIED , PT REQUEST 10 UNITS, DR GERMAN AGREED WITH PATIENT" STATES GIVEN WHATEVER HE WANTS." PT CONTINUE TO REQUEST SODA AFTER COMPLAINING OF NAUSEA.WILL CONTINUE WITH CURRENT PLAN OF CARE.
[2020-05-07 22:45] VITALS: BP 117/67
[2020-05-08 06:57] LABS: CREATININE 2.3 mg/dL (0.7-1.3); GFR 42.1; POTASSIUM 3.2 mmol/L (3.5-5.1)
[2020-05-08 07:07] VITALS: BP 136/77
--- NOTE | 2020-05-08 07:56 | PDOC ---
[employer] [facility] PROGRESS NOTE Date of Service DOS: DATE: 05/08/20 TIME: 07:54 Chief Complaint Chief Complaint A/P: Intractable nausea and vomiting - likely gastroenteritis vs gastroparesis. States he is had nausea and vomiting since the Gastroparesis - diabetic, diagnosed 08/2019 with gastric emptying study, started on reglan at that time with improvement until he ran out of meds DKA - Hyperglycemia, ACUTE Hypokalemia - Dehydrated Hyponatremia - 2/2 DKA, will hydrate Hyperbilirubinemia - constipated, will cont stool softeners Acute Renal insufficiency - vasomotor nephropathy, will hydrate NONCOMPLIANCE DUE TO LACK OF FUNDS THC ABUSE - counseled, may be contributing to vomiting Smoker - counseled on cessation Cataracts - s/p surgical correction DM1 - A1c is 15.5 this past 12/2018, repeat is 15.2 as of 04/2019, then 8.3 08/2019 FEN - ADA PPX - heparin FULL CODE Dispo - inpatient for at least 2 midnights. Placement may be necessary due to his continued poor self care. History of Present Illness History of Present Illness Mr. Molina is a 25-year-old male presenting with type 1 diabetes with abdominal pain nausea vomiting and DKA. He has many admits here, for about the same, He was recently was admitted for DKA and has many prior admits to the ICU. He has been trying to take his insulin. His pain is in his epigastrium radiates into his chest. It is mild to moderate. No alleviating or exacerbating facto rs. He denies fevers chills. He denies cough. Glucose is 777, CR 3.6 over chest radiograph with no acute findings. 05/07: Gap closed overnight. Afebrile. Was refusing evening Lantus. Still vomiting continuously. He notes he ran out of reglan back in February 2020 from a previous prescription from October and has been struggling since then. Still vomiting overnight, not able to hold down PO reglan. Some epigastric pain, no blood in emesis. Plan: IV reglan until he can take PO Vitals/I&O Vitals/I&O: Vital Signs Date Time Temp Pulse Resp B/P (MAP) Pulse Ox O2 Delivery O2 Flow Rate FiO2 05/08/20 07:07 98.0 72 18 136/77 (96) 100 Room Air 98.0 I & O 05/07/20 05/07/20 05/08/20 15:00 23:00 07:00 Intake Total 980 ml Output Total 1200 ml Balance -220 ml Physical Exam General: Alert, Oriented X3, Cooperative, moderate distress Heart: Regular rate, Normal S1, Normal S2 Lungs: Clear Abdomen: Normal bowel sounds, Soft, Other (Epigastric tenderness) Extremities: No clubbing, No cyanosis Skin: No rashes, No breakdown Labs Labs: Laboratory Tests Test 05/07/20 09:43 05/07/20 11:49 05/07/20 16:50 05/07/20 20:28 Sodium Level 139 mmol/L (136-145) Potassium Level 2.9 mmol/L (3.5-5.1) Chloride Level 96 mmol/L (98-107) Carbon Dioxide Level 31 mmol/L (21-32) Anion Gap 12 (6-14) Blood Urea Nitrogen 45 mg/dL (8-26) Creatinine 2.4 mg/dL (0.7-1.3) Estimated GFR (Cockcroft-Gault) 40.1 Glucose Level 278 mg/dL (70-99) Calcium Level 9.5 mg/dL (8.5-10.1) Glucose (Fingerstick) 226 mg/dL (70-99) 94 mg/dL (70-99) 165 mg/dL (70-99) Test 05/08/20 06:27 05/08/20 07:00 Sodium Level 135 mmol/L (136-145) Potassium Level 3.2 mmol/L (3.5-5.1) Chloride Level 93 mmol/L (98-107) Carbon Dioxide Level 30 mmol/L (21-32) Anion Gap 12 (6-14) Blood Urea Nitrogen 37 mg/dL (8-26) Creatinine 2.3 mg/dL (0.7-1.3) Estimated GFR (Cockcroft-Gault) 42.1 Glucose Level 250 mg/dL (70-99) Calcium Level 10.0 mg/dL (8.5-10.1) Magnesium Level 2.0 mg/dL (1.8-2.4) Glucose (Fingerstick) 254 mg/dL (70-99) Comment Review of Relevant I have reviewed the following items grupo (where applicable) has been applied. Medications: Current Medications Medications (Trade) Dose Ordered Sig/Stephanie Route PRN Reason Start Time Stop Time Status Last Admin Dose Admin Potassium Bicarbonate (Potassium Effervescent Tablet) 40 meq DAILY ONCE PO 05/07/20 10:30 05/07/20 10:31 DC 05/07/20 10:44 Metoclopramide HCl (Reglan Vial) 10 mg 1X ONCE IVP 05/07/20 10:30 05/07/20 10:31 DC 05/07/20 10:44 Metoclopramide HCl (Reglan) 10 mg QIDACHS PO 05/07/20 16:30 05/07/20 20:14 Potassium Chloride/Water 100 ml @ 100 mls/hr Q1H IV 05/07/20 12:00 05/07/20 13:59 DC 05/07/20 15:02 Justifications for Admission Other Justification severe hyperglycemia and NPO status PRASHANTH JAMES MD May 08, 2020 07:56
[2020-05-08] MEDS ORDERED: METOCLOPRAMIDE HCL 10 MG/2 ML VIAL. IVP PRN (08:00)
[2020-05-08] MEDS ORDERED: POTASSIUM BICARB 20 MEQ EFFERVESCENT TABLET. PO ONE (08:30)
[2020-05-08] MEDS: METOCLOPRAMIDE 10 MG TABLET. PO SCH (09:00)
[2020-05-08] MEDS: INSULIN LISPRO 300 UNITS/3 ML VIAL. SQ SCH ×6 (09:07→17:42)
[2020-05-08] MEDS: POTASSIUM CHLORIDE 10MEQ 100 ML IV SCH ×2 (09:45→12:05)
--- NOTE | 2020-05-08 09:47 | NUR ---
SW following. Discussed with RN, pt from home, room air. Pt non compliant with home meds. RN advised no SW needs at this time. Possible discharge home in the next day or two. SW will continue to follow.
[2020-05-08] MEDS ORDERED: PANTOPRAZOLE IV PUSH 40 MG VIAL. IVP ONE (10:30)
[2020-05-08] MEDS ORDERED: MORPHINE SULFATE 2 MG/ML VIAL. IV PRN (10:30)
[2020-05-08 10:31] VITALS: BP 136/81
--- NOTE | 2020-05-08 10:43 | PDOC ---
DATE OF SERVICE DATE: 05/08/20 TIME: 10:41 SUBJECTIVE ROS still not feeling good, c/o nausea and vomiting , vomited earlier today OBJECTIVE Vital Signs Vital Signs Date Time Temp Pulse Resp B/P (MAP) Pulse Ox O2 Delivery O2 Flow Rate FiO2 05/08/20 10:31 98.1 97 18 136/81 (99) 100 Room Air 98.1 I & 0 Intake and Output 05/08/20 06:59 Intake Total 980 ml Output Total 1200 ml Balance -220 ml Intake Oral 980 ml Output Urine Total 400 ml Emesis 800 ml PHYSICAL EXAM Physical Exam Gen NAD HEEN OM dry, anicteric Neck suple Lungs CTA , non labored CV RRR Abd Soft, BS + Ext No edema Skin No rash No dobson, No cva or SP tenderness Neuro AxO, grossly normal DIAGNOSIS/ASSESSMENT Assessment & Plan LJ - pre-renal 2/2 DKA , non Oliguric , improving , not back to baseline CT scan 03/2020 unremarkable kidneys and bladder per report , UA in Dec unremarkable except overt proteinuria supportive care, Strict I/O ( bladder scan prn ) , avoid nephrotoxins Intractable nausea and vomiting - primary managing DM1 - A1c 13<--15.2 on 04/2019 LJ during previous hospitalizations (? CKD) not seen by renal in the past DKA POA - improved, management per primary HypoKalemia- replace COMMENT/RELEVANT DATA Meds Current Medications Medications (Trade) Dose Ordered Sig/Stephanie Start Time Stop Time Status Last Admin Dose Admin Dextrose (Dextrose 50%-Water Syringe) 12.5 gm PRN Q15MIN PRN 05/06/20 02:00 Dextrose (Iv Dextrose 5%) 250 ml PRN Q15MIN PRN 05/06/20 02:00 Insulin Glargine (Lantus Syringe) 20 unit QHS 05/06/20 02:00 05/07/20 21:13 10 UNIT Insulin Human Lispro (HumaLOG) 0-5 UNITS TIDWMEALS 05/06/20 08:00 05/08/20 09:16 4 UNITS Insulin Human Regular 100 ml @ 0 mls/hr 1X ONCE 05/05/20 18:30 05/05/20 18:31 DC 05/05/20 19:32 14.3 MLS/HR Lorazepam (Ativan Inj) 1 mg PRN 1X PRN 05/06/20 22:15 Metoclopramide HCl (Reglan Vial) 10 mg PRN QID PRN 05/08/20 10:30 Metoclopramide HCl (Reglan) 10 mg QIDACHS 05/07/20 16:30 05/08/20 10:29 DC 05/08/20 09:00 10 MG Morphine Sulfate (Morphine Sulfate) 2 mg PRN Q2HR PRN 05/08/20 10:30 Ondansetron HCl (Zofran) 8 mg PRN Q8HRS PRN 05/06/20 08:15 05/07/20 22:41 8 MG Pantoprazole Sodium (PROTONIX VIAL for IV PUSH) 40 mg 1X ONCE 05/08/20 10:30 05/08/20 10:31 DC Potassium Bicarbonate (Potassium Effervescent Tablet) 40 meq 1X ONCE 05/08/20 08:30 05/08/20 08:31 DC 05/08/20 09:01 40 MEQ Potassium Chloride/Water 100 ml @ 100 mls/hr Q1H 05/08/20 09:00 05/08/20 10:59 05/08/20 09:45 100 MLS/HR Potassium Chloride (Klor-Con) 20 meq DAILYWBKFT 05/06/20 08:30 05/07/20 09:40 DC Sodium Chloride 1,000 ml @ 1,000 mls/hr 1X ONCE 05/06/20 13:30 05/06/20 14:29 DC 05/06/20 13:26 1,000 MLS/HR Trazodone HCl (Desyrel) 200 mg QHS 05/06/20 23:00 05/07/20 20:14 200 MG Lab Laboratory Tests Test 05/07/20 11:49 05/07/20 16:50 05/07/20 20:28 05/08/20 06:27 Glucose (Fingerstick) 226 mg/dL (70-99) 94 mg/dL (70-99) 165 mg/dL (70-99) Sodium Level 135 mmol/L (136-145) Potassium Level 3.2 mmol/L (3.5-5.1) Chloride Level 93 mmol/L (98-107) Carbon Dioxide Level 30 mmol/L (21-32) Anion Gap 12 (6-14) Blood Urea Nitrogen 37 mg/dL (8-26) Creatinine 2.3 mg/dL (0.7-1.3) Estimated GFR (Cockcroft-Gault) 42.1 Glucose Level 250 mg/dL (70-99) Calcium Level 10.0 mg/dL (8.5-10.1) Magnesium Level 2.0 mg/dL (1.8-2.4) Test 05/08/20 07:00 Glucose (Fingerstick) 254 mg/dL (70-99) Results All relevant outside records, renal labs, imaging studies, telemetry/EKG's were reviewed. Justicifation of Admission Dx: Justifications for Admission: Justification of Admission Dx: N/A DKA: NEIL MARTINEZ MD May 08, 2020 10:43
[2020-05-08] MEDS: METOCLOPRAMIDE HCL 10 MG/2 ML VIAL. IVP PRN ×2 (12:54→21:03)
[2020-05-08 14:27] VITALS: BP 139/80
[2020-05-08] MEDS: ONDANSETRON PF 4 MG/2 ML VIAL. IV PRN (17:34)
[2020-05-08 19:00] VITALS: BP 131/91
[2020-05-08] MEDS: INSULIN GLARGINE SYRINGE. SQ SCH (21:00)
[2020-05-08] MEDS: traZODone 100 MG TABLET. PO SCH (21:03)
[2020-05-08 23:00] VITALS: BP 131/77
[2020-05-09 03:00] VITALS: BP 132/89
[2020-05-09] MEDS: ONDANSETRON PF 4 MG/2 ML VIAL. IV PRN ×2 (06:07→20:48)
[2020-05-09 07:00] VITALS: BP 118/82
--- NOTE | 2020-05-09 07:46 | PDOC ---
[employer] PROGRESS NOTE Date of Service DOS: DATE: 05/09/20 TIME: 07:45 Chief Complaint Chief Complaint A/P: Intractable nausea and vomiting - likely gastroenteritis vs gastroparesis. States he is had nausea and vomiting since the Gastroparesis - diabetic, diagnosed 08/2019 with gastric emptying study, started on reglan at that time with improvement until he ran out of meds DKA - Hyperglycemia, ACUTE Hypokalemia - Dehydrated Hyponatremia - 2/2 DKA, will hydrate Hyperbilirubinemia - constipated, will cont stool softeners Acute Renal insufficiency - vasomotor nephropathy, will hydrate NONCOMPLIANCE DUE TO LACK OF FUNDS THC ABUSE - counseled, may be contributing to vomiting Smoker - counseled on cessation Cataracts - s/p surgical correction DM1 - A1c is 15.5 this past 12/2018, repeat is 15.2 as of 04/2019, then 8.3 08/2019 FEN - ADA PPX - heparin FULL CODE Dispo - inpatient for at least 2 midnights. Placement may be necessary due to his continued poor self care. History of Present Illness History of Present Illness Mr. Molina is a 25-year-old male presenting with type 1 diabetes with abdominal pain nausea vomiting and DKA. He has many admits here, for about the same, He was recently was admitted for DKA and has many prior admits to the ICU. He has been trying to take his insulin. His pain is in his epigastrium radiates into his chest. It is mild to moderate. No alleviating or exacerbating facto rs. He denies fevers chills. He denies cough. Glucose is 777, CR 3.6 over chest radiograph with no acute findings. 05/07: Gap closed overnight. Afebrile. Was refusing evening Lantus. Still vomiting continuously. He notes he ran out of reglan back in February 2020 from a previous prescription from October and has been struggling since then. 05/08: Still vomiting overnight, not able to hold down PO reglan. Some epigastric pain, no blood in emesis. Converted to IV reglan. Glucose 61 after evening meal insulin Despite scheduled IV Reglan he is still vomiting. Bilious vomiting less now. Asked decreases p.o. intake wall waiting for his Reglan to begin working again. No chest pain or shortness of breath. Epigastric pain improved with PPI. Plan: IV reglan until he can take PO Vitals/I&O Vitals/I&O: Vital Signs Date Time Temp Pulse Resp B/P (MAP) Pulse Ox O2 Delivery O2 Flow Rate FiO2 05/09/20 03:00 97.7 67 18 132/89 (103) 100 Room Air 97.7 I & O 05/08/20 05/08/20 05/09/20 15:00 23:00 07:00 Intake Total 360 ml Output Total 350 ml Balance 10 ml Physical Exam General: Alert, Oriented X3, Cooperative, moderate distress Heart: Regular rate, Normal S1, Normal S2 Lungs: Clear Abdomen: Normal bowel sounds, Soft, Other (Epigastric tenderness) Extremities: No clubbing, No cyanosis Skin: No rashes, No breakdown Labs Labs: Laboratory Tests Test 05/08/20 11:04 05/08/20 15:59 05/08/20 20:29 05/08/20 20:46 Glucose (Fingerstick) 231 mg/dL (70-99) 156 mg/dL (70-99) 61 mg/dL (70-99) 87 mg/dL (70-99) Test 05/09/20 07:12 Glucose (Fingerstick) 256 mg/dL (70-99) Comment Review of Relevant I have reviewed the following items grupo (where applicable) has been applied. Medications: Current Medications Medications (Trade) Dose Ordered Sig/Stephanie Route PRN Reason Start Time Stop Time Status Last Admin Dose Admin Potassium Bicarbonate (Potassium Effervescent Tablet) 40 meq 1X ONCE PO 05/08/20 08:30 05/08/20 08:31 DC 05/08/20 09:01 Potassium Chloride/Water 100 ml @ 100 mls/hr Q1H IV 05/08/20 09:00 05/08/20 10:59 DC 05/08/20 12:05 Metoclopramide HCl (Reglan Vial) 10 mg PRN QID PRN IVP NAUSEA/VOMITING 2ND CHOICE 05/08/20 10:30 05/08/20 21:03 Pantoprazole Sodium (PROTONIX VIAL for IV PUSH) 40 mg 1X ONCE IVP 05/08/20 10:30 05/08/20 10:31 DC 05/08/20 11:00 Justifications for Admission Other Justification severe hyperglycemia and NPO status PRASHANTH JAMES MD May 09, 2020 07:46
--- NOTE | 2020-05-09 09:31 | NUR ---
SW following. Discussed with RN, pt from home, room air, ada diet. Some discussion about putting pt as NPO due to vomiting. Pt still needing IV Reglan. SW will continue to follow.
[2020-05-09] MEDS: METOCLOPRAMIDE HCL 10 MG/2 ML VIAL. IVP PRN ×2 (10:02→17:01)
[2020-05-09] MEDS: INSULIN LISPRO 300 UNITS/3 ML VIAL. SQ SCH ×6 (10:14→17:09)
--- NOTE | 2020-05-09 10:29 | PDOC ---
DATE OF SERVICE DATE: 05/09/20 TIME: 10:27 SUBJECTIVE ROS c/o vomiting OBJECTIVE Vital Signs Vital Signs Date Time Temp Pulse Resp B/P (MAP) Pulse Ox O2 Delivery O2 Flow Rate FiO2 05/09/20 07:00 98.0 76 18 118/82 (94) 100 Room Air 98.0 I & 0 Intake and Output 05/09/20 07:00 Intake Total 360 ml Output Total 350 ml Balance 10 ml Intake Oral 360 ml Output Urine Total 350 ml PHYSICAL EXAM Physical Exam Gen NAD HEEN OM dry, anicteric Neck suple Lungs CTA , non labored CV RRR Abd Soft, BS + Ext No edema Skin No rash No dobson, No cva or SP tenderness Neuro AxO, grossly normal DIAGNOSIS/ASSESSMENT Assessment & Plan LJ - pre-renal 2/2 DKA , non Oliguric , improving , not back to baseline . Labs pending this am (he refused earlier today ) CT scan 03/2020 unremarkable kidneys and bladder per report , UA in Dec unremarkable except overt proteinuria supportive care, Strict I/O ( bladder scan prn ) , avoid nephrotoxins Intractable nausea and vomiting - primary managing DM1 - A1c 13<--15.2 on 04/2019 LJ during previous hospitalizations (? CKD) not seen by renal in the past DKA POA - improved, management per primary HypoKalemia- replace COMMENT/RELEVANT DATA Meds Current Medications Medications (Trade) Dose Ordered Sig/Stephanie Start Time Stop Time Status Last Admin Dose Admin Dextrose (Dextrose 50%-Water Syringe) 12.5 gm PRN Q15MIN PRN 05/06/20 02:00 Dextrose (Iv Dextrose 5%) 250 ml PRN Q15MIN PRN 05/06/20 02:00 Insulin Glargine (Lantus Syringe) 20 unit QHS 05/06/20 02:00 05/07/20 21:13 10 UNIT Insulin Human Lispro (HumaLOG) 12 units TIDWMEALS 05/09/20 08:00 05/09/20 10:14 12 UNITS Insulin Human Regular 100 ml @ 0 mls/hr 1X ONCE 05/05/20 18:30 05/05/20 18:31 DC 05/05/20 19:32 14.3 MLS/HR Lorazepam (Ativan Inj) 1 mg PRN 1X PRN 05/06/20 22:15 Metoclopramide HCl (Reglan Vial) 10 mg PRN QID PRN 05/08/20 10:30 05/09/20 10:02 10 MG Metoclopramide HCl (Reglan) 10 mg QIDACHS 05/07/20 16:30 05/08/20 10:29 DC 05/08/20 09:00 10 MG Morphine Sulfate (Morphine Sulfate) 2 mg PRN Q2HR PRN 05/08/20 10:30 Ondansetron HCl (Zofran) 8 mg PRN Q8HRS PRN 05/06/20 08:15 05/09/20 06:07 8 MG Pantoprazole Sodium (PROTONIX VIAL for IV PUSH) 40 mg 1X ONCE 05/08/20 10:30 05/08/20 10:31 DC 05/08/20 11:00 40 MG Potassium Bicarbonate (Potassium Effervescent Tablet) 40 meq 1X ONCE 05/08/20 08:30 05/08/20 08:31 DC 05/08/20 09:01 40 MEQ Potassium Chloride/Water 100 ml @ 100 mls/hr Q1H 05/08/20 09:00 05/08/20 10:59 DC 05/08/20 12:05 100 MLS/HR Potassium Chloride (Klor-Con) 20 meq [id number] 05/06/20 08:30 05/07/20 09:40 DC Sodium Chloride 1,000 ml @ 1,000 mls/hr 1X ONCE 05/06/20 13:30 05/06/20 14:29 DC 05/06/20 13:26 1,000 MLS/HR Trazodone HCl (Desyrel) 200 mg QHS 05/06/20 23:00 05/08/20 21:03 200 MG Lab Laboratory Tests Test 05/08/20 11:04 05/08/20 15:59 05/08/20 20:29 05/08/20 20:46 Glucose (Fingerstick) 231 mg/dL (70-99) 156 mg/dL (70-99) 61 mg/dL (70-99) 87 mg/dL (70-99) Test 05/09/20 07:12 Glucose (Fingerstick) 256 mg/dL (70-99) Results All relevant outside records, renal labs, imaging studies, telemetry/EKG's were reviewed. Justicifation of Admission Dx: Justifications for Admission: Justification of Admission Dx: N/A DKA: NEIL MARTINEZ MD May 09, 2020 10:29
[2020-05-09 11:00] VITALS: BP 126/72
[2020-05-09 11:57] LABS: CALCIUM 9.1 mg/dL (8.5-10.1); CREATININE 2.2 mg/dL (0.7-1.3); GFR 44.3; POTASSIUM 3.3 mmol/L (3.5-5.1)
[2020-05-09 15:00] VITALS: BP 118/79
[2020-05-09 19:00] VITALS: BP 122/81
[2020-05-09] MEDS: traZODone 100 MG TABLET. PO SCH (20:49)
[2020-05-09] MEDS: INSULIN GLARGINE SYRINGE. SQ SCH (21:03)
[2020-05-09 23:00] VITALS: BP 107/59
[2020-05-10 03:02] VITALS: BP 118/70
--- NOTE | 2020-05-10 06:17 | NUR ---
Pt. would like to speak to case management about affording his medications.
[2020-05-10 07:00] VITALS: BP 127/81
--- NOTE | 2020-05-10 08:28 | NUR ---
Awaken c/o nausea but asking about breakfast that he ordered. Zofran IV given and diet lemon tazlina soda. Cont. monitor.
[2020-05-10] MEDS: ONDANSETRON PF 4 MG/2 ML VIAL. IV PRN (08:30)
[2020-05-10] MEDS: INSULIN LISPRO 300 UNITS/3 ML VIAL. SQ SCH ×6 (09:19→17:03)
--- NOTE | 2020-05-10 10:14 | PDOC ---
[employer] PROGRESS NOTE Date of Service DOS: DATE: 05/10/20 TIME: 10:17 Chief Complaint Chief Complaint A/P: Intractable nausea and vomiting - likely gastroenteritis vs gastroparesis. States he is had nausea and vomiting since the . Has known gastroparesis diagnosed 08/2019 on GES Gastroparesis - diabetic, diagnosed 08/2019 with gastric emptying study, started on reglan at that time with improvement until he ran out of meds DKA - Hyperglycemia, ACUTE Hypokalemia - Dehydrated Hyponatremia - 2/2 DKA, will hydrate Hyperbilirubinemia - constipated, will cont stool softeners Acute Renal insufficiency - vasomotor nephropathy, will hydrate NONCOMPLIANCE DUE TO LACK OF FUNDS THC ABUSE - counseled, may be contributing to vomiting Smoker - counseled on cessation Cataracts - s/p surgical correction DM1 - A1c is 15.5 this past 12/2018, repeat is 15.2 as of 04/2019, then 8.3 08/2019 FEN - ADA PPX - heparin FULL CODE Dispo - inpatient for at least 2 midnights. Placement may be necessary due to his continued poor self care. History of Present Illness History of Present Illness Mr. oMlina is a 25-year-old male presenting with type 1 diabetes with abdominal pain nausea vomiting and DKA. He has many admits here, for about the same, He was recently was admitted for DKA and has many prior admits to the ICU. He has been trying to take his insulin. His pain is in his epigastrium radiates into his chest. It is mild to moderate. No alleviating or exacerbating factors. He denies fevers chills. He denies cough. Glucose is 777, CR 3.6 over chest radiograph with no acute findings. 05/07: Gap closed overnight. Afebrile. Was refusing evening Lantus. Still vomiting continuously. He notes he ran out of reglan back in February 2020 from a previous prescription from October and has been struggling since then. 05/08: Still vomiting overnight, not able to hold down PO reglan. Some epigastric pain, no blood in emesis. Converted to IV reglan. Glucose 61 after evening meal insulin 05/09: Despite scheduled IV Reglan he is still vomiting. Bilious vomiting less n ow. Asked decreases p.o. intake wall waiting for his Reglan to begin working again. No chest pain or shortness of breath. Epigastric pain improved with PPI. Still dry heaving. Less emesis. Glucose well controlled. Pain better controlled. no SOB or CP Plan: IV reglan until he can take PO Vitals/I&O Vitals/I&O: Vital Signs Date Time Temp Pulse Resp B/P (MAP) Pulse Ox O2 Delivery O2 Flow Rate FiO2 05/10/20 08:28 Room Air 05/10/20 07:00 97.7 85 18 127/81 (96) 100 97.7 I & O 05/09/20 05/09/20 05/10/20 14:55 22:55 06:55 Intake Total 240 ml 800 ml Output Total 150 ml Balance 90 ml 800 ml Physical Exam General: Alert, Oriented X3, Cooperative, moderate distress Heart: Regular rate, Normal S1, Normal S2 Lungs: Clear Abdomen: Normal bowel sounds, Soft, Other (Epigastric tenderness) Extremities: No clubbing, No cyanosis Skin: No rashes, No breakdown Labs Labs: Laboratory Tests Test 05/09/20 11:30 05/09/20 11:41 05/09/20 16:44 05/09/20 20:30 Sodium Level 135 mmol/L (136-145) Potassium Level 3.3 mmol/L (3.5-5.1) Chloride Level 96 mmol/L (98-107) Carbon Dioxide Level 29 mmol/L (21-32) Anion Gap 10 (6-14) Blood Urea Nitrogen 27 mg/dL (8-26) Creatinine 2.2 mg/dL (0.7-1.3) Estimated GFR (Cockcroft-Gault) 44.3 Glucose Level 358 mg/dL (70-99) Calcium Level 9.1 mg/dL (8.5-10.1) Glucose (Fingerstick) 292 mg/dL (70-99) 240 mg/dL (70-99) 273 mg/dL (70-99) Test 05/10/20 07:50 Glucose (Fingerstick) 225 mg/dL (70-99) Comment Review of Relevant I have reviewed the following items grupo (where applicable) has been applied. Justifications for Admission Other Justification severe hyperglycemia and NPO status PRASHANTH JAMES MD May 10, 2020 10:14
--- NOTE | 2020-05-10 10:36 | NUR ---
SW following. Discussed with RN, pt from home, room air, ada diet. Requested to see SW regarding not being able to afford his medications. SW met with pt (no isolation precautions at the time). SW explained to pt that he has medicaid and medications are covered. SW recommended pt contact Medicaid to see if they have a delivery option if collecting his medications are a problem. Pt denied any further SW needs. SW will continue to follow.
[2020-05-10 11:00] VITALS: BP 114/72
[2020-05-10] MEDS: METOCLOPRAMIDE HCL 10 MG/2 ML VIAL. IVP SCH ×4 (11:19→21:04)
--- NOTE | 2020-05-10 12:00 | NUR ---
Pt refused to eat lunch. Meal dose of insulin not given. FSBS 127. Cont. monitor.
--- NOTE | 2020-05-10 13:14 | PDOC ---
DATE OF SERVICE DATE: 05/10/20 TIME: 13:11 SUBJECTIVE ROS c/o dry heaves, OBJECTIVE Vital Signs Vital Signs Date Time Temp Pulse Resp B/P (MAP) Pulse Ox O2 Delivery O2 Flow Rate FiO2 05/10/20 11:00 98.1 86 18 114/72 (86) 100 Room Air 98.1 I & 0 Intake and Output 05/10/20 07:00 Intake Total 1040 ml Output Total 150 ml Balance 890 ml Intake Oral 1040 ml Emesis 150 ml # Voids 3 PHYSICAL EXAM Physical Exam Gen NAD HEEN OM dry, anicteric Neck suple Lungs CTA , non labored CV RRR Abd Soft, BS + Ext No edema Skin No rash No dobson, No cva or SP tenderness Neuro AxO, grossly normal DIAGNOSIS/ASSESSMENT Assessment & Plan LJ - pre-renal 2/2 DKA , non Oliguric , improving (05/09 labs ) CT scan 03/2020 unremarkable kidneys and bladder per report , UA in Dec unremarkable except overt proteinuria supportive care, avoid nephrotoxins Intractable nausea and vomiting - primary managing DM1 - A1c 13<--15.2 on 04/2019 LJ during previous hospitalizations (? CKD) not seen by renal in the past DKA POA - improved, management per primary HypoKalemia- replace COMMENT/RELEVANT DATA Meds Current Medications Medications (Trade) Dose Ordered Sig/Stephanie Start Time Stop Time Status Last Admin Dose Admin Dextrose (Dextrose 50%-Water Syringe) 12.5 gm PRN Q15MIN PRN 05/06/20 02:00 Dextrose (Iv Dextrose 5%) 250 ml PRN Q15MIN PRN 05/06/20 02:00 Insulin Glargine (Lantus Syringe) 20 unit QHS 05/06/20 02:00 05/09/20 21:03 20 UNIT Insulin Human Lispro (HumaLOG) 12 units TIDWMEALS 05/09/20 08:00 05/10/20 09:19 12 UNITS Insulin Human Regular 100 ml @ 0 mls/hr 1X ONCE 05/05/20 18:30 05/05/20 18:31 DC 05/05/20 19:32 14.3 MLS/HR Lorazepam (Ativan Inj) 1 mg PRN 1X PRN 05/06/20 22:15 Metoclopramide HCl (Reglan Vial) 10 mg QID 05/10/20 10:15 05/10/20 11:19 10 MG Metoclopramide HCl (Reglan) 10 mg QIDACHS 05/07/20 16:30 05/08/20 10:29 DC 05/08/20 09:00 10 MG Morphine Sulfate (Morphine Sulfate) 2 mg PRN Q2HR PRN 05/08/20 10:30 Ondansetron HCl (Zofran) 8 mg PRN Q8HRS PRN 05/06/20 08:15 05/10/20 08:30 8 MG Pantoprazole Sodium (PROTONIX VIAL for IV PUSH) 40 mg 1X ONCE 05/08/20 10:30 05/08/20 10:31 DC 05/08/20 11:00 40 MG Potassium Bicarbonate (Potassium Effervescent Tablet) 40 meq 1X ONCE 05/08/20 08:30 05/08/20 08:31 DC 05/08/20 09:01 40 MEQ Potassium Chloride/Water 100 ml @ 100 mls/hr Q1H 05/08/20 09:00 05/08/20 10:59 DC 05/08/20 12:05 100 MLS/HR Potassium Chloride (Klor-Con) 20 meq DAILYWBKFT 05/06/20 08:30 05/07/20 09:40 DC Sodium Chloride 1,000 ml @ 1,000 mls/hr 1X ONCE 05/06/20 13:30 05/06/20 14:29 DC 05/06/20 13:26 1,000 MLS/HR Trazodone HCl (Desyrel) 200 mg QHS 05/06/20 23:00 05/09/20 20:49 200 MG Lab Laboratory Tests Test 05/09/20 16:44 05/09/20 20:30 05/10/20 07:50 05/10/20 11:44 Glucose (Fingerstick) 240 mg/dL (70-99) 273 mg/dL (70-99) 225 mg/dL (70-99) 127 mg/dL (70-99) Results All relevant outside records, renal labs, imaging studies, telemetry/EKG's were reviewed. Justicifation of Admission Dx: Justifications for Admission: Justification of Admission Dx: N/A DKA: NEIL MARTINEZ MD May 10, 2020 13:14
--- NOTE | 2020-05-10 14:00 | NUR ---
Encourage pt not to drink or eat anything until medicine takes affect. Constantly drinking water or tea and 5 minutes or less vomits. Pt repeats this over and over. Did not eat breakfast nor lunch today. Always requesting soda and water. Cont. monitor.
--- NOTE | 2020-05-10 17:00 | NUR ---
Did not eat dinner. Held meal dose of insulin.
[2020-05-10 19:00] VITALS: BP 139/89
[2020-05-10] MEDS: INSULIN GLARGINE SYRINGE. SQ SCH (21:10)
[2020-05-10] MEDS: traZODone 100 MG TABLET. PO SCH (22:15)
[2020-05-10 22:50] VITALS: BP 114/77
[2020-05-11 03:00] VITALS: BP 117/66
[2020-05-11 07:00] VITALS: BP 132/85
[2020-05-11] MEDS: INSULIN LISPRO 300 UNITS/3 ML VIAL. SQ SCH ×6 (07:45→17:03)
[2020-05-11] MEDS: METOCLOPRAMIDE HCL 10 MG/2 ML VIAL. IVP SCH ×4 (08:06→21:15)
--- NOTE | 2020-05-11 08:19 | PDOC ---
[employer] PROGRESS NOTE Date of Service DOS: DATE: 05/11/20 TIME: 08:19 Chief Complaint Chief Complaint A/P: Intractable nausea and vomiting - likely gastroenteritis vs gastroparesis. States he is had nausea and vomiting since the . Has known gastroparesis diagnosed 08/2019 on GES Gastroparesis - diabetic, diagnosed 08/2019 with gastric emptying study, started on reglan at that time with improvement until he ran out of meds DKA - Hyperglycemia, ACUTE Hypokalemia - Dehydrated Hyponatremia - 2/2 DKA, will hydrate Hyperbilirubinemia - constipated, will cont stool softeners Acute Renal insufficiency - vasomotor nephropathy, will hydrate NONCOMPLIANCE DUE TO LACK OF FUNDS THC ABUSE - counseled, may be contributing to vomiting Smoker - counseled on cessation Cataracts - s/p surgical correction DM1 - A1c is 15.5 this past 12/2018, repeat is 15.2 as of 04/2019, then 8.3 08/2019 FEN - ADA PPX - heparin FULL CODE Dispo - inpatient for at least 2 midnights. Placement may be necessary due to his continued poor self care. History of Present Illness History of Present Illness Mr. Molina is a 25-year-old male presenting with type 1 diabetes with abdominal pain nausea vomiting and DKA. He has many admits here, for about the same, He was recently was admitted for DKA and has many prior admits to the ICU. He has been trying to take his insulin. His pain is in his epigastrium radiates into his chest. It is mild to moderate. No alleviating or exacerbating factors. He denies fevers chills. He denies cough. Glucose is 777, CR 3.6 over chest radiograph with no acute findings. 05/07: Gap closed overnight. Afebrile. Was refusing evening Lantus. Still vomiting continuously. He notes he ran out of reglan back in February 2020 from a previous prescription from October and has been struggling since then. 05/08: Still vomiting overnight, not able to hold down PO reglan. Some epigastric pain, no blood in emesis. Converted to IV reglan. Glucose 61 after evening meal insulin 05/09: Despite scheduled IV Reglan he is still vomiting. Bilious vomiting less n ow. Asked decreases p.o. intake wall waiting for his Reglan to begin working again. No chest pain or shortness of breath. Epigastric pain improved with PPI. 05/10: Still dry heaving. Less emesis. Glucose well controlled. Pain better controlled. no SOB or CP Nausea not well controlled, did not eat breakfast. Glucose well controlled. Pain better controlled. No SOB or CP. Wants to try eating lunch Plan: IV reglan until he can take PO Vitals/I&O Vitals/I&O: Vital Signs Date Time Temp Pulse Resp B/P (MAP) Pulse Ox O2 Delivery O2 Flow Rate FiO2 05/11/20 07:13 Room Air 05/11/20 07:00 98.1 99 20 132/85 (101) 100 98.1 I & O 05/10/20 05/10/20 05/11/20 15:00 23:00 07:00 Intake Total 100 ml Output Total 625 ml Balance -525 ml Physical Exam General: Alert, Oriented X3, Cooperative, moderate distress Heart: Regular rate, Normal S1, Normal S2 Lungs: Clear Abdomen: Normal bowel sounds, Soft, Other (Epigastric tenderness) Extremities: No clubbing, No cyanosis Skin: No rashes, No breakdown Labs Labs: Laboratory Tests Test 05/10/20 11:44 05/10/20 16:59 05/10/20 21:02 05/11/20 07:39 Glucose (Fingerstick) 127 mg/dL (70-99) 172 mg/dL (70-99) 142 mg/dL (70-99) 103 mg/dL (70-99) Comment Review of Relevant I have reviewed the following items grupo (where applicable) has been applied. Medications: Current Medications Medications (Trade) Dose Ordered Sig/Stephanie Route PRN Reason Start Time Stop Time Status Last Admin Dose Admin Metoclopramide HCl (Reglan Vial) 10 mg QID IVP 05/10/20 10:15 05/11/20 08:06 Justifications for Admission Other Justification severe hyperglycemia and NPO status PRASHANTH JAMES MD May 11, 2020 08:19
[2020-05-11 10:30] LABS: ALBUMIN 3.3 g/dL (3.4-5.0); CALCIUM 9.3 mg/dL (8.5-10.1); CREATININE 1.8 mg/dL (0.7-1.3); GFR 55.9; POTASSIUM 3.5 mmol/L (3.5-5.1)
[2020-05-11 11:00] VITALS: BP 136/89
--- NOTE | 2020-05-11 14:03 | PDOC ---
PROGRESS NOTES Date of Service DATE: 05/11/20 TIME: 14:03 Subjective Subjective Labs reviewed, creatinine continues to improve. Urine output is adequate. We will follow-up on Wednesday Objective Objective Vital Signs Date Time Temp Pulse Resp B/P (MAP) Pulse Ox O2 Delivery O2 Flow Rate FiO2 05/11/20 11:00 98.1 102 20 136/89 (105) 99 Room Air 98.1 Intake and Output 05/11/20 07:00 Intake Total 100 ml Output Total 625 ml Balance -525 ml Intake Oral 100 ml Emesis 625 ml # Voids 1 Comment Review of Relevant I have reviewed the following items grupo (where applicable) has been applied. Labs Laboratory Tests Test 05/09/20 16:44 05/09/20 20:30 05/10/20 07:50 05/10/20 11:44 Glucose (Fingerstick) 240 mg/dL (70-99) 273 mg/dL (70-99) 225 mg/dL (70-99) 127 mg/dL (70-99) Test 05/10/20 16:59 05/10/20 21:02 05/11/20 07:39 05/11/20 08:35 Glucose (Fingerstick) 172 mg/dL (70-99) 142 mg/dL (70-99) 103 mg/dL (70-99) Sodium Level 138 mmol/L (136-145) Potassium Level 3.5 mmol/L (3.5-5.1) Chloride Level 100 mmol/L (98-107) Carbon Dioxide Level 29 mmol/L (21-32) Anion Gap 9 (6-14) Blood Urea Nitrogen 19 mg/dL (8-26) Creatinine 1.8 mg/dL (0.7-1.3) Estimated GFR (Cockcroft-Gault) 55.9 Glucose Level 128 mg/dL (70-99) Calcium Level 9.3 mg/dL (8.5-10.1) Phosphorus Level 3.0 mg/dL (2.6-4.7) Albumin 3.3 g/dL (3.4-5.0) Test 05/11/20 11:31 Glucose (Fingerstick) 172 mg/dL (70-99) Laboratory Tests Test 05/10/20 16:59 05/10/20 21:02 05/11/20 07:39 05/11/20 08:35 Glucose (Fingerstick) 172 mg/dL (70-99) 142 mg/dL (70-99) 103 mg/dL (70-99) Sodium Level 138 mmol/L (136-145) Potassium Level 3.5 mmol/L (3.5-5.1) Chloride Level 100 mmol/L (98-107) Carbon Dioxide Level 29 mmol/L (21-32) Anion Gap 9 (6-14) Blood Urea Nitrogen 19 mg/dL (8-26) Creatinine 1.8 mg/dL (0.7-1.3) Estimated GFR (Cockcroft-Gault) 55.9 Glucose Level 128 mg/dL (70-99) Calcium Level 9.3 mg/dL (8.5-10.1) Phosphorus Level 3.0 mg/dL (2.6-4.7) Albumin 3.3 g/dL (3.4-5.0) Test 05/11/20 11:31 Glucose (Fingerstick) 172 mg/dL (70-99) Medications Current Medications Sodium Chloride 1,000 ml @ 1,000 mls/hr Q1H IV Last administered on 05/05/20at 17:25; Start 05/05/20 at 17:30; Stop 05/05/20 at 18:29; Status DC Insulin Human Regular 100 ml @ 0 mls/hr 1X ONCE IV Last administered on 05/05/20at 19:32; Start 05/05/20 at 18:30; Stop 05/05/20 at 18:31; Status DC Ondansetron HCl (Zofran) 4 mg 1X ONCE IVP ; Start 05/05/20 at 18:30; Stop 05/05/20 at 18:31; Status DC Ondansetron HCl (Zofran) 4 mg PRN Q8HRS PRN IV NAUSEA/VOMITING Last administered on 05/06/20at 02:27; Start 05/05/20 at 18:45; Stop 05/06/20 at 08:16; Status DC Morphine Sulfate (Morphine Sulfate) 2 mg PRN Q2HR PRN IV PAIN Last administered on 05/06/20at 02:10; Start 05/05/20 at 18:45; Stop 05/06/20 at 18:44; Status DC Sodium Chloride 1,000 ml @ 1,000 mls/hr 1X ONCE IV Last administered on 05/05/20at 19:11; Start 05/05/20 at 19:15; Stop 05/05/20 at 20:14; Status DC Sodium Chloride 1,000 ml @ 250 mls/hr 1X ONCE IV Last administered on 05/06/20at 01:00; Start 05/06/20 at 01:00; Stop 05/06/20 at 04:59; Status DC Insulin Human Lispro (HumaLOG) 18 units TIDWMEALS SQ Last administered on 05/08/20at 17:41; Start 05/06/20 at 08:00; Stop 05/09/20 at 07:45; Status DC Insulin Glargine (Lantus Syringe) 20 unit QHS SQ Last administered on 05/10/20at 21:10; Start 05/06/20 at 02:00 Potassium Chloride (Klor-Con) 30 meq 1X ONCE PO ; Start 05/06/20 at 02:30; Stop 05/06/20 at 02:31; Status DC Insulin Human Lispro (HumaLOG) 0-5 UNITS TIDWMEALS SQ Last administered on 05/11/20at 11:59; Start 05/06/20 at 08:00 Dextrose (Dextrose 50%-Water Syringe) 12.5 gm PRN Q15MIN PRN IV SEE COMMENTS; Start 05/06/20 at 02:00 Dextrose (Iv Dextrose 5%) 250 ml PRN Q15MIN PRN IV SEE COMMENTS; Start 05/06/20 at 02:00; Status Cancel Potassium Chloride (Klor-Con) 40 meq 1X ONCE PO Last administered on 05/06/20at 08:39; Start 05/06/20 at 08:15; Stop 05/06/20 at 08:33; Status DC Potassium Chloride (Klor-Con) 20 meq DAILYWBKFT PO ; Start 05/06/20 at 08:30; Stop 05/07/20 at 09:40; Status DC Ondansetron HCl (Zofran) 8 mg PRN Q8HRS PRN IV NAUSEA/VOMITING Last administered on 05/10/20at 08:30; Start 05/06/20 at 08:15 Sodium Chloride 1,000 ml @ 1,000 mls/hr 1X ONCE IV Last administered on 05/06/20at 08:38; Start 05/06/20 at 08:30; Stop 05/06/20 at 09:29; Status DC Sodium Chloride 1,000 ml @ 1,000 mls/hr 1X ONCE IV Last administered on 05/06/20at 13:26; Start 05/06/20 at 13:30; Stop 05/06/20 at 14:29; Status DC Trazodone HCl (Desyrel) 200 mg QHS PO Last administered on 05/10/20at 22:15; Start 05/06/20 at 23:00 Lorazepam (Ativan Inj) 1 mg PRN 1X PRN IVP ANXIETY / AGITATION; Start 05/06/20 at 22:15 Potassium Bicarbonate (Potassium Effervescent Tablet) 40 meq DAILY ONCE PO Last administered on 05/07/20at 10:44; Start 05/07/20 at 10:30; Stop 05/07/20 at 10:31; Status DC Metoclopramide HCl (Reglan Vial) 10 mg 1X ONCE IVP Last administered on 05/07/20at 10:44; Start 05/07/20 at 10:30; Stop 05/07/20 at 10:31; Status DC Metoclopramide HCl (Reglan) 10 mg QIDACHS PO Last administered on 05/08/20at 09:00; Start 05/07/20 at 16:30; Stop 05/08/20 at 10:29; Status DC Potassium Chloride/Water 100 ml @ 100 mls/hr Q1H IV Last administered on 05/07/20at 15:02; Start 05/07/20 at 12:00; Stop 05/07/20 at 13:59; Status DC Potassium Bicarbonate (Potassium Effervescent Tablet) 40 meq 1X ONCE PO Last administered on 05/08/20at 09:01; Start 05/08/20 at 08:30; Stop 05/08/20 at 08:31; Status DC Potassium Chloride/Water 100 ml @ 100 mls/hr Q1H IV Last administered on 05/08/20at 12:05; Start 05/08/20 at 09:00; Stop 05/08/20 at 10:59; Status DC Metoclopramide HCl (Reglan Vial) 10 mg PRN Q6HRS PRN IVP NAUSEA/VOMITING; Start 05/08/20 at 08:00; Stop 05/08/20 at 10:21; Status DC Metoclopramide HCl (Reglan Vial) 10 mg PRN QID PRN IVP NAUSEA/VOMITING 2ND CHOICE Last administered on 05/09/20at 17:01; Start 05/08/20 at 10:30; Stop 05/10/20 at 10:11; Status DC Morphine Sulfate (Morphine Sulfate) 2 mg PRN Q2HR PRN IV PAIN; Start 05/08/20 at 10:30 Pantoprazole Sodium (PROTONIX VIAL for IV PUSH) 40 mg 1X ONCE IVP Last administered on 05/08/20at 11:00; Start 05/08/20 at 10:30; Stop 05/08/20 at 10:31; Status DC Insulin Human Lispro (HumaLOG) 12 units TIDWMEALS SQ Last administered on 05/11/20at 12:00; Start 05/09/20 at 08:00 Metoclopramide HCl (Reglan Vial) 10 mg QID IVP Last administered on 05/11/20at 08:06; Start 05/10/20 at 10:15; Stop 05/11/20 at 11:43; Status DC Metoclopramide HCl (Reglan Vial) 10 mg TIDACHC IVP Last administered on 05/11/20at 11:54; Start 05/11/20 at 11:30 Active Scripts Active Ondansetron Odt (Ondansetron) 4 Mg Tab.rapdis 1 Tab PO PRN Q6-8HRS Reported Lantus Solostar (Insulin Glargine,Hum.rec.anlog) 100 Unit/1 Ml Insuln.pen 20 Unit SQ QHS Humalog (Insulin Lispro) 100 Unit/1 Ml Vial 18 Unit SQ TIDWMEALS Trazodone Hcl 100 Mg Tablet 2 Tab PO QHS Vitals/I & O Vital Sign - Last 24 Hours 05/10/20 05/10/20 05/10/20 05/11/20 19:00 19:45 22:50 03:00 Temp 98.5 98.3 98.4 98.5 98.3 98.4 Pulse 87 91 75 Resp 18 18 18 B/P (MAP) 139/89 (106) 114/77 (89) 117/66 (83) Pulse Ox 100 99 99 O2 Delivery Room Air Room Air Room Air Room Air 105/11/20 05/11/20 07:00 07:13 11:00 Temp 98.1 98.1 98.1 98.1 Pulse 99 102 Resp 20 20 B/P (MAP) 132/85 (101) 136/89 (105) Pulse Ox 100 99 O2 Delivery Room Air Room Air Room Air Intake and Output 05/10/20 05/10/20 05/11/20 15:00 23:00 07:00 Intake Total 100 ml Output Total 625 ml Balance -525 ml Justifications for Admission Other Justification severe hyperglycemia and NPO status Nutrition Consultation Dietary Evaluation: Recommendations by RD: Dietary education by RD Comments: expect po intake to improve with restart reglan REC ADA/Cardiac diet per pmhx. Handout provided to pt on Gastroporesis Nutrition Therapy and sample 5 day menu for diabetic. Handouts left at bedside, pt not feeling well for diet education at this time. RD available x [phone] Expected Outcomes/Goals: encourage diet compliance Malnutrition Findings: Food and Nutrition Intake (Mod: <75% est energy req 7days Weight Status: Appropriate TA KEN MD May 11, 2020 14:03
[2020-05-11 15:00] VITALS: BP 114/84
[2020-05-11 19:13] VITALS: BP 128/69
[2020-05-11] MEDS: INSULIN GLARGINE SYRINGE. SQ SCH (21:21)
[2020-05-11] MEDS: traZODone 100 MG TABLET. PO SCH (22:34)
[2020-05-11 22:50] VITALS: BP 122/86
[2020-05-12 02:51] VITALS: BP 124/83
[2020-05-12] MEDS: METOCLOPRAMIDE HCL 10 MG/2 ML VIAL. IVP SCH ×4 (06:54→21:31)
[2020-05-12 07:00] VITALS: BP 139/99
[2020-05-12] MEDS: INSULIN LISPRO 300 UNITS/3 ML VIAL. SQ SCH ×6 (07:18→16:30)
--- NOTE | 2020-05-12 08:54 | PDOC ---
[employer] PROGRESS NOTE Date of Service DOS: DATE: 05/12/20 TIME: 08:54 Chief Complaint Chief Complaint A/P: Intractable nausea and vomiting - likely gastroenteritis vs gastroparesis. States he is had nausea and vomiting since the . Has known gastroparesis diagnosed 08/2019 on GES Gastroparesis - diabetic, diagnosed 08/2019 with gastric emptying study, started on reglan at that time with improvement until he ran out of meds DKA - Hyperglycemia, ACUTE Hypokalemia - Dehydrated Hyponatremia - 2/2 DKA, will hydrate Hyperbilirubinemia - constipated, will cont stool softeners Acute Renal insufficiency - vasomotor nephropathy, will hydrate NONCOMPLIANCE DUE TO LACK OF FUNDS THC ABUSE - counseled, may be contributing to vomiting Smoker - counseled on cessation Cataracts - s/p surgical correction DM1 - A1c is 15.5 this past 12/2018, repeat is 15.2 as of 04/2019, then 8.3 08/2019 FEN - ADA PPX - heparin FULL CODE Dispo - inpatient for at least 2 midnights. Placement may be necessary due to his continued poor self care. History of Present Illness History of Present Illness Mr. Molina is a 25-year-old male presenting with type 1 diabetes with abdominal pain nausea vomiting and DKA. He has many admits here, for about the same, He was recently was admitted for DKA and has many prior admits to the ICU. He has been trying to take his insulin. His pain is in his epigastrium radiates into his chest. It is mild to moderate. No alleviating or exacerbating factors. He denies fevers chills. He denies cough. Glucose is 777, CR 3.6 over chest radiograph with no acute findings. 05/07: Gap closed overnight. Afebrile. Was refusing evening Lantus. Still vomiting continuously. He notes he ran out of reglan back in February 2020 from a previous prescription from October and has been struggling since then. 05/08: Still vomiting overnight, not able to hold down PO reglan. Some epigastric pain, no blood in emesis. Converted to IV reglan. Glucose 61 after evening meal insulin 05/09: Despite scheduled IV Reglan he is still vomiting. Bilious vomiting less n ow. Asked decreases p.o. intake wall waiting for his Reglan to begin working again. No chest pain or shortness of breath. Epigastric pain improved with PPI. 05/10: Still dry heaving. Less emesis. Glucose well controlled. Pain better controlled. no SOB or CP 05/11: Nausea not well controlled, did not eat breakfast. Glucose well controlled. Pain better controlled. No SOB or CP. Ate large lunch and dinner Ate breakfast well. Pain free. No SOB or CP. glucose well controlled Plan: PO reglan, may be ready for d/c later today Vitals/I&O Vitals/I&O: Vital Signs Date Time Temp Pulse Resp B/P (MAP) Pulse Ox O2 Delivery O2 Flow Rate FiO2 05/12/20 07:33 Room Air 05/12/20 07:00 97.9 84 20 139/99 (112) 100 97.9 I & O 05/11/20 05/11/20 05/12/20 15:00 23:00 07:00 Intake Total 480 ml 750 ml Balance 480 ml 750 ml Physical Exam General: Alert, Oriented X3, Cooperative, moderate distress Heart: Regular rate, Normal S1, Normal S2 Lungs: Clear Abdomen: Normal bowel sounds, Soft, Other (Epigastric tenderness) Extremities: No clubbing, No cyanosis Skin: No rashes, No breakdown Labs Labs: Laboratory Tests Test 05/11/20 11:31 05/11/20 16:41 05/11/20 20:43 05/12/20 07:12 Glucose (Fingerstick) 172 mg/dL (70-99) 367 mg/dL (70-99) 283 mg/dL (70-99) 148 mg/dL (70-99) Comment Review of Relevant I have reviewed the following items grupo (where applicable) has been applied. Medications: Current Medications Medications (Trade) Dose Ordered Sig/Stephanie Route PRN Reason Start Time Stop Time Status Last Admin Dose Admin Metoclopramide HCl (Reglan Vial) 10 mg TIDACHC IVP 05/11/20 11:30 05/12/20 06:54 Justifications for Admission Other Justification severe hyperglycemia and NPO status PRASHANTH JAMES MD May 12, 2020 08:54
[2020-05-12] MEDS ORDERED: TRAZ-123 PO (10:48)
[2020-05-12] MEDS ORDERED: INSU100I13 SQ (10:48)
[2020-05-12] MEDS ORDERED: INSU100I11 SQ (10:48)
[2020-05-12] MEDS ORDERED: METO10TA PO (10:48)
[2020-05-12 11:00] VITALS: BP 138/88
[2020-05-12] MEDS ORDERED: METOCLOPRAMIDE 10 MG TABLET. PO SCH (11:30)
[2020-05-12 15:00] VITALS: BP 128/90
[2020-05-12 19:25] VITALS: BP 114/78
[2020-05-12] MEDS: traZODone 100 MG TABLET. PO SCH ×2 (21:31→22:00)
[2020-05-12] MEDS: INSULIN GLARGINE SYRINGE. SQ SCH (21:43)
[2020-05-12 23:38] VITALS: BP 116/82
[2020-05-13 03:24] VITALS: BP 120/78
[2020-05-13 07:00] VITALS: BP 135/80
[2020-05-13] MEDS: METOCLOPRAMIDE HCL 10 MG/2 ML VIAL. IVP SCH ×2 (07:29→12:23)
[2020-05-13] MEDS: INSULIN LISPRO 300 UNITS/3 ML VIAL. SQ SCH ×4 (08:53→12:28)
--- NOTE | 2020-05-13 09:37 | NUR ---
SW following. Discussed with RN, pt from home, room air, ada diet. Pt feeling much better today. RN advised no SW needs and anticipates possible discharge home today. SW will continue to follow.
[2020-05-13 10:29] VITALS: BP 129/77
--- NOTE | 2020-05-13 11:20 | DS ---
DATE OF DISCHARGE: 05/13/2020 ADMISSION DIAGNOSIS: Diabetic ketoacidosis. DISCHARGE DIAGNOSES: Resolving diabetic ketoacidosis, severe noncompliance, diabetes, hypertension, hyperlipidemia. CONSULTS: Dr. Pacheco. PROCEDURES: None. HOSPITAL COURSE: The patient is a pleasant middle-aged male who we admit multiple times each year. Once again, he presented with DKA. He was admitted. We gave him DKA protocol. Today, I saw and examined him, he is on the medical floor. He is doing well and wants to go home. We plan to discharge home. DISPOSITION: Home. ACTIVITY: As tolerated. DIET: Low sodium. MEDICATIONS: Please see the MRAD. TOTAL TIME: 32 minutes. JU TIAN DO DR: DOUG/zion JOB#: [id number] / [id number]
--- NOTE | 2020-05-13 11:43 | PDOC ---
[employer] PROGRESS NOTE Date of Service DOS: DATE: 05/13/20 TIME: 11:36 Chief Complaint Chief Complaint DKA History of Present Illness History of Present Illness Mr. Molina is a 25-year-old male presenting with type 1 diabetes with abdominal pain nausea vomiting and DKA. He has many admits here, for about the same, He was recently was admitted for DKA and has many prior admits to the ICU. He has been trying to take his insulin. His pain is in his epigastrium radiates into his chest. It is mild to moderate. No alleviating or exacerbating factors. He denies fevers chills. He denies cough. Glucose is 777, CR 3.6 over chest radiograph with no acute findings. 05/07: Gap closed overnight. Afebrile. Was refusing evening Lantus. Still vomiting continuously. He notes he ran out of reglan back in February 2020 from a previous prescription from October and has been struggling since then. 05/08: Still vomiting overnight, not able to hold down PO reglan. Some epigastric pain, no blood in emesis. Converted to IV reglan. Glucose 61 after evening meal insulin 05/09: Despite scheduled IV Reglan he is still vomiting. Bilious vomiting less now. Asked decreases p.o. intake wall waiting for his Reglan to begin working again. No chest pain or shortness of breath. Epigastric pain improved with PPI. 05/10: Still dry heaving. Less emesis. Glucose well controlled. Pain better controlled. no SOB or CP 05/11: Nausea not well controlled, did not eat breakfast. Glucose well controlled. Pain better controlled. No SOB or CP. Ate large lunch and dinner Ate breakfast well. Pain free. No SOB or CP. glucose well controlled 05-13-20 - Pt seen and examined - Néstor RN - Chart reviewed Vitals/I&O Vitals/I&O: Vital Signs Date Time Temp Pulse Resp B/P (MAP) Pulse Ox O2 Delivery O2 Flow Rate FiO2 05/13/20 10:29 98.4 99 18 129/77 (94) 100 Room Air 98.4 I & O 05/12/20 05/12/20 05/13/20 15:00 23:00 07:00 Intake Total 200 ml 180 ml Balance 200 ml 180 ml Physical Exam General: Alert, Oriented X3, Cooperative Heart: Regular rate, Normal S1, Normal S2 Lungs: Clear Abdomen: Normal bowel sounds, Soft, Other (Epigastric tenderness) Extremities: No clubbing, No cyanosis Skin: No rashes, No breakdown Labs Labs: Laboratory Tests Test 05/12/20 16:24 05/12/20 20:55 05/13/20 07:22 05/13/20 11:30 Glucose (Fingerstick) 189 mg/dL (70-99) 240 mg/dL (70-99) 172 mg/dL (70-99) 387 mg/dL (70-99) Review of Systems Review of Systems: No rashes or itching. No headache or dizziness. Pt is oriented and in NAD. Assessment and Plan Assessmemt and Plan A/P: Intractable nausea and vomiting - likely gastroenteritis vs gastroparesis. States he is had nausea and vomiting since the . Has known gastroparesis diagnosed 08/2019 on GES Gastroparesis - diabetic, diagnosed 08/2019 with gastric emptying study, started on reglan at that time with improvement until he ran out of meds DKA - Hyperglycemia, ACUTE Hypokalemia - Dehydrated Hyponatremia - 2/2 DKA, will hydrate Hyperbilirubinemia - constipated, will cont stool softeners Acute Renal insufficiency - vasomotor nephropathy, will hydrate NONCOMPLIANCE DUE TO LACK OF FUNDS THC ABUSE - counseled, may be contributing to vomiting Smoker - counseled on cessation Cataracts - s/p surgical correction DM1 - A1c is 15.5 this past 12/2018, repeat is 15.2 as of 04/2019, then 8.3 08/2019 FEN - ADA PPX - heparin FULL CODE Dispo - inpatient for at least 2 midnights. Placement may be necessary due to his continued poor self care. Plan: PO reglan, may be ready for d/c later today Assessment: 1. DKA 2. DM type 1 3. Gastroparesis Plan: 1. Probable discharge today Comment Review of Relevant I have reviewed the following items grupo (where applicable) has been applied. Justifications for Admission Other Justification severe hyperglycemia and NPO status JU TIAN III DO May 13, 2020 11:43
--- NOTE | 2020-05-13 12:15 | NUR ---
Dr. Phillpis paged re: poss additional insulin orders for BS 387, no call returned.
--- NOTE | 2020-05-13 13:53 | NUR ---
Pt. discharged to home with Rx, verbalized understanding of discharge instructions.
[2020-05-29] MEDS ORDERED: ONDA4TAB7 PO ×2 (07:35→07:36)
[2020-05-29] MEDS ORDERED: DOCU100C28 PO (13:27)
[2020-05-29] MEDS ORDERED: SENN8.6T11 PO (13:28)
== END 2020-05-13 13:59 | disposition home or self-care (01) | DRG 637 ==
LOC: ER 17:02 → ED HOLD 18:34 → 1 WEST ICU 05-06 01:35 → 4 NORTH 05-06 14:33
PROVIDERS: ADMIT Family Medicine; ATTEND Family Medicine
DX: E10.10 Type 1 diabetes mellitus with ketoacidosis without coma (principal); N17.0 Acute kidney failure with tubular necrosis; E87.1 Hypo-osmolality and hyponatremia; R17 Unspecified jaundice; E10.43 Type 1 diabetes mellitus with diabetic autonomic (poly)neuropathy; E86.0 Dehydration; E78.5 Hyperlipidemia, unspecified; E87.6 Hypokalemia; F12.10 Cannabis abuse, uncomplicated; F17.200 Nicotine dependence, unspecified, uncomplicated; I10 Essential (primary) hypertension; K59.00 Constipation, unspecified; K31.84 Gastroparesis; Z71.6 Tobacco abuse counseling; Z79.4 Long term (current) use of insulin; Z91.19 Patient's noncompliance with other medical treatment and regimen; Z98.49 Cataract extraction status, unspecified eye; Z82.49 Family history of ischemic heart disease and other diseases of the circulatory system
CPT/HCPCS: 36415; 71045; 80048; 80053; 80069; 82550; 82553; 82962; 83690; 83735; 84100; 85025; 93005; 96361; 96365; 96366; C9113; J1815; J2270; J2405; J2765; J3480; J7030; 99285-25; G0378

== ENCOUNTER 2020-06-09 18:49 | Inpatient (IN) | payer OTHER ==
[~2020-06-09] VITALS: Ht 172.7 cm; Wt 71.0 kg
[~2020-06-09 18:49] MED LIST changes: +DOCU100C28 PO; +METO10TA PO; -MIRT-7 PO; +MIRT15TA3 PO; +POLY17PO28 PO; -POLY17PO52 PO; +SENN8.6T11 PO
[2020-06-09] MEDS ORDERED: ONDANSETRON PF 4 MG/2 ML VIAL. IVP ONE (19:00)
[2020-06-09] MEDS ORDERED: IV NORMAL SALINE 1000ML BAG 1,000 ML IV ONE ×2 (19:00→21:15)
[2020-06-09] MEDS ORDERED: FAMOTIDINE 20 MG/2 ML VIAL IVP ONE (19:00)
--- NOTE | 2020-06-09 19:13 | PHYS DOC ---
Past Medical History Past Medical History: Diabetes-Type I Additional Past Medical Histor: cataracts, blind/visual impairment Past Surgical History: Other Additional Past Surgical Histo: "CATARACT SURGERY" Smoking Status: Current Every Day Smoker Alcohol Use: None Drug Use: Marijuana General Adult EDM: Chief Complaint: HYPERGLYCEMIA HPI: HPI: Patient is a 25 year old male who presents via EMS with abdominal pain and N/V today. The patient is a type I diabetic on NovoLog and Lantus who states he has not taken his medication in a couple of days due to "not feeling up to it". He says he has not eaten hardly during these past couple days and has not been able to hold down fluids due to severe vomiting. He also notes current abdominal pain and is vomiting during exam. He has a history of DKA and has had similar episodes in the past, due to medical noncompliance. He started to feel bad enough that he called EMS who drove him to the ED. EMS reports accucheck prior to arrival of >500. Review of Systems: Review of Systems: Constitutional: Denies fever or chills; reports generalized malaise Eyes: Denies redness or eye pain HENT: Denies nasal congestion or sore throat Respiratory: Denies cough or shortness of breath Cardiovascular: Denies chest pain or palpitations GI: Notes abdominal pain, and nausea with vomiting : Denies dysuria or hematuria Musculoskeletal: Denies back pain or joint pain Integument: Denies rash or skin lesions Neurologic: Denies headache, focal weakness or sensory changes Complete systems were reviewed and found to be within normal limits, except as documented in this note. Current Medications: Current Medications Medications (Trade) Dose Ordered Sig/Stephanie Start Time Stop Time Status Last Admin Dose Admin Famotidine (Pepcid Vial) 20 mg 1X ONCE 06/09/20 19:00 06/09/20 19:01 DC Ondansetron HCl (Zofran) 4 mg 1X ONCE 06/09/20 19:00 06/09/20 19:01 DC Sodium Chloride 1,000 ml @ 1,000 mls/hr 1X ONCE 06/09/20 19:00 06/09/20 19:59 Allergies: Allergies: Allergies Coded Allergies Type Severity Reaction Last Updated Verified No Known Drug Allergies 03/29/20 No Physical Exam: PE: Constitutional: Well developed, well nourished, non-toxic appearance HENT: Normocephalic, atraumatic, dry mucous membranes Eyes: Conjunctiva normal, no discharge Neck: Normal range of motion, no tenderness, supple Lungs & Thorax: No respiratory distress, equal chest rise and fall Abdomen: Tender to palpation but soft Skin: Warm, dry, no erythema, no rash Extremities: No tenderness, ROM intact, no edema Neurologic: Alert and oriented X 3, no focal deficits noted Psychologic: Affect normal, judgment normal EKG: EKG: [] Radiology/Procedures: Radiology/Procedures: [] Course & Med Decision Making: Course & Med Decision Making Pertinent Labs and Imaging studies reviewed. (See chart for details) Patient presents with HPI physical exam concerning for acute DKA. History of prehospital glucose greater than 500. Patient has had nausea and vomiting and diffuse abdominal pain. IVF hydration given. Labs obtained and posted to chart. Glucose > 600. Acetone positive. Insulin bolus/gtt initiated. Nausea addressed. Patient requiring admission for further evaluation and treatment. Discussed with Dr. Sr (hospitalist) who is in agreement with admission. Discussed findings and plan with patient, who acknowledges understanding and agreement. Dragon Disclaimer: Dragon Disclaimer: This electronic medical record was generated, in whole or in part, using a voice recognition dictation system. Departure Departure Impression: Primary Impression: DKA (diabetic ketoacidoses) Qualified Codes: E10.10 - Type 1 diabetes mellitus with ketoacidosis without coma Additional Impression: Acute on chronic renal insufficiency Disposition: ADMITTED INPT THIS HOSP Admitting Physician: JESSICA (Remberto) Condition: GUARDED Referrals: Razia FLOWER MD (PCP) Critical Care Time Critical care time was 30 minutes which includes time at bedside, spent in discussion of patient's care with specialists and/or family members, with interpretation of laboratory and/or radiological studies and is exclusive of procedures. DESIRE KIDD DO Jun 09, 2020 19:13
[2020-06-09 19:25] LABS: BASO % 1 % (0-3); EOS % 0 % (0-3); HEMATOCRIT 43.7 % (39.0-53.0); LYMPH # 1.2 x10^3/uL (1.0-4.8); LYMPH % 22 % (24-48); MEAN CORPUSCULAR HEMOGLOBIN 30 pg (25-35); MEAN CORPUSCULAR HGB CONC 34 g/dL (31-37); MEAN CORPUSCULAR VOLUME 87 fL (79-100); MONO # 0.4 x10^3/uL (0.0-1.1); MONO % 7 % (0-9); NEUT # 3.9 x10^3/uL (1.8-7.7); NEUT % 71 % (31-73); PLATELET COUNT 482 x10^3/uL (140-400); RED BLOOD COUNT 5.01 x10^6/uL (4.30-5.70); WHITE BLOOD COUNT 5.6 x10^3/uL (4.0-11.0)
[2020-06-09 19:42] LABS: ALBUMIN 4.3 g/dL (3.4-5.0); ALBUMIN/GLOBULIN RATIO 0.9 (1.0-1.7); CALCIUM 10.1 mg/dL (8.5-10.1); CREATININE 2.6 mg/dL (0.7-1.3); GFR 36.6; TOTAL BILIRUBIN 1.5 mg/dL (0.2-1.0)
[2020-06-09] MEDS ORDERED: INSULIN,REGULAR 100 UNIT DRIP 100 ML IV ONE (19:45)
[2020-06-09] MEDS ORDERED: INSULIN REGULAR 100 UNIT/ML 3ML VIAL. SQ ONE (19:45)
[2020-06-09] MEDS: POTASSIUM CL 40MEQ IN 0.9%NACL 1,000 ML IV ONE ×2 (20:15→20:42)
[2020-06-09 20:23] LABS: ISTAT BE VENOUS 3 mmol/L (0-3); ISTAT HCO3 VEN 26 mmol/L (24-28); ISTAT PCO2 VEN 33 mmHg (41-51); ISTAT PO2 VEN 47 mmHg (20-40); ISTAT SAT O2 VEN 87 %; ISTAT TCO2 VEN 27 mmol/L (21-32)
[2020-06-09 20:53] LABS: BILIRUBIN,URINE NEGATIVE (NEG); CLARITY,URINE CLEAR; COLOR,URINE YELLOW; NITRITE,URINE NEGATIVE (NEG); PH,URINE 6.5 (<5.0-8.0); PROTEIN,URINE NEGATIVE (NEG-TRACE); UROBILINOGEN,URINE 0.2 mg/dL (0.2 mg/dL)
[2020-06-09 21:02] LABS: BACTERIA,URINE 0 /HPF (0-FEW); RBC,URINE 0 /HPF (0-2); WBC,URINE 0 /HPF (0-4)
[2020-06-09 21:08] LABS: BARBITURATES NEG (NEG); BENZODIAZEPINES NEG (NEG); CANNABINOIDS POS (NEG); COCAINE NEG (NEG); METHADONE NEG (NEG); OPIATES NEG (NEG); PHENCYCLIDINE NEG (NEG)
--- NOTE | 2020-06-09 21:10 | PDOC1 ---
History and Physical Date of Admission Date of Admission DATE: 06/09/20 TIME: 21:03 Source Source: Chart review, Patient History of Present Illness History of Present Illness MR. Molina is well known to me, and reviewing his record, he comes to the ER in DKA about once per month on average the past two year. Today, he called EMS with abdominal pain and Nausea and vomiting. He is a type I diabetic and often does not take his meds. He states he has not taken his medication in a couple of days, and has almost no PO intake for days. He has vomited when trying to eat, and asked me for liquid, but also regland and zofran. . He also notes current abdominal pain and is vomiting during exam. He started to feel better with aggressive IV fluid in the ER, seen in ER 3. . EMS reports accucheck prior to arrival of >500. Past Medical History Cardiovascular: Hyperlipidemia GI: No pertinent hx Heme/Onc: No pertinent hx Hepatobiliary: No pertinent hx Psych: Addictions Endocrine: Diabetes Past Surgical History Past Surgical History: Cataract Removal Family History Family History: Hypertension Social History Smoke: <1 pack per day ALCOHOL: social Drugs: Marijuana Current Medications Current Medications Current Medications Sodium Chloride 1,000 ml @ 1,000 mls/hr 1X ONCE IV Last administered on 06/09/20at 19:25; Start 06/09/20 at 19:00; Stop 06/09/20 at 19:59; Status DC Famotidine (Pepcid Vial) 20 mg 1X ONCE IVP Last administered on 06/09/20at 19:21; Start 06/09/20 at 19:00; Stop 06/09/20 at 19:01; Status DC Ondansetron HCl (Zofran) 4 mg 1X ONCE IVP Last administered on 06/09/20at 19:21; Start 06/09/20 at 19:00; Stop 06/09/20 at 19:01; Status DC Insulin Human Regular (HumuLIN R VIAL) 5 unit 1X ONCE SQ Last administered on 06/09/20at 20:59; Start 06/09/20 at 19:45; Stop 06/09/20 at 19:46; Status DC Insulin Human Regular 100 ml @ 0 mls/hr 1X ONCE IV ; Start 06/09/20 at 19:45; Stop 06/09/20 at 19:46; Status DC Ondansetron HCl (Zofran) 4 mg PRN Q8HRS PRN IV NAUSEA/VOMITING; Start 06/09/20 at 20:15; Stop 06/10/20 at 20:14 Potassium Chloride/Sodium Chloride 1,000 ml @ 250 mls/hr Q4H ONCE IV Last administered on 06/09/20at 20:42; Start 06/09/20 at 20:15; Stop 06/10/20 at 00:14 Active Scripts Active Senna Laxative (Sennosides) 8.6 Mg Tablet 1 Tab PO DAILY 30 Days Docusate Sodium 100 Mg Capsule 1 Cap PO BID 7 Days Zofran (Ondansetron Hcl) 4 Mg Tablet 1 Tab PO Q6HRS PRN 30 Days Humalog (Insulin Lispro) 100 Unit/1 Ml Insuln.pen 15 Unit SQ TIDWMEALS 90 Days Metoclopramide Hcl 10 Mg Tablet 10 Mg PO QIDACHS 90 Days Lantus Solostar (Insulin Glargine,Hum.rec.anlog) 100 Unit/1 Ml Insuln.pen 20 Unit SQ QHS 90 Days Trazodone Hcl 100 Mg Tablet 2 Tab PO QHS 90 Days Allergies Allergies: Coded Allergies: No Known Drug Allergies (Unverified , 03/29/20) ROS General: YES: Chills, Fatigue, Malaise, Appetite; No: Night Sweats, Other PSYCHOLOGICAL ROS: YES: Anxiety, Sleep disturbances; No: Behavioral Disorder, Concentration difficultie, Decreased libido, Depres phyllis, Disorientation, Hallucinations, Hostility, Irritablity, Memory difficulties, Mood Swings, Obsessive thoughts, Physical abuse, Sexual abuse, Suicidal ideation, Other Eyes: No Blurry vision, No Decreased vision, No Double vision, No Dry eyes, No Excessive tearing, No Eye Pain, No Itchy Eyes, No Loss of vision, No Photophobia, No Scotomata, No Uses contacts, No Uses glasses, No Other HEENT: YES: Heacaches; No: Visual Changes, Hearing change, Nasal congestion, Nasal discharge, Oral lesions, Sinus pain, Sore Throat, Epistaxis, Sneezing, Snoring, Tinnitus, Vertigo, Vocal changes, Other Respiratory: No: Cough, Hemoptysis, Orthopnea, Pleuritic Pain, Shortness of breath, SOB with excertion, Sputum Changes, Stridor, Tachypnea, Wheezing, Other Gastrointestinal: Yes Nausea, Yes Abdominal Pain, Yes Diarrhea; No Vomiting, No Constipation, No Melena, No Hematochezia, No Other Genitourinary: No Dysuria, No Frequency, No Incontinence, No Hematuria, No Retention, No Discharge, No Urgency, No Pain, No Flank Pain, No Other, No , No , No , No , No , No , No Musculoskeletal: Yes Gait Disturbance Neurological: No Behavorial Changes, No Bowel/Bladder ControlChng, No Confusion, No Dizziness, No Gait Disturbance, No Headaches, No Impaired Coord/balance, No Memory Loss, No Numbness/Tingling, No Seizures, No Speech Problems, No Tremors, No Visual Changes, No Weakness, No Other Skin: Yes Dry Skin, Yes Other; No Eczema, No Hair Changes, No Lumps, No Mole Changes, No Mottling, No Nail Changes, No Pruritus, No Rash, No Skin Lesion Changes, No Acne Physical Exam General: Alert, Cooperative, moderate distress, severe distress HEENT: Atraumatic, PERRLA Heart: S1S2, RRR, no murmurs, other (tachy) Abdomen: Normal bowel sounds, Other (tender, diffuse) Extremities: No edema Skin: No significant lesion Neuro: Normal tone, Sensation intact Psych/Mental Status: Mood NL Vitals Vitals Vital Signs Date Time Temp Pulse Resp B/P (MAP) Pulse Ox O2 Delivery O2 Flow Rate FiO2 06/09/20 18:49 98.8 100 25 170/72 (104) 96 Room Air 98.8 Labs Labs Laboratory Tests Test 06/09/20 19:10 06/09/20 20:21 06/09/20 20:45 White Blood Count 5.6 x10^3/uL (4.0-11.0) Red Blood Count 5.01 x10^6/uL (4.30-5.70) Hemoglobin 15.0 g/dL (13.0-17.5) Hematocrit 43.7 % (39.0-53.0) Mean Corpuscular Volume 87 fL (79-100) Mean Corpuscular Hemoglobin 30 pg (25-35) Mean Corpuscular Hemoglobin Concent 34 g/dL (31-37) Red Cell Distribution Width 14.0 % (11.5-14.5) Platelet Count 482 x10^3/uL (140-400) Neutrophils (%) (Auto) 71 % (31-73) Lymphocytes (%) (Auto) 22 % (24-48) Monocytes (%) (Auto) 7 % (0-9) Eosinophils (%) (Auto) 0 % (0-3) Basophils (%) (Auto) 1 % (0-3) Neutrophils # (Auto) 3.9 x10^3/uL (1.8-7.7) Lymphocytes # (Auto) 1.2 x10^3/uL (1.0-4.8) Monocytes # (Auto) 0.4 x10^3/uL (0.0-1.1) Eosinophils # (Auto) 0.0 x10^3/uL (0.0-0.7) Basophils # (Auto) 0.0 x10^3/uL (0.0-0.2) Sodium Level 132 mmol/L (136-145) Potassium Level 4.0 mmol/L (3.5-5.1) Chloride Level 84 mmol/L (98-107) Carbon Dioxide Level 28 mmol/L (21-32) Anion Gap 20 (6-14) Blood Urea Nitrogen 33 mg/dL (8-26) Creatinine 2.6 mg/dL (0.7-1.3) Estimated GFR (Cockcroft-Gault) 36.6 BUN/Creatinine Ratio 13 (6-20) Glucose Level 626 mg/dL (70-99) Calcium Level 10.1 mg/dL (8.5-10.1) Magnesium Level 2.4 mg/dL (1.8-2.4) Total Bilirubin 1.5 mg/dL (0.2-1.0) Aspartate Amino Transf (AST/SGOT) 14 U/L (15-37) Alanine Aminotransferase (ALT/SGPT) 30 U/L (16-63) Alkaline Phosphatase 102 U/L (46-116) Total Protein 9.0 g/dL (6.4-8.2) Albumin 4.3 g/dL (3.4-5.0) Albumin/Globulin Ratio 0.9 (1.0-1.7) Lipase 127 U/L (73-393) Ethyl Alcohol Level < 10 mg/dL (0-10) Acetone Level Sm pos (NEG) Bedside Venous pH 7.50 (7.32-7.42) Bedside Venous pCO2 33 mmHg (41-51) Bedside Venous pO2 47 mmHg (20-40) Venous Blood HCO3 26 mmol/L (24-28) POC Venous O2 Saturation (Oleg) 87 % Bedside FiO2 21.0 Urine Collection Type Unknown Urine Color Yellow Urine Clarity Clear Urine pH 6.5 (<5.0-8.0) Urine Specific [place] >=1.030 (1.000-1.030) Urine Protein Negative mg/dL (NEG-TRACE) Urine Glucose (UA) >=1000 mg/dL (NEG) Urine Ketones (Stick) >=80 mg/dL (NEG) Urine Blood Negative (NEG) Urine Nitrite Negative (NEG) Urine Bilirubin Negative (NEG) Urine Urobilinogen Dipstick 0.2 mg/dL (0.2 mg/dL) Urine Leukocyte Esterase Negative (NEG) Urine RBC 0 /HPF (0-2) Urine WBC 0 /HPF (0-4) Urine Squamous Epithelial Cells None /LPF Urine Bacteria 0 /HPF (0-FEW) Laboratory Tests Test 06/09/20 19:10 06/09/20 20:21 06/09/20 20:45 White Blood Count 5.6 x10^3/uL (4.0-11.0) Red Blood Count 5.01 x10^6/uL (4.30-5.70) Hemoglobin 15.0 g/dL (13.0-17.5) Hematocrit 43.7 % (39.0-53.0) Mean Corpuscular Volume 87 fL (79-100) Mean Corpuscular Hemoglobin 30 pg (25-35) Mean Corpuscular Hemoglobin Concent 34 g/dL (31-37) Red Cell Distribution Width 14.0 % (11.5-14.5) Platelet Count 482 x10^3/uL (140-400) Neutrophils (%) (Auto) 71 % (31-73) Lymphocytes (%) (Auto) 22 % (24-48) Monocytes (%) (Auto) 7 % (0-9) Eosinophils (%) (Auto) 0 % (0-3) Basophils (%) (Auto) 1 % (0-3) Neutrophils # (Auto) 3.9 x10^3/uL (1.8-7.7) Lymphocytes # (Auto) 1.2 x10^3/uL (1.0-4.8) Monocytes # (Auto) 0.4 x10^3/uL (0.0-1.1) Eosinophils # (Auto) 0.0 x10^3/uL (0.0-0.7) Basophils # (Auto) 0.0 x10^3/uL (0.0-0.2) Sodium Level 132 mmol/L (136-145) Potassium Level 4.0 mmol/L (3.5-5.1) Chloride Level 84 mmol/L (98-107) Carbon Dioxide Level 28 mmol/L (21-32) Anion Gap 20 (6-14) Blood Urea Nitrogen 33 mg/dL (8-26) Creatinine 2.6 mg/dL (0.7-1.3) Estimated GFR (Cockcroft-Gault) 36.6 BUN/Creatinine Ratio 13 (6-20) Glucose Level 626 mg/dL (70-99) Calcium Level 10.1 mg/dL (8.5-10.1) Magnesium Level 2.4 mg/dL (1.8-2.4) Total Bilirubin 1.5 mg/dL (0.2-1.0) Aspartate Amino Transf (AST/SGOT) 14 U/L (15-37) Alanine Aminotransferase (ALT/SGPT) 30 U/L (16-63) Alkaline Phosphatase 102 U/L (46-116) Total Protein 9.0 g/dL (6.4-8.2) Albumin 4.3 g/dL (3.4-5.0) Albumin/Globulin Ratio 0.9 (1.0-1.7) Lipase 127 U/L (73-393) Ethyl Alcohol Level < 10 mg/dL (0-10) Acetone Level Sm pos (NEG) Bedside Venous pH 7.50 (7.32-7.42) Bedside Venous pCO2 33 mmHg (41-51) Bedside Venous pO2 47 mmHg (20-40) Venous Blood HCO3 26 mmol/L (24-28) POC Venous O2 Saturation (Oleg) 87 % Bedside FiO2 21.0 Urine Collection Type Unknown Urine Color Yellow Urine Clarity Clear Urine pH 6.5 (<5.0-8.0) Urine Specific [place] >=1.030 (1.000-1.030) Urine Protein Negative mg/dL (NEG-TRACE) Urine Glucose (UA) >=1000 mg/dL (NEG) Urine Ketones (Stick) >=80 mg/dL (NEG) Urine Blood Negative (NEG) Urine Nitrite Negative (NEG) Urine Bilirubin Negative (NEG) Urine Urobilinogen Dipstick 0.2 mg/dL (0.2 mg/dL) Urine Leukocyte Esterase Negative (NEG) Urine RBC 0 /HPF (0-2) Urine WBC 0 /HPF (0-4) Urine Squamous Epithelial Cells None /LPF Urine Bacteria 0 /HPF (0-FEW) VTE Prophylaxis Ordered VTE Prophylaxis Devices: Yes VTE Pharmacological Prophylaxi: Yes Assessment/Plan Assessment/Plan DKA, ketoacidosis, gap acidosis, poor compliance with Dm1, admit to ICU per protocol until gap closes Justifications for Admission Other Justification severe hyperglycemia and NPO status JEFFREY GERMAN MD Jun 09, 2020 21:10
[2020-06-09 21:11] LABS: AMPHETAMINE/METHAMPHETAMINE NEG (NEG)
[2020-06-09] MEDS ORDERED: ZOLPIDEM 5 MG TABLET. PO PRN (21:15)
[2020-06-09] MEDS ORDERED: ENOXAPARIN 30 MG/0.3 ML SYRINGE. SQ SCH (21:30)
[2020-06-09 22:00] VITALS: BP 137/92
[2020-06-09 22:15] VITALS: BP 128/82
[2020-06-09 22:30] VITALS: BP 111/75
[2020-06-09 22:45] VITALS: BP 99/65
--- NOTE | 2020-06-09 22:52 | NUR ---
Patient admitted to room 104, placed on ICU monitors. Currently has insulin gtt running. Second NS bolus started. Patient complains of nausea at this time. Dr. Sr called orders received for DKA protocol, as well as orders for when gap closes. Patient is okay to have ice chips and may advance diet when nausea subsides. Patient refused lovenox. Reassessments not completed in ER documented "not done" by this RN.
[2020-06-09 23:00] VITALS: BP 116/84
[2020-06-09] MEDS ORDERED: POTASSIUM CHLORIDE 10MEQ 100 ML IV PRN ×3 (23:00)
[2020-06-09] MEDS ORDERED: INSULIN REGULAR VIAL 100 UNIT in IV NORMAL SALINE 100ML 100 ML IV PRN (23:00)
[2020-06-09 23:25] LABS: CALCIUM 8.9 mg/dL (8.5-10.1); CREATININE 2.5 mg/dL (0.7-1.3); GFR 38.3; MAGNESIUM 2.3 mg/dL (1.8-2.4); PHOSPHORUS 4.4 mg/dL (2.6-4.7); POTASSIUM 3.9 mmol/L (3.5-5.1)
[2020-06-09] MEDS ORDERED: DEXTROSE 50% 25 GM / 50ML DISP.SYRIN. IV PRN (23:30)
[2020-06-10] VITALS (11 sets, daily range): BP systolic 98–131; BP diastolic 60–88
[2020-06-10] MEDS ORDERED: IV NORMAL SALINE 1000ML BAG 1,000 ML IV ONE (00:15)
[2020-06-10] MEDS ORDERED: POTASSIUM BICARB 20 MEQ EFFERVESCENT TABLET. PO ONE (00:15)
[2020-06-10] MEDS: ONDANSETRON PF 4 MG/2 ML VIAL. IV PRN ×2 (00:18→11:04)
[2020-06-10] MEDS ORDERED: INSULIN GLARGINE SYRINGE. SQ ONE (01:15)
[2020-06-10] MEDS: IV NORMAL SALINE 1000ML BAG 1,000 ML IV SCH ×5 (03:11→22:11)
[2020-06-10 07:13] LABS: BASO % 1 % (0-3); EOS % 1 % (0-3); HEMATOCRIT 35.1 % (39.0-53.0); LYMPH # 2.8 x10^3/uL (1.0-4.8); LYMPH % 37 % (24-48); MEAN CORPUSCULAR HEMOGLOBIN 30 pg (25-35); MEAN CORPUSCULAR HGB CONC 34 g/dL (31-37); MEAN CORPUSCULAR VOLUME 87 fL (79-100); MONO # 0.7 x10^3/uL (0.0-1.1); MONO % 10 % (0-9); NEUT % 52 % (31-73); PLATELET COUNT 371 x10^3/uL (140-400); RED BLOOD COUNT 4.02 x10^6/uL (4.30-5.70); RED CELL DISTRIBUTION WIDTH 13.8 % (11.5-14.5); WHITE BLOOD COUNT 7.6 x10^3/uL (4.0-11.0)
[2020-06-10 07:50] LABS: ALBUMIN 3.1 g/dL (3.4-5.0); ALBUMIN/GLOBULIN RATIO 0.9 (1.0-1.7); CALCIUM 8.5 mg/dL (8.5-10.1); CREATININE 2.1 mg/dL (0.7-1.3); GFR 46.8; POTASSIUM 3.6 mmol/L (3.5-5.1); TOTAL PROTEIN 6.7 g/dL (6.4-8.2)
--- NOTE | 2020-06-10 08:00 | PDOC ---
PROGRESS NOTES Date of Service: DATE: 06/10/20 TIME: 07:59 Chief Complaint Chief Complaint Assessment/Plan Assessment/Plan DKA, ketoacidosis, gap acidosis, poor compliance with Dm1, DIET and meds Uncontrolled diabetes mellitus insulin requiring Marijuana abuse gastroparesis ACUTE VASOMOTOR nephropathy, LJ admit plan SS INSULIN PROTOCOL home meds NEED for thc cessation reviewed restart lantus 20 units sq q hs Justifications for Admission Justifications for Admission Other Justification severe hyperglycemia and NPO status 37 MIN pt exam, chart review, > 50% of time spent with exam, chart review, pt care coordination History of Present Illness History of Present Illness Source Source: Chart review, Patient History of Present Illness History of Present Illness MR. Molina is well known to me, and reviewing his record, he comes to the ER in DKA about once per month on average the past two year. Today, he called EMS with abdominal pain and Nausea and vomiting. He is a type I diabetic and often does not take his meds. He states he has not taken his medication in a couple of days, and has almost no PO intake for days. He has vomited when trying to eat, and asked me for liquid, but also regland and zofran. He also notes current abdominal pain and was vomiting during exam. in er He started to feel better with aggressive IV fluid EMS reports accucheck prior to arrival of >500. Past Medical History Cardiovascular: Hyperlipidemia GI: No pertinent hx Heme/Onc: No pertinent hx Hepatobiliary: No pertinent hx Psych: Addictions Endocrine: Diabetes Past Surgical History Past Surgical History: Cataract Removal Family History Family History: Hypertension Social History Smoke: <1 pack per day ALCOHOL: social Drugs: Marijuana Allergies Allergies: Coded Allergies: No Known Drug Allergies (Unverified , 03/29/20) ROS General: YES: Chills, Fatigue, Malaise, Appetite; No: Night Sweats, Other PSYCHOLOGICAL ROS: YES: Anxiety, Sleep disturbances; No: Behavioral Disorder, Concentration difficultie, Decreased libido, Depression, Disorientation, Hallucinations, Hostility, Irritablity, Memory diffi culties, Mood Swings, Obsessive thoughts, Physical abuse, Sexual abuse, Suicidal ideation, Other Eyes: No Blurry vision, No Decreased vision, No Double vision, No Dry eyes, No Excessive tearing, No Eye Pain, No Itchy Eyes, No Loss of vision, No Photophobia, No Scotomata, No Uses contacts, No Uses glasses, No Other HEENT: YES: Heacaches; No: Visual Changes, Hearing change, Nasal congestion, Nasal discharge, Oral lesions, Sinus pain, Sore Throat, Epistaxis, Sneezing, Snoring, Tinnitus, Vertigo, Vocal changes, Other Respiratory: No: Cough, Hemoptysis, Orthopnea, Pleuritic Pain, Shortness of breath, SOB with excertion, Sputum Changes, Stridor, Tachypnea, Wheezing, Other Gastrointestinal: Yes Nausea, Yes Abdominal Pain, Yes Diarrhea; No Vomiting, No Constipation, No Melena, No Hematochezia, No Other Genitourinary: No Dysuria, No Frequency, No Incontinence, No Hematuria, No Retention, No Discharge, No Urgency, No Pain, No Flank Pain, No Other, No , No , No , No , No , No , No Musculoskeletal: Yes Gait Disturbance Neurological: No Behavorial Changes, No Bowel/Bladder ControlChng, No Confusion, No Dizziness, No Gait Disturbance, No Headaches, No Impaired Coord/balance, No Memory Loss, No Numbness/Tingling, No Seizures, No Speech Problems, No Tremors, No Visual Changes, No Weakness, No Other Skin: Yes Dry Skin, Yes Other; No Eczema, No Hair Changes, No Lumps, No Mole Changes, No Mottling, No Nail Changes, No Pruritus, No Rash, No Skin Lesion Changes, No Acne Vitals Vitals Vital Signs Date Time Temp Pulse Resp B/P (MAP) Pulse Ox O2 Delivery O2 Flow Rate FiO2 06/10/20 06:00 81 16 103/60 (74) 99 Room Air 06/10/20 04:00 97.7 97.7 Physical Exam Physical Exam Physical Exam General: Alert, Cooperative, NAD HEENT: Atraumatic, PERRLA Heart: S1S2, RRR, no murmurs, other (tachy) Abdomen: Normal bowel sounds, Other (tender, diffuse) Extremities: No edema Skin: No significant lesion Neuro: Normal tone, Sensation intact Psych/Mental Status: Mood NL General: Alert, Oriented X3, Cooperative, No acute distress, severe distress Heart: Regular rate, Normal S1, Normal S2 Lungs: Clear Abdomen: Normal bowel sounds, No tenderness, Other (tender, diffuse) Extremities: No clubbing, No cyanosis, No edema Skin: No breakdown, No significant lesion Labs LABS Laboratory Tests Test 06/09/20 19:10 06/09/20 20:21 06/09/20 20:45 06/09/20 21:04 White Blood Count 5.6 x10^3/uL (4.0-11.0) Red Blood Count 5.01 x10^6/uL (4.30-5.70) Hemoglobin 15.0 g/dL (13.0-17.5) Hematocrit 43.7 % (39.0-53.0) Mean Corpuscular Volume 87 fL (79-100) Mean Corpuscular Hemoglobin 30 pg (25-35) Mean Corpuscular Hemoglobin Concent 34 g/dL (31-37) Red Cell Distribution Width 14.0 % (11.5-14.5) Platelet Count 482 x10^3/uL (140-400) Neutrophils (%) (Auto) 71 % (31-73) Lymphocytes (%) (Auto) 22 % (24-48) Monocytes (%) (Auto) 7 % (0-9) Eosinophils (%) (Auto) 0 % (0-3) Basophils (%) (Auto) 1 % (0-3) Neutrophils # (Auto) 3.9 x10^3/uL (1.8-7.7) Lymphocytes # (Auto) 1.2 x10^3/uL (1.0-4.8) Monocytes # (Auto) 0.4 x10^3/uL (0.0-1.1) Eosinophils # (Auto) 0.0 x10^3/uL (0.0-0.7) Basophils # (Auto) 0.0 x10^3/uL (0.0-0.2) Sodium Level 132 mmol/L (136-145) Potassium Level 4.0 mmol/L (3.5-5.1) Chloride Level 84 mmol/L (98-107) Carbon Dioxide Level 28 mmol/L (21-32) Anion Gap 20 (6-14) Blood Urea Nitrogen 33 mg/dL (8-26) Creatinine 2.6 mg/dL (0.7-1.3) Estimated GFR (Cockcroft-Gault) 36.6 BUN/Creatinine Ratio 13 (6-20) Glucose Level 626 mg/dL (70-99) Calcium Level 10.1 mg/dL (8.5-10.1) Magnesium Level 2.4 mg/dL (1.8-2.4) Total Bilirubin 1.5 mg/dL (0.2-1.0) Aspartate Amino Transf (AST/SGOT) 14 U/L (15-37) Alanine Aminotransferase (ALT/SGPT) 30 U/L (16-63) Alkaline Phosphatase 102 U/L (46-116) Total Protein 9.0 g/dL (6.4-8.2) Albumin 4.3 g/dL (3.4-5.0) Albumin/Globulin Ratio 0.9 (1.0-1.7) Lipase 127 U/L (73-393) Ethyl Alcohol Level < 10 mg/dL (0-10) Acetone Level Sm pos (NEG) Bedside Venous pH 7.50 (7.32-7.42) Bedside Venous pCO2 33 mmHg (41-51) Bedside Venous pO2 47 mmHg (20-40) Venous Blood HCO3 26 mmol/L (24-28) POC Venous O2 Saturation (Oleg) 87 % Bedside FiO2 21.0 Urine Collection Type Unknown Urine Color Yellow Urine Clarity Clear Urine pH 6.5 (<5.0-8.0) Urine Specific [place] >=1.030 (1.000-1.030) Urine Protein Negative mg/dL (NEG-TRACE) Urine Glucose (UA) >=1000 mg/dL (NEG) Urine Ketones (Stick) >=80 mg/dL (NEG) Urine Blood Negative (NEG) Urine Nitrite Negative (NEG) Urine Bilirubin Negative (NEG) Urine Urobilinogen Dipstick 0.2 mg/dL (0.2 mg/dL) Urine Leukocyte Esterase Negative (NEG) Urine RBC 0 /HPF (0-2) Urine WBC 0 /HPF (0-4) Urine Squamous Epithelial Cells None /LPF Urine Bacteria 0 /HPF (0-FEW) Urine Opiates Screen Neg (NEG) Urine Methadone Screen Neg (NEG) Urine Barbiturates Neg (NEG) Urine Phencyclidine Screen Neg (NEG) Urine Amphetamine/Methamphetamine Neg (NEG) Urine Benzodiazepines Screen Neg (NEG) Urine Cocaine Screen Neg (NEG) Urine Cannabinoids Screen Pos (NEG) Urine Ethyl Alcohol Neg (NEG) Glucose (Fingerstick) 570 mg/dL (70-99) Test 06/09/20 22:14 06/09/20 23:00 06/10/20 00:59 06/10/20 02:04 Glucose (Fingerstick) 563 mg/dL (70-99) 298 mg/dL (70-99) 213 mg/dL (70-99) Sodium Level 135 mmol/L (136-145) Potassium Level 3.9 mmol/L (3.5-5.1) Chloride Level 93 mmol/L (98-107) Carbon Dioxide Level 31 mmol/L (21-32) Anion Gap 11 (6-14) Blood Urea Nitrogen 33 mg/dL (8-26) Creatinine 2.5 mg/dL (0.7-1.3) Estimated GFR (Cockcroft-Gault) 38.3 Glucose Level 509 mg/dL (70-99) Calcium Level 8.9 mg/dL (8.5-10.1) Phosphorus Level 4.4 mg/dL (2.6-4.7) Magnesium Level 2.3 mg/dL (1.8-2.4) Test 06/10/20 03:45 06/10/20 06:50 Glucose (Fingerstick) 167 mg/dL (70-99) White Blood Count 7.6 x10^3/uL (4.0-11.0) Red Blood Count 4.02 x10^6/uL (4.30-5.70) Hemoglobin 12.0 g/dL (13.0-17.5) Hematocrit 35.1 % (39.0-53.0) Mean Corpuscular Volume 87 fL (79-100) Mean Corpuscular Hemoglobin 30 pg (25-35) Mean Corpuscular Hemoglobin Concent 34 g/dL (31-37) Red Cell Distribution Width 13.8 % (11.5-14.5) Platelet Count 371 x10^3/uL (140-400) Neutrophils (%) (Auto) 52 % (31-73) Lymphocytes (%) (Auto) 37 % (24-48) Monocytes (%) (Auto) 10 % (0-9) Eosinophils (%) (Auto) 1 % (0-3) Basophils (%) (Auto) 1 % (0-3) Neutrophils # (Auto) 4.0 x10^3/uL (1.8-7.7) Lymphocytes # (Auto) 2.8 x10^3/uL (1.0-4.8) Monocytes # (Auto) 0.7 x10^3/uL (0.0-1.1) Eosinophils # (Auto) 0.0 x10^3/uL (0.0-0.7) Basophils # (Auto) 0.0 x10^3/uL (0.0-0.2) Sodium Level 139 mmol/L (136-145) Potassium Level 3.6 mmol/L (3.5-5.1) Chloride Level 100 mmol/L (98-107) Carbon Dioxide Level 31 mmol/L (21-32) Anion Gap 8 (6-14) Blood Urea Nitrogen 28 mg/dL (8-26) Creatinine 2.1 mg/dL (0.7-1.3) Estimated GFR (Cockcroft-Gault) 46.8 BUN/Creatinine Ratio 13 (6-20) Glucose Level 214 mg/dL (70-99) Calcium Level 8.5 mg/dL (8.5-10.1) Total Bilirubin 1.0 mg/dL (0.2-1.0) Aspartate Amino Transf (AST/SGOT) 10 U/L (15-37) Alanine Aminotransferase (ALT/SGPT) 22 U/L (16-63) Alkaline Phosphatase 69 U/L (46-116) Total Protein 6.7 g/dL (6.4-8.2) Albumin 3.1 g/dL (3.4-5.0) Albumin/Globulin Ratio 0.9 (1.0-1.7) Comment Review of Relevant I have reviewed the following items grupo (where applicable) has been applied. Labs Laboratory Tests Test 06/09/20 19:10 06/09/20 20:21 06/09/20 20:45 06/09/20 21:04 White Blood Count 5.6 x10^3/uL (4.0-11.0) Red Blood Count 5.01 x10^6/uL (4.30-5.70) Hemoglobin 15.0 g/dL (13.0-17.5) Hematocrit 43.7 % (39.0-53.0) Mean Corpuscular Volume 87 fL (79-100) Mean Corpuscular Hemoglobin 30 pg (25-35) Mean Corpuscular Hemoglobin Concent 34 g/dL (31-37) Red Cell Distribution Width 14.0 % (11.5-14.5) Platelet Count 482 x10^3/uL (140-400) Neutrophils (%) (Auto) 71 % (31-73) Lymphocytes (%) (Auto) 22 % (24-48) Monocytes (%) (Auto) 7 % (0-9) Eosinophils (%) (Auto) 0 % (0-3) Basophils (%) (Auto) 1 % (0-3) Neutrophils # (Auto) 3.9 x10^3/uL (1.8-7.7) Lymphocytes # (Auto) 1.2 x10^3/uL (1.0-4.8) Monocytes # (Auto) 0.4 x10^3/uL (0.0-1.1) Eosinophils # (Auto) 0.0 x10^3/uL (0.0-0.7) Basophils # (Auto) 0.0 x10^3/uL (0.0-0.2) Sodium Level 132 mmol/L (136-145) Potassium Level 4.0 mmol/L (3.5-5.1) Chloride Level 84 mmol/L (98-107) Carbon Dioxide Level 28 mmol/L (21-32) Anion Gap 20 (6-14) Blood Urea Nitrogen 33 mg/dL (8-26) Creatinine 2.6 mg/dL (0.7-1.3) Estimated GFR (Cockcroft-Gault) 36.6 BUN/Creatinine Ratio 13 (6-20) Glucose Level 626 mg/dL (70-99) Calcium Level 10.1 mg/dL (8.5-10.1) Magnesium Level 2.4 mg/dL (1.8-2.4) Total Bilirubin 1.5 mg/dL (0.2-1.0) Aspartate Amino Transf (AST/SGOT) 14 U/L (15-37) Alanine Aminotransferase (ALT/SGPT) 30 U/L (16-63) Alkaline Phosphatase 102 U/L (46-116) Total Protein 9.0 g/dL (6.4-8.2) Albumin 4.3 g/dL (3.4-5.0) Albumin/Globulin Ratio 0.9 (1.0-1.7) Lipase 127 U/L (73-393) Ethyl Alcohol Level < 10 mg/dL (0-10) Acetone Level Sm pos (NEG) Bedside Venous pH 7.50 (7.32-7.42) Bedside Venous pCO2 33 mmHg (41-51) Bedside Venous pO2 47 mmHg (20-40) Venous Blood HCO3 26 mmol/L (24-28) POC Venous O2 Saturation (Oleg) 87 % Bedside FiO2 21.0 Urine Collection Type Unknown Urine Color Yellow Urine Clarity Clear Urine pH 6.5 (<5.0-8.0) Urine Specific [place] >=1.030 (1.000-1.030) Urine Protein Negative mg/dL (NEG-TRACE) Urine Glucose (UA) >=1000 mg/dL (NEG) Urine Ketones (Stick) >=80 mg/dL (NEG) Urine Blood Negative (NEG) Urine Nitrite Negative (NEG) Urine Bilirubin Negative (NEG) Urine Urobilinogen Dipstick 0.2 mg/dL (0.2 mg/dL) Urine Leukocyte Esterase Negative (NEG) Urine RBC 0 /HPF (0-2) Urine WBC 0 /HPF (0-4) Urine Squamous Epithelial Cells None /LPF Urine Bacteria 0 /HPF (0-FEW) Urine Opiates Screen Neg (NEG) Urine Methadone Screen Neg (NEG) Urine Barbiturates Neg (NEG) Urine Phencyclidine Screen Neg (NEG) Urine Amphetamine/Methamphetamine Neg (NEG) Urine Benzodiazepines Screen Neg (NEG) Urine Cocaine Screen Neg (NEG) Urine Cannabinoids Screen Pos (NEG) Urine Ethyl Alcohol Neg (NEG) Glucose (Fingerstick) 570 mg/dL (70-99) Test 06/09/20 22:14 06/09/20 23:00 06/10/20 00:59 06/10/20 02:04 Glucose (Fingerstick) 563 mg/dL (70-99) 298 mg/dL (70-99) 213 mg/dL (70-99) Sodium Level 135 mmol/L (136-145) Potassium Level 3.9 mmol/L (3.5-5.1) Chloride Level 93 mmol/L (98-107) Carbon Dioxide Level 31 mmol/L (21-32) Anion Gap 11 (6-14) Blood Urea Nitrogen 33 mg/dL (8-26) Creatinine 2.5 mg/dL (0.7-1.3) Estimated GFR (Cockcroft-Gault) 38.3 Glucose Level 509 mg/dL (70-99) Calcium Level 8.9 mg/dL (8.5-10.1) Phosphorus Level 4.4 mg/dL (2.6-4.7) Magnesium Level 2.3 mg/dL (1.8-2.4) Test 06/10/20 03:45 06/10/20 06:50 Glucose (Fingerstick) 167 mg/dL (70-99) White Blood Count 7.6 x10^3/uL (4.0-11.0) Red Blood Count 4.02 x10^6/uL (4.30-5.70) Hemoglobin 12.0 g/dL (13.0-17.5) Hematocrit 35.1 % (39.0-53.0) Mean Corpuscular Volume 87 fL (79-100) Mean Corpuscular Hemoglobin 30 pg (25-35) Mean Corpuscular Hemoglobin Concent 34 g/dL (31-37) Red Cell Distribution Width 13.8 % (11.5-14.5) Platelet Count 371 x10^3/uL (140-400) Neutrophils (%) (Auto) 52 % (31-73) Lymphocytes (%) (Auto) 37 % (24-48) Monocytes (%) (Auto) 10 % (0-9) Eosinophils (%) (Auto) 1 % (0-3) Basophils (%) (Auto) 1 % (0-3) Neutrophils # (Auto) 4.0 x10^3/uL (1.8-7.7) Lymphocytes # (Auto) 2.8 x10^3/uL (1.0-4.8) Monocytes # (Auto) 0.7 x10^3/uL (0.0-1.1) Eosinophils # (Auto) 0.0 x10^3/uL (0.0-0.7) Basophils # (Auto) 0.0 x10^3/uL (0.0-0.2) Sodium Level 139 mmol/L (136-145) Potassium Level 3.6 mmol/L (3.5-5.1) Chloride Level 100 mmol/L (98-107) Carbon Dioxide Level 31 mmol/L (21-32) Anion Gap 8 (6-14) Blood Urea Nitrogen 28 mg/dL (8-26) Creatinine 2.1 mg/dL (0.7-1.3) Estimated GFR (Cockcroft-Gault) 46.8 BUN/Creatinine Ratio 13 (6-20) Glucose Level 214 mg/dL (70-99) Calcium Level 8.5 mg/dL (8.5-10.1) Total Bilirubin 1.0 mg/dL (0.2-1.0) Aspartate Amino Transf (AST/SGOT) 10 U/L (15-37) Alanine Aminotransferase (ALT/SGPT) 22 U/L (16-63) Alkaline Phosphatase 69 U/L (46-116) Total Protein 6.7 g/dL (6.4-8.2) Albumin 3.1 g/dL (3.4-5.0) Albumin/Globulin Ratio 0.9 (1.0-1.7) Laboratory Tests Test 06/09/20 19:10 06/09/20 20:21 06/09/20 20:45 06/09/20 21:04 White Blood Count 5.6 x10^3/uL (4.0-11.0) Red Blood Count 5.01 x10^6/uL (4.30-5.70) Hemoglobin 15.0 g/dL (13.0-17.5) Hematocrit 43.7 % (39.0-53.0) Mean Corpuscular Volume 87 fL (79-100) Mean Corpuscular Hemoglobin 30 pg (25-35) Mean Corpuscular Hemoglobin Concent 34 g/dL (31-37) Red Cell Distribution Width 14.0 % (11.5-14.5) Platelet Count 482 x10^3/uL (140-400) Neutrophils (%) (Auto) 71 % (31-73) Lymphocytes (%) (Auto) 22 % (24-48) Monocytes (%) (Auto) 7 % (0-9) Eosinophils (%) (Auto) 0 % (0-3) Basophils (%) (Auto) 1 % (0-3) Neutrophils # (Auto) 3.9 x10^3/uL (1.8-7.7) Lymphocytes # (Auto) 1.2 x10^3/uL (1.0-4.8) Monocytes # (Auto) 0.4 x10^3/uL (0.0-1.1) Eosinophils # (Auto) 0.0 x10^3/uL (0.0-0.7) Basophils # (Auto) 0.0 x10^3/uL (0.0-0.2) Sodium Level 132 mmol/L (136-145) Potassium Level 4.0 mmol/L (3.5-5.1) Chloride Level 84 mmol/L (98-107) Carbon Dioxide Level 28 mmol/L (21-32) Anion Gap 20 (6-14) Blood Urea Nitrogen 33 mg/dL (8-26) Creatinine 2.6 mg/dL (0.7-1.3) Estimated GFR (Cockcroft-Gault) 36.6 BUN/Creatinine Ratio 13 (6-20) Glucose Level 626 mg/dL (70-99) Calcium Level 10.1 mg/dL (8.5-10.1) Magnesium Level 2.4 mg/dL (1.8-2.4) Total Bilirubin 1.5 mg/dL (0.2-1.0) Aspartate Amino Transf (AST/SGOT) 14 U/L (15-37) Alanine Aminotransferase (ALT/SGPT) 30 U/L (16-63) Alkaline Phosphatase 102 U/L (46-116) Total Protein 9.0 g/dL (6.4-8.2) Albumin 4.3 g/dL (3.4-5.0) Albumin/Globulin Ratio 0.9 (1.0-1.7) Lipase 127 U/L (73-393) Ethyl Alcohol Level < 10 mg/dL (0-10) Acetone Level Sm pos (NEG) Bedside Venous pH 7.50 (7.32-7.42) Bedside Venous pCO2 33 mmHg (41-51) Bedside Venous pO2 47 mmHg (20-40) Venous Blood HCO3 26 mmol/L (24-28) POC Venous O2 Saturation (Oleg) 87 % Bedside FiO2 21.0 Urine Collection Type Unknown Urine Color Yellow Urine Clarity Clear Urine pH 6.5 (<5.0-8.0) Urine Specific [place] >=1.030 (1.000-1.030) Urine Protein Negative mg/dL (NEG-TRACE) Urine Glucose (UA) >=1000 mg/dL (NEG) Urine Ketones (Stick) >=80 mg/dL (NEG) Urine Blood Negative (NEG) Urine Nitrite Negative (NEG) Urine Bilirubin Negative (NEG) Urine Urobilinogen Dipstick 0.2 mg/dL (0.2 mg/dL) Urine Leukocyte Esterase Negative (NEG) Urine RBC 0 /HPF (0-2) Urine WBC 0 /HPF (0-4) Urine Squamous Epithelial Cells None /LPF Urine Bacteria 0 /HPF (0-FEW) Urine Opiates Screen Neg (NEG) Urine Methadone Screen Neg (NEG) Urine Barbiturates Neg (NEG) Urine Phencyclidine Screen Neg (NEG) Urine Amphetamine/Methamphetamine Neg (NEG) Urine Benzodiazepines Screen Neg (NEG) Urine Cocaine Screen Neg (NEG) Urine Cannabinoids Screen Pos (NEG) Urine Ethyl Alcohol Neg (NEG) Glucose (Fingerstick) 570 mg/dL (70-99) Test 06/09/20 22:14 06/09/20 23:00 06/10/20 00:59 06/10/20 02:04 Glucose (Fingerstick) 563 mg/dL (70-99) 298 mg/dL (70-99) 213 mg/dL (70-99) Sodium Level 135 mmol/L (136-145) Potassium Level 3.9 mmol/L (3.5-5.1) Chloride Level 93 mmol/L (98-107) Carbon Dioxide Level 31 mmol/L (21-32) Anion Gap 11 (6-14) Blood Urea Nitrogen 33 mg/dL (8-26) Creatinine 2.5 mg/dL (0.7-1.3) Estimated GFR (Cockcroft-Gault) 38.3 Glucose Level 509 mg/dL (70-99) Calcium Level 8.9 mg/dL (8.5-10.1) Phosphorus Level 4.4 mg/dL (2.6-4.7) Magnesium Level 2.3 mg/dL (1.8-2.4) Test 06/10/20 03:45 06/10/20 06:50 Glucose (Fingerstick) 167 mg/dL (70-99) White Blood Count 7.6 x10^3/uL (4.0-11.0) Red Blood Count 4.02 x10^6/uL (4.30-5.70) Hemoglobin 12.0 g/dL (13.0-17.5) Hematocrit 35.1 % (39.0-53.0) Mean Corpuscular Volume 87 fL (79-100) Mean Corpuscular Hemoglobin 30 pg (25-35) Mean Corpuscular Hemoglobin Concent 34 g/dL (31-37) Red Cell Distribution Width 13.8 % (11.5-14.5) Platelet Count 371 x10^3/uL (140-400) Neutrophils (%) (Auto) 52 % (31-73) Lymphocytes (%) (Auto) 37 % (24-48) Monocytes (%) (Auto) 10 % (0-9) Eosinophils (%) (Auto) 1 % (0-3) Basophils (%) (Auto) 1 % (0-3) Neutrophils # (Auto) 4.0 x10^3/uL (1.8-7.7) Lymphocytes # (Auto) 2.8 x10^3/uL (1.0-4.8) Monocytes # (Auto) 0.7 x10^3/uL (0.0-1.1) Eosinophils # (Auto) 0.0 x10^3/uL (0.0-0.7) Basophils # (Auto) 0.0 x10^3/uL (0.0-0.2) Sodium Level 139 mmol/L (136-145) Potassium Level 3.6 mmol/L (3.5-5.1) Chloride Level 100 mmol/L (98-107) Carbon Dioxide Level 31 mmol/L (21-32) Anion Gap 8 (6-14) Blood Urea Nitrogen 28 mg/dL (8-26) Creatinine 2.1 mg/dL (0.7-1.3) Estimated GFR (Cockcroft-Gault) 46.8 BUN/Creatinine Ratio 13 (6-20) Glucose Level 214 mg/dL (70-99) Calcium Level 8.5 mg/dL (8.5-10.1) Total Bilirubin 1.0 mg/dL (0.2-1.0) Aspartate Amino Transf (AST/SGOT) 10 U/L (15-37) Alanine Aminotransferase (ALT/SGPT) 22 U/L (16-63) Alkaline Phosphatase 69 U/L (46-116) Total Protein 6.7 g/dL (6.4-8.2) Albumin 3.1 g/dL (3.4-5.0) Albumin/Globulin Ratio 0.9 (1.0-1.7) Medications Current Medications Sodium Chloride 1,000 ml @ 1,000 mls/hr 1X ONCE IV Last administered on 06/09/20at 19:25; Start 06/09/20 at 19:00; Stop 06/09/20 at 19:59; Status DC Famotidine (Pepcid Vial) 20 mg 1X ONCE IVP Last administered on 06/09/20at 19:21; Start 06/09/20 at 19:00; Stop 06/09/20 at 19:01; Status DC Ondansetron HCl (Zofran) 4 mg 1X ONCE IVP Last administered on 06/09/20at 19:21; Start 06/09/20 at 19:00; Stop 06/09/20 at 19:01; Status DC Insulin Human Regular (HumuLIN R VIAL) 5 unit 1X ONCE SQ Last administered on 06/09/20at 20:59; Start 06/09/20 at 19:45; Stop 06/09/20 at 19:46; Status DC Insulin Human Regular 100 ml @ 0 mls/hr 1X ONCE IV Last administered on 06/09/20at 21:30; Start 06/09/20 at 19:45; Stop 06/09/20 at 19:46; Status DC Ondansetron HCl (Zofran) 4 mg PRN Q8HRS PRN IV NAUSEA/VOMITING Last administered on 06/10/20at 00:18; Start 06/09/20 at 20:15; Stop 06/10/20 at 20:14 Potassium Chloride/Sodium Chloride 1,000 ml @ 250 mls/hr Q4H ONCE IV ; Start 06/09/20 at 20:15; Stop 06/10/20 at 00:14; Status DC Metoclopramide HCl (Reglan) 5 mg TIDAC PO ; Start 06/10/20 at 07:30 Sodium Chloride 1,000 ml @ 1,000 mls/hr 1X ONCE IV Last administered on 06/09/20at 21:20; Start 06/09/20 at 21:15; Stop 06/09/20 at 22:14; Status DC Trazodone HCl (Desyrel) 100 mg QHS PO ; Start 06/10/20 at 21:15 Zolpidem Tartrate (Ambien) 5 mg PRN QHS PRN PO INSOMNIA Last administered on 06/09/20at 23:47; Start 06/09/20 at 21:15 Enoxaparin Sodium (Lovenox Per Pharmacy Prophylaxis Dosing) 1 each PRN DAILY PRN MC SEE COMMENTS; Start 06/09/20 at 21:15 Enoxaparin Sodium (Lovenox 30mg Syringe) 30 mg Q24H SQ ; Start 06/09/20 at 21:30 Insulin Human Regular 100 unit/ Sodium Chloride 101 ml @ 0 mls/hr CONT PRN PRN IV PER PROTOCOL; Start 06/09/20 at 23:00 Potassium Chloride/Water 100 ml @ 100 mls/hr PRN Q1HR PRN IV SEE COMMENTS; Start 06/09/20 at 23:00 Potassium Chloride/Water 100 ml @ 100 mls/hr PRN Q1HR PRN IV SEE COMMENTS; Start 06/09/20 at 23:00 Potassium Chloride/Water 100 ml @ 100 mls/hr PRN Q1HR PRN IV SEE COMMENTS; Start 06/09/20 at 23:00 Insulin Human Lispro (HumaLOG) 0-7 UNITS TIDWMEALS SQ ; Start 06/10/20 at 08:00 Dextrose (Dextrose 50%-Water Syringe) 12.5 gm PRN Q15MIN PRN IV SEE COMMENTS; Start 06/09/20 at 23:30 Potassium Bicarbonate (Potassium Effervescent Tablet) 40 meq 1X ONCE PO Last administered on 06/10/20at 00:22; Start 06/10/20 at 00:15; Stop 06/10/20 at 00:16; Status DC Sodium Chloride 1,000 ml @ 250 mls/hr 1X ONCE IV Last administered on 06/10/20at 00:20; Start 06/10/20 at 00:15; Stop 06/10/20 at 04:14; Status DC Insulin Glargine (Lantus Syringe) 20 unit 1X ONCE SQ Last administered on 06/10/20at 01:14; Start 06/10/20 at 01:15; Stop 06/10/20 at 01:16; Status DC Insulin Glargine (Lantus Syringe) 20 unit QHS SQ ; Start 06/10/20 at 21:00 Insulin Human Lispro (HumaLOG) 15 units TIDWMEALS SQ ; Start 06/10/20 at 08:00 Sodium Chloride 1,000 ml @ 250 mls/hr Q4H IV Last administered on 06/10/20at 03:11; Start 06/10/20 at 03:00 Active Scripts Active Senna Laxative (Sennosides) 8.6 Mg Tablet 1 Tab PO DAILY 30 Days Docusate Sodium 100 Mg Capsule 1 Cap PO BID 7 Days Zofran (Ondansetron Hcl) 4 Mg Tablet 1 Tab PO Q6HRS PRN 30 Days Humalog (Insulin Lispro) 100 Unit/1 Ml Insuln.pen 15 Unit SQ TIDWMEALS 90 Days Metoclopramide Hcl 10 Mg Tablet 10 Mg PO QIDACHS 90 Days Lantus Solostar (Insulin Glargine,Hum.rec.anlog) 100 Unit/1 Ml Insuln.pen 20 Unit SQ QHS 90 Days Trazodone Hcl 100 Mg Tablet 2 Tab PO QHS 90 Days Vitals/I & O Vital Sign - Last 24 Hours 06/09/20 06/09/20 06/09/20 06/09/20 18:49 18:55 19:08 19:23 Temp 98.8 98.8 98.8 98.8 98.8 98.8 98.8 98.8 Pulse 100 106 96 106 Resp B/P (MAP) 170/72 (104) 170/72 (104) 156/92 (113) 175/113 (133) Pulse Ox 96 97 96 96 O2 Delivery Room Air Room Air Room Air Room Air 06/09/20 06/09/20 06/09/20 06/09/20 19:41 19:53 20:08 20:23 Temp 98.8 98.8 98.8 98.8 98.8 98.8 98.8 98.8 Pulse 87 98 86 86 Resp 18 B/P (MAP) 131/92 (105) 145/98 (114) 139/86 (103) 157/78 (104) Pulse Ox 98 98 97 97 O2 Delivery Room Air Room Air Room Air Room Air 06/09/20 06/09/20 06/09/20 06/09/20 21:08 21:31 21:45 22:00 Temp 98.8 98.8 98.8 98.3 98.8 98.8 98.8 98.3 Pulse 93 89 92 100 Resp 24 24 18 18 B/P (MAP) 117/68 (84) 116/71 (86) 115/77 (90) 137/92 (107) Pulse Ox 98 98 98 100 O2 Delivery Room Air Room Air Room Air Room Air 06/09/20 06/09/20 06/09/20 06/09/20 22:15 22:15 22:30 22:45 Pulse 102 84 84 Resp 20 20 18 B/P (MAP) 128/82 (97) 111/75 (87) 99/65 (76) Pulse Ox 100 97 99 O2 Delivery Room Air Room Air Room Air Room Air 06/09/20 06/09/20 06/10/20 06/10/20 23:00 23:50 00:00 01:00 Temp 98.2 98.2 Pulse 98 87 90 Resp 16 18 14 B/P (MAP) 116/84 (95) 114/61 (78) 110/68 (82) Pulse Ox 99 100 99 O2 Delivery Room Air Room Air Room Air Room Air 06/10/20 06/10/20 06/10/20 06/10/20 02:00 03:00 04:00 04:00 Temp 97.7 97.7 Pulse 84 86 68 Resp 14 12 14 B/P (MAP) 101/60 (74) 110/64 (79) 131/75 (93) Pulse Ox 99 98 98 O2 Delivery Room Air Room Air Room Air Room Air 06/10/20 06/10/20 05:00 06:00 Pulse 73 81 Resp 14 16 B/P (MAP) 98/60 (73) 103/60 (74) Pulse Ox 98 99 O2 Delivery Room Air Room Air Intake and Output 06/09/20 06/09/20 06/10/20 15:00 23:00 07:00 Intake Total 2000 ml 1343 ml Output Total 650 ml Balance 2000 ml 693 ml Justicifation of Admission Dx: Justifications for Admission: Justification of Admission Dx: N/A DKA: JIE CARDONA MD Jun 10, 2020 08:00
[2020-06-10] MEDS: METOCLOPRAMIDE 5 MG TABLET. PO SCH ×3 (08:10→16:46)
[2020-06-10] MEDS: INSULIN LISPRO 300 UNITS/3 ML VIAL. SQ SCH ×6 (08:14→16:49)
--- NOTE | 2020-06-10 12:23 | NUR ---
SW following for discharge planning. Spoke with RN and reviewed chart. Pt has a hx of noncompliance and multiple hospital admissions r/t DKA. SW met with pt. Pt currently on room air and a clear liquid diet. Pt stated no needs on discharge other than a "cab pass home." Pt has [place] Medicaid. Discharge plan is home, self-care. Pt at high risk for readmission. SW following.
[2020-06-10] MEDS: ENOXAPARIN 40 MG/0.4 ML SYRINGE. SQ SCH (21:00)
[2020-06-10] MEDS: traZODone 100 MG TABLET. PO SCH (22:13)
[2020-06-10] MEDS: INSULIN GLARGINE SYRINGE. SQ SCH (22:48)
[2020-06-11 03:00] VITALS: BP 107/56
[2020-06-11 03:09] LABS: HEMOGLOBIN A1C 14.2 % (4.8-5.6)
--- NOTE | 2020-06-11 04:30 | NUR ---
Patient calls, reports he vomited, on observing the output, patient had clear spit-appearing contents, the container is emptied, he spat approximately 50cc clear contents. blood glucose checked, as patient's gown wet, 194 results, patient wants diet lemon-tulalip, instructed to take sips, verbalizes to do so.
[2020-06-11] MEDS: ONDANSETRON PF 4 MG/2 ML VIAL. IVP PRN ×3 (04:36→15:55)
[2020-06-11] MEDS: IV NORMAL SALINE 1000ML BAG 1,000 ML IV SCH ×6 (04:36→23:33)
[2020-06-11 07:00] VITALS: BP 131/78
[2020-06-11] MEDS: METOCLOPRAMIDE 5 MG TABLET. PO SCH ×3 (07:30→17:34)
[2020-06-11] MEDS: INSULIN LISPRO 300 UNITS/3 ML VIAL. SQ SCH ×6 (08:00→17:00)
--- NOTE | 2020-06-11 08:00 | NUR ---
RESTING QUIETLY IN BED. REFUSED REGLAN. HAD EMESIS OF APPROX 200 CC CLEAR LIQUID WITH THICK PHLEGM. GIVEN ZOFRAN. IVF CONT AT 150CC HR. REFUSED INSULIN "im NOT EATING" GIVEN MEAL DOSE FOR A BS OF 266. HELD SLIDING SCALE.
[2020-06-11 09:37] LABS: BASO % 0 % (0-3); EOS % 1 % (0-3); HEMATOCRIT 34.6 % (39.0-53.0); LYMPH # 1.5 x10^3/uL (1.0-4.8); LYMPH % 27 % (24-48); MEAN CORPUSCULAR HEMOGLOBIN 30 pg (25-35); MEAN CORPUSCULAR HGB CONC 35 g/dL (31-37); MEAN CORPUSCULAR VOLUME 87 fL (79-100); MONO # 0.2 x10^3/uL (0.0-1.1); MONO % 4 % (0-9); NEUT # 3.9 x10^3/uL (1.8-7.7); NEUT % 69 % (31-73); PLATELET COUNT 309 x10^3/uL (140-400); RED BLOOD COUNT 3.98 x10^6/uL (4.30-5.70); RED CELL DISTRIBUTION WIDTH 13.4 % (11.5-14.5); WHITE BLOOD COUNT 5.7 x10^3/uL (4.0-11.0)
[2020-06-11 09:49] LABS: ALBUMIN 2.8 g/dL (3.4-5.0); ALBUMIN/GLOBULIN RATIO 0.8 (1.0-1.7); CREATININE 1.6 mg/dL (0.7-1.3); POTASSIUM 3.4 mmol/L (3.5-5.1); TOTAL BILIRUBIN 0.9 mg/dL (0.2-1.0); TOTAL PROTEIN 6.1 g/dL (6.4-8.2)
[2020-06-11 11:00] VITALS: BP 149/97
--- NOTE | 2020-06-11 11:38 | PDOC ---
[facility] PROGRESS NOTE Date of Service DOS: DATE: 06/11/20 TIME: 11:32 Chief Complaint Chief Complaint DKA, ketoacidosis, gap acidosis, poor compliance with Dm1, DIET and meds Uncontrolled diabetes mellitus insulin requiring Marijuana abuse gastroparesis ACUTE VASOMOTOR nephropathy, LJ History of Present Illness History of Present Illness 06/11 - Pt seen and examined. Discussed compliance with insulin and candidacy for insulin pump at , etc. explained understanding of the constant vigilance needed to keep up with diabetic management. Pt complains of nausea and requests med relief. MR. Molina is well known to me, and reviewing his record, he comes to the ER in [facility] about once per month on average the past two year. Today, he called EMS with abdominal pain and Nausea and vomiting. He is a type I diabetic and often does not take his meds. He states he has not taken his medication in a couple of days, and has almost no PO intake for days. He has vomited when trying to eat, and asked me for liquid, but also regland and zofran. He also notes current abdominal pain and was vomiting during exam. in er He started to feel better with aggressive IV fluid EMS reports accucheck prior to arrival of >500. Vitals/I&O Vitals/I&O: Vital Signs Date Time Temp Pulse Resp B/P (MAP) Pulse Ox O2 Delivery O2 Flow Rate FiO2 06/11/20 11:00 98.7 88 16 149/97 (114) 100 Room Air 98.7 I & O 06/10/20 06/10/20 06/11/20 15:00 23:00 07:00 Intake Total 500 ml 1560 ml 600 ml Balance 500 ml 1560 ml 600 ml Physical Exam Physical Exam: Physical Exam General: Alert, Cooperative, NAD HEENT: Atraumatic, PERRLA Heart: S1S2, RRR, no murmurs, other (tachy) Abdomen: Normal bowel sounds, Other (tender, diffuse) Extremities: No edema Skin: No significant lesion Neuro: Normal tone, Sensation intact Psych/Mental Status: Mood slightly depressed General: Alert, Oriented X3, Cooperative, No acute distress, severe distress Heart: Regular rate, Normal S1, Normal S2 Lungs: Clear Abdomen: Normal bowel sounds, No tenderness, Other (tender, diffuse) Extremities: No clubbing, No cyanosis, No edema Skin: No breakdown, No significant lesion Labs Labs: Laboratory Tests Test 06/10/20 16:35 06/10/20 22:11 06/11/20 04:25 06/11/20 08:03 Glucose (Fingerstick) 164 mg/dL (70-99) 141 mg/dL (70-99) 194 mg/dL (70-99) 266 mg/dL (70-99) Test 06/11/20 09:27 White Blood Count 5.7 x10^3/uL (4.0-11.0) Red Blood Count 3.98 x10^6/uL (4.30-5.70) Hemoglobin 12.0 g/dL (13.0-17.5) Hematocrit 34.6 % (39.0-53.0) Mean Corpuscular Volume 87 fL (79-100) Mean Corpuscular Hemoglobin 30 pg (25-35) Mean Corpuscular Hemoglobin Concent 35 g/dL (31-37) Red Cell Distribution Width 13.4 % (11.5-14.5) Platelet Count 309 x10^3/uL (140-400) Neutrophils (%) (Auto) 69 % (31-73) Lymphocytes (%) (Auto) 27 % (24-48) Monocytes (%) (Auto) 4 % (0-9) Eosinophils (%) (Auto) 1 % (0-3) Basophils (%) (Auto) 0 % (0-3) Neutrophils # (Auto) 3.9 x10^3/uL (1.8-7.7) Lymphocytes # (Auto) 1.5 x10^3/uL (1.0-4.8) Monocytes # (Auto) 0.2 x10^3/uL (0.0-1.1) Eosinophils # (Auto) 0.0 x10^3/uL (0.0-0.7) Basophils # (Auto) 0.0 x10^3/uL (0.0-0.2) Sodium Level 132 mmol/L (136-145) Potassium Level 3.4 mmol/L (3.5-5.1) Chloride Level 101 mmol/L (98-107) Carbon Dioxide Level 26 mmol/L (21-32) Anion Gap 5 (6-14) Blood Urea Nitrogen 16 mg/dL (8-26) Creatinine 1.6 mg/dL (0.7-1.3) Estimated GFR (Cockcroft-Gault) 64.0 BUN/Creatinine Ratio 10 (6-20) Glucose Level 225 mg/dL (70-99) Calcium Level 8.0 mg/dL (8.5-10.1) Total Bilirubin 0.9 mg/dL (0.2-1.0) Aspartate Amino Transf (AST/SGOT) 20 U/L (15-37) Alanine Aminotransferase (ALT/SGPT) 25 U/L (16-63) Alkaline Phosphatase 65 U/L (46-116) Total Protein 6.1 g/dL (6.4-8.2) Albumin 2.8 g/dL (3.4-5.0) Albumin/Globulin Ratio 0.8 (1.0-1.7) Review of Systems Review of Systems: Nausea, and decreased mood noted Assessment and Plan Assessmemt and Plan Assessment DKA, ketoacidosis, gap acidosis, poor compliance with Dm1, DIET and meds Uncontrolled diabetes mellitus insulin requiring Marijuana abuse gastroparesis ACUTE VASOMOTOR nephropathy, LJ Depression Plan IV fluids Insulin PRN anti-emetics Trend labs (anion gap, glucose) Home Meds DVT prevention Full Code Comment Review of Relevant I have reviewed the following items grupo (where applicable) has been applied. Medications: Current Medications Medications (Trade) Dose Ordered Sig/Stephanie Route PRN Reason Start Time Stop Time Status Last Admin Dose Admin Trazodone HCl (Desyrel) 100 mg QHS PO 06/10/20 21:15 06/10/20 22:13 Insulin Glargine (Lantus Syringe) 20 unit QHS SQ 06/10/20 21:00 06/10/20 22:48 Ondansetron HCl (Zofran) 4 mg PRN Q8HRS PRN IVP NAUSEA/VOMITING 06/11/20 04:30 06/11/20 08:46 Justifications for Admission Other Justification severe hyperglycemia and NPO status JU TIAN III DO Jun 11, 2020 11:38 am
--- NOTE | 2020-06-11 11:59 | NUR ---
SW following for discharge planning. Spoke with RN and reviewed chart. Discharge plan remains home, self-care. Pt not ready for discharge today. Pt nauseated and not tolerating food or liquids. SW available as needed. No anticipated SW needs on discharge.
[2020-06-11 15:00] VITALS: BP 132/82
--- NOTE | 2020-06-11 16:01 | NUR ---
ate 1 bowl of orange jello and has been throwing up orange colored liquid. medicated with Zofran at this time. encouraged not to guzzle ice water just sip. verbalized understanding. Addendum: 06/11/20 at 1604 by SHANIQUE CORBETT RN iv site only able to tolerate at 150cchr; Dr. Jacqueline lang.
[2020-06-11 19:00] VITALS: BP 132/89
[2020-06-11] MEDS: ENOXAPARIN 40 MG/0.4 ML SYRINGE. SQ SCH (21:15)
[2020-06-11] MEDS: INSULIN GLARGINE SYRINGE. SQ SCH (21:15)
[2020-06-11] MEDS: traZODone 100 MG TABLET. PO SCH ×2 (21:16→21:17)
[2020-06-11 23:00] VITALS: BP 133/96
[2020-06-12 03:00] VITALS: BP 114/54
[2020-06-12] MEDS: IV NORMAL SALINE 1000ML BAG 1,000 ML IV SCH ×3 (03:17→11:00)
[2020-06-12] MEDS: ONDANSETRON PF 4 MG/2 ML VIAL. IVP PRN ×2 (03:44→10:55)
[2020-06-12 07:00] VITALS: BP 139/94
[2020-06-12] MEDS: INSULIN LISPRO 300 UNITS/3 ML VIAL. SQ SCH ×4 (08:00→12:12)
[2020-06-12] MEDS: METOCLOPRAMIDE 5 MG TABLET. PO SCH ×2 (08:18→12:07)
--- NOTE | 2020-06-12 09:23 | PDOC ---
[facility] PROGRESS NOTE Date of Service DOS: DATE: 06/12/20 TIME: 09:20 Chief Complaint Chief Complaint DKA, ketoacidosis, gap acidosis, poor compliance with Dm1, DIET and meds Uncontrolled diabetes mellitus insulin requiring Marijuana abuse gastroparesis ACUTE VASOMOTOR nephropathy, LJ History of Present Illness History of Present Illness 06/12 - pt seen and examined again today, pt looking out window on arrival. Discussed possible discharge, pending labs. Anion gap was 5 on 06/11. 06/11 - Pt seen and examined. Discussed compliance with insulin and candidacy for insulin pump at , etc. explained understanding of the constant vigilance needed to keep up with diabetic management. Pt complains of nausea and requests med relief. MR. Molina is well known to me, and reviewing his record, he comes to the ER in [facility] about once per month on average the past two year. Today, he called EMS with abdominal pain and Nausea and vomiting. He is a type I diabetic and often does not take his meds. He states he has not taken his medication in a couple of days, and has almost no PO intake for days. He has vomited when trying to eat, and asked me for liquid, but also regland and zofran. He also notes current abdominal pain and was vomiting during exam. in er He started to feel better with aggressive IV fluid EMS reports accucheck prior to arrival of >500. Vitals/I&O Vitals/I&O: Vital Signs Date Time Temp Pulse Resp B/P (MAP) Pulse Ox O2 Delivery O2 Flow Rate FiO2 06/12/20 08:00 Room Air 06/12/20 07:00 98.3 70 16 139/94 (109) 100 98.3 I & O 06/11/20 06/11/20 06/12/20 15:00 23:00 07:00 Intake Total 0 ml 440 ml 2200 ml Output Total 200 ml 1000 ml 525 ml Balance -200 ml -560 ml 1675 ml Physical Exam Physical Exam: Physical Exam General: Alert, Cooperative, NAD HEENT: Atraumatic, PERRLA Heart: S1S2, RRR, no murmurs, other (tachy) Abdomen: Normal bowel sounds, Other (tender, diffuse) Extremities: No edema Skin: No significant lesion Neuro: Normal tone, Sensation intact Psych/Mental Status: Mood slightly depressed General: Alert, Oriented X3, Cooperative, No acute distress, severe distress Heart: Regular rate, Normal S1, Normal S2 Lungs: Clear Abdomen: Normal bowel sounds, No tenderness, Other (tender, diffuse) Extremities: No clubbing, No cyanosis, No edema Skin: No breakdown, No significant lesion Labs Labs: Laboratory Tests Test 06/11/20 09:27 06/11/20 11:40 06/11/20 18:18 06/11/20 21:14 White Blood Count 5.7 x10^3/uL (4.0-11.0) Red Blood Count 3.98 x10^6/uL (4.30-5.70) Hemoglobin 12.0 g/dL (13.0-17.5) Hematocrit 34.6 % (39.0-53.0) Mean Corpuscular Volume 87 fL (79-100) Mean Corpuscular Hemoglobin 30 pg (25-35) Mean Corpuscular Hemoglobin Concent 35 g/dL (31-37) Red Cell Distribution Width 13.4 % (11.5-14.5) Platelet Count 309 x10^3/uL (140-400) Neutrophils (%) (Auto) 69 % (31-73) Lymphocytes (%) (Auto) 27 % (24-48) Monocytes (%) (Auto) 4 % (0-9) Eosinophils (%) (Auto) 1 % (0-3) Basophils (%) (Auto) 0 % (0-3) Neutrophils # (Auto) 3.9 x10^3/uL (1.8-7.7) Lymphocytes # (Auto) 1.5 x10^3/uL (1.0-4.8) Monocytes # (Auto) 0.2 x10^3/uL (0.0-1.1) Eosinophils # (Auto) 0.0 x10^3/uL (0.0-0.7) Basophils # (Auto) 0.0 x10^3/uL (0.0-0.2) Sodium Level 132 mmol/L (136-145) Potassium Level 3.4 mmol/L (3.5-5.1) Chloride Level 101 mmol/L (98-107) Carbon Dioxide Level 26 mmol/L (21-32) Anion Gap 5 (6-14) Blood Urea Nitrogen 16 mg/dL (8-26) Creatinine 1.6 mg/dL (0.7-1.3) Estimated GFR (Cockcroft-Gault) 64.0 BUN/Creatinine Ratio 10 (6-20) Glucose Level 225 mg/dL (70-99) Calcium Level 8.0 mg/dL (8.5-10.1) Total Bilirubin 0.9 mg/dL (0.2-1.0) Aspartate Amino Transf (AST/SGOT) 20 U/L (15-37) Alanine Aminotransferase (ALT/SGPT) 25 U/L (16-63) Alkaline Phosphatase 65 U/L (46-116) Total Protein 6.1 g/dL (6.4-8.2) Albumin 2.8 g/dL (3.4-5.0) Albumin/Globulin Ratio 0.8 (1.0-1.7) Glucose (Fingerstick) 111 mg/dL (70-99) 179 mg/dL (70-99) 162 mg/dL (70-99) Test 06/12/20 07:46 Glucose (Fingerstick) 180 mg/dL (70-99) Review of Systems Review of Systems: No new complaints today. Assessment and Plan Assessmemt and Plan Assessment DKA, ketoacidosis, gap acidosis, poor compliance with Dm1, DIET and meds Uncontrolled diabetes mellitus insulin requiring Marijuana abuse gastroparesis ACUTE VASOMOTOR nephropathy, LJ Depression Plan Possible discharge pending anion gap labs IV fluids Insulin PRN anti-emetics Trend labs (anion gap, glucose) Home Meds DVT prevention Full Code Cardiac monitoring Comment Review of Relevant I have reviewed the following items rgupo (where applicable) has been applied. Justifications for Admission Other Justification severe hyperglycemia and NPO status JU TIAN III DO Jun 12, 2020 9:23 am
--- NOTE | 2020-06-12 10:28 | NUR ---
SW following. Discussed with RN, pt from home, room air, clear liquid diet. Discharge order for home with self care. RN advised no SW needs. Pt is a high risk readmission due to non compliance.
[2020-06-12 11:00] VITALS: BP 141/114
--- NOTE | 2020-06-12 13:13 | NUR ---
Pt discharged home with self care. Discharge instructions and medications discussed. Pt verbalized understanding. IV removed. Pt ambulated to main entrance and was taken by transportation.
--- NOTE | 2020-06-13 12:17 | DS ---
DATE OF DISCHARGE: 06/12/2020 ADMISSION DIAGNOSIS: Diabetic ketoacidosis. DISCHARGE DIAGNOSES: Resolving diabetic ketoacidosis, acute on chronic renal failure, marijuana use, gastroparesis, noncompliance. CONSULTS: None. PROCEDURES: None. HOSPITAL COURSE: The patient is a pleasant middle-aged male, well known to our service, who gets admitted a couple of times a month with DKA. Basically, he is noncompliant with his meds. He was admitted. We gave him DKA protocol. Yesterday, I saw and examined him, he is at his baseline, wanted to go home and we discharged to home. DISPOSITION: Home. ACTIVITY: As tolerated. DIET: Renal. MEDICATIONS: Please see the MRAD. We put him back on his home meds, which included trazodone 200 mg at bedtime, docusate 1 b.i.d., senna, metoclopramide 10 q.i.d., 20 units of Lantus insulin at bedtime and 15 units of NovoLog insulin with meals. TOTAL TIME: 32 minutes. JU TIAN DO DR: DOUG/zion JOB#: [id number] / [id number]
== END 2020-06-12 12:45 | disposition home or self-care (01) | DRG 637 ==
LOC: ER 18:49 → 1 WEST ICU 20:54 → 5 NORTH 06-10 07:23
PROVIDERS: ADMIT Internal Medicine; ATTEND Internal Medicine
DX: E10.10 Type 1 diabetes mellitus with ketoacidosis without coma (principal); N17.0 Acute kidney failure with tubular necrosis; Z79.4 Long term (current) use of insulin; F12.10 Cannabis abuse, uncomplicated; K31.84 Gastroparesis; E10.43 Type 1 diabetes mellitus with diabetic autonomic (poly)neuropathy; F32.9 Major depressive disorder, single episode, unspecified; E10.22 Type 1 diabetes mellitus with diabetic chronic kidney disease; E78.5 Hyperlipidemia, unspecified; F17.210 Nicotine dependence, cigarettes, uncomplicated; N18.9 Chronic kidney disease, unspecified; Z82.49 Family history of ischemic heart disease and other diseases of the circulatory system; Z91.14 Patient's other noncompliance with medication regimen; Z98.49 Cataract extraction status, unspecified eye
CPT/HCPCS: 36415; 80048; 80053; 80307; 81001; 82010; 82803; 82962; 83036; 83690; 83735; 84100; 85025; 96361; 96365; 96372; 96375; G0480; J1815; J2405; J3480; J3490; J7030; 99285-25; G0378

== ENCOUNTER 2020-06-22 11:09 | Emergency (ER) | payer OTHER ==
[~2020-06-22] VITALS: Ht 172.7 cm; Wt 63.0 kg
[~2020-06-22 11:09] MED LIST changes: -POLY17PO28 PO; +POLY17PO52 PO
[2020-06-22] MEDS ORDERED: IV NORMAL SALINE 1000ML BAG 1,000 ML IV ONE (11:30)
[2020-06-22 11:38] LABS: BASO % 1 % (0-3); EOS % 0 % (0-3); HEMATOCRIT 43.6 % (39.0-53.0); HEMOGLOBIN 15.3 g/dL (13.0-17.5); LYMPH # 2.3 x10^3/uL (1.0-4.8); LYMPH % 38 % (24-48); MEAN CORPUSCULAR HEMOGLOBIN 31 pg (25-35); MEAN CORPUSCULAR HGB CONC 35 g/dL (31-37); MEAN CORPUSCULAR VOLUME 87 fL (79-100); MONO # 0.5 x10^3/uL (0.0-1.1); MONO % 9 % (0-9); NEUT # 3.3 x10^3/uL (1.8-7.7); NEUT % 53 % (31-73); PLATELET COUNT 439 x10^3/uL (140-400); RED BLOOD COUNT 5.01 x10^6/uL (4.30-5.70); RED CELL DISTRIBUTION WIDTH 14.2 % (11.5-14.5); WHITE BLOOD COUNT 6.2 x10^3/uL (4.0-11.0)
[2020-06-22] MEDS ORDERED: ONDANSETRON PF 4 MG/2 ML VIAL. IVP ONE (11:45)
[2020-06-22 11:46] LABS: CALCIUM 10.5 mg/dL (8.5-10.1); CREATININE 2.2 mg/dL (0.7-1.3); GFR 44.3; POTASSIUM 3.8 mmol/L (3.5-5.1)
[2020-06-22 11:52] LABS: ALBUMIN 4.3 g/dL (3.4-5.0); ALBUMIN/GLOBULIN RATIO 0.9 (1.0-1.7); TOTAL BILIRUBIN 1.8 mg/dL (0.2-1.0); TOTAL PROTEIN 9.1 g/dL (6.4-8.2)
[2020-06-22] MEDS ORDERED: INSULIN REGULAR 100 UNIT/ML 3ML VIAL. IV ONE (12:30)
--- NOTE | 2020-06-22 13:09 | RAD ---
Acute Abdominal Series: 06/22/2020 12:45 PM Reason for study: Abdominal pain, nausea and vomiting. Comparison studies: None. Technique: Frontal view of the chest was obtained along with supine and upright views of the abdomen. Findings: Nonobstructive bowel gas pattern. No air fluid levels or free air. The lungs are clear without acute consolidative opacity. No pleural effusion or pneumothorax. The car diac and mediastinal contours are normal. Visualized osseous structures are intact. IMPRESSION: 1. Nonobstructed bowel gas pattern. 2. No acute cardiopulmonary findings. Electronically signed by: Lucia Tovar MD (06/22/2020 1:06 PM) [id number]
--- NOTE | 2020-06-22 13:24 | PHYS DOC ---
Past Medical History Past Medical History: Diabetes-Type I Additional Past Medical Histor: cataracts, blind/visual impairment Past Surgical History: Other Additional Past Surgical Histo: "CATARACT SURGERY" Smoking Status: Current Every Day Smoker Alcohol Use: None Drug Use: Marijuana General Adult EDM: Chief Complaint: NAUSEA/VOMITING/DIARRHA HPI: HPI: Patient is a 25 year old male who was brought here by EMS from home due to nausea vomiting, epigastric abdominal pain. Patient has history of diabetic, he is on insulin at home. Patient said he used his insulin last night. Patient said he does not have the glucometer to measure his blood sugar at home. Patient denies any cough, no fever, no trouble breathing. Patient has been evaluated here numerous times for the same problem, patient was in DKA in the past. Patient was evaluated by his physician last month for the same problem, CT scan her abdomen pelvis did not show any acute problem. Review of Systems: Review of Systems: Constitutional: Denies fever or chills. [] Eyes: Denies change in visual acuity. [] HENT: Denies nasal congestion or sore throat. [] Respiratory: Denies cough or shortness of breath. [] Cardiovascular: Denies chest pain or edema. [] GI: Positive for epigastric abdominal pain, nausea, vomiting : Denies dysuria. [] Musculoskeletal: Denies back pain or joint pain. [] Integument: Denies rash. [] Neurologic: Denies headache, focal weakness or sensory changes. [] Endocrine: Denies polyuria or polydipsia. [] Lymphatic: Denies swollen glands. [] Psychiatric: Denies depression or anxiety. [] Heart Score: C/O Chest Pain: N/A Risk Factors: Risk Factors: DM, Current or recent (<one month) smoker, HTN, HLP, family history of CAD, obesity. Risk Scores: Score 0 - 3: 2.5% MACE over next 6 weeks - Discharge Home Score 4 - 6: 20.3% MACE over next 6 weeks - Admit for Clinical Observation Score 7 - 10: 72.7% MACE over next 6 weeks - Early Invasive Strategies Current Medications: Current Medications Medications (Trade) Dose Ordered Sig/Stephanie Start Time Stop Time Status Last Admin Dose Admin Insulin Human Regular (HumuLIN R VIAL) 10 unit 1X ONCE 06/22/20 12:30 06/22/20 12:31 DC 06/22/20 12:40 10 UNIT Ondansetron HCl (Zofran) 4 mg 1X ONCE 06/22/20 11:45 06/22/20 11:46 DC 06/22/20 11:43 4 MG Sodium Chloride 1,000 ml @ 1,000 mls/hr 1X ONCE 06/22/20 11:30 06/22/20 12:29 DC 06/22/20 11:43 1,000 MLS/HR Allergies: Allergies: Allergies Coded Allergies Type Severity Reaction Last Updated Verified No Known Drug Allergies 03/29/20 No Physical Exam: PE: Constitutional: Well developed, well nourished, no acute distress, non-toxic appearance. [] HENT: Normocephalic, atraumatic, bilateral external ears normal, oropharynx moist, no oral exudates, nose normal. [] Eyes: PERRLA, EOMI, conjunctiva normal, no discharge. [] Neck: Normal range of motion, no tenderness, supple, no stridor. [] Cardiovascular:Heart rate regular rhythm, no murmur [] Lungs & Thorax: Bilateral breath sounds clear to auscultation [] Abdomen: Bowel sounds normal, soft, epigastric is tender to palpation, no masses, no pulsatile masses. [] Skin: Warm, dry, no erythema, no rash. [] Back: No tenderness, no CVA tenderness. [] Extremities: No tenderness, no cyanosis, no clubbing, ROM intact, no edema. [] Neurologic: Alert and oriented X 3, normal motor function, normal sensory function, no focal deficits noted. [] Psychologic: Affect normal, judgement normal, mood normal. [] Current Patient Data: Labs: Laboratory Tests Test 06/22/20 11:17 06/22/20 11:20 Glucose (Fingerstick) 396 mg/dL (70-99) H White Blood Count 6.2 x10^3/uL (4.0-11.0) Red Blood Count 5.01 x10^6/uL (4.30-5.70) Hemoglobin 15.3 g/dL (13.0-17.5) Hematocrit 43.6 % (39.0-53.0) Mean Corpuscular Volume 87 fL (79-100) Mean Corpuscular Hemoglobin 31 pg (25-35) Mean Corpuscular Hemoglobin Concent 35 g/dL (31-37) Red Cell Distribution Width 14.2 % (11.5-14.5) Platelet Count 439 x10^3/uL (140-400) H Neutrophils (%) (Auto) 53 % (31-73) Lymphocytes (%) (Auto) 38 % (24-48) Monocytes (%) (Auto) 9 % (0-9) Eosinophils (%) (Auto) 0 % (0-3) Basophils (%) (Auto) 1 % (0-3) Neutrophils # (Auto) 3.3 x10^3/uL (1.8-7.7) Lymphocytes # (Auto) 2.3 x10^3/uL (1.0-4.8) Monocytes # (Auto) 0.5 x10^3/uL (0.0-1.1) Eosinophils # (Auto) 0.0 x10^3/uL (0.0-0.7) Basophils # (Auto) 0.0 x10^3/uL (0.0-0.2) Sodium Level 130 mmol/L (136-145) L Potassium Level 3.8 mmol/L (3.5-5.1) Chloride Level 87 mmol/L (98-107) L Carbon Dioxide Level 30 mmol/L (21-32) Anion Gap 13 (6-14) Blood Urea Nitrogen 30 mg/dL (8-26) H Creatinine 2.2 mg/dL (0.7-1.3) H Estimated GFR (Cockcroft-Gault) 44.3 BUN/Creatinine Ratio 14 (6-20) Glucose Level 389 mg/dL (70-99) H Calcium Level 10.5 mg/dL (8.5-10.1) H Magnesium Level 2.0 mg/dL (1.8-2.4) Total Bilirubin 1.8 mg/dL (0.2-1.0) H Aspartate Amino Transferase (AST) 20 U/L (15-37) Alanine Aminotransferase (ALT) 31 U/L (16-63) Alkaline Phosphatase 98 U/L (46-116) Total Protein 9.1 g/dL (6.4-8.2) H Albumin 4.3 g/dL (3.4-5.0) Albumin/Globulin Ratio 0.9 (1.0-1.7) L Lipase 121 U/L (73-393) Acetone Level Neg (NEG) Laboratory Tests 06/22/20 11:20 Laboratory Tests 06/22/20 11:20 Vital Signs: Vital Signs Date Time Temp Pulse Resp B/P (MAP) Pulse Ox O2 Delivery O2 Flow Rate FiO2 06/22/20 11:10 98.1 100 16 140/80 (100) 99 Room Air 98.1 EKG: EKG: [] Radiology/Procedures: Radiology/Procedures: [][facility] [address] [place] [address] IMAGING REPORT Signed PATIENT: TIMA SINGH ACCOUNT: [id number] : 1995 LOCATION: ER AGE: 25 SEX: M EXAM STATUS: REG ER ORD. PHYSICIAN: ROSA RAVI DO REASON: ABDOMINAL PAIN, NAUSEA AND VOMITING PROCEDURE: ACUTE ABDOMEN SERIES Acute Abdominal Series: 06/22/2020 12:45 PM Reason for study: Abdominal pain, nausea and vomiting. Comparison studies: None. Technique: Frontal view of the chest was obtained along with supine and upright views of the abdomen. Findings: Nonobstructive bowel gas pattern. No air fluid levels or free air. The lungs are clear without acute consolidative opacity. No pleural effusion or pneumothorax. The cardiac and mediastinal contours are normal. Visualized osseous structures are intact. IMPRESSION: 1. Nonobstructed bowel gas pattern. 2. No acute cardiopulmonary findings. Electronically signed by: Sharri Crawford MD (06/22/2020 1:06 PM) [id number] DICTATED and SIGNED BY: SHARRI CRAWFORD MD DATE: 06/22/20 [id number] Course & Med Decision Making: Course & Med Decision Making Pertinent Labs and Imaging studies reviewed. (See chart for details) Patient is a 25-year-old male who was brought here by EMS from home due to nausea vomiting and epigastric abdominal pain. Patient has history of diabetic, his blood sugar was 395, patient was given IV fluid and insulin and it improved to around 200. Patient was not in DKA. X-ray his abdomen pelvic did not show any acute problem. Patient most likely has gastroparesis from uncontrolled diabetic. There is no need for admission at this time. Patient be discharged home with nausea medication Dragon Disclaimer: Dragjs Disclaimer: This electronic medical record was generated, in whole or in part, using a voice recognition dictation system. Departure Departure Impression: Primary Impression: Hyperglycemia Additional Impression: Dehydration Disposition: 01 DC HOME SELF CARE/HOMELESS Condition: STABLE Referrals: Razia FLOWER MD (PCP) PLEASE FOLLOW UP WITH YOUR DOCTOR ON WEDNESDAY Patient Instructions: Dehydration, Adult, Hyperglycemia Additional Instructions: Thank you for visiting our Emergency Department. We appreciate you trusting us with your care. If any additional problems come up don't hesitate to return to visit us. Please follow up with your primary care provider so they can plan additional care if needed and know about the problem that you had. If symptoms worsen come back to the Emergency Department. Any concerning symptoms that start such as chest pain, shortness of air, weakness or numbness on one side of the body, running high fevers or any other concerning symptoms return to the ER. Scripts Metoclopramide Hcl (REGLAN) 10 Mg Tablet 1 TAB PO QID PRN for NAUSEA, #30 TAB 0 Refills before food and bedtime Prov: ROSA RAVI DO 06/22/20 ROSA RAVI DO Jun 22, 2020 13:23
[2020-06-22 14:56] LABS: BILIRUBIN,URINE NEGATIVE (NEG); CLARITY,URINE CLEAR; COLOR,URINE YELLOW; NITRITE,URINE NEGATIVE (NEG); PROTEIN,URINE 100 mg/dL (NEG-TRACE)
[2020-06-22 15:03] LABS: BACTERIA,URINE 0 /HPF (0-FEW); RBC,URINE 0 /HPF (0-2)
[2020-06-22 15:04] LABS: WBC,URINE OCC /HPF (0-4)
[2020-06-22 15:12] VITALS: BP 138/92
[2020-06-22] MEDS ORDERED: METO10TA81 PO (15:12)
--- NOTE | 2020-06-22 19:36 | EKG ---
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
== END 2020-06-22 15:40 | disposition home or self-care (01) ==
LOC: ER 11:09
DX: E10.65 Type 1 diabetes mellitus with hyperglycemia (principal); E86.0 Dehydration; F17.200 Nicotine dependence, unspecified, uncomplicated
CPT/HCPCS: 36415; 74022; 80053; 81001; 82010; 82962; 83690; 83735; 85025; 93005; 96361; 96374; 96375; 99285; J1815; J2405; J7030

== ENCOUNTER 2020-06-24 13:19 | Observation (INO) | payer OTHER ==
[~2020-06-24] VITALS: Ht 172.7 cm; Wt 62.3 kg
[~2020-06-24 13:19] MED LIST changes: +METO10TA81 PO
[2020-06-24] MEDS ORDERED: ONDANSETRON PF 4 MG/2 ML VIAL. ONE (13:53)
[2020-06-24] MEDS ORDERED: IV NORMAL SALINE 1000ML BAG 1,000 ML IV ONE (14:00)
[2020-06-24] MEDS ORDERED: ONDANSETRON PF 4 MG/2 ML VIAL. IVP ONE (14:00)
[2020-06-24 14:29] LABS: BASO % 1 % (0-3); EOS % 0 % (0-3); HEMATOCRIT 44.5 % (39.0-53.0); HEMOGLOBIN 15.5 g/dL (13.0-17.5); LYMPH % 35 % (24-48); MEAN CORPUSCULAR HEMOGLOBIN 30 pg (25-35); MEAN CORPUSCULAR HGB CONC 35 g/dL (31-37); MEAN CORPUSCULAR VOLUME 87 fL (79-100); MONO # 0.5 x10^3/uL (0.0-1.1); MONO % 9 % (0-9); NEUT % 55 % (31-73); PLATELET COUNT 416 x10^3/uL (140-400); RED BLOOD COUNT 5.12 x10^6/uL (4.30-5.70); RED CELL DISTRIBUTION WIDTH 14.2 % (11.5-14.5); WHITE BLOOD COUNT 5.5 x10^3/uL (4.0-11.0)
[2020-06-24 14:37] LABS: CREATININE 2.6 mg/dL (0.7-1.3); GFR 36.6; POTASSIUM 3.8 mmol/L (3.5-5.1)
[2020-06-24 14:42] LABS: ALBUMIN 4.2 g/dL (3.4-5.0); ALBUMIN/GLOBULIN RATIO 0.9 (1.0-1.7); TOTAL BILIRUBIN 2.4 mg/dL (0.2-1.0); TOTAL PROTEIN 8.7 g/dL (6.4-8.2)
--- NOTE | 2020-06-24 16:29 | RAD ---
EXAM: Abdomen and pelvis CT without intravenous contrast. HISTORY: Nausea and vomiting. TECHNIQUE: Computed tomographic images of the abdomen and pelvis were obtained without intravenous co ntrast. Multiplanar reformatting was performed. *One or more of the following individualized dose reduction techniques were utilized for this examina tion: 1. Automated exposure control. 2. Adjustment of the mA and/or kV according to patient size. 3. Use of iterative reconstruction technique. COMPARISON: 03/29/2020. FINDINGS: Evaluation of the lower thorax is unremarkable. No hepatic lesion is seen. The gallbladder, pancreas, spleen, adrenal glands and kidneys are unremarkable. There is no evidence of appendicitis. There is no evidence of bowel obstruction. There is suggestion of segmental colonic wall thickening likely due to relative underdistention or peristalsis. There is no lymphadenopathy. The aorta is norm al in caliber. There is no suspicious osseous lesion. There are few tiny benign bone islands. IMPRESSION: No acute abdominal or pelvic finding. Electronically signed by: Lynn Bruner MD (06/24/2020 4:27 PM) [id number]
[2020-06-24 16:33] LABS: BILIRUBIN,URINE SMALL (NEG); CLARITY,URINE CLEAR; COLOR,URINE YELLOW; NITRITE,URINE NEGATIVE (NEG); PH,URINE 6.5 (<5.0-8.0); PROTEIN,URINE 100 mg/dL (NEG-TRACE)
[2020-06-24 16:40] LABS: BACTERIA,URINE 0 /HPF (0-FEW); RBC,URINE 0 /HPF (0-2); WBC,URINE 0 /HPF (0-4)
--- NOTE | 2020-06-24 17:00 | PHYS DOC ---
Past Medical History Past Medical History: Diabetes-Type I Additional Past Medical Histor: cataracts, blind/visual impairment Past Surgical History: Other Additional Past Surgical Histo: "CATARACT SURGERY" Smoking Status: Current Every Day Smoker Alcohol Use: None Drug Use: Marijuana General Adult EDM: Chief Complaint: NAUSEA/VOMITING/DIARRHA HPI: HPI: Patient is a 25 year old male with history of diabetes presents emergency department nausea vomiting abdominal pain. Patient reports this is been ongoing for a week. He was seen in the emergency department and given fluids and insulin and sent home. Patient reports he continues to have nausea vomiting. Cannot keep anything down. No diarrhea. No blood in stool. No chest pain shortness breath cough fever chills dysuria hematuria testicular pain. Patient does smoke marijuana and tobacco. Denies other drugs or alcohol. He reports that he did take insulin today Review of Systems: Review of Systems: Review of Systems: Constitutional: Denies fever or chills Eyes: Denies redness or eye pain HENT: Denies nasal congestion or sore throat Respiratory: Denies cough or shortness of breath Cardiovascular: Denies chest pain or palpitations GI: denies denies diarrhea. Positive for abdominal pain nausea vomiting : Denies dysuria or hematuria Musculoskeletal: Denies back pain or joint pain Integument: Denies rash or skin lesions Neurologic: Denies headache, focal weakness or sensory changes Heart Score: C/O Chest Pain: No Current Medications: Current Medications Medications (Trade) Dose Ordered Sig/Stephanie Start Time Stop Time Status Last Admin Dose Admin Ondansetron HCl (Zofran) 4 mg STK-MED ONCE 06/24/20 13:53 06/24/20 13:54 DC Sodium Chloride 1,000 ml @ 1,000 mls/hr 1X ONCE 06/24/20 14:00 06/24/20 14:59 DC 06/24/20 13:55 1,000 MLS/HR Allergies: Allergies: Allergies Coded Allergies Type Severity Reaction Last Updated Verified No Known Drug Allergies 03/29/20 No Physical Exam: PE: *GENERAL APPEARANCE: Awake and alert. Cooperative. HEAD: Normocephalic. Atraumatic. EYES: EOM's grossly intact. Sclera anicteric. Conjunctiva clear ENT:. Airway patent. dry Mucous membranes. No trismus. Tolerating secretions. NECK: Supple. Trachea midline. HEART: Regular rate and rhythm. Radial pulses 2+. Good capillary refill. LUNGS: Respirations unlabored. Clear to auscultation bilaterally. No rales, rhonchi, wheezing or retractions. ABDOMEN: Soft. Upper abdominal tenderness. No guarding or rebound. No CVA tenderness. No palpable or pulsatile mass. EXTREMITIES: No acute deformities. No edema, erythema or calf tenderness. SKIN: Warm and dry. No rash. NEUROLOGICAL: Alert and oriented x3. No gross neurological deficits. Moves all 4 extremities spontaneously. PSYCHIATRIC: Normal mood. Current Patient Data: Labs: Laboratory Tests Test 06/24/20 13:23 06/24/20 14:15 06/24/20 16:24 Glucose (Fingerstick) 309 mg/dL (70-99) H White Blood Count 5.5 x10^3/uL (4.0-11.0) Red Blood Count 5.12 x10^6/uL (4.30-5.70) Hemoglobin 15.5 g/dL (13.0-17.5) Hematocrit 44.5 % (39.0-53.0) Mean Corpuscular Volume 87 fL (79-100) Mean Corpuscular Hemoglobin 30 pg (25-35) Mean Corpuscular Hemoglobin Concent 35 g/dL (31-37) Red Cell Distribution Width 14.2 % (11.5-14.5) Platelet Count 416 x10^3/uL (140-400) H Neutrophils (%) (Auto) 55 % (31-73) Lymphocytes (%) (Auto) 35 % (24-48) Monocytes (%) (Auto) 9 % (0-9) Eosinophils (%) (Auto) 0 % (0-3) Basophils (%) (Auto) 1 % (0-3) Neutrophils # (Auto) 3.0 x10^3/uL (1.8-7.7) Lymphocytes # (Auto) 2.0 x10^3/uL (1.0-4.8) Monocytes # (Auto) 0.5 x10^3/uL (0.0-1.1) Eosinophils # (Auto) 0.0 x10^3/uL (0.0-0.7) Basophils # (Auto) 0.0 x10^3/uL (0.0-0.2) Sodium Level 130 mmol/L (136-145) L Potassium Level 3.8 mmol/L (3.5-5.1) Chloride Level 86 mmol/L (98-107) L Carbon Dioxide Level 37 mmol/L (21-32) H Anion Gap 7 (6-14) Blood Urea Nitrogen 39 mg/dL (8-26) H Creatinine 2.6 mg/dL (0.7-1.3) H Estimated GFR (Cockcroft-Gault) 36.6 BUN/Creatinine Ratio 15 (6-20) Glucose Level 306 mg/dL (70-99) H Calcium Level 10.0 mg/dL (8.5-10.1) Magnesium Level 2.0 mg/dL (1.8-2.4) Total Bilirubin 2.4 mg/dL (0.2-1.0) H Aspartate Amino Transferase (AST) 14 U/L (15-37) L Alanine Aminotransferase (ALT) 27 U/L (16-63) Alkaline Phosphatase 90 U/L (46-116) Total Protein 8.7 g/dL (6.4-8.2) H Albumin 4.2 g/dL (3.4-5.0) Albumin/Globulin Ratio 0.9 (1.0-1.7) L Lipase 100 U/L (73-393) Urine Collection Type Unknown Urine Color Yellow Urine Clarity Clear Urine pH 6.5 (<5.0-8.0) Urine Specific [place] 1.025 (1.000-1.030) Urine Protein 100 mg/dL (NEG-TRACE) Urine Glucose (UA) 500 mg/dL (NEG) Urine Ketones (Stick) >=80 mg/dL (NEG) Urine Blood Negative (NEG) Urine Nitrite Negative (NEG) Urine Bilirubin Small (NEG) Urine Urobilinogen Dipstick 1.0 mg/dL (0.2 mg/dL) Urine Leukocyte Esterase Negative (NEG) Urine RBC 0 /HPF (0-2) Urine WBC 0 /HPF (0-4) Urine Squamous Epithelial Cells Few /LPF Urine Bacteria 0 /HPF (0-FEW) Urine Mucus Slight /LPF Laboratory Tests 06/24/20 14:15 Laboratory Tests 06/24/20 14:15 Vital Signs: Vital Signs Date Time Temp Pulse Resp B/P (MAP) Pulse Ox O2 Delivery O2 Flow Rate FiO2 06/24/20 16:25 96 18 123/90 (101) 99 Room Air 06/24/20 13:19 97.9 97.9 EKG: EKG: [] Radiology/Procedures: Radiology/Procedures: []PROCEDURE: CT ABDOMEN PELVIS WO CONTRAST EXAM: Abdomen and pelvis CT without intravenous contrast. HISTORY: Nausea and vomiting. TECHNIQUE: Computed tomographic images of the abdomen and pelvis were obtained without intravenous contrast. Multiplanar reformatting was performed. *One or more of the following individualized dose reduction techniques were utilized for this examination: 1. Automated exposure control. 2. Adjustment of the mA and/or kV according to patient size. 3. Use of iterative reconstruction technique. COMPARISON: 03/29/2020. FINDINGS: Evaluation of the lower thorax is unremarkable. No hepatic lesion is seen. The gallbladder, pancreas, spleen, adrenal glands and kidneys are unremarkable. There is no evidence of appendicitis. There is no evidence of bowel obstruction. There is suggestion of segmental colonic wall thickening likely due to relative underdistention or peristalsis. There is no lymphadenopathy. The aorta is normal in caliber. There is no suspicious osseous lesion. There are few tiny benign bone islands. IMPRESSION: No acute abdominal or pelvic finding. Electronically signed by: Lynn Gonzales MD (06/24/2020 4:27 PM) [id number] DICTATED and SIGNED BY: LYNN GONZALES MD DATE: 06/24/20 [id number] 0 Course & Med Decision Making: Course & Med Decision Making Medical decision making: This is a 25-year-old male presents with nausea vomiting for 1 week. Here in the emergency department patient is actively vomiting. Given Zofran and fluids. He is afebrile. Vital signs otherwise stable. Patient has no leukocytosis. Sodium 131. Anion gap normal. Patient's creatinine is 2.6. Glucose 300. Total bilirubin 2.4. Lipase 100. Urine does not appear infected. CT abdomen pelvis shows no acute findings. Gallbladder pancreas spleen and adrenal adrenal labs are unremarkable. Creatinine at 223 shows 1[address] abdomen shows no acute findings. Patient continues to have nausea vomiting. Patient does not feel comfortable going home. We will give her Reglan and Benadryl. Will admit for intractable nausea vomiting. At this time based on patient's symptoms and findings will admit to the hospital for further observation and evaluation. Spoke with patient. Agreeable to admission. They are aware of all labs and imaging. All questions answered and patient stable at time of admission. Dragon Disclaimer: Dragon Disclaimer: This electronic medical record was generated, in whole or in part, using a voice recognition dictation system. I have spoken to the patient and/or caregivers. I have explained the patient's condition, diagnoses and treatment plan based on the information available to me at this time. I have answered the patient's and/or caregiver's questions and addressed my concerns. The patient and/or caregivers has a good understanding of the patient's diagnosis, condition and treatment plan as can be expected at this point. The patient has been stabilized within the capability of the emergency department. The patient will be transported for further care and management or will be moved to an observation or inpatient service. I have communicated with the staff or medical practitioner taking over this patient's care. Departure Departure Impression: Primary Impression: Nausea & vomiting Additional Impressions: Hyperglycemia Acute kidney injury Dehydration Disposition: ADMITTED INPT THIS HOSP Admitting Physician: JESSICA (DR. TIAN AT 1830. Accepts admission. Will see the patient. Agreeable to plan. patient stable on admission.) Condition: IMPROVED Referrals: Razia FLOWER MD (PCP) KINDRA BARNHART DO Jun 24, 2020 17:00
[2020-06-24] MEDS ORDERED: diphenhydrAMINE 50 MG/ML VIAL IM ONE (18:00)
[2020-06-24] MEDS ORDERED: METOCLOPRAMIDE HCL 10 MG/2 ML VIAL. IVP ONE (18:00)
[2020-06-24] MEDS ORDERED: ONDANSETRON PF 4 MG/2 ML VIAL. IV PRN (18:45)
[2020-06-24 22:40] VITALS: BP 111/76
[2020-06-25] MEDS ORDERED: DEXTROSE 50% 25 GM / 50ML DISP.SYRIN. IV PRN
[2020-06-25] MEDS ORDERED: ONDANSETRON PF 4 MG/2 ML VIAL. IV PRN
[2020-06-25] MEDS ORDERED: HYDROcodone/APAP 5/325MG 1 TAB TABLET PO PRN
[2020-06-25] MEDS: IV NORMAL SALINE 1000ML BAG 1,000 ML IV SCH ×2 (00:06→07:09)
[2020-06-25] MEDS: INSULIN GLARGINE SYRINGE. SQ SCH ×2 (00:30→01:09)
[2020-06-25] MEDS: INSULIN LISPRO 300 UNITS/3 ML VIAL. SQ SCH ×5 (01:09→12:15)
[2020-06-25 02:48] VITALS: BP 115/70
[2020-06-25 07:00] VITALS: BP 135/91
[2020-06-25] MEDS: METOCLOPRAMIDE 10 MG TABLET. PO SCH ×2 (07:08→12:13)
--- NOTE | 2020-06-25 08:05 | PDOC1 ---
History and Physical Date of Service: DOS: DATE: 06/25/20 TIME: 08:02 Chief Complaint: Chief Complain: Intractable nausea vomiting History of Present Illness: HPI: 25 year old male with history of diabetes presents emergency department nausea vomiting abdominal pain. Patient reports this is been ongoing for a week. He was seen in the emergency department and given fluids and insulin and sent home. Patient reports he continues to have nausea vomiting. Cannot keep anything down. No diarrhea. No blood in stool. No chest pain shortness breath cough fever chills dysuria hematuria testicular pain. Patient does smoke marijuana and tobacco. Denies other drugs or alcohol. Past Medical/Surgical History: PMH/PSH: Past Medical History: Diabetes-Type I, cataracts, blind/visual impairment Past Surgical History: "CATARACT SURGERY" Allergies: Allergies: Coded Allergies: No Known Drug Allergies (Unverified , 03/29/20) Family History: Family History: Reviewed with no relevant findings Social History: Social History: Smoking Status: Current Every Day Smoker Alcohol Use: None Drug Use: Marijuana Current Medications: Current Medications Current Medications Ondansetron HCl (Zofran) 8 mg 1X ONCE IVP Last administered on 06/24/20at 13:56; Start 06/24/20 at 14:00; Stop 06/24/20 at 14:01; Status DC Sodium Chloride 1,000 ml @ 1,000 mls/hr 1X ONCE IV Last administered on 06/24/20at 13:55; Start 06/24/20 at 14:00; Stop 06/24/20 at 14:59; Status DC Ondansetron HCl (Zofran) 4 mg STK-MED ONCE .ROUTE ; Start 06/24/20 at 13:53; Stop 06/24/20 at 13:54; Status DC Metoclopramide HCl (Reglan Vial) 5 mg 1X ONCE IVP Last administered on 06/24/20at 18:18; Start 06/24/20 at 18:00; Stop 06/24/20 at 18:01; Status DC Diphenhydramine HCl (Benadryl) 25 mg 1X ONCE IM Last administered on 06/24/20at 18:19; Start 06/24/20 at 18:00; Stop 06/24/20 at 18:01; Status DC Ondansetron HCl (Zofran) 4 mg PRN Q8HRS PRN IV NAUSEA/VOMITING Last administered on 06/24/20at 22:33; Start 06/24/20 at 18:45; Stop 06/25/20 at 00:01; Status DC Metoclopramide HCl (Reglan) 10 mg QIDACHS PO Last administered on 06/25/20at 07:08; Start 06/25/20 at 07:30 Trazodone HCl (Desyrel) 200 mg QHS PO ; Start 06/25/20 at 21:00 Non-Formulary Medication (Insulin Glargine,Hum.rec.anlog (Lantus Solostar)) 20 unit QHS SQ ; Start 06/25/20 at 21:00; Status UNV Insulin Human Lispro (HumaLOG) 15 units TIDWMEALS SQ ; Start 06/25/20 at 08:00 Insulin Human Lispro (HumaLOG) 0-9 UNITS QIDACHS SQ Last administered on 06/25/20at 01:09; Start 06/25/20 at 00:30 Dextrose (Dextrose 50%-Water Syringe) 12.5 gm PRN Q15MIN PRN IV SEE COMMENTS; Start 06/25/20 at 00:00 Sodium Chloride 1,000 ml @ 75 mls/hr [id number] IV Last administered on 06/25/20at 07:09; Start 06/25/20 at 00:00 Acetaminophen/ Hydrocodone Bitart (Lortab 5/325) 1 tab PRN Q4HRS PRN PO PAIN; Start 06/25/20 at 00:00 Docusate Sodium (Colace) 100 mg BID PO ; Start 06/25/20 at 09:00 Sennosides (Senna) 8.6 mg DAILY PO ; Start 06/25/20 at 09:00 Ondansetron HCl (Zofran) 4 mg PRN Q6HRS PRN IV NAUSEA/VOMITING; Start 06/25/20 at 00:00 Insulin Glargine (Lantus Syringe) 20 unit QHS SQ ; Start 06/25/20 at 00:30 Active Scripts Active Zofran (Ondansetron Hcl) 4 Mg Tablet 1 Tab PO Q6HRS PRN 30 Days Humalog (Insulin Lispro) 100 Unit/1 Ml Insuln.pen 15 Unit SQ TIDWMEALS 90 Days Metoclopramide Hcl 10 Mg Tablet 10 Mg PO QIDACHS 90 Days Lantus Solostar (Insulin Glargine,Hum.rec.anlog) 100 Unit/1 Ml Insuln.pen 20 Unit SQ QHS 90 Days Trazodone Hcl 100 Mg Tablet 2 Tab PO QHS 90 Days ROS: Review of Systems Review of System REVIEW OF SYSTEMS: GENERAL: Denies weakness SKIN: No bruising, hair changes or rashes. EYES: No blurred, double or loss of vision. NOSE AND THROAT: No history of nosebleeds, hoarseness or sore throat. HEART: No history of palpitations, chest pain or shortness of breath on exertion. LUNGS: Denies cough, hemoptysis, wheezing or shortness of breath. GASTROINTESTINAL: Denies changes in appetite, nausea, vomiting, diarrhea or constipation. GENITOURINARY: No history of frequency, urgency, hesitancy or nocturia. NEUROLOGIC: Denies history of numbness, tingling, or tremor. PSYCHIATRIC: No history of panic, anxiety or depression. ENDOCRINE: No history of heat or cold intolerance, polyuria or polydipsia. EXTREMITIES: Denies joint pain, pain on walking or stiffness. Physical Exam: Vital Signs: Vital Signs Date Time Temp Pulse Resp B/P (MAP) Pulse Ox O2 Delivery O2 Flow Rate FiO2 06/25/20 02:48 97.9 85 18 115/70 (85) 96 Room Air 97.9 Physcial Exam: GEN: No apparent distress. Alert and oriented HEENT: Normal cephalic, atraumatic, external auditory canals are patent EYES: Extraocular muscles are intact, pupil are equally round and reactive to light and accommodation MUSCULOSKELETAL: Well developed , well nourished, good range of motion ENDOCRINE: No thyromegaly was palpated LYMPHATICS: No cervical chain or axillary nodes were noted HEMATOPOIETIC: No bruising NECK: Supple, no JVD, no thyromegaly was noted LUNGS: Clear to auscultation in all lung spear without rhonchi or wheezing HEART: RRR, S!, S2 present. Peripheral pulses intact, no obvious murmurs noted ABDOMEN: Soft, nontender. Positive bowel sounds, no organomegaly, normal bowel sounds EXTREMITIES: Without clubbing, cyanosis, or edema. Pedal pulses intact. Negative Homans sign NEUROLOGIC: Normal speech and tone. A&O x 3, moves all extremities, no obvious focal deficits PSYCHIATRIC: Normal affect, normal mood. Stable SKIN: No ulcerations or rashes, good skin turgor, no jaundice VASCULAR: Good capillary refill, neurovascular bundle appears to be intact Labs: Labs: Laboratory Tests Test 06/24/20 13:23 06/24/20 14:15 06/24/20 16:24 06/24/20 20:59 Glucose (Fingerstick) 309 mg/dL (70-99) 270 mg/dL (70-99) White Blood Count 5.5 x10^3/uL (4.0-11.0) Red Blood Count 5.12 x10^6/uL (4.30-5.70) Hemoglobin 15.5 g/dL (13.0-17.5) Hematocrit 44.5 % (39.0-53.0) Mean Corpuscular Volume 87 fL (79-100) Mean Corpuscular Hemoglobin 30 pg (25-35) Mean Corpuscular Hemoglobin Concent 35 g/dL (31-37) Red Cell Distribution Width 14.2 % (11.5-14.5) Platelet Count 416 x10^3/uL (140-400) Neutrophils (%) (Auto) 55 % (31-73) Lymphocytes (%) (Auto) 35 % (24-48) Monocytes (%) (Auto) 9 % (0-9) Eosinophils (%) (Auto) 0 % (0-3) Basophils (%) (Auto) 1 % (0-3) Neutrophils # (Auto) 3.0 x10^3/uL (1.8-7.7) Lymphocytes # (Auto) 2.0 x10^3/uL (1.0-4.8) Monocytes # (Auto) 0.5 x10^3/uL (0.0-1.1) Eosinophils # (Auto) 0.0 x10^3/uL (0.0-0.7) Basophils # (Auto) 0.0 x10^3/uL (0.0-0.2) Sodium Level 130 mmol/L (136-145) Potassium Level 3.8 mmol/L (3.5-5.1) Chloride Level 86 mmol/L (98-107) Carbon Dioxide Level 37 mmol/L (21-32) Anion Gap 7 (6-14) Blood Urea Nitrogen 39 mg/dL (8-26) Creatinine 2.6 mg/dL (0.7-1.3) Estimated GFR (Cockcroft-Gault) 36.6 BUN/Creatinine Ratio 15 (6-20) Glucose Level 306 mg/dL (70-99) Calcium Level 10.0 mg/dL (8.5-10.1) Magnesium Level 2.0 mg/dL (1.8-2.4) Total Bilirubin 2.4 mg/dL (0.2-1.0) Aspartate Amino Transf (AST/SGOT) 14 U/L (15-37) Alanine Aminotransferase (ALT/SGPT) 27 U/L (16-63) Alkaline Phosphatase 90 U/L (46-116) Total Protein 8.7 g/dL (6.4-8.2) Albumin 4.2 g/dL (3.4-5.0) Albumin/Globulin Ratio 0.9 (1.0-1.7) Lipase 100 U/L (73-393) Urine Collection Type Unknown Urine Color Yellow Urine Clarity Clear Urine pH 6.5 (<5.0-8.0) Urine Specific [place] 1.025 (1.000-1.030) Urine Protein 100 mg/dL (NEG-TRACE) Urine Glucose (UA) 500 mg/dL (NEG) Urine Ketones (Stick) >=80 mg/dL (NEG) Urine Blood Negative (NEG) Urine Nitrite Negative (NEG) Urine Bilirubin Small (NEG) Urine Urobilinogen Dipstick 1.0 mg/dL (0.2 mg/dL) Urine Leukocyte Esterase Negative (NEG) Urine RBC 0 /HPF (0-2) Urine WBC 0 /HPF (0-4) Urine Squamous Epithelial Cells Few /LPF Urine Bacteria 0 /HPF (0-FEW) Urine Mucus Slight /LPF Test 06/24/20 22:28 06/25/20 07:58 Glucose (Fingerstick) 254 mg/dL (70-99) 224 mg/dL (70-99) Laboratory Tests Test 06/24/20 13:23 06/24/20 14:15 06/24/20 16:24 06/24/20 20:59 Glucose (Fingerstick) 309 mg/dL (70-99) 270 mg/dL (70-99) White Blood Count 5.5 x10^3/uL (4.0-11.0) Red Blood Count 5.12 x10^6/uL (4.30-5.70) Hemoglobin 15.5 g/dL (13.0-17.5) Hematocrit 44.5 % (39.0-53.0) Mean Corpuscular Volume 87 fL (79-100) Mean Corpuscular Hemoglobin 30 pg (25-35) Mean Corpuscular Hemoglobin Concent 35 g/dL (31-37) Red Cell Distribution Width 14.2 % (11.5-14.5) Platelet Count 416 x10^3/uL (140-400) Neutrophils (%) (Auto) 55 % (31-73) Lymphocytes (%) (Auto) 35 % (24-48) Monocytes (%) (Auto) 9 % (0-9) Eosinophils (%) (Auto) 0 % (0-3) Basophils (%) (Auto) 1 % (0-3) Neutrophils # (Auto) 3.0 x10^3/uL (1.8-7.7) Lymphocytes # (Auto) 2.0 x10^3/uL (1.0-4.8) Monocytes # (Auto) 0.5 x10^3/uL (0.0-1.1) Eosinophils # (Auto) 0.0 x10^3/uL (0.0-0.7) Basophils # (Auto) 0.0 x10^3/uL (0.0-0.2) Sodium Level 130 mmol/L (136-145) Potassium Level 3.8 mmol/L (3.5-5.1) Chloride Level 86 mmol/L (98-107) Carbon Dioxide Level 37 mmol/L (21-32) Anion Gap 7 (6-14) Blood Urea Nitrogen 39 mg/dL (8-26) Creatinine 2.6 mg/dL (0.7-1.3) Estimated GFR (Cockcroft-Gault) 36.6 BUN/Creatinine Ratio 15 (6-20) Glucose Level 306 mg/dL (70-99) Calcium Level 10.0 mg/dL (8.5-10.1) Magnesium Level 2.0 mg/dL (1.8-2.4) Total Bilirubin 2.4 mg/dL (0.2-1.0) Aspartate Amino Transf (AST/SGOT) 14 U/L (15-37) Alanine Aminotransferase (ALT/SGPT) 27 U/L (16-63) Alkaline Phosphatase 90 U/L (46-116) Total Protein 8.7 g/dL (6.4-8.2) Albumin 4.2 g/dL (3.4-5.0) Albumin/Globulin Ratio 0.9 (1.0-1.7) Lipase 100 U/L (73-393) Urine Collection Type Unknown Urine Color Yellow Urine Clarity Clear Urine pH 6.5 (<5.0-8.0) Urine Specific [place] 1.025 (1.000-1.030) Urine Protein 100 mg/dL (NEG-TRACE) Urine Glucose (UA) 500 mg/dL (NEG) Urine Ketones (Stick) >=80 mg/dL (NEG) Urine Blood Negative (NEG) Urine Nitrite Negative (NEG) Urine Bilirubin Small (NEG) Urine Urobilinogen Dipstick 1.0 mg/dL (0.2 mg/dL) Urine Leukocyte Esterase Negative (NEG) Urine RBC 0 /HPF (0-2) Urine WBC 0 /HPF (0-4) Urine Squamous Epithelial Cells Few /LPF Urine Bacteria 0 /HPF (0-FEW) Urine Mucus Slight /LPF Test 06/24/20 22:28 06/25/20 07:58 Glucose (Fingerstick) 254 mg/dL (70-99) 224 mg/dL (70-99) Assessment/Plan Assessment/Plan Intractable nausea vomiting Hyperglycemia uncontrolled Acute on chronic kidney injury due to vasomotor nephropathy and diabetic nephropathy most likely Diabetes mellitus type 1 uncontrolled Medical nonadherence Acute electrolyte derangementhyponatremia, hypochloremia all related to volume depletion Admit to medicine for further management Continue IV fluids N.p.o., advance diet as tolerated [] for DVT prophylaxis [] GI prophylaxis ADA diet Full code Discussed with RN and SW Disposition [] Surrogate decision maker is the [] Justifications for Admission Other Justification severe hyperglycemia and NPO status YANET MARTIN MD Jun 25, 2020 08:05
[2020-06-25] MEDS ORDERED: IV NORMAL SALINE 1000ML BAG 1,000 ML IV PRN (08:15)
[2020-06-25] MEDS ORDERED: SENNOSIDES 8.6 MG TABLET PO SCH (09:00)
[2020-06-25] MEDS ORDERED: DOCUSATE SODIUM 100 MG CAPSULE. PO SCH (09:00)
[2020-06-25 11:00] VITALS: BP 120/88
--- NOTE | 2020-06-25 14:32 | NUR ---
Pt requesting to sign out AMA due to family emergency. This RN informed Dr. Gamble by telephone. Regina, nurse manager beauty also notified and stated she would inform Nano, nursing harvest supervisor. Security also notified. Pt informed of potential risks, including alterations in blood glucose and recurrent nausea and vomiting. Pt verbalizes understanding. Addendum: 06/25/20 at 1441 by MIGUEL MOMIN RN Add to previous: valerie Pablo RN notified as well.
--- NOTE | 2020-06-25 14:41 | NUR ---
Pt left AMA at 1440 by ambulation via private vehicle. and KAT Bae accompanied pt to vehicle. All belongings returned to pt.
--- NOTE | 2020-06-25 14:52 | NUR ---
SW following for discharge planning. Spoke with RN and reviewed chart. SW consulted for frequent hospitalizations. Pt has a hx of noncompliance and multiple hospital admissions r/t DKA. SW familiar with this pt from previous admissions. Pt left AMA prior to this SW being able to meet and evaluate. No further SW needs at this time.
[2020-06-25] MEDS ORDERED: traZODone 100 MG TABLET. PO SCH (21:00)
[2020-06-25] MEDS ORDERED: INSULIN GLARGINE HUM REC ANLOG 20 UNIT SQ SCH (21:00)
== END 2020-06-25 14:44 | disposition left against medical advice (07) ==
LOC: ER 13:19 → ED HOLD 18:30 → 6 SOUTH 21:46
PROVIDERS: ADMIT Internal Medicine; ATTEND Internal Medicine
DX: E10.65 Type 1 diabetes mellitus with hyperglycemia (principal); E10.22 Type 1 diabetes mellitus with diabetic chronic kidney disease; N17.9 Acute kidney failure, unspecified; N17.0 Acute kidney failure with tubular necrosis; N18.9 Chronic kidney disease, unspecified; E86.0 Dehydration; E87.1 Hypo-osmolality and hyponatremia; H54.7 Unspecified visual loss; E87.8 Other disorders of electrolyte and fluid balance, not elsewhere classified; F12.90 Cannabis use, unspecified, uncomplicated; F17.210 Nicotine dependence, cigarettes, uncomplicated; Z79.4 Long term (current) use of insulin; Z91.19 Patient's noncompliance with other medical treatment and regimen; Z98.49 Cataract extraction status, unspecified eye
CPT/HCPCS: 36415; 74176; 80053; 81001; 82962; 83690; 83735; 85025; 96361; 96372; 96374; 96375; 96376; 99284; 99406; G0378; J1200; J1815; J2405; J2765; J7030; G0379